=== PATIENT | male | born 1945 ===

== ENCOUNTER 2017-01-03 12:24 | Inpatient (IN) | payer OTHER ==
[2017-01-03 12:34] VITALS: BMI 29.1
[2017-01-03] MEDS ORDERED: Albuterol 0.083% Inhal Sol (2.5 mg/3 mL) UD IH STA (13:03)
--- NOTE | 2017-01-03 13:07 | C.PDOC ---
History Of Present Illness <Esther Lovett - Last Filed: 01/03/17 13:45> <Juana Dickson - Last Filed: 01/03/17 18:14> 71 yo male w/PMHx of CAD s/p CABG 4 yrs ago, smoker, on Coumadin, admits homeless at present time (arrived from [place] and currently leave in car for 3 months), come in for evaluation of SOB on exertion, peripheral edema gradually developed for past few days associated with chest tightness, upper back pain. Otherwise, pt denies high fever, chills, headache, dizziness, wheezing, palpitation, diaphoresis, abd. pain, N/V/D, UTI sx, denies weakness, sensory or vascular deficits. At present time, pt appears in mod respiratory distress. Poor historian. no family member available. (Juana Dickson) <Esther Lovett - Last Filed: 01/03/17 13:45> History Per: Patient Onset/Duration Of Symptoms: Gradual Current Symptoms Are (Timing): Worse <RandolphJuana - Last Filed: 01/03/17 18:14> Time Seen by Provider: 01/03/17 12:46 Past Medical History Reviewed: Historical Data, Nursing Documentation, Vital Signs - Medical History PMH: AMI-STEMI, Atrial Fibrillation, CAD, Cardia Arrhythmia, CHF, COPD, HTN Surgical History: CABG (4 yrs ago) Family History: States: No Known Family Hx - Social History Hx Tobacco Use: Yes Hx Alcohol Use: No Hx Substance Use: No - Immunization History Hx Tetanus Toxoid Vaccination: No Hx Influenza Vaccination: No Hx Pneumococcal Vaccination: No <ClarencefranciscaJuana - Last Filed: 01/03/17 18:14> Vital Signs: Last Vital Signs Temp 97.6 F 01/03/17 12:47 Pulse 104 H 01/03/17 15:21 Resp 23 01/03/17 15:21 BP 119/78 01/03/17 15:21 Pulse Ox 100 01/03/17 16:12 Review Of Systems Except As Marked, All Systems Reviewed And Found Negative. Constitutional: Negative for: Fever, Chills Eyes: Negative for: Vision Change ENT: Negative for: Mouth Swelling, Throat Pain Cardiovascular: Positive for: Chest Pain, Orthopnea, Edema. Negative for: Palpitations, Light Headedness Respiratory: Positive for: Shortness of Breath, SOB with Excertion. Negative for: Cough, Wheezing Gastrointestinal: Negative for: Nausea, Vomiting, Abdominal Pain Genitourinary: Negative for: Dysuria, Frequency, Incontinence Musculoskeletal: Negative for: Neck Pain, Back Pain Skin: Negative for: Rash Neurological: Negative for: Weakness, Numbness, Altered Mental Status, Headache , Dizziness <Juana Dickson - Last Filed: 01/03/17 18:14> Physical Exam - Physical Exam Appears: Well, Non-toxic, No Acute Distress Skin: Normal Color, Warm, Dry, No Rash Head: Atraumatic, Normacephalic Eye(s): bilateral: Normal Inspection, PERRL, EOMI Ear(s): Bilateral: Normal Nose: Normal, No Discharge Oral Mucosa: Moist, No Drooling Tongue: Normal Appearing Lips: Normal Appearing Throat: Normal, No Erythema, No Exudate, No Drooling Neck: Normal, Normal ROM, Trachea Midline Cardiovascular: Rhythm Irregular (TACHY), No Friction Rub, No Murmur, JVD Respiratory: Normal Breath Sounds, Decreased Breath Sounds (bibasilar), No Stridor, No Wheezing Gastrointestinal/Abdominal: Normal Exam, Soft, No Tenderness, No Distention, No Guarding Back: Normal Inspection, No Vertebral Tenderness Extremity: Normal ROM, Pedal Edema (L>R pitting edema 2+/2+ B/L lEs), No Calf Tenderness, No Deformity Neurological/Psych: Oriented x3, Normal Speech, Normal Motor, Normal Sensation, Normal Reflexes <Juana Dickson - Last Filed: 01/03/17 18:14> ED Course And Treatment - Laboratory Results Result Diagrams: 01/03/17 13:23 01/03/17 13:23 <Esther Lovett - Last Filed: 01/03/17 13:45> - Laboratory Results Result Diagrams: 01/03/17 13:23 01/03/17 13:23 ECG: Interpreted By Me (AND ED ATTENDING) ECG Interpretation: Normal, No Acute Changes, Abnormal Interpretation Of ECG: sINUS TACHY WITH PACED@111/MIN,INCOMPLETE RBBB O2 Sat by Pulse Oximetry: 100 Pulse Ox Interpretation: Normal - Radiology CXR: Interpreted by Me, Viewed By Me CXR Interpretation: Yes: Cardiomegaly - Other Rad CXR X-Ray: Read By Radiologist Interpretation: Accession No. : [id number]. Patient Name / ID : WILTON BEAR / [id number]. Exam Date : 01/03/2017 12:55:47 ( Approved ). Study Comment : Sex / Age : M / [id number]. Creator : FREDO BABCOCK MD. Dictator : FREDO BABCOCK MD. Mooner : Filter Helper : FREDO BABCOCK MD. Approver2 : Report Date : 01/03/2017 13:20:21. My Comment : . PROCEDURE: CHEST RADIOGRAPH, 1 VIEW. HISTORY: chest pain. COMPARISON: None available. FINDINGS: LUNGS: There is pulmonary venous congestion. There is no focal consolidation. PLEURA: No pneumothorax or pleural fluid seen. CARDIOVASCULAR: There is mild cardiomegaly. Status post median sternotomy and aortic valve replacement. There is a left-sided AICD. OSSEOUS STRUCTURES: No significant abnormalities. VISUALIZED UPPER ABDOMEN: Normal. OTHER FINDINGS: None. IMPRESSION: Mild cardiomegaly and pulmonary venous congestion. Progress Note: Pt was OBS in ED for 2 hours and slightly improved during OBS after ED tx. Lasix/Vapotherm/Cardizem qtt. traffic monitor specialist. Case discussed with ED qattenidng and pt was evaluated by . Blood work review. Case discussed with med-on-call and admission arranged. Admission to medicine-on- call placed <Juana Dickson - Last Filed: 01/03/17 18:14> Supervising Attending Note - Supervising Attending Note The Documented history was done by the: Physician Geoint Analyst The documented physical exam was done by the: Physician Geoint Analyst The documented procedures were done by the: Physician Geoint Analyst EM CAVEAT: Language Barrier - Attestation: I have personally seen and examined this patient.: Yes I have fully participated in the care of the patient.: Yes I have reviewed all pertinent clinical information, including history, physical exam and plan: Yes <Esther Lovett - Last Filed: 01/03/17 13:45> <Juana Dickson - Last Filed: 01/03/17 18:14> - Notes: Notes:: ?NEW ONSET VS EXAC CHF X 2 DAYS. +SOB/SIEGEL. +SWELLING. ON COUMADIN. HO PPM. HO CABG EXAM ABOVE (Esther Lovett) Critical Care Time - Critical Care Note Total Time (in mins): 40 Documented critical care: time excludes all time spent performing seperately billable procedures. <Juana Dickson - Last Filed: 01/03/17 18:14> Disposition <Esther Lovett - Last Filed: 01/03/17 13:45> - Disposition Disposition Time: 14:50 <Juana Dickson - Last Filed: 01/03/17 18:14> - Disposition Disposition: HOSPITALIZED Condition: STABLE - Clinical Impression Clinical Impression: Acute exacerbation of CHF (congestive heart failure)
[2017-01-03] MEDS ORDERED: Albuterol 0.083% Inhal Sol (2.5 mg/3 mL) UD ONE (13:14)
--- NOTE | 2017-01-03 13:21 | RAD ---
PROCEDURE: CHEST RADIOGRAPH, 1 VIEW HISTORY: chest pain COMPARISON: None available. FINDINGS: LUNGS: There is pulmonary venous congestion. There is no focal consolidation PLEURA: No pneumothorax or pleural fluid seen. CARDIOVASCULAR: There is mild cardiomegaly. Status post median sternotomy and aortic valve replacement. There is a left-sided AICD. OSSEOUS STRUCTURES: No significant abnormalities. VISUALIZED UPPER ABDOMEN: Normal. OTHER FINDINGS: None. IMPRESSION: Mild cardiomegaly and pulmonary venous congestion.
[2017-01-03 13:25] LABS: BASO # 0.1 K/uL (0.0-0.2); BASO % 2.7 % (0.0-2.0); EOS # 0.1 K/uL (0.0-0.7); EOS % 2.7 % (0.0-4.0); HEMATOCRIT 37.9 % (35.0-51.0); LYMPH # 0.7 K/uL (1.0-4.3); LYMPH % 12.4 % (20.0-40.0); MEAN CELL VOLUME 80.9 fL (80.0-94.0); MEAN CORPUSCULAR HEMOGLOBIN 26.5 pg (27.0-31.0); MEAN CORPUSCULAR HGB CONC 32.8 g/dL (33.0-37.0); MONO # 0.7 K/uL (0.0-0.8); MONO % 13.1 % (0.0-10.0); WHITE BLOOD COUNT 5.4 K/uL (4.8-10.8)
[2017-01-03 13:33] LABS: CHLORIDE 99 mmol/L (98-107); SODIUM 141 mmol/L (132-148)
[2017-01-03 13:35] LABS: POTASSIUM 5.4 mmol/L (3.6-5.2)
[2017-01-03 13:36] LABS: ALB/GLOB RATIO 1.1 (1.0-2.1); ALKALINE PHOSPHATASE 96 U/L (38-126); ALT/SGPT 34 U/L (21-72); AST/SGOT 44 U/L (17-59); BILIRUBIN,TOTAL 1.1 mg/dL (0.2-1.3); BLOOD UREA NITROGEN 12 mg/dL (9-20); CARBON DIOXIDE 26 mmol/L (22-30); GFR AFRICAN-AMERICAN > 60; GLUCOSE,RANDOM 90 mg/dL (75-110); TOTAL PROTEIN 7.5 g/dL (6.3-8.3)
[2017-01-03 13:37] LABS: CALCIUM 9.6 mg/dl (8.6-10.4)
[2017-01-03 16:43] LABS: INR 1.3; PARTIAL THROMBOPLASTIN TIME 33 SECONDS (21-34)
--- NOTE | 2017-01-03 20:34 | CP.PCM.HP ---
History of Present Illness - History of Present Illness History of Present Illness: Patient is a 71 year old male with past medical history including AL, CAD with history of CABG and valve replacement 6-7 years ago. Patient reports that for the past 2-3 days he has had shortness of breath and dizziness that has been getting progressively worse. Patient also reports right-sided chest pain that is reproducible on palpation. Patient states he has been living in his car and has not had medical care recently since moving to [place]. Patient denies palpitations, chest pressure, abdominal pain, nausea, or vomiting. Patient also reports taking 5mg of coumadin nightly but does not know for what condition he takes it. Patient denies history of blood clots. Patient currently resting comfortably on high flow oxygen by nasal canula. PMHx: CAD, AL, arrhythmia PSHx: CABG with vessel harvest from right leg, valve replacement Meds: coumadin 5mg FamHx: denies Social Hx: smokes 2-3 cigarettes per day for 60 years, denies alcohol and drugs , homeless- lives in car Present on Admission - Present on Admission Any Indicators Present on Admission: No Review of Systems - Constitutional Constitutional: Lethargy. absent: Chills, Fever - EENT Eyes: absent: Blurred Vision Nose/Mouth/Throat: absent: Nasal Congestion - Cardiovascular Cardiovascular: Dyspnea, Leg Edema, Lightheadedness. absent: Chest Pain at Rest , Palpitations - Respiratory Respiratory: Dyspnea, Dyspnea on Exertion - Gastrointestinal Gastrointestinal: absent: Diarrhea, Nausea, Vomiting - Genitourinary Genitourinary: absent: Difficulty Urinating - Integumentary Integumentary: absent: Rash - Neurological Neurological: Dizziness Past Patient History - Infectious Disease Hx of Infectious Diseases: None - Past Medical History & Family History Past Medical History?: Yes - Past Social History Smoking Status: Light Smoker < 10 Cigarettes Daily - CARDIAC Hx Atrial Fibrillation: Yes Hx Cardia Arrhythmia: Yes Hx Congestive Heart Failure: Yes Hx Hypertension: Yes Hx Pacemaker: Yes - PULMONARY Hx Chronic Obstructive Pulmonary Disease (COPD): Yes - MUSCULOSKELETAL/RHEUMATOLOGICAL Hx Falls: No - PSYCHIATRIC Hx Substance Use: No - SURGICAL HISTORY Hx Coronary Artery Bypass Graft: Yes (4 yrs ago) - ANESTHESIA Hx Anesthesia: Yes Hx Anesthesia Reactions: No Hx Malignant Hyperthermia: No Meds Allergies/Adverse Reactions: Allergies Allergy/AdvReac Type Severity Reaction Status Date / Time No Known Allergies Allergy Verified 01/03/17 12:47 Physical Exam - Constitutional Appears: Non-toxic, No Acute Distress - Head Exam Head Exam: ATRAUMATIC, NORMOCEPHALIC - Eye Exam Eye Exam: EOMI - ENT Exam ENT Exam: Mucous Membranes Moist - Respiratory Exam Respiratory Exam: Rales, Wheezes - Cardiovascular Exam Cardiovascular Exam: +S1, +S2 - GI/Abdominal Exam GI & Abdominal Exam: Normal Bowel Sounds, Soft. absent: Tenderness - Extremities Exam Extremities exam: Positive for: pedal edema (bilateral pitting edema) Additional comments: scar right leg from vessel harvest - Neurological Exam Neurological exam: Alert - Psychiatric Exam Psychiatric exam: Normal Affect, Normal Mood - Skin Skin Exam: Dry, Warm Results - Vital Signs Recent Vital Signs: Last Vital Signs Temp 98.0 F 01/03/17 19:46 Pulse 80 01/03/17 19:46 Resp 16 01/03/17 20:10 BP 107/75 01/03/17 19:46 Pulse Ox 98 01/03/17 19:59 - Labs Result Diagrams: 01/03/17 13:23 01/03/17 21:37 Labs: Laboratory Results - last 24 hr 01/03/17 16:01 PT 14.5 H INR 1.3 APTT 33 D-Dimer, Quantitative < 200 Assessment & Plan (1) Acute exacerbation of CHF (congestive heart failure) Assessment and Plan: admit to telemetry BNP 4560 on admission patient received 20mg IV lasix in ER will continue with lasix 40mg IV BID starting aldactone 25mg PO Daily starting digoxin- will give 0.25mg today, start 0.125mg tomorrow starting lisinopril 10mg daily patient with AICD, will check echo to determine EF CXR: mild cardiomegaly, mild pulmonary venous congestion. s/p sternotomy, aortic valve replacement, AICD Status: Acute (2) History of AL (myocardial infarction) Assessment and Plan: first troponin 0.0360, second troponin 0.0180 will continue to trend Status: Acute (3) Hyperkalemia Assessment and Plan: potassium 5.4 on admission patient received lasix and albuterol nebulizer in ED repeat BMP potassium 4.1 Status: Acute (4) Tachycardia Assessment and Plan: EKG in ER: sinus tachycardia at 100, paced, incomplete RBBB patient started on cardizem drip at 5mg/h in the ER- will discontinue starting patient on digoxin- one dose 0.25mg today, 0.125mg starting tomorrow Status: Acute (5) Lower extremity edema Assessment and Plan: will check venous doppler Status: Acute (6) Prophylactic measure Assessment and Plan: lovenox 40u sc daily protonix 40mg daily Status: Acute
[2017-01-03 21:53] LABS: CHLORIDE 98 mmol/L (98-107); SODIUM 138 mmol/L (132-148)
[2017-01-03 21:54] LABS: POTASSIUM 4.1 mmol/L (3.6-5.2); URINE BILIRUBIN NEGATIVE (NEGATIVE); URINE BLOOD NEGATIVE (NEGATIVE); URINE COLOR Yellow (YELLOW); URINE GLUCOSE (UA) NORMAL (Normal); URINE KETONE NEGATIVE (NEGATIVE); URINE LEUKOCYTE ESTERASE NEG Leu/uL (Negative); URINE PROTEIN NEGATIVE (NEGATIVE)
[2017-01-03 21:56] LABS: BLOOD UREA NITROGEN 14 mg/dL (9-20); CARBON DIOXIDE 28 mmol/L (22-30); GFR AFRICAN-AMERICAN > 60
[2017-01-03 21:57] LABS: CALCIUM 9.4 mg/dl (8.6-10.4); GLUCOSE,RANDOM 110 mg/dL (75-110)
[2017-01-03 22:00] LABS: RBC URINE 2 /hpf (0-3)
[2017-01-03] MEDS ORDERED: Digoxin 250 mcg (0.25 mg) Tab PO STA (22:41)
[2017-01-03] MEDS: Enoxaparin 40 mg Syringe SC SCH (23:25)
[2017-01-04 03:46] LABS: BASO # 0.1 K/uL (0.0-0.2); BASO % 1.8 % (0.0-2.0); EOS # 0.2 K/uL (0.0-0.7); EOS % 3.3 % (0.0-4.0); HEMATOCRIT 33.2 % (35.0-51.0); LYMPH # 0.6 K/uL (1.0-4.3); LYMPH % 11.3 % (20.0-40.0); MEAN CELL VOLUME 79.8 fL (80.0-94.0); MEAN CORPUSCULAR HEMOGLOBIN 26.6 pg (27.0-31.0); MEAN CORPUSCULAR HGB CONC 33.4 g/dL (33.0-37.0); MEAN PLATELET VOLUME 7.8 fL (7.2-11.7); MONO # 0.6 K/uL (0.0-0.8); MONO % 9.9 % (0.0-10.0); RED CELL DISTRIBUTION WIDTH 19.5 % (11.5-14.5); WHITE BLOOD COUNT 5.6 K/uL (4.8-10.8)
[2017-01-04 03:53] LABS: CHLORIDE 99 mmol/L (98-107)
[2017-01-04 03:54] LABS: POTASSIUM 4.1 mmol/L (3.6-5.2); SODIUM 140 mmol/L (132-148)
[2017-01-04 03:56] LABS: BILIRUBIN,TOTAL 0.9 mg/dL (0.2-1.3); CARBON DIOXIDE 28 mmol/L (22-30); CHOLESTEROL 134 mg/dL (0-199); GFR AFRICAN-AMERICAN > 60
[2017-01-04 03:57] LABS: ALB/GLOB RATIO 0.9 (1.0-2.1); ALKALINE PHOSPHATASE 92 U/L (38-126); ALT/SGPT 32 U/L (21-72); AST/SGOT 30 U/L (17-59); BLOOD UREA NITROGEN 13 mg/dL (9-20); CALCIUM 9.5 mg/dl (8.6-10.4); GLUCOSE,RANDOM 88 mg/dL (75-110); TOTAL PROTEIN 6.6 g/dL (6.3-8.3)
[2017-01-04 04:14] LABS: T4 7.17 ug/dL (5.5-11.0)
[2017-01-04 05:16] LABS: THYROID STIMULATING HORMONE 1.02 mIU/L (0.46-4.68)
[2017-01-04] MEDS: Pantoprazole 40 mg EC Tab PO SCH (09:30)
[2017-01-04] MEDS: Enoxaparin 40 mg Syringe SC SCH (09:31)
--- NOTE | 2017-01-04 12:40 | CP.PCM.PN ---
Subjective - Date & Time of Evaluation Date of Evaluation: 01/04/17 Time of Evaluation: 10:00 - Subjective Subjective: Medicine Note- Dr Otoole's service Patient seen and examined. Patient states that he "feels bad." He has been having shortness of breath for about 3 days associated with swelling his bilateral LE. He says that this is the first time he has experienced these symptoms. The shortness of breath is worse when he lays flat. He denies difficulty with ambulation. Patient denies history of arrhythmia. Denies chest pain, cough, palpitations, headache, dizziness, syncope, nausea, vomiting , and abdominal pain. Objective - Vital Signs/Intake and Output Vital Signs (last 24 hours): Temp Pulse Resp BP Pulse Ox 97.9 F 96 H 20 162/78 H 98 01/04/17 07:00 01/04/17 08:21 01/04/17 08:34 01/04/17 09:31 01/04/17 07:00 Intake and Output: 01/04/17 01/04/17 06:59 18:59 Intake Total 350 Output Total 300 Balance 50 - Medications Medications: Current Medications Digoxin (Lanoxin) 0.125 mg PO DAILY@1800 [facility] Enoxaparin Sodium (Lovenox) 40 mg SC DAILY [facility] Last Admin: 01/04/17 09:31 Dose: 40 mg Furosemide (Lasix) 40 mg IVP BID [facility] Last Admin: 01/04/17 09:31 Dose: 40 mg Lisinopril (Zestril) 10 mg PO DAILY [facility] Last Admin: 01/04/17 09:30 Dose: 10 mg Pantoprazole Sodium (Protonix Ec Tab) 40 mg PO DAILY [facility] Last Admin: 01/04/17 09:30 Dose: 40 mg Spironolactone (Aldactone) 25 mg PO DAILY [facility] Last Admin: 01/04/17 09:30 Dose: 25 mg - Labs Labs: 01/04/17 03:44 01/04/17 03:44 PT 14.5 SECONDS (9.7-12.2) H 01/03/17 16:01 INR 1.3 01/03/17 16:01 APTT 33 SECONDS (21-34) 01/03/17 16:01 - Constitutional Appears: Non-toxic, No Acute Distress - Head Exam Head Exam: ATRAUMATIC, NORMOCEPHALIC - Eye Exam Eye Exam: EOMI, Normal appearance Pupil Exam: NORMAL ACCOMODATION - ENT Exam ENT Exam: Mucous Membranes Moist - Respiratory Exam Respiratory Exam: Decreased Breath Sounds, NORMAL BREATHING PATTERN. absent: Accessory Muscle Use, Rhonchi, Respiratory Distress - Cardiovascular Exam Cardiovascular Exam: REGULAR RHYTHM, +S1, +S2. absent: Irregular Rhythm - GI/Abdominal Exam GI & Abdominal Exam: Soft, Normal Bowel Sounds. absent: Guarding, Rigid, Tenderness - Extremities Exam Extremities Exam: Pedal Edema (bilateral 1+ pitting edema ). absent: Tenderness Additional comments: 2+ pedal pulses - Neurological Exam Neurological Exam: Alert, Awake, CN II-XII Intact, Oriented x3 - Psychiatric Exam Psychiatric exam: Normal Affect, Normal Mood - Skin Skin Exam: Dry, Intact, Normal Color, Warm Assessment and Plan - Assessment and Plan (Free Text) Assessment: (1) Acute exacerbation of CHF (congestive heart failure) Admit to telemetry BNP 4560 on admission patient received 20mg IV lasix in ER will continue with lasix 40mg IV BID starting aldactone 25mg PO Daily starting digoxin- will give 0.25mg today, start 0.125mg 01/05 lisinopril 10mg daily patient with AICD, will check echo to determine EF CXR: mild cardiomegaly, mild pulmonary venous congestion. s/p sternotomy, aortic valve replacement, AICD (2) History of ID (myocardial infarction) ROMIs negative x3 EKG paced Denies chest pain Crestor 10mg PO HS Per Dr Otoole, pt likely not taking Coumadin regularly due to low INR. Will not restart this medication until ECHO done. (3) Hyperkalemia Resolved potassium 5.4 on admission patient received lasix and albuterol nebulizer in ED repeat BMP potassium 4.1 (4) Tachycardia EKG in ER: sinus tachycardia at 100, paced, incomplete RBBB patient started on cardizem drip at 5mg/h in the ER- will discontinue started patient on digoxin (5) Lower extremity edema will check venous doppler (6) Prophylactic measure lovenox 40u sc daily protonix 40mg daily SCD contraindicated due to LE edema Discussed with Dr Otoole
[2017-01-04] MEDS: Digoxin 125 mcg (0.125 mg) Tab PO SCH (17:40)
[2017-01-05] MEDS: Pantoprazole 40 mg EC Tab PO SCH (10:39)
[2017-01-05] MEDS: Enoxaparin 40 mg Syringe SC SCH (10:39)
--- NOTE | 2017-01-05 11:52 | CP.PCM.PN ---
<Lenny Adam - Last Filed: 01/05/17 17:57> Subjective - Date & Time of Evaluation Date of Evaluation: 01/05/17 Time of Evaluation: 07:20 - Subjective Subjective: PGY1 Medicine Note- Dr Otoole Patient seen and examined at bedside. No overnight events per nursing. Patient admits to SOB while lying flat and while speaking. +BM yesterday and + urination. Denies difficulty with ambulation or history of arrhythmia. Denies f/ c, headache, dizziness, chest pain, palpitations, cough, abdominal pain, n/v, d/ c, or any additional complaints. Objective - Vital Signs/Intake and Output Vital Signs (last 24 hours): Temp Pulse Resp BP Pulse Ox 98.2 F 87 20 106/69 97 01/05/17 08:36 01/05/17 08:36 01/05/17 08:36 01/05/17 10:39 01/05/17 08:36 Intake and Output: 01/05/17 01/05/17 06:59 18:59 Output Total 300 Balance -300 - Medications Medications: Current Medications Digoxin (Lanoxin) 0.125 mg PO DAILY@1800 [facility] Last Admin: 01/04/17 17:40 Dose: 0.125 mg Enoxaparin Sodium (Lovenox) 40 mg SC DAILY [facility] Last Admin: 01/05/17 10:39 Dose: 40 mg Furosemide (Lasix) 40 mg IVP BID [facility] Last Admin: 01/05/17 10:39 Dose: 40 mg Lisinopril (Zestril) 10 mg PO DAILY [facility] Last Admin: 01/05/17 10:39 Dose: 10 mg Pantoprazole Sodium (Protonix Ec Tab) 40 mg PO DAILY [facility] Last Admin: 01/05/17 10:39 Dose: 40 mg Rosuvastatin Calcium (Crestor) 10 mg PO HS [facility] Last Admin: 01/04/17 21:20 Dose: Not Given Spironolactone (Aldactone) 25 mg PO DAILY [facility] Last Admin: 01/05/17 10:39 Dose: 25 mg - Labs Labs: 01/04/17 03:44 01/04/17 03:44 PT 14.5 SECONDS (9.7-12.2) H 01/03/17 16:01 INR 1.3 01/03/17 16:01 APTT 33 SECONDS (21-34) 01/03/17 16:01 - Constitutional Appears: Non-toxic, No Acute Distress - Head Exam Head Exam: ATRAUMATIC - Eye Exam Eye Exam: EOMI - ENT Exam ENT Exam: Mucous Membranes Moist - Respiratory Exam Respiratory Exam: Decreased Breath Sounds, Wheezes, Respiratory Distress (SOB while speaking). absent: Clear to Ausculation Bilateral - Cardiovascular Exam Cardiovascular Exam: REGULAR RHYTHM, +S1, +S2 - GI/Abdominal Exam GI & Abdominal Exam: Soft, Normal Bowel Sounds. absent: Tenderness - Extremities Exam Extremities Exam: Pedal Edema (b/l 1+ pitting to mid thigh). absent: Tenderness Additional comments: pedal pulses 2+ - Neurological Exam Neurological Exam: Alert, Awake, Oriented x3 - Psychiatric Exam Psychiatric exam: Normal Affect - Skin Skin Exam: Dry, Normal Color, Warm Assessment and Plan - Assessment and Plan (Free Text) Assessment: 71 year old male with past medical history including SD, CAD with history of CABG and valve replacement 6-7 years ago. Reports worstenting SOB and dizziness with associated swelling of bilateral LE for past 2-3 days. Admits this is the first time he has experienced these symptoms. SOB is worse when he lays flat. Plan: (1) Acute exacerbation of CHF (congestive heart failure) Admit to telemetry, BNP 4560 on admission f/u ECHO - Pending Read f/u LE Duplex - Pending Read Lasix 40mg IV BID Digoxin 0.125mg Lisinopril 10mg daily Aldactone 25mg PO Daily patient with AICD, will check echo to determine EF CXR 01/03: mild cardiomegaly, mild pulmonary venous congestion. s/p sternotomy, aortic valve replacement, AICD (2) History of SD (myocardial infarction) Crestor 10mg PO HS Per Dr Otoole, pt likely not taking Coumadin regularly due to low INR. Will not restart this medication until ECHO done. ROMIs negative x3 EKG paced Denies chest pain (3) Hyperkalemia Continue to monitor Labs Resolved potassium 5.4 on admission -> repeat 4.1 patient received lasix and albuterol nebulizer in ED (4) Tachycardia EKG in ER: sinus tachycardia at 100, paced, incomplete RBBB Discontinued cardizem drip of 5mg/h started in the ER Continue Digoxin 0.125mg (5) Lower extremity edema f/u LE Duplex - Pending Read (6) Prophylactic measure lovenox 40u sc daily protonix 40mg daily SCD contraindicated due to LE edema <Johnnie Otoole Jr. - Last Filed: 01/15/17 17:00> Objective - Vital Signs/Intake and Output Vital Signs (last 24 hours): Temp Pulse Resp BP Pulse Ox 97.6 F 89 20 104/66 100 01/15/17 16:57 01/15/17 16:57 01/15/17 16:57 01/15/17 16:57 01/15/17 16:57 Intake and Output: 01/15/17 01/15/17 06:59 18:59 Intake Total 300 480 Output Total 800 500 Balance -500 -20 - Medications Medications: Current Medications Albuterol/Ipratropium (Duoneb 3 Mg/0.5 Mg (3 Ml) Ud) 3 ml INH RQ6 [facility] Last Admin: 01/15/17 13:05 Dose: 3 ml Budesonide (Pulmicort Respules) 0.5 mg INH RQ12 [facility] Last Admin: 01/15/17 07:42 Dose: 0.5 mg Digoxin (Lanoxin) 0.125 mg PO DAILY@1800 [facility] Last Admin: 01/14/17 17:02 Dose: 0.125 mg Furosemide (Lasix) 40 mg IVP BID [facility] Last Admin: 01/15/17 09:15 Dose: 40 mg Guaifenesin (Mucinex La) 600 mg PO BID [facility] Last Admin: 01/15/17 10:11 Dose: 600 mg Lisinopril (Zestril) 10 mg PO DAILY [facility] Last Admin: 01/15/17 09:15 Dose: 10 mg Methylprednisolone (Solu-Medrol) 40 mg IVP Q8 [facility] Last Admin: 01/15/17 13:21 Dose: 40 mg Pantoprazole Sodium (Protonix Ec Tab) 40 mg PO DAILY [facility] Last Admin: 01/15/17 09:15 Dose: 40 mg Rosuvastatin Calcium (Crestor) 10 mg PO HS [facility] Last Admin: 01/14/17 21:04 Dose: 10 mg Spironolactone (Aldactone) 25 mg PO DAILY [facility] Last Admin: 01/15/17 09:15 Dose: 25 mg Tiotropium Reliance (Spiriva) 18 mcg INH RQ24 [facility] Last Admin: 01/15/17 07:42 Dose: 18 mcg Warfarin Sodium (Coumadin) 5 mg PO 1800 [facility] Stop: 01/15/17 18:01 - Labs Labs: 01/15/17 11:10 01/15/17 11:10 PT 32.3 SECONDS (9.7-12.2) H* D 01/15/17 11:10 INR 2.8 D 01/15/17 11:10 APTT 31 SECONDS (21-34) D 01/15/17 11:10 Attending/Attestation - Attestation I have personally seen and examined this patient.: Yes I have fully participated in the care of the patient.: Yes I have reviewed all pertinent clinical information, including history, physical exam and plan: Yes Notes (Text): 01/15/17 17:00 Patient seen and examined with the resident. Reviewed resident note and agree with findings and plan of care. [ ]
--- NOTE | 2017-01-05 12:38 | CARD ---
APPROVED REPORT EKG Measurement Heart [id number] <Conclusion> Mostly ventricular paced rhythm, baseline of atrial fibrillation Intraventricular conduction delay left bundle type at the baseline rhythm Probable inappropriate sensing, pacing in the safety is not constant Abnormal ECG
--- NOTE | 2017-01-05 16:52 | VASCLAB ---
PROCEDURE: Lower Extremity Venous Duplex Exam. HISTORY: lower extremity edema PRIORS: None. TECHNIQUE: Bilateral common femoral, femoral, popliteal and posterior tibial, peroneal and great saphenous veins were evaluated. Flow was assessed with color Doppler, compressibility, assessment of phasic flow and augmentation response. Report prepared by EDELMIRA Preciado FINDINGS: RIGHT: 1. Common Femoral Vein: 1.1. Compressibility - Fully compressible: Thrombus - None : Flow - Phasic: Augmentation -Normal: Reflux - None. 2. Femoral Vein: 2.1. Compressibility - Fully compressible: Thrombus - None : Flow - Phasic: Augmentation -Normal: Reflux - None. 3. Popliteal Vein: 3.1. Compressibility - Fully compressible: Thrombus - None : Flow - Phasic: Augmentation -Normal: Reflux - None. 4. Posterior Tibial Vein: 4.1. Compressibility - Fully compressible: Thrombus - None: Flow - Phasic: Augmentation -Normal: Reflux - None. 5. Peroneal Vein: 5.1. Compressibility - Fully compressible: Thrombus - None: Flow - Phasic: Augmentation -Normal: Reflux - None. 6. Great Saphenous Vein: 6.1. Compressibility - Fully compressible: Thrombus - None: Flow - Phasic: Augmentation - Normal: Reflux - None. LEFT: 1. Common Femoral Vein: 1.1. Compressibility - Fully compressible: Thrombus - None: Flow - Phasic: Augmentation -Normal: Reflux - None. 2. Femoral Vein: 2.1. Compressibility - Fully compressible: Thrombus - None: Flow - Phasic: Augmentation -Normal: Reflux - None. 3. Popliteal Vein: 3.1. Compressibility - Fully compressible: Thrombus - None : Flow - Phasic: Augmentation -Normal: Reflux - None. 4. Posterior Tibial Vein: 4.1. Compressibility - Fully compressible: Thrombus - None: Flow - Phasic: Augmentation -Normal: Reflux - None. 5. Peroneal Vein: 5.1. Compressibility - Fully compressible: Thrombus - None: Flow - Phasic: Augmentation -Normal: Reflux - None. 6. Great Saphenous Vein: 6.1. Compressibility - Fully compressible: Thrombus - None: Flow - Phasic: Augmentation - Normal: Reflux - None. OTHER FINDINGS: Right: Lower extremity edema. Left: Lower extremity edema. IMPRESSION: Right: No evidence of deep or superficial vein thrombosis of the right lower extremity. Normal valve function noted of the right side. Left: No evidence of deep or superficial vein thrombosis of the left lower extremity. Normal valve function noted of the left side.
[2017-01-05] MEDS: Digoxin 125 mcg (0.125 mg) Tab PO SCH (17:49)
[2017-01-06 07:16] LABS: BASO % 0.6 % (0.0-2.0); EOS # 0.1 K/uL (0.0-0.7); EOS % 3.5 % (0.0-4.0); HEMATOCRIT 33.7 % (35.0-51.0); LYMPH # 0.6 K/uL (1.0-4.3); LYMPH % 14.3 % (20.0-40.0); MEAN CELL VOLUME 80.7 fL (80.0-94.0); MEAN CORPUSCULAR HEMOGLOBIN 26.9 pg (27.0-31.0); MEAN CORPUSCULAR HGB CONC 33.3 g/dL (33.0-37.0); MEAN PLATELET VOLUME 8.1 fL (7.2-11.7); MONO # 0.6 K/uL (0.0-0.8); MONO % 13.7 % (0.0-10.0); RED CELL DISTRIBUTION WIDTH 19.5 % (11.5-14.5); WHITE BLOOD COUNT 4.2 K/uL (4.8-10.8)
--- NOTE | 2017-01-06 07:51 | CP.PCM.PN ---
Subjective - Date & Time of Evaluation Date of Evaluation: 01/06/17 Time of Evaluation: 07:30 - Subjective Subjective: PGY1 Medicine Note- Dr Otoole Patient seen and examined at bedside. No overnight events per nursing. Patient admits to SOB while lying flat and while speaking. +BM yesterday and + urination. Denies difficulty with ambulation or history of arrhythmia. Denies f/ c, headache, dizziness, chest pain, palpitations, cough, abdominal pain, n/v, d/ c, or any additional complaints. Objective - Vital Signs/Intake and Output Vital Signs (last 24 hours): Temp Pulse Resp BP Pulse Ox 98.8 F 105 H 20 109/77 96 01/05/17 23:20 01/06/17 01:00 01/05/17 23:20 01/05/17 23:20 01/05/17 23:20 Intake and Output: 01/06/17 01/06/17 06:59 18:59 Intake Total 500 Balance 500 - Medications Medications: Current Medications Digoxin (Lanoxin) 0.125 mg PO DAILY@1800 [facility] Last Admin: 01/05/17 17:49 Dose: 0.125 mg Enoxaparin Sodium (Lovenox) 40 mg SC DAILY [facility] Last Admin: 01/05/17 10:39 Dose: 40 mg Furosemide (Lasix) 40 mg IVP BID [facility] Last Admin: 01/05/17 17:51 Dose: Not Given Lisinopril (Zestril) 10 mg PO DAILY [facility] Last Admin: 01/05/17 10:39 Dose: 10 mg Pantoprazole Sodium (Protonix Ec Tab) 40 mg PO DAILY [facility] Last Admin: 01/05/17 10:39 Dose: 40 mg Rosuvastatin Calcium (Crestor) 10 mg PO HS [facility] Last Admin: 01/05/17 21:56 Dose: Not Given Spironolactone (Aldactone) 25 mg PO DAILY [facility] Last Admin: 01/05/17 10:39 Dose: 25 mg - Labs Labs: 01/06/17 07:06 01/04/17 03:44 PT 14.5 SECONDS (9.7-12.2) H 01/03/17 16:01 INR 1.3 01/03/17 16:01 APTT 33 SECONDS (21-34) 01/03/17 16:01 - Additional Findings Additional findings: - Constitutional Appears: Non-toxic, No Acute Distress - Head Exam Head Exam: ATRAUMATIC - Eye Exam Eye Exam: EOMI - ENT Exam ENT Exam: Mucous Membranes Moist - Respiratory Exam Respiratory Exam: Decreased Breath Sounds, Wheezes, Respiratory Distress (SOB while speaking). absent: Clear to Ausculation Bilateral - Cardiovascular Exam Cardiovascular Exam: REGULAR RHYTHM, +S1, +S2 - GI/Abdominal Exam GI & Abdominal Exam: Soft, Normal Bowel Sounds. absent: Tenderness - Extremities Exam Extremities Exam: Pedal Edema (b/l 1+ pitting to mid thigh). absent: Tenderness Additional comments: pedal pulses 2+ - Neurological Exam Neurological Exam: Alert, Awake, Oriented x3 - Psychiatric Exam Psychiatric exam: Normal Affect - Skin Skin Exam: Dry, Normal Color, Warm Assessment and Plan - Assessment and Plan (Free Text) Assessment: 71 year old male with past medical history including MA, CAD with history of CABG and valve replacement 6-7 years ago. Reports worstenting SOB and dizziness with associated swelling of bilateral LE for past 2-3 days. Admits this is the first time he has experienced these symptoms. SOB is worse when he lays flat. Plan: Acute exacerbation of CHF (congestive heart failure) Admit to telemetry, BNP 4560 on admission f/u ECHO - Pending Read Consulted Cardiology, Dr. Arguelles - f/u recs Lasix 40mg IV BID Digoxin 0.125mg Lisinopril 10mg daily Aldactone 25mg PO Daily patient with AICD, will check echo to determine EF CXR 01/03: mild cardiomegaly, mild pulmonary venous congestion. s/p sternotomy, aortic valve replacement, AICD History of Cardiac Valve replacement Cardiac valve replacement 6-7yrs ago Start Coumadin 10mg Bridge with Heparin Drip - cardiac protocol, with bolus f/u PT/INR History of MA (myocardial infarction) Crestor 10mg PO HS ROMIs negative x3 EKG paced Denies chest pain Shortness of Breath +wheezing Spiriva 18mcg INH RQ24 Advair Diskus 100/50 1puff INH RQ12 Electrolyte Imbalance Hyperkalemia - resolved Tachycardia EKG in ER: sinus tachycardia at 100, paced, incomplete RBBB Continue Digoxin 0.125mg Discontinued cardizem drip of 5mg/h started in the ER Lower extremity edema LE Duplex - negative. see full report. Prophylactic measure STOP lovenox 40u sc daily protonix 40mg daily SCD contraindicated due to LE edema
[2017-01-06 08:03] LABS: CHLORIDE 97 mmol/L (98-107); POTASSIUM 4.3 mmol/L (3.6-5.2); SODIUM 136 mmol/L (132-148)
[2017-01-06 08:05] LABS: ALB/GLOB RATIO 1.2 (1.0-2.1); ALKALINE PHOSPHATASE 95 U/L (38-126); ALT/SGPT 26 U/L (21-72); AST/SGOT 25 U/L (17-59); BILIRUBIN,TOTAL 0.9 mg/dL (0.2-1.3); BLOOD UREA NITROGEN 17 mg/dL (9-20); CARBON DIOXIDE 29 mmol/L (22-30); GFR AFRICAN-AMERICAN > 60; GLUCOSE,RANDOM 81 mg/dL (75-110); TOTAL PROTEIN 6.5 g/dL (6.3-8.3)
[2017-01-06 08:06] LABS: CALCIUM 9.7 mg/dl (8.6-10.4); MAGNESIUM 1.8 mg/dL (1.6-2.3); PHOSPHOROUS 3.5 mg/dL (2.5-4.5)
[2017-01-06] MEDS: Pantoprazole 40 mg EC Tab PO SCH (09:58)
[2017-01-06] MEDS: Enoxaparin 40 mg Syringe SC SCH (10:00)
[2017-01-06] MEDS ORDERED: Heparin25000 units/250ml 1/2NS 250 ML IV PRN ×2 (13:23→14:02)
[2017-01-06] MEDS: Digoxin 125 mcg (0.125 mg) Tab PO SCH (20:16)
[2017-01-06] MEDS: Fluticasone-Salmeterol 100-50mcg Diskus INH SCH (21:05)
--- NOTE | 2017-01-07 05:34 | CP.PCM.CON ---
History of Present Illness - History of Present Illness History of Present Illness: I was asked to see patient by Dr. Otoole. Patient is a 71 year old male with PMH CAD, s/p CABG (graft status unknown), ischemic cardiomyopathy s/p AICD, mechnical MVR who presents with dyspnea. The patient's previous cardiac care was in [place]. He was noted to have progressive dyspnea for one week. The patient denies chest pain. It is unclear how compliant patient has been with medical therapy. Review of Systems - Constitutional Constitutional: absent: As Per HPI, Anorexia, Chills, Daytime Sleepiness, Excessive Sweating, Fatigue, Fever, Frequent Falls, Headache, Increased Appetite , Lethargy, Malaise, Night Sweats, Snoring, Sleep Apnea, Weight Gain, Weight Loss, Weakness, Other - EENT Eyes: absent: As Per HPI, Blind Spots, Blurred Vision, Change in Vision, Decreased Night Vision, Diplopia, Discharge, Dry Eye, Exophthalmos, Floaters, Irritation, Itchy Eyes, Loss of Peripheral Vision, Pain, Photophobia, Requires Corrective Lenses, Sees Flashes, Spots in Vision, Tunnel Vision, Other Visual Disturbances, Loss of Vision, Other Nose/Mouth/Throat: absent: As Per HPI, Epistaxis, Nasal Congestion, Nasal Discharge, Nasal Obstruction, Nasal Trauma, Nose Pain, Post Nasal Drip, Sinus Pain, Sinus Pressure, Bleeding Gums, Change in Voice, Dental Pain, Dry Mouth, Dysphagia, Halitosis, Hoarsness, Lip Swelling, Mouth Lesions, Mouth Pain, Odynophagia, Sore Throat, Throat Swelling, Tongue Swelling, Facial Pain, Neck Pain, Neck Mass, Other - Cardiovascular Cardiovascular: Dyspnea, Pedal Edema - Respiratory Respiratory: Dyspnea - Gastrointestinal Gastrointestinal: absent: As Per HPI, Abdominal Pain, Belching, Bloating, Change in Bowel Habits, Change in Stool Character, Coffee Ground Emesis, Constipation, Cramping, Diarrhea, Dyspepsia, Dysphagia, Early Satiety, Excessive Flatus, Fecal Incontinence, Heartburn, Hematemesis, Hematochezia, Loose Stools, Melena, Nausea, Odynophagia, Temesmus, Vomiting, Other - Genitourinary Genitourinary: absent: As Per HPI, Change in Urinary Stream, Difficulty Urinating, Dysuria, Flank Pain, Hematuria, Pyuria, Nocturia, Urinary Incontinence, Urinary Frequency, Urinary Hesitance, Urinary Urgency, Voiding Freq/Small Amts, Freq UTI, Hx Renal/Bladder Calculi, Hx /Renal Surgery, Bladder Distension, Other - Musculoskeletal Musculoskeletal: absent: As Per HPI, Abnormal Gait, Arthralgias, Atrophy, Back Pain, Deformity, Joint Swelling, Limited Range of Motion, Loss of Height, Muscle Cramps, Muscle Weakness, Myalgias, Neck Pain, Numbness, Radiating Pain into Limb, Stiffness, Tingling, Other - Integumentary Integumentary: absent: As Per HPI, Acne, Alopecia, Bleeding Lesions, Change in Hair, Change in Nails, Change in Pigmentation, Changing Lesions, Dry Skin, Erythema, Furuncle, Hirsutism, Lesions, New Lesions, Non-Healing Lesions, Photosensitivity, Pruritus, Rash, Skin Pain, Skin Ulcer, Sores, Striae, Swelling , Unusual Bruising, Wounds, Jaundice, Other - Neurological Neurological: absent: As Per HPI, Abnormal Gait, Abnormal Hearing, Abnormal Movements, Abnormal Speech, Behavioral Changes, Burning Sensations, Confusion, Convulsions, Disequilibrium, Dizziness, Numbness, Focal Weakness, Frequent Falls , Headaches, Lack of Coordination, Loss of Vision, Memory Loss, Paresthesias, Radicular Pain, Restless Legs, Sensory Deficit, Syncope, Tingling, Tremor, Vertigo, Weakness, Other Visual Disturbances, Other - Psychiatric Psychiatric: absent: As Per HPI, Abnormal Sleep Pattern, Anhedonia, Anxiety, Auditory Hallucinations, Behavioral Changes, Change in Appetite, Change in Libido, Confusion, Depression, Difficulty Concentrating, Hallucinations, Homicidal Ideation, Hopelessness, Irritability, Memory Loss, Mood Swings, Panic Attacks, Paranoia, Suicidal Ideation, Visual Hallucinations, Tactile Hallucinations, Other - Endocrine Endocrine: absent: As Per HPI, Change in Body Appearance, Change in Libido, Cold Intolorance, Deepening of Voice, Excessive Sweating, Fatigue, Flushing, Heat Intolorance, Increase in Ring/Shoe/Hat Size, Palpitations, Polydipsia, Polyphagia, Polyuria, Other - Hematologic/Lymphatic Hematologic: absent: As Per HPI, Easy Bleeding, Easy Bruising, Lymphadenopathy, Other Past Patient History - Infectious Disease Hx of Infectious Diseases: None - Past Medical History & Family History Past Medical History?: Yes - Past Social History Smoking Status: Light Smoker < 10 Cigarettes Daily - CARDIAC Hx Cardiac Disorders: (A-fib) Hx Congestive Heart Failure: Yes Hx Hypertension: Yes - PULMONARY Hx Chronic Obstructive Pulmonary Disease (COPD): Yes - MUSCULOSKELETAL/RHEUMATOLOGICAL Hx Falls: No - PSYCHIATRIC Hx Substance Use: No - SURGICAL HISTORY Hx Coronary Artery Bypass Graft: Yes (4 yrs ago) - ANESTHESIA Hx Anesthesia: Yes Hx Anesthesia Reactions: No Hx Malignant Hyperthermia: No Meds Allergies/Adverse Reactions: Allergies Allergy/AdvReac Type Severity Reaction Status Date / Time No Known Allergies Allergy Verified 01/03/17 12:47 - Medications Medications: Current Medications Digoxin (Lanoxin) 0.125 mg PO DAILY@1800 [facility] Last Admin: 01/06/17 20:16 Dose: 0.125 mg Furosemide (Lasix) 40 mg IVP BID [facility] Last Admin: 01/06/17 18:30 Dose: 40 mg Heparin Sodium/Sodium Chloride (Heparin 78095 Units/250ml 1/2 Normal Saline) 250 mls @ 11.323 mls/hr IV .Q22H5M PRN; Protocol; 12 UNITS/KG/HR PRN Reason: PROTOCOL Last Admin: 01/06/17 18:51 Dose: 11.323 mls/hr Lisinopril (Zestril) 10 mg PO DAILY [facility] Last Admin: 01/06/17 09:58 Dose: 10 mg Pantoprazole Sodium (Protonix Ec Tab) 40 mg PO DAILY [facility] Last Admin: 01/06/17 09:58 Dose: 40 mg Rosuvastatin Calcium (Crestor) 10 mg PO HS [facility] Last Admin: 01/06/17 22:24 Dose: Not Given Fluticasone/Salmeterol (Advair Diskus 100/50) 1 puff INH RQ12 [facility] Last Admin: 01/06/17 21:05 Dose: 1 puff Spironolactone (Aldactone) 25 mg PO DAILY [facility] Last Admin: 01/06/17 09:57 Dose: 25 mg Tiotropium [place] (Spiriva) 18 mcg INH RQ24 [facility] Physical Exam - Constitutional Appears: Non-toxic - Head Exam Head Exam: NORMAL INSPECTION - Eye Exam Eye Exam: Normal appearance - ENT Exam ENT Exam: Mucous Membranes Moist - Neck Exam Neck exam: Positive for: Full Rom - Respiratory Exam Respiratory Exam: Decreased Breath Sounds - Cardiovascular Exam Cardiovascular Exam: Irregular Rhythm Additional comments: mechanical first heart sound - GI/Abdominal Exam GI & Abdominal Exam: Normal Bowel Sounds - Rectal Exam Rectal Exam: Deferred - Extremities Exam Extremities exam: Positive for: pedal edema - Back Exam Back exam: NORMAL INSPECTION - Neurological Exam Neurological exam: Alert, Oriented x3 - Psychiatric Exam Psychiatric exam: Normal Affect - Skin Skin Exam: Normal Color Results - Vital Signs Recent Vital Signs: Last Vital Signs Temp 97.8 F 01/06/17 23:30 Pulse 68 01/06/17 23:30 Resp 20 01/06/17 23:30 BP 138/65 01/06/17 23:30 Pulse Ox 97 01/06/17 23:30 - Labs Result Diagrams: 01/06/17 07:06 01/06/17 07:06 Labs: Laboratory Results - last 24 hr 01/06/17 07:06 WBC 4.2 L RBC 4.18 L Hgb 11.2 L Hct 33.7 L MCV 80.7 MCH 26.9 L MCHC 33.3 RDW 19.5 H Plt Count 172 MPV 8.1 Neut % (Auto) 67.9 Lymph % (Auto) 14.3 L [place] % (Auto) 13.7 H Eos % (Auto) 3.5 Baso % (Auto) 0.6 Neut # 2.9 Lymph # 0.6 L [place] # 0.6 Eos # 0.1 Baso # 0.0 Sodium 136 Potassium 4.3 Chloride 97 L Carbon Dioxide 29 Anion Gap 14 BUN 17 Creatinine 1.2 Est GFR ( Amer) > 60 Est GFR (Non-Af Amer) 60 Random Glucose 81 Calcium 9.7 Phosphorus 3.5 Magnesium 1.8 Total Bilirubin 0.9 AST 25 ALT 26 Alkaline Phosphatase 95 Total Protein 6.5 Albumin 3.5 Globulin 3.0 Albumin/Globulin Ratio 1.2 - EKG Data EKG Interpreted by: Myself Assessment & Plan (1) Systolic dysfunction with acute on chronic heart failure Assessment and Plan: will need duiresis. will attempt to obtain company of [employer] for interrogation. Status: Acute (2) Chronic atrial fibrillation Assessment and Plan: recommend coumadin therapy Status: Acute (3) CAD (coronary artery disease) Assessment and Plan: unknown graft status. no evidence of ischemia at present Status: Acute (4) H/O mitral valve replacement with mechanical valve Assessment and Plan: needs anticoagulation. echocardiogram reviewed. valve leaflets are opening and functional. There is no signficant gradient across the valve. recommend INR 2.5 to 3.5. Needs heparin until anticoagulation therapeutic. Status: Acute
--- NOTE | 2017-01-07 07:59 | CP.PCM.PN ---
<Lenny Adam - Last Filed: 01/07/17 17:57> Subjective - Date & Time of Evaluation Date of Evaluation: 01/07/17 Time of Evaluation: 07:00 - Subjective Subjective: PGY1 Medicine Note- Dr Otoole Patient seen and examined at bedside. No overnight events per nursing. Patient with continued SOB while while speaking. Admits to chest tenderness at R sternal border at 2nd rib. OOB today, walked down hallway to complain about losing his iPOD. Patient initially refused heparin tx last night due to lost iPOD, but eventually accepted tx. However, patient refused all labs today due to lost iPOD. Will reattempt. Denies difficulty with ambulation or history of arrhythmia. Denies f/c, dizziness, palpitations, cough, abdominal pain, n/v, d/c , or any additional complaints. Objective - Vital Signs/Intake and Output Vital Signs (last 24 hours): Temp Pulse Resp BP Pulse Ox 97.5 F L 77 20 96/64 L 99 01/07/17 07:02 01/07/17 07:02 01/07/17 07:02 01/07/17 07:02 01/07/17 07:02 Intake and Output: 01/07/17 01/07/17 06:59 18:59 Intake Total 88 Output Total 700 Balance -700 88 - Medications Medications: Current Medications Digoxin (Lanoxin) 0.125 mg PO DAILY@1800 [facility] Last Admin: 01/06/17 20:16 Dose: 0.125 mg Furosemide (Lasix) 40 mg IVP BID [facility] Last Admin: 01/06/17 18:30 Dose: 40 mg Heparin Sodium/Sodium Chloride (Heparin 31272 Units/250ml 1/2 Normal Saline) 250 mls @ 11.323 mls/hr IV .Q22H5M PRN; Protocol; 12 UNITS/KG/HR PRN Reason: PROTOCOL Last Admin: 01/06/17 18:51 Dose: 11.323 mls/hr Lisinopril (Zestril) 10 mg PO DAILY [facility] Last Admin: 01/06/17 09:58 Dose: 10 mg Pantoprazole Sodium (Protonix Ec Tab) 40 mg PO DAILY [facility] Last Admin: 01/06/17 09:58 Dose: 40 mg Rosuvastatin Calcium (Crestor) 10 mg PO HS [facility] Last Admin: 01/06/17 22:24 Dose: Not Given Fluticasone/Salmeterol (Advair Diskus 100/50) 1 puff INH RQ12 [facility] Last Admin: 01/06/17 21:05 Dose: 1 puff Spironolactone (Aldactone) 25 mg PO DAILY [facility] Last Admin: 01/06/17 09:57 Dose: 25 mg Tiotropium [place] (Spiriva) 18 mcg INH RQ24 [facility] - Labs Labs: 01/06/17 07:06 01/06/17 07:06 PT 14.5 SECONDS (9.7-12.2) H 01/03/17 16:01 INR 1.3 01/03/17 16:01 APTT 33 SECONDS (21-34) 01/03/17 16:01 - Additional Findings Additional findings: - Constitutional Appears: Non-toxic, No Acute Distress - Head Exam Head Exam: ATRAUMATIC - Eye Exam Eye Exam: EOMI - ENT Exam ENT Exam: Mucous Membranes Moist - Respiratory Exam Respiratory Exam: Decreased Breath Sounds, Wheezes, Respiratory Distress (SOB while speaking). absent: Clear to Ausculation Bilateral - Cardiovascular Exam Cardiovascular Exam: REGULAR RHYTHM, +S1, +S2 - GI/Abdominal Exam GI & Abdominal Exam: Soft, Normal Bowel Sounds. absent: Tenderness - Extremities Exam Extremities Exam: Pedal Edema (b/l 1+ pitting to mid thigh). absent: Tenderness Additional comments: pedal pulses 2+ - Neurological Exam Neurological Exam: Alert, Awake, Oriented x3 - Psychiatric Exam Psychiatric exam: Normal Affect - Skin Skin Exam: Dry, Normal Color, Warm Tender to palpation at R sternal border, 2nd rib. Protrusion noted. Assessment and Plan - Assessment and Plan (Free Text) Assessment: 71 year old male with past medical history including [place], CAD with history of CABG and valve replacement 6-7 years ago. Reports worstenting SOB and dizziness with associated swelling of bilateral LE for past 2-3 days. Admits this is the first time he has experienced these symptoms. SOB is worse when he lays flat. Plan: Systolic dysfunction with acute on chronic heart failure Admit to telemetry, BNP 4560 on admission Consulted Cardiology, Dr. Arguelles - f/u recs -will need duiresis. will attempt to obtain company of [facility] for interrogation. Lasix 40mg IV BID Digoxin 0.125mg Lisinopril 10mg daily Aldactone 25mg PO Daily patient with AICD, will check echo to determine EF CXR 01/03: mild cardiomegaly, mild pulmonary venous congestion. s/p sternotomy, aortic valve replacement, AICD Chronic atrial fibrillation recommend coumadin therapy Status: Acute CAD (coronary artery disease) unknown graft status. no evidence of ischemia at present Status: Acute H/O mitral valve replacement with mechanical valve Cardiac valve replacement 6-7yrs ago Consulted Cardiology, Dr. Arguelles - f/u recs -echocardiogram reviewed. valve leaflets are opening and functional. There is no signficant gradient across the valve. -recommend INR 2.5 to 3.5. -Needs heparin until anticoagulation therapeutic. Coumadin 10mg STOP Heparin Drip - cardiac protocol, with bolus (because patient is refusing blood draws) START Lovenox 95mg SC Q12 f/u PT/INR History of CO (myocardial infarction) Crestor 10mg PO HS ROMIs negative x3 EKG paced Denies chest pain Shortness of Breath +wheezing Spiriva 18mcg INH RQ24 Advair Diskus 100/50 1puff INH RQ12 Electrolyte Imbalance Hyperkalemia - resolved Tachycardia EKG in ER: sinus tachycardia at 100, paced, incomplete RBBB Continue Digoxin 0.125mg Discontinued cardizem drip of 5mg/h started in the ER Lower extremity edema LE Duplex - negative. see full report. Prophylactic measure Stopped lovenox 40u sc daily protonix 40mg daily SCD contraindicated due to LE edema <Johnnie Otoole Jr. - Last Filed: 01/15/17 17:08> Objective - Vital Signs/Intake and Output Vital Signs (last 24 hours): Temp Pulse Resp BP Pulse Ox 97.6 F 89 20 104/66 100 01/15/17 16:57 01/15/17 16:57 01/15/17 16:57 01/15/17 16:57 01/15/17 16:57 Intake and Output: 01/15/17 01/15/17 06:59 18:59 Intake Total 300 480 Output Total 800 500 Balance -500 -20 - Medications Medications: Current Medications Albuterol/Ipratropium (Duoneb 3 Mg/0.5 Mg (3 Ml) Ud) 3 ml INH RQ6 [facility] Last Admin: 01/15/17 13:05 Dose: 3 ml Budesonide (Pulmicort Respules) 0.5 mg INH RQ12 [facility] Last Admin: 01/15/17 07:42 Dose: 0.5 mg Digoxin (Lanoxin) 0.125 mg PO DAILY@1800 [facility] Last Admin: 01/14/17 17:02 Dose: 0.125 mg Furosemide (Lasix) 40 mg IVP BID [facility] Last Admin: 01/15/17 09:15 Dose: 40 mg Guaifenesin (Mucinex [place]) 600 mg PO BID [facility] Last Admin: 01/15/17 10:11 Dose: 600 mg Lisinopril (Zestril) 10 mg PO DAILY [facility] Last Admin: 01/15/17 09:15 Dose: 10 mg Methylprednisolone (Solu-Medrol) 40 mg IVP Q8 [facility] Last Admin: 01/15/17 13:21 Dose: 40 mg Pantoprazole Sodium (Protonix Ec Tab) 40 mg PO DAILY [facility] Last Admin: 01/15/17 09:15 Dose: 40 mg Rosuvastatin Calcium (Crestor) 10 mg PO HS [facility] Last Admin: 01/14/17 21:04 Dose: 10 mg Spironolactone (Aldactone) 25 mg PO DAILY [facility] Last Admin: 01/15/17 09:15 Dose: 25 mg Tiotropium [place] (Spiriva) 18 mcg INH RQ24 [facility] Last Admin: 01/15/17 07:42 Dose: 18 mcg Warfarin Sodium (Coumadin) 5 mg PO 1800 [facility] Stop: 01/15/17 18:01 - Labs Labs: 01/15/17 11:10 01/15/17 11:10 PT 32.3 SECONDS (9.7-12.2) H* D 01/15/17 11:10 INR 2.8 D 01/15/17 11:10 APTT 31 SECONDS (21-34) D 01/15/17 11:10 Attending/Attestation - Attestation I have personally seen and examined this patient.: Yes I have fully participated in the care of the patient.: Yes I have reviewed all pertinent clinical information, including history, physical exam and plan: Yes Notes (Text): 01/15/17 17:08 Patient seen and examined with the resident. Reviewed resident note and agree with findings and plan of care. [ ]
[2017-01-07] MEDS: Tiotropium 18 mcg Cap For Inhalation INH SCH (08:50)
[2017-01-07] MEDS: Fluticasone-Salmeterol 100-50mcg Diskus INH SCH ×2 (08:50→20:13)
[2017-01-07] MEDS: Pantoprazole 40 mg EC Tab PO SCH (10:11)
--- NOTE | 2017-01-07 15:42 | CARD ---
APPROVED REPORT EKG Measurement Heart [id number] CO P88 [id number] <Conclusion> Electronic ventricular pacemaker
[2017-01-07] MEDS: Digoxin 125 mcg (0.125 mg) Tab PO SCH (17:25)
[2017-01-07 20:22] LABS: MEAN CELL VOLUME 81.9 fL (80.0-94.0); MEAN CORPUSCULAR HEMOGLOBIN 26.6 pg (27.0-31.0); MEAN CORPUSCULAR HGB CONC 32.5 g/dL (33.0-37.0); MEAN PLATELET VOLUME 8.6 fL (7.2-11.7); WHITE BLOOD COUNT 4.3 K/uL (4.8-10.8)
[2017-01-07 20:32] LABS: INR 1.3
[2017-01-07 20:39] LABS: CHLORIDE 95 mmol/L (98-107); SODIUM 136 mmol/L (132-148)
[2017-01-07 20:40] LABS: POTASSIUM 4.2 mmol/L (3.6-5.2)
[2017-01-07 20:42] LABS: ALB/GLOB RATIO 1.2 (1.0-2.1); ALKALINE PHOSPHATASE 84 U/L (38-126); ALT/SGPT 21 U/L (21-72); AST/SGOT 26 U/L (17-59); BILIRUBIN,TOTAL 0.6 mg/dL (0.2-1.3); BLOOD UREA NITROGEN 19 mg/dL (9-20); CARBON DIOXIDE 29 mmol/L (22-30); GFR AFRICAN-AMERICAN > 60; GLUCOSE,RANDOM 86 mg/dL (75-110); PHOSPHOROUS 3.8 mg/dL (2.5-4.5); TOTAL PROTEIN 6.6 g/dL (6.3-8.3)
[2017-01-07 20:43] LABS: CALCIUM 9.5 mg/dl (8.6-10.4); MAGNESIUM 1.9 mg/dL (1.6-2.3)
[2017-01-07] MEDS: Enoxaparin 100 mg Syringe SC SCH (21:47)
--- NOTE | 2017-01-08 07:42 | CP.PCM.PN ---
Subjective - Date & Time of Evaluation Date of Evaluation: 01/08/17 Time of Evaluation: 07:15 - Subjective Subjective: PGY1 Medicine Note- Dr Otoole Patient seen and examined at bedside. No overnight events per nursing. Patient with continued SOB while while speaking. Persistent chest tenderness at R sternal border at 2nd rib. Patient has refused treatment for the last 2 days due to his lost iPOD, he is fixated on this. He will sporadically accept treatment and labs. I spoke to him at length about his condition and the need to bring his INR to a therapeutic level. Denies difficulty with ambulation or history of arrhythmia. Denies f/c, dizziness, palpitations, cough, abdominal pain, n/v, d/c, or any additional complaints. Objective - Vital Signs/Intake and Output Vital Signs (last 24 hours): Temp Pulse Resp BP Pulse Ox 98.0 F 96 H 20 100/69 98 01/07/17 23:25 01/08/17 01:50 01/07/17 23:25 01/07/17 23:25 01/07/17 23:25 Intake and Output: 01/08/17 01/08/17 06:59 18:59 Output Total 300 Balance -300 - Medications Medications: Current Medications Digoxin (Lanoxin) 0.125 mg PO DAILY@1800 [facility] Last Admin: 01/07/17 17:25 Dose: 0.125 mg Enoxaparin Sodium (Lovenox) 95 mg SC Q12 [facility] Last Admin: 01/07/17 21:47 Dose: 95 mg Furosemide (Lasix) 40 mg IVP BID [facility] Last Admin: 01/07/17 17:25 Dose: 40 mg Lisinopril (Zestril) 10 mg PO DAILY [facility] Last Admin: 01/07/17 10:13 Dose: Not Given Pantoprazole Sodium (Protonix Ec Tab) 40 mg PO DAILY [facility] Last Admin: 01/07/17 10:11 Dose: 40 mg Rosuvastatin Calcium (Crestor) 10 mg PO HS [facility] Last Admin: 01/07/17 21:38 Dose: Not Given Fluticasone/Salmeterol (Advair Diskus 100/50) 1 puff INH RQ12 [facility] Last Admin: 01/07/17 20:13 Dose: 1 puff Spironolactone (Aldactone) 25 mg PO DAILY [facility] Last Admin: 01/07/17 11:02 Dose: 25 mg Tiotropium [place] (Spiriva) 18 mcg INH RQ24 [facility] Last Admin: 01/07/17 08:50 Dose: 18 mcg - Labs Labs: 01/07/17 20:11 01/07/17 20:11 PT 14.1 SECONDS (9.7-12.2) H 01/07/17 20:11 INR 1.3 01/07/17 20:11 APTT 29 SECONDS (21-34) 01/07/17 20:11 - Additional Findings Additional findings: - Constitutional Appears: Non-toxic, No Acute Distress - Head Exam Head Exam: ATRAUMATIC - Eye Exam Eye Exam: EOMI - ENT Exam ENT Exam: Mucous Membranes Moist - Respiratory Exam Respiratory Exam: Decreased Breath Sounds, Wheezes, Respiratory Distress (SOB while speaking). absent: Clear to Ausculation Bilateral - Cardiovascular Exam Cardiovascular Exam: REGULAR RHYTHM, +S1, +S2 - GI/Abdominal Exam GI & Abdominal Exam: Soft, Normal Bowel Sounds. absent: Tenderness - Extremities Exam Extremities Exam: Pedal Edema (b/l 1+ pitting to mid thigh). absent: Tenderness Additional comments: pedal pulses 2+ - Neurological Exam Neurological Exam: Alert, Awake, Oriented x3 - Psychiatric Exam Psychiatric exam: Normal Affect - Skin Skin Exam: Dry, Normal Color, Warm Tender to palpation at R sternal border, 2nd rib. Protrusion noted. Assessment and Plan - Assessment and Plan (Free Text) Assessment: 71 year old male with past medical history including [place], CAD with history of CABG and valve replacement 6-7 years ago. Reports worstenting SOB and dizziness with associated swelling of bilateral LE for past 2-3 days. Admits this is the first time he has experienced these symptoms. SOB is worse when he lays flat. Plan: Systolic dysfunction with acute on chronic heart failure Admit to telemetry, BNP 4560 on admission Consulted Cardiology, Dr. Arguelles - f/u recs -will need duiresis. will attempt to obtain company of AICD for interrogation. Lasix 40mg IV BID Digoxin 0.125mg Lisinopril 10mg daily Aldactone 25mg PO Daily patient with AICD, will check echo to determine EF CXR 01/03: mild cardiomegaly, mild pulmonary venous congestion. s/p sternotomy, aortic valve replacement, AICD Chronic atrial fibrillation recommend coumadin therapy Status: Acute CAD (coronary artery disease) unknown graft status. no evidence of ischemia at present Status: Acute H/O mitral valve replacement with mechanical valve Cardiac valve replacement 6-7yrs ago Consulted Cardiology, Dr. Arguelles - f/u recs -echocardiogram reviewed. valve leaflets are opening and functional. There is no signficant gradient across the valve. -recommend INR 2.5 to 3.5. -Needs heparin until anticoagulation therapeutic. Coumadin 10mg STOP Heparin Drip - cardiac protocol, with bolus (because patient is refusing blood draws) Lovenox 95mg SC Q12 3: PT/INR 1.3 3: PT/INR refused 01/09: f/u PT/INR History of UT (myocardial infarction) Crestor 10mg PO HS ROMIs negative x3 EKG paced Denies chest pain Shortness of Breath +wheezing Spiriva 18mcg INH RQ24 Advair Diskus 100/50 1puff INH RQ12 Electrolyte Imbalance Hyperkalemia - resolved Tachycardia EKG in ER: sinus tachycardia at 100, paced, incomplete RBBB Continue Digoxin 0.125mg Discontinued cardizem drip of 5mg/h started in the ER Lower extremity edema LE Duplex - negative. see full report. Prophylactic measure Stopped lovenox 40u sc daily (bridging lovenox 95u to Coumadin). protonix 40mg daily SCD contraindicated due to LE edema
--- NOTE | 2017-01-08 08:13 | CARD ---
APPROVED REPORT EXAM: Two-dimensional and M-mode echocardiogram with Doppler and color Doppler. Other Information Quality : GoodRhythm : INDICATION Cardiac Disease: CAD Congestive Heart Failure HX OF UT Surgery/Intervention Status/Post Mitral Valve Replacement: Mechanical Pacemaker: CABG: M-Mode DIMENSIONS RVDd2.89 (2.1-3.2cm)Left Atrium (MM)5.52 (2.5-4.0cm) IVSd1.65 (0.7-1.1cm)Aortic Root3.21 (2.2-3.7cm) LVDd7.25 (4.0-5.6cm)Aortic Cusp Exc.1.90 (1.5-2.0cm) PWd0.82 (0.7-1.1cm)FS (%) 6 % LVDs6.84 (2.0-3.8cm)LVEF (%)12 (>50%) Mitral Valve MV E Kfucvvrr254.4cm/sMV E Peak Gr.12mmHgMV A Lfptexui13.1cm/s MV E Mean Gr.4mmHgE/A ratio3.3 TDI E/Lateral E'0.0E/Medial E'0.0 Tricuspid Valve TR Peak Rcwlzkby882tr/sTR Peak Gr.94umRjSFFE66nmVc LEFT VENTRICLE The Left Ventricle is moderately dilated. There is normal left ventricular wall thickness. The ejection fraction is severely impaired. EF = 10-15% There is global hypokinesis of the left ventricle. Tissue Doppler imaging reveals abnormal left ventricular diastolic dysfunction. No left ventricle thrombus noted on this study. There is no ventricular septal defect visualized. There is no left ventricular aneurysm. There is no mass noted in the left ventricle. RIGHT VENTRICLE The right ventricle is borderline dilated. There is normal right ventricular wall thickness. RV Systolic function is moderately to severely reduced. DEVICE LEAD NOTED IN RV. ATRIA The left atrium is mildly dilated. The right atrium size is normal. The interatrial septum is intact with no evidence for an atrial septal defect. AORTIC VALVE The aortic valve is normal in structure. AV is trileaflet No aortic regurgitation is present. There is no aortic valvular stenosis. MITRAL VALVE Mechanical MV noted. The valve is well seated, no rocking or regurg. MV GRADIENT APPEARS NORMAL TRICUSPID VALVE The tricuspid valve is normal in structure. There is moderate ECCENTRIC tricuspid regurgitation. PAP is 50-60 mmHg rap IS 10-15 MMhG There is no tricuspid valve prolapse or vegetation. There is no tricuspid valve stenosis. PULMONIC VALVE The pulmonary valve is normal in structure. Mild PI GREAT VESSELS The aortic root is normal in size. PERICARDIAL EFFUSION There is no pericardial effusion. <Conclusion> EF = 10-15% The ejection fraction is severely impaired. There is global hypokinesis of the left ventricle. Tissue Doppler imaging reveals abnormal left ventricular diastolic dysfunction. RV Systolic function is moderately to severely reduced. DEVICE LEAD NOTED IN RV. The left atrium is mildly dilated. Mechanical MV noted. The valve is well seated, no rocking or regurg. MV GRADIENT APPEARS NORMAL There is moderate ECCENTRIC tricuspid regurgitation. PAP is 50-60 mmHg rap IS 10-15 MMhG Mild PI
[2017-01-08] MEDS: Fluticasone-Salmeterol 100-50mcg Diskus INH SCH (08:44)
[2017-01-08] MEDS: Tiotropium 18 mcg Cap For Inhalation INH SCH (08:45)
[2017-01-08] MEDS: Pantoprazole 40 mg EC Tab PO SCH (10:00)
[2017-01-08] MEDS: Enoxaparin 100 mg Syringe SC SCH ×2 (10:00→21:20)
--- NOTE | 2017-01-08 11:08 | CP.PCM.PN ---
Subjective - Date & Time of Evaluation Date of Evaluation: 01/08/17 Time of Evaluation: 09:30 - Subjective Subjective: patient is upset because of loss of his cell phone. Objective - Vital Signs/Intake and Output Vital Signs (last 24 hours): Temp Pulse Resp BP Pulse Ox 98.2 F 71 18 95/62 L 96 01/08/17 07:10 01/08/17 07:10 01/08/17 07:10 01/08/17 07:10 01/08/17 07:10 Intake and Output: 01/08/17 01/08/17 06:59 18:59 Output Total 300 Balance -300 - Medications Medications: Current Medications Digoxin (Lanoxin) 0.125 mg PO DAILY@1800 [facility] Last Admin: 01/07/17 17:25 Dose: 0.125 mg Enoxaparin Sodium (Lovenox) 95 mg SC Q12 [facility] Last Admin: 01/08/17 10:00 Dose: Not Given Furosemide (Lasix) 40 mg IVP BID [facility] Last Admin: 01/08/17 10:00 Dose: Not Given Lisinopril (Zestril) 10 mg PO DAILY [facility] Last Admin: 01/08/17 09:48 Dose: Not Given Pantoprazole Sodium (Protonix Ec Tab) 40 mg PO DAILY [facility] Last Admin: 01/08/17 10:00 Dose: Not Given Rosuvastatin Calcium (Crestor) 10 mg PO HS [facility] Last Admin: 01/07/17 21:38 Dose: Not Given Fluticasone/Salmeterol (Advair Diskus 100/50) 1 puff INH RQ12 [facility] Last Admin: 01/08/17 08:44 Dose: 1 puff Spironolactone (Aldactone) 25 mg PO DAILY [facility] Last Admin: 01/08/17 10:01 Dose: Not Given Tiotropium [place] (Spiriva) 18 mcg INH RQ24 [facility] Last Admin: 01/08/17 08:45 Dose: 18 mcg - Labs Labs: 01/07/17 20:11 01/07/17 20:11 PT 14.1 SECONDS (9.7-12.2) H 01/07/17 20:11 INR 1.3 01/07/17 20:11 APTT 29 SECONDS (21-34) 01/07/17 20:11 - Constitutional Appears: Non-toxic - Head Exam Head Exam: NORMAL INSPECTION - Eye Exam Eye Exam: Normal appearance - ENT Exam ENT Exam: Mucous Membranes Moist - Neck Exam Neck Exam: Full ROM - Respiratory Exam Respiratory Exam: Decreased Breath Sounds - Cardiovascular Exam Cardiovascular Exam: REGULAR RHYTHM - GI/Abdominal Exam GI & Abdominal Exam: Normal Bowel Sounds - Rectal Exam Rectal Exam: Deferred - Extremities Exam Extremities Exam: Normal Inspection - Back Exam Back Exam: NORMAL INSPECTION - Neurological Exam Neurological Exam: Alert - Psychiatric Exam Psychiatric exam: Normal Affect - Skin Skin Exam: Normal Color Assessment and Plan (1) Systolic dysfunction with acute on chronic heart failure Assessment & Plan: improved volume status Status: Acute (2) Chronic atrial fibrillation Assessment & Plan: needs anticoagulation Status: Acute (3) CAD (coronary artery disease) Status: Acute (4) H/O mitral valve replacement with mechanical valve Assessment & Plan: need coumadin for [place] INR 2.5-3.5 Status: Acute
[2017-01-08 12:07] LABS: BASO % 0.9 % (0.0-2.0); EOS # 0.1 K/uL (0.0-0.7); EOS % 2.7 % (0.0-4.0); HEMATOCRIT 36.2 % (35.0-51.0); LYMPH # 0.6 K/uL (1.0-4.3); LYMPH % 11.4 % (20.0-40.0); MEAN CELL VOLUME 82.7 fL (80.0-94.0); MEAN CORPUSCULAR HEMOGLOBIN 26.6 pg (27.0-31.0); MEAN CORPUSCULAR HGB CONC 32.2 g/dL (33.0-37.0); MEAN PLATELET VOLUME 8.9 fL (7.2-11.7); MONO # 0.7 K/uL (0.0-0.8); MONO % 14.5 % (0.0-10.0); NRBC % 0.2 % (0.0-2.0); RED CELL DISTRIBUTION WIDTH 19.6 % (11.5-14.5); WHITE BLOOD COUNT 4.9 K/uL (4.8-10.8)
[2017-01-08 12:27] LABS: CHLORIDE 96 mmol/L (98-107); SODIUM 139 mmol/L (132-148)
[2017-01-08 12:30] LABS: ALB/GLOB RATIO 1.2 (1.0-2.1); ALKALINE PHOSPHATASE 86 U/L (38-126); ALT/SGPT 19 U/L (21-72); AST/SGOT 28 U/L (17-59); BILIRUBIN,TOTAL 0.7 mg/dL (0.2-1.3); BLOOD UREA NITROGEN 18 mg/dL (9-20); CARBON DIOXIDE 32 mmol/L (22-30); GFR AFRICAN-AMERICAN > 60; GLUCOSE,RANDOM 88 mg/dL (75-110); TOTAL PROTEIN 7.1 g/dL (6.3-8.3)
[2017-01-08 12:31] LABS: CALCIUM 9.9 mg/dl (8.6-10.4); PHOSPHOROUS 3.3 mg/dL (2.5-4.5)
[2017-01-08] MEDS: Digoxin 125 mcg (0.125 mg) Tab PO SCH (17:55)
[2017-01-08] MEDS: Fluticasone-Salmeterol 250-50mcg Diskus INH SCH (20:47)
[2017-01-09 05:03] LABS: EOS # 0.2 K/uL (0.0-0.7); MONO # 0.6 K/uL (0.0-0.8); MONO % 11.9 % (0.0-10.0); NRBC % 0.1 % (0.0-2.0)
[2017-01-09 05:08] LABS: INR 1.5
[2017-01-09 05:10] LABS: CHLORIDE 96 mmol/L (98-107)
[2017-01-09 05:11] LABS: BASO % 0.8 % (0.0-2.0); EOS % 3.4 % (0.0-4.0); HEMATOCRIT 33.8 % (35.0-51.0); LYMPH # 0.8 K/uL (1.0-4.3); LYMPH % 14.9 % (20.0-40.0); MEAN CELL VOLUME 80.3 fL (80.0-94.0); MEAN CORPUSCULAR HEMOGLOBIN 27.6 pg (27.0-31.0); MEAN CORPUSCULAR HGB CONC 34.3 g/dL (33.0-37.0); MEAN PLATELET VOLUME 8.4 fL (7.2-11.7); POTASSIUM 4.2 mmol/L (3.6-5.2); RED CELL DISTRIBUTION WIDTH 19.2 % (11.5-14.5); SODIUM 139 mmol/L (132-148); WHITE BLOOD COUNT 5.1 K/uL (4.8-10.8)
[2017-01-09 05:13] LABS: ALB/GLOB RATIO 1.1 (1.0-2.1); ALKALINE PHOSPHATASE 82 U/L (38-126); AST/SGOT 29 U/L (17-59); BILIRUBIN,TOTAL 0.7 mg/dL (0.2-1.3); BLOOD UREA NITROGEN 23 mg/dL (9-20); CARBON DIOXIDE 30 mmol/L (22-30); GFR AFRICAN-AMERICAN > 60; PHOSPHOROUS 3.7 mg/dL (2.5-4.5)
[2017-01-09 05:14] LABS: ALT/SGPT 33 U/L (21-72); CALCIUM 9.7 mg/dl (8.6-10.4); GLUCOSE,RANDOM 86 mg/dL (75-110); PHOSPHOROUS 3.8 mg/dL (2.5-4.5)
--- NOTE | 2017-01-09 07:33 | CP.PCM.PN ---
<Lenny Adam - Last Filed: 01/09/17 19:38> Subjective - Date & Time of Evaluation Date of Evaluation: 01/09/17 Time of Evaluation: 07:05 - Subjective Subjective: PGY1 Medicine Note- Dr Otoole Patient seen and examined at bedside. No overnight events per nursing. Patient with continued SOB while while speaking and laying flat. Patient is more calm today about losing his phone and is being more compliant with his medication regimen. Denies difficulty with ambulation or history of arrhythmia. Denies f/c , dizziness, palpitations, cough, abdominal pain, n/v, d/c, or any additional complaints. Objective - Vital Signs/Intake and Output Vital Signs (last 24 hours): Temp Pulse Resp BP Pulse Ox 98 F 74 20 108/72 98 01/09/17 04:30 01/09/17 04:30 01/09/17 04:30 01/09/17 04:30 01/09/17 04:30 Intake and Output: 01/09/17 01/09/17 06:59 18:59 Intake Total 260 Output Total 300 Balance -40 - Medications Medications: Current Medications Digoxin (Lanoxin) 0.125 mg PO DAILY@1800 [facility] Last Admin: 01/08/17 17:55 Dose: 0.125 mg Enoxaparin Sodium (Lovenox) 95 mg SC Q12 [facility] Last Admin: 01/08/17 21:20 Dose: 95 mg Furosemide (Lasix) 40 mg IVP BID [facility] Last Admin: 01/08/17 17:55 Dose: 40 mg Lisinopril (Zestril) 10 mg PO DAILY [facility] Last Admin: 01/08/17 09:48 Dose: Not Given Pantoprazole Sodium (Protonix Ec Tab) 40 mg PO DAILY [facility] Last Admin: 01/08/17 10:00 Dose: Not Given Rosuvastatin Calcium (Crestor) 10 mg PO HS [facility] Last Admin: 01/08/17 21:20 Dose: 10 mg Fluticasone/Salmeterol (Advair Diskus 250/50) 1 puff INH RQ12 [facility] Last Admin: 01/08/17 20:47 Dose: 1 puff Spironolactone (Aldactone) 25 mg PO DAILY [facility] Last Admin: 01/08/17 10:01 Dose: Not Given Tiotropium [place] (Spiriva) 18 mcg INH RQ24 [facility] Last Admin: 01/08/17 08:45 Dose: 18 mcg - Labs Labs: 01/09/17 04:58 01/09/17 04:58 PT 16.7 SECONDS (9.7-12.2) H 01/09/17 04:58 INR 1.5 01/09/17 04:58 APTT 29 SECONDS (21-34) 01/07/17 20:11 - Additional Findings Additional findings: - Constitutional Appears: Non-toxic, No Acute Distress - Head Exam Head Exam: ATRAUMATIC - Eye Exam Eye Exam: EOMI - ENT Exam ENT Exam: Mucous Membranes Moist - Respiratory Exam Respiratory Exam: Decreased Breath Sounds, Wheezes, Respiratory Distress (SOB while speaking). absent: Clear to Ausculation Bilateral - Cardiovascular Exam Cardiovascular Exam: REGULAR RHYTHM, +S1, +S2 - GI/Abdominal Exam GI & Abdominal Exam: Soft, Normal Bowel Sounds. absent: Tenderness - Extremities Exam Extremities Exam: Pedal Edema (b/l 1+ pitting to mid thigh). absent: Tenderness Additional comments: pedal pulses 2+ - Neurological Exam Neurological Exam: Alert, Awake, Oriented x3 - Psychiatric Exam Psychiatric exam: Normal Affect - Skin Skin Exam: Dry, Normal Color, Warm Tender to palpation at R sternal border, 2nd rib. Protrusion noted. Assessment and Plan - Assessment and Plan (Free Text) Assessment: 71 year old male with past medical history including [place], CAD with history of CABG and valve replacement 6-7 years ago. Reports worstenting SOB and dizziness with associated swelling of bilateral LE for past 2-3 days. Admits this is the first time he has experienced these symptoms. SOB is worse when he lays flat. Likely D/C 01/10/17. Plan: Systolic dysfunction with acute on chronic heart failure Admit to telemetry, BNP 4560 on admission Consulted Cardiology, Dr. Arguelles - f/u recs -will need duiresis. will attempt to obtain company of AICD for interrogation. Lasix 40mg IV BID Digoxin 0.125mg Lisinopril 10mg daily Aldactone 25mg PO Daily patient with AICD, will check echo to determine EF CXR 01/03: mild cardiomegaly, mild pulmonary venous congestion. s/p sternotomy, aortic valve replacement, AICD H/O mitral valve replacement with mechanical valve Cardiac valve replacement 6-7yrs ago Consulted Cardiology, Dr. Arguelles - f/u recs -echocardiogram reviewed. valve leaflets are opening and functional. There is no signficant gradient across the valve. -recommend INR 2.5 to 3.5. Coumadin 10mg Lovenox 95mg SC Q12 STOP Heparin Drip - cardiac protocol, with bolus (because patient is refusing blood draws) 3: PT/INR 1.3 3: PT/INR refused, Coumadin 10mg 01/09: PT/INR 1.5, increasing, Coumadin 10mg 01/10: f/u PT / INR Chronic atrial fibrillation Consulted Cardiology, Dr. Arguelles - f/u recs -echocardiogram reviewed. valve leaflets are opening and functional. There is no signficant gradient across the valve. -recommend INR 2.5 to 3.5. Coumadin 10mg Lovenox 95mg SC Q12 COPD (chronic obstructive pulmonary disease) Consulted Pulmonology, Dr. Cobb for persistent shortness of breath -Patient with long history of smoking most likely has underlying COPD. Nebulizer treatment. Inhaled steroids. Spiriva. pulmonary function test as out pt CAD (coronary artery disease) unknown graft status. no evidence of ischemia at present History of [place] (myocardial infarction) Crestor 10mg PO HS ROMIs negative x3 EKG paced Denies chest pain Electrolyte Imbalance Hyperkalemia - resolved Tachycardia EKG in ER: sinus tachycardia at 100, paced, incomplete RBBB Continue Digoxin 0.125mg Discontinued cardizem drip of 5mg/h started in the ER Lower extremity edema LE Duplex - negative. see full report. Prophylactic measure Stopped lovenox 40u sc daily (bridging lovenox 95u to Coumadin). protonix 40mg daily SCD contraindicated due to LE edema <Johnnie Otoole Jr. - Last Filed: 01/15/17 17:13> Objective - Vital Signs/Intake and Output Vital Signs (last 24 hours): Temp Pulse Resp BP Pulse Ox 97.6 F 89 20 104/66 100 01/15/17 16:57 01/15/17 16:57 01/15/17 16:57 01/15/17 16:57 01/15/17 16:57 Intake and Output: 01/15/17 01/15/17 06:59 18:59 Intake Total 300 480 Output Total 800 500 Balance -500 -20 - Medications Medications: Current Medications Albuterol/Ipratropium (Duoneb 3 Mg/0.5 Mg (3 Ml) Ud) 3 ml INH RQ6 [facility] Last Admin: 01/15/17 13:05 Dose: 3 ml Budesonide (Pulmicort Respules) 0.5 mg INH RQ12 [facility] Last Admin: 01/15/17 07:42 Dose: 0.5 mg Digoxin (Lanoxin) 0.125 mg PO DAILY@1800 [facility] Last Admin: 01/14/17 17:02 Dose: 0.125 mg Furosemide (Lasix) 40 mg IVP BID [facility] Last Admin: 01/15/17 09:15 Dose: 40 mg Guaifenesin (Mucinex [place]) 600 mg PO BID [facility] Last Admin: 01/15/17 10:11 Dose: 600 mg Lisinopril (Zestril) 10 mg PO DAILY [facility] Last Admin: 01/15/17 09:15 Dose: 10 mg Methylprednisolone (Solu-Medrol) 40 mg IVP Q8 [facility] Last Admin: 01/15/17 13:21 Dose: 40 mg Pantoprazole Sodium (Protonix Ec Tab) 40 mg PO DAILY [facility] Last Admin: 01/15/17 09:15 Dose: 40 mg Rosuvastatin Calcium (Crestor) 10 mg PO HS [facility] Last Admin: 01/14/17 21:04 Dose: 10 mg Spironolactone (Aldactone) 25 mg PO DAILY [facility] Last Admin: 01/15/17 09:15 Dose: 25 mg Tiotropium [place] (Spiriva) 18 mcg INH RQ24 [facility] Last Admin: 01/15/17 07:42 Dose: 18 mcg Warfarin Sodium (Coumadin) 5 mg PO 1800 [facility] Stop: 01/15/17 18:01 - Labs Labs: 01/15/17 11:10 01/15/17 11:10 PT 32.3 SECONDS (9.7-12.2) H* D 01/15/17 11:10 INR 2.8 D 01/15/17 11:10 APTT 31 SECONDS (21-34) D 01/15/17 11:10 Attending/Attestation - Attestation I have personally seen and examined this patient.: Yes I have fully participated in the care of the patient.: Yes I have reviewed all pertinent clinical information, including history, physical exam and plan: Yes Notes (Text): 01/15/17 17:13 Patient seen and examined with the resident. Reviewed resident note and agree with findings and plan of care. [ ]
[2017-01-09] MEDS: Fluticasone-Salmeterol 250-50mcg Diskus INH SCH (08:20)
[2017-01-09] MEDS: Tiotropium 18 mcg Cap For Inhalation INH SCH (08:20)
[2017-01-09] MEDS: Pantoprazole 40 mg EC Tab PO SCH (09:37)
[2017-01-09] MEDS: Enoxaparin 100 mg Syringe SC SCH ×3 (09:39→21:34)
--- NOTE | 2017-01-09 11:28 | CP.PCM.CON ---
History of Present Illness - History of Present Illness History of Present Illness: Patient is a 71 y/o male with a history of CHF, ID, CAD, CABG, and AFib. Patient was complaining of SOB and swelling in his legs upon admission on 01/03, and has since been treated for CHF exacerbation. EchoCardio Gram indicated a low Ejection Fraction, as well as hypokinesis of the Left Ventricular wall. Dopper studies demonstrated to signs of DVT. Patient states that his SOB is till worsening, expecially when laying down. Patient denies coughing or wheezing. Auscultation revealed crackles in all quadrants. Patient is a current smoker and lives in his car. Review of Systems - Review of Systems All systems: reviewed and no additional remarkable complaints except - Constitutional Constitutional: Weakness - Cardiovascular Cardiovascular: Palpitations - Respiratory Respiratory: As Per HPI Past Patient History - Infectious Disease Hx of Infectious Diseases: None - Past Medical History & Family History Past Medical History?: Yes - Past Social History Smoking Status: Light Smoker < 10 Cigarettes Daily - CARDIAC Hx Cardiac Disorders: (A-fib) Hx Congestive Heart Failure: Yes Hx Hypertension: Yes - PULMONARY Hx Chronic Obstructive Pulmonary Disease (COPD): Yes - MUSCULOSKELETAL/RHEUMATOLOGICAL Hx Falls: No - PSYCHIATRIC Hx Substance Use: No - SURGICAL HISTORY Hx Coronary Artery Bypass Graft: Yes (4 yrs ago) - ANESTHESIA Hx Anesthesia: Yes Hx Anesthesia Reactions: No Hx Malignant Hyperthermia: No Meds Allergies/Adverse Reactions: Allergies Allergy/AdvReac Type Severity Reaction Status Date / Time No Known Allergies Allergy Verified 01/03/17 12:47 - Medications Medications: Current Medications Digoxin (Lanoxin) 0.125 mg PO DAILY@1800 [facility] Last Admin: 01/08/17 17:55 Dose: 0.125 mg Enoxaparin Sodium (Lovenox) 95 mg SC Q12 [facility] Last Admin: 01/09/17 09:46 Dose: Not Given Furosemide (Lasix) 40 mg IVP BID [facility] Last Admin: 01/08/17 17:55 Dose: 40 mg Lisinopril (Zestril) 10 mg PO DAILY [facility] Last Admin: 01/09/17 09:42 Dose: Not Given Pantoprazole Sodium (Protonix Ec Tab) 40 mg PO DAILY [facility] Last Admin: 01/09/17 09:37 Dose: 40 mg Rosuvastatin Calcium (Crestor) 10 mg PO HS [facility] Last Admin: 01/08/17 21:20 Dose: 10 mg Fluticasone/Salmeterol (Advair Diskus 250/50) 1 puff INH RQ12 [facility] Last Admin: 01/09/17 08:20 Dose: 1 puff Spironolactone (Aldactone) 25 mg PO DAILY [facility] Last Admin: 01/09/17 09:44 Dose: Not Given Tiotropium [place] (Spiriva) 18 mcg INH RQ24 [facility] Last Admin: 01/09/17 08:20 Dose: 18 mcg Physical Exam - Constitutional Appears: Unkempt - Head Exam Head Exam: NORMAL INSPECTION - Eye Exam Eye Exam: Normal appearance - ENT Exam ENT Exam: Mucous Membranes Moist - Respiratory Exam Respiratory Exam: Rales - Cardiovascular Exam Cardiovascular Exam: Irregular Rhythm, +S1, +S2 - Neurological Exam Neurological exam: Alert, Oriented x3 - Psychiatric Exam Psychiatric exam: Normal Affect, Normal Mood - Skin Skin Exam: Normal Color Results - Vital Signs Recent Vital Signs: Last Vital Signs Temp 97.4 F L 01/09/17 07:45 Pulse 83 01/09/17 07:45 Resp 18 01/09/17 07:45 BP 100/65 01/09/17 07:45 Pulse Ox 100 01/09/17 07:45 - Labs Result Diagrams: 01/09/17 04:58 01/09/17 04:58 Labs: Laboratory Results - last 24 hr 01/08/17 01/09/17 11:45 04:58 WBC 4.9 5.1 RBC 4.37 L 4.21 L Hgb 11.6 L 11.6 L Hct 36.2 33.8 L MCV 82.7 80.3 D MCH 26.6 L 27.6 MCHC 32.2 L 34.3 RDW 19.6 H 19.2 H Plt Count 175 145 MPV 8.9 8.4 Neut % (Auto) 70.5 69.0 Lymph % (Auto) 11.4 L 14.9 L Baxter % (Auto) 14.5 H 11.9 H Eos % (Auto) 2.7 3.4 Baso % (Auto) 0.9 0.8 Neut # 3.4 3.5 Lymph # 0.6 L 0.8 L Baxter # 0.7 0.6 Eos # 0.1 0.2 Baso # 0.0 0.0 PT 16.7 H INR 1.5 Sodium 139 139 Potassium 5.0 4.2 Chloride 96 L 96 L Carbon Dioxide 32 H 30 Anion Gap 16 17 BUN 18 23 H Creatinine 1.1 1.3 Est GFR ( Amer) > 60 > 60 Est GFR (Non-Af Amer) > 60 54 Random Glucose 88 86 Calcium 9.9 9.7 Phosphorus 3.3 3.7 Magnesium 2.0 2.0 Total Bilirubin 0.7 0.7 AST 28 29 ALT 19 L 33 Alkaline Phosphatase 86 82 Total Creatine Kinase 43 L CK-MB (Mass) 1.08 Troponin I, Quant < 0.0120 Total Protein 7.1 7.0 Albumin 3.9 3.6 Globulin 3.2 3.4 Albumin/Globulin Ratio 1.2 1.1 Assessment & Plan (1) COPD (chronic obstructive pulmonary disease) Status: Acute Comment: Patient with long history of smoking most likely has underlying COPD. Nebulizer treatment. Inhaled steroids. Spiriva. pulmonary function test as out pt (2) Acute exacerbation of CHF (congestive heart failure) Assessment and Plan: Continue diuresis regiment to decrease fluid load supplemental oxygen Nebulizer treatment as needed follow up with results of echocardiogram to asses EF and wall motility Status: Acute (3) Chronic atrial fibrillation Status: Acute
[2017-01-09] MEDS: Digoxin 125 mcg (0.125 mg) Tab PO SCH (18:25)
[2017-01-09] MEDS: Albuterol-Ipratrop 3 mg / 0.5 (3 ml) UD INH SCH (19:54)
[2017-01-09] MEDS: Budesonide 0.5 mg/2 ml Inhal Susp UD INH SCH (19:56)
[2017-01-10] MEDS: Albuterol-Ipratrop 3 mg / 0.5 (3 ml) UD INH SCH ×4 (04:00→20:41)
[2017-01-10] MEDS: Tiotropium 18 mcg Cap For Inhalation INH SCH (08:12)
[2017-01-10] MEDS: Budesonide 0.5 mg/2 ml Inhal Susp UD INH SCH ×2 (08:12→20:43)
[2017-01-10] MEDS: Enoxaparin 100 mg Syringe SC SCH ×2 (09:19→23:03)
[2017-01-10] MEDS: Pantoprazole 40 mg EC Tab PO SCH (09:20)
[2017-01-10 12:03] LABS: BASO % 0.9 % (0.0-2.0); EOS # 0.1 K/uL (0.0-0.7); EOS % 2.7 % (0.0-4.0); LYMPH # 0.7 K/uL (1.0-4.3); LYMPH % 13.4 % (20.0-40.0); MEAN CELL VOLUME 81.6 fL (80.0-94.0); MEAN CORPUSCULAR HEMOGLOBIN 26.3 pg (27.0-31.0); MEAN CORPUSCULAR HGB CONC 32.2 g/dL (33.0-37.0); MEAN PLATELET VOLUME 8.5 fL (7.2-11.7); MONO # 0.6 K/uL (0.0-0.8); MONO % 11.9 % (0.0-10.0); RED CELL DISTRIBUTION WIDTH 19.7 % (11.5-14.5); WHITE BLOOD COUNT 4.8 K/uL (4.8-10.8)
[2017-01-10 12:11] LABS: CHLORIDE 94 mmol/L (98-107); POTASSIUM 4.1 mmol/L (3.6-5.2); SODIUM 138 mmol/L (132-148)
[2017-01-10 12:13] LABS: ALB/GLOB RATIO 1.2 (1.0-2.1); ALKALINE PHOSPHATASE 84 U/L (38-126); ALT/SGPT 28 U/L (21-72); AST/SGOT 26 U/L (17-59); BILIRUBIN,TOTAL 0.5 mg/dL (0.2-1.3); BLOOD UREA NITROGEN 23 mg/dL (9-20); CARBON DIOXIDE 30 mmol/L (22-30); GFR AFRICAN-AMERICAN > 60; TOTAL PROTEIN 7.6 g/dL (6.3-8.3)
[2017-01-10 12:14] LABS: CALCIUM 9.6 mg/dl (8.6-10.4); GLUCOSE,RANDOM 87 mg/dL (75-110); MAGNESIUM 1.9 mg/dL (1.6-2.3); PHOSPHOROUS 3.4 mg/dL (2.5-4.5)
--- NOTE | 2017-01-10 12:35 | CP.PCM.PN ---
Subjective - Date & Time of Evaluation Date of Evaluation: 01/10/17 Time of Evaluation: 12:25 - Subjective Subjective: patient denies chest pain. less cough. Objective - Vital Signs/Intake and Output Vital Signs (last 24 hours): Temp Pulse Resp BP Pulse Ox 97.3 F L 71 20 110/70 97 01/10/17 08:14 01/10/17 08:14 01/10/17 08:14 01/10/17 09:19 01/10/17 08:14 Intake and Output: 01/10/17 01/10/17 06:59 18:59 Intake Total 210 Balance 210 - Medications Medications: Current Medications Albuterol/Ipratropium (Duoneb 3 Mg/0.5 Mg (3 Ml) Ud) 3 ml INH RQ6 [facility] Last Admin: 01/10/17 08:12 Dose: 3 ml Budesonide (Pulmicort Respules) 0.5 mg INH RQ12 [facility] Last Admin: 01/10/17 08:12 Dose: 0.5 mg Digoxin (Lanoxin) 0.125 mg PO DAILY@1800 [facility] Last Admin: 01/09/17 18:25 Dose: 0.125 mg Enoxaparin Sodium (Lovenox) 95 mg SC Q12 [facility] Last Admin: 01/10/17 09:19 Dose: 95 mg Furosemide (Lasix) 40 mg IVP BID [facility] Last Admin: 01/10/17 09:19 Dose: 40 mg Lisinopril (Zestril) 10 mg PO DAILY [facility] Last Admin: 01/10/17 09:20 Dose: 10 mg Pantoprazole Sodium (Protonix Ec Tab) 40 mg PO DAILY [facility] Last Admin: 01/10/17 09:20 Dose: 40 mg Rosuvastatin Calcium (Crestor) 10 mg PO HS [facility] Last Admin: 01/09/17 21:34 Dose: 10 mg Spironolactone (Aldactone) 25 mg PO DAILY [facility] Last Admin: 01/10/17 09:20 Dose: 25 mg Tiotropium [place] (Spiriva) 18 mcg INH RQ24 [facility] Last Admin: 01/10/17 08:12 Dose: 18 mcg - Labs Labs: 01/10/17 11:55 01/10/17 11:55 PT 16.7 SECONDS (9.7-12.2) H 01/09/17 04:58 INR 1.5 01/09/17 04:58 APTT 29 SECONDS (21-34) 01/07/17 20:11 - Constitutional Appears: Non-toxic - Head Exam Head Exam: NORMAL INSPECTION - Eye Exam Eye Exam: Normal appearance - ENT Exam ENT Exam: Mucous Membranes Moist - Neck Exam Neck Exam: Full ROM - Respiratory Exam Respiratory Exam: Decreased Breath Sounds - Cardiovascular Exam Cardiovascular Exam: Irregular Rhythm Additional comments: mechanical first heart sound - GI/Abdominal Exam GI & Abdominal Exam: Normal Bowel Sounds - Rectal Exam Rectal Exam: Deferred - Extremities Exam Extremities Exam: Pedal Edema - Back Exam Back Exam: NORMAL INSPECTION - Neurological Exam Neurological Exam: Alert - Psychiatric Exam Psychiatric exam: Normal Affect - Skin Skin Exam: Normal Color Assessment and Plan (1) Systolic dysfunction with acute on chronic heart failure Assessment & Plan: improving volume status Status: Acute (2) Chronic atrial fibrillation Assessment & Plan: rate controlled. recommend coumadin. Status: Acute (3) CAD (coronary artery disease) Assessment & Plan: no current angina Status: Acute (4) H/O mitral valve replacement with mechanical valve Assessment & Plan: needs INR to be therapeutic (2.5-3.5) prior to discharge. Status: Acute
--- NOTE | 2017-01-10 15:29 | CP.PCM.PN ---
<Lenny Adam - Last Filed: 01/10/17 15:37> Subjective - Date & Time of Evaluation Date of Evaluation: 01/10/17 Time of Evaluation: 08:00 - Subjective Subjective: PGY1 Medicine Note- Dr Otoole Patient seen and examined at bedside. No overnight events per nursing. Patient with continued SOB while while speaking and laying flat. Volume status is improving. Patient reports 2 hours worth of chest pressure + numbness/tingling in his b/l hands this afternoon with, no radiation. Heart rate was normal. Will re-evaluate, Dr. Otoole and Dr. Arguelles aware. Denies difficulty with ambulation or history of arrhythmia. Denies f/c, dizziness, palpitations, cough, abdominal pain, n/v, d/c, or any additional complaints. Objective - Vital Signs/Intake and Output Vital Signs (last 24 hours): Temp Pulse Resp BP Pulse Ox 97.3 F L 80 20 95/58 L 98 01/10/17 08:14 01/10/17 14:45 01/10/17 14:45 01/10/17 14:45 01/10/17 14:45 Intake and Output: 01/10/17 01/10/17 06:59 18:59 Intake Total 210 400 Output Total 800 Balance 210 -400 - Medications Medications: Current Medications Albuterol/Ipratropium (Duoneb 3 Mg/0.5 Mg (3 Ml) Ud) 3 ml INH RQ6 [facility] Last Admin: 01/10/17 13:39 Dose: 3 ml Budesonide (Pulmicort Respules) 0.5 mg INH RQ12 [facility] Last Admin: 01/10/17 08:12 Dose: 0.5 mg Digoxin (Lanoxin) 0.125 mg PO DAILY@1800 [facility] Last Admin: 01/09/17 18:25 Dose: 0.125 mg Enoxaparin Sodium (Lovenox) 95 mg SC Q12 [facility] Last Admin: 01/10/17 09:19 Dose: 95 mg Furosemide (Lasix) 40 mg IVP BID [facility] Last Admin: 01/10/17 09:19 Dose: 40 mg Lisinopril (Zestril) 10 mg PO DAILY [facility] Last Admin: 01/10/17 09:20 Dose: 10 mg Pantoprazole Sodium (Protonix Ec Tab) 40 mg PO DAILY [facility] Last Admin: 01/10/17 09:20 Dose: 40 mg Rosuvastatin Calcium (Crestor) 10 mg PO HS [facility] Last Admin: 01/09/17 21:34 Dose: 10 mg Spironolactone (Aldactone) 25 mg PO DAILY [facility] Last Admin: 01/10/17 09:20 Dose: 25 mg Tiotropium [place] (Spiriva) 18 mcg INH RQ24 [facility] Last Admin: 01/10/17 08:12 Dose: 18 mcg - Labs Labs: 01/10/17 11:55 01/10/17 11:55 PT 22.4 SECONDS (9.7-12.2) H D 01/10/17 11:55 INR 2.0 D 01/10/17 11:55 APTT 43 SECONDS (21-34) H D 01/10/17 11:55 - Additional Findings Additional findings: - Constitutional Appears: Non-toxic, No Acute Distress - Head Exam Head Exam: ATRAUMATIC - Eye Exam Eye Exam: EOMI - ENT Exam ENT Exam: Mucous Membranes Moist - Respiratory Exam Respiratory Exam: Decreased Breath Sounds, Wheezes, Respiratory Distress (SOB while speaking). absent: Clear to Ausculation Bilateral - Cardiovascular Exam Cardiovascular Exam: REGULAR RHYTHM, +S1, +S2 - GI/Abdominal Exam GI & Abdominal Exam: Soft, Normal Bowel Sounds. absent: Tenderness - Extremities Exam Extremities Exam: Pedal Edema (b/l 1+ pitting to mid thigh). absent: Tenderness Additional comments: pedal pulses 2+ - Neurological Exam Neurological Exam: Alert, Awake, Oriented x3 b/l hand numbness / tingling today - Psychiatric Exam Psychiatric exam: Normal Affect - Skin Skin Exam: Dry, Normal Color, Warm Tender to palpation at R sternal border, 2nd rib. Protrusion noted. Assessment and Plan - Assessment and Plan (Free Text) Assessment: 71 year old male with past medical history including IA, CAD with history of CABG and valve replacement 6-7 years ago. Reports worstenting SOB and dizziness with associated swelling of bilateral LE for past 2-3 days. Admits this is the first time he has experienced these symptoms. SOB is worse when he lays flat. -Discharge planning once INR in 2.5-3.5 range Plan: Systolic dysfunction with acute on chronic heart failure Admit to telemetry, BNP 4560 on admission Consulted Cardiology, Dr. Arguelles - f/u recs -will need duiresis. will attempt to obtain company of AICD for interrogation. -Improving Volume status Lasix 40mg IV BID Digoxin 0.125mg Lisinopril 10mg daily Aldactone 25mg PO Daily patient with AICD, will check echo to determine EF CXR 01/03: mild cardiomegaly, mild pulmonary venous congestion. s/p sternotomy, aortic valve replacement, AICD H/O mitral valve replacement with mechanical valve Cardiac valve replacement 6-7yrs ago Consulted Cardiology, Dr. Blane Walker f/u recs -echocardiogram reviewed. valve leaflets are opening and functional. There is no signficant gradient across the valve. -recommend INR 2.5 to 3.5. STOP Lovenox 95mg SC Q12 (last dose 01/10/17) STOP Heparin Drip - cardiac protocol, with bolus (because patient is refusing blood draws) 01/07: PT/INR 1.3 01/08: PT/INR refused, Coumadin 10mg 01/09: PT/INR 1.5, Coumadin 10mg 01/10: PT/INR 2.0, Coumadin 10mg Chronic atrial fibrillation Consulted Cardiology, Dr. Blane Walker f/u recs -Rate controlled -echocardiogram reviewed. valve leaflets are opening and functional. There is no signficant gradient across the valve. -recommend INR 2.5 to 3.5. -See PT/INR trends above. Coumadin 10mg STOP Lovenox 95mg SC Q12 (last dose 01/10/17) COPD (chronic obstructive pulmonary disease) Consulted Pulmonology, Dr. Cobb for persistent shortness of breath -Patient with long history of smoking most likely has underlying COPD. Nebulizer treatment. Inhaled steroids. Spiriva. pulmonary function test as out pt CAD (coronary artery disease) Consulted Cardiology, Dr. Blane Walker f/u recs -unknown graft status. no evidence of ischemia at present -No current angina History of IA (myocardial infarction) Crestor 10mg PO HS ROMIs negative x3 EKG paced Denies chest pain Electrolyte Imbalance Hyperkalemia - resolved Tachycardia EKG in ER: sinus tachycardia at 100, paced, incomplete RBBB Continue Digoxin 0.125mg Discontinued cardizem drip of 5mg/h started in the ER Lower extremity edema LE Duplex - negative. see full report. Prophylactic measure Stopped lovenox 40u sc daily (bridging lovenox 95u to Coumadin). protonix 40mg daily SCD contraindicated due to LE edema [All management as per Dr. Otoole] <Johnnie Otoole Jr. - Last Filed: 01/15/17 17:14> Objective - Vital Signs/Intake and Output Vital Signs (last 24 hours): Temp Pulse Resp BP Pulse Ox 97.6 F 89 20 104/66 100 01/15/17 16:57 01/15/17 16:57 01/15/17 16:57 01/15/17 16:57 01/15/17 16:57 Intake and Output: 01/15/17 01/15/17 06:59 18:59 Intake Total 300 480 Output Total 800 500 Balance -500 -20 - Medications Medications: Current Medications Albuterol/Ipratropium (Duoneb 3 Mg/0.5 Mg (3 Ml) Ud) 3 ml INH RQ6 [facility] Last Admin: 01/15/17 13:05 Dose: 3 ml Budesonide (Pulmicort Respules) 0.5 mg INH RQ12 [facility] Last Admin: 01/15/17 07:42 Dose: 0.5 mg Digoxin (Lanoxin) 0.125 mg PO DAILY@1800 [facility] Last Admin: 01/14/17 17:02 Dose: 0.125 mg Furosemide (Lasix) 40 mg IVP BID [facility] Last Admin: 01/15/17 09:15 Dose: 40 mg Guaifenesin (Mucinex La) 600 mg PO BID [facility] Last Admin: 01/15/17 10:11 Dose: 600 mg Lisinopril (Zestril) 10 mg PO DAILY [facility] Last Admin: 01/15/17 09:15 Dose: 10 mg Methylprednisolone (Solu-Medrol) 40 mg IVP Q8 [facility] Last Admin: 01/15/17 13:21 Dose: 40 mg Pantoprazole Sodium (Protonix Ec Tab) 40 mg PO DAILY [facility] Last Admin: 01/15/17 09:15 Dose: 40 mg Rosuvastatin Calcium (Crestor) 10 mg PO HS [facility] Last Admin: 01/14/17 21:04 Dose: 10 mg Spironolactone (Aldactone) 25 mg PO DAILY [facility] Last Admin: 01/15/17 09:15 Dose: 25 mg Tiotropium [place] (Spiriva) 18 mcg INH RQ24 [facility] Last Admin: 03/09/17 07:42 Dose: 18 mcg Warfarin Sodium (Coumadin) 5 mg PO 1800 [facility] Stop: 01/15/17 18:01 - Labs Labs: 01/15/17 11:10 01/15/17 11:10 PT 32.3 SECONDS (9.7-12.2) H* D 01/15/17 11:10 INR 2.8 D 01/15/17 11:10 APTT 31 SECONDS (21-34) D 01/15/17 11:10 Attending/Attestation - Attestation I have personally seen and examined this patient.: Yes I have fully participated in the care of the patient.: Yes I have reviewed all pertinent clinical information, including history, physical exam and plan: Yes Notes (Text): 01/15/17 17:14 Patient seen and examined with the resident. Reviewed resident note and agree with findings and plan of care. [ ]
[2017-01-10] MEDS: Digoxin 125 mcg (0.125 mg) Tab PO SCH (18:15)
[2017-01-11] MEDS: Albuterol-Ipratrop 3 mg / 0.5 (3 ml) UD INH SCH ×4 (01:17→20:17)
[2017-01-11] MEDS: Tiotropium 18 mcg Cap For Inhalation INH SCH (07:39)
[2017-01-11] MEDS: Budesonide 0.5 mg/2 ml Inhal Susp UD INH SCH ×2 (07:39→20:18)
[2017-01-11] MEDS ORDERED: Enoxaparin 100 mg Syringe SC SCH (10:00)
--- NOTE | 2017-01-11 10:27 | CP.PCM.PN ---
<Lenny Adam - Last Filed: 01/11/17 19:07> Subjective - Date & Time of Evaluation Date of Evaluation: 01/11/17 Time of Evaluation: 07:05 - Subjective Subjective: PGY1 Medicine Note- Dr Otoole Patient seen and examined at bedside. No overnight events per nursing. Patient with less SOB while speaking today, however still c/o SOB. Will have PT walk patient without oxygen to monitor for de-saturation. Denies difficulty with ambulation or history of arrhythmia. Denies f/c, dizziness, palpitations, cough , abdominal pain, n/v, d/c, or any additional complaints. Objective - Vital Signs/Intake and Output Vital Signs (last 24 hours): Temp Pulse Resp BP Pulse Ox 98.1 F 72 20 99/61 L 98 01/11/17 07:39 01/11/17 09:00 01/11/17 07:39 01/11/17 07:39 01/11/17 07:39 - Medications Medications: Current Medications Albuterol/Ipratropium (Duoneb 3 Mg/0.5 Mg (3 Ml) Ud) 3 ml INH RQ6 [facility] Last Admin: 01/11/17 07:39 Dose: 3 ml Budesonide (Pulmicort Respules) 0.5 mg INH RQ12 [facility] Last Admin: 01/11/17 07:39 Dose: 0.5 mg Digoxin (Lanoxin) 0.125 mg PO DAILY@1800 [facility] Last Admin: 01/10/17 18:15 Dose: 0.125 mg Enoxaparin Sodium (Lovenox) 80 mg SC Q12 [facility] Furosemide (Lasix) 40 mg IVP BID [facility] Last Admin: 01/10/17 18:28 Dose: Not Given Lisinopril (Zestril) 10 mg PO DAILY [facility] Last Admin: 01/10/17 09:20 Dose: 10 mg Pantoprazole Sodium (Protonix Ec Tab) 40 mg PO DAILY [facility] Last Admin: 01/10/17 09:20 Dose: 40 mg Rosuvastatin Calcium (Crestor) 10 mg PO HS [facility] Last Admin: 01/10/17 23:03 Dose: Not Given Spironolactone (Aldactone) 25 mg PO DAILY [facility] Last Admin: 01/10/17 09:20 Dose: 25 mg Tiotropium [place] (Spiriva) 18 mcg INH RQ24 [facility] Last Admin: 01/11/17 07:39 Dose: 18 mcg - Labs Labs: 01/10/17 11:55 01/10/17 11:55 PT 22.4 SECONDS (9.7-12.2) H D 01/10/17 11:55 INR 2.0 D 01/10/17 11:55 APTT 43 SECONDS (21-34) H D 01/10/17 11:55 - Additional Findings Additional findings: - Constitutional Appears: Non-toxic, No Acute Distress - Head Exam Head Exam: ATRAUMATIC - Eye Exam Eye Exam: EOMI - ENT Exam ENT Exam: Mucous Membranes Moist - Respiratory Exam Respiratory Exam: Decreased Breath Sounds, Wheezes, Rhonchi, Respiratory Distress (SOB while speaking, improving). absent: Clear to Ausculation Bilateral -reports SOB, however does not always wear NC when it is near, and often removes it. - Cardiovascular Exam Cardiovascular Exam: REGULAR RHYTHM, +S1, +S2 - GI/Abdominal Exam GI & Abdominal Exam: Soft, Normal Bowel Sounds. absent: Tenderness - Extremities Exam Extremities Exam: Pedal Edema (b/l 1+ pitting to mid thigh). absent: Tenderness Additional comments: pedal pulses 2+ - Neurological Exam Neurological Exam: Alert, Awake, Oriented x3 b/l hand numbness / tingling today - Psychiatric Exam Psychiatric exam: Normal Affect - Skin Skin Exam: Dry, Normal Color, Warm Tender to palpation at R sternal border, 2nd rib. Protrusion noted. Assessment and Plan - Assessment and Plan (Free Text) Plan: 71 year old male with past medical history including CA, CAD with history of CABG and valve replacement 6-7 years ago. Reports worstenting SOB and dizziness with associated swelling of bilateral LE for past 2-3 days. Admits this is the first time he has experienced these symptoms. SOB is worse when he lays flat. -Discharge planning once INR in 2.5-3.5 range Plan: Systolic dysfunction with acute on chronic heart failure Admit to telemetry, BNP 4560 on admission Consulted Cardiology, Dr. Arguelles - f/u recs -will need duiresis. will attempt to obtain company of AICD for interrogation. -Improving Volume status Lasix 40mg IV BID Digoxin 0.125mg Lisinopril 10mg daily Aldactone 25mg PO Daily patient with AICD, will check echo to determine EF CXR 01/03: mild cardiomegaly, mild pulmonary venous congestion. s/p sternotomy, aortic valve replacement, AICD H/O mitral valve replacement with mechanical valve Cardiac valve replacement 6-7yrs ago Consulted Cardiology, Dr. Arguelles - f/u recs -echocardiogram reviewed. valve leaflets are opening and functional. There is no signficant gradient across the valve. -recommend INR 2.5 to 3.5. STOP Lovenox 3/5 STOP Heparin Drip - cardiac protocol, with bolus (because patient is refusing blood draws) 01/07: PT/INR 1.3 01/08: PT/INR refused, Coumadin 10mg 01/09: PT/INR 1.5, Coumadin 10mg 01/10: PT/INR 2.0, Coumadin 10mg 01/11: PT/INR 2.4, Coumadin 7.5mg; patient received one more dose of Lovenox 80mg SC today, now discontinued as bridge complete. 01/12: f/u PT/INR Chronic atrial fibrillation Consulted Cardiology, Dr. Arguelles - f/u recs -Rate controlled -echocardiogram reviewed. valve leaflets are opening and functional. There is no signficant gradient across the valve. -recommend INR 2.5 to 3.5. -See PT/INR trends above Coumadin 7.5mg STOP Lovenox 01/11 COPD (chronic obstructive pulmonary disease) Consulted Pulmonology, Dr. Cobb for persistent shortness of breath -Patient with long history of smoking most likely has underlying COPD. Nebulizer treatment. Inhaled steroids. Spiriva. pulmonary function test as out pt -f/u Physical Therapy to walk patient and assess for desaturation 01/12 CAD (coronary artery disease) Consulted Cardiology, Dr. Arguelles - f/u recs -unknown graft status. no evidence of ischemia at present -No current angina History of CA (myocardial infarction) Crestor 10mg PO HS ROMIs negative x3 EKG paced Denies chest pain Electrolyte Imbalance Hyperkalemia - resolved Tachycardia EKG in ER: sinus tachycardia at 100, paced, incomplete RBBB Continue Digoxin 0.125mg Discontinued cardizem drip of 5mg/h started in the ER Lower extremity edema LE Duplex - negative. see full report. Prophylactic measure Stopped lovenox 40u sc daily (bridging lovenox 95u to Coumadin). protonix 40mg daily SCD contraindicated due to LE edema [All management as per Dr. Otoole] <Johnnie Otoole Jr. - Last Filed: 01/15/17 17:17> Objective - Vital Signs/Intake and Output Vital Signs (last 24 hours): Temp Pulse Resp BP Pulse Ox 97.6 F 89 20 104/66 100 01/15/17 16:57 01/15/17 16:57 01/15/17 16:57 01/15/17 16:57 01/15/17 16:57 Intake and Output: 01/15/17 01/15/17 06:59 18:59 Intake Total 300 480 Output Total 800 500 Balance -500 -20 - Medications Medications: Current Medications Albuterol/Ipratropium (Duoneb 3 Mg/0.5 Mg (3 Ml) Ud) 3 ml INH RQ6 [facility] Last Admin: 01/15/17 13:05 Dose: 3 ml Budesonide (Pulmicort Respules) 0.5 mg INH RQ12 [facility] Last Admin: 01/15/17 07:42 Dose: 0.5 mg Digoxin (Lanoxin) 0.125 mg PO DAILY@1800 [facility] Last Admin: 01/14/17 17:02 Dose: 0.125 mg Furosemide (Lasix) 40 mg IVP BID [facility] Last Admin: 01/15/17 09:15 Dose: 40 mg Guaifenesin (Mucinex [place]) 600 mg PO BID [facility] Last Admin: 01/15/17 10:11 Dose: 600 mg Lisinopril (Zestril) 10 mg PO DAILY [facility] Last Admin: 01/15/17 09:15 Dose: 10 mg Methylprednisolone (Solu-Medrol) 40 mg IVP Q8 [facility] Last Admin: 01/15/17 13:21 Dose: 40 mg Pantoprazole Sodium (Protonix Ec Tab) 40 mg PO DAILY [facility] Last Admin: 01/15/17 09:15 Dose: 40 mg Rosuvastatin Calcium (Crestor) 10 mg PO HS [facility] Last Admin: 01/14/17 21:04 Dose: 10 mg Spironolactone (Aldactone) 25 mg PO DAILY [facility] Last Admin: 01/15/17 09:15 Dose: 25 mg Tiotropium [place] (Spiriva) 18 mcg INH RQ24 [facility] Last Admin: 01/15/17 07:42 Dose: 18 mcg Warfarin Sodium (Coumadin) 5 mg PO 1800 [facility] Stop: 01/15/17 18:01 - Labs Labs: 01/15/17 11:10 01/15/17 11:10 PT 32.3 SECONDS (9.7-12.2) H* D 01/15/17 11:10 INR 2.8 D 01/15/17 11:10 APTT 31 SECONDS (21-34) D 01/15/17 11:10 Attending/Attestation - Attestation I have personally seen and examined this patient.: Yes I have fully participated in the care of the patient.: Yes I have reviewed all pertinent clinical information, including history, physical exam and plan: Yes Notes (Text): 01/15/17 17:17 Patient seen and examined with the resident. Reviewed resident note and agree with findings and plan of care. [ ]
[2017-01-11] MEDS ORDERED: Enoxaparin 80 mg Syringe SC SCH (11:00)
[2017-01-11] MEDS: Pantoprazole 40 mg EC Tab PO SCH (11:03)
--- NOTE | 2017-01-11 11:30 | CP.PCM.PN ---
Subjective - Date & Time of Evaluation Date of Evaluation: 01/11/17 Time of Evaluation: 11:20 - Subjective Subjective: patient wants to go home . no chest pain. Objective - Vital Signs/Intake and Output Vital Signs (last 24 hours): Temp Pulse Resp BP Pulse Ox 98.1 F 72 20 99/61 L 98 01/11/17 07:39 01/11/17 09:00 01/11/17 07:39 01/11/17 11:02 01/11/17 07:39 - Medications Medications: Current Medications Albuterol/Ipratropium (Duoneb 3 Mg/0.5 Mg (3 Ml) Ud) 3 ml INH RQ6 [facility] Last Admin: 01/11/17 07:39 Dose: 3 ml Budesonide (Pulmicort Respules) 0.5 mg INH RQ12 [facility] Last Admin: 01/11/17 07:39 Dose: 0.5 mg Digoxin (Lanoxin) 0.125 mg PO DAILY@1800 [facility] Last Admin: 01/10/17 18:15 Dose: 0.125 mg Enoxaparin Sodium (Lovenox) 80 mg SC Q12 [facility] Last Admin: 01/11/17 11:03 Dose: 80 mg Furosemide (Lasix) 40 mg IVP BID [facility] Last Admin: 01/11/17 11:02 Dose: 40 mg Lisinopril (Zestril) 10 mg PO DAILY [facility] Last Admin: 01/11/17 11:00 Dose: Not Given Pantoprazole Sodium (Protonix Ec Tab) 40 mg PO DAILY [facility] Last Admin: 01/11/17 11:03 Dose: 40 mg Rosuvastatin Calcium (Crestor) 10 mg PO HS [facility] Last Admin: 01/10/17 23:03 Dose: Not Given Spironolactone (Aldactone) 25 mg PO DAILY [facility] Last Admin: 01/11/17 10:59 Dose: Not Given Tiotropium [place] (Spiriva) 18 mcg INH RQ24 [facility] Last Admin: 01/11/17 07:39 Dose: 18 mcg - Labs Labs: 01/10/17 11:55 01/10/17 11:55 PT 22.4 SECONDS (9.7-12.2) H D 01/10/17 11:55 INR 2.0 D 01/10/17 11:55 APTT 43 SECONDS (21-34) H D 01/10/17 11:55 - Constitutional Appears: Non-toxic - Head Exam Head Exam: NORMAL INSPECTION - Eye Exam Eye Exam: Normal appearance - ENT Exam ENT Exam: Mucous Membranes Moist - Neck Exam Neck Exam: Full ROM - Respiratory Exam Respiratory Exam: Decreased Breath Sounds - Cardiovascular Exam Cardiovascular Exam: REGULAR RHYTHM - GI/Abdominal Exam GI & Abdominal Exam: Normal Bowel Sounds - Rectal Exam Rectal Exam: Deferred - Extremities Exam Extremities Exam: absent: Pedal Edema - Back Exam Back Exam: NORMAL INSPECTION - Neurological Exam Neurological Exam: Alert - Psychiatric Exam Psychiatric exam: Normal Affect - Skin Skin Exam: Normal Color Assessment and Plan (1) Systolic dysfunction with acute on chronic heart failure Assessment & Plan: will continue medical therapy Status: Acute (2) Chronic atrial fibrillation Assessment & Plan: anticoagulation with coumadin. Status: Acute (3) CAD (coronary artery disease) Assessment & Plan: no current angina Status: Acute (4) H/O mitral valve replacement with mechanical valve Assessment & Plan: coumadin goal INR 2.5-3.5 Status: Acute
[2017-01-11 12:04] LABS: BASO # 0.1 K/uL (0.0-0.2); BASO % 1.8 % (0.0-2.0); EOS # 0.1 K/uL (0.0-0.7); EOS % 2.7 % (0.0-4.0); HEMATOCRIT 35.9 % (35.0-51.0); LYMPH # 0.5 K/uL (1.0-4.3); LYMPH % 10.3 % (20.0-40.0); MEAN CELL VOLUME 81.4 fL (80.0-94.0); MEAN CORPUSCULAR HEMOGLOBIN 26.5 pg (27.0-31.0); MEAN CORPUSCULAR HGB CONC 32.6 g/dL (33.0-37.0); MEAN PLATELET VOLUME 8.8 fL (7.2-11.7); MONO # 0.6 K/uL (0.0-0.8); MONO % 12.3 % (0.0-10.0); RED CELL DISTRIBUTION WIDTH 19.7 % (11.5-14.5); WHITE BLOOD COUNT 4.8 K/uL (4.8-10.8)
[2017-01-11 12:08] LABS: INR 2.4
[2017-01-11 12:17] LABS: CHLORIDE 94 mmol/L (98-107); POTASSIUM 4.6 mmol/L (3.6-5.2); SODIUM 140 mmol/L (132-148)
[2017-01-11 12:19] LABS: ALB/GLOB RATIO 1.1 (1.0-2.1); ALKALINE PHOSPHATASE 80 U/L (38-126); AST/SGOT 23 U/L (17-59); BILIRUBIN,TOTAL 0.4 mg/dL (0.2-1.3); BLOOD UREA NITROGEN 22 mg/dL (9-20); CARBON DIOXIDE 34 mmol/L (22-30); GFR AFRICAN-AMERICAN > 60; GLUCOSE,RANDOM 86 mg/dL (75-110); TOTAL PROTEIN 7.1 g/dL (6.3-8.3)
[2017-01-11 12:20] LABS: ALT/SGPT 27 U/L (21-72); CALCIUM 9.6 mg/dl (8.6-10.4); MAGNESIUM 2.1 mg/dL (1.6-2.3)
--- NOTE | 2017-01-11 15:34 | CP.PCM.PN ---
Objective - Vital Signs/Intake and Output Vital Signs (last 24 hours): Temp Pulse Resp BP Pulse Ox 98.1 F 72 20 99/61 L 98 01/11/17 07:39 01/11/17 09:00 01/11/17 07:39 01/11/17 11:02 01/11/17 07:39 - Medications Medications: Current Medications Albuterol/Ipratropium (Duoneb 3 Mg/0.5 Mg (3 Ml) Ud) 3 ml INH RQ6 [facility] Last Admin: 01/11/17 13:33 Dose: 3 ml Budesonide (Pulmicort Respules) 0.5 mg INH RQ12 [facility] Last Admin: 01/11/17 07:39 Dose: 0.5 mg Digoxin (Lanoxin) 0.125 mg PO DAILY@1800 [facility] Last Admin: 01/10/17 18:15 Dose: 0.125 mg Enoxaparin Sodium (Lovenox) 80 mg SC Q12 [facility] Last Admin: 01/11/17 11:03 Dose: 80 mg Furosemide (Lasix) 40 mg IVP BID [facility] Last Admin: 01/11/17 11:02 Dose: 40 mg Lisinopril (Zestril) 10 mg PO DAILY [facility] Last Admin: 01/11/17 11:00 Dose: Not Given Pantoprazole Sodium (Protonix Ec Tab) 40 mg PO DAILY [facility] Last Admin: 01/11/17 11:03 Dose: 40 mg Rosuvastatin Calcium (Crestor) 10 mg PO HS [facility] Last Admin: 01/10/17 23:03 Dose: Not Given Spironolactone (Aldactone) 25 mg PO DAILY [facility] Last Admin: 01/11/17 10:59 Dose: Not Given Tiotropium [place] (Spiriva) 18 mcg INH RQ24 [facility] Last Admin: 01/11/17 07:39 Dose: 18 mcg - Labs Labs: 01/11/17 11:00 01/11/17 11:00 PT 27.4 SECONDS (9.7-12.2) H D 01/11/17 11:00 INR 2.4 01/11/17 11:00 APTT 35 SECONDS (21-34) H D 01/11/17 11:00 Assessment and Plan (1) COPD (chronic obstructive pulmonary disease) Status: Acute (2) Acute exacerbation of CHF (congestive heart failure) Status: Acute (3) Chronic atrial fibrillation Status: Acute
[2017-01-11] MEDS: Digoxin 125 mcg (0.125 mg) Tab PO SCH (17:02)
[2017-01-12] MEDS: Albuterol-Ipratrop 3 mg / 0.5 (3 ml) UD INH SCH ×3 (07:47→19:37)
[2017-01-12] MEDS: Budesonide 0.5 mg/2 ml Inhal Susp UD INH SCH ×2 (07:47→19:37)
[2017-01-12] MEDS: Tiotropium 18 mcg Cap For Inhalation INH SCH (07:47)
--- NOTE | 2017-01-12 07:55 | CP.PCM.PN ---
Subjective - Date & Time of Evaluation Date of Evaluation: 01/12/17 Time of Evaluation: 07:50 - Subjective Subjective: patient mainly complains about his cellphone. Objective - Vital Signs/Intake and Output Vital Signs (last 24 hours): Temp Pulse Resp BP Pulse Ox 98.8 F 77 20 92/63 L 95 01/11/17 23:35 01/11/17 23:35 01/11/17 23:35 01/11/17 23:35 01/11/17 23:35 Intake and Output: 01/12/17 01/12/17 06:59 18:59 Output Total 300 Balance -300 - Medications Medications: Current Medications Albuterol/Ipratropium (Duoneb 3 Mg/0.5 Mg (3 Ml) Ud) 3 ml INH RQ6 [facility] Last Admin: 01/12/17 07:47 Dose: 3 ml Budesonide (Pulmicort Respules) 0.5 mg INH RQ12 [facility] Last Admin: 01/12/17 07:47 Dose: 0.5 mg Digoxin (Lanoxin) 0.125 mg PO DAILY@1800 [facility] Last Admin: 01/11/17 17:02 Dose: 0.125 mg Furosemide (Lasix) 40 mg IVP BID [facility] Last Admin: 01/11/17 17:00 Dose: 40 mg Lisinopril (Zestril) 10 mg PO DAILY [facility] Last Admin: 01/11/17 11:00 Dose: Not Given Pantoprazole Sodium (Protonix Ec Tab) 40 mg PO DAILY [facility] Last Admin: 01/11/17 11:03 Dose: 40 mg Rosuvastatin Calcium (Crestor) 10 mg PO HS [facility] Last Admin: 01/11/17 21:31 Dose: 10 mg Spironolactone (Aldactone) 25 mg PO DAILY [facility] Last Admin: 01/11/17 10:59 Dose: Not Given Tiotropium [place] (Spiriva) 18 mcg INH RQ24 [facility] Last Admin: 01/12/17 07:47 Dose: 18 mcg - Labs Labs: 01/11/17 11:00 01/11/17 11:00 PT 27.4 SECONDS (9.7-12.2) H D 01/11/17 11:00 INR 2.4 01/11/17 11:00 APTT 35 SECONDS (21-34) H D 01/11/17 11:00 - Constitutional Appears: Non-toxic - Head Exam Head Exam: NORMAL INSPECTION - Eye Exam Eye Exam: Normal appearance - ENT Exam ENT Exam: Mucous Membranes Moist - Neck Exam Neck Exam: Full ROM - Respiratory Exam Respiratory Exam: Decreased Breath Sounds - Cardiovascular Exam Cardiovascular Exam: Irregular Rhythm - GI/Abdominal Exam GI & Abdominal Exam: Normal Bowel Sounds - Rectal Exam Rectal Exam: Deferred - Extremities Exam Extremities Exam: Pedal Edema - Back Exam Back Exam: NORMAL INSPECTION - Neurological Exam Neurological Exam: Alert - Psychiatric Exam Psychiatric exam: Normal Affect - Skin Skin Exam: Normal Color Assessment and Plan (1) Systolic dysfunction with acute on chronic heart failure Assessment & Plan: stable. Status: Acute (2) Chronic atrial fibrillation Assessment & Plan: continue coumadin Status: Acute (3) CAD (coronary artery disease) Assessment & Plan: no current angina Status: Acute (4) H/O mitral valve replacement with mechanical valve Assessment & Plan: goal INR 2.5-3.5 Status: Acute
[2017-01-12] MEDS: Pantoprazole 40 mg EC Tab PO SCH (10:33)
[2017-01-12 11:07] LABS: BASO # 0.1 K/uL (0.0-0.2); EOS # 0.1 K/uL (0.0-0.7); EOS % 2.8 % (0.0-4.0); HEMATOCRIT 37.3 % (35.0-51.0); LYMPH # 0.4 K/uL (1.0-4.3); LYMPH % 7.7 % (20.0-40.0); MEAN CELL VOLUME 81.6 fL (80.0-94.0); MEAN CORPUSCULAR HGB CONC 31.9 g/dL (33.0-37.0); MEAN PLATELET VOLUME 8.5 fL (7.2-11.7); MONO # 0.6 K/uL (0.0-0.8); MONO % 11.8 % (0.0-10.0); PLATELET COUNT 153 K/uL (130-400); RED CELL DISTRIBUTION WIDTH 19.9 % (11.5-14.5); WHITE BLOOD COUNT 5.1 K/uL (4.8-10.8)
[2017-01-12 11:15] LABS: INR 2.5
[2017-01-12 11:27] LABS: CHLORIDE 93 mmol/L (98-107); POTASSIUM 5.2 mmol/L (3.6-5.2); SODIUM 139 mmol/L (132-148)
[2017-01-12 11:29] LABS: ALB/GLOB RATIO 1.1 (1.0-2.1); ALKALINE PHOSPHATASE 81 U/L (38-126); AST/SGOT 27 U/L (17-59); BILIRUBIN,TOTAL 0.4 mg/dL (0.2-1.3); CARBON DIOXIDE 33 mmol/L (22-30); GFR AFRICAN-AMERICAN > 60; TOTAL PROTEIN 7.4 g/dL (6.3-8.3)
[2017-01-12 11:30] LABS: ALT/SGPT 32 U/L (21-72); BLOOD UREA NITROGEN 24 mg/dL (9-20); CALCIUM 9.5 mg/dl (8.6-10.4); GLUCOSE,RANDOM 109 mg/dL (75-110)
[2017-01-12 11:31] LABS: MAGNESIUM 2.1 mg/dL (1.6-2.3)
[2017-01-12 11:38] LABS: BASOPHIL 1 % (0-2); EOSINOPHIL 1 % (0-4); NEUTROPHIL 70 % (50-75); TOTAL CELLS COUNTED 100
[2017-01-12] MEDS ORDERED: MethylPREDNISolone 40 mg Vial IVP PRN (13:11)
--- NOTE | 2017-01-12 13:19 | CP.PCM.PN ---
<Lenny Adam - Last Filed: 01/12/17 16:03> Subjective - Date & Time of Evaluation Date of Evaluation: 01/12/17 Time of Evaluation: 07:50 - Subjective Subjective: PGY1 Medicine Note- Dr Otoole Patient seen and examined at bedside. No overnight events per nursing. Patient continues to be SOB while speaking. Walked 20 steps today down bruno, and patient became dizzy, SOB, and almost collapsed. Returned to bed safely. PT to walk patient without oxygen to monitor for de-saturation. Denies difficulty with ambulation or history of arrhythmia. Denies f/c, dizziness, palpitations, cough, abdominal pain, n/v, d/c, or any additional complaints. Objective - Vital Signs/Intake and Output Vital Signs (last 24 hours): Temp Pulse Resp BP Pulse Ox 97.8 F 91 H 20 120/75 100 01/12/17 07:02 01/12/17 08:47 01/12/17 07:02 01/12/17 10:33 01/12/17 07:02 Intake and Output: 01/12/17 01/12/17 06:59 18:59 Output Total 300 Balance -300 - Medications Medications: Current Medications Albuterol/Ipratropium (Duoneb 3 Mg/0.5 Mg (3 Ml) Ud) 3 ml INH RQ6 [facility] Last Admin: 01/12/17 07:47 Dose: 3 ml Budesonide (Pulmicort Respules) 0.5 mg INH RQ12 [facility] Last Admin: 01/12/17 07:47 Dose: 0.5 mg Digoxin (Lanoxin) 0.125 mg PO DAILY@1800 [facility] Last Admin: 01/11/17 17:02 Dose: 0.125 mg Furosemide (Lasix) 40 mg IVP BID [facility] Last Admin: 01/12/17 10:33 Dose: 40 mg Lisinopril (Zestril) 10 mg PO DAILY [facility] Last Admin: 01/12/17 10:32 Dose: Not Given Methylprednisolone (Solu-Medrol) 40 mg IVP Q8 PRN PRN Reason: Shortness of Breath Pantoprazole Sodium (Protonix Ec Tab) 40 mg PO DAILY [facility] Last Admin: 01/12/17 10:33 Dose: 40 mg Rosuvastatin Calcium (Crestor) 10 mg PO HS [facility] Last Admin: 01/11/17 21:31 Dose: 10 mg Spironolactone (Aldactone) 25 mg PO DAILY [facility] Last Admin: 01/12/17 10:33 Dose: 25 mg Tiotropium [place] (Spiriva) 18 mcg INH RQ24 [facility] Last Admin: 01/12/17 07:47 Dose: 18 mcg - Labs Labs: 01/12/17 11:01 01/12/17 11:01 PT 28.8 SECONDS (9.7-12.2) H 01/12/17 11:01 INR 2.5 01/12/17 11:01 APTT 41 SECONDS (21-34) H D 01/12/17 11:01 - Additional Findings Additional findings: - Constitutional Appears: Non-toxic, No Acute Distress - Head Exam Head Exam: ATRAUMATIC - Eye Exam Eye Exam: EOMI - ENT Exam ENT Exam: Mucous Membranes Moist - Respiratory Exam Respiratory Exam: Decreased Breath Sounds, Wheezes, Rhonchi, Respiratory Distress (SOB while speaking). absent: Clear to Ausculation Bilateral -attempted walk patient 20 steps today, nearly collapsed from dizziness/SOB - Cardiovascular Exam Cardiovascular Exam: REGULAR RHYTHM, +S1, +S2 - GI/Abdominal Exam GI & Abdominal Exam: Soft, Normal Bowel Sounds. absent: Tenderness - Extremities Exam Extremities Exam: Pedal Edema (b/l 1+ pitting to mid thigh). absent: Tenderness Additional comments: pedal pulses 2+ - Neurological Exam Neurological Exam: Alert, Awake, Oriented x3 b/l hand numbness / tingling today - Psychiatric Exam Psychiatric exam: Normal Affect - Skin Skin Exam: Dry, Normal Color, Warm Tender to palpation at R sternal border, 2nd rib. Protrusion noted. Assessment and Plan - Assessment and Plan (Free Text) Assessment: 71 year old male with past medical history including DE, CAD with history of CABG and valve replacement 6-7 years ago. Reports worstenting SOB and dizziness with associated swelling of bilateral LE for past 2-3 days. Admits this is the first time he has experienced these symptoms. SOB is worse when he lays flat. -Discharge planning to [facility] once INR in 2.5-3.5 range Plan: Systolic dysfunction with acute on chronic heart failure Admit to telemetry, BNP [id number] on admission Consulted Cardiology, Dr. Arguelles - f/u recs -will need duiresis. will attempt to obtain [employer] for interrogation. -Improving Volume status Lasix 40mg IV BID Digoxin 0.125mg Lisinopril 10mg daily Aldactone 25mg PO Daily patient with AICD, will check echo to determine EF CXR 01/03: mild cardiomegaly, mild pulmonary venous congestion. s/p sternotomy, aortic valve replacement, AICD H/O mitral valve replacement with mechanical valve Cardiac valve replacement 6-7yrs ago Consulted Cardiology, Dr. Arguelles - f/u recs -echocardiogram reviewed. valve leaflets are opening and functional. There is no signficant gradient across the valve. -recommend INR 2.5 to 3.5. STOP Lovenox 01/11 STOP Heparin Drip - cardiac protocol, with bolus (because patient is refusing blood draws) 01/07: PT/INR 1.3 01/08: PT/INR refused, Coumadin 10mg 01/09: PT/INR 1.5, Coumadin 10mg 01/10: PT/INR 2.0, Coumadin 10mg 01/11: PT/INR 2.4, Coumadin 7.5mg; patient received one more dose of Lovenox 80mg SC today, now discontinued as bridge complete. 01/12: PT/INR 2.5, Coumadin 7.5mg, f/u INR Chronic atrial fibrillation Consulted Cardiology, Dr. Arguelles - f/u recs -Rate controlled -echocardiogram reviewed. valve leaflets are opening and functional. There is no signficant gradient across the valve. -recommend INR 2.5 to 3.5. -See PT/INR trends above Coumadin as above STOP Lovenox 01/11 COPD (chronic obstructive pulmonary disease) -01/13: f/u Physical Therapy to walk patient and assess for desaturation -01/12: Walked 20 steps today down bruno, and patient became dizzy, SOB, and almost collapsed. - Solumedrol 40mg IVP Q8H [facility] (01/12) - Consulted Pulmonology, Dr. Cobb, f/u recs - persistent shortness of breath - Patient with long history of smoking most likely has underlying COPD. Nebulizer treatment. Inhaled steroids. Spiriva. pulmonary function test as out pt CAD (coronary artery disease) Consulted Cardiology, Dr. Arguelles - f/u recs -unknown graft status. no evidence of ischemia at present -No current angina History of DE (myocardial infarction) Crestor 10mg PO HS ROMIs negative x3 EKG paced Denies chest pain Electrolyte Imbalance Hyperkalemia - resolved Tachycardia EKG in ER: sinus tachycardia at 100, paced, incomplete RBBB Continue Digoxin 0.125mg Discontinued cardizem drip of 5mg/h started in the ER Lower extremity edema LE Duplex - negative. see full report. Prophylactic measure Stopped lovenox 40u sc daily (bridging lovenox 95u to Coumadin). protonix 40mg daily SCD contraindicated due to LE edema [All management as per Dr. Otoole] <Johnnie Otoole Jr. - Last Filed: 01/15/17 17:20> Objective - Vital Signs/Intake and Output Vital Signs (last 24 hours): Temp Pulse Resp BP Pulse Ox 97.6 F 89 20 104/66 100 01/15/17 16:57 01/15/17 16:57 01/15/17 16:57 01/15/17 16:57 01/15/17 16:57 Intake and Output: 01/15/17 01/15/17 06:59 18:59 Intake Total 300 480 Output Total 800 500 Balance -500 -20 - Medications Medications: Current Medications Albuterol/Ipratropium (Duoneb 3 Mg/0.5 Mg (3 Ml) Ud) 3 ml INH RQ6 [facility] Last Admin: 01/15/17 13:05 Dose: 3 ml Budesonide (Pulmicort Respules) 0.5 mg INH RQ12 [facility] Last Admin: 01/15/17 07:42 Dose: 0.5 mg Digoxin (Lanoxin) 0.125 mg PO DAILY@1800 [facility] Last Admin: 01/14/17 17:02 Dose: 0.125 mg Furosemide (Lasix) 40 mg IVP BID [facility] Last Admin: 01/15/17 09:15 Dose: 40 mg Guaifenesin (Mucinex [place]) 600 mg PO BID [facility] Last Admin: 01/15/17 10:11 Dose: 600 mg Lisinopril (Zestril) 10 mg PO DAILY [facility] Last Admin: 01/15/17 09:15 Dose: 10 mg Methylprednisolone (Solu-Medrol) 40 mg IVP Q8 [facility] Last Admin: 01/15/17 13:21 Dose: 40 mg Pantoprazole Sodium (Protonix Ec Tab) 40 mg PO DAILY [facility] Last Admin: 01/15/17 09:15 Dose: 40 mg Rosuvastatin Calcium (Crestor) 10 mg PO HS [facility] Last Admin: 01/14/17 21:04 Dose: 10 mg Spironolactone (Aldactone) 25 mg PO DAILY [facility] Last Admin: 01/15/17 09:15 Dose: 25 mg Tiotropium [place] (Spiriva) 18 mcg INH RQ24 [facility] Last Admin: 01/15/17 07:42 Dose: 18 mcg Warfarin Sodium (Coumadin) 5 mg PO 1800 [facility] Stop: 01/15/17 18:01 - Labs Labs: 01/15/17 11:10 01/15/17 11:10 PT 32.3 SECONDS (9.7-12.2) H* D 01/15/17 11:10 INR 2.8 D 01/15/17 11:10 APTT 31 SECONDS (21-34) D 01/15/17 11:10 Attending/Attestation - Attestation I have personally seen and examined this patient.: Yes I have fully participated in the care of the patient.: Yes I have reviewed all pertinent clinical information, including history, physical exam and plan: Yes Notes (Text): 01/15/17 17:20 Patient seen and examined with the resident. Reviewed resident note and agree with findings and plan of care. [ ]
[2017-01-12] MEDS: MethylPREDNISolone 40 mg Vial IVP SCH ×2 (13:42→21:56)
--- NOTE | 2017-01-12 14:11 | CP.PCM.PN ---
Subjective - Date & Time of Evaluation Date of Evaluation: 01/12/17 Time of Evaluation: 10:00 - Subjective Subjective: Patient was seen and examined at bedside Patient was in no acute distress, however continued to complain of SOB Patient complains of Cough that kept him up at night, however ceased today. patient states that he has not gotten up from his bed to move around much since admitted. Objective - Vital Signs/Intake and Output Vital Signs (last 24 hours): Temp Pulse Resp BP Pulse Ox 97.8 F 98 H 18 120/75 96 01/12/17 07:02 01/12/17 13:34 01/12/17 13:34 01/12/17 10:33 01/12/17 13:34 Intake and Output: 01/12/17 01/12/17 06:59 18:59 Output Total 300 Balance -300 - Medications Medications: Current Medications Albuterol/Ipratropium (Duoneb 3 Mg/0.5 Mg (3 Ml) Ud) 3 ml INH RQ6 [facility] Last Admin: 01/12/17 13:21 Dose: 3 ml Budesonide (Pulmicort Respules) 0.5 mg INH RQ12 [facility] Last Admin: 01/12/17 07:47 Dose: 0.5 mg Digoxin (Lanoxin) 0.125 mg PO DAILY@1800 [facility] Last Admin: 01/11/17 17:02 Dose: 0.125 mg Furosemide (Lasix) 40 mg IVP BID [facility] Last Admin: 01/12/17 10:33 Dose: 40 mg Lisinopril (Zestril) 10 mg PO DAILY [facility] Last Admin: 01/12/17 10:32 Dose: Not Given Methylprednisolone (Solu-Medrol) 40 mg IVP Q8 [facility] Last Admin: 01/12/17 13:42 Dose: 40 mg Pantoprazole Sodium (Protonix Ec Tab) 40 mg PO DAILY [facility] Last Admin: 01/12/17 10:33 Dose: 40 mg Rosuvastatin [place]cium (Crestor) 10 mg PO HS [facility] Last Admin: 01/11/17 21:31 Dose: 10 mg Spironolactone (Aldactone) 25 mg PO DAILY [facility] Last Admin: 01/12/17 10:33 Dose: 25 mg Tiotropium [place] (Spiriva) 18 mcg INH RQ24 [facility] Last Admin: 01/12/17 07:47 Dose: 18 mcg - Labs Labs: 03/06/17 11:01 01/12/17 11:01 PT 28.8 SECONDS (9.7-12.2) H 01/12/17 11:01 INR 2.5 01/12/17 11:01 APTT 41 SECONDS (21-34) H D 01/12/17 11:01 - Constitutional Appears: No Acute Distress - Head Exam Head Exam: NORMAL INSPECTION - Eye Exam Eye Exam: Normal appearance - ENT Exam ENT Exam: Mucous Membranes Moist - Respiratory Exam Respiratory Exam: Decreased Breath Sounds, NORMAL BREATHING PATTERN. absent: Rales Additional comments: Patient's breath sounds much improved over the course of the last 2 days - Cardiovascular Exam Cardiovascular Exam: REGULAR RHYTHM, +S1, +S2 - Neurological Exam Neurological Exam: Alert, Awake, Oriented x3 - Psychiatric Exam Psychiatric exam: Normal Affect, Normal Mood Assessment and Plan (1) COPD (chronic obstructive pulmonary disease) Assessment & Plan: agreed with medical team to discontinue supplemental oxygen via nasal canula pending performance of pulse oxymetry walk test for 6 minutes to assess for desaturation continue duoneb, budesonide, solumedrol, tiotroprium Status: Acute (2) Acute exacerbation of CHF (congestive heart failure) Status: Acute (3) Chronic atrial fibrillation Status: Acute
--- NOTE | 2017-01-12 17:02 | CARD ---
APPROVED REPORT EKG Measurement Heart [id number] <Conclusion> Demand pacemaker, interpretation is based on intrinsic rhythm Atrial fibrillation with premature ventricular or aberrantly conducted complexes Right bundle branch block Abnormal ECG
[2017-01-12] MEDS: Digoxin 125 mcg (0.125 mg) Tab PO SCH (19:07)
[2017-01-13] MEDS: Albuterol-Ipratrop 3 mg / 0.5 (3 ml) UD INH SCH ×4 (01:29→19:07)
[2017-01-13] MEDS: MethylPREDNISolone 40 mg Vial IVP SCH ×3 (06:41→22:04)
--- NOTE | 2017-01-13 07:33 | CP.PCM.PN ---
<Lenny Adam - Last Filed: 01/13/17 15:03> Subjective - Date & Time of Evaluation Date of Evaluation: 01/13/17 Time of Evaluation: 07:05 - Subjective Subjective: PGY1 Medicine Note- Dr Otoole Patient seen and examined at bedside. No overnight events per nursing. Patient continues to be SOB while speaking. PT performed desaturation test while ambulating today. Denies pain with ambulation, although he becomes very SOB. Denies f/c, dizziness, palpitations, cough, abdominal pain, n/v, d/c, or any additional complaints. Objective - Vital Signs/Intake and Output Vital Signs (last 24 hours): Temp Pulse Resp BP Pulse Ox 97.5 F L 87 20 119/75 95 01/12/17 23:25 01/13/17 02:01 01/12/17 23:25 01/12/17 23:25 01/12/17 23:25 Intake and Output: 01/13/17 01/13/17 06:59 18:59 Intake Total 650 Output Total 1300 Balance -650 - Medications Medications: Current Medications Albuterol/Ipratropium (Duoneb 3 Mg/0.5 Mg (3 Ml) Ud) 3 ml INH RQ6 [facility] Last Admin: 01/13/17 01:29 Dose: Not Given Budesonide (Pulmicort Respules) 0.5 mg INH RQ12 [facility] Last Admin: 01/12/17 19:37 Dose: 0.5 mg Digoxin (Lanoxin) 0.125 mg PO DAILY@1800 [facility] Last Admin: 01/12/17 19:07 Dose: 0.125 mg Furosemide (Lasix) 40 mg IVP BID [facility] Last Admin: 01/12/17 19:08 Dose: 40 mg Lisinopril (Zestril) 10 mg PO DAILY [facility] Last Admin: 01/12/17 10:32 Dose: Not Given Methylprednisolone (Solu-Medrol) 40 mg IVP Q8 [facility] Last Admin: 01/13/17 06:41 Dose: 40 mg Pantoprazole Sodium (Protonix Ec Tab) 40 mg PO DAILY [facility] Last Admin: 01/12/17 10:33 Dose: 40 mg Rosuvastatin Calcium (Crestor) 10 mg PO HS [facility] Last Admin: 01/12/17 21:57 Dose: 10 mg Spironolactone (Aldactone) 25 mg PO DAILY [facility] Last Admin: 01/12/17 10:33 Dose: 25 mg Tiotropium [place] (Spiriva) 18 mcg INH RQ24 [facility] Last Admin: 01/12/17 07:47 Dose: 18 mcg - Labs Labs: 01/12/17 11:01 01/12/17 11:01 PT 28.8 SECONDS (9.7-12.2) H 01/12/17 11:01 INR 2.5 01/12/17 11:01 APTT 41 SECONDS (21-34) H D 01/12/17 11:01 - Additional Findings Additional findings: - Constitutional Appears: Non-toxic, No Acute Distress - Head Exam Head Exam: ATRAUMATIC - Eye Exam Eye Exam: EOMI - ENT Exam ENT Exam: Mucous Membranes Moist - Respiratory Exam Respiratory Exam: Decreased Breath Sounds, Wheezes, Rhonchi, Respiratory Distress (SOB while speaking). absent: Clear to Ausculation Bilateral -desaturates to 82% while walking, 88% with NC 2L - Cardiovascular Exam Cardiovascular Exam: REGULAR RHYTHM, +S1, +S2 - GI/Abdominal Exam GI & Abdominal Exam: Soft, Normal Bowel Sounds. absent: Tenderness - Extremities Exam Extremities Exam: Pedal Edema (b/l 1+ pitting to mid thigh). absent: Tenderness Additional comments: pedal pulses 2+ - Neurological Exam Neurological Exam: Alert, Awake, Oriented x3 b/l hand numbness / tingling today resolved - Psychiatric Exam Psychiatric exam: Normal Affect - Skin Skin Exam: Dry, Normal Color, Warm Tender to palpation at R sternal border, 2nd rib. Protrusion noted. Assessment and Plan - Assessment and Plan (Free Text) Assessment: 71 year old male with past medical history including GA, CAD with history of CABG and valve replacement 6-7 years ago. Reports worstenting SOB and dizziness with associated swelling of bilateral LE for past 2-3 days. Admits this is the first time he has experienced these symptoms. SOB is worse when he lays flat. -Discharge planning to [facility] once INR in 2.5-3.5 range and SOB is better controlled. Plan: Systolic dysfunction with acute on chronic heart failure Admit to telemetry, BNP [id number] on admission Consulted Cardiology, Dr. Arguelles - f/u recs -will need duiresis. will attempt to obtain company of [employer] for interrogation. -Improving Volume status Lasix 40mg IV BID Digoxin 0.125mg Lisinopril 10mg daily Aldactone 25mg PO Daily patient with AICD, will check echo to determine EF CXR 01/03: mild cardiomegaly, mild pulmonary venous congestion. s/p sternotomy, aortic valve replacement, AICD H/O mitral valve replacement with mechanical valve Cardiac valve replacement 6-7yrs ago Consulted Cardiology, Dr. Arguelles - f/u recs -echocardiogram reviewed. valve leaflets are opening and functional. There is no signficant gradient across the valve. -recommend INR 2.5 to 3.5. STOP Lovenox 01/11 STOP Heparin Drip - cardiac protocol, with bolus (because patient is refusing blood draws) 01/07: PT/INR 1.3 01/08: PT/INR refused, Coumadin 10mg 01/09: PT/INR 1.5, Coumadin 10mg 01/10: PT/INR 2.0, Coumadin 10mg 01/11: PT/INR 2.4, Coumadin 7.5mg; patient received one more dose of Lovenox 80mg SC today, now discontinued as bridge complete. 01/12: PT/INR 2.5, Coumadin 7.5mg 01/13: PT/INR 3.1, Coumadin 5mg, f/u INR Chronic atrial fibrillation Consulted Cardiology, Dr. Arguelles - f/u recs -Rate controlled -echocardiogram reviewed. valve leaflets are opening and functional. There is no signficant gradient across the valve. -recommend INR 2.5 to 3.5. -See PT/INR trends above Coumadin as above STOP Lovenox 01/11 COPD (chronic obstructive pulmonary disease) -01/13: PT session: 98% O2 at 2L at rest, 96% room air at rest sitting, 82% room air during ambulation, 88% at 2 liter ambulation. -01/12: Walked 20 steps today down bruno, and patient became dizzy, SOB, and almost collapsed. - Solumedrol 40mg IVP Q8H [facility] (01/12) - Consulted Pulmonology, Dr. Cobb, f/u recs - Aware of HR in 140's and SOB after eating and low levels of exertion. -f/u ABG, LDH, HIV (01/14) - persistent shortness of breath - Patient with long history of smoking most likely has underlying COPD. Nebulizer treatment. Inhaled steroids. Spiriva. pulmonary function test as out pt CAD (coronary artery disease) Consulted Cardiology, Dr. Arguelles - f/u recs -Aware of HR in 140's and SOB after eating and low levels of exertion. -unknown graft status. no evidence of ischemia at present -No current angina History of GA (myocardial infarction) Crestor 10mg PO HS ROMIs negative x3 EKG paced Denies chest pain Electrolyte Imbalance Hyperkalemia - resolved Tachycardia 01/13: Patient becomes SOB very easily, desaturating to 82% while ambulating. Anytime he eats or gets up, HR climbs into 140's Continue Digoxin 0.125mg EKG in ER: sinus tachycardia at 100, paced, incomplete RBBB Discontinued cardizem drip of 5mg/h started in the ER Lower extremity edema LE Duplex - negative. see full report. Prophylactic measure Stopped lovenox 40u sc daily (bridging lovenox to Coumadin). protonix 40mg daily SCD contraindicated due to LE edema [All management as per Dr. Otoole] <Johnnie Otoole Jr. - Last Filed: 01/15/17 17:21> Objective - Vital Signs/Intake and Output Vital Signs (last 24 hours): Temp Pulse Resp BP Pulse Ox 97.6 F 89 20 104/66 100 01/15/17 16:57 01/15/17 16:57 01/15/17 16:57 01/15/17 16:57 01/15/17 16:57 Intake and Output: 01/15/17 01/15/17 06:59 18:59 Intake Total 300 480 Output Total 800 500 Balance -500 -20 - Medications Medications: Current Medications Albuterol/Ipratropium (Duoneb 3 Mg/0.5 Mg (3 Ml) Ud) 3 ml INH RQ6 [facility] Last Admin: 01/15/17 13:05 Dose: 3 ml Budesonide (Pulmicort Respules) 0.5 mg INH RQ12 [facility] Last Admin: 01/15/17 07:42 Dose: 0.5 mg Digoxin (Lanoxin) 0.125 mg PO DAILY@1800 [facility] Last Admin: 01/14/17 17:02 Dose: 0.125 mg Furosemide (Lasix) 40 mg IVP BID [facility] Last Admin: 01/15/17 09:15 Dose: 40 mg Guaifenesin (Mucinex [place]) 600 mg PO BID [facility] Last Admin: 01/15/17 10:11 Dose: 600 mg Lisinopril (Zestril) 10 mg PO DAILY [facility] Last Admin: 01/15/17 09:15 Dose: 10 mg Methylprednisolone (Solu-Medrol) 40 mg IVP Q8 [facility] Last Admin: 01/15/17 13:21 Dose: 40 mg Pantoprazole Sodium (Protonix Ec Tab) 40 mg PO DAILY [facility] Last Admin: 01/15/17 09:15 Dose: 40 mg Rosuvastatin Calcium (Crestor) 10 mg PO HS [facility] Last Admin: 01/14/17 21:04 Dose: 10 mg Spironolactone (Aldactone) 25 mg PO DAILY [facility] Last Admin: 01/15/17 09:15 Dose: 25 mg Tiotropium [place] (Spiriva) 18 mcg INH RQ24 [facility] Last Admin: 01/15/17 07:42 Dose: 18 mcg Warfarin Sodium (Coumadin) 5 mg PO 1800 [facility] Stop: 01/15/17 18:01 - Labs Labs: 01/15/17 11:10 01/15/17 11:10 PT 32.3 SECONDS (9.7-12.2) H* D 01/15/17 11:10 INR 2.8 D 01/15/17 11:10 APTT 31 SECONDS (21-34) D 01/15/17 11:10 Attending/Attestation - Attestation I have personally seen and examined this patient.: Yes I have fully participated in the care of the patient.: Yes I have reviewed all pertinent clinical information, including history, physical exam and plan: Yes Notes (Text): 01/15/17 17:21 Patient seen and examined with the resident. Reviewed resident note and agree with findings and plan of care. [ ]
[2017-01-13] MEDS: Budesonide 0.5 mg/2 ml Inhal Susp UD INH SCH ×2 (08:37→19:07)
[2017-01-13] MEDS: Tiotropium 18 mcg Cap For Inhalation INH SCH (08:38)
[2017-01-13] MEDS: Pantoprazole 40 mg EC Tab PO SCH (09:22)
--- NOTE | 2017-01-13 09:59 | CP.PCM.PN ---
Subjective - Date & Time of Evaluation Date of Evaluation: 01/13/17 Time of Evaluation: 09:50 - Subjective Subjective: patient states breathing is improved. Objective - Vital Signs/Intake and Output Vital Signs (last 24 hours): Temp Pulse Resp BP Pulse Ox 97.5 F L 89 20 112/67 95 01/13/17 07:59 01/13/17 08:52 01/13/17 07:59 01/13/17 09:23 01/13/17 07:59 Intake and Output: 01/13/17 01/13/17 06:59 18:59 Intake Total 650 Output Total 1300 Balance -650 - Medications Medications: Current Medications Albuterol/Ipratropium (Duoneb 3 Mg/0.5 Mg (3 Ml) Ud) 3 ml INH RQ6 [facility] Last Admin: 01/13/17 08:37 Dose: 3 ml Budesonide (Pulmicort Respules) 0.5 mg INH RQ12 [facility] Last Admin: 01/13/17 08:37 Dose: 0.5 mg Digoxin (Lanoxin) 0.125 mg PO DAILY@1800 [facility] Last Admin: 01/12/17 19:07 Dose: 0.125 mg Furosemide (Lasix) 40 mg IVP BID [facility] Last Admin: 01/13/17 09:23 Dose: 40 mg Lisinopril (Zestril) 10 mg PO DAILY [facility] Last Admin: 01/12/17 10:32 Dose: Not Given Methylprednisolone (Solu-Medrol) 40 mg IVP Q8 [facility] Last Admin: 01/13/17 06:41 Dose: 40 mg Pantoprazole Sodium (Protonix Ec Tab) 40 mg PO DAILY [facility] Last Admin: 01/13/17 09:22 Dose: 40 mg Rosuvastatin Calcium (Crestor) 10 mg PO HS [facility] Last Admin: 01/12/17 21:57 Dose: 10 mg Spironolactone (Aldactone) 25 mg PO DAILY [facility] Last Admin: 01/13/17 09:23 Dose: 25 mg Tiotropium [place] (Spiriva) 18 mcg INH RQ24 [facility] Last Admin: 01/13/17 08:38 Dose: 18 mcg - Labs Labs: 01/12/17 11:01 01/12/17 11:01 PT 28.8 SECONDS (9.7-12.2) H 01/12/17 11:01 INR 2.5 01/12/17 11:01 APTT 41 SECONDS (21-34) H D 01/12/17 11:01 - Constitutional Appears: Non-toxic - Head Exam Head Exam: NORMAL INSPECTION - Eye Exam Eye Exam: Normal appearance - ENT Exam ENT Exam: Mucous Membranes Moist - Neck Exam Neck Exam: Full ROM - Respiratory Exam Respiratory Exam: Decreased Breath Sounds - Cardiovascular Exam Cardiovascular Exam: Irregular Rhythm - GI/Abdominal Exam GI & Abdominal Exam: Normal Bowel Sounds - Rectal Exam Rectal Exam: Deferred - Extremities Exam Extremities Exam: absent: Pedal Edema - Back Exam Back Exam: NORMAL INSPECTION - Neurological Exam Neurological Exam: Alert - Psychiatric Exam Psychiatric exam: Normal Affect - Skin Skin Exam: Normal Color Assessment and Plan (1) Systolic dysfunction with acute on chronic heart failure Assessment & Plan: improving volume status. Status: Acute (2) Chronic atrial fibrillation Assessment & Plan: maintain coumadin Status: Acute (3) CAD (coronary artery disease) Assessment & Plan: no current angina Status: Acute (4) H/O mitral valve replacement with mechanical valve Assessment & Plan: continue coumadin, goal INR 2.5-3.5 Status: Acute
--- NOTE | 2017-01-13 11:06 | CP.PCM.PN ---
Subjective - Date & Time of Evaluation Date of Evaluation: 01/13/17 Time of Evaluation: 09:30 - Subjective Subjective: Patient was seen and examined at bedside Patient was in no acute distress. Patient still complains of SOB that waxes and wanes in severity. Patient states that he was able to ambulate down the bruno yesterday unassisted, however he was severely SOB upon this exertional activity Patient states that his cough is less severe in comparison to yesterday, however he Does complain of phlegm buildup Objective - Vital Signs/Intake and Output Vital Signs (last 24 hours): Temp Pulse Resp BP Pulse Ox 97.5 F L 89 20 112/67 95 01/13/17 07:59 01/13/17 08:52 01/13/17 07:59 01/13/17 09:23 01/13/17 07:59 Intake and Output: 01/13/17 01/13/17 06:59 18:59 Intake Total 650 Output Total 1300 Balance -650 - Medications Medications: Current Medications Albuterol/Ipratropium (Duoneb 3 Mg/0.5 Mg (3 Ml) Ud) 3 ml INH RQ6 [facility] Last Admin: 01/13/17 08:37 Dose: 3 ml Budesonide (Pulmicort Respules) 0.5 mg INH RQ12 [facility] Last Admin: 01/13/17 08:37 Dose: 0.5 mg Digoxin (Lanoxin) 0.125 mg PO DAILY@1800 [facility] Last Admin: 01/12/17 19:07 Dose: 0.125 mg Furosemide (Lasix) 40 mg IVP BID [facility] Last Admin: 01/13/17 09:23 Dose: 40 mg Lisinopril (Zestril) 10 mg PO DAILY [facility] Last Admin: 01/12/17 10:32 Dose: Not Given Methylprednisolone (Solu-Medrol) 40 mg IVP Q8 [facility] Last Admin: 01/13/17 06:41 Dose: 40 mg Pantoprazole Sodium (Protonix Ec Tab) 40 mg PO DAILY [facility] Last Admin: 01/13/17 09:22 Dose: 40 mg Rosuvastatin Calcium (Crestor) 10 mg PO HS [facility] Last Admin: 01/12/17 21:57 Dose: 10 mg Spironolactone (Aldactone) 25 mg PO DAILY [facility] Last Admin: 01/13/17 09:23 Dose: 25 mg Tiotropium [place] (Spiriva) 18 mcg INH RQ24 [facility] Last Admin: 01/13/17 08:38 Dose: 18 mcg - Labs Labs: 01/12/17 11:01 01/12/17 11:01 PT 28.8 SECONDS (9.7-12.2) H 01/12/17 11:01 INR 2.5 01/12/17 11:01 APTT 41 SECONDS (21-34) H D 01/12/17 11:01 - Constitutional Appears: No Acute Distress - Head Exam Head Exam: NORMAL INSPECTION - Eye Exam Eye Exam: Normal appearance - ENT Exam ENT Exam: Mucous Membranes Moist - Respiratory Exam Respiratory Exam: Prolonged Expiratory Phase, Rales Additional comments: Right > Left - Cardiovascular Exam Cardiovascular Exam: REGULAR RHYTHM, +S1, +S2 - Neurological Exam Neurological Exam: Alert, Awake, Oriented x3 - Psychiatric Exam Psychiatric exam: Normal Affect, Normal Mood - Skin Skin Exam: Dry, Normal Color, Warm Assessment and Plan (1) COPD (chronic obstructive pulmonary disease) Assessment & Plan: Repeat ABG Continue duoneb, budenoside, solumedrol, tiotroprium Communicated with medicine service for PT to do a 6 minute pulse oxymetry walk test today to test for desaturation Status: Acute (2) Acute exacerbation of CHF (congestive heart failure) Status: Acute (3) Chronic atrial fibrillation Status: Acute
[2017-01-13 11:20] LABS: LYMPH # 0.2 K/uL (1.0-4.3); MEAN CORPUSCULAR HEMOGLOBIN 26.2 pg (27.0-31.0); MEAN CORPUSCULAR HGB CONC 32.2 g/dL (33.0-37.0); MONO # 0.3 K/uL (0.0-0.8); RED CELL DISTRIBUTION WIDTH 19.7 % (11.5-14.5)
[2017-01-13 11:26] LABS: CHLORIDE 92 mmol/L (98-107)
[2017-01-13 11:27] LABS: BASO % 0.3 % (0.0-2.0); HEMATOCRIT 39.2 % (35.0-51.0); INR 3.1; LYMPH % 1.9 % (20.0-40.0); MEAN CELL VOLUME 81.2 fL (80.0-94.0); MEAN PLATELET VOLUME 8.7 fL (7.2-11.7); MONO % 3.1 % (0.0-10.0); PLATELET COUNT 190 K/uL (130-400); POTASSIUM 4.5 mmol/L (3.6-5.2); SODIUM 136 mmol/L (132-148)
[2017-01-13 11:29] LABS: ALB/GLOB RATIO 1.3 (1.0-2.1); ALKALINE PHOSPHATASE 91 U/L (38-126); ALT/SGPT 24 U/L (21-72); AST/SGOT 31 U/L (17-59); BILIRUBIN,TOTAL 0.8 mg/dL (0.2-1.3); BLOOD UREA NITROGEN 34 mg/dL (9-20); CARBON DIOXIDE 26 mmol/L (22-30); GFR AFRICAN-AMERICAN > 60; GLUCOSE,RANDOM 151 mg/dL (75-110)
[2017-01-13 11:30] LABS: CALCIUM 9.7 mg/dl (8.6-10.4)
[2017-01-13 11:33] LABS: WHITE BLOOD COUNT 10.5 K/uL (4.8-10.8)
[2017-01-13 11:54] LABS: NEUTROPHIL 89 % (50-75); TOTAL CELLS COUNTED 100
[2017-01-13 11:55] LABS: LARGE PLATELETS PRESENT
[2017-01-13] MEDS: Digoxin 125 mcg (0.125 mg) Tab PO SCH (18:00)
[2017-01-14] MEDS: Albuterol-Ipratrop 3 mg / 0.5 (3 ml) UD INH SCH ×4 (01:23→19:25)
[2017-01-14] MEDS: MethylPREDNISolone 40 mg Vial IVP SCH ×3 (06:12→21:04)
[2017-01-14] MEDS: Tiotropium 18 mcg Cap For Inhalation INH SCH (07:16)
[2017-01-14] MEDS: Budesonide 0.5 mg/2 ml Inhal Susp UD INH SCH ×2 (07:20→19:25)
--- NOTE | 2017-01-14 07:45 | CP.PCM.PN ---
<Lenny Adam - Last Filed: 01/14/17 22:50> Subjective - Date & Time of Evaluation Date of Evaluation: 01/14/17 Time of Evaluation: 07:15 - Subjective Subjective: PGY1 Medicine Note- Dr Otoole Patient seen and examined at bedside, resting comfortably, slept well. No overnight events per nursing. Patient less SOB while speaking today. PT performed desaturation test while ambulating yesterday - 82% on room air / 88% on 2L NC. Denies pain with ambulation, although he becomes very SOB. +BM, + urination. Denies f/c, dizziness, palpitations, cough, abdominal pain, n/v, d/c , or any additional complaints. Objective - Vital Signs/Intake and Output Vital Signs (last 24 hours): Temp Pulse Resp BP Pulse Ox 98 F 50 L 20 109/68 97 01/14/17 00:39 01/14/17 00:39 01/14/17 00:39 01/14/17 00:39 01/14/17 00:39 Intake and Output: 01/14/17 01/14/17 06:59 18:59 Intake Total 240 Output Total 600 Balance -360 - Medications Medications: Current Medications Albuterol/Ipratropium (Duoneb 3 Mg/0.5 Mg (3 Ml) Ud) 3 ml INH RQ6 [facility] Last Admin: 01/14/17 07:16 Dose: 3 ml Budesonide (Pulmicort Respules) 0.5 mg INH RQ12 [facility] Last Admin: 01/13/17 19:07 Dose: 0.5 mg Digoxin (Lanoxin) 0.125 mg PO DAILY@1800 [facility] Last Admin: 01/13/17 18:00 Dose: 0.125 mg Furosemide (Lasix) 40 mg IVP BID [facility] Last Admin: 01/13/17 19:05 Dose: 40 mg Lisinopril (Zestril) 10 mg PO DAILY [facility] Last Admin: 01/13/17 11:50 Dose: Not Given Methylprednisolone (Solu-Medrol) 40 mg IVP Q8 [facility] Last Admin: 01/14/17 06:12 Dose: 40 mg Pantoprazole Sodium (Protonix Ec Tab) 40 mg PO DAILY [facility] Last Admin: 01/13/17 09:22 Dose: 40 mg Rosuvastatin Calcium (Crestor) 10 mg PO HS [facility] Last Admin: 01/13/17 22:04 Dose: 10 mg Spironolactone (Aldactone) 25 mg PO DAILY [facility] Last Admin: 01/13/17 09:23 Dose: 25 mg Tiotropium [place] (Spiriva) 18 mcg INH RQ24 [facility] Last Admin: 01/14/17 07:16 Dose: 18 mcg - Labs Labs: 01/13/17 11:10 01/13/17 11:10 PT 35.3 SECONDS (9.7-12.2) H* D 01/13/17 11:10 INR 3.1 01/13/17 11:10 APTT 35 SECONDS (21-34) H D 01/13/17 11:10 - Additional Findings Additional findings: - Constitutional Appears: Non-toxic, No Acute Distress - Head Exam Head Exam: ATRAUMATIC - Eye Exam Eye Exam: EOMI - ENT Exam ENT Exam: Mucous Membranes Moist - Respiratory Exam Respiratory Exam: Decreased Breath Sounds, Wheezes (improving), Rhonchi (mid- lung), Respiratory Distress (SOB while speaking improved on NC). absent: Clear to Ausculation Bilateral -desaturates to 82% while walking, 88% with NC 2L - Cardiovascular Exam Cardiovascular Exam: REGULAR RHYTHM, +S1, +S2 - GI/Abdominal Exam GI & Abdominal Exam: Soft, Normal Bowel Sounds. absent: Tenderness - Extremities Exam Extremities Exam: Pedal Edema (b/l 1+ pitting to mid thigh). absent: Tenderness Additional comments: pedal pulses 2+ - Neurological Exam Neurological Exam: Alert, Awake, Oriented x3 b/l hand numbness / tingling today resolved - Psychiatric Exam Psychiatric exam: Normal Affect - Skin Skin Exam: Dry, Normal Color, Warm Tender to palpation at R sternal border, 2nd rib. Protrusion noted. Assessment and Plan - Assessment and Plan (Free Text) Assessment: 71 year old male with past medical history including OH, CAD with history of CABG and valve replacement 6-7 years ago. Reports worstenting SOB and dizziness with associated swelling of bilateral LE for past 2-3 days. Admits this is the first time he has experienced these symptoms. SOB is worse when he lays flat. -Discharge planning to [facility] once INR in 2.5-3.5 range and SOB is better controlled. Case working on Plan: Systolic dysfunction with acute on chronic heart failure Admit to telemetry, BNP 4560 on admission Consulted Cardiology, Dr. Arguelles - f/u recs -will attempt to obtain company of AICD for interrogation. -continue diuretic therapy. likely deconditioned. will benefit from rehab Lasix 40mg IV BID Digoxin 0.125mg Lisinopril 10mg daily Aldactone 25mg PO Daily patient with AICD, will check echo to determine EF CXR 01/03: mild cardiomegaly, mild pulmonary venous congestion. s/p sternotomy, aortic valve replacement, AICD H/O mitral valve replacement with mechanical valve Cardiac valve replacement 6-7yrs ago Consulted Cardiology, Dr. Arguelles - f/u recs -echocardiogram reviewed. valve leaflets are opening and functional. There is no signficant gradient across the valve. -recommend INR 2.5 to 3.5. STOP Lovenox 01/11 STOP Heparin Drip - cardiac protocol, with bolus (because patient is refusing blood draws) 01/07: PT/INR 1.3 01/08: PT/INR refused, Coumadin 10mg 01/09: PT/INR 1.5, Coumadin 10mg 01/10: PT/INR 2.0, Coumadin 10mg 01/11: PT/INR 2.4, Coumadin 7.5mg; patient received one more dose of Lovenox 80mg SC today, now discontinued as bridge complete. 01/12: PT/INR 2.5, Coumadin 7.5mg 01/13: PT/INR 3.1, Coumadin 5mg 01/14: PT/INR 3.7, Coumadin 5mg, f/u INR in am Chronic atrial fibrillation Consulted Cardiology, Dr. Arguelles - f/u recs -Rate controlled -echocardiogram reviewed. valve leaflets are opening and functional. There is no signficant gradient across the valve. -recommend INR 2.5 to 3.5. -See PT/INR trends above Coumadin as above STOP Lovenox 01/11 COPD (chronic obstructive pulmonary disease) -01/13: PT session: 98% O2 at 2L at rest, 96% room air at rest sitting, 82% room air during ambulation, 88% at 2 liter ambulation. -01/12: Walked 20 steps today down [place]uno, and patient became dizzy, SOB, and almost collapsed. - Solumedrol 40mg IVP Q8H [facility] (01/12) - Consulted Pulmonology, Dr. Cobb, f/u recs - Aware of HR in 140's and SOB after eating and low levels of exertion. -f/u ABG (not collected) -LDH 654H -HIV - negative -planning for home O2 - persistent shortness of breath - Patient with long history of smoking most likely has underlying COPD. Nebulizer treatment. Inhaled steroids. Spiriva. pulmonary function test as out pt CAD (coronary artery disease) Consulted Cardiology, Dr. Arguelles - f/u recs -Aware of HR in 140's and SOB after eating and low levels of exertion. -unknown graft status. no evidence of ischemia at present -No current angina History of OH (myocardial infarction) Crestor 10mg PO HS ROMIs negative x3 EKG paced Denies chest pain Electrolyte Imbalance Hyperkalemia - resolved Tachycardia 01/13: Patient becomes SOB very easily, desaturating to 82% while ambulating. Anytime he eats or gets up, HR climbs into 140's Continue Digoxin 0.125mg EKG in ER: sinus tachycardia at 100, paced, incomplete RBBB Discontinued cardizem drip of 5mg/h started in the ER Lower extremity edema LE Duplex - negative. see full report. Prophylactic measure Stopped lovenox 40u sc daily (bridging lovenox to Coumadin). protonix 40mg daily SCD contraindicated due to LE edema [All management as per Dr. Otoole] <Johnnie Otoole Jr. - Last Filed: 01/15/17 17:22> Objective - Vital Signs/Intake and Output Vital Signs (last 24 hours): Temp Pulse Resp BP Pulse Ox 97.6 F 89 20 104/66 100 01/15/17 16:57 01/15/17 16:57 01/15/17 16:57 01/15/17 16:57 01/15/17 16:57 Intake and Output: 01/15/17 01/15/17 06:59 18:59 Intake Total 300 480 Output Total 800 500 Balance -500 -20 - Medications Medications: Current Medications Albuterol/Ipratropium (Duoneb 3 Mg/0.5 Mg (3 Ml) Ud) 3 ml INH RQ6 [facility] Last Admin: 01/15/17 13:05 Dose: 3 ml Budesonide (Pulmicort Respules) 0.5 mg INH RQ12 [facility] Last Admin: 01/15/17 07:42 Dose: 0.5 mg Digoxin (Lanoxin) 0.125 mg PO DAILY@1800 [facility] Last Admin: 01/14/17 17:02 Dose: 0.125 mg Furosemide (Lasix) 40 mg IVP BID [facility] Last Admin: 01/15/17 09:15 Dose: 40 mg Guaifenesin (Mucinex [place]) 600 mg PO BID [facility] Last Admin: 01/15/17 10:11 Dose: 600 mg Lisinopril (Zestril) 10 mg PO DAILY [facility] Last Admin: 01/15/17 09:15 Dose: 10 mg Methylprednisolone (Solu-Medrol) 40 mg IVP Q8 [facility] Last Admin: 01/15/17 13:21 Dose: 40 mg Pantoprazole Sodium (Protonix Ec Tab) 40 mg PO DAILY [facility] Last Admin: 01/15/17 09:15 Dose: 40 mg Rosuvastatin Calcium (Crestor) 10 mg PO HS [facility] Last Admin: 01/14/17 21:04 Dose: 10 mg Spironolactone (Aldactone) 25 mg PO DAILY [facility] Last Admin: 01/15/17 09:15 Dose: 25 mg Tiotropium [place] (Spiriva) 18 mcg INH RQ24 [facility] Last Admin: 01/15/17 07:42 Dose: 18 mcg Warfarin Sodium (Coumadin) 5 mg PO 1800 [facility] Stop: 01/15/17 18:01 - Labs Labs: 01/15/17 11:10 01/15/17 11:10 PT 32.3 SECONDS (9.7-12.2) H* D 01/15/17 11:10 INR 2.8 D 01/15/17 11:10 APTT 31 SECONDS (21-34) D 01/15/17 11:10 Attending/Attestation - Attestation I have personally seen and examined this patient.: Yes I have fully participated in the care of the patient.: Yes I have reviewed all pertinent clinical information, including history, physical exam and plan: Yes Notes (Text): 01/15/17 17:22 Patient seen and examined with the resident. Reviewed resident note and agree with findings and plan of care. [ ]
--- NOTE | 2017-01-14 07:50 | CP.PCM.PN ---
Subjective - Date & Time of Evaluation Date of Evaluation: 01/14/17 Time of Evaluation: 07:40 - Subjective Subjective: patient denies chest pain. he had an episode of desaturation with ambulation. Objective - Vital Signs/Intake and Output Vital Signs (last 24 hours): Temp Pulse Resp BP Pulse Ox 98 F 50 L 20 109/68 97 01/14/17 00:39 01/14/17 00:39 01/14/17 00:39 01/14/17 00:39 01/14/17 00:39 Intake and Output: 01/14/17 01/14/17 06:59 18:59 Intake Total 240 Output Total 600 Balance -360 - Medications Medications: Current Medications Albuterol/Ipratropium (Duoneb 3 Mg/0.5 Mg (3 Ml) Ud) 3 ml INH RQ6 [facility] Last Admin: 01/14/17 07:16 Dose: 3 ml Budesonide (Pulmicort Respules) 0.5 mg INH RQ12 [facility] Last Admin: 01/13/17 19:07 Dose: 0.5 mg Digoxin (Lanoxin) 0.125 mg PO DAILY@1800 [facility] Last Admin: 01/13/17 18:00 Dose: 0.125 mg Furosemide (Lasix) 40 mg IVP BID [facility] Last Admin: 01/13/17 19:05 Dose: 40 mg Lisinopril (Zestril) 10 mg PO DAILY [facility] Last Admin: 01/13/17 11:50 Dose: Not Given Methylprednisolone (Solu-Medrol) 40 mg IVP Q8 [facility] Last Admin: 01/14/17 06:12 Dose: 40 mg Pantoprazole Sodium (Protonix Ec Tab) 40 mg PO DAILY [facility] Last Admin: 01/13/17 09:22 Dose: 40 mg Rosuvastatin Calcium (Crestor) 10 mg PO HS [facility] Last Admin: 01/13/17 22:04 Dose: 10 mg Spironolactone (Aldactone) 25 mg PO DAILY [facility] Last Admin: 01/13/17 09:23 Dose: 25 mg Tiotropium [place] (Spiriva) 18 mcg INH RQ24 [facility] Last Admin: 01/14/17 07:16 Dose: 18 mcg - Labs Labs: 01/13/17 11:10 01/13/17 11:10 PT 35.3 SECONDS (9.7-12.2) H* D 01/13/17 11:10 INR 3.1 01/13/17 11:10 APTT 35 SECONDS (21-34) H D 01/13/17 11:10 - Constitutional Appears: Non-toxic - Head Exam Head Exam: NORMAL INSPECTION - Eye Exam Eye Exam: Normal appearance - ENT Exam ENT Exam: Mucous Membranes Moist - Neck Exam Neck Exam: Full ROM - Respiratory Exam Respiratory Exam: Decreased Breath Sounds - Cardiovascular Exam Cardiovascular Exam: Irregular Rhythm - GI/Abdominal Exam GI & Abdominal Exam: Normal Bowel Sounds - Rectal Exam Rectal Exam: Deferred - Extremities Exam Extremities Exam: absent: Pedal Edema - Back Exam Back Exam: NORMAL INSPECTION - Neurological Exam Neurological Exam: Alert - Psychiatric Exam Psychiatric exam: Normal Affect - Skin Skin Exam: Normal Color Assessment and Plan (1) Systolic dysfunction with acute on chronic heart failure Assessment & Plan: will need continue diuretic therapy. likely deconditioned. will benefit from rehab Status: Acute (2) Chronic atrial fibrillation Assessment & Plan: maintain coumadin Status: Acute (3) CAD (coronary artery disease) Assessment & Plan: no current angina. Status: Acute (4) H/O mitral valve replacement with mechanical valve Assessment & Plan: goal INR 2.5-3.5 Status: Acute
[2017-01-14] MEDS: Pantoprazole 40 mg EC Tab PO SCH (09:32)
--- NOTE | 2017-01-14 11:32 | CP.PCM.PN ---
Subjective - Date & Time of Evaluation Date of Evaluation: 01/14/17 Time of Evaluation: 10:00 - Subjective Subjective: Patient was seen and examined at bedside. patient appeared to be in no acute distress. patient complains of occasional SOB that is worsened upon exertion and laying flat. Patient states that he no longer has cough or phlegm buildup. Walking desaturation test indicated 82% O2 saturation on room air, and 88% O2 saturation on 2L nasal canula. During the test, patient stated that he was extremely SOB Objective - Vital Signs/Intake and Output Vital Signs (last 24 hours): Temp Pulse Resp BP Pulse Ox 97.9 F 91 H 20 99/66 L 99 01/14/17 07:22 01/14/17 08:00 01/14/17 07:22 01/14/17 09:34 01/14/17 07:22 Intake and Output: 01/14/17 01/14/17 06:59 18:59 Intake Total 240 Output Total 600 Balance -360 - Medications Medications: Current Medications Albuterol/Ipratropium (Duoneb 3 Mg/0.5 Mg (3 Ml) Ud) 3 ml INH RQ6 [facility] Last Admin: 01/14/17 07:16 Dose: 3 ml Budesonide (Pulmicort Respules) 0.5 mg INH RQ12 [facility] Last Admin: 01/13/17 19:07 Dose: 0.5 mg Digoxin (Lanoxin) 0.125 mg PO DAILY@1800 [facility] Last Admin: 01/13/17 18:00 Dose: 0.125 mg Furosemide (Lasix) 40 mg IVP BID [facility] Last Admin: 01/14/17 09:34 Dose: Not Given Lisinopril (Zestril) 10 mg PO DAILY [facility] Last Admin: 01/14/17 09:32 Dose: 10 mg Methylprednisolone (Solu-Medrol) 40 mg IVP Q8 [facility] Last Admin: 01/14/17 06:12 Dose: 40 mg Pantoprazole Sodium (Protonix Ec Tab) 40 mg PO DAILY [facility] Last Admin: 01/14/17 09:32 Dose: 40 mg Rosuvastatin Calcium (Crestor) 10 mg PO HS [facility] Last Admin: 01/13/17 22:04 Dose: 10 mg Spironolactone (Aldactone) 25 mg PO DAILY [facility] Last Admin: 01/14/17 09:32 Dose: 25 mg Tiotropium [place] (Spiriva) 18 mcg INH RQ24 [facility] Last Admin: 01/14/17 07:16 Dose: 18 mcg - Labs Labs: 01/13/17 11:10 01/13/17 11:10 PT 35.3 SECONDS (9.7-12.2) H* D 01/13/17 11:10 INR 3.1 01/13/17 11:10 APTT 35 SECONDS (21-34) H D 01/13/17 11:10 - Constitutional Appears: Non-toxic, No Acute Distress - Head Exam Head Exam: NORMAL INSPECTION - Eye Exam Eye Exam: Normal appearance - ENT Exam ENT Exam: Mucous Membranes Moist - Respiratory Exam Respiratory Exam: Decreased Breath Sounds, Prolonged Expiratory Phase, Wheezes - Cardiovascular Exam Cardiovascular Exam: REGULAR RHYTHM, +S1, +S2 - Extremities Exam Extremities Exam: Pedal Edema - Neurological Exam Neurological Exam: Alert, Awake, Oriented x3 - Skin Skin Exam: Normal Color Assessment and Plan (1) COPD (chronic obstructive pulmonary disease) Assessment & Plan: Will need home oxygen Continue duoneb, prednisone, tiotroprium Follow up with outpatient treatment of COPD and CHF once discharged Status: Acute (2) Acute exacerbation of CHF (congestive heart failure) Status: Acute (3) Chronic atrial fibrillation Status: Acute
[2017-01-14 14:09] LABS: CHLORIDE 90 mmol/L (98-107); POTASSIUM 5.1 mmol/L (3.6-5.2)
[2017-01-14 14:10] LABS: INR 3.7
[2017-01-14 14:11] LABS: ALB/GLOB RATIO 1.3 (1.0-2.1); AST/SGOT 33 U/L (17-59); BILIRUBIN,TOTAL 0.5 mg/dL (0.2-1.3); CARBON DIOXIDE 28 mmol/L (22-30); GFR AFRICAN-AMERICAN > 60; TOTAL PROTEIN 7.6 g/dL (6.3-8.3)
[2017-01-14 14:12] LABS: ALKALINE PHOSPHATASE 80 U/L (38-126); ALT/SGPT 32 U/L (21-72); BLOOD UREA NITROGEN 38 mg/dL (9-20); CALCIUM 9.6 mg/dl (8.6-10.4); GLUCOSE,RANDOM 152 mg/dL (75-110); PHOSPHOROUS 3.2 mg/dL (2.5-4.5)
[2017-01-14 14:13] LABS: MAGNESIUM 2.1 mg/dL (1.6-2.3)
[2017-01-14 14:14] LABS: SODIUM 134 mmol/L (132-148)
[2017-01-14] MEDS: Digoxin 125 mcg (0.125 mg) Tab PO SCH (17:02)
[2017-01-15] MEDS: Albuterol-Ipratrop 3 mg / 0.5 (3 ml) UD INH SCH ×4 (01:17→19:29)
[2017-01-15] MEDS: MethylPREDNISolone 40 mg Vial IVP SCH ×3 (06:02→21:38)
[2017-01-15] MEDS: Tiotropium 18 mcg Cap For Inhalation INH SCH (07:42)
[2017-01-15] MEDS: Budesonide 0.5 mg/2 ml Inhal Susp UD INH SCH ×2 (07:42→19:29)
--- NOTE | 2017-01-15 07:44 | CP.PCM.PN ---
<Lenny Adam - Last Filed: 01/15/17 14:19> Subjective - Date & Time of Evaluation Date of Evaluation: 01/15/17 Time of Evaluation: 07:10 - Subjective Subjective: PGY1 Medicine Note- Dr Otoole Patient seen and examined at bedside, resting comfortably, slept well. No overnight events per nursing. Patient complains of worsening cough with green- tinged phlegm. Patient also states he has persistent orthopnea and SOB at rest. Patient states that the nasal cannula is not providing enough oxygen and needs something better. Patient complains of intermittent pressure in the chest; also states he experiences dizziness upon sitting/standing. Denies f/c, palpitations , n/v, d/c, or any additional complaints. Objective - Vital Signs/Intake and Output Vital Signs (last 24 hours): Temp Pulse Resp BP Pulse Ox 98.4 F 90 20 100/71 99 01/15/17 00:00 01/15/17 00:09 01/15/17 00:00 01/15/17 00:00 01/15/17 00:00 Intake and Output: 01/15/17 01/15/17 06:59 18:59 Intake Total 300 Output Total 800 Balance -500 - Medications Medications: Current Medications Albuterol/Ipratropium (Duoneb 3 Mg/0.5 Mg (3 Ml) Ud) 3 ml INH RQ6 [facility] Last Admin: 01/15/17 07:42 Dose: 3 ml Budesonide (Pulmicort Respules) 0.5 mg INH RQ12 [facility] Last Admin: 01/15/17 07:42 Dose: 0.5 mg Digoxin (Lanoxin) 0.125 mg PO DAILY@1800 [facility] Last Admin: 01/14/17 17:02 Dose: 0.125 mg Furosemide (Lasix) 40 mg IVP BID [facility] Last Admin: 01/14/17 17:02 Dose: 40 mg Lisinopril (Zestril) 10 mg PO DAILY [facility] Last Admin: 01/14/17 09:32 Dose: 10 mg Methylprednisolone (Solu-Medrol) 40 mg IVP Q8 [facility] Last Admin: 01/15/17 06:02 Dose: 40 mg Pantoprazole Sodium (Protonix Ec Tab) 40 mg PO DAILY [facility] Last Admin: 01/14/17 09:32 Dose: 40 mg Rosuvastatin Calcium (Crestor) 10 mg PO HS [facility] Last Admin: 01/14/17 21:04 Dose: 10 mg Spironolactone (Aldactone) 25 mg PO DAILY [facility] Last Admin: 01/14/17 09:32 Dose: 25 mg Tiotropium [place] (Spiriva) 18 mcg INH RQ24 [facility] Last Admin: 01/15/17 07:42 Dose: 18 mcg - Labs Labs: 01/13/17 11:10 01/14/17 13:54 PT 43.1 SECONDS (9.7-12.2) H* D 01/14/17 13:54 INR 3.7 01/14/17 13:54 APTT 39 SECONDS (21-34) H 01/14/17 13:54 - Additional Findings Additional findings: - Constitutional Appears: Non-toxic, No Acute Distress - Head Exam Head Exam: ATRAUMATIC - Eye Exam Eye Exam: EOMI - ENT Exam ENT Exam: Mucous Membranes Moist - Respiratory Exam Respiratory Exam: Decreased Breath Sounds, Wheezes, Rhonchi (mid-lung b/l), Respiratory Distress (orthopnea). absent: Clear to Ausculation Bilateral -desaturates to 82% while walking, 88% with NC 2L - Cardiovascular Exam Cardiovascular Exam: REGULAR RHYTHM, +S1, +S2 - GI/Abdominal Exam GI & Abdominal Exam: Soft, Normal Bowel Sounds, Tenderness (LUQ) - Extremities Exam Extremities Exam: Pedal Edema (b/l 1+ pitting to mid thigh). absent: Tenderness Additional comments: pedal pulses 2+ - Neurological Exam Neurological Exam: Alert, Awake, Oriented x3 b/l hand numbness / tingling resolved - Psychiatric Exam Psychiatric exam: Normal Affect - Skin Skin Exam: Dry, Normal Color, Warm Tender to palpation at R sternal border, 2nd rib. Protrusion noted. Assessment and Plan - Assessment and Plan (Free Text) Assessment: 71 year old male with past medical history including MS, CAD with history of CABG and valve replacement 6-7 years ago. Reports worstenting SOB and dizziness with associated swelling of bilateral LE for past 2-3 days. Admits this is the first time he has experienced these symptoms. SOB is worse when he lays flat. -Discharge planning to [facility] once INR in 2.5-3.5 range and SOB is better controlled. Case working on logistics. Plan: COPD (chronic obstructive pulmonary disease) -01/15-01/15: Patient complaining of SOB with exertion and orthopnea. Maintain Head of bed elevated 30 degrees. -01/13: PT session: 98% O2 at 2L at rest, 96% room air at rest sitting, 82% room air during ambulation, 88% at 2 liter ambulation. -01/12: Walked 20 steps today down bruno, and patient became dizzy, SOB, and almost collapsed. - Solumedrol 40mg IVP Q8H [facility] (01/12) - Consulted Pulmonology, Dr. Cobb, f/u recs - Aware of HR in 140's and SOB after eating and low levels of exertion. -f/u ABG (not collected) -LDH 654H -HIV - negative -planning for home O2 -persistent shortness of breath - Patient with long history of smoking most likely has underlying COPD. Nebulizer treatment. Inhaled steroids. Spiriva. PFT as out pt Cough, acute -01/15: patient developed productive cough with yellow sputum today. -Mucinex 600mg PO BID. Systolic dysfunction with acute on chronic heart failure Admit to telemetry, BNP 4560 on admission Consulted Cardiology, Dr. Arguelles - f/u recs -will attempt to obtain company of AICD for interrogation. -continue diuretic therapy. likely deconditioned. will benefit from rehab Lasix 40mg IV BID Digoxin 0.125mg Lisinopril 10mg daily Aldactone 25mg PO Daily patient with AICD, will check echo to determine EF CXR 01/03: mild cardiomegaly, mild pulmonary venous congestion. s/p sternotomy, aortic valve replacement, AICD H/O mitral valve replacement with mechanical valve Cardiac valve replacement 6-7yrs ago Consulted Cardiology, Dr. Arguelles - f/u recs -echocardiogram reviewed. valve leaflets are opening and functional. There is no signficant gradient across the valve. -recommend INR 2.5 to 3.5. STOP Lovenox 5 STOP Heparin Drip - cardiac protocol, with bolus (because patient is refusing blood draws) 01/07: PT/INR 1.3 32: PT/INR refused, Coumadin 10mg 01/09: PT/INR 1.5, Coumadin 10mg 01/10: PT/INR 2.0, Coumadin 10mg 01/11: PT/INR 2.4, Coumadin 7.5mg; patient received one more dose of Lovenox 80mg SC today, now discontinued as bridge complete. 01/12: PT/INR 2.5, Coumadin 7.5mg 01/13: PT/INR 3.1, Coumadin 5mg 01/14: PT/INR 3.7, Coumadin 5mg (stopped by pharmacy) 01/15: PT/INR 2.8, Coumadin 5mg, f/u inr Chronic atrial fibrillation Consulted Cardiology, Dr. Arguelles - f/u recs -Rate controlled -echocardiogram reviewed. valve leaflets are opening and functional. There is no signficant gradient across the valve. -recommend INR 2.5 to 3.5. -See PT/INR trends above Coumadin as above STOP Lovenox 01/11 CAD (coronary artery disease) Consulted Cardiology, Dr. Arguelles - f/u recs -Aware of HR in 140's and SOB after eating and low levels of exertion. -unknown graft status. no evidence of ischemia at present -No current angina History of MS (myocardial infarction) Crestor 10mg PO HS ROMIs negative x3 EKG paced Denies chest pain Transaminitis, acute - AST 77 / ALT 98 -> previously normal. - Continue to monitor Electrolyte Imbalance Hyperkalemia - resolved Tachycardia 01/13: Patient becomes SOB very easily, desaturating to 82% while ambulating. Anytime he eats or gets up, HR climbs into 140's Continue Digoxin 0.125mg EKG in ER: sinus tachycardia at 100, paced, incomplete RBBB Discontinued cardizem drip of 5mg/h started in the ER Lower extremity edema LE Duplex - negative. see full report. Prophylactic measure Stopped lovenox 40u sc daily (bridging lovenox to Coumadin). protonix 40mg daily SCD contraindicated due to LE edema [All management as per Dr. Otoloe] <Johnnie Otoole Jr. - Last Filed: 01/15/17 17:24> Objective - Vital Signs/Intake and Output Vital Signs (last 24 hours): Temp Pulse Resp BP Pulse Ox 97.6 F 89 20 104/66 100 01/15/17 16:57 01/15/17 16:57 01/15/17 16:57 01/15/17 16:57 01/15/17 16:57 Intake and Output: 01/15/17 01/15/17 06:59 18:59 Intake Total 300 480 Output Total 800 500 Balance -500 -20 - Medications Medications: Current Medications Albuterol/Ipratropium (Duoneb 3 Mg/0.5 Mg (3 Ml) Ud) 3 ml INH RQ6 [facility] Last Admin: 01/15/17 13:05 Dose: 3 ml Budesonide (Pulmicort Respules) 0.5 mg INH RQ12 [facility] Last Admin: 01/15/17 07:42 Dose: 0.5 mg Digoxin (Lanoxin) 0.125 mg PO DAILY@1800 [facility] Last Admin: 01/14/17 17:02 Dose: 0.125 mg Furosemide (Lasix) 40 mg IVP BID [facility] Last Admin: 01/15/17 09:15 Dose: 40 mg Guaifenesin (Mucinex La) 600 mg PO BID [facility] Last Admin: 01/15/17 10:11 Dose: 600 mg Lisinopril (Zestril) 10 mg PO DAILY [facility] Last Admin: 01/15/17 09:15 Dose: 10 mg Methylprednisolone (Solu-Medrol) 40 mg IVP Q8 [facility] Last Admin: 01/15/17 13:21 Dose: 40 mg Pantoprazole Sodium (Protonix Ec Tab) 40 mg PO DAILY [facility] Last Admin: 01/15/17 09:15 Dose: 40 mg Rosuvastatin Calcium (Crestor) 10 mg PO HS [facility] Last Admin: 01/14/17 21:04 Dose: 10 mg Spironolactone (Aldactone) 25 mg PO DAILY [facility] Last Admin: 01/15/17 09:15 Dose: 25 mg Tiotropium [place] (Spiriva) 18 mcg INH RQ24 [facility] Last Admin: 01/15/17 07:42 Dose: 18 mcg Warfarin Sodium (Coumadin) 5 mg PO 1800 [facility] Stop: 01/15/17 18:01 - Labs Labs: 01/15/17 11:10 01/15/17 11:10 PT 32.3 SECONDS (9.7-12.2) H* D 01/15/17 11:10 INR 2.8 D 01/15/17 11:10 APTT 31 SECONDS (21-34) D 01/15/17 11:10 Attending/Attestation - Attestation I have personally seen and examined this patient.: Yes I have fully participated in the care of the patient.: Yes I have reviewed all pertinent clinical information, including history, physical exam and plan: Yes Notes (Text): 01/15/17 17:24 Patient seen and examined with the resident. Reviewed resident note and agree with findings and plan of care. [ ]
[2017-01-15] MEDS: Pantoprazole 40 mg EC Tab PO SCH (09:15)
[2017-01-15] MEDS: guaiFENesin 600 mg ER Tab PO SCH ×2 (10:11→18:10)
--- NOTE | 2017-01-15 11:13 | CP.PCM.PN ---
Objective - Vital Signs/Intake and Output Vital Signs (last 24 hours): Temp Pulse Resp BP Pulse Ox 98.5 F 94 H 20 116/69 100 01/15/17 08:11 01/15/17 08:11 01/15/17 08:11 01/15/17 09:15 01/15/17 08:11 Intake and Output: 01/15/17 01/15/17 06:59 18:59 Intake Total 300 Output Total 800 Balance -500 - Medications Medications: Current Medications Albuterol/Ipratropium (Duoneb 3 Mg/0.5 Mg (3 Ml) Ud) 3 ml INH RQ6 [facility] Last Admin: 01/15/17 07:42 Dose: 3 ml Budesonide (Pulmicort Respules) 0.5 mg INH RQ12 [facility] Last Admin: 01/15/17 07:42 Dose: 0.5 mg Digoxin (Lanoxin) 0.125 mg PO DAILY@1800 [facility] Last Admin: 01/14/17 17:02 Dose: 0.125 mg Furosemide (Lasix) 40 mg IVP BID [facility] Last Admin: 01/15/17 09:15 Dose: 40 mg Guaifenesin (Mucinex La) 600 mg PO BID [facility] Last Admin: 01/15/17 10:11 Dose: 600 mg Lisinopril (Zestril) 10 mg PO DAILY [facility] Last Admin: 01/15/17 09:15 Dose: 10 mg Methylprednisolone (Solu-Medrol) 40 mg IVP Q8 [facility] Last Admin: 01/15/17 06:02 Dose: 40 mg Pantoprazole Sodium (Protonix Ec Tab) 40 mg PO DAILY [facility] Last Admin: 01/15/17 09:15 Dose: 40 mg Rosuvastatin Calcium (Crestor) 10 mg PO HS [facility] Last Admin: 01/14/17 21:04 Dose: 10 mg Spironolactone (Aldactone) 25 mg PO DAILY [facility] Last Admin: 01/15/17 09:15 Dose: 25 mg Tiotropium [place] (Spiriva) 18 mcg INH RQ24 [facility] Last Admin: 01/15/17 07:42 Dose: 18 mcg - Labs Labs: 01/13/17 11:10 01/14/17 13:54 PT 43.1 SECONDS (9.7-12.2) H* D 01/14/17 13:54 INR 3.7 01/14/17 13:54 APTT 39 SECONDS (21-34) H 01/14/17 13:54 Assessment and Plan (1) COPD (chronic obstructive pulmonary disease) Status: Acute (2) Acute exacerbation of CHF (congestive heart failure) Status: Acute (3) Chronic atrial fibrillation Status: Acute
[2017-01-15 11:22] LABS: HEMATOCRIT 37.9 % (35.0-51.0); LYMPH # 0.2 K/uL (1.0-4.3); MEAN CELL VOLUME 81.8 fL (80.0-94.0); MEAN CORPUSCULAR HEMOGLOBIN 26.4 pg (27.0-31.0); MEAN CORPUSCULAR HGB CONC 32.3 g/dL (33.0-37.0); MEAN PLATELET VOLUME 8.9 fL (7.2-11.7); MONO # 0.5 K/uL (0.0-0.8); MONO % 4.6 % (0.0-10.0); PLATELET COUNT 179 K/uL (130-400); RED CELL DISTRIBUTION WIDTH 18.8 % (11.5-14.5); WHITE BLOOD COUNT 10.4 K/uL (4.8-10.8)
[2017-01-15 11:37] LABS: INR 2.8
[2017-01-15 11:47] LABS: CHLORIDE 92 mmol/L (98-107); NEUTROPHIL 95 % (50-75); TOTAL CELLS COUNTED 100
[2017-01-15 11:48] LABS: POTASSIUM 4.4 mmol/L (3.6-5.2); SODIUM 135 mmol/L (132-148)
[2017-01-15 11:50] LABS: ALB/GLOB RATIO 1.2 (1.0-2.1); ALKALINE PHOSPHATASE 76 U/L (38-126); AST/SGOT 77 U/L (17-59); BILIRUBIN,TOTAL 0.5 mg/dL (0.2-1.3); CARBON DIOXIDE 29 mmol/L (22-30); GFR AFRICAN-AMERICAN > 60; TOTAL PROTEIN 7.2 g/dL (6.3-8.3)
[2017-01-15 11:51] LABS: ALT/SGPT 98 U/L (21-72); BLOOD UREA NITROGEN 42 mg/dL (9-20); CALCIUM 9.4 mg/dl (8.6-10.4); GLUCOSE,RANDOM 147 mg/dL (75-110); MAGNESIUM 2.1 mg/dL (1.6-2.3); PHOSPHOROUS 2.9 mg/dL (2.5-4.5)
[2017-01-15] MEDS: Digoxin 125 mcg (0.125 mg) Tab PO SCH (18:10)
[2017-01-16] MEDS: Albuterol-Ipratrop 3 mg / 0.5 (3 ml) UD INH SCH ×4 (01:11→19:17)
[2017-01-16] MEDS: MethylPREDNISolone 40 mg Vial IVP SCH ×3 (06:05→22:09)
--- NOTE | 2017-01-16 07:41 | CP.PCM.PN ---
<Lenny Adam - Last Filed: 01/16/17 20:41> Subjective - Date & Time of Evaluation Date of Evaluation: 01/16/17 Time of Evaluation: 07:05 - Subjective Subjective: PGY1 Medicine Note- Dr Sydnie JAIN CALLED AT 12:35. Patient in acute distress, with SOB which was not far from his baseline. BP in 80's/50's, tachychardic, saturating at 98% on 3L NC. His typical baseline has been 90/60's - 120/70's. Patient AAO x3. Dr. Otoole was contacted, and patient was bolused 500cc of NS, stat EKG showed paced tachycardia, stat CXR ordered showing mild hazy opacities in lung bases with mild increase in pulmonary vascular congestion. ICU eval was called - Dr. Howard ordered BIPAP 10/5 at 30%. ProBNP 4070H and KACY negative. Patient stabilized, however later refused BIPAP and refused ABG. Patient seen and examined at bedside in the AM, resting comfortably, slept well. Nursing staff noted BP of 80/52 yesterday at 8PM; lasix held. Patient still complains of worsening cough with yellow phlegm. Patient also states he has persistent orthopnea and SOB at rest. Patient states that the nasal cannula is not providing enough oxygen, especially with the nasal congestion he is now experiencing. Patient complains of intermittent pressure in the chest, localized to the right side, which is largely unchanged since admission. Patient also complains of dizziness upon sitting/standing. Denies f/c, palpitations, n/v, d/c, or any additional complaints. Objective - Vital Signs/Intake and Output Vital Signs (last 24 hours): Temp Pulse Resp BP Pulse Ox 97.6 F 93 H 20 91/53 L 100 01/15/17 23:20 01/15/17 23:30 01/15/17 23:20 01/15/17 23:20 01/15/17 23:20 - Medications Medications: Current Medications Albuterol/Ipratropium (Duoneb 3 Mg/0.5 Mg (3 Ml) Ud) 3 ml INH RQ6 [facility] Last Admin: 01/16/17 01:11 Dose: Not Given Budesonide (Pulmicort Respules) 0.5 mg INH RQ12 [facility] Last Admin: 01/15/17 19:29 Dose: 0.5 mg Digoxin (Lanoxin) 0.125 mg PO DAILY@1800 [facility] Last Admin: 01/15/17 18:10 Dose: 0.125 mg Furosemide (Lasix) 40 mg IVP BID [facility] Last Admin: 01/15/17 18:05 Dose: Not Given Guaifenesin (Mucinex La) 600 mg PO BID [facility] Last Admin: 01/15/17 18:10 Dose: 600 mg Lisinopril (Zestril) 10 mg PO DAILY [facility] Last Admin: 01/15/17 09:15 Dose: 10 mg Methylprednisolone (Solu-Medrol) 40 mg IVP Q8 [facility] Last Admin: 01/16/17 06:05 Dose: 40 mg Pantoprazole Sodium (Protonix Ec Tab) 40 mg PO DAILY [facility] Last Admin: 01/15/17 09:15 Dose: 40 mg Rosuvastatin Calcium (Crestor) 10 mg PO HS [facility] Last Admin: 01/15/17 21:38 Dose: 10 mg Spironolactone (Aldactone) 25 mg PO DAILY [facility] Last Admin: 01/15/17 09:15 Dose: 25 mg Tiotropium [place] (Spiriva) 18 mcg INH RQ24 [facility] Last Admin: 01/15/17 07:42 Dose: 18 mcg - Labs Labs: 01/15/17 11:10 01/15/17 11:10 PT 32.3 SECONDS (9.7-12.2) H* D 01/15/17 11:10 INR 2.8 D 01/15/17 11:10 APTT 31 SECONDS (21-34) D 01/15/17 11:10 - Additional Findings Additional findings: - Constitutional Appears: Non-toxic, No Acute Distress - Head Exam Head Exam: ATRAUMATIC - Eye Exam Eye Exam: EOMI - ENT Exam ENT Exam: Mucous Membranes Moist - Respiratory Exam Respiratory Exam: Decreased Breath Sounds, Wheezes, Rhonchi (mid/upper zones b/l ), Respiratory Distress (orthopnea). -desaturates to 82% while walking, 88% with NC 2L -accessory muscle use - Cardiovascular Exam Cardiovascular Exam: REGULAR RHYTHM, +S1, +S2 - GI/Abdominal Exam GI & Abdominal Exam: Soft, Normal Bowel Sounds, Tenderness (LUQ, mild) - Extremities Exam Extremities Exam: Pedal Edema (b/l 1+ pitting to mid thigh). absent: Tenderness Additional comments: pedal pulses 2+ - Neurological Exam Neurological Exam: Alert, Awake, Oriented x3 b/l hand numbness / tingling returned today - Psychiatric Exam Psychiatric exam: Normal Affect - Skin Skin Exam: Dry, Normal Color, Warm Tender to palpation at R sternal border, 2nd rib. Protrusion noted. Assessment and Plan - Assessment and Plan (Free Text) Assessment: 71 year old male with past medical history including IA, CAD with history of CABG and valve replacement 6-7 years ago. Reports worstenting SOB and dizziness with associated swelling of bilateral LE for past 2-3 days. Admits this is the first time he has experienced these symptoms. SOB is worse when he lays flat. -Discharge planning to [facility] once INR in 2.5-3.5 range and SOB is better controlled. Case working on logistics. Plan: COPD (chronic obstructive pulmonary disease) -01/16: RAPID called due to SOB. BP 80/50's. Bolused 500cc NS. Ordered BIPAP and ABG, however patient refused. Placed back on NC 3L. -01/14-01/15: Patient complaining of SOB with exertion and orthopnea. Maintain Head of bed elevated 30 degrees. -01/13: PT session: 98% O2 at 2L at rest, 96% room air at rest sitting, 82% room air during ambulation, 88% at 2 liter ambulation. -01/12: Walked 20 steps today down bruno, and patient became dizzy, SOB, and almost collapsed. - Solumedrol 40mg IVP Q8H [facility] (01/12) - Consulted Pulmonology, Dr. Cobb, f/u recs - Aware of HR in 140's and SOB after eating and low levels of exertion. -f/u ABG (not collected) -LDH 654H -HIV - negative -planning for home O2 -persistent shortness of breath - Patient with long history of smoking most likely has underlying COPD. Nebulizer treatment. Inhaled steroids. Spiriva. PFT as out pt Cough, acute -01/15: patient developed productive cough with yellow sputum today. -Mucinex 600mg PO BID. Systolic dysfunction with acute on chronic heart failure -01/16: RAPID called due to SOB. BP 80/50's. Bolused 500cc NS. Ordered BIPAP and ABG, however patient refused. Placed back on NC 3L. ProBNP 4070H (less than # on admission) and KACY negative. -01/16: Decrease to Lasix 40mg PO daily (was BID). Admit to telemetry, BNP 4560 on admission Consulted Cardiology, Dr. Arguelles - f/u recs -will attempt to obtain company of AICD for interrogation. -continue diuretic therapy. likely deconditioned. will benefit from rehab - EF 10-15%, mechanical MV- no regurg, tricuspid regurg. see full report Digoxin 0.125mg Lisinopril 10mg daily Aldactone 25mg PO Daily patient with AICD, will check echo to determine EF CXR 01/03: mild cardiomegaly, mild pulmonary venous congestion. s/p sternotomy, aortic valve replacement, AICD H/O mitral valve replacement with mechanical valve Cardiac valve replacement 6-7yrs ago Consulted Cardiology, Dr. Arguelles - f/u recs -echocardiogram reviewed. valve leaflets are opening and functional. There is no signficant gradient across the valve. -recommend INR 2.5 to 3.5. STOP Lovenox 3/5 STOP Heparin Drip - cardiac protocol, with bolus (because patient is refusing blood draws) 01/07: PT/INR 1.3 01/08: PT/INR refused, Coumadin 10mg 01/09: PT/INR 1.5, Coumadin 10mg 01/10: PT/INR 2.0, Coumadin 10mg 01/11: PT/INR 2.4, Coumadin 7.5mg; patient received one more dose of Lovenox 80mg SC today, now discontinued as bridge complete. 01/12: PT/INR 2.5, Coumadin 7.5mg 01/13: PT/INR 3.1, Coumadin 5mg 01/14: PT/INR 3.7, Coumadin 5mg (stopped by pharmacy) 01/15: PT/INR 2.8, Coumadin 5mg 01/16: PT/INR 2.6, Coumadin 4mg, f/u INR am Chronic atrial fibrillation Consulted Cardiology, Dr. Arguelles - f/u recs -Rate controlled -echocardiogram reviewed. valve leaflets are opening and functional. There is no signficant gradient across the valve. -recommend INR 2.5 to 3.5. -See PT/INR trends above Coumadin as above STOP Lovenox 3/5 CAD (coronary artery disease) Consulted Cardiology, Dr. Arguelles - f/u recs -Aware of HR in 140's and SOB after eating and low levels of exertion. -unknown graft status. no evidence of ischemia at present -No current angina History of IA (myocardial infarction) Crestor 10mg PO HS ROMIs negative x3 EKG paced Denies chest pain Transaminitis, acute 01/16: AST 90 / ALT 164 - increasing -> hold Crestor tonight. - AST 77 / ALT 98 -> previously normal. - Continue to monitor Electrolyte Imbalance Hyperkalemia - resolved Tachycardia 01/13: Patient becomes SOB very easily, desaturating to 82% while ambulating. Anytime he eats or gets up, HR climbs into 140's Continue Digoxin 0.125mg EKG in ER: sinus tachycardia at 100, paced, incomplete RBBB Discontinued cardizem drip of 5mg/h started in the ER Lower extremity edema LE Duplex - negative. see full report. Prophylactic measure Stopped lovenox 40u sc daily (bridging lovenox to Coumadin). protonix 40mg daily SCD contraindicated due to LE edema [All management as per Dr. Otoole] <Johnnie Otoole Jr. - Last Filed: 01/18/17 19:52> Objective - Vital Signs/Intake and Output Vital Signs (last 24 hours): Temp Pulse Resp BP Pulse Ox 97.6 F 57 L 20 94/57 L 98 01/18/17 15:43 01/18/17 15:43 01/18/17 15:43 01/18/17 15:43 01/18/17 15:43 - Medications Medications: Current Medications Albuterol/Ipratropium (Duoneb 3 Mg/0.5 Mg (3 Ml) Ud) 3 ml INH RQ6 [facility] Last Admin: 01/18/17 19:25 Dose: 3 ml Budesonide (Pulmicort Respules) 0.5 mg INH RQ12 [facility] Last Admin: 01/18/17 19:25 Dose: 0.5 mg Digoxin (Lanoxin) 0.125 mg PO DAILY@1800 [facility] Last Admin: 01/18/17 18:07 Dose: 0.125 mg Furosemide (Lasix) 40 mg IVP DAILY [facility] Last Admin: 01/18/17 10:32 Dose: 40 mg Guaifenesin (Mucinex La) 600 mg PO BID [facility] Last Admin: 01/18/17 18:07 Dose: 600 mg Lisinopril (Zestril) 10 mg PO DAILY [facility] Last Admin: 01/18/17 10:32 Dose: 10 mg Methylprednisolone (Solu-Medrol) 40 mg IVP Q8 [facility] Last Admin: 01/18/17 13:23 Dose: 40 mg Pantoprazole Sodium (Protonix Ec Tab) 40 mg PO DAILY [facility] Last Admin: 01/18/17 10:32 Dose: 40 mg Rosuvastatin Calcium (Crestor) 10 mg PO HS [facility] Last Admin: 01/17/17 22:41 Dose: 10 mg Spironolactone (Aldactone) 25 mg PO DAILY [facility] Last Admin: 01/18/17 10:32 Dose: 25 mg Tiotropium [place] (Spiriva) 18 mcg INH RQ24 [facility] Last Admin: 01/18/17 08:29 Dose: 18 mcg - Labs Labs: 01/18/17 10:50 01/18/17 10:50 PT 25.6 SECONDS (9.7-12.2) H D 01/18/17 10:50 INR 2.3 01/18/17 10:50 APTT 29 SECONDS (21-34) 01/18/17 10:50 Attending/Attestation - Attestation I have personally seen and examined this patient.: Yes I have fully participated in the care of the patient.: Yes I have reviewed all pertinent clinical information, including history, physical exam and plan: Yes Notes (Text): 01/18/17 19:52 Patient seen and examined with the resident. Reviewed resident note and agree with findings and plan of care. [ ]
[2017-01-16] MEDS: Budesonide 0.5 mg/2 ml Inhal Susp UD INH SCH ×2 (09:16→19:17)
[2017-01-16] MEDS: Tiotropium 18 mcg Cap For Inhalation INH SCH (09:16)
[2017-01-16] MEDS: Pantoprazole 40 mg EC Tab PO SCH (09:28)
[2017-01-16] MEDS: guaiFENesin 600 mg ER Tab PO SCH ×2 (09:28→18:57)
--- NOTE | 2017-01-16 10:14 | CP.PCM.PN ---
Subjective - Date & Time of Evaluation Date of Evaluation: 01/16/17 Time of Evaluation: 09:10 - Subjective Subjective: Pt seen and examined at bedside. Pt laying in bed with headrest at 30 degrees. Pt continues to complain of SOB, but symptoms improve on nebulizer treatment and supplemental oxygen. Pt denies chest pain, but admits to occasional wheezing. S/P rapid response, placed on BIPAP Objective - Vital Signs/Intake and Output Vital Signs (last 24 hours): Temp Pulse Resp BP Pulse Ox 97.5 F L 80 20 102/68 100 01/16/17 07:20 01/16/17 08:38 01/16/17 07:20 01/16/17 09:28 01/16/17 07:20 - Medications Medications: Current Medications Albuterol/Ipratropium (Duoneb 3 Mg/0.5 Mg (3 Ml) Ud) 3 ml INH RQ6 [facility] Last Admin: 01/16/17 09:16 Dose: 3 ml Budesonide (Pulmicort Respules) 0.5 mg INH RQ12 [facility] Last Admin: 01/16/17 09:16 Dose: 0.5 mg Digoxin (Lanoxin) 0.125 mg PO DAILY@1800 [facility] Last Admin: 01/15/17 18:10 Dose: 0.125 mg Furosemide (Lasix) 40 mg IVP BID [facility] Last Admin: 01/16/17 09:28 Dose: 40 mg Guaifenesin (Mucinex La) 600 mg PO BID [facility] Last Admin: 01/16/17 09:28 Dose: 600 mg Lisinopril (Zestril) 10 mg PO DAILY [facility] Last Admin: 01/16/17 09:28 Dose: 10 mg Methylprednisolone (Solu-Medrol) 40 mg IVP Q8 [facility] Last Admin: 01/16/17 06:05 Dose: 40 mg Pantoprazole Sodium (Protonix Ec Tab) 40 mg PO DAILY [facility] Last Admin: 01/16/17 09:28 Dose: 40 mg Rosuvastatin Calcium (Crestor) 10 mg PO HS [facility] Last Admin: 01/15/17 21:38 Dose: 10 mg Spironolactone (Aldactone) 25 mg PO DAILY [facility] Last Admin: 01/16/17 09:27 Dose: 25 mg Tiotropium [place] (Spiriva) 18 mcg INH RQ24 [facility] Last Admin: 01/16/17 09:16 Dose: 18 mcg - Labs Labs: 01/15/17 11:10 01/15/17 11:10 PT 32.3 SECONDS (9.7-12.2) H* D 01/15/17 11:10 INR 2.8 D 01/15/17 11:10 APTT 31 SECONDS (21-34) D 01/15/17 11:10 - Constitutional Appears: No Acute Distress - Head Exam Head Exam: ATRAUMATIC, NORMOCEPHALIC - Eye Exam Eye Exam: Normal appearance Pupil Exam: NORMAL ACCOMODATION - ENT Exam ENT Exam: Mucous Membranes Moist - Respiratory Exam Respiratory Exam: Wheezes (bilateral, mild), NORMAL BREATHING PATTERN. absent: Prolonged Expiratory Phase, Rales, Rhonchi, Respiratory Distress - Cardiovascular Exam Cardiovascular Exam: REGULAR RHYTHM, +S1, +S2 - Neurological Exam Neurological Exam: Alert, Awake, Oriented x3 - Psychiatric Exam Psychiatric exam: Normal Affect, Normal Mood - Skin Skin Exam: Dry, Intact, Normal Color, Warm Assessment and Plan (1) COPD (chronic obstructive pulmonary disease) Assessment & Plan: Continue duonebs, prednisone, tiotroprium, bipap, F/U ABG Recommend outpatient treatment followup for COPD and CHF once discharged Needs home oxygen Status: Acute (2) Acute exacerbation of CHF (congestive heart failure) Status: Acute (3) Chronic atrial fibrillation Status: Acute
[2017-01-16 11:06] LABS: BASO % 0.1 % (0.0-2.0); HEMATOCRIT 36.7 % (35.0-51.0); LYMPH # 0.1 K/uL (1.0-4.3); LYMPH % 1.6 % (20.0-40.0); MEAN CELL VOLUME 81.5 fL (80.0-94.0); MEAN CORPUSCULAR HEMOGLOBIN 26.4 pg (27.0-31.0); MEAN CORPUSCULAR HGB CONC 32.4 g/dL (33.0-37.0); MEAN PLATELET VOLUME 8.8 fL (7.2-11.7); MONO # 0.4 K/uL (0.0-0.8); MONO % 5.2 % (0.0-10.0); PLATELET COUNT 167 K/uL (130-400); RED CELL DISTRIBUTION WIDTH 18.9 % (11.5-14.5); WHITE BLOOD COUNT 7.9 K/uL (4.8-10.8)
[2017-01-16 11:27] LABS: INR 2.5
[2017-01-16 11:39] LABS: NEUTROPHIL 94 % (50-75); TOTAL CELLS COUNTED 100
[2017-01-16] MEDS ORDERED: Sodium Chloride 0.9% 500 ML IV ONE (12:48)
[2017-01-16 13:17] LABS: CHLORIDE 92 mmol/L (98-107)
[2017-01-16 13:18] LABS: POTASSIUM 4.4 mmol/L (3.6-5.2); SODIUM 135 mmol/L (132-148)
[2017-01-16 13:21] LABS: ALB/GLOB RATIO 1.1 (1.0-2.1); ALKALINE PHOSPHATASE 75 U/L (38-126); ALT/SGPT 164 U/L (21-72); AST/SGOT 90 U/L (17-59); BILIRUBIN,TOTAL 0.5 mg/dL (0.2-1.3); BLOOD UREA NITROGEN 43 mg/dL (9-20); CALCIUM 9.5 mg/dl (8.6-10.4); CARBON DIOXIDE 30 mmol/L (22-30); GFR AFRICAN-AMERICAN > 60; GLUCOSE,RANDOM 179 mg/dL (75-110); INR 2.6; PHOSPHOROUS 2.5 mg/dL (2.5-4.5); TOTAL PROTEIN 6.8 g/dL (6.3-8.3)
[2017-01-16 13:22] LABS: MAGNESIUM 2.2 mg/dL (1.6-2.3)
--- NOTE | 2017-01-16 14:10 | RAD ---
HISTORY: hypotension, SOB COMPARISON: 01/03/2017 FINDINGS: LUNGS: Mild hazy opacities in the lung bases. Mild increased pulmonary vascular congestion. PLEURA: No significant pleural effusion identified, no pneumothorax apparent. CARDIOVASCULAR: Enlarged cardiomediastinal silhouette, stable. OSSEOUS STRUCTURES: No significant abnormalities. VISUALIZED UPPER ABDOMEN: Upper abdomen is suboptimally evaluated. OTHER FINDINGS: Midline sternotomy wires and surgical clips along the left heart border noted. AICD. IMPRESSION: Mild hazy opacities in the lung bases. Mild increased pulmonary vascular congestion.
[2017-01-16] MEDS: Digoxin 125 mcg (0.125 mg) Tab PO SCH (18:57)
--- NOTE | 2017-01-16 20:17 | CP.PCM.PN ---
Objective - Vital Signs/Intake and Output Vital Signs (last 24 hours): Temp Pulse Resp BP Pulse Ox 98.5 F 84 20 93/58 L 99 01/16/17 16:55 01/16/17 16:55 01/16/17 16:55 01/16/17 16:55 01/16/17 16:55 Intake and Output: 01/16/17 01/17/17 18:59 06:59 Intake Total 800 Output Total 900 Balance -100 - Medications Medications: Current Medications Albuterol/Ipratropium (Duoneb 3 Mg/0.5 Mg (3 Ml) Ud) 3 ml INH RQ6 [facility] Last Admin: 01/16/17 19:17 Dose: 3 ml Budesonide (Pulmicort Respules) 0.5 mg INH RQ12 [facility] Last Admin: 01/16/17 19:17 Dose: 0.5 mg Digoxin (Lanoxin) 0.125 mg PO DAILY@1800 [facility] Last Admin: 01/16/17 18:57 Dose: 0.125 mg Furosemide (Lasix) 40 mg IVP DAILY [facility] Guaifenesin (Mucinex La) 600 mg PO BID [facility] Last Admin: 01/16/17 18:57 Dose: 600 mg Lisinopril (Zestril) 10 mg PO DAILY [facility] Last Admin: 01/16/17 09:28 Dose: 10 mg Methylprednisolone (Solu-Medrol) 40 mg IVP Q8 [facility] Last Admin: 01/16/17 13:17 Dose: 40 mg Pantoprazole Sodium (Protonix Ec Tab) 40 mg PO DAILY [facility] Last Admin: 01/16/17 09:28 Dose: 40 mg Rosuvastatin Calcium (Crestor) 10 mg PO HS [facility] Last Admin: 01/15/17 21:38 Dose: 10 mg Spironolactone (Aldactone) 25 mg PO DAILY [facility] Last Admin: 01/16/17 09:27 Dose: 25 mg Tiotropium [place] (Spiriva) 18 mcg INH RQ24 [facility] Last Admin: 01/16/17 09:16 Dose: 18 mcg - Labs Labs: 01/16/17 10:55 01/16/17 13:03 PT 30.2 SECONDS (9.7-12.2) H* 01/16/17 13:03 INR 2.6 01/16/17 13:03 APTT 33 SECONDS (21-34) 01/16/17 10:55
--- NOTE | 2017-01-16 20:21 | CP.PCM.PN ---
Subjective - Date & Time of Evaluation Date of Evaluation: 01/16/17 Time of Evaluation: 10:30 - Subjective Subjective: Patient is a 71 year old male with PMH CAD, s/p CABG (graft status unknown), ischemic cardiomyopathy s/p AICD, mechnical MVR who presents with dyspnea. The patient's previous cardiac care was in [place]. He was noted to have progressive dyspnea for one week. The patient denies chest pain. It is unclear how compliant patient has been with medical therapy. Pt acutely dyspnic with accesory muscle use on exam. Rhonchi and wheezing noted. unable to complete sentences. Rn alerted, resp treatment initiated. EKG to follow. Objective - Vital Signs/Intake and Output Vital Signs (last 24 hours): Temp Pulse Resp BP Pulse Ox 98.5 F 84 20 93/58 L 99 01/16/17 16:55 01/16/17 16:55 01/16/17 16:55 01/16/17 16:55 01/16/17 16:55 Intake and Output: 01/16/17 01/17/17 18:59 06:59 Intake Total 800 Output Total 900 Balance -100 - Medications Medications: Current Medications Albuterol/Ipratropium (Duoneb 3 Mg/0.5 Mg (3 Ml) Ud) 3 ml INH RQ6 [facility] Last Admin: 01/16/17 19:17 Dose: 3 ml Budesonide (Pulmicort Respules) 0.5 mg INH RQ12 [facility] Last Admin: 01/16/17 19:17 Dose: 0.5 mg Digoxin (Lanoxin) 0.125 mg PO DAILY@1800 [facility] Last Admin: 01/16/17 18:57 Dose: 0.125 mg Furosemide (Lasix) 40 mg IVP DAILY [facility] Guaifenesin (Mucinex La) 600 mg PO BID [facility] Last Admin: 01/16/17 18:57 Dose: 600 mg Lisinopril (Zestril) 10 mg PO DAILY [facility] Last Admin: 01/16/17 09:28 Dose: 10 mg Methylprednisolone (Solu-Medrol) 40 mg IVP Q8 [facility] Last Admin: 01/16/17 13:17 Dose: 40 mg Pantoprazole Sodium (Protonix Ec Tab) 40 mg PO DAILY [facility] Last Admin: 01/16/17 09:28 Dose: 40 mg Rosuvastatin Calcium (Crestor) 10 mg PO HS [facility] Last Admin: 01/15/17 21:38 Dose: 10 mg Spironolactone (Aldactone) 25 mg PO DAILY [facility] Last Admin: 01/16/17 09:27 Dose: 25 mg Tiotropium [place] (Spiriva) 18 mcg INH RQ24 [facility] Last Admin: 01/16/17 09:16 Dose: 18 mcg - Labs Labs: 01/16/17 10:55 01/16/17 13:03 PT 30.2 SECONDS (9.7-12.2) H* 01/16/17 13:03 INR 2.6 01/16/17 13:03 APTT 33 SECONDS (21-34) 01/16/17 10:55 - Constitutional Appears: Well - Head Exam Head Exam: ATRAUMATIC, NORMAL INSPECTION, NORMOCEPHALIC - Eye Exam Eye Exam: EOMI, Normal appearance, PERRL - ENT Exam ENT Exam: Mucous Membranes Moist, Normal Exam - Neck Exam Neck Exam: Full ROM, Normal Inspection. absent: Lymphadenopathy - Respiratory Exam Respiratory Exam: Rhonchi, Wheezes Additional comments: tachipnic with accessory muscle use. - Cardiovascular Exam Cardiovascular Exam: Irregular Rhythm, +S1, +S2, Murmur - GI/Abdominal Exam GI & Abdominal Exam: Soft, Normal Bowel Sounds. absent: Tenderness - Extremities Exam Extremities Exam: Pedal Edema - Back Exam Back Exam: NORMAL INSPECTION - Neurological Exam Neurological Exam: Alert, Awake, Oriented x3 - Psychiatric Exam Psychiatric exam: Normal Affect, Normal Mood - Skin Skin Exam: Dry, Intact, Normal Color, Warm Assessment and Plan (1) CAD (coronary artery disease) Status: Acute (2) COPD (chronic obstructive pulmonary disease) Status: Acute (3) Chronic atrial fibrillation Status: Acute (4) H/O mitral valve replacement with mechanical valve Status: Acute (5) History of CA (myocardial infarction) Status: Acute (6) Lower extremity edema Status: Acute - Assessment and Plan (Free Text) Plan: pts sob appears pulmonary in etiology. no crackles and min edema. no jvd. not improved with elevation of head of bed. exp wheezing neb treatment ordered. afib controlled ekg once less treatment given alerted staff continue tele monitor. will follow 90 min critical care time
--- NOTE | 2017-01-17 01:02 | CP.PCM.PN ---
<Wale Castillo - Last Filed: 01/17/17 00:50> Subjective - Date & Time of Evaluation Date of Evaluation: 01/17/17 Time of Evaluation: 00:50 - Subjective Subjective: PGY-[address] Diaz service Pt seen and examined at bedside. Pt states that he feels ok but that he begins to cough more with lots of talking. He denies any sob at rest. Denies fevers, chills, chest pain, palpitations, nausea or vomiting. Objective - Vital Signs/Intake and Output Vital Signs (last 24 hours): Temp Pulse Resp BP Pulse Ox 98.5 F 100 H 20 93/58 L 99 01/16/17 16:55 01/16/17 20:49 01/16/17 16:55 01/16/17 16:55 01/16/17 16:55 Intake and Output: 01/16/17 01/17/17 18:59 06:59 Intake Total 800 550 Output Total 900 Balance -100 550 - Medications Medications: Current Medications Albuterol/Ipratropium (Duoneb 3 Mg/0.5 Mg (3 Ml) Ud) 3 ml INH RQ6 [facility] Last Admin: 01/16/17 19:17 Dose: 3 ml Budesonide (Pulmicort Respules) 0.5 mg INH RQ12 [facility] Last Admin: 01/16/17 19:17 Dose: 0.5 mg Digoxin (Lanoxin) 0.125 mg PO DAILY@1800 [facility] Last Admin: 01/16/17 18:57 Dose: 0.125 mg Furosemide (Lasix) 40 mg IVP DAILY [facility] Guaifenesin (Mucinex La) 600 mg PO BID [facility] Last Admin: 01/16/17 18:57 Dose: 600 mg Lisinopril (Zestril) 10 mg PO DAILY [facility] Last Admin: 01/16/17 09:28 Dose: 10 mg Methylprednisolone (Solu-Medrol) 40 mg IVP Q8 [facility] Last Admin: 01/16/17 22:09 Dose: 40 mg Pantoprazole Sodium (Protonix Ec Tab) 40 mg PO DAILY [facility] Last Admin: 01/16/17 09:28 Dose: 40 mg Rosuvastatin Calcium (Crestor) 10 mg PO HS [facility] Last Admin: 01/15/17 21:38 Dose: 10 mg Spironolactone (Aldactone) 25 mg PO DAILY [facility] Last Admin: 01/16/17 09:27 Dose: 25 mg Tiotropium [place] (Spiriva) 18 mcg INH RQ24 [facility] Last Admin: 01/16/17 09:16 Dose: 18 mcg - Labs Labs: 01/16/17 10:55 01/16/17 13:03 PT 30.2 SECONDS (9.7-12.2) H* 01/16/17 13:03 INR 2.6 01/16/17 13:03 APTT 33 SECONDS (21-34) 01/16/17 10:55 - Constitutional Appears: Chronically Ill - Head Exam Head Exam: ATRAUMATIC, NORMOCEPHALIC - Eye Exam Eye Exam: Normal appearance Pupil Exam: PERRL - ENT Exam ENT Exam: Mucous Membranes Moist - Respiratory Exam Respiratory Exam: Clear to Ausculation Bilateral, NORMAL BREATHING PATTERN. absent: Rales, Rhonchi, Wheezes - Cardiovascular Exam Cardiovascular Exam: +S1, +S2 - GI/Abdominal Exam GI & Abdominal Exam: Soft, Normal Bowel Sounds - Neurological Exam Neurological Exam: Alert, Awake - Skin Skin Exam: Dry, Warm Assessment and Plan - Assessment and Plan (Free Text) Assessment: 71 year old male with past medical history including PR, CAD with history of CABG and valve replacement 6-7 years ago. Reports worstenting SOB and dizziness with associated swelling of bilateral LE for past 2-3 days. Admits this is the first time he has experienced these symptoms. SOB is worse when he lays flat. -Discharge planning to [facility] once INR in 2.5-3.5 range and SOB is better controlled. Case working on logistics. Plan: COPD (chronic obstructive pulmonary disease) -01/17: no events, Pt just complains of some sob/coughing with too much talking. Pt still not using BiPAP -01/16: RAPID called due to SOB. BP 80/50's. Bolused 500cc NS. Ordered BIPAP and ABG, however patient refused. Placed back on NC 3L. -01/14-01/15: Patient complaining of SOB with exertion and orthopnea. Maintain Head of bed elevated 30 degrees. -01/13: PT session: 98% O2 at 2L at rest, 96% room air at rest sitting, 82% room air during ambulation, 88% at 2 liter ambulation. -01/12: Walked 20 steps today down bruno, and patient became dizzy, SOB, and almost collapsed. - Solumedrol 40mg IVP Q8H [facility] (01/12) - Consulted Pulmonology, Dr. Cobb, f/u recs - Aware of HR in 140's and SOB after eating and low levels of exertion. -f/u ABG (not collected) -LDH 654H -HIV - negative -planning for home O2 -persistent shortness of breath - Patient with long history of smoking most likely has underlying COPD. Nebulizer treatment. Inhaled steroids. Spiriva. PFT as out pt Cough, acute -01/17: cough is persistent and exacerbated with talking -01/15: patient developed productive cough with yellow sputum today. -Mucinex 600mg PO BID. Systolic dysfunction with acute on chronic heart failure -01/16: RAPID called due to SOB. BP 80/50's. Bolused 500cc NS. Ordered BIPAP and ABG, however patient refused. Placed back on NC 3L. ProBNP 4070H (less than # on admission) and KACY negative. -01/16: Decrease to Lasix 40mg PO daily (was BID). Admit to telemetry, BNP 4560 on admission Consulted Cardiology, Dr. Arguelles - f/u recs -will attempt to obtain company of AICD for interrogation. -continue diuretic therapy. likely deconditioned. will benefit from rehab - EF 10-15%, mechanical MV- no regurg, tricuspid regurg. see full report Digoxin 0.125mg Lisinopril 10mg daily Aldactone 25mg PO Daily patient with AICD, will check echo to determine EF CXR 01/03: mild cardiomegaly, mild pulmonary venous congestion. s/p sternotomy, aortic valve replacement, AICD H/O mitral valve replacement with mechanical valve Cardiac valve replacement 6-7yrs ago Consulted Cardiology, Dr. Arguelles - f/u recs -echocardiogram reviewed. valve leaflets are opening and functional. There is no signficant gradient across the valve. -recommend INR 2.5 to 3.5. STOP Lovenox 01/11 STOP Heparin Drip - cardiac protocol, with bolus (because patient is refusing blood draws) 01/07: PT/INR 1.3 32: PT/INR refused, Coumadin 10mg 01/09: PT/INR 1.5, Coumadin 10mg 01/10: PT/INR 2.0, Coumadin 10mg 01/11: PT/INR 2.4, Coumadin 7.5mg; patient received one more dose of Lovenox 80mg SC today, now discontinued as bridge complete. 01/12: PT/INR 2.5, Coumadin 7.5mg 01/13: PT/INR 3.1, Coumadin 5mg 01/14: PT/INR 3.7, Coumadin 5mg (stopped by pharmacy) 01/15: PT/INR 2.8, Coumadin 5mg 01/16: PT/INR 2.6, Coumadin 4mg 01/17: F/U PT/INR in AM Chronic atrial fibrillation Consulted Cardiology, Dr. Arguelles - f/u recs -Rate controlled -echocardiogram reviewed. valve leaflets are opening and functional. There is no signficant gradient across the valve. -recommend INR 2.5 to 3.5. -See PT/INR trends above Coumadin as above STOP Lovenox 01/11 CAD (coronary artery disease) Consulted Cardiology, Dr. Arguelles - f/u recs -Aware of HR in 140's and SOB after eating and low levels of exertion. -unknown graft status. no evidence of ischemia at present -No current angina History of PR (myocardial infarction) Crestor 10mg PO HS - HELD due to transaminitis ROMIs negative x3 EKG paced Denies chest pain Transaminitis, acute 01/17: trend liver enzymes f/u 01/16: AST 90 / ALT 164 - increasing -> hold Crestor - AST 77 / ALT 98 -> previously normal. - Continue to monitor Electrolyte Imbalance Hyperkalemia - resolved Tachycardia 01/13: Patient becomes SOB very easily, desaturating to 82% while ambulating. Anytime he eats or gets up, HR climbs into 140's Continue Digoxin 0.125mg EKG in ER: sinus tachycardia at 100, paced, incomplete RBBB Discontinued cardizem drip of 5mg/h started in the ER Lower extremity edema LE Duplex - negative. see full report. Prophylactic measure Stopped lovenox 40u sc daily (bridging lovenox to Coumadin). protonix 40mg daily SCD contraindicated due to LE edema [All management as per Dr. Otoole] <Johnnie Otoole Jr. - Last Filed: 01/18/17 19:54> Objective - Vital Signs/Intake and Output Vital Signs (last 24 hours): Temp Pulse Resp BP Pulse Ox 97.6 F 57 L 20 94/57 L 98 01/18/17 15:43 01/18/17 15:43 01/18/17 15:43 01/18/17 15:43 01/18/17 15:43 - Medications Medications: Current Medications Albuterol/Ipratropium (Duoneb 3 Mg/0.5 Mg (3 Ml) Ud) 3 ml INH RQ6 [facility] Last Admin: 01/18/17 19:25 Dose: 3 ml Budesonide (Pulmicort Respules) 0.5 mg INH RQ12 [facility] Last Admin: 01/18/17 19:25 Dose: 0.5 mg Digoxin (Lanoxin) 0.125 mg PO DAILY@1800 [facility] Last Admin: 01/18/17 18:07 Dose: 0.125 mg Furosemide (Lasix) 40 mg IVP DAILY [facility] Last Admin: 01/18/17 10:32 Dose: 40 mg Guaifenesin (Mucinex La) 600 mg PO BID [facility] Last Admin: 01/18/17 18:07 Dose: 600 mg Lisinopril (Zestril) 10 mg PO DAILY [facility] Last Admin: 01/18/17 10:32 Dose: 10 mg Methylprednisolone (Solu-Medrol) 40 mg IVP Q8 [facility] Last Admin: 01/18/17 13:23 Dose: 40 mg Pantoprazole Sodium (Protonix Ec Tab) 40 mg PO DAILY [facility] Last Admin: 01/18/17 10:32 Dose: 40 mg Rosuvastatin Calcium (Crestor) 10 mg PO HS [facility] Last Admin: 01/17/17 22:41 Dose: 10 mg Spironolactone (Aldactone) 25 mg PO DAILY [facility] Last Admin: 01/18/17 10:32 Dose: 25 mg Tiotropium [place] (Spiriva) 18 mcg INH RQ24 [facility] Last Admin: 01/18/17 08:29 Dose: 18 mcg - Labs Labs: 01/18/17 10:50 01/18/17 10:50 PT 25.6 SECONDS (9.7-12.2) H D 01/18/17 10:50 INR 2.3 01/18/17 10:50 APTT 29 SECONDS (21-34) 01/18/17 10:50 Attending/Attestation - Attestation I have personally seen and examined this patient.: Yes I have fully participated in the care of the patient.: Yes I have reviewed all pertinent clinical information, including history, physical exam and plan: Yes Notes (Text): 01/18/17 19:54 Patient seen and examined with the resident. Reviewed resident note and agree with findings and plan of care. [ ]
[2017-01-17] MEDS: Albuterol-Ipratrop 3 mg / 0.5 (3 ml) UD INH SCH ×4 (01:08→19:26)
[2017-01-17] MEDS: MethylPREDNISolone 40 mg Vial IVP SCH ×3 (06:20→22:41)
[2017-01-17] MEDS: Tiotropium 18 mcg Cap For Inhalation INH SCH (07:45)
[2017-01-17] MEDS: Budesonide 0.5 mg/2 ml Inhal Susp UD INH SCH ×2 (07:45→19:26)
[2017-01-17] MEDS: Pantoprazole 40 mg EC Tab PO SCH (10:00)
[2017-01-17] MEDS: guaiFENesin 600 mg ER Tab PO SCH ×2 (10:01→19:02)
[2017-01-17 10:43] LABS: CHLORIDE 92 mmol/L (98-107); SODIUM 134 mmol/L (132-148)
[2017-01-17 10:44] LABS: POTASSIUM 4.4 mmol/L (3.6-5.2)
[2017-01-17 10:46] LABS: ALB/GLOB RATIO 1.2 (1.0-2.1); ALKALINE PHOSPHATASE 77 U/L (38-126); ALT/SGPT 235 U/L (21-72); AST/SGOT 120 U/L (17-59); BILIRUBIN,TOTAL 0.6 mg/dL (0.2-1.3); BLOOD UREA NITROGEN 37 mg/dL (9-20); CARBON DIOXIDE 32 mmol/L (22-30); GFR AFRICAN-AMERICAN > 60; GLUCOSE,RANDOM 124 mg/dL (75-110); PHOSPHOROUS 2.2 mg/dL (2.5-4.5); TOTAL PROTEIN 6.7 g/dL (6.3-8.3)
[2017-01-17 10:47] LABS: CALCIUM 9.5 mg/dl (8.6-10.4); MAGNESIUM 2.3 mg/dL (1.6-2.3)
[2017-01-17 10:51] LABS: HEMATOCRIT 39.9 % (35.0-51.0); LYMPH # 0.1 K/uL (1.0-4.3); LYMPH % 1.3 % (20.0-40.0); MEAN CELL VOLUME 82.2 fL (80.0-94.0); MEAN CORPUSCULAR HEMOGLOBIN 26.7 pg (27.0-31.0); MEAN CORPUSCULAR HGB CONC 32.5 g/dL (33.0-37.0); MEAN PLATELET VOLUME 8.3 fL (7.2-11.7); MONO # 0.9 K/uL (0.0-0.8); MONO % 9.4 % (0.0-10.0); PLATELET COUNT 174 K/uL (130-400); RED CELL DISTRIBUTION WIDTH 18.7 % (11.5-14.5); WHITE BLOOD COUNT 9.1 K/uL (4.8-10.8)
[2017-01-17 10:59] LABS: INR 2.7
[2017-01-17 11:48] LABS: NEUTROPHIL 90 % (50-75); REACTIVE LYMPHOCYTES 2 % (0-0); TOTAL CELLS COUNTED 100
[2017-01-17 11:50] LABS: LARGE PLATELETS PRESENT
--- NOTE | 2017-01-17 14:36 | CP.PCM.PN ---
Subjective - Date & Time of Evaluation Date of Evaluation: 01/17/17 Time of Evaluation: 14:35 - Subjective Subjective: patient seen and examined Shortness of breath On BiPAP Complaining of cough afebrile Objective - Vital Signs/Intake and Output Vital Signs (last 24 hours): Temp Pulse Resp BP Pulse Ox 97.2 F L 99 H 18 120/65 100 01/17/17 07:25 01/17/17 07:35 01/17/17 07:25 01/17/17 10:03 01/17/17 07:25 Intake and Output: 01/17/17 01/17/17 06:59 18:59 Intake Total 550 Output Total 1100 Balance -550 - Medications Medications: Current Medications Albuterol/Ipratropium (Duoneb 3 Mg/0.5 Mg (3 Ml) Ud) 3 ml INH RQ6 [facility] Last Admin: 01/17/17 13:45 Dose: 3 ml Budesonide (Pulmicort Respules) 0.5 mg INH RQ12 [facility] Last Admin: 01/17/17 07:45 Dose: 0.5 mg Digoxin (Lanoxin) 0.125 mg PO DAILY@1800 [facility] Last Admin: 01/16/17 18:57 Dose: 0.125 mg Furosemide (Lasix) 40 mg IVP DAILY [facility] Last Admin: 01/17/17 10:03 Dose: 40 mg Guaifenesin (Mucinex La) 600 mg PO BID [facility] Last Admin: 01/17/17 10:01 Dose: 600 mg Lisinopril (Zestril) 10 mg PO DAILY [facility] Last Admin: 01/17/17 10:00 Dose: 10 mg Methylprednisolone (Solu-Medrol) 40 mg IVP Q8 [facility] Last Admin: 01/17/17 13:20 Dose: 40 mg Pantoprazole Sodium (Protonix Ec Tab) 40 mg PO DAILY [facility] Last Admin: 01/17/17 10:00 Dose: 40 mg Rosuvastatin Calcium (Crestor) 10 mg PO HS [facility] Last Admin: 01/15/17 21:38 Dose: 10 mg Spironolactone (Aldactone) 25 mg PO DAILY [facility] Last Admin: 01/17/17 10:00 Dose: 25 mg Tiotropium [place] (Spiriva) 18 mcg INH RQ24 [facility] Last Admin: 01/17/17 07:45 Dose: 18 mcg - Labs Labs: 01/17/17 10:32 01/17/17 10:32 PT 31.2 SECONDS (9.7-12.2) H* 01/17/17 10:32 INR 2.7 01/17/17 10:32 APTT 33 SECONDS (21-34) 01/17/17 10:32 - Head Exam Head Exam: ATRAUMATIC, NORMOCEPHALIC - Eye Exam Eye Exam: Normal appearance - ENT Exam ENT Exam: Mucous Membranes Moist - Neck Exam Neck Exam: Normal Inspection - Respiratory Exam Respiratory Exam: Rales, Rhonchi - Cardiovascular Exam Cardiovascular Exam: Irregular Rhythm - GI/Abdominal Exam GI & Abdominal Exam: Soft, Normal Bowel Sounds - Extremities Exam Extremities Exam: Normal Inspection - Neurological Exam Neurological Exam: Awake Assessment and Plan (1) COPD (chronic obstructive pulmonary disease) Assessment & Plan: continue IV steroids and nebulizer medicines Continue BiPAP Continue antibiotics Follow-up chest x-ray home oxygen Status: Acute (2) Acute exacerbation of CHF (congestive heart failure) Status: Acute (3) Chronic atrial fibrillation Status: Chronic
--- NOTE | 2017-01-17 17:45 | CP.PCM.PN ---
Subjective - Date & Time of Evaluation Date of Evaluation: 01/17/17 Time of Evaluation: 11:00 - Subjective Subjective: LESS SOB TODAY. GETTING NEBS AND STEROIDS Objective - Vital Signs/Intake and Output Vital Signs (last 24 hours): Temp Pulse Resp BP Pulse Ox 98.2 F 84 20 120/76 96 01/17/17 15:00 01/17/17 16:18 01/17/17 15:00 01/17/17 15:00 01/17/17 15:00 Intake and Output: 01/17/17 01/17/17 06:59 18:59 Intake Total 550 Output Total 1100 Balance -550 - Medications Medications: Current Medications Albuterol/Ipratropium (Duoneb 3 Mg/0.5 Mg (3 Ml) Ud) 3 ml INH RQ6 [facility] Last Admin: 01/17/17 13:45 Dose: 3 ml Budesonide (Pulmicort Respules) 0.5 mg INH RQ12 [facility] Last Admin: 01/17/17 07:45 Dose: 0.5 mg Digoxin (Lanoxin) 0.125 mg PO DAILY@1800 [facility] Last Admin: 01/16/17 18:57 Dose: 0.125 mg Furosemide (Lasix) 40 mg IVP DAILY [facility] Last Admin: 01/17/17 10:03 Dose: 40 mg Guaifenesin (Mucinex La) 600 mg PO BID [facility] Last Admin: 01/17/17 10:01 Dose: 600 mg Lisinopril (Zestril) 10 mg PO DAILY [facility] Last Admin: 01/17/17 10:00 Dose: 10 mg Methylprednisolone (Solu-Medrol) 40 mg IVP Q8 [facility] Last Admin: 01/17/17 13:20 Dose: 40 mg Pantoprazole Sodium (Protonix Ec Tab) 40 mg PO DAILY [facility] Last Admin: 01/17/17 10:00 Dose: 40 mg Rosuvastatin Calcium (Crestor) 10 mg PO HS [facility] Last Admin: 01/15/17 21:38 Dose: 10 mg Spironolactone (Aldactone) 25 mg PO DAILY [facility] Last Admin: 01/17/17 10:00 Dose: 25 mg Tiotropium [place] (Spiriva) 18 mcg INH RQ24 [facility] Last Admin: 01/17/17 07:45 Dose: 18 mcg Warfarin Sodium (Coumadin) 4 mg PO 1800 [facility] Stop: 01/17/17 18:01 - Labs Labs: 01/17/17 10:32 01/17/17 10:32 PT 31.2 SECONDS (9.7-12.2) H* 01/17/17 10:32 INR 2.7 01/17/17 10:32 APTT 33 SECONDS (21-34) 01/17/17 10:32 - Constitutional Appears: Well - Head Exam Head Exam: ATRAUMATIC, NORMAL INSPECTION, NORMOCEPHALIC - Eye Exam Eye Exam: EOMI, Normal appearance, PERRL Pupil Exam: NORMAL ACCOMODATION, PERRL - ENT Exam ENT Exam: Mucous Membranes Moist, Normal Exam - Neck Exam Neck Exam: Full ROM, Normal Inspection. absent: Lymphadenopathy - Respiratory Exam Respiratory Exam: Rhonchi, Wheezes, NORMAL BREATHING PATTERN - Cardiovascular Exam Cardiovascular Exam: Irregular Rhythm, Murmur - GI/Abdominal Exam GI & Abdominal Exam: Soft, Normal Bowel Sounds. absent: Tenderness - Extremities Exam Extremities Exam: Full ROM, Normal Capillary Refill, Normal Inspection. absent : Joint Swelling, Pedal Edema - Back Exam Back Exam: NORMAL INSPECTION - Neurological Exam Neurological Exam: Alert, Awake, CN II-XII Intact, Normal Gait, Oriented x3 - Psychiatric Exam Psychiatric exam: Normal Affect, Normal Mood - Skin Skin Exam: Dry, Intact, Normal Color, Warm Assessment and Plan (1) CAD (coronary artery disease) Status: Acute (2) COPD (chronic obstructive pulmonary disease) Status: Acute (3) Chronic atrial fibrillation Status: Acute (4) H/O mitral valve replacement with mechanical valve Status: Acute (5) History of GA (myocardial infarction) Status: Acute (6) Lower extremity edema Status: Acute - Assessment and Plan (Free Text) Plan: CONTINUE CURRENT CARE HR CONTROLLED BP CONTROLLED ECHO PENDING WILL FOLLOW
[2017-01-17] MEDS: Digoxin 125 mcg (0.125 mg) Tab PO SCH (19:00)
--- NOTE | 2017-01-18 00:10 | CP.PCM.PN ---
<JonathanWale - Last Filed: 01/18/17 00:08> Subjective - Date & Time of Evaluation Date of Evaluation: 01/18/17 Time of Evaluation: 00:08 - Subjective Subjective: PGY-[address] Diaz service Pt seen and examined at bedside. Pt still refusing ABG and BiPAP but also still complaining of some sob with coughing. States he may try BiPAP later. Denies fevers, chills, chest pain, palpitations, nausea or vomiting. Objective - Vital Signs/Intake and Output Vital Signs (last 24 hours): Temp Pulse Resp BP Pulse Ox 98.2 F 86 20 120/76 96 01/17/17 15:00 01/17/17 23:58 01/17/17 15:00 01/17/17 15:00 01/17/17 15:00 - Medications Medications: Current Medications Albuterol/Ipratropium (Duoneb 3 Mg/0.5 Mg (3 Ml) Ud) 3 ml INH RQ6 [facility] Last Admin: 01/17/17 19:26 Dose: 3 ml Budesonide (Pulmicort Respules) 0.5 mg INH RQ12 [facility] Last Admin: 01/17/17 19:26 Dose: 0.5 mg Digoxin (Lanoxin) 0.125 mg PO DAILY@1800 [facility] Last Admin: 01/17/17 19:00 Dose: 0.125 mg Furosemide (Lasix) 40 mg IVP DAILY [facility] Last Admin: 01/17/17 10:03 Dose: 40 mg Guaifenesin (Mucinex La) 600 mg PO BID [facility] Last Admin: 01/17/17 19:02 Dose: 600 mg Lisinopril (Zestril) 10 mg PO DAILY [facility] Last Admin: 01/17/17 10:00 Dose: 10 mg Methylprednisolone (Solu-Medrol) 40 mg IVP Q8 [facility] Last Admin: 01/17/17 22:41 Dose: 40 mg Pantoprazole Sodium (Protonix Ec Tab) 40 mg PO DAILY [facility] Last Admin: 01/17/17 10:00 Dose: 40 mg Rosuvastatin Calcium (Crestor) 10 mg PO HS [facility] Last Admin: 01/17/17 22:41 Dose: 10 mg Spironolactone (Aldactone) 25 mg PO DAILY [facility] Last Admin: 01/17/17 10:00 Dose: 25 mg Tiotropium [place] (Spiriva) 18 mcg INH RQ24 [facility] Last Admin: 01/17/17 07:45 Dose: 18 mcg - Labs Labs: 01/17/17 10:32 01/17/17 10:32 PT 31.2 SECONDS (9.7-12.2) H* 01/17/17 10:32 INR 2.7 01/17/17 10:32 APTT 33 SECONDS (21-34) 01/17/17 10:32 - Constitutional Appears: Chronically Ill - Head Exam Head Exam: ATRAUMATIC, NORMOCEPHALIC - Eye Exam Eye Exam: Normal appearance Pupil Exam: PERRL - ENT Exam ENT Exam: Mucous Membranes Moist - Respiratory Exam Respiratory Exam: Wheezes, NORMAL BREATHING PATTERN - Cardiovascular Exam Cardiovascular Exam: +S1, +S2 - GI/Abdominal Exam GI & Abdominal Exam: Soft, Normal Bowel Sounds. absent: Tenderness - Neurological Exam Neurological Exam: Alert, Awake - Skin Skin Exam: Dry, Warm Assessment and Plan - Assessment and Plan (Free Text) Assessment: 71 year old male with past medical history including AR, CAD with history of CABG and valve replacement 6-7 years ago. Reports worsening SOB and dizziness with associated swelling of bilateral LE for past 2-3 days. Admits this is the first time he has experienced these symptoms. SOB is worse when he lays flat. -Discharge planning to [facility] once INR in 2.5-3.5 range and SOB is better controlled. Case working on logistics. Plan: COPD (chronic obstructive pulmonary disease) - 01/18: Cont current management -01/17: no events, Pt just complains of some sob/coughing with too much talking. Pt still not using BiPAP -01/16: RAPID called due to SOB. BP 80/50's. Bolused 500cc NS. Ordered BIPAP and ABG, however patient refused. Placed back on NC 3L. -01/14-01/15: Patient complaining of SOB with exertion and orthopnea. Maintain Head of bed elevated 30 degrees. -01/13: PT session: 98% O2 at 2L at rest, 96% room air at rest sitting, 82% room air during ambulation, 88% at 2 liter ambulation. -01/12: Walked 20 steps today down bruno, and patient became dizzy, SOB, and almost collapsed. - Solumedrol 40mg IVP Q8H [facility] (01/12) - Consulted Pulmonology, Dr. Cobb, f/u recs - Aware of HR in 140's and SOB after eating and low levels of exertion. -f/u ABG (not collected) -LDH 654H -HIV - negative -planning for home O2 -persistent shortness of breath - Patient with long history of smoking most likely has underlying COPD. Nebulizer treatment. Inhaled steroids. Spiriva. PFT as out pt Cough, acute -01/17: cough is persistent and exacerbated with talking -01/15: patient developed productive cough with yellow sputum today. -Mucinex 600mg PO BID. Systolic dysfunction with acute on chronic heart failure -01/16: RAPID called due to SOB. BP 80/50's. Bolused 500cc NS. Ordered BIPAP and ABG, however patient refused. Placed back on NC 3L. ProBNP 4070H (less than # on admission) and KACY negative. -01/16: Decrease to Lasix 40mg PO daily (was BID). Admit to telemetry, BNP 4560 on admission Consulted Cardiology, Dr. Arguelles - f/u recs -will attempt to obtain company of AICD for interrogation. -continue diuretic therapy. likely deconditioned. will benefit from rehab - EF 10-15%, mechanical MV- no regurg, tricuspid regurg. see full report Digoxin 0.125mg Lisinopril 10mg daily Aldactone 25mg PO Daily patient with AICD, will check echo to determine EF CXR 01/03: mild cardiomegaly, mild pulmonary venous congestion. s/p sternotomy, aortic valve replacement, AICD H/O mitral valve replacement with mechanical valve Cardiac valve replacement 6-7yrs ago Consulted Cardiology, Dr. Arguelles - f/u recs -echocardiogram reviewed. valve leaflets are opening and functional. There is no signficant gradient across the valve. -recommend INR 2.5 to 3.5. STOP Lovenox 5 STOP Heparin Drip - cardiac protocol, with bolus (because patient is refusing blood draws) 01/07: PT/INR 1.3 3: PT/INR refused, Coumadin 10mg 01/09: PT/INR 1.5, Coumadin 10mg 01/10: PT/INR 2.0, Coumadin 10mg 01/11: PT/INR 2.4, Coumadin 7.5mg; patient received one more dose of Lovenox 80mg SC today, now discontinued as bridge complete. 01/12: PT/INR 2.5, Coumadin 7.5mg 01/13: PT/INR 3.1, Coumadin 5mg 01/14: PT/INR 3.7, Coumadin 5mg (stopped by pharmacy) 01/15: PT/INR 2.8, Coumadin 5mg 01/16: PT/INR 2.6, Coumadin 4mg 01/17: PT/INR 2.7, Coumadin 4 mg 01/18: f/u Am labs Chronic atrial fibrillation Consulted Cardiology, Dr. Arguelles - f/u recs -Rate controlled -echocardiogram reviewed. valve leaflets are opening and functional. There is no signficant gradient across the valve. -recommend INR 2.5 to 3.5. -See PT/INR trends above Coumadin as above STOP Lovenox 01/11 CAD (coronary artery disease) Consulted Cardiology, Dr. Arguelles - f/u recs -Aware of HR in 140's and SOB after eating and low levels of exertion. -unknown graft status. no evidence of ischemia at present -No current angina History of AR (myocardial infarction) Crestor 10mg PO HS - HELD due to transaminitis ROMIs negative x3 EKG paced Denies chest pain Transaminitis, acute 01/17: AST/ALT trending up 01/16: AST 90 / ALT 164 - increasing -> hold Crestor - AST 77 / ALT 98 -> previously normal. - Continue to monitor Electrolyte Imbalance Hyperkalemia - resolved Tachycardia 01/13: Patient becomes SOB very easily, desaturating to 82% while ambulating. Anytime he eats or gets up, HR climbs into 140's Continue Digoxin 0.125mg EKG in ER: sinus tachycardia at 100, paced, incomplete RBBB Discontinued cardizem drip of 5mg/h started in the ER Lower extremity edema LE Duplex - negative. see full report. Prophylactic measure Stopped lovenox 40u sc daily (bridging lovenox to Coumadin). protonix 40mg daily SCD contraindicated due to LE edema [All management as per Dr. Otoole] <Johnnie Otoole Jr. - Last Filed: 01/18/17 19:58> Objective - Vital Signs/Intake and Output Vital Signs (last 24 hours): Temp Pulse Resp BP Pulse Ox 97.6 F 57 L 20 94/57 L 98 01/18/17 15:43 01/18/17 15:43 01/18/17 15:43 01/18/17 15:43 01/18/17 15:43 - Medications Medications: Current Medications Albuterol/Ipratropium (Duoneb 3 Mg/0.5 Mg (3 Ml) Ud) 3 ml INH RQ6 [facility] Last Admin: 01/18/17 19:25 Dose: 3 ml Budesonide (Pulmicort Respules) 0.5 mg INH RQ12 [facility] Last Admin: 01/18/17 19:25 Dose: 0.5 mg Digoxin (Lanoxin) 0.125 mg PO DAILY@1800 [facility] Last Admin: 01/18/17 18:07 Dose: 0.125 mg Furosemide (Lasix) 40 mg IVP DAILY [facility] Last Admin: 01/18/17 10:32 Dose: 40 mg Guaifenesin (Mucinex La) 600 mg PO BID [facility] Last Admin: 01/18/17 18:07 Dose: 600 mg Lisinopril (Zestril) 10 mg PO DAILY [facility] Last Admin: 01/18/17 10:32 Dose: 10 mg Methylprednisolone (Solu-Medrol) 40 mg IVP Q8 [facility] Last Admin: 01/18/17 13:23 Dose: 40 mg Pantoprazole Sodium (Protonix Ec Tab) 40 mg PO DAILY [facility] Last Admin: 01/18/17 10:32 Dose: 40 mg Rosuvastatin Calcium (Crestor) 10 mg PO HS [facility] Last Admin: 01/17/17 22:41 Dose: 10 mg Spironolactone (Aldactone) 25 mg PO DAILY [facility] Last Admin: 01/18/17 10:32 Dose: 25 mg Tiotropium [place] (Spiriva) 18 mcg INH RQ24 [facility] Last Admin: 01/18/17 08:29 Dose: 18 mcg - Labs Labs: 01/18/17 10:50 01/18/17 10:50 PT 25.6 SECONDS (9.7-12.2) H D 01/18/17 10:50 INR 2.3 01/18/17 10:50 APTT 29 SECONDS (21-34) 01/18/17 10:50 Attending/Attestation - Attestation I have personally seen and examined this patient.: Yes I have fully participated in the care of the patient.: Yes I have reviewed all pertinent clinical information, including history, physical exam and plan: Yes Notes (Text): 01/18/17 19:58 Patient seen and examined with the resident. Reviewed resident note and agree with findings and plan of care. [ ]
[2017-01-18] MEDS: Albuterol-Ipratrop 3 mg / 0.5 (3 ml) UD INH SCH ×4 (01:21→19:25)
[2017-01-18] MEDS: MethylPREDNISolone 40 mg Vial IVP SCH ×3 (05:54→21:57)
[2017-01-18] MEDS: Tiotropium 18 mcg Cap For Inhalation INH SCH (08:29)
[2017-01-18] MEDS: Budesonide 0.5 mg/2 ml Inhal Susp UD INH SCH ×2 (08:30→19:25)
[2017-01-18] MEDS: Pantoprazole 40 mg EC Tab PO SCH (10:32)
[2017-01-18] MEDS: guaiFENesin 600 mg ER Tab PO SCH ×2 (10:32→18:07)
[2017-01-18 11:01] LABS: BASO % 0.1 % (0.0-2.0); HEMATOCRIT 39.4 % (35.0-51.0); LYMPH # 0.2 K/uL (1.0-4.3); LYMPH % 2.2 % (20.0-40.0); MEAN CELL VOLUME 81.9 fL (80.0-94.0); MEAN CORPUSCULAR HEMOGLOBIN 26.7 pg (27.0-31.0); MEAN CORPUSCULAR HGB CONC 32.7 g/dL (33.0-37.0); MEAN PLATELET VOLUME 8.4 fL (7.2-11.7); MONO # 0.6 K/uL (0.0-0.8); MONO % 7.8 % (0.0-10.0); PLATELET COUNT 183 K/uL (130-400); RED CELL DISTRIBUTION WIDTH 18.3 % (11.5-14.5); WHITE BLOOD COUNT 8.2 K/uL (4.8-10.8)
[2017-01-18 11:05] LABS: INR 2.3
[2017-01-18 11:08] LABS: CHLORIDE 92 mmol/L (98-107); POTASSIUM 4.3 mmol/L (3.6-5.2); SODIUM 133 mmol/L (132-148)
[2017-01-18 11:10] LABS: AST/SGOT 63 U/L (17-59); BILIRUBIN,TOTAL 0.5 mg/dL (0.2-1.3); CARBON DIOXIDE 28 mmol/L (22-30); GFR AFRICAN-AMERICAN > 60
[2017-01-18 11:11] LABS: ALB/GLOB RATIO 1.1 (1.0-2.1); ALKALINE PHOSPHATASE 81 U/L (38-126); ALT/SGPT 194 U/L (21-72); BLOOD UREA NITROGEN 38 mg/dL (9-20); CALCIUM 9.5 mg/dl (8.6-10.4); GLUCOSE,RANDOM 138 mg/dL (75-110); MAGNESIUM 2.3 mg/dL (1.6-2.3); PHOSPHOROUS 2.5 mg/dL (2.5-4.5); TOTAL PROTEIN 6.7 g/dL (6.3-8.3)
[2017-01-18 11:39] LABS: NEUTROPHIL 91 % (50-75); TOTAL CELLS COUNTED 100
[2017-01-18 11:55] LABS: LARGE PLATELETS PRESENT
[2017-01-18] MEDS: Digoxin 125 mcg (0.125 mg) Tab PO SCH (18:07)
--- NOTE | 2017-01-18 21:42 | CP.PCM.PN ---
Subjective - Date & Time of Evaluation Date of Evaluation: 01/18/17 Time of Evaluation: 21:39 - Subjective Subjective: C/O SOB, COUGH, IMPROVED FROM PRIOR EXAM. Objective - Vital Signs/Intake and Output Vital Signs (last 24 hours): Temp Pulse Resp BP Pulse Ox 97.6 F 57 L 20 94/57 L 98 01/18/17 15:43 01/18/17 15:43 01/18/17 15:43 01/18/17 15:43 01/18/17 15:43 - Medications Medications: Current Medications Albuterol/Ipratropium (Duoneb 3 Mg/0.5 Mg (3 Ml) Ud) 3 ml INH RQ6 [facility] Last Admin: 01/18/17 19:25 Dose: 3 ml Budesonide (Pulmicort Respules) 0.5 mg INH RQ12 [facility] Last Admin: 01/18/17 19:25 Dose: 0.5 mg Digoxin (Lanoxin) 0.125 mg PO DAILY@1800 [facility] Last Admin: 01/18/17 18:07 Dose: 0.125 mg Guaifenesin (Mucinex La) 600 mg PO BID [facility] Last Admin: 01/18/17 18:07 Dose: 600 mg Lisinopril (Zestril) 10 mg PO DAILY [facility] Last Admin: 01/18/17 10:32 Dose: 10 mg Methylprednisolone (Solu-Medrol) 40 mg IVP Q8 [facility] Last Admin: 01/18/17 13:23 Dose: 40 mg Pantoprazole Sodium (Protonix Ec Tab) 40 mg PO DAILY [facility] Last Admin: 01/18/17 10:32 Dose: 40 mg Rosuvastatin Calcium (Crestor) 10 mg PO HS [facility] Last Admin: 01/17/17 22:41 Dose: 10 mg Spironolactone (Aldactone) 25 mg PO DAILY [facility] Last Admin: 01/18/17 10:32 Dose: 25 mg Tiotropium [place] (Spiriva) 18 mcg INH RQ24 [facility] Last Admin: 01/18/17 08:29 Dose: 18 mcg - Labs Labs: 01/18/17 10:50 01/18/17 10:50 PT 25.6 SECONDS (9.7-12.2) H D 01/18/17 10:50 INR 2.3 01/18/17 10:50 APTT 29 SECONDS (21-34) 01/18/17 10:50 - Constitutional Appears: Well - Head Exam Head Exam: ATRAUMATIC, NORMAL INSPECTION, NORMOCEPHALIC - Eye Exam Eye Exam: EOMI, Normal appearance, PERRL Pupil Exam: NORMAL ACCOMODATION, PERRL - ENT Exam ENT Exam: Mucous Membranes Dry - Neck Exam Neck Exam: Full ROM, Normal Inspection. absent: Lymphadenopathy - Respiratory Exam Respiratory Exam: Rhonchi, Wheezes - Cardiovascular Exam Cardiovascular Exam: +S1, +S2, Murmur - GI/Abdominal Exam GI & Abdominal Exam: Soft, Normal Bowel Sounds. absent: Tenderness - Extremities Exam Extremities Exam: Full ROM, Normal Capillary Refill, Normal Inspection. absent : Joint Swelling, Pedal Edema - Back Exam Back Exam: NORMAL INSPECTION - Neurological Exam Neurological Exam: Alert, Awake, CN II-XII Intact, Normal Gait, Oriented x3 - Psychiatric Exam Psychiatric exam: Normal Affect, Normal Mood - Skin Skin Exam: Dry, Intact, Normal Color, Warm Assessment and Plan (1) CAD (coronary artery disease) Status: Chronic (2) COPD (chronic obstructive pulmonary disease) Status: Acute (3) Chronic atrial fibrillation Status: Chronic (4) H/O mitral valve replacement with mechanical valve Status: Chronic (5) History of [place] (myocardial infarction) Status: Chronic (6) Lower extremity edema Status: Resolved - Assessment and Plan (Free Text) Plan: PTS SOB APPEARS TO BE SECONDARY TO PULM ETIOLOGY. IMPROVES WITH NEBS. PT WITH RHONCHI B/L. MAY BENEFIT FROM PULM TOILET. WILL HOLD LASIX FOR 1 TO 2 DAYS AND CONT MUCINEX. PT PRERENAL AND APPEARS DRY. ON BOTH LASIX AND SPIRONOLACTONE. CONT TELE AND HTN CONTROL
[2017-01-19] MEDS: Albuterol-Ipratrop 3 mg / 0.5 (3 ml) UD INH SCH ×4 (02:09→19:36)
[2017-01-19] MEDS: MethylPREDNISolone 40 mg Vial IVP SCH ×3 (06:28→21:32)
[2017-01-19] MEDS: Budesonide 0.5 mg/2 ml Inhal Susp UD INH SCH ×2 (07:48→19:36)
[2017-01-19] MEDS: Tiotropium 18 mcg Cap For Inhalation INH SCH (07:48)
[2017-01-19] MEDS: Pantoprazole 40 mg EC Tab PO SCH (09:19)
[2017-01-19] MEDS: guaiFENesin 600 mg ER Tab PO SCH ×2 (09:21→17:37)
--- NOTE | 2017-01-19 10:25 | CP.PCM.PN ---
<Lenny Adam - Last Filed: 01/19/17 19:34> Subjective - Date & Time of Evaluation Date of Evaluation: 01/19/17 Time of Evaluation: 07:25 - Subjective Subjective: PGY-[address] Diaz service Patient seen and examined at bedside. No overnight events as per nursing. Patient still complains of worsening cough with yellow phlegm. Patient also states he has persistent orthopnea and SOB at rest; He was observed wearing BIPAP today, sometimes refuses. Patient complains of dizziness upon sitting/ standing. +BM (last night). +urination. Denies f/c, palpitations, n/v, d/c, or any additional complaints. PT was held on Tuesday 01/16 secondary to rapid response at request of nursing staff. Will resume. Objective - Vital Signs/Intake and Output Vital Signs (last 24 hours): Temp Pulse Resp BP Pulse Ox 97.6 F 78 20 114/59 L 95 01/19/17 08:45 01/19/17 08:45 01/19/17 08:45 01/19/17 08:45 01/19/17 08:45 - Medications Medications: Current Medications Albuterol/Ipratropium (Duoneb 3 Mg/0.5 Mg (3 Ml) Ud) 3 ml INH RQ6 [facility] Last Admin: 01/19/17 07:48 Dose: 3 ml Budesonide (Pulmicort Respules) 0.5 mg INH RQ12 [facility] Last Admin: 01/19/17 07:48 Dose: 0.5 mg Digoxin (Lanoxin) 0.125 mg PO DAILY@1800 [facility] Last Admin: 01/18/17 18:07 Dose: 0.125 mg Guaifenesin (Mucinex La) 600 mg PO BID [facility] Last Admin: 01/19/17 09:21 Dose: 600 mg Methylprednisolone (Solu-Medrol) 40 mg IVP Q8 [facility] Last Admin: 01/19/17 06:28 Dose: 40 mg Rosuvastatin Calcium (Crestor) 10 mg PO HS [facility] Last Admin: 01/18/17 22:03 Dose: 10 mg Tiotropium [place] (Spiriva) 18 mcg INH RQ24 [facility] Last Admin: 01/19/17 07:48 Dose: 18 mcg - Labs Labs: 01/18/17 10:50 01/18/17 10:50 PT 25.6 SECONDS (9.7-12.2) H D 01/18/17 10:50 INR 2.3 01/18/17 10:50 APTT 29 SECONDS (21-34) 01/18/17 10:50 - Additional Findings Additional findings: - Constitutional Appears: Non-toxic, No Acute Distress - Head Exam Head Exam: ATRAUMATIC - Eye Exam Eye Exam: EOMI - ENT Exam ENT Exam: Mucous Membranes Moist - Respiratory Exam Respiratory Exam: Decreased Breath Sounds, Wheezes, Rhonchi (mid/upper zones b/l ), Respiratory Distress (orthopnea). -desaturates to 82% while walking, 88% with NC 2L - Cardiovascular Exam Cardiovascular Exam: REGULAR RHYTHM, +S1, +S2 Reproducible chest pain with palpation localized to the mid-sternum and over site of pacemaker. - GI/Abdominal Exam GI & Abdominal Exam: Soft, Normal Bowel Sounds, absent: Tenderness - Extremities Exam Extremities Exam: Pedal Edema (b/l 1+ pitting to mid thigh). absent: Tenderness Additional comments: pedal pulses 2+ - Neurological Exam Neurological Exam: Alert, Awake, Oriented x3 b/l hand numbness / tingling resolved - Psychiatric Exam Psychiatric exam: Normal Affect - Skin Skin Exam: Dry, Normal Color, Warm Tender to palpation at R sternal border, 2nd rib. Protrusion noted. Assessment and Plan - Assessment and Plan (Free Text) Assessment: 71 year old male with past medical history including HI, CAD with history of CABG and valve replacement 6-7 years ago. Reports worstenting SOB and dizziness with associated swelling of bilateral LE for past 2-3 days. Admits this is the first time he has experienced these symptoms. SOB is worse when he lays flat. -Discharge planning to [facility] once INR in 2.5-3.5 range and SOB is better controlled. Case working on logistics. Plan: COPD (chronic obstructive pulmonary disease) -01/19: Continue BIPAP, it helps however patient sometimes refuses despite being SOB. -01/16: RAPID called due to SOB. BP 80/50's. Bolused 500cc NS. Ordered BIPAP and ABG, however patient refused. Placed back on NC 3L. -01/14-01/15: Patient complaining of SOB with exertion and orthopnea. Maintain Head of bed elevated 30 degrees. -01/13: PT session: 98% O2 at 2L at rest, 96% room air at rest sitting, 82% room air during ambulation, 88% at 2 liter ambulation. -01/12: Walked 20 steps today down bruno, and patient became dizzy, SOB, and almost collapsed. - Solumedrol 40mg IVP Q8H [facility] (01/12) - Consulted Pulmonology, Dr. Cobb, f/u recs - Aware of HR in 140's and SOB after eating and low levels of exertion. -f/u ABG (not collected) -LDH 654H -HIV - negative -planning for home O2 -persistent shortness of breath - Patient with long history of smoking most likely has underlying COPD. Nebulizer treatment. Inhaled steroids. Spiriva. PFT as out pt Cough, acute -01/19: Persists. Continue Mucinex. -01/15: patient developed productive cough with yellow sputum today. -Mucinex 600mg PO BID. Systolic dysfunction with acute on chronic heart failure -01/16: RAPID called due to SOB. BP 80/50's. Bolused 500cc NS. Ordered BIPAP and ABG, however patient refused. Placed back on NC 3L. ProBNP 4070H (less than # on admission) and KACY negative. -01/16: Decrease to Lasix 40mg PO daily (was BID). Admit to telemetry, BNP 4560 on admission Consulted Cardiology, Dr. Arguelles - f/u recs -01/19: HOLD LASIX FOR 1 TO 2 DAYS AND CONT MUCINEX. PT PRERENAL AND APPEARS DRY. ON BOTH LASIX AND SPIRONOLACTONE. -SOB APPEARS TO BE SECONDARY TO PULM ETIOLOGY. IMPROVES WITH NEBS. PT WITH RHONCHI B/L. MAY BENEFIT FROM PULM TOILET. -[facility]. -likely deconditioned. will benefit from rehab - EF 10-15%, mechanical MV- no regurg, tricuspid regurg. see full report Digoxin 0.125mg Lisinopril 10mg daily Aldactone 25mg PO Daily patient with AICD, will check echo to determine EF CXR 01/03: mild cardiomegaly, mild pulmonary venous congestion. s/p sternotomy, aortic valve replacement, AICD H/O mitral valve replacement with mechanical valve Cardiac valve replacement 6-7yrs ago Consulted Cardiology, Dr. Arguelles - f/u recs -echocardiogram reviewed. valve leaflets are opening and functional. There is no signficant gradient across the valve. -recommend INR 2.5 to 3.5. STOP Lovenox 01/11 STOP Heparin Drip - cardiac protocol, with bolus (because patient is refusing blood draws) 01/07: PT/INR 1.3 01/08: PT/INR refused, Coumadin 10mg 01/09: PT/INR 1.5, Coumadin 10mg 01/10: PT/INR 2.0, Coumadin 10mg 01/11: PT/INR 2.4, Coumadin 7.5mg; patient received one more dose of Lovenox 80mg SC today, now discontinued as bridge complete. 01/12: PT/INR 2.5, Coumadin 7.5mg 01/13: PT/INR 3.1, Coumadin 5mg 01/14: PT/INR 3.7, Coumadin 5mg (stopped by pharmacy) 01/15: PT/INR 2.8, Coumadin 5mg 01/16: PT/INR 2.6, Coumadin 4mg 01/17: PT/INR 2.7, Coumadin 4 mg 01/18: PT/INR 2.3 Coumadin 4mg 01/19: PT/INR 2.1, Coumadin 6mg Chronic atrial fibrillation Consulted Cardiology, Dr. Arguelles - f/u recs -Rate controlled -echocardiogram reviewed. valve leaflets are opening and functional. There is no signficant gradient across the valve. -recommend INR 2.5 to 3.5. -See PT/INR trends above Coumadin as above STOP Lovenox 01/11 CAD (coronary artery disease) Consulted Cardiology, Dr. Arguelles - f/u recs -Aware of HR in 140's and SOB after eating and low levels of exertion. -unknown graft status. no evidence of ischemia at present -No current angina History of HI (myocardial infarction) Crestor 10mg PO HS ROMIs negative x3 EKG paced Denies chest pain Transaminitis, acute 01/19: AST 70 / ALT 201 - increasing -> hold crestor for 2 nights. 01/16: AST 90 / ALT 164 - increasing -> hold Crestor tonight. - AST 77 / ALT 98 -> previously normal. - Continue to monitor Electrolyte Imbalance Hyperkalemia - resolved Tachycardia 01/13: Patient becomes SOB very easily, desaturating to 82% while ambulating. Anytime he eats or gets up, HR climbs into 140's Continue Digoxin 0.125mg EKG in ER: sinus tachycardia at 100, paced, incomplete RBBB Discontinued cardizem drip of 5mg/h started in the ER Lower extremity edema LE Duplex - negative. see full report. Prophylactic measure Stopped lovenox 40u sc daily (bridging lovenox to Coumadin). protonix 40mg daily SCD contraindicated due to LE edema [All management as per Dr. Otoole] <Johnnie Otoole Jr. - Last Filed: 01/20/17 14:30> Objective - Vital Signs/Intake and Output Vital Signs (last 24 hours): Temp Pulse Resp BP Pulse Ox 97.6 F 76 20 111/70 99 01/20/17 07:43 01/20/17 08:00 01/20/17 07:43 01/20/17 07:43 01/20/17 07:43 Intake and Output: 01/20/17 01/20/17 06:59 18:59 Intake Total 320 Output Total 1650 Balance -1330 - Medications Medications: Current Medications Albuterol/Ipratropium (Duoneb 3 Mg/0.5 Mg (3 Ml) Ud) 3 ml INH RQ6 [facility] Last Admin: 01/20/17 13:12 Dose: 3 ml Budesonide (Pulmicort Respules) 0.5 mg INH RQ12 [facility] Last Admin: 01/20/17 07:52 Dose: Not Given Digoxin (Lanoxin) 0.125 mg PO DAILY@1800 [facility] Last Admin: 01/19/17 17:37 Dose: 0.125 mg Guaifenesin (Mucinex La) 600 mg PO BID [facility] Last Admin: 01/20/17 08:59 Dose: 600 mg Methylprednisolone (Solu-Medrol) 40 mg IVP Q8 [facility] Last Admin: 01/20/17 14:01 Dose: 40 mg Rosuvastatin Calcium (Crestor) 10 mg PO HS [facility] Last Admin: 01/18/17 22:03 Dose: 10 mg Tiotropium [place] (Spiriva) 18 mcg INH RQ24 [facility] Last Admin: 01/20/17 07:52 Dose: Not Given - Labs Labs: 01/19/17 11:00 01/20/17 11:00 PT 23.5 SECONDS (9.7-12.2) H 01/19/17 11:00 INR 2.1 01/19/17 11:00 APTT 27 SECONDS (21-34) 01/19/17 11:00 Attending/Attestation - Attestation I have personally seen and examined this patient.: Yes I have fully participated in the care of the patient.: Yes I have reviewed all pertinent clinical information, including history, physical exam and plan: Yes Notes (Text): 01/20/17 14:29
[2017-01-19 11:16] LABS: MONO # 1.1 K/uL (0.0-0.8)
[2017-01-19 11:23] LABS: BASO % 0.1 % (0.0-2.0); HEMATOCRIT 42.2 % (35.0-51.0); LYMPH # 0.3 K/uL (1.0-4.3); LYMPH % 1.8 % (20.0-40.0); MEAN CELL VOLUME 82.2 fL (80.0-94.0); MEAN CORPUSCULAR HEMOGLOBIN 26.7 pg (27.0-31.0); MEAN CORPUSCULAR HGB CONC 32.5 g/dL (33.0-37.0); MEAN PLATELET VOLUME 8.3 fL (7.2-11.7); NRBC % 0.1 % (0.0-2.0); PLATELET COUNT 194 K/uL (130-400); RED CELL DISTRIBUTION WIDTH 18.6 % (11.5-14.5)
[2017-01-19 11:28] LABS: INR 2.1; WHITE BLOOD COUNT 14.2 K/uL (4.8-10.8)
[2017-01-19 11:38] LABS: CHLORIDE 92 mmol/L (98-107); NEUTROPHIL 89 % (50-75); SODIUM 133 mmol/L (132-148); TOTAL CELLS COUNTED 100
[2017-01-19 11:39] LABS: POTASSIUM 4.4 mmol/L (3.6-5.2)
[2017-01-19 11:41] LABS: ALB/GLOB RATIO 1.1 (1.0-2.1); ALKALINE PHOSPHATASE 85 U/L (38-126); ALT/SGPT 201 U/L (21-72); AST/SGOT 70 U/L (17-59); BILIRUBIN,TOTAL 0.5 mg/dL (0.2-1.3); BLOOD UREA NITROGEN 40 mg/dL (9-20); CARBON DIOXIDE 31 mmol/L (22-30); GFR AFRICAN-AMERICAN > 60; GLUCOSE,RANDOM 137 mg/dL (75-110); PHOSPHOROUS 2.8 mg/dL (2.5-4.5)
[2017-01-19 11:42] LABS: CALCIUM 9.6 mg/dl (8.6-10.4); MAGNESIUM 2.3 mg/dL (1.6-2.3)
--- NOTE | 2017-01-19 12:10 | CP.PCM.PN ---
Subjective - Date & Time of Evaluation Date of Evaluation: 01/19/17 Time of Evaluation: 10:45 - Subjective Subjective: Pt seen and examined at bedside. Pt laying in bed with head rest at 30 degrees. Pt states that he continues to have shortness of breath which is exacerbated by him exerting himself while walking to the bathroom. He also states that his SOB gets worse after talking for too long. Pt also admits to coughing at times but denies any productivity of phlegm. Pt also denies CP or subjective fever. As per nurses note today, patient is refusing his Bi-Pap treatment. Objective - Vital Signs/Intake and Output Vital Signs (last 24 hours): Temp Pulse Resp BP Pulse Ox 97.6 F 78 20 114/59 L 95 01/19/17 08:45 01/19/17 08:45 01/19/17 08:45 01/19/17 08:45 01/19/17 08:45 - Medications Medications: Current Medications Albuterol/Ipratropium (Duoneb 3 Mg/0.5 Mg (3 Ml) Ud) 3 ml INH RQ6 [facility] Last Admin: 01/19/17 07:48 Dose: 3 ml Budesonide (Pulmicort Respules) 0.5 mg INH RQ12 [facility] Last Admin: 01/19/17 07:48 Dose: 0.5 mg Digoxin (Lanoxin) 0.125 mg PO DAILY@1800 [facility] Last Admin: 01/18/17 18:07 Dose: 0.125 mg Guaifenesin (Mucinex La) 600 mg PO BID [facility] Last Admin: 01/19/17 09:21 Dose: 600 mg Methylprednisolone (Solu-Medrol) 40 mg IVP Q8 [facility] Last Admin: 01/19/17 06:28 Dose: 40 mg Rosuvastatin Calcium (Crestor) 10 mg PO HS [facility] Last Admin: 01/18/17 22:03 Dose: 10 mg Tiotropium [place] (Spiriva) 18 mcg INH RQ24 [facility] Last Admin: 01/19/17 07:48 Dose: 18 mcg Warfarin Sodium (Coumadin) 6 mg PO 1800 [facility] Stop: 01/19/17 18:01 - Labs Labs: 01/19/17 11:00 01/19/17 11:00 PT 23.5 SECONDS (9.7-12.2) H 01/19/17 11:00 INR 2.1 01/19/17 11:00 APTT 27 SECONDS (21-34) 01/19/17 11:00 - Constitutional Appears: Non-toxic, No Acute Distress - Head Exam Head Exam: ATRAUMATIC, NORMOCEPHALIC - Eye Exam Eye Exam: Normal appearance Pupil Exam: NORMAL ACCOMODATION - ENT Exam ENT Exam: Mucous Membranes Moist - Respiratory Exam Respiratory Exam: Decreased Breath Sounds, Rhonchi. absent: Respiratory Distress - Cardiovascular Exam Cardiovascular Exam: REGULAR RHYTHM, +S1, +S2 - Neurological Exam Neurological Exam: Alert, Awake, Oriented x3 - Skin Skin Exam: Dry, Normal Color, Warm Assessment and Plan (1) COPD (chronic obstructive pulmonary disease) Assessment & Plan: Continue duonebs, pulmicort, solu-medrol, spirivia. [employer] pt on importance of bipap to help with his SOB Recommend outpatient treatment followup for COPD and CHF Pt needs home oxygen upon discharge Status: Acute (2) Acute exacerbation of CHF (congestive heart failure) Status: Acute (3) Chronic atrial fibrillation Status: Chronic
[2017-01-19] MEDS: Digoxin 125 mcg (0.125 mg) Tab PO SCH (17:37)
[2017-01-20] MEDS: Albuterol-Ipratrop 3 mg / 0.5 (3 ml) UD INH SCH ×4 (01:03→19:32)
[2017-01-20] MEDS: MethylPREDNISolone 40 mg Vial IVP SCH ×3 (06:21→23:09)
[2017-01-20] MEDS: Tiotropium 18 mcg Cap For Inhalation INH SCH (07:52)
[2017-01-20] MEDS: Budesonide 0.5 mg/2 ml Inhal Susp UD INH SCH ×2 (07:52→19:32)
--- NOTE | 2017-01-20 08:38 | CP.PCM.PN ---
<Lenny Adam - Last Filed: 01/20/17 18:30> Subjective - Date & Time of Evaluation Date of Evaluation: 01/20/17 Time of Evaluation: 07:05 - Subjective Subjective: PGY-[address] Diaz service Patient seen and examined at bedside. No overnight events as per nursing. Patient with persistent cough, non-productive, however he felt mucinex helped loosen mucous. Orthopnea and SOB at rest persist; Patient did not wear BIPAP overnight, however he will wear this morning (he sometimes refuses). Denies f/c , palpitations, n/v, d/c, or any additional complaints. Objective - Vital Signs/Intake and Output Vital Signs (last 24 hours): Temp Pulse Resp BP Pulse Ox 97.6 F 83 20 111/70 99 01/20/17 07:43 01/20/17 07:53 01/20/17 07:43 01/20/17 07:43 01/20/17 07:43 Intake and Output: 01/20/17 01/20/17 06:59 18:59 Intake Total 320 Output Total 1650 Balance -1330 - Medications Medications: Current Medications Albuterol/Ipratropium (Duoneb 3 Mg/0.5 Mg (3 Ml) Ud) 3 ml INH RQ6 [facility] Last Admin: 01/20/17 07:48 Dose: 3 ml Budesonide (Pulmicort Respules) 0.5 mg INH RQ12 [facility] Last Admin: 01/20/17 07:52 Dose: Not Given Digoxin (Lanoxin) 0.125 mg PO DAILY@1800 [facility] Last Admin: 01/19/17 17:37 Dose: 0.125 mg Guaifenesin (Mucinex La) 600 mg PO BID [facility] Last Admin: 01/19/17 17:37 Dose: 600 mg Methylprednisolone (Solu-Medrol) 40 mg IVP Q8 [facility] Last Admin: 01/20/17 06:21 Dose: 40 mg Rosuvastatin Calcium (Crestor) 10 mg PO HS [facility] Last Admin: 01/18/17 22:03 Dose: 10 mg Tiotropium [place] (Spiriva) 18 mcg INH RQ24 [facility] Last Admin: 01/20/17 07:52 Dose: Not Given - Labs Labs: 01/19/17 11:00 01/19/17 11:00 PT 23.5 SECONDS (9.7-12.2) H 01/19/17 11:00 INR 2.1 01/19/17 11:00 APTT 27 SECONDS (21-34) 01/19/17 11:00 - Additional Findings Additional findings: - Constitutional Appears: Non-toxic, No Acute Distress - Head Exam Head Exam: ATRAUMATIC - Eye Exam Eye Exam: EOMI - ENT Exam ENT Exam: Mucous Membranes Moist - Respiratory Exam Respiratory Exam: Decreased Breath Sounds, Wheezes, Rhonchi (mid/upper zones b/l ), Respiratory Distress (orthopnea). -desaturates to 82% while walking, 88% with NC 2L - Cardiovascular Exam Cardiovascular Exam: REGULAR RHYTHM, +S1, +S2 Tender to palpation at R sternal border, 2nd rib. Protrusion noted (chronic) Tender to palpation over site of pacemaker (chronic) - GI/Abdominal Exam GI & Abdominal Exam: Soft, Normal Bowel Sounds, absent: Tenderness - Extremities Exam Extremities Exam: Pedal Edema (b/l 1+ pitting to mid thigh). absent: Tenderness Additional comments: pedal pulses 2+ - Neurological Exam Neurological Exam: Alert, Awake, Oriented x3 b/l hand numbness / tingling present this morning - Psychiatric Exam Psychiatric exam: Normal Affect - Skin Skin Exam: Dry, Normal Color, Warm Assessment and Plan - Assessment and Plan (Free Text) Assessment: 71 year old male with past medical history including DC, CAD with history of CABG and valve replacement 6-7 years ago. Reports worstenting SOB and dizziness with associated swelling of bilateral LE for past 2-3 days. Admits this is the first time he has experienced these symptoms. SOB is worse when he lays flat. -Discharge planning to [facility] once INR in 2.5-3.5 range and SOB is better controlled. Case working on logistics. Plan: COPD (chronic obstructive pulmonary disease) -01/19-01/20: Continue BIPAP, it helps however patient sometimes refuses despite being SOB. -01/16: RAPID called due to SOB. BP 80/50's. Bolused 500cc NS. Ordered BIPAP and ABG, however patient refused. Placed back on NC 3L. -01/14-01/15: Patient complaining of SOB with exertion and orthopnea. Maintain Head of bed elevated 30 degrees. -01/13: PT session: 98% O2 at 2L at rest, 96% room air at rest sitting, 82% room air during ambulation, 88% at 2 liter ambulation. -01/12: Walked 20 steps today down bruno, and patient became dizzy, SOB, and almost collapsed. - Solumedrol 40mg IVP Q8H [facility] (01/12) - Consulted Pulmonology, Dr. Cobb, f/u recs - Aware of HR in 140's and SOB after eating and low levels of exertion. -f/u ABG (not collected) -LDH 654H -HIV - negative -planning for home O2 -persistent shortness of breath - Patient with long history of smoking most likely has underlying COPD. Nebulizer treatment. Inhaled steroids. Spiriva. PFT as out pt Cough, acute -01/19: Persists. Continue Mucinex. -01/15: patient developed productive cough with yellow sputum today. -Mucinex 600mg PO BID. Systolic dysfunction with acute on chronic heart failure -01/16: RAPID called due to SOB. BP 80/50's. Bolused 500cc NS. Ordered BIPAP and ABG, however patient refused. Placed back on NC 3L. ProBNP 4070H (less than # on admission) and KACY negative. -01/16: Decrease to Lasix 40mg PO daily (was BID). Admit to telemetry, BNP 4560 on admission Consulted Cardiology, Dr. Arguelles - f/u recs -01/19: HOLD LASIX FOR 1 TO 2 DAYS AND CONT MUCINEX. PT PRERENAL AND APPEARS DRY. ON BOTH LASIX AND SPIRONOLACTONE. -SOB APPEARS TO BE SECONDARY TO PULM ETIOLOGY. IMPROVES WITH NEBS. PT WITH RHONCHI B/L. MAY BENEFIT FROM PULM TOILET. -[facility]. -likely deconditioned. will benefit from rehab - EF 10-15%, mechanical MV- no regurg, tricuspid regurg. see full report Digoxin 0.125mg Lisinopril 10mg daily Aldactone 25mg PO Daily patient with AICD, will check echo to determine EF CXR 01/03: mild cardiomegaly, mild pulmonary venous congestion. s/p sternotomy, aortic valve replacement, AICD H/O mitral valve replacement with mechanical valve Cardiac valve replacement 6-7yrs ago Consulted Cardiology, Dr. Arguelles - f/u recs -echocardiogram reviewed. valve leaflets are opening and functional. There is no signficant gradient across the valve. -recommend INR 2.5 to 3.5. STOP Lovenox 01/11 STOP Heparin Drip - cardiac protocol, with bolus (because patient is refusing blood draws) 01/07: INR 1.3 01/08: INR refused, Coumadin 10mg 01/09: INR 1.5, Coumadin 10mg 01/10: INR 2.0, Coumadin 10mg 01/11: INR 2.4, Coumadin 7.5mg; patient received one more dose of Lovenox 80mg SC today, now discontinued as bridge complete. 01/12: INR 2.5, Coumadin 7.5mg 01/13: INR 3.1, Coumadin 5mg 01/14: INR 3.7, Coumadin 5mg (stopped by pharmacy) 01/15: INR 2.8, Coumadin 5mg 01/16: INR 2.6, Coumadin 4mg 01/17: INR 2.7, Coumadin 4 mg 01/18: INR 2.3 Coumadin 4mg 01/19: INR 2.1, Coumadin 6mg 01/20: INR 2.6, Coumadin 5mg, f/u INR Chronic atrial fibrillation Consulted Cardiology, Dr. Arguelles - f/u recs -Rate controlled -echocardiogram reviewed. valve leaflets are opening and functional. There is no signficant gradient across the valve. -recommend INR 2.5 to 3.5. -See PT/INR trends above Coumadin as above STOP Lovenox 01/11 CAD (coronary artery disease) Consulted Cardiology, Dr. Arguelles - f/u recs -Aware of HR in 140's and SOB after eating and low levels of exertion. -unknown graft status. no evidence of ischemia at present -No current angina History of DC (myocardial infarction) HOLD Crestor 10mg PO HS (last dose 01/18- due to elevated LFTs) ROMIs negative x3 EKG paced Denies chest pain Transaminitis, acute 01/20: AST 75 / ALT 205 -> HOLD Crestor 10mg PO HS (last dose 01/18- due to elevated LFTs) 01/19: AST 70 / ALT 201 - increasing -> hold crestor for 2 nights 01/19, 01/20 01/16: AST 90 / ALT 164 - increasing -> hold Crestor tonight. - AST 77 / ALT 98 -> previously normal. - Continue to monitor Electrolyte Imbalance Hyperkalemia - resolved Hypokalemia, Tachycardia 01/20: HR WNL today. 01/13: Patient becomes SOB very easily, desaturating to 82% while ambulating. Anytime he eats or gets up, HR climbs into 140's Continue Digoxin 0.125mg EKG in ER: sinus tachycardia at 100, paced, incomplete RBBB Discontinued cardizem drip of 5mg/h started in the ER Lower extremity edema LE Duplex - negative. see full report. Prophylactic measure Coumadin as above. protonix 40mg daily SCD contraindicated due to LE edema [All management as per Dr. Otoole] <Johnnie Otoole Jr. - Last Filed: 01/21/17 14:53> Objective - Vital Signs/Intake and Output Vital Signs (last 24 hours): Temp Pulse Resp BP Pulse Ox 97.4 F L 70 18 106/71 100 01/21/17 07:02 01/21/17 08:00 01/21/17 07:02 01/21/17 07:02 01/21/17 07:02 Intake and Output: 01/21/17 01/21/17 06:59 18:59 Intake Total 500 Output Total 1100 Balance -600 - Medications Medications: Current Medications Albuterol/Ipratropium (Duoneb 3 Mg/0.5 Mg (3 Ml) Ud) 3 ml INH RQ6 [facility] Last Admin: 01/21/17 13:26 Dose: 3 ml Budesonide (Pulmicort Respules) 0.5 mg INH RQ12 [facility] Last Admin: 01/21/17 08:06 Dose: 0.5 mg Digoxin (Lanoxin) 0.125 mg PO DAILY@1800 [facility] Last Admin: 01/20/17 21:00 Dose: 0.125 mg Guaifenesin (Mucinex La) 600 mg PO BID [facility] Last Admin: 01/21/17 09:31 Dose: 600 mg Methylprednisolone (Solu-Medrol) 40 mg IVP Q8 [facility] Last Admin: 01/21/17 13:00 Dose: 40 mg Rosuvastatin Calcium (Crestor) 10 mg PO HS [facility] Last Admin: 01/18/17 22:03 Dose: 10 mg Tiotropium [place] (Spiriva) 18 mcg INH RQ24 [facility] Last Admin: 01/21/17 08:06 Dose: 18 mcg - Labs Labs: 01/21/17 11:01 01/21/17 11:01 PT 29.8 SECONDS (9.7-12.2) H* 01/21/17 11:01 INR 2.6 01/21/17 11:01 APTT 30 SECONDS (21-34) 01/21/17 11:01 Attending/Attestation - Attestation I have personally seen and examined this patient.: Yes I have fully participated in the care of the patient.: Yes I have reviewed all pertinent clinical information, including history, physical exam and plan: Yes Notes (Text): 01/21/17 14:53 Patient seen and examined with the resident. Reviewed resident note and agree with findings and plan of care. [ ]
[2017-01-20] MEDS: guaiFENesin 600 mg ER Tab PO SCH ×2 (08:59→21:00)
[2017-01-20 11:15] LABS: CHLORIDE 93 mmol/L (98-107)
[2017-01-20 11:16] LABS: POTASSIUM 4.5 mmol/L (3.6-5.2); SODIUM 132 mmol/L (132-148)
[2017-01-20 11:18] LABS: ALB/GLOB RATIO 1.2 (1.0-2.1); ALKALINE PHOSPHATASE 77 U/L (38-126); AST/SGOT 75 U/L (17-59); BILIRUBIN,TOTAL 0.4 mg/dL (0.2-1.3); BLOOD UREA NITROGEN 40 mg/dL (9-20); CARBON DIOXIDE 27 mmol/L (22-30); GFR AFRICAN-AMERICAN > 60; TOTAL PROTEIN 6.3 g/dL (6.3-8.3)
[2017-01-20 11:19] LABS: ALT/SGPT 205 U/L (21-72); CALCIUM 9.2 mg/dl (8.6-10.4); GLUCOSE,RANDOM 196 mg/dL (75-110); MAGNESIUM 2.1 mg/dL (1.6-2.3); PHOSPHOROUS 3.1 mg/dL (2.5-4.5)
[2017-01-20 17:15] LABS: BASO % 0.1 % (0.0-2.0); HEMATOCRIT 41.8 % (35.0-51.0); LYMPH # 0.2 K/uL (1.0-4.3); LYMPH % 1.6 % (20.0-40.0); MEAN CELL VOLUME 81.5 fL (80.0-94.0); MEAN CORPUSCULAR HEMOGLOBIN 26.1 pg (27.0-31.0); MEAN PLATELET VOLUME 8.1 fL (7.2-11.7); MONO # 1.5 K/uL (0.0-0.8); MONO % 12.8 % (0.0-10.0); PLATELET COUNT 194 K/uL (130-400); RED CELL DISTRIBUTION WIDTH 18.3 % (11.5-14.5); WHITE BLOOD COUNT 11.9 K/uL (4.8-10.8)
[2017-01-20 17:25] LABS: INR 2.6
[2017-01-20 17:34] LABS: NEUTROPHIL 87 % (50-75); TOTAL CELLS COUNTED 100
--- NOTE | 2017-01-20 18:49 | CP.PCM.PN ---
Subjective - Date & Time of Evaluation Date of Evaluation: 01/20/17 Time of Evaluation: 19:00 - Subjective Subjective: patient seen and examined. Still complaining of dyspnea on minimal exertion On BiPAP at night Afebrile denies any chest pain Objective - Vital Signs/Intake and Output Vital Signs (last 24 hours): Temp Pulse Resp BP Pulse Ox 98 F 86 20 98/56 L 100 01/20/17 15:56 01/20/17 17:00 01/20/17 15:56 01/20/17 15:56 01/20/17 15:56 Intake and Output: 01/20/17 01/20/17 06:59 18:59 Intake Total 320 Output Total 1650 Balance -1330 - Medications Medications: Current Medications Albuterol/Ipratropium (Duoneb 3 Mg/0.5 Mg (3 Ml) Ud) 3 ml INH RQ6 [facility] Last Admin: 01/20/17 13:12 Dose: 3 ml Budesonide (Pulmicort Respules) 0.5 mg INH RQ12 [facility] Last Admin: 01/20/17 07:52 Dose: Not Given Digoxin (Lanoxin) 0.125 mg PO DAILY@1800 [facility] Last Admin: 01/19/17 17:37 Dose: 0.125 mg Guaifenesin (Mucinex La) 600 mg PO BID [facility] Last Admin: 01/20/17 08:59 Dose: 600 mg Methylprednisolone (Solu-Medrol) 40 mg IVP Q8 [facility] Last Admin: 01/20/17 14:01 Dose: 40 mg Rosuvastatin Calcium (Crestor) 10 mg PO HS [facility] Last Admin: 01/18/17 22:03 Dose: 10 mg Tiotropium [place] (Spiriva) 18 mcg INH RQ24 [facility] Last Admin: 01/20/17 07:52 Dose: Not Given Warfarin Sodium (Coumadin) 5 mg PO 1800 [facility] Stop: 01/20/17 18:32 - Labs Labs: 01/20/17 17:09 01/20/17 11:00 PT 29.5 SECONDS (9.7-12.2) H* D 01/20/17 17:09 INR 2.6 D 01/20/17 17:09 APTT 29 SECONDS (21-34) 01/20/17 17:09 - Head Exam Head Exam: ATRAUMATIC, NORMOCEPHALIC - Eye Exam Eye Exam: Normal appearance - ENT Exam ENT Exam: Mucous Membranes Moist - Neck Exam Neck Exam: Normal Inspection - Respiratory Exam Respiratory Exam: Rales, Rhonchi - Cardiovascular Exam Cardiovascular Exam: Irregular Rhythm - GI/Abdominal Exam GI & Abdominal Exam: Soft, Normal Bowel Sounds - Extremities Exam Extremities Exam: Normal Inspection - Neurological Exam Neurological Exam: Awake, Oriented x3 Assessment and Plan (1) COPD (chronic obstructive pulmonary disease) Assessment & Plan: continue BiPAP as needed continue IV steroids and bronchodilators will need home oxygen Status: Acute (2) Acute exacerbation of CHF (congestive heart failure) Status: Acute (3) Chronic atrial fibrillation Status: Chronic
[2017-01-20] MEDS: Digoxin 125 mcg (0.125 mg) Tab PO SCH (21:00)
[2017-01-21] MEDS: Albuterol-Ipratrop 3 mg / 0.5 (3 ml) UD INH SCH ×4 (02:09→19:56)
[2017-01-21] MEDS: MethylPREDNISolone 40 mg Vial IVP SCH ×3 (05:18→21:20)
--- NOTE | 2017-01-21 07:38 | CP.PCM.PN ---
<Lenny Adam - Last Filed: 01/21/17 19:38> Subjective - Date & Time of Evaluation Date of Evaluation: 01/21/17 Time of Evaluation: 07:15 - Subjective Subjective: PGY-[address] Diaz service Patient seen and examined at bedside. No overnight events as per nursing. Patient wore BIPAP throughout the night, for the first time, reporting that it helped him. Mild non-productive cough, will continue mucinex. Orthopnea and SOB at rest persist. Denies f/c, palpitations, n/v, d/c, or any additional complaints. Objective - Vital Signs/Intake and Output Vital Signs (last 24 hours): Temp Pulse Resp BP Pulse Ox 98.0 F 85 20 107/73 97 01/20/17 23:35 01/21/17 02:10 01/20/17 23:35 01/20/17 23:35 01/20/17 23:35 Intake and Output: 01/21/17 01/21/17 06:59 18:59 Intake Total 500 Output Total 1100 Balance -600 - Medications Medications: Current Medications Albuterol/Ipratropium (Duoneb 3 Mg/0.5 Mg (3 Ml) Ud) 3 ml INH RQ6 [facility] Last Admin: 01/21/17 02:09 Dose: 3 ml Budesonide (Pulmicort Respules) 0.5 mg INH RQ12 [facility] Last Admin: 01/20/17 19:32 Dose: 0.5 mg Digoxin (Lanoxin) 0.125 mg PO DAILY@1800 [facility] Last Admin: 01/20/17 21:00 Dose: 0.125 mg Guaifenesin (Mucinex La) 600 mg PO BID [facility] Last Admin: 01/20/17 21:00 Dose: 600 mg Methylprednisolone (Solu-Medrol) 40 mg IVP Q8 [facility] Last Admin: 01/21/17 05:18 Dose: 40 mg Rosuvastatin Calcium (Crestor) 10 mg PO HS [facility] Last Admin: 01/18/17 22:03 Dose: 10 mg Tiotropium [place] (Spiriva) 18 mcg INH RQ24 [facility] Last Admin: 01/20/17 07:52 Dose: Not Given - Labs Labs: 01/20/17 17:09 01/20/17 11:00 PT 29.5 SECONDS (9.7-12.2) H* D 01/20/17 17:09 INR 2.6 D 01/20/17 17:09 APTT 29 SECONDS (21-34) 01/20/17 17:09 - Additional Findings Additional findings: - Constitutional Appears: Non-toxic, No Acute Distress - Head Exam Head Exam: ATRAUMATIC - Eye Exam Eye Exam: EOMI - ENT Exam ENT Exam: Mucous Membranes Moist - Respiratory Exam Respiratory Exam: Decreased Breath Sounds, Wheezes, Rhonchi (mid/upper zones b/l ), Respiratory Distress (orthopnea). -desaturates to 82% while walking, 88% with NC 2L - Cardiovascular Exam Cardiovascular Exam: REGULAR RHYTHM, +S1, +S2 -Tender to palpation at R sternal border, 2nd rib. Protrusion noted (chronic) -Waxing/waning tenderness to palpation over site of pacemaker (chronic) - GI/Abdominal Exam GI & Abdominal Exam: Soft, Normal Bowel Sounds, absent: Tenderness - Extremities Exam Extremities Exam: Pedal Edema (b/l 1+ pitting to mid thigh). absent: Tenderness Additional comments: pedal pulses 2+ - Neurological Exam Neurological Exam: Alert, Awake, Oriented x3 -waxing/waning b/l hand numbness / tingling (present when more SOB). - Psychiatric Exam Psychiatric exam: Normal Affect - Skin Skin Exam: Dry, Normal Color, Warm Assessment and Plan - Assessment and Plan (Free Text) Assessment: 71 year old male with past medical history including OK, CAD with history of CABG and valve replacement 6-7 years ago. Reports worstenting SOB and dizziness with associated swelling of bilateral LE for past 2-3 days. Admits this is the first time he has experienced these symptoms. SOB is worse when he lays flat. -Discharge planning to [facility] once INR in 2.5-3.5 range and SOB is better controlled. Case working on logistics. Plan: COPD (chronic obstructive pulmonary disease) -01/19-01/21: Continue BIPAP, patient more compliant (sometimes refuses despite being SOB). -01/16: RAPID called due to SOB. BP 80/50's. Bolused 500cc NS. Ordered BIPAP and ABG, however patient refused. Placed back on NC 3L. -01/14-01/15: Patient complaining of SOB with exertion and orthopnea. Maintain Head of bed elevated 30 degrees. -01/13: PT session: 98% O2 at 2L at rest, 96% room air at rest sitting, 82% room air during ambulation, 88% at 2 liter ambulation. -01/12: Walked 20 steps today down [address]uno, and patient became dizzy, SOB, and almost collapsed. - Solumedrol 40mg IVP Q8H [facility] (01/12) - Consulted Pulmonology, Dr. Cobb, f/u recs - Aware of HR in 140's and SOB after eating and low levels of exertion. -f/u ABG (not collected) -LDH 654H -HIV - negative -planning for home O2 -persistent shortness of breath - Patient with long history of smoking most likely has underlying COPD. Nebulizer treatment. Inhaled steroids. Spiriva. PFT as out pt Cough, acute -01/19-01/21: Persists. Continue Mucinex. -01/15: patient developed productive cough with yellow sputum today. -Mucinex 600mg PO BID. Systolic dysfunction with acute on chronic heart failure -01/16: RAPID called due to SOB. BP 80/50's. Bolused 500cc NS. Ordered BIPAP and ABG, however patient refused. Placed back on NC 3L. ProBNP 4070H (less than # on admission) and KACY negative. -01/16: Decrease to Lasix 40mg PO daily (was BID). Admit to telemetry, BNP 4560 on admission Consulted Cardiology, Dr. Arguelles - f/u recs -01/19: HOLD LASIX FOR 1 TO 2 DAYS AND CONT MUCINEX. PT PRERENAL AND APPEARS DRY. ON BOTH LASIX AND SPIRONOLACTONE. -SOB APPEARS TO BE SECONDARY TO PULM ETIOLOGY. IMPROVES WITH NEBS. PT WITH RHONCHI B/L. MAY BENEFIT FROM PULM TOILET. -will attempt to obtain company of AICD for interrogation. -likely deconditioned. will benefit from rehab - EF 10-15%, mechanical MV- no regurg, tricuspid regurg. see full report Digoxin 0.125mg Lisinopril 10mg daily Aldactone 25mg PO Daily patient with AICD, will check echo to determine EF CXR 01/03: mild cardiomegaly, mild pulmonary venous congestion. s/p sternotomy, aortic valve replacement, AICD H/O mitral valve replacement with mechanical valve Cardiac valve replacement 6-7yrs ago Consulted Cardiology, Dr. Arguelles - f/u recs -echocardiogram reviewed. valve leaflets are opening and functional. There is no signficant gradient across the valve. -recommend INR 2.5 to 3.5. STOP Lovenox 3/ STOP Heparin Drip - cardiac protocol, with bolus (because patient is refusing blood draws) 01/07: INR 1.3 01/08: INR refused, Coumadin 10mg 01/09: INR 1.5, Coumadin 10mg 01/10: INR 2.0, Coumadin 10mg 01/11: INR 2.4, Coumadin 7.5mg; patient received one more dose of Lovenox 80mg SC today, now discontinued as bridge complete. 01/12: INR 2.5, Coumadin 7.5mg 01/13: INR 3.1, Coumadin 5mg 01/14: INR 3.7, Coumadin 5mg (stopped by pharmacy) 01/15: INR 2.8, Coumadin 5mg 01/16: INR 2.6, Coumadin 4mg 01/17: INR 2.7, Coumadin 4 mg 01/18: INR 2.3 Coumadin 4mg 01/19: INR 2.1, Coumadin 6mg 01/20: INR 2.6, Coumadin 5mg 01/21: INR 2.6, Coumadin 5mg, f/u INR Chronic atrial fibrillation Consulted Cardiology, Dr. Arguelles - f/u recs -Rate controlled -echocardiogram reviewed. valve leaflets are opening and functional. There is no signficant gradient across the valve. -recommend INR 2.5 to 3.5. -See PT/INR trends above Coumadin as above STOP Lovenox / CAD (coronary artery disease) Consulted Cardiology, Dr. Arguelles - f/u recs -Aware of HR in 140's and SOB after eating and low levels of exertion. -unknown graft status. no evidence of ischemia at present -No current angina History of OK (myocardial infarction) HOLD Crestor 10mg PO HS (last dose 01/18- due to elevated LFTs) ROMIs negative x3 EKG paced Denies chest pain Transaminitis, acute 01/21: AST 57 / ALT 188, decreasing. HOLD Crestor 10mg PO HS (last dose 01/18- due to elevated LFTs) 01/20: AST 75 / ALT 205 01/19: AST 70 / ALT 201 - increasing -> hold crestor for 2 nights 01/19, 01/20 01/16: AST 90 / ALT 164 - increasing -> hold Crestor tonight. - AST 77 / ALT 98 -> previously normal. - Continue to monitor Electrolyte Imbalance Hyperkalemia - resolved Hypokalemia, Tachycardia 01/20-01/21: HR WNL 01/13: Patient becomes SOB very easily, desaturating to 82% while ambulating. Anytime he eats or gets up, HR climbs into 140's Continue Digoxin 0.125mg EKG in ER: sinus tachycardia at 100, paced, incomplete RBBB Discontinued cardizem drip of 5mg/h started in the ER Lower extremity edema LE Duplex - negative. see full report. Prophylactic measure Coumadin as above. protonix 40mg daily SCD contraindicated due to LE edema [All management as per Dr. Otoole] <Johnnie Otoole Jr. - Last Filed: 01/25/17 14:01> Objective - Vital Signs/Intake and Output Vital Signs (last 24 hours): Temp Pulse Resp BP Pulse Ox 97.7 F 71 18 112/65 99 01/25/17 09:04 01/25/17 09:04 01/25/17 09:04 01/25/17 10:46 01/25/17 09:04 Intake and Output: 01/25/17 01/25/17 06:59 18:59 Output Total 1300 Balance -1300 - Medications Medications: Current Medications Albuterol/Ipratropium (Duoneb 3 Mg/0.5 Mg (3 Ml) Ud) 3 ml INH RQ6 [facility] Last Admin: 01/25/17 13:05 Dose: 3 ml Budesonide (Pulmicort Respules) 0.5 mg INH RQ12 [facility] Last Admin: 01/25/17 07:30 Dose: 0.5 mg Digoxin (Lanoxin) 0.125 mg PO DAILY@1800 [facility] Last Admin: 01/24/17 18:23 Dose: 0.125 mg Furosemide (Lasix) 40 mg IVP DAILY [facility] Last Admin: 01/25/17 10:46 Dose: 40 mg Guaifenesin (Mucinex La) 600 mg PO BID [facility] Last Admin: 01/25/17 10:47 Dose: 600 mg Methylprednisolone (Solu-Medrol) 40 mg IVP Q8 [facility] Last Admin: 01/25/17 05:56 Dose: 40 mg Rosuvastatin Calcium (Crestor) 10 mg PO HS [facility] Last Admin: 01/18/17 22:03 Dose: 10 mg Spironolactone (Aldactone) 25 mg PO DAILY [facility] Last Admin: 01/25/17 10:46 Dose: 25 mg Tiotropium [place] (Spiriva) 18 mcg INH RQ24 [facility] Last Admin: 01/25/17 07:45 Dose: 18 mcg - Labs Labs: 01/24/17 11:33 01/24/17 11:33 PT 42.4 SECONDS (9.7-12.2) H* D 01/24/17 11:33 INR 3.6 01/24/17 11:33 APTT 30 SECONDS (21-34) 01/24/17 11:33 Attending/Attestation - Attestation I have personally seen and examined this patient.: Yes I have fully participated in the care of the patient.: Yes I have reviewed all pertinent clinical information, including history, physical exam and plan: Yes Notes (Text): 01/25/17 14:01 Patient seen and examined with the resident. Reviewed resident note and agree with findings and plan of care. [ ]
[2017-01-21] MEDS: Tiotropium 18 mcg Cap For Inhalation INH SCH (08:06)
[2017-01-21] MEDS: Budesonide 0.5 mg/2 ml Inhal Susp UD INH SCH ×2 (08:06→19:56)
[2017-01-21] MEDS: guaiFENesin 600 mg ER Tab PO SCH ×2 (09:31→17:26)
--- NOTE | 2017-01-21 10:37 | CP.PCM.PN ---
Subjective - Date & Time of Evaluation Date of Evaluation: 01/21/17 Time of Evaluation: 10:00 - Subjective Subjective: Patient was seen and examined at bedside. Patient appeared to be in no acute distress. Patient continues to complain of SOB and wheezing. Patient states that BiPAP treatment greatly helps him at night. Though patient is SOB upon examination, he was able to converse without the aid of using his BiPAP Objective - Vital Signs/Intake and Output Vital Signs (last 24 hours): Temp Pulse Resp BP Pulse Ox 97.4 F L 75 18 106/71 100 01/21/17 07:02 01/21/17 07:02 01/21/17 07:02 01/21/17 07:02 01/21/17 07:02 Intake and Output: 01/21/17 01/21/17 06:59 18:59 Intake Total 500 Output Total 1100 Balance -600 - Medications Medications: Current Medications Albuterol/Ipratropium (Duoneb 3 Mg/0.5 Mg (3 Ml) Ud) 3 ml INH RQ6 [facility] Last Admin: 01/21/17 08:06 Dose: 3 ml Budesonide (Pulmicort Respules) 0.5 mg INH RQ12 [facility] Last Admin: 01/21/17 08:06 Dose: 0.5 mg Digoxin (Lanoxin) 0.125 mg PO DAILY@1800 [facility] Last Admin: 01/20/17 21:00 Dose: 0.125 mg Guaifenesin (Mucinex La) 600 mg PO BID [facility] Last Admin: 01/21/17 09:31 Dose: 600 mg Methylprednisolone (Solu-Medrol) 40 mg IVP Q8 [facility] Last Admin: 01/21/17 05:18 Dose: 40 mg Rosuvastatin [place]cium (Crestor) 10 mg PO HS [facility] Last Admin: 01/18/17 22:03 Dose: 10 mg Tiotropium [place] (Spiriva) 18 mcg INH RQ24 [facility] Last Admin: 01/21/17 08:06 Dose: 18 mcg - Labs Labs: 01/20/17 17:09 01/20/17 11:00 PT 29.5 SECONDS (9.7-12.2) H* D 01/20/17 17:09 INR 2.6 D 01/20/17 17:09 APTT 29 SECONDS (21-34) 01/20/17 17:09 - Constitutional Appears: Non-toxic, No Acute Distress - Head Exam Head Exam: NORMAL INSPECTION - Eye Exam Eye Exam: Normal appearance - ENT Exam ENT Exam: Mucous Membranes Moist - Respiratory Exam Respiratory Exam: Prolonged Expiratory Phase, Rales, Wheezes - Cardiovascular Exam Cardiovascular Exam: REGULAR RHYTHM - Neurological Exam Neurological Exam: Alert, Awake - Psychiatric Exam Psychiatric exam: Normal Affect, Normal Mood - Skin Skin Exam: Dry, Intact, Normal Color, Warm Assessment and Plan (1) COPD (chronic obstructive pulmonary disease) Assessment & Plan: Continue duonebs, pulmicort, solu-medrol, spirivia. Patient is now agreeing to use BiPAP regularly, especially at night when he sleeps. Recommend outpatient treatment followup for COPD and CHF. Recommend home oxygen Status: Acute (2) Acute exacerbation of CHF (congestive heart failure) Status: Acute (3) Chronic atrial fibrillation Status: Chronic
[2017-01-21 11:06] LABS: BASO % 0.1 % (0.0-2.0); HEMATOCRIT 38.9 % (35.0-51.0); LYMPH # 0.2 K/uL (1.0-4.3); MEAN CELL VOLUME 80.6 fL (80.0-94.0); MEAN CORPUSCULAR HEMOGLOBIN 26.1 pg (27.0-31.0); MEAN CORPUSCULAR HGB CONC 32.4 g/dL (33.0-37.0); MEAN PLATELET VOLUME 8.2 fL (7.2-11.7); MONO # 0.6 K/uL (0.0-0.8); PLATELET COUNT 188 K/uL (130-400); RED CELL DISTRIBUTION WIDTH 18.5 % (11.5-14.5); WHITE BLOOD COUNT 10.5 K/uL (4.8-10.8)
[2017-01-21 11:19] LABS: CHLORIDE 93 mmol/L (98-107); INR 2.6; POTASSIUM 4.6 mmol/L (3.6-5.2); SODIUM 129 mmol/L (132-148)
[2017-01-21 11:21] LABS: BILIRUBIN,TOTAL 0.4 mg/dL (0.2-1.3); CARBON DIOXIDE 27 mmol/L (22-30); GFR AFRICAN-AMERICAN > 60
[2017-01-21 11:22] LABS: ALB/GLOB RATIO 1.1 (1.0-2.1); ALKALINE PHOSPHATASE 69 U/L (38-126); ALT/SGPT 188 U/L (21-72); AST/SGOT 57 U/L (17-59); BLOOD UREA NITROGEN 38 mg/dL (9-20); CALCIUM 8.9 mg/dl (8.6-10.4); GLUCOSE,RANDOM 166 mg/dL (75-110); MAGNESIUM 2.1 mg/dL (1.6-2.3); PHOSPHOROUS 3.1 mg/dL (2.5-4.5); TOTAL PROTEIN 5.5 g/dL (6.3-8.3)
[2017-01-21 11:43] LABS: NEUTROPHIL 94 % (50-75); TOTAL CELLS COUNTED 100
[2017-01-21] MEDS: Digoxin 125 mcg (0.125 mg) Tab PO SCH (17:26)
--- NOTE | 2017-01-21 18:47 | CARD ---
APPROVED REPORT EKG Measurement Heart [id number] <Conclusion> Bi ventricular pacemaker
[2017-01-22] MEDS: Albuterol-Ipratrop 3 mg / 0.5 (3 ml) UD INH SCH ×5 (01:11→19:21)
[2017-01-22] MEDS: MethylPREDNISolone 40 mg Vial IVP SCH ×3 (06:15→22:05)
[2017-01-22] MEDS: Budesonide 0.5 mg/2 ml Inhal Susp UD INH SCH ×2 (07:23→19:21)
[2017-01-22] MEDS: Tiotropium 18 mcg Cap For Inhalation INH SCH (08:23)
[2017-01-22] MEDS: guaiFENesin 600 mg ER Tab PO SCH ×2 (09:46→18:09)
--- NOTE | 2017-01-22 09:47 | RAD ---
HISTORY: worstening pulmonary congestion COMPARISON: 01/16/2017 FINDINGS: LUNGS: Low lung volumes noted. No consolidation. PLEURA: No significant pleural effusion identified, no pneumothorax apparent. CARDIOVASCULAR: Cardiomegaly with left ventricular enlargement configuration -similar OSSEOUS STRUCTURES: Acromioclavicular joint osteoarthrosis. VISUALIZED UPPER ABDOMEN: Normal. OTHER FINDINGS: Pacemaker/AICD device. Valvular/ring prosthesis . Intact sternal wires noted IMPRESSION: No interval pathology noted
--- NOTE | 2017-01-22 09:58 | CP.PCM.PN ---
<Lenny Adam - Last Filed: 01/22/17 20:31> Subjective - Date & Time of Evaluation Date of Evaluation: 01/22/17 Time of Evaluation: 07:05 - Subjective Subjective: PGY-1 Medicine Note - Dr. Schmidt (covering for Dr Otoole) Patient seen and examined at bedside. No overnight events as per nursing. Patient wore BIPAP throughout the night again, compliant. Non-productive cough persists. Orthopnea and SOB at rest persist. Feels SOB is worst despite mildly improving CXR. Denies f/c, palpitations, n/v, d/c, or any additional complaints. Objective - Vital Signs/Intake and Output Vital Signs (last 24 hours): Temp Pulse Resp BP Pulse Ox 97.7 F 78 20 113/70 100 01/22/17 09:06 01/22/17 09:06 01/22/17 09:06 01/22/17 09:06 01/22/17 09:06 Intake and Output: 01/22/17 01/22/17 06:59 18:59 Intake Total 500 Balance 500 - Medications Medications: Current Medications Albuterol/Ipratropium (Duoneb 3 Mg/0.5 Mg (3 Ml) Ud) 3 ml INH RQ6 [facility] Last Admin: 01/22/17 07:23 Dose: 3 ml Budesonide (Pulmicort Respules) 0.5 mg INH RQ12 [facility] Last Admin: 01/22/17 07:23 Dose: 0.5 mg Digoxin (Lanoxin) 0.125 mg PO DAILY@1800 [facility] Last Admin: 01/21/17 17:26 Dose: 0.125 mg Furosemide (Lasix) 20 mg PO DAILY [facility] Guaifenesin (Mucinex La) 600 mg PO BID [facility] Last Admin: 01/22/17 09:46 Dose: 600 mg Methylprednisolone (Solu-Medrol) 40 mg IVP Q8 [facility] Last Admin: 01/22/17 06:15 Dose: 40 mg Rosuvastatin Calcium (Crestor) 10 mg PO HS [facility] Last Admin: 01/18/17 22:03 Dose: 10 mg Spironolactone (Aldactone) 25 mg PO DAILY [facility] Last Admin: 01/22/17 09:46 Dose: 25 mg Tiotropium [place] (Spiriva) 18 mcg INH RQ24 [facility] Last Admin: 01/22/17 08:23 Dose: 18 mcg - Labs Labs: 01/21/17 11:01 01/21/17 11:01 PT 29.8 SECONDS (9.7-12.2) H* 01/21/17 11:01 INR 2.6 01/21/17 11:01 APTT 30 SECONDS (21-34) 01/21/17 11:01 - Additional Findings Additional findings: - Constitutional Appears: Non-toxic, No Acute Distress - Head Exam Head Exam: ATRAUMATIC - Eye Exam Eye Exam: EOMI - ENT Exam ENT Exam: Mucous Membranes Moist - Respiratory Exam Respiratory Exam: Decreased Breath Sounds, Wheezes, Rhonchi (scattered, improved ), Respiratory Distress (orthopnea). -desaturates to 82% while walking, 88% with NC 2L - Cardiovascular Exam Cardiovascular Exam: REGULAR RHYTHM, +S1, +S2 -Tender to palpation at R sternal border, 2nd rib. Protrusion noted (chronic) -Waxing/waning tenderness to palpation over site of pacemaker (chronic) - GI/Abdominal Exam GI & Abdominal Exam: Soft, Normal Bowel Sounds, absent: Tenderness - Extremities Exam Extremities Exam: Pedal Edema (b/l 1+ pitting to mid thigh). absent: Tenderness Additional comments: pedal pulses 2+ - Neurological Exam Neurological Exam: Alert, Awake, Oriented x3 -waxing/waning b/l hand numbness / tingling (present when more SOB). - Psychiatric Exam Psychiatric exam: Normal Affect - Skin Skin Exam: Dry, Normal Color, Warm Assessment and Plan - Assessment and Plan (Free Text) Assessment: 71 year old male with past medical history including PA, CAD with history of CABG and valve replacement 6-7 years ago. Reports worstenting SOB and dizziness with associated swelling of bilateral LE for past 2-3 days. Admits this is the first time he has experienced these symptoms. SOB is worse when he lays flat. Plan: -Discharge planning to [facility] once INR in 2.5-3.5 range and SOB is better controlled. Case working on logistics. -01/22: Dr. Schmidt recommended pulmonary rehab, f/u. COPD (chronic obstructive pulmonary disease) -01/19-01/22: Continue BIPAP, patient more compliant (sometimes refuses despite being SOB). -01/16: RAPID called due to SOB. BP 80/50's. Bolused 500cc NS. Ordered BIPAP and ABG, however patient refused. Placed back on NC 3L. -01/14-01/15: Patient complaining of SOB with exertion and orthopnea. Maintain Head of bed elevated 30 degrees. -01/13: PT session: 98% O2 at 2L at rest, 96% room air at rest sitting, 82% room air during ambulation, 88% at 2 liter ambulation. -01/12: Walked 20 steps today down [address], and patient became dizzy, SOB, and almost collapsed. - Solumedrol 40mg IVP Q8H JC (01/12) - Consulted Pulmonology, Dr. Cobb, f/u recs - Aware of HR in 140's and SOB after eating and low levels of exertion. -f/u ABG (not collected) -LDH 654H -HIV - negative -planning for home O2 -persistent shortness of breath - Patient with long history of smoking most likely has underlying COPD. Nebulizer treatment. Inhaled steroids. Spiriva. PFT as out pt Systolic dysfunction with acute on chronic heart failure -Chest CT 01/22 - Cardiomegaly. Cardiac valve prosthesis. Left-sided AICD. Dense coronary artery calcifications. -Small consolidation (favored to reflect atelectasis rather than pneumonia) at the left lung base. -Bibasilar atelectasis. Small airways disease. Mild ground-glass and fine nodular opacities within the right upper lobe, possibly infectious or inflammatory. -7 mm left upper lobe pulmonary nodule. Guidelines by the Fleischner society (radiology 2005; 237:390 5-400) suggests that in patients with low risk for lung cancer, with nodules less than or equal to 8 mm in diameter should have follow-up in approximately 6-12 months. In patients with high-risk, including smokers, follow-up is recommended 3-6 months. Patient with a known malignancy for risk for metastases should receive 3 month follow-up. -Hepatic capsular calcification. -Numerous low-density lesions throughout the liver, possibly cysts. Decompressed gallbladder limits evaluation. Bilateral hypodense renal lesions. Right adrenal gland hypertrophy. 12 mm left adrenal gland nodule measures approximately 9 Hounsfield units, likely adenoma. -Consulted Cardiology, Dr. Arguelles - f/u recs -01/22: Lasix 40mg IVP daily, Spironolactone 25mg daily. CXR - no interval pathology change. -01/19: HOLD LASIX FOR 1 TO 2 DAYS AND CONT MUCINEX. PT PRERENAL AND APPEARS DRY. ON BOTH LASIX AND SPIRONOLACTONE. -SOB APPEARS TO BE SECONDARY TO PULM ETIOLOGY. IMPROVES WITH NEBS. PT WITH RHONCHI B/L. MAY BENEFIT FROM PULM TOILET. -will attempt to obtain company of AICD for interrogation. -likely deconditioned. will benefit from rehab - EF 10-15%, mechanical MV- no regurg, tricuspid regurg. see full report -01/16: RAPID called due to SOB. BP 80/50's. Bolused 500cc NS. Ordered BIPAP and ABG, however patient refused. Placed back on NC 3L. ProBNP 4070H (less than # on admission) and KACY negative. -01/16: Decrease to Lasix 40mg PO daily (was BID). Admit to telemetry, BNP 4560 on admission Digoxin 0.125mg Lisinopril 10mg daily Aldactone 25mg PO Daily patient with AICD, will check echo to determine EF CXR 01/03: mild cardiomegaly, mild pulmonary venous congestion. s/p sternotomy, aortic valve replacement, AICD H/O mitral valve replacement with mechanical valve Cardiac valve replacement 6-7yrs ago Consulted Cardiology, Dr. Arguelles - f/u recs -echocardiogram reviewed. valve leaflets are opening and functional. There is no signficant gradient across the valve. -recommend INR 2.5 to 3.5. STOP Lovenox 3/5 STOP Heparin Drip - cardiac protocol, with bolus (because patient is refusing blood draws) 01/07: INR 1.3 01/08: INR refused, Coumadin 10mg 01/09: INR 1.5, Coumadin 10mg 01/10: INR 2.0, Coumadin 10mg 01/11: INR 2.4, Coumadin 7.5mg; patient received one more dose of Lovenox 80mg SC today, now discontinued as bridge complete. 01/12: INR 2.5, Coumadin 7.5mg 01/13: INR 3.1, Coumadin 5mg 01/14: INR 3.7, Coumadin 5mg (stopped by pharmacy) 01/15: INR 2.8, Coumadin 5mg 01/16: INR 2.6, Coumadin 4mg 01/17: INR 2.7, Coumadin 4 mg 01/18: INR 2.3 Coumadin 4mg 01/19: INR 2.1, Coumadin 6mg 01/20: INR 2.6, Coumadin 5mg 01/21: INR 2.6, Coumadin 5mg 01/22: INR 2.5, Coumadin 6mg, f/u INR Chronic atrial fibrillation Consulted Cardiology, Dr. Arguelles - f/u recs -Rate controlled -echocardiogram reviewed. valve leaflets are opening and functional. There is no signficant gradient across the valve. -recommend INR 2.5 to 3.5. -See PT/INR trends above Coumadin as above STOP Lovenox 01/11 Cough, acute -01/19-01/22: Persists. Non-productive. Continue Mucinex. -01/15: patient developed productive cough with yellow sputum today. -Mucinex 600mg PO BID. CAD (coronary artery disease) Consulted Cardiology, Dr. Arguelles - f/u recs -Aware of HR in 140's and SOB after eating and low levels of exertion. -unknown graft status. no evidence of ischemia at present -No current angina History of PA (myocardial infarction) HOLD Crestor 10mg PO HS (last dose 01/18- due to elevated LFTs) ROMIs negative x3 EKG paced Denies chest pain Transaminitis, acute 01/22: AST / ALT down trending - continue to hold Crestor 01/21: AST 57 / ALT 188, decreasing. HOLD Crestor 10mg PO HS (last dose 01/18- due to elevated LFTs) 01/20: AST 75 / ALT 205 01/19: AST 70 / ALT 201 - increasing -> hold crestor for 2 nights 01/19, 01/20 01/16: AST 90 / ALT 164 - increasing -> hold Crestor tonight. - AST 77 / ALT 98 -> previously normal. - Continue to monitor Electrolyte Imbalance Hyperkalemia - resolved Hypokalemia, Tachycardia 01/20-01/21: HR WNL 01/13: Patient becomes SOB very easily, desaturating to 82% while ambulating. Anytime he eats or gets up, HR climbs into 140's Continue Digoxin 0.125mg EKG in ER: sinus tachycardia at 100, paced, incomplete RBBB Discontinued cardizem drip of 5mg/h started in the ER Lower extremity edema LE Duplex - negative. see full report. Prophylactic measure Coumadin as above. protonix 40mg daily SCD contraindicated due to LE edema [All management as per Dr. Otoole] <Delroy Schmidt - Last Filed: 02/17/17 22:11> Objective - Vital Signs/Intake and Output Vital Signs (last 24 hours): Temp Pulse Resp BP Pulse Ox 97.4 F L 82 20 95/64 L 99 02/17/17 16:25 02/17/17 16:25 02/17/17 16:25 02/17/17 16:25 02/17/17 16:25 - Medications Medications: Current Medications Acetylcysteine (Acetylcysteine 20%) 4 ml INH RQ6 [facility] Last Admin: 02/17/17 19:23 Dose: 4 ml Albuterol Sulfate (Albuterol 0.042% Inhal Laura (1.25mg/3ml) Ud) 1.25 mg INH RQ4 [facility] Last Admin: 02/17/17 19:24 Dose: 1.25 mg Benzocaine/Menthol (Cepacol Sore Throat) 1 sarah MT Q6H PRN PRN Reason: Sore Throat Last Admin: 02/15/17 09:32 Dose: 1 sarah Budesonide (Pulmicort Respules) 0.5 mg INH RQ12 [facility] Last Admin: 02/13/17 07:34 Dose: 0.5 mg Digoxin (Lanoxin) 0.25 mg PO DAILY@1800 [facility] Last Admin: 02/17/17 17:15 Dose: 0.25 mg Famotidine (Pepcid) 20 mg PO DAILY [facility] Last Admin: 02/17/17 11:05 Dose: 20 mg Guaifenesin (Mucinex La) 600 mg PO BID [facility] Last Admin: 02/17/17 17:15 Dose: 600 mg Cefepime HCl (Maxipime Iv 2 Gm Premix) 100 mls @ 100 mls/hr IVPB Q12 [facility] Stop: 02/18/17 22:01 Last Admin: 02/17/17 21:02 Dose: Not Given Vancomycin/Sodium Chloride (Vancocin) 200 mls @ 100 mls/hr IVPB DAILY [facility] Last Admin: 02/17/17 11:05 Dose: Not Given Ipratropium [place] (Atrovent) 0.5 mg IH RQ4 [facility] Last Admin: 02/17/17 15:56 Dose: 0.5 mg Lisinopril (Zestril) 2.5 mg PO DAILY [facility] Last Admin: 02/17/17 11:05 Dose: 2.5 mg Prednisone (Prednisone Tab) 20 mg PO DAILY [facility] Last Admin: 02/17/17 11:05 Dose: 20 mg Spironolactone (Aldactone) 25 mg PO DAILY [facility] Last Admin: 02/17/17 11:06 Dose: 25 mg Tiotropium [place] (Spiriva) 18 mcg INH RQ24 [facility] Last Admin: 02/17/17 07:34 Dose: Not Given - Labs Labs: 02/16/17 13:23 02/16/17 13:23 PT 36.3 SECONDS (9.7-12.2) H* D 02/16/17 13:23 INR 3.0 02/16/17 13:23 APTT 41 SECONDS (21-34) H 02/16/17 13:23 Attending/Attestation - Attestation I have personally seen and examined this patient.: Yes I have fully participated in the care of the patient.: Yes I have reviewed all pertinent clinical information, including history, physical exam and plan: Yes
--- NOTE | 2017-01-22 11:14 | CP.PCM.PN ---
Subjective - Date & Time of Evaluation Date of Evaluation: 01/22/17 Time of Evaluation: 08:00 - Subjective Subjective: Patient seen and examined. Complaining of dyspnea on minimal exertion Remains on oxygen For CAT scan of the chest Objective - Vital Signs/Intake and Output Vital Signs (last 24 hours): Temp Pulse Resp BP Pulse Ox 97.7 F 78 20 113/70 100 01/22/17 09:06 01/22/17 09:06 01/22/17 09:06 01/22/17 09:06 01/22/17 09:06 Intake and Output: 01/22/17 01/22/17 06:59 18:59 Intake Total 500 Balance 500 - Medications Medications: Current Medications Albuterol/Ipratropium (Duoneb 3 Mg/0.5 Mg (3 Ml) Ud) 3 ml INH RQ6 [facility] Last Admin: 01/22/17 07:23 Dose: 3 ml Budesonide (Pulmicort Respules) 0.5 mg INH RQ12 [facility] Last Admin: 01/22/17 07:23 Dose: 0.5 mg Digoxin (Lanoxin) 0.125 mg PO DAILY@1800 [facility] Last Admin: 01/21/17 17:26 Dose: 0.125 mg Furosemide (Lasix) 40 mg IVP DAILY [facility] Guaifenesin (Mucinex La) 600 mg PO BID [facility] Last Admin: 01/22/17 09:46 Dose: 600 mg Methylprednisolone (Solu-Medrol) 40 mg IVP Q8 [facility] Last Admin: 01/22/17 06:15 Dose: 40 mg Rosuvastatin Calcium (Crestor) 10 mg PO HS [facility] Last Admin: 01/18/17 22:03 Dose: 10 mg Spironolactone (Aldactone) 25 mg PO DAILY [facility] Last Admin: 01/22/17 09:46 Dose: 25 mg Tiotropium [place] (Spiriva) 18 mcg INH RQ24 [facility] Last Admin: 01/22/17 08:23 Dose: 18 mcg Warfarin Sodium (Coumadin) 6 mg PO 1800 [facility] Stop: 01/22/17 18:01 - Labs Labs: 01/21/17 11:01 01/21/17 11:01 PT 29.8 SECONDS (9.7-12.2) H* 01/21/17 11:01 INR 2.6 01/21/17 11:01 APTT 30 SECONDS (21-34) 01/21/17 11:01 - Head Exam Head Exam: ATRAUMATIC, NORMOCEPHALIC - Eye Exam Eye Exam: Normal appearance - ENT Exam ENT Exam: Mucous Membranes Moist - Neck Exam Neck Exam: Normal Inspection - Respiratory Exam Respiratory Exam: Rales, Rhonchi - Cardiovascular Exam Cardiovascular Exam: REGULAR RHYTHM - GI/Abdominal Exam GI & Abdominal Exam: Soft, Normal Bowel Sounds - Extremities Exam Extremities Exam: Pedal Edema Assessment and Plan (1) COPD (chronic obstructive pulmonary disease) Assessment & Plan: Continue IV steroids and nebulizer treatment Continue oxygen and BiPAP as needed Status: Acute (2) Acute exacerbation of CHF (congestive heart failure) Status: Acute (3) Chronic atrial fibrillation Status: Chronic
[2017-01-22 11:39] LABS: INR 2.5
[2017-01-22 11:48] LABS: CHLORIDE 91 mmol/L (98-107)
[2017-01-22 11:49] LABS: POTASSIUM 4.3 mmol/L (3.6-5.2); SODIUM 130 mmol/L (132-148)
[2017-01-22 11:51] LABS: ALB/GLOB RATIO 1.1 (1.0-2.1); ALKALINE PHOSPHATASE 74 U/L (38-126); AST/SGOT 55 U/L (17-59); BILIRUBIN,TOTAL 0.5 mg/dL (0.2-1.3); BLOOD UREA NITROGEN 38 mg/dL (9-20); CARBON DIOXIDE 28 mmol/L (22-30); GFR AFRICAN-AMERICAN > 60; GLUCOSE,RANDOM 142 mg/dL (75-110); TOTAL PROTEIN 6.1 g/dL (6.3-8.3)
[2017-01-22 11:52] LABS: ALT/SGPT 186 U/L (21-72); CALCIUM 8.9 mg/dl (8.6-10.4); MAGNESIUM 2.1 mg/dL (1.6-2.3); PHOSPHOROUS 2.8 mg/dL (2.5-4.5)
[2017-01-22 12:12] LABS: BASO % 0.1 % (0.0-2.0); HEMATOCRIT 40.7 % (35.0-51.0); LYMPH # 0.3 K/uL (1.0-4.3); LYMPH % 2.1 % (20.0-40.0); MEAN CELL VOLUME 81.1 fL (80.0-94.0); MEAN CORPUSCULAR HEMOGLOBIN 26.4 pg (27.0-31.0); MEAN CORPUSCULAR HGB CONC 32.5 g/dL (33.0-37.0); MEAN PLATELET VOLUME 7.9 fL (7.2-11.7); MONO # 0.9 K/uL (0.0-0.8); MONO % 7.5 % (0.0-10.0); NRBC % 0.1 % (0.0-2.0); PLATELET COUNT 213 K/uL (130-400); RED CELL DISTRIBUTION WIDTH 18.4 % (11.5-14.5); WHITE BLOOD COUNT 12.4 K/uL (4.8-10.8)
--- NOTE | 2017-01-22 12:48 | CP.PCM.PN ---
Subjective - Date & Time of Evaluation Date of Evaluation: 01/22/17 Time of Evaluation: 11:00 - Subjective Subjective: patient has dyspnea. he denies chest pain. Objective - Vital Signs/Intake and Output Vital Signs (last 24 hours): Temp Pulse Resp BP Pulse Ox 97.7 F 78 20 113/70 100 01/22/17 09:06 01/22/17 09:06 01/22/17 09:06 01/22/17 09:06 01/22/17 09:06 Intake and Output: 01/22/17 01/22/17 06:59 18:59 Intake Total 500 Balance 500 - Medications Medications: Current Medications Albuterol/Ipratropium (Duoneb 3 Mg/0.5 Mg (3 Ml) Ud) 3 ml INH RQ6 [facility] Last Admin: 01/22/17 07:23 Dose: 3 ml Budesonide (Pulmicort Respules) 0.5 mg INH RQ12 [facility] Last Admin: 01/22/17 07:23 Dose: 0.5 mg Digoxin (Lanoxin) 0.125 mg PO DAILY@1800 [facility] Last Admin: 01/21/17 17:26 Dose: 0.125 mg Furosemide (Lasix) 40 mg IVP DAILY [facility] Guaifenesin (Mucinex La) 600 mg PO BID [facility] Last Admin: 01/22/17 09:46 Dose: 600 mg Methylprednisolone (Solu-Medrol) 40 mg IVP Q8 [facility] Last Admin: 01/22/17 06:15 Dose: 40 mg Rosuvastatin Calcium (Crestor) 10 mg PO HS [facility] Last Admin: 01/18/17 22:03 Dose: 10 mg Spironolactone (Aldactone) 25 mg PO DAILY [facility] Last Admin: 01/22/17 09:46 Dose: 25 mg Tiotropium [place] (Spiriva) 18 mcg INH RQ24 [facility] Last Admin: 01/22/17 08:23 Dose: 18 mcg Warfarin Sodium (Coumadin) 6 mg PO 1800 [facility] Stop: 01/22/17 18:01 - Labs Labs: 01/22/17 11:20 01/22/17 11:20 PT 28.9 SECONDS (9.7-12.2) H 01/22/17 11:20 INR 2.5 01/22/17 11:20 APTT 30 SECONDS (21-34) 01/22/17 11:20 - Constitutional Appears: Chronically Ill - Head Exam Head Exam: NORMAL INSPECTION - Eye Exam Eye Exam: Normal appearance - ENT Exam ENT Exam: Mucous Membranes Moist - Neck Exam Neck Exam: Full ROM - Respiratory Exam Respiratory Exam: Decreased Breath Sounds - Cardiovascular Exam Cardiovascular Exam: REGULAR RHYTHM - GI/Abdominal Exam GI & Abdominal Exam: Normal Bowel Sounds - Rectal Exam Rectal Exam: Deferred - Extremities Exam Extremities Exam: absent: Pedal Edema - Back Exam Back Exam: NORMAL INSPECTION - Neurological Exam Neurological Exam: Alert - Psychiatric Exam Psychiatric exam: Normal Affect - Skin Skin Exam: Normal Color Assessment and Plan (1) Systolic dysfunction with acute on chronic heart failure Assessment & Plan: will restart IV diuretic therapy Status: Acute (2) Chronic atrial fibrillation Assessment & Plan: continue coumadin. rate controlled Status: Chronic (3) CAD (coronary artery disease) Assessment & Plan: no current angina Status: Chronic (4) H/O mitral valve replacement with mechanical valve Assessment & Plan: INR 2.5-3.5 Status: Chronic
[2017-01-22 12:56] LABS: NEUTROPHIL 92 % (50-75); TOTAL CELLS COUNTED 100
--- NOTE | 2017-01-22 13:31 | CT ---
CT chest without IV contrast Indication: persistent SOB Technique: Contiguous axial images were obtained through the chest without intravenous contrast enhancement. Sagittal and coronal reconstructions were generated and reviewed. Radiation dose (DLP): 729.21 MGy-cm. Comparison: Chest x-ray performed 01/22/17 Findings: Streak artifact obscures evaluation of the neck/upper chest. Limited visualization of the inferior thyroid gland appears heterogeneous. Cardiomegaly. Cardiac valve prosthesis. Left-sided AICD. Dense coronary artery calcifications. Small consolidation at the left lung base. Bibasilar atelectasis. Small airways disease. Mild ground-glass and nodular opacities within the right upper lobe. 7 mm left upper lobe pulmonary nodule (series 3, image 31). Small hiatal hernia/distal esophageal wall thickening. Hepatic capsular calcification. Numerous low-density lesions throughout the liver. Decompressed gallbladder limits evaluation. Bilateral hypodense renal lesions. Right adrenal gland hypertrophy. 12 mm left adrenal gland nodule measures approximately 9 Hounsfield units, likely adenoma. Median sternotomy wires. Degenerative changes of the spine. Impression: Heterogeneous included portions of the thyroid gland. Cardiomegaly. Cardiac valve prosthesis. Left-sided AICD. Dense coronary artery calcifications. Small consolidation (favored to reflect atelectasis rather than pneumonia) at the left lung base. Bibasilar atelectasis. Small airways disease. Mild ground-glass and fine nodular opacities within the right upper lobe, possibly infectious or inflammatory. Recommend attention on follow-up. 7 mm left upper lobe pulmonary nodule. Guidelines by the Fleischner society (radiology 2005; 237:390 5-400) suggests that in patients with low risk for lung cancer, with nodules less than or equal to 8 mm in diameter should have follow-up in approximately 6-12 months. In patients with high-risk, including smokers, follow-up is recommended 3-6 months. Patient with a known malignancy for risk for metastases should receive 3 month follow-up. Hepatic capsular calcification. Numerous low-density lesions throughout the liver, possibly cysts. Decompressed gallbladder limits evaluation. Bilateral hypodense renal lesions. Right adrenal gland hypertrophy. 12 mm left adrenal gland nodule measures approximately 9 Hounsfield units, likely adenoma.
[2017-01-22] MEDS: Digoxin 125 mcg (0.125 mg) Tab PO SCH (18:09)
[2017-01-23] MEDS: Albuterol-Ipratrop 3 mg / 0.5 (3 ml) UD INH SCH ×4 (01:06→20:34)
[2017-01-23] MEDS: MethylPREDNISolone 40 mg Vial IVP SCH ×2 (05:38→21:41)
[2017-01-23] MEDS: Budesonide 0.5 mg/2 ml Inhal Susp UD INH SCH ×2 (07:33→20:34)
[2017-01-23] MEDS: Tiotropium 18 mcg Cap For Inhalation INH SCH (07:33)
--- NOTE | 2017-01-23 08:47 | CP.PCM.PN ---
<Lenny Adam - Last Filed: 01/23/17 23:30> Subjective - Date & Time of Evaluation Date of Evaluation: 01/23/17 Time of Evaluation: 07:20 - Subjective Subjective: PGY-1 Medicine Note - Dr. Schmidt (covering for Dr Otoole) Patient seen and examined at bedside. No overnight events as per nursing. Patient states he is still experiencing SOB and reports that the high flow oxygen mask is not helping, although it is better than NC. States that he has dizziness upon standing/sitting, which has been ongoing since admission. +BM, + urination, +appetite. Denies fever, chills, CP, N/V, D/C. Denies any other complaints. Objective - Vital Signs/Intake and Output Vital Signs (last 24 hours): Temp Pulse Resp BP Pulse Ox 97.4 F L 75 18 103/64 100 01/23/17 07:02 01/23/17 07:02 01/23/17 07:02 01/23/17 07:02 01/23/17 07:02 Intake and Output: 01/23/17 01/23/17 06:59 18:59 Intake Total 120 Output Total 1100 Balance -980 - Medications Medications: Current Medications Albuterol/Ipratropium (Duoneb 3 Mg/0.5 Mg (3 Ml) Ud) 3 ml INH RQ6 [facility] Last Admin: 01/23/17 07:33 Dose: 3 ml Budesonide (Pulmicort Respules) 0.5 mg INH RQ12 [facility] Last Admin: 01/23/17 07:33 Dose: 0.5 mg Digoxin (Lanoxin) 0.125 mg PO DAILY@1800 [facility] Last Admin: 01/22/17 18:09 Dose: 0.125 mg Furosemide (Lasix) 40 mg IVP DAILY [facility] Guaifenesin (Mucinex La) 600 mg PO BID [facility] Last Admin: 01/22/17 18:09 Dose: 600 mg Methylprednisolone (Solu-Medrol) 40 mg IVP Q8 [facility] Last Admin: 01/23/17 05:38 Dose: 40 mg Rosuvastatin Calcium (Crestor) 10 mg PO HS [facility] Last Admin: 01/18/17 22:03 Dose: 10 mg Spironolactone (Aldactone) 25 mg PO DAILY [facility] Last Admin: 01/22/17 09:46 Dose: 25 mg Tiotropium [place] (Spiriva) 18 mcg INH RQ24 [facility] Last Admin: 01/23/17 07:33 Dose: 18 mcg - Labs Labs: 01/22/17 11:20 01/22/17 11:20 PT 28.9 SECONDS (9.7-12.2) H 01/22/17 11:20 INR 2.5 01/22/17 11:20 APTT 30 SECONDS (21-34) 01/22/17 11:20 - Additional Findings Additional findings: - Constitutional Appears: Non-toxic, No Acute Distress - Head Exam Head Exam: ATRAUMATIC - Eye Exam Eye Exam: EOMI - ENT Exam ENT Exam: Mucous Membranes Moist - Respiratory Exam Respiratory Exam: Decreased Breath Sounds, Wheezes (expiratory, diffuse), Rhonchi (scattered, improved), Respiratory Distress (orthopnea). -desaturates to 82% while walking, 88% with NC 2L - Cardiovascular Exam Cardiovascular Exam: REGULAR RHYTHM, +S1, +S2 -Tender to palpation at R sternal border, 2nd rib. Protrusion noted (chronic) -Waxing/waning tenderness to palpation over site of pacemaker (chronic) - GI/Abdominal Exam GI & Abdominal Exam: Soft, Normal Bowel Sounds, Tenderness (+suprapubic tenderness) - Extremities Exam Extremities Exam: Pedal Edema (b/l 1+ pitting to mid thigh). absent: Tenderness Additional comments: pedal pulses 2+ - Neurological Exam Neurological Exam: Alert, Awake, Oriented x3 -waxing/waning b/l hand numbness / tingling (present when more SOB). - Psychiatric Exam Psychiatric exam: Normal Affect - Skin Skin Exam: Dry, Normal Color, Warm Assessment and Plan - Assessment and Plan (Free Text) Assessment: 71 year old male with past medical history including AZ, CAD with history of CABG and valve replacement 6-7 years ago. Reports worstenting SOB and dizziness with associated swelling of bilateral LE for past 2-3 days. Admits this is the first time he has experienced these symptoms. SOB is worse when he lays flat. Plan: -Discharge planning to [facility] once INR in 2.5-3.5 range and SOB is better controlled. Patient has [employer] insurance, case is working on it. -01/22: Dr. Schmidt recommends pulmonary rehab, case is looking into facilities. COPD (chronic obstructive pulmonary disease) -01/19-01/23: Continue BIPAP, patient more compliant (sometimes refuses despite being SOB). -01/16: RAPID called due to SOB. BP 80/50's. Bolused 500cc NS. Ordered BIPAP and ABG, however patient refused. Placed back on NC 3L. -01/14-01/15: Patient complaining of SOB with exertion and orthopnea. Maintain Head of bed elevated 30 degrees. -01/13: PT session: 98% O2 at 2L at rest, 96% room air at rest sitting, 82% room air during ambulation, 88% at 2 liter ambulation. -01/12: Walked 20 steps today down bruno, and patient became dizzy, SOB, and almost collapsed. - Solumedrol 40mg IVP Q8H [facility] (01/12) - Consulted Pulmonology, Dr. Cobb, f/u recs - Aware of HR in 140's and SOB after eating and low levels of exertion. -f/u ABG (not collected) -LDH 654H -HIV - negative -planning for home O2 -persistent shortness of breath - Patient with long history of smoking most likely has underlying COPD. Nebulizer treatment. Inhaled steroids. Spiriva. PFT as out pt Systolic dysfunction with acute on chronic heart failure -Chest CT 01/22 - Cardiomegaly. Cardiac valve prosthesis. Left-sided AICD. Dense coronary artery calcifications. -Small consolidation (favored to reflect atelectasis rather than pneumonia) at the left lung base. -Bibasilar atelectasis. Small airways disease. Mild ground-glass and fine nodular opacities within the right upper lobe, possibly infectious or inflammatory. -7 mm left upper lobe pulmonary nodule. Guidelines by the Fleischner society (radiology 2005; 237:390 5-400) suggests that in patients with low risk for lung cancer, with nodules less than or equal to 8 mm in diameter should have follow-up in approximately 6-12 months. In patients with high-risk, including smokers, follow-up is recommended 3-6 months. Patient with a known malignancy for risk for metastases should receive 3 month follow-up. -Hepatic capsular calcification. -Numerous low-density lesions throughout the liver, possibly cysts. Decompressed gallbladder limits evaluation. Bilateral hypodense renal lesions. Right adrenal gland hypertrophy. 12 mm left adrenal gland nodule measures approximately 9 Hounsfield units, likely adenoma. -Consulted Cardiology, Dr. Arguelles - f/u recs -01/22: Lasix 40mg IVP daily, Spironolactone 25mg daily. CXR - no interval pathology change. -01/19: HOLD LASIX FOR 1 TO 2 DAYS AND CONT MUCINEX. PT PRERENAL AND APPEARS DRY. ON BOTH LASIX AND SPIRONOLACTONE. -SOB APPEARS TO BE SECONDARY TO PULM ETIOLOGY. IMPROVES WITH NEBS. PT WITH RHONCHI B/L. MAY BENEFIT FROM PULM TOILET. -will attempt to obtain company of [facility] for interrogation. -likely deconditioned. will benefit from rehab - EF 10-15%, mechanical MV- no regurg, tricuspid regurg. see full report -01/16: RAPID called due to SOB. BP 80/50's. Bolused 500cc NS. Ordered BIPAP and ABG, however patient refused. Placed back on NC 3L. ProBNP 4070H (less than # on admission) and KACY negative. -01/16: Decrease to Lasix 40mg PO daily (was BID). Admit to telemetry, BNP 4560 on admission Digoxin 0.125mg Lisinopril 10mg daily Aldactone 25mg PO Daily patient with AICD, will check echo to determine EF CXR 01/03: mild cardiomegaly, mild pulmonary venous congestion. s/p sternotomy, aortic valve replacement, AICD H/O mitral valve replacement with mechanical valve Cardiac valve replacement 6-7yrs ago Consulted Cardiology, Dr. Arguelles - f/u recs -echocardiogram reviewed. valve leaflets are opening and functional. There is no signficant gradient across the valve. -recommend INR 2.5 to 3.5. STOP Lovenox 3/5 STOP Heparin Drip - cardiac protocol, with bolus (because patient is refusing blood draws) 01/07: INR 1.3 01/08: INR refused, Coumadin 10mg 01/09: INR 1.5, Coumadin 10mg 01/10: INR 2.0, Coumadin 10mg 01/11: INR 2.4, Coumadin 7.5mg; patient received one more dose of Lovenox 80mg SC today, now discontinued as bridge complete. 01/12: INR 2.5, Coumadin 7.5mg 3/7: INR 3.1, Coumadin 5mg 01/14: INR 3.7, Coumadin 5mg (stopped by pharmacy) 01/15: INR 2.8, Coumadin 5mg 01/16: INR 2.6, Coumadin 4mg 01/17: INR 2.7, Coumadin 4 mg 01/18: INR 2.3 Coumadin 4mg 01/19: INR 2.1, Coumadin 6mg 01/20: INR 2.6, Coumadin 5mg 01/21: INR 2.6, Coumadin 5mg 01/22: INR 2.5, Coumadin 6mg 01/23: INR 2.9, Coumadin 6mg, f/u INR Chronic atrial fibrillation Consulted Cardiology, Dr. Arguelles - f/u recs -Rate controlled -echocardiogram reviewed. valve leaflets are opening and functional. There is no signficant gradient across the valve. -recommend INR 2.5 to 3.5. -See PT/INR trends above Coumadin as above STOP Lovenox 01/11 Cough, acute -01/19-01/22: Persists. Non-productive. Continue Mucinex. -01/15: patient developed productive cough with yellow sputum today. -Mucinex 600mg PO BID. CAD (coronary artery disease) Consulted Cardiology, Dr. Arguelles - f/u recs -Aware of HR in 140's and SOB after eating and low levels of exertion. -unknown graft status. no evidence of ischemia at present -No current angina History of AZ (myocardial infarction) HOLD Crestor 10mg PO HS (last dose 01/18- due to elevated LFTs) ROMIs negative x3 EKG paced Denies chest pain Transaminitis, acute 01/22-01/23: AST / ALT down trending - continue to hold Crestor 01/21: AST 57 / ALT 188, decreasing. HOLD Crestor 10mg PO HS (last dose 01/18- due to elevated LFTs) 01/20: AST 75 / ALT 205 01/19: AST 70 / ALT 201 - increasing -> hold crestor for 2 nights 01/19, 01/20 01/16: AST 90 / ALT 164 - increasing -> hold Crestor tonight. - AST 77 / ALT 98 -> previously normal. - Continue to monitor Electrolyte Imbalance Hyperkalemia - resolved Hypokalemia, Tachycardia 01/20-3/17: HR WNL 3/: Patient becomes SOB very easily, desaturating to 82% while ambulating. Anytime he eats or gets up, HR climbs into 140's Continue Digoxin 0.125mg EKG in ER: sinus tachycardia at 100, paced, incomplete RBBB Discontinued cardizem drip of 5mg/h started in the ER Lower extremity edema LE Duplex - negative. see full report. Prophylactic measure Coumadin as above. protonix 40mg daily SCD contraindicated due to LE edema [All management as per Dr. Otoole] <Delroy Schmidt - Last Filed: 01/24/17 12:15> Objective - Vital Signs/Intake and Output Vital Signs (last 24 hours): Temp Pulse Resp BP Pulse Ox 97.5 F L 86 22 120/70 98 01/24/17 08:11 01/24/17 09:52 01/24/17 09:52 01/24/17 10:23 01/24/17 09:52 Intake and Output: 01/24/17 01/24/17 06:59 18:59 Output Total 750 Balance -750 - Medications Medications: Current Medications Albuterol/Ipratropium (Duoneb 3 Mg/0.5 Mg (3 Ml) Ud) 3 ml INH RQ6 [facility] Last Admin: 01/24/17 07:20 Dose: 3 ml Budesonide (Pulmicort Respules) 0.5 mg INH RQ12 [facility] Last Admin: 01/24/17 07:20 Dose: 0.5 mg Digoxin (Lanoxin) 0.125 mg PO DAILY@1800 [facility] Last Admin: 01/23/17 17:31 Dose: 0.125 mg Furosemide (Lasix) 40 mg IVP DAILY [facility] Last Admin: 01/24/17 10:23 Dose: 40 mg Guaifenesin (Mucinex La) 600 mg PO BID [facility] Last Admin: 01/24/17 10:23 Dose: 600 mg Methylprednisolone (Solu-Medrol) 40 mg IVP Q8 [facility] Last Admin: 01/24/17 05:58 Dose: 40 mg Rosuvastatin Calcium (Crestor) 10 mg PO HS [facility] Last Admin: 01/18/17 22:03 Dose: 10 mg Spironolactone (Aldactone) 25 mg PO DAILY [facility] Last Admin: 01/24/17 10:23 Dose: 25 mg Tiotropium [place] (Spiriva) 18 mcg INH RQ24 [facility] Last Admin: 01/24/17 07:52 Dose: 18 mcg - Labs Labs: 01/24/17 11:33 01/24/17 11:33 PT 33.4 SECONDS (9.7-12.2) H* 01/23/17 10:25 INR 2.9 01/23/17 10:25 APTT 29 SECONDS (21-34) 01/23/17 10:25 Attending/Attestation - Attestation I have personally seen and examined this patient.: Yes I have fully participated in the care of the patient.: Yes I have reviewed all pertinent clinical information, including history, physical exam and plan: Yes Notes (Text): Patient admitted with COPD exacerbation, CHF w/ systolic dysfunction; still short of breath but relatively unchanged; relatively euvolemic on exam; On coumadin for mechanical mitral valve, INR 2.9 close to goal, continue coumadin 6 mg daily; On lasix IV 40 mg daily and spironolactone 25 mg PO daily, continue; On solumedrol 40 mg q8h; unclear benefit at this point, will discuss with pulm about tapering; Dispo: Patient awaiting insurance authorization for [facility] placement.
[2017-01-23] MEDS: guaiFENesin 600 mg ER Tab PO SCH ×2 (09:07→17:31)
[2017-01-23 10:38] LABS: BASO % 0.1 % (0.0-2.0); HEMATOCRIT 40.2 % (35.0-51.0); LYMPH # 0.3 K/uL (1.0-4.3); LYMPH % 2.1 % (20.0-40.0); MEAN CORPUSCULAR HEMOGLOBIN 25.4 pg (27.0-31.0); MEAN CORPUSCULAR HGB CONC 31.7 g/dL (33.0-37.0); MEAN PLATELET VOLUME 7.8 fL (7.2-11.7); MONO # 0.4 K/uL (0.0-0.8); MONO % 3.6 % (0.0-10.0); PLATELET COUNT 222 K/uL (130-400); RED CELL DISTRIBUTION WIDTH 18.3 % (11.5-14.5); WHITE BLOOD COUNT 12.2 K/uL (4.8-10.8)
[2017-01-23 10:51] LABS: INR 2.9
[2017-01-23 10:55] LABS: CHLORIDE 89 mmol/L (98-107)
[2017-01-23 10:56] LABS: POTASSIUM 4.1 mmol/L (3.6-5.2); SODIUM 129 mmol/L (132-148)
[2017-01-23 10:58] LABS: ALKALINE PHOSPHATASE 71 U/L (38-126); AST/SGOT 59 U/L (17-59); BILIRUBIN,TOTAL 0.5 mg/dL (0.2-1.3); CARBON DIOXIDE 29 mmol/L (22-30); GFR AFRICAN-AMERICAN > 60
[2017-01-23 10:59] LABS: ALT/SGPT 167 U/L (21-72); BLOOD UREA NITROGEN 43 mg/dL (9-20); CALCIUM 8.8 mg/dl (8.6-10.4); GLUCOSE,RANDOM 204 mg/dL (75-110); MAGNESIUM 2.1 mg/dL (1.6-2.3); PHOSPHOROUS 3.5 mg/dL (2.5-4.5)
[2017-01-23 11:00] LABS: ALB/GLOB RATIO 1.1 (1.0-2.1)
[2017-01-23 11:21] LABS: NEUTROPHIL 92 % (50-75); TOTAL CELLS COUNTED 100
[2017-01-23] MEDS: Digoxin 125 mcg (0.125 mg) Tab PO SCH (17:31)
[2017-01-24] MEDS: Albuterol-Ipratrop 3 mg / 0.5 (3 ml) UD INH SCH ×4 (01:32→19:10)
[2017-01-24] MEDS: MethylPREDNISolone 40 mg Vial IVP SCH ×3 (05:58→21:58)
[2017-01-24] MEDS: Budesonide 0.5 mg/2 ml Inhal Susp UD INH SCH ×2 (07:20→19:10)
[2017-01-24] MEDS: Tiotropium 18 mcg Cap For Inhalation INH SCH (07:52)
[2017-01-24] MEDS: guaiFENesin 600 mg ER Tab PO SCH ×2 (10:23→18:24)
[2017-01-24 11:42] LABS: BASO # 0.1 K/uL (0.0-0.2); BASO % 0.7 % (0.0-2.0); HEMATOCRIT 42.6 % (35.0-51.0); LYMPH # 0.3 K/uL (1.0-4.3); LYMPH % 1.8 % (20.0-40.0); MEAN CELL VOLUME 80.7 fL (80.0-94.0); MEAN CORPUSCULAR HEMOGLOBIN 26.1 pg (27.0-31.0); MEAN CORPUSCULAR HGB CONC 32.4 g/dL (33.0-37.0); MEAN PLATELET VOLUME 7.9 fL (7.2-11.7); MONO # 0.6 K/uL (0.0-0.8); MONO % 3.8 % (0.0-10.0); PLATELET COUNT 216 K/uL (130-400); RED CELL DISTRIBUTION WIDTH 18.1 % (11.5-14.5)
[2017-01-24 11:46] LABS: CHLORIDE 89 mmol/L (98-107)
[2017-01-24 11:48] LABS: POTASSIUM 4.6 mmol/L (3.6-5.2); SODIUM 130 mmol/L (132-148)
[2017-01-24 11:50] LABS: ALB/GLOB RATIO 1.2 (1.0-2.1); ALKALINE PHOSPHATASE 72 U/L (38-126); ALT/SGPT 164 U/L (21-72); AST/SGOT 51 U/L (17-59); BILIRUBIN,TOTAL 0.5 mg/dL (0.2-1.3); BLOOD UREA NITROGEN 39 mg/dL (9-20); CARBON DIOXIDE 28 mmol/L (22-30); GFR AFRICAN-AMERICAN > 60; TOTAL PROTEIN 6.2 g/dL (6.3-8.3)
[2017-01-24 11:51] LABS: GLUCOSE,RANDOM 146 mg/dL (75-110); MAGNESIUM 2.2 mg/dL (1.6-2.3); PHOSPHOROUS 3.3 mg/dL (2.5-4.5)
[2017-01-24 11:54] LABS: INR 3.6
[2017-01-24 12:37] LABS: NEUTROPHIL 90 % (50-75); TOTAL CELLS COUNTED 100
[2017-01-24] MEDS: Digoxin 125 mcg (0.125 mg) Tab PO SCH (18:23)
--- NOTE | 2017-01-24 20:19 | CP.PCM.PN ---
Subjective - Date & Time of Evaluation Date of Evaluation: 01/24/17 Time of Evaluation: 13:00 - Subjective Subjective: Patient seen and examined. Feels better with oxygen Dyspnea on minimal exertion Awaiting for transfer to subacute Continue nebulizer treatment and IV steroids Objective - Vital Signs/Intake and Output Vital Signs (last 24 hours): Temp Pulse Resp BP Pulse Ox 97.1 F L 72 20 96/58 L 100 01/24/17 15:44 01/24/17 15:44 01/24/17 15:44 01/24/17 15:44 01/24/17 15:44 Intake and Output: 01/24/17 01/25/17 18:59 06:59 Intake Total 700 Output Total 2600 Balance -1900 - Medications Medications: Current Medications Albuterol/Ipratropium (Duoneb 3 Mg/0.5 Mg (3 Ml) Ud) 3 ml INH RQ6 [facility] Last Admin: 01/24/17 19:10 Dose: 3 ml Budesonide (Pulmicort Respules) 0.5 mg INH RQ12 [facility] Last Admin: 01/24/17 19:10 Dose: 0.5 mg Digoxin (Lanoxin) 0.125 mg PO DAILY@1800 [facility] Last Admin: 01/24/17 18:23 Dose: 0.125 mg Furosemide (Lasix) 40 mg IVP DAILY [facility] Last Admin: 01/24/17 10:23 Dose: 40 mg Guaifenesin (Mucinex La) 600 mg PO BID [facility] Last Admin: 01/24/17 18:24 Dose: 600 mg Methylprednisolone (Solu-Medrol) 40 mg IVP Q8 [facility] Last Admin: 01/24/17 13:12 Dose: 40 mg Rosuvastatin Calcium (Crestor) 10 mg PO HS [facility] Last Admin: 01/18/17 22:03 Dose: 10 mg Spironolactone (Aldactone) 25 mg PO DAILY [facility] Last Admin: 01/24/17 10:23 Dose: 25 mg Tiotropium [place] (Spiriva) 18 mcg INH RQ24 [facility] Last Admin: 01/24/17 07:52 Dose: 18 mcg - Labs Labs: 01/24/17 11:33 01/24/17 11:33 PT 42.4 SECONDS (9.7-12.2) H* D 01/24/17 11:33 INR 3.6 01/24/17 11:33 APTT 30 SECONDS (21-34) 01/24/17 11:33 Assessment and Plan (1) COPD (chronic obstructive pulmonary disease) Status: Acute (2) Acute exacerbation of CHF (congestive heart failure) Status: Acute (3) Chronic atrial fibrillation Status: Chronic
--- NOTE | 2017-01-24 22:19 | CP.PCM.PN ---
<Harvinder Real - Last Filed: 01/24/17 23:49> Subjective - Date & Time of Evaluation Date of Evaluation: 01/24/17 Time of Evaluation: 10:40 - Subjective Subjective: PGY-1 Medicine Note - Dr. Schmidt (covering for Dr Otoole) Patient seen and examined at bedside. No overnight events as per nursing. Patient was having difficulty breathing on room air and after reconnecting his nasal canula, he started breathing fine. States that he has dizziness upon standing/sitting, which has been ongoing since admission. Denies headache, fever , chills, chest pain, palpitations, nausea, vomiting, diarrhea. Objective - Vital Signs/Intake and Output Vital Signs (last 24 hours): Temp Pulse Resp BP Pulse Ox 97.1 F L 72 20 96/58 L 100 01/24/17 15:44 01/24/17 15:44 01/24/17 15:44 01/24/17 15:44 01/24/17 15:44 Intake and Output: 01/24/17 01/25/17 18:59 06:59 Intake Total 700 Output Total 2600 Balance -1900 - Medications Medications: Current Medications Albuterol/Ipratropium (Duoneb 3 Mg/0.5 Mg (3 Ml) Ud) 3 ml INH RQ6 [facility] Last Admin: 01/24/17 19:10 Dose: 3 ml Budesonide (Pulmicort Respules) 0.5 mg INH RQ12 [facility] Last Admin: 01/24/17 19:10 Dose: 0.5 mg Digoxin (Lanoxin) 0.125 mg PO DAILY@1800 [facility] Last Admin: 01/24/17 18:23 Dose: 0.125 mg Furosemide (Lasix) 40 mg IVP DAILY [facility] Last Admin: 01/24/17 10:23 Dose: 40 mg Guaifenesin (Mucinex La) 600 mg PO BID [facility] Last Admin: 01/24/17 18:24 Dose: 600 mg Methylprednisolone (Solu-Medrol) 40 mg IVP Q8 [facility] Last Admin: 01/24/17 21:58 Dose: 40 mg Rosuvastatin Calcium (Crestor) 10 mg PO HS [facility] Last Admin: 01/18/17 22:03 Dose: 10 mg Spironolactone (Aldactone) 25 mg PO DAILY [facility] Last Admin: 01/24/17 10:23 Dose: 25 mg Tiotropium [place] (Spiriva) 18 mcg INH RQ24 [facility] Last Admin: 01/24/17 07:52 Dose: 18 mcg - Labs Labs: 01/24/17 11:33 01/24/17 11:33 PT 42.4 SECONDS (9.7-12.2) H* D 01/24/17 11:33 INR 3.6 01/24/17 11:33 APTT 30 SECONDS (21-34) 01/24/17 11:33 - Constitutional Appears: Non-toxic, No Acute Distress - Head Exam Head Exam: ATRAUMATIC, NORMOCEPHALIC - Eye Exam Eye Exam: EOMI - ENT Exam ENT Exam: Mucous Membranes Moist - Neck Exam Neck Exam: Full ROM - Respiratory Exam Respiratory Exam: Rhonchi (right side), NORMAL BREATHING PATTERN - Cardiovascular Exam Cardiovascular Exam: REGULAR RHYTHM, +S1, +S2 Additional comments: -Tender to palpation at R sternal border, 2nd rib. Protrusion noted (chronic) -Waxing/waning tenderness to palpation over site of pacemaker (chronic) - GI/Abdominal Exam GI & Abdominal Exam: Soft, Normal Bowel Sounds - Neurological Exam Neurological Exam: Alert, Awake - Psychiatric Exam Psychiatric exam: Normal Affect, Normal Mood - Skin Skin Exam: Dry, Warm Assessment and Plan - Assessment and Plan (Free Text) Plan: Assessment: 71 year old male with past medical history including GA, CAD with history of CABG and valve replacement 6-7 years ago. Reports worstenting SOB and dizziness with associated swelling of bilateral LE for past 2-3 days. Admits this is the first time he has experienced these symptoms. SOB is worse when he lays flat. Plan: -Discharge planning to [facility] once INR in 2.5-3.5 range and SOB is better controlled. Patient has [email or web address] insurance, case is working on it. -01/22: Dr. Schmidt recommends pulmonary rehab, case is looking into facilities. COPD (chronic obstructive pulmonary disease) -01/19-01/23: Continue BIPAP, patient more compliant (sometimes refuses despite being SOB). -01/16: RAPID called due to SOB. BP 80/50's. Bolused 500cc NS. Ordered BIPAP and ABG, however patient refused. Placed back on NC 3L. -01/14-01/15: Patient complaining of SOB with exertion and orthopnea. Maintain Head of bed elevated 30 degrees. -01/13: PT session: 98% O2 at 2L at rest, 96% room air at rest sitting, 82% room air during ambulation, 88% at 2 liter ambulation. -01/12: Walked 20 steps today down bruno, and patient became dizzy, SOB, and almost collapsed. - Solumedrol 40mg IVP Q8H [facility] (01/12) - Consulted Pulmonology, Dr. Cobb, f/u recs - Aware of HR in 140's and SOB after eating and low levels of exertion. -f/u ABG (not collected) -LDH 654H -HIV - negative -planning for home O2 -persistent shortness of breath - Patient with long history of smoking most likely has underlying COPD. Nebulizer treatment. Inhaled steroids. Spiriva. PFT as out pt Systolic dysfunction with acute on chronic heart failure -Chest CT 01/22 - Cardiomegaly. Cardiac valve prosthesis. Left-sided AICD. Dense coronary artery calcifications. -Small consolidation (favored to reflect atelectasis rather than pneumonia) at the left lung base. -Bibasilar atelectasis. Small airways disease. Mild ground-glass and fine nodular opacities within the right upper lobe, possibly infectious or inflammatory. -7 mm left upper lobe pulmonary nodule. Guidelines by the Fleischner society (radiology 2005; 237:390 5-400) suggests that in patients with low risk for lung cancer, with nodules less than or equal to 8 mm in diameter should have follow-up in approximately 6-12 months. In patients with high-risk, including smokers, follow-up is recommended 3-6 months. Patient with a known malignancy for risk for metastases should receive 3 month follow-up. -Hepatic capsular calcification. -Numerous low-density lesions throughout the liver, possibly cysts. Decompressed gallbladder limits evaluation. Bilateral hypodense renal lesions. Right adrenal gland hypertrophy. 12 mm left adrenal gland nodule measures approximately 9 Hounsfield units, likely adenoma. -Consulted Cardiology, Dr. Arguelles - f/u recs -01/22: Lasix 40mg IVP daily, Spironolactone 25mg daily. CXR - no interval pathology change. -01/19: HOLD LASIX FOR 1 TO 2 DAYS AND CONT MUCINEX. PT PRERENAL AND APPEARS DRY. ON BOTH LASIX AND SPIRONOLACTONE. -SOB APPEARS TO BE SECONDARY TO PULM ETIOLOGY. IMPROVES WITH NEBS. PT WITH RHONCHI B/L. MAY BENEFIT FROM PULM TOILET. -will attempt to obtain company of AICD for interrogation. -likely deconditioned. will benefit from rehab - EF 10-15%, mechanical MV- no regurg, tricuspid regurg. see full report -01/16: RAPID called due to SOB. BP 80/50's. Bolused 500cc NS. Ordered BIPAP and ABG, however patient refused. Placed back on NC 3L. ProBNP 4070H (less than # on admission) and KACY negative. -01/16: Decrease to Lasix 40mg PO daily (was BID). Admit to telemetry, BNP 4560 on admission Digoxin 0.125mg Lisinopril 10mg daily Aldactone 25mg PO Daily patient with AICD, will check echo to determine EF CXR 01/03: mild cardiomegaly, mild pulmonary venous congestion. s/p sternotomy, aortic valve replacement, AICD H/O mitral valve replacement with mechanical valve Cardiac valve replacement 6-7yrs ago Consulted Cardiology, Dr. Arguelles - f/u recs -echocardiogram reviewed. valve leaflets are opening and functional. There is no signficant gradient across the valve. -recommend INR 2.5 to 3.5. STOP Lovenox 01/11 STOP Heparin Drip - cardiac protocol, with bolus (because patient is refusing blood draws) 01/07: INR 1.3 01/08: INR refused, Coumadin 10mg 01/09: INR 1.5, Coumadin 10mg 01/10: INR 2.0, Coumadin 10mg 01/11: INR 2.4, Coumadin 7.5mg; patient received one more dose of Lovenox 80mg SC today, now discontinued as bridge complete. 01/12: INR 2.5, Coumadin 7.5mg 01/13: INR 3.1, Coumadin 5mg 01/14: INR 3.7, Coumadin 5mg (stopped by pharmacy) 01/15: INR 2.8, Coumadin 5mg 01/16: INR 2.6, Coumadin 4mg 01/17: INR 2.7, Coumadin 4 mg 01/18: INR 2.3 Coumadin 4mg 01/19: INR 2.1, Coumadin 6mg 01/20: INR 2.6, Coumadin 5mg 01/21: INR 2.6, Coumadin 5mg 01/22: INR 2.5, Coumadin 6mg 01/23: INR 2.9, Coumadin 6mg, 01/24: INR 3.6, Coumadin 6mg, f/u INR Chronic atrial fibrillation Consulted Cardiology, Dr. Arguelles - f/u recs -Rate controlled -echocardiogram reviewed. valve leaflets are opening and functional. There is no signficant gradient across the valve. -recommend INR 2.5 to 3.5. -See PT/INR trends above Coumadin as above STOP Lovenox 01/11 Cough, acute -01/24 does not complain of cough -01/19-01/22: Persists. Non-productive. Continue Mucinex. -01/15: patient developed productive cough with yellow sputum today. -Mucinex 600mg PO BID. CAD (coronary artery disease) Consulted Cardiology, Dr. Arguelles - f/u recs -Aware of HR in 140's and SOB after eating and low levels of exertion. -unknown graft status. no evidence of ischemia at present -No current angina History of GA (myocardial infarction) HOLD Crestor 10mg PO HS (last dose 01/18- due to elevated LFTs) ROMIs negative x3 EKG paced Denies chest pain Transaminitis, acute 01/24: 51/164 AST / ALT down trending 01/22-01/23: AST / ALT down trending - continue to hold Crestor 01/21: AST 57 / ALT 188, decreasing. HOLD Crestor 10mg PO HS (last dose 01/18- due to elevated LFTs) 01/20: AST 75 / ALT 205 01/19: AST 70 / ALT 201 - increasing -> hold crestor for 2 nights 01/19, 01/20 01/16: AST 90 / ALT 164 - increasing -> hold Crestor tonight. - AST 77 / ALT 98 -> previously normal. - Continue to monitor Electrolyte Imbalance Hyperkalemia - resolved Hypokalemia, Tachycardia 01/20-01/23: HR WNL 01/13: Patient becomes SOB very easily, desaturating to 82% while ambulating. Anytime he eats or gets up, HR climbs into 140's Continue Digoxin 0.125mg EKG in ER: sinus tachycardia at 100, paced, incomplete RBBB Discontinued cardizem drip of 5mg/h started in the ER Lower extremity edema LE Duplex - negative. see full report. Prophylactic measure Coumadin as above. protonix 40mg daily SCD contraindicated due to LE edema D/C when bed available <Delroy Schmidt - Last Filed: 01/25/17 10:38> Objective - Vital Signs/Intake and Output Vital Signs (last 24 hours): Temp Pulse Resp BP Pulse Ox 97.7 F 71 18 112/65 99 01/25/17 09:04 01/25/17 09:04 01/25/17 09:04 01/25/17 09:04 01/25/17 09:04 Intake and Output: 01/25/17 01/25/17 06:59 18:59 Output Total 1300 Balance -1300 - Medications Medications: Current Medications Albuterol/Ipratropium (Duoneb 3 Mg/0.5 Mg (3 Ml) Ud) 3 ml INH RQ6 [facility] Last Admin: 01/25/17 07:30 Dose: 3 ml Budesonide (Pulmicort Respules) 0.5 mg INH RQ12 [facility] Last Admin: 01/25/17 07:30 Dose: 0.5 mg Digoxin (Lanoxin) 0.125 mg PO DAILY@1800 [facility] Last Admin: 01/24/17 18:23 Dose: 0.125 mg Furosemide (Lasix) 40 mg IVP DAILY [facility] Last Admin: 01/24/17 10:23 Dose: 40 mg Guaifenesin (Mucinex La) 600 mg PO BID [facility] Last Admin: 01/24/17 18:24 Dose: 600 mg Methylprednisolone (Solu-Medrol) 40 mg IVP Q8 [facility] Last Admin: 01/25/17 05:56 Dose: 40 mg Rosuvastatin Calcium (Crestor) 10 mg PO HS [facility] Last Admin: 01/18/17 22:03 Dose: 10 mg Spironolactone (Aldactone) 25 mg PO DAILY [facility] Last Admin: 01/24/17 10:23 Dose: 25 mg Tiotropium [place] (Spiriva) 18 mcg INH RQ24 [facility] Last Admin: 01/25/17 07:45 Dose: 18 mcg - Labs Labs: 01/24/17 11:33 01/24/17 11:33 PT 42.4 SECONDS (9.7-12.2) H* D 01/24/17 11:33 INR 3.6 01/24/17 11:33 APTT 30 SECONDS (21-34) 01/24/17 11:33 Attending/Attestation - Attestation I have personally seen and examined this patient.: Yes I have fully participated in the care of the patient.: Yes I have reviewed all pertinent clinical information, including history, physical exam and plan: Yes Notes (Text): Patient admitted with COPD exacerbation, CHF w/ systolic dysfunction; still short of breath but relatively unchanged; On coumadin 6 mg daily for mechanical mitral valve, INR 2.9-> 3.6 (goal 2.5-3.5) ; holding dose today, reassess tomorrow; likely will need alternating doses; On lasix IV 40 mg daily and spironolactone 25 mg PO daily, continue; relatively euvolemic on exam; On solumedrol 40 mg q8h; unclear benefit at this point although pulm saying to continue; Dispo: Patient awaiting insurance authorization for DIA placement.
[2017-01-25] MEDS: Albuterol-Ipratrop 3 mg / 0.5 (3 ml) UD INH SCH ×4 (01:38→19:11)
[2017-01-25] MEDS: MethylPREDNISolone 40 mg Vial IVP SCH ×3 (05:56→22:58)
[2017-01-25] MEDS: Budesonide 0.5 mg/2 ml Inhal Susp UD INH SCH ×2 (07:30→19:11)
[2017-01-25] MEDS: Tiotropium 18 mcg Cap For Inhalation INH SCH (07:45)
[2017-01-25] MEDS: guaiFENesin 600 mg ER Tab PO SCH ×2 (10:47→18:24)
--- NOTE | 2017-01-25 14:20 | CP.PCM.PN ---
Subjective - Date & Time of Evaluation Date of Evaluation: 01/25/17 Time of Evaluation: 10:00 - Subjective Subjective: patient has less dyspnea. Objective - Vital Signs/Intake and Output Vital Signs (last 24 hours): Temp Pulse Resp BP Pulse Ox 97.7 F 71 18 112/65 99 01/25/17 09:04 01/25/17 09:04 01/25/17 09:04 01/25/17 10:46 01/25/17 09:04 Intake and Output: 01/25/17 01/25/17 06:59 18:59 Output Total 1300 Balance -1300 - Medications Medications: Current Medications Albuterol/Ipratropium (Duoneb 3 Mg/0.5 Mg (3 Ml) Ud) 3 ml INH RQ6 [facility] Last Admin: 01/25/17 13:05 Dose: 3 ml Budesonide (Pulmicort Respules) 0.5 mg INH RQ12 [facility] Last Admin: 01/25/17 07:30 Dose: 0.5 mg Digoxin (Lanoxin) 0.125 mg PO DAILY@1800 [facility] Last Admin: 01/24/17 18:23 Dose: 0.125 mg Furosemide (Lasix) 40 mg IVP DAILY [facility] Last Admin: 01/25/17 10:46 Dose: 40 mg Guaifenesin (Mucinex La) 600 mg PO BID [facility] Last Admin: 01/25/17 10:47 Dose: 600 mg Methylprednisolone (Solu-Medrol) 40 mg IVP Q8 [facility] Last Admin: 01/25/17 05:56 Dose: 40 mg Rosuvastatin Calcium (Crestor) 10 mg PO HS [facility] Last Admin: 01/18/17 22:03 Dose: 10 mg Spironolactone (Aldactone) 25 mg PO DAILY [facility] Last Admin: 01/25/17 10:46 Dose: 25 mg Tiotropium [place] (Spiriva) 18 mcg INH RQ24 [facility] Last Admin: 01/25/17 07:45 Dose: 18 mcg - Labs Labs: 01/24/17 11:33 01/24/17 11:33 PT 42.4 SECONDS (9.7-12.2) H* D 01/24/17 11:33 INR 3.6 01/24/17 11:33 APTT 30 SECONDS (21-34) 01/24/17 11:33 - Constitutional Appears: Non-toxic - Head Exam Head Exam: NORMAL INSPECTION - Eye Exam Eye Exam: Normal appearance - ENT Exam ENT Exam: Mucous Membranes Moist - Neck Exam Neck Exam: absent: Thyromegaly - Respiratory Exam Respiratory Exam: Decreased Breath Sounds, Rhonchi, Wheezes - Cardiovascular Exam Cardiovascular Exam: Irregular Rhythm - GI/Abdominal Exam GI & Abdominal Exam: Normal Bowel Sounds - Rectal Exam Rectal Exam: Deferred - Extremities Exam Extremities Exam: absent: Pedal Edema - Back Exam Back Exam: NORMAL INSPECTION - Neurological Exam Neurological Exam: Alert - Psychiatric Exam Psychiatric exam: Normal Affect - Skin Skin Exam: Normal Color Assessment and Plan (1) Systolic dysfunction with acute on chronic heart failure Assessment & Plan: will continue lasix Status: Acute (2) Chronic atrial fibrillation Assessment & Plan: anticoagulation Status: Chronic (3) CAD (coronary artery disease) Assessment & Plan: no angina Status: Chronic (4) H/O mitral valve replacement with mechanical valve Assessment & Plan: goal INR 2.5-3.5 Status: Chronic
[2017-01-25] MEDS: Digoxin 125 mcg (0.125 mg) Tab PO SCH (18:21)
--- NOTE | 2017-01-25 22:10 | CP.PCM.PN ---
Subjective - Date & Time of Evaluation Date of Evaluation: 01/25/17 Time of Evaluation: 07:10 - Subjective Subjective: PGY-1 Medicine Note - Dr. Dr Otoole Patient seen and examined at bedside. No overnight events as per nursing. Patient was having difficulty breathing on room air and after reconnecting his nasal canula, he started breathing fine. States that he has dizziness upon standing/sitting, which has been ongoing since admission. He refused his labs this morning. He denies headache, fever, chills, chest pain, palpitations, nausea, vomiting, diarrhea. Objective - Vital Signs/Intake and Output Vital Signs (last 24 hours): Temp Pulse Resp BP Pulse Ox 97.3 F L 76 20 104/65 99 01/25/17 16:00 01/25/17 16:00 01/25/17 16:00 01/25/17 16:00 01/25/17 16:00 Intake and Output: 01/25/17 01/26/17 18:59 06:59 Intake Total 600 Output Total 400 300 Balance 200 -300 - Medications Medications: Current Medications Albuterol/Ipratropium (Duoneb 3 Mg/0.5 Mg (3 Ml) Ud) 3 ml INH RQ6 [facility] Last Admin: 01/25/17 19:11 Dose: 3 ml Budesonide (Pulmicort Respules) 0.5 mg INH RQ12 [facility] Last Admin: 01/25/17 19:11 Dose: 0.5 mg Digoxin (Lanoxin) 0.125 mg PO DAILY@1800 [facility] Last Admin: 01/25/17 18:21 Dose: 0.125 mg Furosemide (Lasix) 40 mg IVP DAILY [facility] Last Admin: 01/25/17 10:46 Dose: 40 mg Guaifenesin (Mucinex La) 600 mg PO BID [facility] Last Admin: 01/25/17 18:24 Dose: 600 mg Methylprednisolone (Solu-Medrol) 40 mg IVP Q8 [facility] Last Admin: 01/25/17 14:29 Dose: 40 mg Rosuvastatin Calcium (Crestor) 10 mg PO HS [facility] Last Admin: 01/18/17 22:03 Dose: 10 mg Spironolactone (Aldactone) 25 mg PO DAILY [facility] Last Admin: 01/25/17 10:46 Dose: 25 mg Tiotropium [place] (Spiriva) 18 mcg INH RQ24 [facility] Last Admin: 01/25/17 07:45 Dose: 18 mcg - Labs Labs: 01/24/17 11:33 01/24/17 11:33 PT 42.4 SECONDS (9.7-12.2) H* D 01/24/17 11:33 INR 3.6 01/24/17 11:33 APTT 30 SECONDS (21-34) 01/24/17 11:33 - Constitutional Appears: No Acute Distress - Head Exam Head Exam: ATRAUMATIC, NORMOCEPHALIC - Eye Exam Eye Exam: EOMI Pupil Exam: NORMAL ACCOMODATION - ENT Exam ENT Exam: Mucous Membranes Moist, Normal Exam - Neck Exam Neck Exam: Full ROM, Normal Inspection - Respiratory Exam Respiratory Exam: Rhonchi (right side ) - Cardiovascular Exam Cardiovascular Exam: +S1, +S2, Murmur - GI/Abdominal Exam GI & Abdominal Exam: Soft, Tenderness Additional comments: -Tender to palpation at R sternal border, 2nd rib. Protrusion noted (chronic) -Waxing/waning tenderness to palpation over site of pacemaker (chronic) - Extremities Exam Extremities Exam: Joint Swelling (improved from previous) - Neurological Exam Neurological Exam: Alert, Awake - Psychiatric Exam Psychiatric exam: Normal Affect, Normal Mood - Skin Skin Exam: Intact, Warm Assessment and Plan - Assessment and Plan (Free Text) Assessment: 71 year old male with past medical history including MT, CAD with history of CABG and valve replacement 6-7 years ago. Reports worstenting SOB and dizziness with associated swelling of bilateral LE for past 2-3 days. Admits this is the first time he has experienced these symptoms. SOB is worse when he lays flat. Plan: -Discharge planning to [facility] once INR in 2.5-3.5 range and SOB is better controlled. Patient has [employer] insurance, case is working on it. -01/22: Dr. Schmidt recommends pulmonary rehab, case is looking into facilities. COPD (chronic obstructive pulmonary disease) -01/19-01/23: Continue BIPAP, patient more compliant (sometimes refuses despite being SOB). -01/16: RAPID called due to SOB. BP 80/50's. Bolused 500cc NS. Ordered BIPAP and ABG, however patient refused. Placed back on NC 3L. -01/14-01/15: Patient complaining of SOB with exertion and orthopnea. Maintain Head of bed elevated 30 degrees. -01/13: PT session: 98% O2 at 2L at rest, 96% room air at rest sitting, 82% room air during ambulation, 88% at 2 liter ambulation. -01/12: Walked 20 steps today down bruno, and patient became dizzy, SOB, and almost collapsed. - Solumedrol 40mg IVP Q8H [facility] (01/12) - Consulted Pulmonology, Dr. Cobb, f/u recs - Aware of HR in 140's and SOB after eating and low levels of exertion. -f/u ABG (not collected) -LDH 654H -HIV - negative -planning for home O2 -persistent shortness of breath - Patient with long history of smoking most likely has underlying COPD. Nebulizer treatment. Inhaled steroids. Spiriva. PFT as out pt Systolic dysfunction with acute on chronic heart failure -Chest CT 01/22 - Cardiomegaly. Cardiac valve prosthesis. Left-sided AICD. Dense coronary artery calcifications. -Small consolidation (favored to reflect atelectasis rather than pneumonia) at the left lung base. -Bibasilar atelectasis. Small airways disease. Mild ground-glass and fine nodular opacities within the right upper lobe, possibly infectious or inflammatory. -7 mm left upper lobe pulmonary nodule. Guidelines by the Fleischner society (radiology 2005; 237:390 5-400) suggests that in patients with low risk for lung cancer, with nodules less than or equal to 8 mm in diameter should have follow-up in approximately 6-12 months. In patients with high-risk, including smokers, follow-up is recommended 3-6 months. Patient with a known malignancy for risk for metastases should receive 3 month follow-up. -Hepatic capsular calcification. -Numerous low-density lesions throughout the liver, possibly cysts. Decompressed gallbladder limits evaluation. Bilateral hypodense renal lesions. Right adrenal gland hypertrophy. 12 mm left adrenal gland nodule measures approximately 9 Hounsfield units, likely adenoma. -Consulted Cardiology, Dr. Arguelles - f/u recs -01/22: Lasix 40mg IVP daily, Spironolactone 25mg daily. CXR - no interval pathology change. -01/19: HOLD LASIX FOR 1 TO 2 DAYS AND CONT MUCINEX. PT PRERENAL AND APPEARS DRY. ON BOTH LASIX AND SPIRONOLACTONE. -SOB APPEARS TO BE SECONDARY TO PULM ETIOLOGY. IMPROVES WITH NEBS. PT WITH RHONCHI B/L. MAY BENEFIT FROM PULM TOILET. -will attempt to obtain company of AICD for interrogation. -likely deconditioned. will benefit from rehab - EF 10-15%, mechanical MV- no regurg, tricuspid regurg. see full report -01/16: RAPID called due to SOB. BP 80/50's. Bolused 500cc NS. Ordered BIPAP and ABG, however patient refused. Placed back on NC 3L. ProBNP 4070H (less than # on admission) and KACY negative. -01/16: Decrease to Lasix 40mg PO daily (was BID). Admit to telemetry, BNP 4560 on admission Digoxin 0.125mg Lisinopril 10mg daily Aldactone 25mg PO Daily patient with AICD, will check echo to determine EF CXR 01/03: mild cardiomegaly, mild pulmonary venous congestion. s/p sternotomy, aortic valve replacement, AICD H/O mitral valve replacement with mechanical valve Cardiac valve replacement 6-7yrs ago Consulted Cardiology, Dr. Arguelles - f/u recs -echocardiogram reviewed. valve leaflets are opening and functional. There is no signficant gradient across the valve. -recommend INR 2.5 to 3.5. STOP Lovenox 5 STOP Heparin Drip - cardiac protocol, with bolus (because patient is refusing blood draws) 01/07: INR 1.3 01/08: INR refused, Coumadin 10mg 01/09: INR 1.5, Coumadin 10mg 01/10: INR 2.0, Coumadin 10mg 01/11: INR 2.4, Coumadin 7.5mg; patient received one more dose of Lovenox 80mg SC today, now discontinued as bridge complete. 01/12: INR 2.5, Coumadin 7.5mg 01/13: INR 3.1, Coumadin 5mg 01/14: INR 3.7, Coumadin 5mg (stopped by pharmacy) 01/15: INR 2.8, Coumadin 5mg 01/16: INR 2.6, Coumadin 4mg 01/17: INR 2.7, Coumadin 4 mg 01/18: INR 2.3 Coumadin 4mg 01/19: INR 2.1, Coumadin 6mg 01/20: INR 2.6, Coumadin 5mg 01/21: INR 2.6, Coumadin 5mg 01/22: INR 2.5, Coumadin 6mg 01/23: INR 2.9, Coumadin 6mg, 01/24: INR 3.6, Coumadin 6mg, f/u INR 01/25: HELD PT, Pt. denied blood work today Chronic atrial fibrillation Consulted Cardiology, Dr. Arguelles - f/u recs -Rate controlled -echocardiogram reviewed. valve leaflets are opening and functional. There is no signficant gradient across the valve. -recommend INR 2.5 to 3.5. -See PT/INR trends above Coumadin as above STOP Lovenox 01/11 Cough, acute -01/24 does not complain of cough -01/19-01/22: Persists. Non-productive. Continue Mucinex. -01/15: patient developed productive cough with yellow sputum today. -Mucinex 600mg PO BID. CAD (coronary artery disease) Consulted Cardiology, Dr. Arguelles - f/u recs -Aware of HR in 140's and SOB after eating and low levels of exertion. -unknown graft status. no evidence of ischemia at present -No current angina History of [place] (myocardial infarction) HOLD Crestor 10mg PO HS (last dose 01/18- due to elevated LFTs) ROMIs negative x3 EKG paced Denies chest pain Transaminitis, acute 01/24: 51/164 AST / ALT down trending 01/22-01/23: AST / ALT down trending - continue to hold Crestor 01/21: AST 57 / ALT 188, decreasing. HOLD Crestor 10mg PO HS (last dose 01/18- due to elevated LFTs) 01/20: AST 75 / ALT 205 01/19: AST 70 / ALT 201 - increasing -> hold crestor for 2 nights 01/19, 01/20 01/16: AST 90 / ALT 164 - increasing -> hold Crestor tonight. - AST 77 / ALT 98 -> previously normal. - Continue to monitor Electrolyte Imbalance Hyperkalemia - resolved Hypokalemia, Tachycardia 01/20-01/23: HR WNL 01/13: Patient becomes SOB very easily, desaturating to 82% while ambulating. Anytime he eats or gets up, HR climbs into 140's Continue Digoxin 0.125mg EKG in ER: sinus tachycardia at 100, paced, incomplete RBBB Discontinued cardizem drip of 5mg/h started in the ER Lower extremity edema LE Duplex - negative. see full report. Prophylactic measure Coumadin as above. protonix 40mg daily SCD contraindicated due to LE edema D/C when bed available
[2017-01-26] MEDS: Albuterol-Ipratrop 3 mg / 0.5 (3 ml) UD INH SCH ×4 (01:34→19:12)
[2017-01-26] MEDS: MethylPREDNISolone 40 mg Vial IVP SCH ×3 (05:44→21:53)
[2017-01-26] MEDS: Tiotropium 18 mcg Cap For Inhalation INH SCH (07:46)
[2017-01-26] MEDS: Budesonide 0.5 mg/2 ml Inhal Susp UD INH SCH ×2 (07:46→19:12)
--- NOTE | 2017-01-26 08:04 | CP.PCM.PN ---
<Lenny Adam - Last Filed: 01/26/17 21:36> Subjective - Date & Time of Evaluation Date of Evaluation: 01/26/17 Time of Evaluation: 07:00 - Subjective Subjective: PGY-1 Medicine Note - Dr. Dr Otoole Patient seen and examined at bedside. No overnight events as per nursing. Pt was lying in bed, eating and watching tv, not using nasal cannula. Appeared comfortable. However once I approached him, he began to c/o SOB. He reports similar complaints of SOB with exertion, orthopnea, and some cough. Pt's symptoms are relieved by his nasal cannula as well as Bipap machine (moderately compliant). Denies headache, fever, chills, chest pain, palpitations, nausea, vomiting, diarrhea. Objective - Vital Signs/Intake and Output Vital Signs (last 24 hours): Temp Pulse Resp BP Pulse Ox 97.7 F 82 20 106/72 98 01/26/17 04:23 01/26/17 04:23 01/26/17 04:23 01/26/17 04:23 01/26/17 04:23 Intake and Output: 01/26/17 01/26/17 06:59 18:59 Intake Total 400 Output Total 1250 Balance -850 - Medications Medications: Current Medications Albuterol/Ipratropium (Duoneb 3 Mg/0.5 Mg (3 Ml) Ud) 3 ml INH RQ6 [facility] Last Admin: 01/26/17 07:46 Dose: 3 ml Budesonide (Pulmicort Respules) 0.5 mg INH RQ12 [facility] Last Admin: 01/26/17 07:46 Dose: 0.5 mg Digoxin (Lanoxin) 0.125 mg PO DAILY@1800 [facility] Last Admin: 01/25/17 18:21 Dose: 0.125 mg Furosemide (Lasix) 40 mg IVP DAILY [facility] Last Admin: 01/25/17 10:46 Dose: 40 mg Guaifenesin (Mucinex La) 600 mg PO BID [facility] Last Admin: 01/25/17 18:24 Dose: 600 mg Methylprednisolone (Solu-Medrol) 40 mg IVP Q8 [facility] Last Admin: 01/26/17 05:44 Dose: 40 mg Rosuvastatin Calcium (Crestor) 10 mg PO HS [facility] Last Admin: 01/18/17 22:03 Dose: 10 mg Spironolactone (Aldactone) 25 mg PO DAILY [facility] Last Admin: 01/25/17 10:46 Dose: 25 mg Tiotropium [place] (Spiriva) 18 mcg INH RQ24 [facility] Last Admin: 01/26/17 07:46 Dose: 18 mcg - Labs Labs: 01/24/17 11:33 01/24/17 11:33 PT 42.4 SECONDS (9.7-12.2) H* D 01/24/17 11:33 INR 3.6 01/24/17 11:33 APTT 30 SECONDS (21-34) 01/24/17 11:33 - Additional Findings Additional findings: - Constitutional Appears: No Acute Distress - Head Exam Head Exam: ATRAUMATIC, NORMOCEPHALIC - Eye Exam Eye Exam: EOMI Pupil Exam: NORMAL ACCOMODATION - ENT Exam ENT Exam: Mucous Membranes Moist, Normal Exam - Neck Exam Neck Exam: Full ROM, Normal Inspection - Respiratory Exam Respiratory Exam: Rhonchi (right side ) - Cardiovascular Exam Cardiovascular Exam: +S1, +S2, Murmur - GI/Abdominal Exam GI & Abdominal Exam: Soft, Tenderness Additional comments: -Tender to palpation at R sternal border, 2nd rib. Protrusion noted (chronic) -Waxing/waning tenderness to palpation over site of pacemaker (chronic) - Extremities Exam Extremities Exam: Joint Swelling (improved from previous) - Neurological Exam Neurological Exam: Alert, Awake - Psychiatric Exam Psychiatric exam: Normal Affect, Normal Mood - Skin Skin Exam: Intact, Warm Assessment and Plan - Assessment and Plan (Free Text) Assessment: 71 year old male with past medical history including DC, CAD with history of CABG and valve replacement 6-7 years ago. Reports worstenting SOB and dizziness with associated swelling of bilateral LE for past 2-3 days. Admits this is the first time he has experienced these symptoms. SOB is worse when he lays flat. Plan: -Discharge planning to [facility] once INR in 2.5-3.5 range and SOB is better controlled. Patient has [employer] insurance, case is working on it. -01/22: Dr. Schmidt recommends pulmonary rehab, case is looking into facilities. COPD (chronic obstructive pulmonary disease) -01/19-01/26: Continue BIPAP, patient more compliant (sometimes refuses despite being SOB). Consider changing Solumedrol 40mg IVP Q8H [facility] (3/6) -> Prednisone -01/16: RAPID called due to SOB. BP 80/50's. Bolused 500cc NS. Ordered BIPAP and ABG, however patient refused. Placed back on NC 3L. -01/14-01/15: Patient complaining of SOB with exertion and orthopnea. Maintain Head of bed elevated 30 degrees. -01/13: PT session: 98% O2 at 2L at rest, 96% room air at rest sitting, 82% room air during ambulation, 88% at 2 liter ambulation. -01/12: Walked 20 steps today down [address]uno, and patient became dizzy, SOB, and almost collapsed. - Consulted Pulmonology, Dr. Cobb, f/u recs - Aware of HR in 140's and SOB after eating and low levels of exertion. -f/u ABG (not collected) -LDH 654H -HIV - negative -planning for home O2 -persistent shortness of breath - Patient with long history of smoking most likely has underlying COPD. Nebulizer treatment. Inhaled steroids. Spiriva. PFT as out pt Systolic dysfunction with acute on chronic heart failure -Chest CT 01/22 - Cardiomegaly. Cardiac valve prosthesis. Left-sided AICD. Dense coronary artery calcifications. -Small consolidation (favored to reflect atelectasis rather than pneumonia) at the left lung base. -Bibasilar atelectasis. Small airways disease. Mild ground-glass and fine nodular opacities within the right upper lobe, possibly infectious or inflammatory. -7 mm left upper lobe pulmonary nodule. Guidelines by the Fleischner society (radiology 2005; 237:390 5-400) suggests that in patients with low risk for lung cancer, with nodules less than or equal to 8 mm in diameter should have follow-up in approximately 6-12 months. In patients with high-risk, including smokers, follow-up is recommended 3-6 months. Patient with a known malignancy for risk for metastases should receive 3 month follow-up. -Hepatic capsular calcification. -Numerous low-density lesions throughout the liver, possibly cysts. Decompressed gallbladder limits evaluation. Bilateral hypodense renal lesions. Right adrenal gland hypertrophy. 12 mm left adrenal gland nodule measures approximately 9 Hounsfield units, likely adenoma. -Consulted Cardiology, Dr. Arguelles - f/u recs -01/22: Lasix 40mg IVP daily, Spironolactone 25mg daily. CXR - no interval pathology change. -01/19: HOLD LASIX FOR 1 TO 2 DAYS AND CONT MUCINEX. PT PRERENAL AND APPEARS DRY. ON BOTH LASIX AND SPIRONOLACTONE. -SOB APPEARS TO BE SECONDARY TO PULM ETIOLOGY. IMPROVES WITH NEBS. PT WITH RHONCHI B/L. MAY BENEFIT FROM PULM TOILET. -will attempt to obtain company of AICD for interrogation. -likely deconditioned. will benefit from rehab - EF 10-15%, mechanical MV- no regurg, tricuspid regurg. see full report -01/16: RAPID called due to SOB. BP 80/50's. Bolused 500cc NS. Ordered BIPAP and ABG, however patient refused. Placed back on NC 3L. ProBNP 4070H (less than # on admission) and KACY negative. -01/16: Decrease to Lasix 40mg PO daily (was BID). Admit to telemetry, BNP 4560 on admission Digoxin 0.125mg Lisinopril 10mg daily Aldactone 25mg PO Daily patient with AICD, will check echo to determine EF CXR 01/03: mild cardiomegaly, mild pulmonary venous congestion. s/p sternotomy, aortic valve replacement, AICD H/O mitral valve replacement with mechanical valve Cardiac valve replacement 6-7yrs ago Consulted Cardiology, Dr. Arguelles - f/u recs -echocardiogram reviewed. valve leaflets are opening and functional. There is no signficant gradient across the valve. -recommend INR 2.5 to 3.5. STOP Lovenox 3/5 STOP Heparin Drip - cardiac protocol, with bolus (because patient is refusing blood draws) 01/07: INR 1.3 01/08: INR refused, Coumadin 10mg 01/09: INR 1.5, Coumadin 10mg 01/10: INR 2.0, Coumadin 10mg 01/11: INR 2.4, Coumadin 7.5mg; patient received one more dose of Lovenox 80mg SC today, now discontinued as bridge complete. 01/12: INR 2.5, Coumadin 7.5mg 01/13: INR 3.1, Coumadin 5mg 01/14: INR 3.7, Coumadin 5mg (stopped by pharmacy) 01/15: INR 2.8, Coumadin 5mg 01/16: INR 2.6, Coumadin 4mg 01/17: INR 2.7, Coumadin 4 mg 01/18: INR 2.3 Coumadin 4mg 01/19: INR 2.1, Coumadin 6mg 01/20: INR 2.6, Coumadin 5mg 01/21: INR 2.6, Coumadin 5mg 01/22: INR 2.5, Coumadin 6mg 01/23: INR 2.9, Coumadin 6mg, 01/24: INR 3.6, Coumadin 6mg, f/u INR 01/25: HELD Coumadin, Pt. denied blood work today 01/26: HELD Coumadin, Pt. denied blood work today Chronic atrial fibrillation Consulted Cardiology, Dr. Arguelles - f/u recs -Rate controlled -echocardiogram reviewed. valve leaflets are opening and functional. There is no signficant gradient across the valve. -recommend INR 2.5 to 3.5. -See PT/INR trends above Coumadin as above STOP Lovenox 01/11 Cough, acute -01/24 does not complain of cough -01/19-01/22: Persists. Non-productive. Continue Mucinex. -01/15: patient developed productive cough with yellow sputum today. -Mucinex 600mg PO BID. CAD (coronary artery disease) Consulted Cardiology, Dr. Arguelles - f/u recs -Aware of HR in 140's and SOB after eating and low levels of exertion. -unknown graft status. no evidence of ischemia at present -No current angina History of DC (myocardial infarction) HOLD Crestor 10mg PO HS (last dose 01/18- due to elevated LFTs) ROMIs negative x3 EKG paced Denies chest pain Transaminitis, acute 01/25-01/26: Patient refused blood work 01/24: 51/164 AST / ALT down trending 01/22-01/23: AST / ALT down trending - continue to hold Crestor 01/21: AST 57 / ALT 188, decreasing. HOLD Crestor 10mg PO HS (last dose 01/18- due to elevated LFTs) 01/20: AST 75 / ALT 205 01/19: AST 70 / ALT 201 - increasing -> hold crestor for 2 nights 01/19, 01/20 01/16: AST 90 / ALT 164 - increasing -> hold Crestor tonight. - AST 77 / ALT 98 -> previously normal. - Continue to monitor Electrolyte Imbalance Hyperkalemia - resolved Hypokalemia, Tachycardia 01/20-01/23: HR WNL 01/13: Patient becomes SOB very easily, desaturating to 82% while ambulating. Anytime he eats or gets up, HR climbs into 140's Continue Digoxin 0.125mg EKG in ER: sinus tachycardia at 100, paced, incomplete RBBB Discontinued cardizem drip of 5mg/h started in the ER Lower extremity edema LE Duplex - negative. see full report. Prophylactic measure Coumadin as above. protonix 40mg daily SCD contraindicated due to LE edema D/C when bed available <Johnnie Otoole Jr. - Last Filed: 01/31/17 12:00> Objective - Vital Signs/Intake and Output Vital Signs (last 24 hours): Temp Pulse Resp BP Pulse Ox 98 F 80 18 97/59 L 99 01/31/17 07:30 01/31/17 07:30 01/31/17 07:30 01/31/17 07:30 01/31/17 07:30 Intake and Output: 01/31/17 01/31/17 06:59 18:59 Intake Total 500 Balance 500 - Medications Medications: Current Medications Albuterol/Ipratropium (Duoneb 3 Mg/0.5 Mg (3 Ml) Ud) 3 ml INH RQ6 [facility] Last Admin: 01/31/17 09:14 Dose: 3 ml Benzocaine/Menthol (Cepacol Sore Throat) 1 sarah [place] Q6H PRN PRN Reason: Sore Throat Last Admin: 01/31/17 00:53 Dose: 1 sarah Budesonide (Pulmicort Respules) 0.5 mg INH RQ12 [facility] Last Admin: 01/31/17 09:14 Dose: 0.5 mg Digoxin (Lanoxin) 0.125 mg PO DAILY@1800 [facility] Last Admin: 01/30/17 17:12 Dose: 0.125 mg Furosemide (Lasix) 40 mg PO DAILY [facility] Last Admin: 01/30/17 09:03 Dose: 40 mg Guaifenesin (Mucinex La) 600 mg PO BID [facility] Last Admin: 01/30/17 17:19 Dose: 600 mg Prednisone (Prednisone Tab) 40 mg PO DAILY [facility] Last Admin: 01/30/17 09:03 Dose: 40 mg Rosuvastatin Calcium (Crestor) 10 mg PO HS [facility] Last Admin: 01/18/17 22:03 Dose: 10 mg Spironolactone (Aldactone) 25 mg PO DAILY [facility] Last Admin: 01/30/17 09:03 Dose: 25 mg Tiotropium [place] (Spiriva) 18 mcg INH RQ24 [facility] Last Admin: 01/31/17 09:12 Dose: 18 mcg - Labs Labs: 01/29/17 17:03 01/29/17 17:03 PT 37.8 SECONDS (9.7-12.2) H* D 01/30/17 11:15 INR 3.3 01/30/17 11:15 APTT 30 SECONDS (21-34) 01/30/17 11:15 Attending/Attestation - Attestation I have personally seen and examined this patient.: Yes I have fully participated in the care of the patient.: Yes I have reviewed all pertinent clinical information, including history, physical exam and plan: Yes
[2017-01-26] MEDS: guaiFENesin 600 mg ER Tab PO SCH ×2 (09:59→16:59)
--- NOTE | 2017-01-26 11:45 | CP.PCM.PN ---
Subjective - Date & Time of Evaluation Date of Evaluation: 01/26/17 Time of Evaluation: 10:00 - Subjective Subjective: Patient seen and examined at bedside. Pt was lying in bed, not using nasal cannula at this time. Pt states similar complaints of SOB with exertion, orthopnea, and some cough. Pt 's symptoms are relieved by his nasal cannula as well as Bipap machine. Pt is moderately compliant with Bipap. Pt denies CP and subjective fever today. Objective - Vital Signs/Intake and Output Vital Signs (last 24 hours): Temp Pulse Resp BP Pulse Ox 97.7 F 61 20 100/60 99 01/26/17 07:30 01/26/17 10:02 01/26/17 07:30 01/26/17 11:18 01/26/17 07:30 Intake and Output: 01/26/17 01/26/17 06:59 18:59 Intake Total 400 Output Total 1250 Balance -850 - Medications Medications: Current Medications Albuterol/Ipratropium (Duoneb 3 Mg/0.5 Mg (3 Ml) Ud) 3 ml INH RQ6 [facility] Last Admin: 01/26/17 07:46 Dose: 3 ml Budesonide (Pulmicort Respules) 0.5 mg INH RQ12 [facility] Last Admin: 01/26/17 07:46 Dose: 0.5 mg Digoxin (Lanoxin) 0.125 mg PO DAILY@1800 [facility] Last Admin: 01/25/17 18:21 Dose: 0.125 mg Furosemide (Lasix) 40 mg PO DAILY [facility] Last Admin: 01/26/17 11:18 Dose: 40 mg Guaifenesin (Mucinex La) 600 mg PO BID [facility] Last Admin: 01/26/17 09:59 Dose: 600 mg Methylprednisolone (Solu-Medrol) 40 mg IVP Q8 [facility] Last Admin: 01/26/17 05:44 Dose: 40 mg Rosuvastatin Calcium (Crestor) 10 mg PO HS [facility] Last Admin: 01/18/17 22:03 Dose: 10 mg Spironolactone (Aldactone) 25 mg PO DAILY [facility] Last Admin: 01/26/17 10:01 Dose: Not Given Tiotropium [place] (Spiriva) 18 mcg INH RQ24 [facility] Last Admin: 01/26/17 07:46 Dose: 18 mcg - Labs Labs: 01/24/17 11:33 01/24/17 11:33 PT 42.4 SECONDS (9.7-12.2) H* D 01/24/17 11:33 INR 3.6 01/24/17 11:33 APTT 30 SECONDS (21-34) 01/24/17 11:33 - Constitutional Appears: Non-toxic, No Acute Distress - Head Exam Head Exam: ATRAUMATIC, NORMOCEPHALIC - Eye Exam Eye Exam: Normal appearance Pupil Exam: NORMAL ACCOMODATION - ENT Exam ENT Exam: Mucous Membranes Moist - Respiratory Exam Respiratory Exam: Decreased Breath Sounds, NORMAL BREATHING PATTERN - Cardiovascular Exam Cardiovascular Exam: REGULAR RHYTHM - Neurological Exam Neurological Exam: Alert, Awake, Oriented x3 - Psychiatric Exam Psychiatric exam: Normal Affect, Normal Mood - Skin Skin Exam: Dry, Intact, Normal Color, Warm Assessment and Plan (1) COPD (chronic obstructive pulmonary disease) Assessment & Plan: CT scan on 01/22/17 showed small consolidation at left lung base favoring to reflect atelectasis rather than pneumonia. Bibasilar atelectasis, small airways disease, mild ground-glass and fine nodular opacities within the right upper lobe. See report for full details. Consider switching from Solu-Medrol to Prednisone Continue nebulizer treatment Continue oxygen and BiPAP as needed Pending placement. Pt will need home oxygen upon discharge. Continue to monitor for increased SOB, productive cough, fever, and CP. Status: Acute (2) Acute exacerbation of CHF (congestive heart failure) Status: Acute (3) Chronic atrial fibrillation Status: Chronic
[2017-01-26] MEDS: Digoxin 125 mcg (0.125 mg) Tab PO SCH (16:59)
[2017-01-27] MEDS: Albuterol-Ipratrop 3 mg / 0.5 (3 ml) UD INH SCH ×4 (01:06→20:40)
[2017-01-27] MEDS: MethylPREDNISolone 40 mg Vial IVP SCH ×3 (06:07→21:33)
[2017-01-27] MEDS: Budesonide 0.5 mg/2 ml Inhal Susp UD INH SCH ×2 (07:24→20:40)
[2017-01-27] MEDS: Tiotropium 18 mcg Cap For Inhalation INH SCH (07:24)
--- NOTE | 2017-01-27 07:52 | CP.PCM.PN ---
<Lenny Adam - Last Filed: 01/27/17 20:58> Subjective - Date & Time of Evaluation Date of Evaluation: 01/27/17 Time of Evaluation: 07:15 - Subjective Subjective: PGY1 Medicine Note - Dr. Otoole Patient seen and examined at bedside. No overnight events as per nursing. Pt was lying in bed, eating and watching tv, not using nasal cannula. Appeared comfortable. However once I approached him, he began to c/o SOB. He reports similar complaints of SOB with exertion, orthopnea, and some cough. Pt's symptoms are relieved by his nasal cannula as well as Bipap machine (moderately compliant). Denies headache, fever, chills, chest pain, palpitations, nausea, vomiting, diarrhea. Objective - Vital Signs/Intake and Output Vital Signs (last 24 hours): Temp Pulse Resp BP Pulse Ox 97.9 F 78 20 97/60 L 98 01/26/17 23:30 01/26/17 23:33 01/26/17 23:30 01/26/17 23:30 01/26/17 23:30 Intake and Output: 01/27/17 01/27/17 06:59 18:59 Intake Total 700 Output Total 3575 Balance -2875 - Medications Medications: Current Medications Albuterol/Ipratropium (Duoneb 3 Mg/0.5 Mg (3 Ml) Ud) 3 ml INH RQ6 [facility] Last Admin: 01/27/17 07:24 Dose: 3 ml Budesonide (Pulmicort Respules) 0.5 mg INH RQ12 [facility] Last Admin: 01/27/17 07:24 Dose: 0.5 mg Digoxin (Lanoxin) 0.125 mg PO DAILY@1800 [facility] Last Admin: 01/26/17 16:59 Dose: 0.125 mg Furosemide (Lasix) 40 mg PO DAILY [facility] Last Admin: 01/26/17 11:18 Dose: 40 mg Guaifenesin (Mucinex La) 600 mg PO BID [facility] Last Admin: 01/26/17 16:59 Dose: 600 mg Methylprednisolone (Solu-Medrol) 40 mg IVP Q8 [facility] Last Admin: 01/27/17 06:07 Dose: 40 mg Rosuvastatin Calcium (Crestor) 10 mg PO HS [facility] Last Admin: 01/18/17 22:03 Dose: 10 mg Spironolactone (Aldactone) 25 mg PO DAILY [facility] Last Admin: 01/26/17 10:01 Dose: Not Given Tiotropium [place] (Spiriva) 18 mcg INH RQ24 [facility] Last Admin: 01/27/17 07:24 Dose: 18 mcg - Labs Labs: 01/24/17 11:33 01/24/17 11:33 PT 42.4 SECONDS (9.7-12.2) H* D 01/24/17 11:33 INR 3.6 01/24/17 11:33 APTT 30 SECONDS (21-34) 01/24/17 11:33 - Additional Findings Additional findings: - Constitutional Appears: No Acute Distress - Head Exam Head Exam: ATRAUMATIC, NORMOCEPHALIC - Eye Exam Eye Exam: EOMI Pupil Exam: NORMAL ACCOMODATION - ENT Exam ENT Exam: Mucous Membranes Moist, Normal Exam - Neck Exam Neck Exam: Full ROM, Normal Inspection - Respiratory Exam Respiratory Exam: Rhonchi (right side ) - Cardiovascular Exam Cardiovascular Exam: +S1, +S2, Murmur - GI/Abdominal Exam GI & Abdominal Exam: Soft, Tenderness Additional comments: -Tender to palpation at R sternal border, 2nd rib. Protrusion noted (chronic) -Waxing/waning tenderness to palpation over site of pacemaker (chronic) - Extremities Exam Extremities Exam: Joint Swelling (improved from previous) - Neurological Exam Neurological Exam: Alert, Awake - Psychiatric Exam Psychiatric exam: Normal Affect, Normal Mood - Skin Skin Exam: Intact, Warm Assessment and Plan - Assessment and Plan (Free Text) Assessment: 71 year old male with past medical history including IA, CAD with history of CABG and valve replacement 6-7 years ago. Reports worstenting SOB and dizziness with associated swelling of bilateral LE for past 2-3 days. Admits this is the first time he has experienced these symptoms. SOB is worse when he lays flat. Plan: -Discharge planning to [facility] once INR in 2.5-3.5 range and SOB is better controlled. Patient has [employer] insurance, case is working on it. -01/22: Dr. Schmidt recommends pulmonary rehab, case is looking into facilities. COPD (chronic obstructive pulmonary disease) -01/19-01/26: Continue BIPAP, patient more compliant (sometimes refuses despite being SOB). Consider changing Solumedrol 40mg IVP Q8H [facility] (01/12) -> Prednisone -01/16: RAPID called due to SOB. BP 80/50's. Bolused 500cc NS. Ordered BIPAP and ABG, however patient refused. Placed back on NC 3L. -01/14-01/15: Patient complaining of SOB with exertion and orthopnea. Maintain Head of bed elevated 30 degrees. -01/13: PT session: 98% O2 at 2L at rest, 96% room air at rest sitting, 82% room air during ambulation, 88% at 2 liter ambulation. -01/12: Walked 20 steps today down [address]uno, and patient became dizzy, SOB, and almost collapsed. - Consulted Pulmonology, Dr. Cobb, f/u recs -planning for home O2 - Aware of HR in 140's and SOB after eating and low levels of exertion. -f/u ABG (not collected) -LDH 654H -HIV - negative -persistent shortness of breath - Patient with long history of smoking most likely has underlying COPD. Nebulizer treatment. Inhaled steroids. Spiriva. PFT as out pt Systolic dysfunction with acute on chronic heart failure - EF 10-15%, mechanical MV- no regurg, tricuspid regurg. see full report -Chest CT 01/22 - Cardiomegaly. Cardiac valve prosthesis. Left-sided AICD. Dense coronary artery calcifications. -Small consolidation (favored to reflect atelectasis rather than pneumonia) at the left lung base. -Bibasilar atelectasis. Small airways disease. Mild ground-glass and fine nodular opacities within the right upper lobe, possibly infectious or inflammatory. -7 mm left upper lobe pulmonary nodule. Guidelines by the Fleischner society (radiology 2005; 237:390 5-400) suggests that in patients with low risk for lung cancer, with nodules less than or equal to 8 mm in diameter should have follow-up in approximately 6-12 months. In patients with high-risk, including smokers, follow-up is recommended 3-6 months. Patient with a known malignancy for risk for metastases should receive 3 month follow-up. -Hepatic capsular calcification. -Numerous low-density lesions throughout the liver, possibly cysts. Decompressed gallbladder limits evaluation. Bilateral hypodense renal lesions. Right adrenal gland hypertrophy. 12 mm left adrenal gland nodule measures approximately 9 Hounsfield units, likely adenoma. -Consulted Cardiology, Dr. Arguelles - f/u recs -01/22: Lasix 40mg IVP daily, Spironolactone 25mg daily. CXR - no interval pathology change. -01/19: HOLD LASIX FOR 1 TO 2 DAYS AND CONT MUCINEX. PT PRERENAL AND APPEARS DRY. ON BOTH LASIX AND SPIRONOLACTONE. -SOB APPEARS TO BE SECONDARY TO PULM ETIOLOGY. IMPROVES WITH NEBS. PT WITH RHONCHI B/L. MAY BENEFIT FROM PULM TOILET. -will attempt to obtain [facility] for interrogation. -likely deconditioned. will benefit from rehab -01/16: RAPID called due to SOB. BP 80/50's. Bolused 500cc NS. Ordered BIPAP and ABG, however patient refused. Placed back on NC 3L. ProBNP 4070H (less than # on admission) and KACY negative. -01/16: Decrease to Lasix 40mg PO daily (was BID). Admit to telemetry, BNP 4560 on admission Digoxin 0.125mg Lisinopril 10mg daily Aldactone 25mg PO Daily patient with AICD, will check echo to determine EF CXR 01/03: mild cardiomegaly, mild pulmonary venous congestion. s/p sternotomy, aortic valve replacement, AICD H/O mitral valve replacement with mechanical valve Cardiac valve replacement 6-7yrs ago Consulted Cardiology, Dr. Arguelles - f/u recs -echocardiogram reviewed. valve leaflets are opening and functional. There is no signficant gradient across the valve. -recommend INR 2.5 to 3.5. STOP Lovenox 3/5 STOP Heparin Drip - cardiac protocol, with bolus (because patient is refusing blood draws) 01/07: INR 1.3 01/08: INR refused, Coumadin 10mg 01/09: INR 1.5, Coumadin 10mg 01/10: INR 2.0, Coumadin 10mg 01/11: INR 2.4, Coumadin 7.5mg; patient received one more dose of Lovenox 80mg SC today, now discontinued as bridge complete. 01/12: INR 2.5, Coumadin 7.5mg 01/13: INR 3.1, Coumadin 5mg 01/14: INR 3.7, Coumadin 5mg (stopped by pharmacy) 01/15: INR 2.8, Coumadin 5mg 01/16: INR 2.6, Coumadin 4mg 01/17: INR 2.7, Coumadin 4 mg 01/18: INR 2.3 Coumadin 4mg 01/19: INR 2.1, Coumadin 6mg 01/20: INR 2.6, Coumadin 5mg 01/21: INR 2.6, Coumadin 5mg 01/22: INR 2.5, Coumadin 6mg 01/23: INR 2.9, Coumadin 6mg, 01/24: INR 3.6, Coumadin 6mg, f/u INR 01/25: HELD Coumadin, Pt. denied blood work today 01/26: HELD Coumadin, Pt. denied blood work today 01/27: INR 1.3, Coumadin 7mg, f/u INR Chronic atrial fibrillation Consulted Cardiology, Dr. Arguelles - f/u recs -Rate controlled -echocardiogram reviewed. valve leaflets are opening and functional. There is no signficant gradient across the valve. -recommend INR 2.5 to 3.5. -See PT/INR trends above Coumadin as above STOP Lovenox 01/11 Cough, acute -01/24 does not complain of cough -01/19-01/22: Persists. Non-productive. Continue Mucinex. -01/15: patient developed productive cough with yellow sputum today. -Mucinex 600mg PO BID. CAD (coronary artery disease) Consulted Cardiology, Dr. Arguelles - f/u recs -Aware of HR in 140's and SOB after eating and low levels of exertion. -unknown graft status. no evidence of ischemia at present -No current angina History of IA (myocardial infarction) HOLD Crestor 10mg PO HS (last dose 01/18- due to elevated LFTs) ROMIs negative x3 EKG paced Denies chest pain Transaminitis, acute 01/27: AST 37 / ALT 124 - continue to hold crestor. 01/25-01/26: Patient refused blood work 01/24: 51/164 AST / ALT down trending 01/22-01/23: AST / ALT down trending - continue to hold Crestor 01/21: AST 57 / ALT 188, decreasing. HOLD Crestor 10mg PO HS (last dose 01/18- due to elevated LFTs) 01/20: AST 75 / ALT 205 01/19: AST 70 / ALT 201 - increasing -> hold crestor for 2 nights 01/19, 01/20 01/16: AST 90 / ALT 164 - increasing -> hold Crestor tonight. - AST 77 / ALT 98 -> previously normal. - Continue to monitor Electrolyte Imbalance Hyperkalemia - resolved Hypokalemia, 01/27: Hyponatremia, Na 127 - f/u Tachycardia HR WNL, continue to monitor 01/20-01/23: HR WNL 01/13: Patient becomes SOB very easily, desaturating to 82% while ambulating. Anytime he eats or gets up, HR climbs into 140's Continue Digoxin 0.125mg EKG in ER: sinus tachycardia at 100, paced, incomplete RBBB Discontinued cardizem drip of 5mg/h started in the ER Lower extremity edema LE Duplex - negative. see full report. Prophylactic measure Coumadin as above. protonix 40mg daily SCD contraindicated due to LE edema D/C when bed available <Johnnie Otoole Jr. - Last Filed: 01/31/17 12:01> Objective - Vital Signs/Intake and Output Vital Signs (last 24 hours): Temp Pulse Resp BP Pulse Ox 98 F 80 18 97/59 L 99 01/31/17 07:30 01/31/17 07:30 01/31/17 07:30 01/31/17 07:30 01/31/17 07:30 Intake and Output: 01/31/17 01/31/17 06:59 18:59 Intake Total 500 Balance 500 - Medications Medications: Current Medications Albuterol/Ipratropium (Duoneb 3 Mg/0.5 Mg (3 Ml) Ud) 3 ml INH RQ6 [facility] Last Admin: 01/31/17 09:14 Dose: 3 ml Benzocaine/Menthol (Cepacol Sore Throat) 1 sarah [place] Q6H PRN PRN Reason: Sore Throat Last Admin: 01/31/17 00:53 Dose: 1 sarah Budesonide (Pulmicort Respules) 0.5 mg INH RQ12 [facility] Last Admin: 01/31/17 09:14 Dose: 0.5 mg Digoxin (Lanoxin) 0.125 mg PO DAILY@1800 [facility] Last Admin: 01/30/17 17:12 Dose: 0.125 mg Furosemide (Lasix) 40 mg PO DAILY [facility] Last Admin: 01/30/17 09:03 Dose: 40 mg Guaifenesin (Mucinex La) 600 mg PO BID [facility] Last Admin: 01/30/17 17:19 Dose: 600 mg Prednisone (Prednisone Tab) 40 mg PO DAILY [facility] Last Admin: 01/30/17 09:03 Dose: 40 mg Rosuvastatin Calcium (Crestor) 10 mg PO HS [facility] Last Admin: 01/18/17 22:03 Dose: 10 mg Spironolactone (Aldactone) 25 mg PO DAILY [facility] Last Admin: 01/30/17 09:03 Dose: 25 mg Tiotropium [place] (Spiriva) 18 mcg INH RQ24 [facility] Last Admin: 01/31/17 09:12 Dose: 18 mcg - Labs Labs: 01/29/17 17:03 01/29/17 17:03 PT 37.8 SECONDS (9.7-12.2) H* D 01/30/17 11:15 INR 3.3 01/30/17 11:15 APTT 30 SECONDS (21-34) 01/30/17 11:15 Attending/Attestation - Attestation I have personally seen and examined this patient.: Yes I have fully participated in the care of the patient.: Yes I have reviewed all pertinent clinical information, including history, physical exam and plan: Yes
[2017-01-27] MEDS: guaiFENesin 600 mg ER Tab PO SCH ×2 (10:30→19:23)
--- NOTE | 2017-01-27 11:40 | CP.PCM.PN ---
Subjective - Date & Time of Evaluation Date of Evaluation: 01/27/17 Time of Evaluation: 09:05 - Subjective Subjective: Patient seen and examined at bedside. Pt was lying in bed comfortable, and was using nasal cannula at the time of examination. Patient stated that this treatment with nasal canula was enough to keep him comfortable, and he has not felt the need to use BiPAP thus far today. Pt states similar complaints of SOB with exertion, orthopnea, and some non productive dry cough that wax and wane in severity. Pt continues to deny congestion, CP and subjective fever today. Objective - Vital Signs/Intake and Output Vital Signs (last 24 hours): Temp Pulse Resp BP Pulse Ox 97.7 F 85 22 110/70 98 01/27/17 07:08 01/27/17 08:00 01/27/17 07:08 01/27/17 10:30 01/27/17 07:08 Intake and Output: 01/27/17 01/27/17 06:59 18:59 Intake Total 700 Output Total 3575 Balance -2875 - Medications Medications: Current Medications Albuterol/Ipratropium (Duoneb 3 Mg/0.5 Mg (3 Ml) Ud) 3 ml INH RQ6 [facility] Last Admin: 01/27/17 07:24 Dose: 3 ml Budesonide (Pulmicort Respules) 0.5 mg INH RQ12 [facility] Last Admin: 01/27/17 07:24 Dose: 0.5 mg Digoxin (Lanoxin) 0.125 mg PO DAILY@1800 [facility] Last Admin: 01/26/17 16:59 Dose: 0.125 mg Furosemide (Lasix) 40 mg PO DAILY [facility] Last Admin: 01/27/17 10:30 Dose: 40 mg Guaifenesin (Mucinex La) 600 mg PO BID [facility] Last Admin: 01/27/17 10:30 Dose: 600 mg Methylprednisolone (Solu-Medrol) 40 mg IVP Q8 [facility] Last Admin: 01/27/17 06:07 Dose: 40 mg Rosuvastatin Calcium (Crestor) 10 mg PO HS [facility] Last Admin: 01/18/17 22:03 Dose: 10 mg Spironolactone (Aldactone) 25 mg PO DAILY [facility] Last Admin: 01/27/17 10:30 Dose: 25 mg Tiotropium [place] (Spiriva) 18 mcg INH RQ24 [facility] Last Admin: 01/27/17 07:24 Dose: 18 mcg - Labs Labs: 01/24/17 11:33 01/24/17 11:33 PT 42.4 SECONDS (9.7-12.2) H* D 01/24/17 11:33 INR 3.6 01/24/17 11:33 APTT 30 SECONDS (21-34) 01/24/17 11:33 - Constitutional Appears: Non-toxic, No Acute Distress - Head Exam Head Exam: NORMAL INSPECTION - Eye Exam Eye Exam: EOMI, Normal appearance - ENT Exam ENT Exam: Mucous Membranes Moist - Neck Exam Neck Exam: Normal Inspection - Respiratory Exam Respiratory Exam: Rhonchi (minimal), NORMAL BREATHING PATTERN - Cardiovascular Exam Cardiovascular Exam: REGULAR RHYTHM, +S1, +S2 - Extremities Exam Extremities Exam: absent: Pedal Edema - Neurological Exam Neurological Exam: Alert, Awake, Oriented x3 - Psychiatric Exam Psychiatric exam: Normal Affect, Normal Mood - Skin Skin Exam: Dry, Intact, Normal Color, Warm Assessment and Plan (1) COPD (chronic obstructive pulmonary disease) Assessment & Plan: Switch from Solu-Medrol to Prednisone Continue nebulizer treatment as needed Continue oxygen and BiPAP as needed Pending placement. Pt will need home oxygen upon discharge. Continue to monitor for increased SOB, productive cough, fever, and CP. Status: Acute (2) Acute exacerbation of CHF (congestive heart failure) Status: Acute (3) Chronic atrial fibrillation Status: Chronic
[2017-01-27 13:56] LABS: CHLORIDE 92 mmol/L (98-107)
[2017-01-27 13:57] LABS: SODIUM 127 mmol/L (132-148)
[2017-01-27 13:58] LABS: BASO % 0.2 % (0.0-2.0); EOS # 0.1 K/uL (0.0-0.7); EOS % 0.5 % (0.0-4.0); LYMPH # 0.5 K/uL (1.0-4.3); LYMPH % 2.5 % (20.0-40.0); MEAN CELL VOLUME 81.2 fL (80.0-94.0); MEAN CORPUSCULAR HEMOGLOBIN 25.8 pg (27.0-31.0); MEAN CORPUSCULAR HGB CONC 31.8 g/dL (33.0-37.0); MEAN PLATELET VOLUME 7.9 fL (7.2-11.7); MONO # 1.3 K/uL (0.0-0.8); PLATELET COUNT 223 K/uL (130-400); RED CELL DISTRIBUTION WIDTH 18.7 % (11.5-14.5); WHITE BLOOD COUNT 18.3 K/uL (4.8-10.8)
[2017-01-27 13:59] LABS: ALB/GLOB RATIO 1.1 (1.0-2.1); ALKALINE PHOSPHATASE 69 U/L (38-126); AST/SGOT 37 U/L (17-59); BILIRUBIN,TOTAL 0.8 mg/dL (0.2-1.3); CARBON DIOXIDE 27 mmol/L (22-30); GFR AFRICAN-AMERICAN > 60; TOTAL PROTEIN 6.4 g/dL (6.3-8.3)
[2017-01-27 14:00] LABS: ALT/SGPT 124 U/L (21-72); BLOOD UREA NITROGEN 44 mg/dL (9-20); CALCIUM 8.8 mg/dl (8.6-10.4); GLUCOSE,RANDOM 120 mg/dL (75-110); MAGNESIUM 2.2 mg/dL (1.6-2.3)
[2017-01-27 14:03] LABS: INR 1.3
[2017-01-27 14:31] LABS: NEUTROPHIL 89 % (50-75); TOTAL CELLS COUNTED 100
[2017-01-27] MEDS: Digoxin 125 mcg (0.125 mg) Tab PO SCH (17:26)
[2017-01-28] MEDS: Albuterol-Ipratrop 3 mg / 0.5 (3 ml) UD INH SCH ×4 (01:51→19:54)
[2017-01-28] MEDS: MethylPREDNISolone 40 mg Vial IVP SCH ×3 (05:30→21:21)
[2017-01-28] MEDS: Tiotropium 18 mcg Cap For Inhalation INH SCH (07:27)
[2017-01-28] MEDS: Budesonide 0.5 mg/2 ml Inhal Susp UD INH SCH ×2 (07:27→19:54)
--- NOTE | 2017-01-28 07:50 | CP.PCM.PN ---
<Lenny Adam - Last Filed: 01/28/17 19:57> Subjective - Date & Time of Evaluation Date of Evaluation: 01/28/17 Time of Evaluation: 07:05 - Subjective Subjective: PGY1 Medicine Note - Dr. Otoole Patient seen and examined at bedside. No overnight events as per nursing. Pt was lying in bed, eating and watching tv, wearing oxygen mask today, says it eases his SOB. SOB with exertion, orthopnea, and some cough persist. Nasal cannula and Bipap help. Denies headache, fever, chills, chest pain, palpitations , nausea, vomiting, diarrhea. Objective - Vital Signs/Intake and Output Vital Signs (last 24 hours): Temp Pulse Resp BP Pulse Ox 97.9 F 84 20 96/64 L 97 01/28/17 07:39 01/28/17 07:39 01/28/17 07:39 01/28/17 07:39 01/28/17 07:39 Intake and Output: 01/28/17 01/28/17 06:59 18:59 Output Total 600 Balance -600 - Medications Medications: Current Medications Albuterol/Ipratropium (Duoneb 3 Mg/0.5 Mg (3 Ml) Ud) 3 ml INH RQ6 [facility] Last Admin: 01/28/17 07:27 Dose: 3 ml Budesonide (Pulmicort Respules) 0.5 mg INH RQ12 [facility] Last Admin: 01/28/17 07:27 Dose: 0.5 mg Digoxin (Lanoxin) 0.125 mg PO DAILY@1800 [facility] Last Admin: 01/27/17 17:26 Dose: 0.125 mg Furosemide (Lasix) 40 mg PO DAILY [facility] Last Admin: 01/27/17 10:30 Dose: 40 mg Guaifenesin (Mucinex La) 600 mg PO BID [facility] Last Admin: 01/27/17 19:23 Dose: 600 mg Methylprednisolone (Solu-Medrol) 40 mg IVP Q8 [facility] Last Admin: 01/28/17 05:30 Dose: 40 mg Rosuvastatin Calcium (Crestor) 10 mg PO HS [facility] Last Admin: 01/18/17 22:03 Dose: 10 mg Spironolactone (Aldactone) 25 mg PO DAILY [facility] Last Admin: 01/27/17 10:30 Dose: 25 mg Tiotropium [place] (Spiriva) 18 mcg INH RQ24 [facility] Last Admin: 01/28/17 07:27 Dose: 18 mcg - Labs Labs: 01/27/17 13:36 01/27/17 13:42 PT 14.9 SECONDS (9.7-12.2) H 01/27/17 13:36 INR 1.3 01/27/17 13:36 APTT 25 SECONDS (21-34) 01/27/17 13:36 - Additional Findings Additional findings: - Constitutional Appears: No Acute Distress - Head Exam Head Exam: ATRAUMATIC, NORMOCEPHALIC - Eye Exam Eye Exam: EOMI Pupil Exam: NORMAL ACCOMODATION - ENT Exam ENT Exam: Mucous Membranes Moist, Normal Exam - Neck Exam Neck Exam: Full ROM, Normal Inspection - Respiratory Exam Respiratory Exam: Decreased Breath Sounds, Wheezes (expiratory, diffuse), Rhonchi (scattered), Respiratory Distress (with orthopnea). -desaturates to 82% while walking, 88% with NC 2L - Cardiovascular Exam Cardiovascular Exam: +S1, +S2, Murmur - GI/Abdominal Exam GI & Abdominal Exam: Soft, Tenderness Additional comments: -Tender to palpation at R sternal border, 2nd rib. Protrusion noted (chronic) -Waxing/waning tenderness to palpation over site of pacemaker (chronic) - Extremities Exam Extremities Exam: Joint Swelling (improved from previous) - Neurological Exam Neurological Exam: Alert, Awake - Psychiatric Exam Psychiatric exam: Normal Affect, Normal Mood - Skin Skin Exam: Intact, Warm Assessment and Plan - Assessment and Plan (Free Text) Assessment: 71 year old male with past medical history including SD, CAD with history of CABG and valve replacement 6-7 years ago. Reports worstenting SOB and dizziness with associated swelling of bilateral LE for past 2-3 days. Admits this is the first time he has experienced these symptoms. SOB is worse when he lays flat. Plan: -Discharge planning to [facility] once INR in 2.5-3.5 range and SOB is better controlled. Patient has [employer] insurance, case is working on it. -01/22: Dr. Schmidt recommends pulmonary rehab, case is looking into facilities - none present locally COPD (chronic obstructive pulmonary disease) -01/28: Solumedrol reduced to 40mg IVP Q12H. Prior to discharge, change Solumedrol -> Prednisone -01/19-01/28: Continue BIPAP, patient more compliant (sometimes refuses despite being SOB). -01/16: RAPID called due to SOB. BP 80/50's. Bolused 500cc NS. Ordered BIPAP and ABG, however patient refused. Placed back on NC 3L. -01/14-01/15: Patient complaining of SOB with exertion and orthopnea. Maintain Head of bed elevated 30 degrees. -01/13: PT session: 98% O2 at 2L at rest, 96% room air at rest sitting, 82% room air during ambulation, 88% at 2 liter ambulation. -01/12: Walked 20 steps today down [address]uno, and patient became dizzy, SOB, and almost collapsed. - Consulted Pulmonology, Dr. Cobb, f/u recs -planning for home O2 - Aware of HR in 140's and SOB after eating and low levels of exertion. -f/u ABG (not collected) -LDH 654H -HIV - negative -persistent shortness of breath - Patient with long history of smoking most likely has underlying COPD. Nebulizer treatment. Inhaled steroids. Spiriva. PFT as out pt Systolic dysfunction with acute on chronic heart failure - EF 10-15%, mechanical MV- no regurg, tricuspid regurg. see full report -Chest CT 01/22 - Cardiomegaly. Cardiac valve prosthesis. Left-sided AICD. Dense coronary artery calcifications. -Small consolidation (favored to reflect atelectasis rather than pneumonia) at the left lung base. -Bibasilar atelectasis. Small airways disease. Mild ground-glass and fine nodular opacities within the right upper lobe, possibly infectious or inflammatory. -7 mm left upper lobe pulmonary nodule. Guidelines by the Fleischner society (radiology 2005; 237:390 5-400) suggests that in patients with low risk for lung cancer, with nodules less than or equal to 8 mm in diameter should have follow-up in approximately 6-12 months. In patients with high-risk, including smokers, follow-up is recommended 3-6 months. Patient with a known malignancy for risk for metastases should receive 3 month follow-up. -Hepatic capsular calcification. -Numerous low-density lesions throughout the liver, possibly cysts. Decompressed gallbladder limits evaluation. Bilateral hypodense renal lesions. Right adrenal gland hypertrophy. 12 mm left adrenal gland nodule measures approximately 9 Hounsfield units, likely adenoma. -Consulted Cardiology, Dr. Arguelles - f/u recs -01/22: Lasix 40mg IVP daily, Spironolactone 25mg daily. CXR - no interval pathology change. -01/19: HOLD LASIX FOR 1 TO 2 DAYS AND CONT MUCINEX. PT PRERENAL AND APPEARS DRY. ON BOTH LASIX AND SPIRONOLACTONE. -SOB APPEARS TO BE SECONDARY TO PULM ETIOLOGY. IMPROVES WITH NEBS. PT WITH RHONCHI B/L. MAY BENEFIT FROM PULM TOILET. -will attempt to obtain company of [facility] for interrogation. -likely deconditioned. will benefit from rehab -01/16: RAPID called due to SOB. BP 80/50's. Bolused 500cc NS. Ordered BIPAP and ABG, however patient refused. Placed back on NC 3L. ProBNP 4070H (less than # on admission) and KACY negative. -01/16: Decrease to Lasix 40mg PO daily (was BID). Admit to telemetry, BNP 4560 on admission Digoxin 0.125mg Lisinopril 10mg daily Aldactone 25mg PO Daily patient with AICD, will check echo to determine EF CXR 01/03: mild cardiomegaly, mild pulmonary venous congestion. s/p sternotomy, aortic valve replacement, AICD H/O mitral valve replacement with mechanical valve Cardiac valve replacement 6-7yrs ago Consulted Cardiology, Dr. Arguelles - f/u recs -echocardiogram reviewed. valve leaflets are opening and functional. There is no signficant gradient across the valve. -recommend INR 2.5 to 3.5. STOP Lovenox 3/5 STOP Heparin Drip - cardiac protocol, with bolus (because patient is refusing blood draws) 01/07: INR 1.3 01/08: INR refused, Coumadin 10mg 01/09: INR 1.5, Coumadin 10mg 01/10: INR 2.0, Coumadin 10mg 01/11: INR 2.4, Coumadin 7.5mg; patient received one more dose of Lovenox 80mg SC today, now discontinued as bridge complete. 01/12: INR 2.5, Coumadin 7.5mg 01/13: INR 3.1, Coumadin 5mg 01/14: INR 3.7, Coumadin 5mg (stopped by pharmacy) 01/15: INR 2.8, Coumadin 5mg 01/16: INR 2.6, Coumadin 4mg 01/17: INR 2.7, Coumadin 4 mg 01/18: INR 2.3 Coumadin 4mg 01/19: INR 2.1, Coumadin 6mg 01/20: INR 2.6, Coumadin 5mg 01/21: INR 2.6, Coumadin 5mg 01/22: INR 2.5, Coumadin 6mg 01/23: INR 2.9, Coumadin 6mg, 01/24: INR 3.6, Coumadin 6mg, f/u INR 01/25: HELD Coumadin, Pt. denied blood work today 01/26: HELD Coumadin, Pt. denied blood work today 01/27: INR 1.3, Coumadin 7mg, f/u 01/28: INR 1.5, Coumadin 7mg, f/u INR Chronic atrial fibrillation Consulted Cardiology, Dr. Arguelles - f/u recs -Rate controlled -echocardiogram reviewed. valve leaflets are opening and functional. There is no signficant gradient across the valve. -recommend INR 2.5 to 3.5. -See PT/INR trends above Coumadin as above STOP Lovenox 01/11 Cough, acute -01/28: cough intermittent -01/24 does not complain of cough -01/19-01/22: Persists. Non-productive. Continue Mucinex. -01/15: patient developed productive cough with yellow sputum today. -Mucinex 600mg PO BID. CAD (coronary artery disease) Consulted Cardiology, Dr. Arguelles - f/u recs -Aware of HR in 140's and SOB after eating and low levels of exertion. -unknown graft status. no evidence of ischemia at present -No current angina History of SD (myocardial infarction) HOLD Crestor 10mg PO HS (last dose 01/18- due to elevated LFTs) ROMIs negative x3 EKG paced Denies chest pain Transaminitis, acute 01/28: Improving. hold crestor 01/27: AST 37 / ALT 124 - continue to hold crestor. 01/25-01/26: Patient refused blood work 01/24: 51/164 AST / ALT down trending 01/22-01/23: AST / ALT down trending - continue to hold Crestor 01/21: AST 57 / ALT 188, decreasing. HOLD Crestor 10mg PO HS (last dose 01/18- due to elevated LFTs) 01/20: AST 75 / ALT 205 01/19: AST 70 / ALT 201 - increasing -> hold crestor for 2 nights 01/19, 01/20 01/16: AST 90 / ALT 164 - increasing -> hold Crestor tonight. - AST 77 / ALT 98 -> previously normal. - Continue to monitor Electrolyte Imbalance 01/21-01/28: Hyponatremia, stable Hyperkalemia - resolved Hypokalemia, Tachycardia HR WNL, continue to monitor 01/20-01/23: HR WNL 01/13: Patient becomes SOB very easily, desaturating to 82% while ambulating. Anytime he eats or gets up, HR climbs into 140's Continue Digoxin 0.125mg EKG in ER: sinus tachycardia at 100, paced, incomplete RBBB Discontinued cardizem drip of 5mg/h started in the ER Lower extremity edema LE Duplex - negative. see full report. Prophylactic measure Coumadin as above. protonix 40mg daily SCD contraindicated due to LE edema D/C when bed available <Johnnie Otoole Jr. - Last Filed: 01/31/17 12:03> Objective - Vital Signs/Intake and Output Vital Signs (last 24 hours): Temp Pulse Resp BP Pulse Ox 98 F 80 18 97/59 L 99 01/31/17 07:30 01/31/17 07:30 01/31/17 07:30 01/31/17 07:30 01/31/17 07:30 Intake and Output: 01/31/17 01/31/17 06:59 18:59 Intake Total 500 Balance 500 - Medications Medications: Current Medications Albuterol/Ipratropium (Duoneb 3 Mg/0.5 Mg (3 Ml) Ud) 3 ml INH RQ6 [facility] Last Admin: 01/31/17 09:14 Dose: 3 ml Benzocaine/Menthol (Cepacol Sore Throat) 1 sarah MT Q6H PRN PRN Reason: Sore Throat Last Admin: 01/31/17 00:53 Dose: 1 sarah Budesonide (Pulmicort Respules) 0.5 mg INH RQ12 [facility] Last Admin: 01/31/17 09:14 Dose: 0.5 mg Digoxin (Lanoxin) 0.125 mg PO DAILY@1800 [facility] Last Admin: 01/30/17 17:12 Dose: 0.125 mg Furosemide (Lasix) 40 mg PO DAILY [facility] Last Admin: 01/30/17 09:03 Dose: 40 mg Guaifenesin (Mucinex La) 600 mg PO BID [facility] Last Admin: 01/30/17 17:19 Dose: 600 mg Prednisone (Prednisone Tab) 40 mg PO DAILY [facility] Last Admin: 01/30/17 09:03 Dose: 40 mg Rosuvastatin Calcium (Crestor) 10 mg PO HS [facility] Last Admin: 01/18/17 22:03 Dose: 10 mg Spironolactone (Aldactone) 25 mg PO DAILY [facility] Last Admin: 01/30/17 09:03 Dose: 25 mg Tiotropium [place] (Spiriva) 18 mcg INH RQ24 [facility] Last Admin: 01/31/17 09:12 Dose: 18 mcg - Labs Labs: 01/29/17 17:03 01/29/17 17:03 PT 37.8 SECONDS (9.7-12.2) H* D 01/30/17 11:15 INR 3.3 01/30/17 11:15 APTT 30 SECONDS (21-34) 01/30/17 11:15 Attending/Attestation - Attestation I have personally seen and examined this patient.: Yes I have fully participated in the care of the patient.: Yes I have reviewed all pertinent clinical information, including history, physical exam and plan: Yes
[2017-01-28] MEDS: guaiFENesin 600 mg ER Tab PO SCH ×2 (09:34→17:21)
--- NOTE | 2017-01-28 11:37 | CP.PCM.PN ---
Subjective - Date & Time of Evaluation Date of Evaluation: 01/28/17 Time of Evaluation: 09:10 - Subjective Subjective: Patient seen and examined at bedside. Pt was sleeping comfortably upon initial examination. Upon awakening, he relied on using nasal cannula to aid in his SOB Patient stated that this treatment with nasal canula was enough to keep him comfortable, and he did not use BiPAP last night. Pt states similar complaints of SOB with exertion, orthopnea. Pt continues to deny congestion, CP and subjective fever today. Objective - Vital Signs/Intake and Output Vital Signs (last 24 hours): Temp Pulse Resp BP Pulse Ox 97.9 F 82 20 100/65 97 01/28/17 07:39 01/28/17 08:00 01/28/17 07:39 01/28/17 09:34 01/28/17 07:39 Intake and Output: 01/28/17 01/28/17 06:59 18:59 Output Total 600 Balance -600 - Medications Medications: Current Medications Albuterol/Ipratropium (Duoneb 3 Mg/0.5 Mg (3 Ml) Ud) 3 ml INH RQ6 [facility] Last Admin: 01/28/17 07:27 Dose: 3 ml Budesonide (Pulmicort Respules) 0.5 mg INH RQ12 [facility] Last Admin: 01/28/17 07:27 Dose: 0.5 mg Digoxin (Lanoxin) 0.125 mg PO DAILY@1800 [facility] Last Admin: 01/27/17 17:26 Dose: 0.125 mg Furosemide (Lasix) 40 mg PO DAILY [facility] Last Admin: 01/28/17 09:34 Dose: 40 mg Guaifenesin (Mucinex La) 600 mg PO BID [facility] Last Admin: 01/28/17 09:34 Dose: 600 mg Methylprednisolone (Solu-Medrol) 40 mg IVP Q8 [facility] Last Admin: 01/28/17 05:30 Dose: 40 mg Rosuvastatin Calcium (Crestor) 10 mg PO HS [facility] Last Admin: 01/18/17 22:03 Dose: 10 mg Spironolactone (Aldactone) 25 mg PO DAILY [facility] Last Admin: 01/28/17 09:35 Dose: 25 mg Tiotropium [place] (Spiriva) 18 mcg INH RQ24 [facility] Last Admin: 01/28/17 07:27 Dose: 18 mcg - Labs Labs: 01/27/17 13:36 01/27/17 13:42 PT 14.9 SECONDS (9.7-12.2) H 01/27/17 13:36 INR 1.3 01/27/17 13:36 APTT 25 SECONDS (21-34) 01/27/17 13:36 - Constitutional Appears: No Acute Distress - Head Exam Head Exam: NORMAL INSPECTION - Eye Exam Eye Exam: Normal appearance - ENT Exam ENT Exam: Mucous Membranes Moist - Neck Exam Neck Exam: Normal Inspection - Respiratory Exam Respiratory Exam: Rhonchi - Cardiovascular Exam Cardiovascular Exam: REGULAR RHYTHM, RRR, +S1, +S2 - Neurological Exam Neurological Exam: Alert, Awake, Oriented x3 - Psychiatric Exam Psychiatric exam: Anxious - Skin Skin Exam: Dry, Intact, Normal Color, Warm Assessment and Plan (1) COPD (chronic obstructive pulmonary disease) Assessment & Plan: Continue nebulizer treatment as needed Continue oxygen and BiPAP as needed Pending placement. Pt will need home oxygen upon discharge. Continue to monitor for increased SOB, productive cough, fever, and CP. Patient will be switched from Solu-Medrol to prednisone prior to discharge. Status: Acute (2) Acute exacerbation of CHF (congestive heart failure) Status: Acute (3) Chronic atrial fibrillation Status: Chronic
[2017-01-28 15:06] LABS: BASO % 0.2 % (0.0-2.0); HEMATOCRIT 41.2 % (35.0-51.0); LYMPH # 0.4 K/uL (1.0-4.3); LYMPH % 2.2 % (20.0-40.0); MEAN CELL VOLUME 80.4 fL (80.0-94.0); MEAN CORPUSCULAR HEMOGLOBIN 25.7 pg (27.0-31.0); MEAN PLATELET VOLUME 7.7 fL (7.2-11.7); MONO % 5.9 % (0.0-10.0); PLATELET COUNT 208 K/uL (130-400); RED CELL DISTRIBUTION WIDTH 18.1 % (11.5-14.5); WHITE BLOOD COUNT 16.8 K/uL (4.8-10.8)
[2017-01-28 15:14] LABS: INR 1.5
[2017-01-28 15:35] LABS: CHLORIDE 89 mmol/L (98-107)
[2017-01-28 15:36] LABS: POTASSIUM 4.4 mmol/L (3.6-5.2); SODIUM 127 mmol/L (132-148)
[2017-01-28 15:38] LABS: ALB/GLOB RATIO 1.2 (1.0-2.1); ALKALINE PHOSPHATASE 69 U/L (38-126); AST/SGOT 33 U/L (17-59); BILIRUBIN,TOTAL 0.9 mg/dL (0.2-1.3); BLOOD UREA NITROGEN 42 mg/dL (9-20); CARBON DIOXIDE 29 mmol/L (22-30); GFR AFRICAN-AMERICAN > 60; GLUCOSE,RANDOM 139 mg/dL (75-110); TOTAL PROTEIN 5.7 g/dL (6.3-8.3)
[2017-01-28 15:39] LABS: ALT/SGPT 100 U/L (21-72); CALCIUM 8.3 mg/dl (8.6-10.4); MAGNESIUM 2.1 mg/dL (1.6-2.3); PHOSPHOROUS 3.5 mg/dL (2.5-4.5)
[2017-01-28 15:47] LABS: NEUTROPHIL 91 % (50-75); TOTAL CELLS COUNTED 100
[2017-01-28 15:48] LABS: LARGE PLATELETS PRESENT
[2017-01-28] MEDS: Digoxin 125 mcg (0.125 mg) Tab PO SCH (17:21)
[2017-01-29] MEDS: Albuterol-Ipratrop 3 mg / 0.5 (3 ml) UD INH SCH ×3 (01:26→19:15)
[2017-01-29] MEDS: Tiotropium 18 mcg Cap For Inhalation INH SCH (08:00)
[2017-01-29] MEDS: Budesonide 0.5 mg/2 ml Inhal Susp UD INH SCH ×2 (08:00→19:15)
[2017-01-29] MEDS: guaiFENesin 600 mg ER Tab PO SCH ×2 (11:21→18:05)
[2017-01-29] MEDS: MethylPREDNISolone 40 mg Vial IVP SCH (11:22)
--- NOTE | 2017-01-29 15:33 | CP.PCM.PN ---
<Lenny Adam - Last Filed: 01/29/17 18:07> Subjective - Date & Time of Evaluation Date of Evaluation: 01/29/17 Time of Evaluation: 08:05 - Subjective Subjective: PGY1 Medicine Note - Dr. Otoole Patient seen and examined at bedside. No overnight events as per nursing. Pt is at his baseline overall. Lying in bed, eating and watching tv, wearing NC today. SOB with exertion, orthopnea, and some cough persist (non productive). Nasal cannula and Bipap help (although sometimes refuses BIPAP). Denies headache , fever, chills, chest pain, palpitations, nausea, vomiting, diarrhea. Objective - Vital Signs/Intake and Output Vital Signs (last 24 hours): Temp Pulse Resp BP Pulse Ox 97.6 F 56 L 18 111/68 100 01/29/17 08:24 01/29/17 08:24 01/29/17 08:24 01/29/17 11:22 01/29/17 08:24 Intake and Output: 01/29/17 01/29/17 06:59 18:59 Intake Total 840 350 Output Total 2475 Balance -1635 350 - Medications Medications: Current Medications Albuterol/Ipratropium (Duoneb 3 Mg/0.5 Mg (3 Ml) Ud) 3 ml INH RQ6 [facility] Last Admin: 01/29/17 08:00 Dose: Not Given Budesonide (Pulmicort Respules) 0.5 mg INH RQ12 [facility] Last Admin: 01/29/17 08:00 Dose: Not Given Digoxin (Lanoxin) 0.125 mg PO DAILY@1800 [facility] Last Admin: 01/28/17 17:21 Dose: 0.125 mg Furosemide (Lasix) 40 mg PO DAILY [facility] Last Admin: 01/29/17 11:22 Dose: Not Given Guaifenesin (Mucinex La) 600 mg PO BID [facility] Last Admin: 01/29/17 11:21 Dose: 600 mg Prednisone (Prednisone Tab) 40 mg PO DAILY [facility] Rosuvastatin Calcium (Crestor) 10 mg PO HS [facility] Last Admin: 01/18/17 22:03 Dose: 10 mg Spironolactone (Aldactone) 25 mg PO DAILY [facility] Last Admin: 01/29/17 11:22 Dose: 25 mg Tiotropium Hartwick (Spiriva) 18 mcg INH RQ24 [facility] Last Admin: 01/29/17 08:00 Dose: Not Given Warfarin Sodium (Coumadin) 3 mg PO 1800 [facility] Stop: 01/29/17 18:01 Warfarin Sodium (Coumadin) 4 mg PO 1800 [facility] Stop: 01/29/17 18:01 - Labs Labs: 01/28/17 14:59 01/28/17 14:59 PT 17.0 SECONDS (9.7-12.2) H 01/28/17 14:59 INR 1.5 01/28/17 14:59 APTT 26 SECONDS (21-34) 01/28/17 14:59 - Additional Findings Additional findings: - Constitutional Appears: No Acute Distress - Head Exam Head Exam: ATRAUMATIC, NORMOCEPHALIC - Eye Exam Eye Exam: EOMI Pupil Exam: NORMAL ACCOMODATION - ENT Exam ENT Exam: Mucous Membranes Moist, Normal Exam - Neck Exam Neck Exam: Full ROM, Normal Inspection - Respiratory Exam Respiratory Exam: Decreased Breath Sounds, Wheezes (expiratory, diffuse), Rhonchi (scattered), Respiratory Distress (with orthopnea). -desaturates to 82% while walking, 88% with NC 2L - Cardiovascular Exam Cardiovascular Exam: +S1, +S2, Murmur - GI/Abdominal Exam GI & Abdominal Exam: Soft, Tenderness Additional comments: -Tender to palpation at R sternal border, 2nd rib. Protrusion noted (chronic) -Waxing/waning tenderness to palpation over site of pacemaker (chronic) - Extremities Exam Extremities Exam: Joint Swelling (improved from previous) - Neurological Exam Neurological Exam: Alert, Awake - Psychiatric Exam Psychiatric exam: Normal Affect, Normal Mood - Skin Skin Exam: Intact, Warm Assessment and Plan - Assessment and Plan (Free Text) Assessment: 71 year old male with past medical history including AR, CAD with history of CABG and valve replacement 6-7 years ago. Reports worstenting SOB and dizziness with associated swelling of bilateral LE for past 2-3 days. Admits this is the first time he has experienced these symptoms. SOB is worse when he lays flat. Plan: -f/u PT eval 01/30/17. Required prior to discharge. -Discharge planning to [facility] once INR in 2.5-3.5 range and SOB is better controlled. Patient has [employer] insurance, case is working on rehab authorization. -01/22: Dr. Schmidt recommends pulmonary rehab, case is looking into facilities - none present locally COPD (chronic obstructive pulmonary disease) 01/29: Stop Solumedrol IVP; Start Prednisone 40mg PO daily; Taper on discharge. Will require home oxygen. -01/28: Solumedrol reduced to 40mg IVP Q12H. Prior to discharge, change Solumedrol -> Prednisone -01/19-01/28: Continue BIPAP, patient more compliant (sometimes refuses despite being SOB). -01/16: RAPID called due to SOB. BP 80/50's. Bolused 500cc NS. Ordered BIPAP and ABG, however patient refused. Placed back on NC 3L. -01/14-01/15: Patient complaining of SOB with exertion and orthopnea. Maintain Head of bed elevated 30 degrees. -01/13: PT session: 98% O2 at 2L at rest, 96% room air at rest sitting, 82% room air during ambulation, 88% at 2 liter ambulation. -01/12: Walked 20 steps today down [address], and patient became dizzy, SOB, and almost collapsed. - Consulted Pulmonology, Dr. Cobb, f/u recs -planning for home O2 - Aware of HR in 140's and SOB after eating and low levels of exertion. -f/u ABG (not collected) -LDH 654H -HIV - negative -persistent shortness of breath - Patient with long history of smoking most likely has underlying COPD. Nebulizer treatment. Inhaled steroids. Spiriva. PFT as out pt Systolic dysfunction with acute on chronic heart failure - EF 10-15%, mechanical MV- no regurg, tricuspid regurg. see full report -Chest CT 01/22 - Cardiomegaly. Cardiac valve prosthesis. Left-sided AICD. Dense coronary artery calcifications. -Small consolidation (favored to reflect atelectasis rather than pneumonia) at the left lung base. -Bibasilar atelectasis. Small airways disease. Mild ground-glass and fine nodular opacities within the right upper lobe, possibly infectious or inflammatory. -7 mm left upper lobe pulmonary nodule. Guidelines by the Fleischner society (radiology 2005; 237:390 5-400) suggests that in patients with low risk for lung cancer, with nodules less than or equal to 8 mm in diameter should have follow-up in approximately 6-12 months. In patients with high-risk, including smokers, follow-up is recommended 3-6 months. Patient with a known malignancy for risk for metastases should receive 3 month follow-up. -Hepatic capsular calcification. -Numerous low-density lesions throughout the liver, possibly cysts. Decompressed gallbladder limits evaluation. Bilateral hypodense renal lesions. Right adrenal gland hypertrophy. 12 mm left adrenal gland nodule measures approximately 9 Hounsfield units, likely adenoma. -Consulted Cardiology, Dr. Arguelles - f/u recs -01/22: Lasix 40mg IVP daily, Spironolactone 25mg daily. CXR - no interval pathology change. -01/19: HOLD LASIX FOR 1 TO 2 DAYS AND CONT MUCINEX. PT PRERENAL AND APPEARS DRY. ON BOTH LASIX AND SPIRONOLACTONE. -SOB APPEARS TO BE SECONDARY TO PULM ETIOLOGY. IMPROVES WITH NEBS. PT WITH RHONCHI B/L. MAY BENEFIT FROM PULM TOILET. -will attempt to obtain company of [facility] for interrogation. -likely deconditioned. will benefit from rehab -01/16: RAPID called due to SOB. BP 80/50's. Bolused 500cc NS. Ordered BIPAP and ABG, however patient refused. Placed back on NC 3L. ProBNP 4070H (less than # on admission) and KACY negative. -01/16: Decrease to Lasix 40mg PO daily (was BID). Admit to telemetry, BNP 4560 on admission Digoxin 0.125mg Lisinopril 10mg daily Aldactone 25mg PO Daily patient with AICD, will check echo to determine EF CXR 01/03: mild cardiomegaly, mild pulmonary venous congestion. s/p sternotomy, aortic valve replacement, AICD H/O mitral valve replacement with mechanical valve Cardiac valve replacement 6-7yrs ago Consulted Cardiology, Dr. Arguelles - f/u recs -echocardiogram reviewed. valve leaflets are opening and functional. There is no signficant gradient across the valve. -recommend INR 2.5 to 3.5. STOP Lovenox 3/5 STOP Heparin Drip - cardiac protocol, with bolus (because patient is refusing blood draws) 01/07: INR 1.3 3/2: INR refused, Coumadin 10mg 01/09: INR 1.5, Coumadin 10mg 01/10: INR 2.0, Coumadin 10mg 01/11: INR 2.4, Coumadin 7.5mg; patient received one more dose of Lovenox 80mg SC today, now discontinued as bridge complete. 01/12: INR 2.5, Coumadin 7.5mg 01/13: INR 3.1, Coumadin 5mg 01/14: INR 3.7, Coumadin 5mg (stopped by pharmacy) 01/15: INR 2.8, Coumadin 5mg 01/16: INR 2.6, Coumadin 4mg 01/17: INR 2.7, Coumadin 4 mg 01/18: INR 2.3 Coumadin 4mg 01/19: INR 2.1, Coumadin 6mg 01/20: INR 2.6, Coumadin 5mg 01/21: INR 2.6, Coumadin 5mg 01/22: INR 2.5, Coumadin 6mg 01/23: INR 2.9, Coumadin 6mg, 01/24: INR 3.6, Coumadin 6mg, f/u INR 01/25: HELD Coumadin, Pt. denied blood work today 01/26: HELD Coumadin, Pt. denied blood work today 01/27: INR 1.3, Coumadin 7mg, f/u 01/28: INR 1.5, Coumadin 7mg, f/u INR 01/29: INR 2.4, Coumadin 7mg, f/u INR Chronic atrial fibrillation Consulted Cardiology, Dr. Arguelles - f/u recs -Rate controlled -echocardiogram reviewed. valve leaflets are opening and functional. There is no signficant gradient across the valve. -recommend INR 2.5 to 3.5. -See PT/INR trends above Coumadin as above STOP Lovenox 01/11 Cough, acute -01/28: cough intermittent -01/24 does not complain of cough -01/19-01/22: Persists. Non-productive. Continue Mucinex. -01/15: patient developed productive cough with yellow sputum today. -Mucinex 600mg PO BID. CAD (coronary artery disease) Consulted Cardiology, Dr. Arguelles - f/u recs -Aware of HR in 140's and SOB after eating and low levels of exertion. -unknown graft status. no evidence of ischemia at present -No current angina History of AR (myocardial infarction) HOLD Crestor 10mg PO HS (last dose 01/18- due to elevated LFTs) ROMIs negative x3 EKG paced Denies chest pain Transaminitis, acute 01/28-01/29: Improving. hold crestor (since 01/18) 01/27: AST 37 / ALT 124 - continue to hold crestor. 01/25-01/26: Patient refused blood work 01/24: 51/164 AST / ALT down trending 01/22-01/23: AST / ALT down trending - continue to hold Crestor 01/21: AST 57 / ALT 188, decreasing. HOLD Crestor 10mg PO HS (last dose 01/18- due to elevated LFTs) 01/20: AST 75 / ALT 205 01/19: AST 70 / ALT 201 - increasing -> hold crestor for 2 nights 01/19, 01/20 01/16: AST 90 / ALT 164 - increasing -> hold Crestor tonight. - AST 77 / ALT 98 -> previously normal. - Continue to monitor Electrolyte Imbalance 01/21-01/29: Hyponatremia, stable Hyperkalemia - resolved Hypokalemia, Tachycardia HR WNL, continue to monitor 01/20-01/23: HR WNL 01/13: Patient becomes SOB very easily, desaturating to 82% while ambulating. Anytime he eats or gets up, HR climbs into 140's Continue Digoxin 0.125mg EKG in ER: sinus tachycardia at 100, paced, incomplete RBBB Discontinued cardizem drip of 5mg/h started in the ER Lower extremity edema LE Duplex - negative. see full report. Prophylactic measure Coumadin as above. protonix 40mg daily SCD contraindicated due to LE edema D/C when bed available <Johnnie Otoole Jr. - Last Filed: 01/31/17 12:06> Objective - Vital Signs/Intake and Output Vital Signs (last 24 hours): Temp Pulse Resp BP Pulse Ox 98 F 80 18 97/59 L 99 01/31/17 07:30 01/31/17 07:30 01/31/17 07:30 01/31/17 07:30 01/31/17 07:30 Intake and Output: 01/31/17 01/31/17 06:59 18:59 Intake Total 500 Balance 500 - Medications Medications: Current Medications Albuterol/Ipratropium (Duoneb 3 Mg/0.5 Mg (3 Ml) Ud) 3 ml INH RQ6 [facility] Last Admin: 01/31/17 09:14 Dose: 3 ml Benzocaine/Menthol (Cepacol Sore Throat) 1 sarah MT Q6H PRN PRN Reason: Sore Throat Last Admin: 01/31/17 00:53 Dose: 1 sarah Budesonide (Pulmicort Respules) 0.5 mg INH RQ12 [facility] Last Admin: 01/31/17 09:14 Dose: 0.5 mg Digoxin (Lanoxin) 0.125 mg PO DAILY@1800 [facility] Last Admin: 01/30/17 17:12 Dose: 0.125 mg Furosemide (Lasix) 40 mg PO DAILY [facility] Last Admin: 01/30/17 09:03 Dose: 40 mg Guaifenesin (Mucinex La) 600 mg PO BID [facility] Last Admin: 01/30/17 17:19 Dose: 600 mg Prednisone (Prednisone Tab) 40 mg PO DAILY [facility] Last Admin: 01/30/17 09:03 Dose: 40 mg Rosuvastatin Calcium (Crestor) 10 mg PO HS [facility] Last Admin: 01/18/17 22:03 Dose: 10 mg Spironolactone (Aldactone) 25 mg PO DAILY [facility] Last Admin: 01/30/17 09:03 Dose: 25 mg Tiotropium Hartwick (Spiriva) 18 mcg INH RQ24 [facility] Last Admin: 01/31/17 09:12 Dose: 18 mcg - Labs Labs: 01/29/17 17:03 01/29/17 17:03 PT 37.8 SECONDS (9.7-12.2) H* D 01/30/17 11:15 INR 3.3 01/30/17 11:15 APTT 30 SECONDS (21-34) 01/30/17 11:15 Attending/Attestation - Attestation I have personally seen and examined this patient.: Yes I have fully participated in the care of the patient.: Yes I have reviewed all pertinent clinical information, including history, physical exam and plan: Yes
[2017-01-29 17:11] LABS: BASO % 0.1 % (0.0-2.0); HEMATOCRIT 44.7 % (35.0-51.0); LYMPH # 0.3 K/uL (1.0-4.3); LYMPH % 1.7 % (20.0-40.0); MEAN CELL VOLUME 81.6 fL (80.0-94.0); MEAN CORPUSCULAR HEMOGLOBIN 25.8 pg (27.0-31.0); MEAN CORPUSCULAR HGB CONC 31.6 g/dL (33.0-37.0); MEAN PLATELET VOLUME 7.3 fL (7.2-11.7); MONO # 0.9 K/uL (0.0-0.8); MONO % 5.4 % (0.0-10.0); PLATELET COUNT 210 K/uL (130-400); RED CELL DISTRIBUTION WIDTH 18.6 % (11.5-14.5)
[2017-01-29 17:19] LABS: CHLORIDE 89 mmol/L (98-107); POTASSIUM 4.8 mmol/L (3.6-5.2); SODIUM 130 mmol/L (132-148)
[2017-01-29 17:20] LABS: INR 2.4
[2017-01-29 17:21] LABS: ALB/GLOB RATIO 1.3 (1.0-2.1); AST/SGOT 43 U/L (17-59); CARBON DIOXIDE 30 mmol/L (22-30); GFR AFRICAN-AMERICAN > 60; TOTAL PROTEIN 6.3 g/dL (6.3-8.3)
[2017-01-29 17:22] LABS: ALKALINE PHOSPHATASE 74 U/L (38-126); ALT/SGPT 105 U/L (21-72); BLOOD UREA NITROGEN 41 mg/dL (9-20); CALCIUM 8.7 mg/dl (8.6-10.4); GLUCOSE,RANDOM 114 mg/dL (75-110); MAGNESIUM 2.2 mg/dL (1.6-2.3)
[2017-01-29] MEDS: Digoxin 125 mcg (0.125 mg) Tab PO SCH (18:05)
[2017-01-29 18:26] LABS: NEUTROPHIL 93 % (50-75); TOTAL CELLS COUNTED 100
[2017-01-29 18:28] LABS: LARGE PLATELETS PRESENT
[2017-01-30] MEDS: Albuterol-Ipratrop 3 mg / 0.5 (3 ml) UD INH SCH ×4 (01:06→19:47)
[2017-01-30] MEDS: Benzocaine/Menthol (Cepacol) Lozenge MT PRN (04:15)
[2017-01-30] MEDS: Tiotropium 18 mcg Cap For Inhalation INH SCH (07:46)
[2017-01-30] MEDS: Budesonide 0.5 mg/2 ml Inhal Susp UD INH SCH ×2 (07:46→19:47)
--- NOTE | 2017-01-30 08:00 | CP.PCM.PN ---
<Wale Castillo - Last Filed: 01/30/17 16:56> Subjective - Date & Time of Evaluation Date of Evaluation: 01/30/17 Time of Evaluation: 07:57 - Subjective Subjective: PGY-1 note for medicine service Pt seen and examined at bedside. Observed to be sleeping comfortably. Upon awakening the pt stated that his throat was bothering him which is consistent with overnight staff reports. States his breathing is at baseline. Denies any fevers, chills, chest pain, palpitations, increased sob, nausea or vomiting. Objective - Vital Signs/Intake and Output Vital Signs (last 24 hours): Temp Pulse Resp BP Pulse Ox 98.7 F 82 20 127/67 97 01/29/17 23:35 01/30/17 00:15 01/29/17 23:35 01/29/17 23:35 01/29/17 23:35 Intake and Output: 01/30/17 01/30/17 06:59 18:59 Output Total 900 Balance -900 - Medications Medications: Current Medications Albuterol/Ipratropium (Duoneb 3 Mg/0.5 Mg (3 Ml) Ud) 3 ml INH RQ6 [facility] Last Admin: 01/30/17 07:46 Dose: 3 ml Benzocaine/Menthol (Cepacol Sore Throat) 1 sarah MT Q6H PRN PRN Reason: Sore Throat Last Admin: 01/30/17 04:15 Dose: 1 sarah Budesonide (Pulmicort Respules) 0.5 mg INH RQ12 [facility] Last Admin: 01/30/17 07:46 Dose: 0.5 mg Digoxin (Lanoxin) 0.125 mg PO DAILY@1800 [facility] Last Admin: 01/29/17 18:05 Dose: 0.125 mg Furosemide (Lasix) 40 mg PO DAILY [facility] Last Admin: 01/29/17 11:22 Dose: Not Given Guaifenesin (Mucinex La) 600 mg PO BID [facility] Last Admin: 01/29/17 18:05 Dose: 600 mg Prednisone (Prednisone Tab) 40 mg PO DAILY [facility] Last Admin: 01/29/17 21:05 Dose: 40 mg Rosuvastatin Calcium (Crestor) 10 mg PO HS [facility] Last Admin: 01/18/17 22:03 Dose: 10 mg Spironolactone (Aldactone) 25 mg PO DAILY [facility] Last Admin: 01/29/17 11:22 Dose: 25 mg Tiotropium Morrow (Spiriva) 18 mcg INH RQ24 [facility] Last Admin: 01/30/17 07:46 Dose: 18 mcg - Labs Labs: 01/29/17 17:03 01/29/17 17:03 PT 27.0 SECONDS (9.7-12.2) H D 01/29/17 17:03 INR 2.4 D 01/29/17 17:03 APTT 29 SECONDS (21-34) 01/29/17 17:03 - Constitutional Appears: Non-toxic, Chronically Ill - Head Exam Head Exam: ATRAUMATIC, NORMOCEPHALIC - ENT Exam ENT Exam: Mucous Membranes Moist - Respiratory Exam Respiratory Exam: Decreased Breath Sounds, Rhonchi (mild), Wheezes (diffuse, expiratory), NORMAL BREATHING PATTERN - Cardiovascular Exam Cardiovascular Exam: +S1, +S2 - GI/Abdominal Exam GI & Abdominal Exam: Soft, Normal Bowel Sounds. absent: Tenderness - Neurological Exam Neurological Exam: Alert, Awake - Skin Skin Exam: Dry, Warm Assessment and Plan - Assessment and Plan (Free Text) Assessment: -f/u PT eval 01/30/17. Required prior to discharge. -Discharge planning to [facility] once INR in 2.5-3.5 range and SOB is better controlled. Patient has [employer] insurance, case is working on rehab authorization. -01/22: Dr. Schmidt recommends pulmonary rehab, case is looking into facilities - none present locally COPD (chronic obstructive pulmonary disease) 01/29: Stop Solumedrol IVP; Start Prednisone 40mg PO daily; Taper on discharge. Will require home oxygen. -01/28: Solumedrol reduced to 40mg IVP Q12H. Prior to discharge, change Solumedrol -> Prednisone -01/19-01/28: Continue BIPAP, patient more compliant (sometimes refuses despite being SOB). -01/16: RAPID called due to SOB. BP 80/50's. Bolused 500cc NS. Ordered BIPAP and ABG, however patient refused. Placed back on NC 3L. -01/14-01/15: Patient complaining of SOB with exertion and orthopnea. Maintain Head of bed elevated 30 degrees. -01/13: PT session: 98% O2 at 2L at rest, 96% room air at rest sitting, 82% room air during ambulation, 88% at 2 liter ambulation. -01/12: Walked 20 steps today down [address], and patient became dizzy, SOB, and almost collapsed. - Consulted Pulmonology, Dr. Cobb, f/u recs -planning for home O2 - Aware of HR in 140's and SOB after eating and low levels of exertion. -f/u ABG (not collected) -LDH 654H -HIV - negative -persistent shortness of breath - Patient with long history of smoking most likely has underlying COPD. Nebulizer treatment. Inhaled steroids. Spiriva. PFT as out pt Systolic dysfunction with acute on chronic heart failure - EF 10-15%, mechanical MV- no regurg, tricuspid regurg. see full report -Chest CT 01/22 - Cardiomegaly. Cardiac valve prosthesis. Left-sided AICD. Dense coronary artery calcifications. -Small consolidation (favored to reflect atelectasis rather than pneumonia) at the left lung base. -Bibasilar atelectasis. Small airways disease. Mild ground-glass and fine nodular opacities within the right upper lobe, possibly infectious or inflammatory. -7 mm left upper lobe pulmonary nodule. Guidelines by the Fleischner society (radiology 2005; 237:390 5-400) suggests that in patients with low risk for lung cancer, with nodules less than or equal to 8 mm in diameter should have follow-up in approximately 6-12 months. In patients with high-risk, including smokers, follow-up is recommended 3-6 months. Patient with a known malignancy for risk for metastases should receive 3 month follow-up. -Hepatic capsular calcification. -Numerous low-density lesions throughout the liver, possibly cysts. Decompressed gallbladder limits evaluation. Bilateral hypodense renal lesions. Right adrenal gland hypertrophy. 12 mm left adrenal gland nodule measures approximately 9 Hounsfield units, likely adenoma. -Consulted Cardiology, Dr. Arguelles - f/u recs -01/22: Lasix 40mg IVP daily, Spironolactone 25mg daily. CXR - no interval pathology change. -01/19: HOLD LASIX FOR 1 TO 2 DAYS AND CONT MUCINEX. PT PRERENAL AND APPEARS DRY. ON BOTH LASIX AND SPIRONOLACTONE. -SOB APPEARS TO BE SECONDARY TO PULM ETIOLOGY. IMPROVES WITH NEBS. PT WITH RHONCHI B/L. MAY BENEFIT FROM PULM TOILET. -will attempt to obtain company of AICD for interrogation. -likely deconditioned. will benefit from rehab -01/16: RAPID called due to SOB. BP 80/50's. Bolused 500cc NS. Ordered BIPAP and ABG, however patient refused. Placed back on NC 3L. ProBNP 4070H (less than # on admission) and KACY negative. -01/16: Decrease to Lasix 40mg PO daily (was BID). Admit to telemetry, BNP 4560 on admission Digoxin 0.125mg Lisinopril 10mg daily Aldactone 25mg PO Daily patient with AICD, will check echo to determine EF CXR 01/03: mild cardiomegaly, mild pulmonary venous congestion. s/p sternotomy, aortic valve replacement, AICD H/O mitral valve replacement with mechanical valve Cardiac valve replacement 6-7yrs ago Consulted Cardiology, Dr. Arguelles - f/u recs -echocardiogram reviewed. valve leaflets are opening and functional. There is no signficant gradient across the valve. -recommend INR 2.5 to 3.5. STOP Lovenox 3/5 STOP Heparin Drip - cardiac protocol, with bolus (because patient is refusing blood draws) 01/07: INR 1.3 01/08: INR refused, Coumadin 10mg 01/09: INR 1.5, Coumadin 10mg 01/10: INR 2.0, Coumadin 10mg 01/11: INR 2.4, Coumadin 7.5mg; patient received one more dose of Lovenox 80mg SC today, now discontinued as bridge complete. 01/12: INR 2.5, Coumadin 7.5mg 01/13: INR 3.1, Coumadin 5mg 01/14: INR 3.7, Coumadin 5mg (stopped by pharmacy) 01/15: INR 2.8, Coumadin 5mg 01/16: INR 2.6, Coumadin 4mg 01/17: INR 2.7, Coumadin 4 mg 01/18: INR 2.3 Coumadin 4mg 01/19: INR 2.1, Coumadin 6mg 01/20: INR 2.6, Coumadin 5mg 01/21: INR 2.6, Coumadin 5mg 01/22: INR 2.5, Coumadin 6mg 01/23: INR 2.9, Coumadin 6mg, 01/24: INR 3.6, Coumadin 6mg, f/u INR 01/25: HELD Coumadin, Pt. denied blood work today 01/26: HELD Coumadin, Pt. denied blood work today 01/27: INR 1.3, Coumadin 7mg, f/u 01/28: INR 1.5, Coumadin 7mg, f/u INR 01/29: INR 2.4, Coumadin 7mg, f/u INR 01/30: INR 3.3, Coumadin 6mg, f/u INR Chronic atrial fibrillation Consulted Cardiology, Dr. Arguelles - f/u recs -Rate controlled -echocardiogram reviewed. valve leaflets are opening and functional. There is no signficant gradient across the valve. -recommend INR 2.5 to 3.5. -See PT/INR trends above Coumadin as above STOP Lovenox 01/11 Cough, acute -01/28: cough intermittent -01/24 does not complain of cough -01/19-01/22: Persists. Non-productive. Continue Mucinex. -01/15: patient developed productive cough with yellow sputum today. -Mucinex 600mg PO BID. CAD (coronary artery disease) Consulted Cardiology, Dr. Arguelles - f/u recs -Aware of HR in 140's and SOB after eating and low levels of exertion. -unknown graft status. no evidence of ischemia at present -No current angina History of [place] (myocardial infarction) HOLD Crestor 10mg PO HS (last dose 01/18- due to elevated LFTs) ROMIs negative x3 EKG paced Denies chest pain Transaminitis, acute 01/28-01/29: Improving. hold crestor (since 01/18) 01/27: AST 37 / ALT 124 - continue to hold crestor. 01/25-01/26: Patient refused blood work 01/24: 51/164 AST / ALT down trending 01/22-01/23: AST / ALT down trending - continue to hold Crestor 01/21: AST 57 / ALT 188, decreasing. HOLD Crestor 10mg PO HS (last dose 01/18- due to elevated LFTs) 01/20: AST 75 / ALT 205 01/19: AST 70 / ALT 201 - increasing -> hold crestor for 2 nights 01/19, 01/20 01/16: AST 90 / ALT 164 - increasing -> hold Crestor tonight. - AST 77 / ALT 98 -> previously normal. - Continue to monitor Electrolyte Imbalance 01/21-01/29: Hyponatremia, stable Hyperkalemia - resolved Hypokalemia, Tachycardia HR WNL, continue to monitor 01/20-01/23: HR WNL 01/13: Patient becomes SOB very easily, desaturating to 82% while ambulating. Anytime he eats or gets up, HR climbs into 140's Continue Digoxin 0.125mg EKG in ER: sinus tachycardia at 100, paced, incomplete RBBB Discontinued cardizem drip of 5mg/h started in the ER Lower extremity edema LE Duplex - negative. see full report. Prophylactic measure Coumadin as above. protonix 40mg daily SCD contraindicated due to LE edema D/C when bed available <Johnnie Ootole Jr. - Last Filed: 01/31/17 12:06> Objective - Vital Signs/Intake and Output Vital Signs (last 24 hours): Temp Pulse Resp BP Pulse Ox 98 F 80 18 97/59 L 99 01/31/17 07:30 01/31/17 07:30 01/31/17 07:30 01/31/17 07:30 01/31/17 07:30 Intake and Output: 01/31/17 01/31/17 06:59 18:59 Intake Total 500 Balance 500 - Medications Medications: Current Medications Albuterol/Ipratropium (Duoneb 3 Mg/0.5 Mg (3 Ml) Ud) 3 ml INH RQ6 [facility] Last Admin: 01/31/17 09:14 Dose: 3 ml Benzocaine/Menthol (Cepacol Sore Throat) 1 sarah MT Q6H PRN PRN Reason: Sore Throat Last Admin: 01/31/17 00:53 Dose: 1 sarah Budesonide (Pulmicort Respules) 0.5 mg INH RQ12 [facility] Last Admin: 01/31/17 09:14 Dose: 0.5 mg Digoxin (Lanoxin) 0.125 mg PO DAILY@1800 [facility] Last Admin: 01/30/17 17:12 Dose: 0.125 mg Furosemide (Lasix) 40 mg PO DAILY [facility] Last Admin: 01/30/17 09:03 Dose: 40 mg Guaifenesin (Mucinex La) 600 mg PO BID [facility] Last Admin: 01/30/17 17:19 Dose: 600 mg Prednisone (Prednisone Tab) 40 mg PO DAILY [facility] Last Admin: 01/30/17 09:03 Dose: 40 mg Rosuvastatin Calcium (Crestor) 10 mg PO HS [facility] Last Admin: 01/18/17 22:03 Dose: 10 mg Spironolactone (Aldactone) 25 mg PO DAILY [facility] Last Admin: 01/30/17 09:03 Dose: 25 mg Tiotropium Morrow (Spiriva) 18 mcg INH RQ24 [facility] Last Admin: 01/31/17 09:12 Dose: 18 mcg - Labs Labs: 01/29/17 17:03 01/29/17 17:03 PT 37.8 SECONDS (9.7-12.2) H* D 01/30/17 11:15 INR 3.3 01/30/17 11:15 APTT 30 SECONDS (21-34) 01/30/17 11:15 Attending/Attestation - Attestation I have personally seen and examined this patient.: Yes I have fully participated in the care of the patient.: Yes I have reviewed all pertinent clinical information, including history, physical exam and plan: Yes
[2017-01-30] MEDS: guaiFENesin 600 mg ER Tab PO SCH ×2 (09:02→17:19)
[2017-01-30 11:35] LABS: INR 3.3
[2017-01-30] MEDS: Digoxin 125 mcg (0.125 mg) Tab PO SCH (17:12)
[2017-01-31] MEDS: Benzocaine/Menthol (Cepacol) Lozenge MT PRN (00:53)
--- NOTE | 2017-01-31 01:10 | CP.PCM.PN ---
<MarionbeatrisLenny - Last Filed: 01/31/17 08:01> Subjective - Date & Time of Evaluation Date of Evaluation: 01/31/17 Time of Evaluation: 01:00 - Subjective Subjective: PGY-1 note for medicine service Pt seen and examined at bedside. No acute events per nursing. Resting comfortably with nasal canula in place. Continued throat irritation. His breathing is at baseline, will require home oxygen, however patient is homeless. Denies any fevers, chills, chest pain, palpitations, increased sob, nausea or vomiting. Objective - Vital Signs/Intake and Output Vital Signs (last 24 hours): Temp Pulse Resp BP Pulse Ox 98.0 F 90 20 94/60 L 97 01/31/17 00:46 01/31/17 00:46 01/31/17 00:46 01/31/17 00:46 01/31/17 00:46 Intake and Output: 01/30/17 01/31/17 18:59 06:59 Intake Total 480 500 Balance 480 500 - Medications Medications: Current Medications Albuterol/Ipratropium (Duoneb 3 Mg/0.5 Mg (3 Ml) Ud) 3 ml INH RQ6 [facility] Last Admin: 01/30/17 19:47 Dose: 3 ml Benzocaine/Menthol (Cepacol Sore Throat) 1 sarah MT Q6H PRN PRN Reason: Sore Throat Last Admin: 01/31/17 00:53 Dose: 1 asrah Budesonide (Pulmicort Respules) 0.5 mg INH RQ12 [facility] Last Admin: 01/30/17 19:47 Dose: 0.5 mg Digoxin (Lanoxin) 0.125 mg PO DAILY@1800 [facility] Last Admin: 01/30/17 17:12 Dose: 0.125 mg Furosemide (Lasix) 40 mg PO DAILY [facility] Last Admin: 01/30/17 09:03 Dose: 40 mg Guaifenesin (Mucinex La) 600 mg PO BID [facility] Last Admin: 01/30/17 17:19 Dose: 600 mg Prednisone (Prednisone Tab) 40 mg PO DAILY [facility] Last Admin: 01/30/17 09:03 Dose: 40 mg Rosuvastatin Calcium (Crestor) 10 mg PO HS [facility] Last Admin: 01/18/17 22:03 Dose: 10 mg Spironolactone (Aldactone) 25 mg PO DAILY [facility] Last Admin: 03/24/17 09:03 Dose: 25 mg Tiotropium Echo (Spiriva) 18 mcg INH RQ24 [facility] Last Admin: 01/30/17 07:46 Dose: 18 mcg - Labs Labs: 01/29/17 17:03 01/29/17 17:03 PT 37.8 SECONDS (9.7-12.2) H* D 01/30/17 11:15 INR 3.3 01/30/17 11:15 APTT 30 SECONDS (21-34) 01/30/17 11:15 - Additional Findings Additional findings: - Constitutional Appears: No Acute Distress - Head Exam Head Exam: ATRAUMATIC, NORMOCEPHALIC - Eye Exam Eye Exam: EOMI Pupil Exam: NORMAL ACCOMODATION - ENT Exam ENT Exam: Mucous Membranes Moist, Normal Exam -L throat tender to palpation - Neck Exam Neck Exam: Full ROM, Normal Inspection - Respiratory Exam Respiratory Exam: Decreased Breath Sounds, Wheezes (expiratory, diffuse), Rhonchi (scattered), Respiratory Distress (with orthopnea). -desaturates to 82% while walking, 88% with NC 2L - Cardiovascular Exam Cardiovascular Exam: +S1, +S2, Murmur - GI/Abdominal Exam GI & Abdominal Exam: Soft, Tenderness Additional comments: -Tender to palpation at R sternal border, 2nd rib. Protrusion noted (chronic) -Waxing/waning tenderness to palpation over site of pacemaker (chronic) - Extremities Exam Extremities Exam: Joint Swelling (improved from previous) - Neurological Exam Neurological Exam: Alert, Awake - Psychiatric Exam Psychiatric exam: Normal Affect, Normal Mood - Skin Skin Exam: Intact, Warm Assessment and Plan - Assessment and Plan (Free Text) Assessment: -f/u PT eval 01/30/17. Required prior to discharge. -Discharge planning to [facility] once INR in 2.5-3.5 range and SOB is better controlled. Patient has [employer] insurance, case is working on rehab authorization. -01/22: Dr. Schmidt recommends pulmonary rehab, case is looking into facilities - none present locally COPD (chronic obstructive pulmonary disease) 01/31: Prednisone 40mg PO daily; Taper on discharge. Will require home oxygen. 01/29: Stop Solumedrol IVP; Start Prednisone 40mg PO daily; Taper on discharge. Will require home oxygen. -01/28: Solumedrol reduced to 40mg IVP Q12H. Prior to discharge, change Solumedrol -> Prednisone -01/19-01/28: Continue BIPAP, patient more compliant (sometimes refuses despite being SOB). -01/16: RAPID called due to SOB. BP 80/50's. Bolused 500cc NS. Ordered BIPAP and ABG, however patient refused. Placed back on NC 3L. -01/14-01/15: Patient complaining of SOB with exertion and orthopnea. Maintain Head of bed elevated 30 degrees. -01/13: PT session: 98% O2 at 2L at rest, 96% room air at rest sitting, 82% room air during ambulation, 88% at 2 liter ambulation. -01/12: Walked 20 steps today down bruno, and patient became dizzy, SOB, and almost collapsed. - Consulted Pulmonology, Dr. Cobb, f/u recs -planning for home O2 - Aware of HR in 140's and SOB after eating and low levels of exertion. -f/u ABG (not collected) -LDH 654H -HIV - negative -persistent shortness of breath - Patient with long history of smoking most likely has underlying COPD. Nebulizer treatment. Inhaled steroids. Spiriva. PFT as out pt Systolic dysfunction with acute on chronic heart failure - EF 10-15%, mechanical MV- no regurg, tricuspid regurg. see full report -Chest CT 01/22 - Cardiomegaly. Cardiac valve prosthesis. Left-sided AICD. Dense coronary artery calcifications. -Small consolidation (favored to reflect atelectasis rather than pneumonia) at the left lung base. -Bibasilar atelectasis. Small airways disease. Mild ground-glass and fine nodular opacities within the right upper lobe, possibly infectious or inflammatory. -7 mm left upper lobe pulmonary nodule. Guidelines by the Fleischner society (radiology 2005; 237:390 5-400) suggests that in patients with low risk for lung cancer, with nodules less than or equal to 8 mm in diameter should have follow-up in approximately 6-12 months. In patients with high-risk, including smokers, follow-up is recommended 3-6 months. Patient with a known malignancy for risk for metastases should receive 3 month follow-up. -Hepatic capsular calcification. -Numerous low-density lesions throughout the liver, possibly cysts. Decompressed gallbladder limits evaluation. Bilateral hypodense renal lesions. Right adrenal gland hypertrophy. 12 mm left adrenal gland nodule measures approximately 9 Hounsfield units, likely adenoma. -Consulted Cardiology, Dr. Arguelles - f/u recs -01/22: Lasix 40mg IVP daily, Spironolactone 25mg daily. CXR - no interval pathology change. -01/19: HOLD LASIX FOR 1 TO 2 DAYS AND CONT MUCINEX. PT PRERENAL AND APPEARS DRY. ON BOTH LASIX AND SPIRONOLACTONE. -SOB APPEARS TO BE SECONDARY TO PULM ETIOLOGY. IMPROVES WITH NEBS. PT WITH RHONCHI B/L. MAY BENEFIT FROM PULM TOILET. -will attempt to obtain company of [facility] for interrogation. -likely deconditioned. will benefit from rehab -01/16: RAPID called due to SOB. BP 80/50's. Bolused 500cc NS. Ordered BIPAP and ABG, however patient refused. Placed back on NC 3L. ProBNP 4070H (less than # on admission) and KACY negative. -01/16: Decrease to Lasix 40mg PO daily (was BID). Admit to telemetry, BNP 4560 on admission Digoxin 0.125mg Lisinopril 10mg daily Aldactone 25mg PO Daily patient with AICD, will check echo to determine EF CXR 01/03: mild cardiomegaly, mild pulmonary venous congestion. s/p sternotomy, aortic valve replacement, AICD H/O mitral valve replacement with mechanical valve Cardiac valve replacement 6-7yrs ago Consulted Cardiology, Dr. Arguelles - f/u recs -echocardiogram reviewed. valve leaflets are opening and functional. There is no signficant gradient across the valve. -recommend INR 2.5 to 3.5. STOP Lovenox 3/5 STOP Heparin Drip - cardiac protocol, with bolus (because patient is refusing blood draws) 01/07: INR 1.3 32: INR refused, Coumadin 10mg 01/09: INR 1.5, Coumadin 10mg 01/10: INR 2.0, Coumadin 10mg 01/11: INR 2.4, Coumadin 7.5mg; patient received one more dose of Lovenox 80mg SC today, now discontinued as bridge complete. 01/12: INR 2.5, Coumadin 7.5mg 01/13: INR 3.1, Coumadin 5mg 01/14: INR 3.7, Coumadin 5mg (stopped by pharmacy) 01/15: INR 2.8, Coumadin 5mg 01/16: INR 2.6, Coumadin 4mg 01/17: INR 2.7, Coumadin 4 mg 01/18: INR 2.3 Coumadin 4mg 01/19: INR 2.1, Coumadin 6mg 01/20: INR 2.6, Coumadin 5mg 01/21: INR 2.6, Coumadin 5mg 01/22: INR 2.5, Coumadin 6mg 01/23: INR 2.9, Coumadin 6mg, 01/24: INR 3.6, Coumadin 6mg, f/u INR 01/25: HELD Coumadin, Pt. denied blood work today 01/26: HELD Coumadin, Pt. denied blood work today 01/27: INR 1.3, Coumadin 7mg, f/u 01/28: INR 1.5, Coumadin 7mg, f/u INR 01/29: INR 2.4, Coumadin 7mg, f/u INR 01/30: INR 3.3, Coumadin 6mg, f/u INR 01/31: f/u INR - administer Coumadin Chronic atrial fibrillation Consulted Cardiology, Dr. Arguelles - f/u recs -Rate controlled -echocardiogram reviewed. valve leaflets are opening and functional. There is no signficant gradient across the valve. -recommend INR 2.5 to 3.5. -See PT/INR trends above Coumadin as above STOP Lovenox 01/11 Cough, acute -01/28: cough intermittent -01/24 does not complain of cough -01/19-01/22: Persists. Non-productive. Continue Mucinex. -01/15: patient developed productive cough with yellow sputum today. -Mucinex 600mg PO BID. CAD (coronary artery disease) Consulted Cardiology, Dr. Arguelles - f/u recs -Aware of HR in 140's and SOB after eating and low levels of exertion. -unknown graft status. no evidence of ischemia at present -No current angina History of [place] (myocardial infarction) HOLD Crestor 10mg PO HS (last dose 01/18- due to elevated LFTs) ROMIs negative x3 EKG paced Denies chest pain Transaminitis, acute 01/30-01/31: patient refusing labs. will re-attempt 01/28-01/29: Improving. hold crestor (since 01/18) 01/27: AST 37 / ALT 124 - continue to hold crestor. 01/25-01/26: Patient refused blood work 01/24: 51/164 AST / ALT down trending 01/22-01/23: AST / ALT down trending - continue to hold Crestor 01/21: AST 57 / ALT 188, decreasing. HOLD Crestor 10mg PO HS (last dose 01/18- due to elevated LFTs) 01/20: AST 75 / ALT 205 01/19: AST 70 / ALT 201 - increasing -> hold crestor for 2 nights 01/19, 01/20 01/16: AST 90 / ALT 164 - increasing -> hold Crestor tonight. - AST 77 / ALT 98 -> previously normal. - Continue to monitor Electrolyte Imbalance 01/30-01/31: patient refusing labs, will re-attempt 01/21-01/29: Hyponatremia, stable Hyperkalemia - resolved Hypokalemia, Tachycardia HR grossly WNL, continue to monitor 01/20-01/23: HR WNL 01/13: Patient becomes SOB very easily, desaturating to 82% while ambulating. Anytime he eats or gets up, HR climbs into 140's Continue Digoxin 0.125mg EKG in ER: sinus tachycardia at 100, paced, incomplete RBBB Discontinued cardizem drip of 5mg/h started in the ER Lower extremity edema LE Duplex - negative. see full report. Prophylactic measure Coumadin as above. protonix 40mg daily SCD contraindicated due to LE edema D/C when bed available <Johnnie Otoole Jr. - Last Filed: 01/31/17 12:09> Objective - Vital Signs/Intake and Output Vital Signs (last 24 hours): Temp Pulse Resp BP Pulse Ox 98 F 80 18 97/59 L 99 01/31/17 07:30 01/31/17 07:30 01/31/17 07:30 01/31/17 07:30 01/31/17 07:30 Intake and Output: 01/31/17 01/31/17 06:59 18:59 Intake Total 500 Balance 500 - Medications Medications: Current Medications Albuterol/Ipratropium (Duoneb 3 Mg/0.5 Mg (3 Ml) Ud) 3 ml INH RQ6 [facility] Last Admin: 01/31/17 09:14 Dose: 3 ml Benzocaine/Menthol (Cepacol Sore Throat) 1 sarah MT Q6H PRN PRN Reason: Sore Throat Last Admin: 01/31/17 00:53 Dose: 1 sarah Budesonide (Pulmicort Respules) 0.5 mg INH RQ12 [facility] Last Admin: 01/31/17 09:14 Dose: 0.5 mg Digoxin (Lanoxin) 0.125 mg PO DAILY@1800 [facility] Last Admin: 01/30/17 17:12 Dose: 0.125 mg Furosemide (Lasix) 40 mg PO DAILY [facility] Last Admin: 01/30/17 09:03 Dose: 40 mg Guaifenesin (Mucinex La) 600 mg PO BID [facility] Last Admin: 01/30/17 17:19 Dose: 600 mg Prednisone (Prednisone Tab) 40 mg PO DAILY [facility] Last Admin: 01/30/17 09:03 Dose: 40 mg Rosuvastatin Calcium (Crestor) 10 mg PO HS [facility] Last Admin: 01/18/17 22:03 Dose: 10 mg Spironolactone (Aldactone) 25 mg PO DAILY [facility] Last Admin: 01/30/17 09:03 Dose: 25 mg Tiotropium Echo (Spiriva) 18 mcg INH RQ24 [facility] Last Admin: 01/31/17 09:12 Dose: 18 mcg - Labs Labs: 01/29/17 17:03 01/29/17 17:03 PT 37.8 SECONDS (9.7-12.2) H* D 01/30/17 11:15 INR 3.3 01/30/17 11:15 APTT 30 SECONDS (21-34) 01/30/17 11:15 Attending/Attestation - Attestation I have personally seen and examined this patient.: Yes I have fully participated in the care of the patient.: Yes I have reviewed all pertinent clinical information, including history, physical exam and plan: Yes
[2017-01-31] MEDS: Albuterol-Ipratrop 3 mg / 0.5 (3 ml) UD INH SCH ×4 (01:55→19:55)
[2017-01-31] MEDS: Tiotropium 18 mcg Cap For Inhalation INH SCH (09:12)
[2017-01-31] MEDS: Budesonide 0.5 mg/2 ml Inhal Susp UD INH SCH ×2 (09:14→19:55)
--- NOTE | 2017-01-31 14:58 | CARD ---
APPROVED REPORT EKG Measurement Heart [id number] <Conclusion> Electronic ventricular pacemaker
[2017-01-31] MEDS: guaiFENesin 600 mg ER Tab PO SCH ×2 (17:30→18:00)
[2017-01-31] MEDS: Digoxin 125 mcg (0.125 mg) Tab PO SCH (17:30)
[2017-01-31 20:35] LABS: BASO % 0.2 % (0.0-2.0); HEMATOCRIT 39.4 % (35.0-51.0); LYMPH # 0.3 K/uL (1.0-4.3); LYMPH % 2.3 % (20.0-40.0); MEAN CELL VOLUME 80.7 fL (80.0-94.0); MEAN CORPUSCULAR HEMOGLOBIN 25.9 pg (27.0-31.0); MEAN CORPUSCULAR HGB CONC 32.1 g/dL (33.0-37.0); MEAN PLATELET VOLUME 8.6 fL (7.2-11.7); MONO # 0.8 K/uL (0.0-0.8); MONO % 6.2 % (0.0-10.0); PLATELET COUNT 147 K/uL (130-400); RED CELL DISTRIBUTION WIDTH 18.8 % (11.5-14.5); WHITE BLOOD COUNT 13.6 K/uL (4.8-10.8)
[2017-01-31 20:42] LABS: CHLORIDE 91 mmol/L (98-107); SODIUM 126 mmol/L (132-148)
[2017-01-31 20:43] LABS: POTASSIUM 4.3 mmol/L (3.6-5.2)
[2017-01-31 20:45] LABS: ALB/GLOB RATIO 1.1 (1.0-2.1); ALKALINE PHOSPHATASE 61 U/L (38-126); ALT/SGPT 64 U/L (21-72); AST/SGOT 34 U/L (17-59); BILIRUBIN,TOTAL 0.6 mg/dL (0.2-1.3); BLOOD UREA NITROGEN 31 mg/dL (9-20); CARBON DIOXIDE 25 mmol/L (22-30); GFR AFRICAN-AMERICAN > 60; INR 4.1; NEUTROPHIL 95 % (50-75); TOTAL CELLS COUNTED 100; TOTAL PROTEIN 5.2 g/dL (6.3-8.3)
[2017-01-31 20:46] LABS: CALCIUM 8.3 mg/dl (8.6-10.4); GLUCOSE,RANDOM 110 mg/dL (75-110); MAGNESIUM 1.9 mg/dL (1.6-2.3); PHOSPHOROUS 2.6 mg/dL (2.5-4.5)
--- NOTE | 2017-02-01 00:34 | CP.PCM.PN ---
Subjective - Date & Time of Evaluation Date of Evaluation: 02/01/17 Time of Evaluation: 00:40 - Subjective Subjective: PGY-1 note for medicine service Pt seen and examined at bedside. No acute events per nursing. Resting comfortably with nasal canula in place. Reports throat feels better today. Breathing is at baseline, c/o orthopnea and SOB with ambulation, will require home oxygen (however patient is homeless). Denies any fevers, chills, chest pain , palpitations, abdominal pain, nausea, vomiting, or any additional complaints. Objective - Vital Signs/Intake and Output Vital Signs (last 24 hours): Temp Pulse Resp BP Pulse Ox 97.8 F 85 20 118/82 100 01/31/17 16:13 01/31/17 16:13 01/31/17 16:13 01/31/17 16:13 01/31/17 16:13 - Medications Medications: Current Medications Albuterol/Ipratropium (Duoneb 3 Mg/0.5 Mg (3 Ml) Ud) 3 ml INH RQ6 [facility] Last Admin: 01/31/17 19:55 Dose: 3 ml Benzocaine/Menthol (Cepacol Sore Throat) 1 sarah MT Q6H PRN PRN Reason: Sore Throat Last Admin: 01/31/17 00:53 Dose: 1 sarah Budesonide (Pulmicort Respules) 0.5 mg INH RQ12 [facility] Last Admin: 01/31/17 19:55 Dose: 0.5 mg Digoxin (Lanoxin) 0.125 mg PO DAILY@1800 [facility] Last Admin: 01/31/17 17:30 Dose: 0.125 mg Furosemide (Lasix) 40 mg PO DAILY [facility] Last Admin: 01/30/17 09:03 Dose: 40 mg Guaifenesin (Mucinex La) 600 mg PO BID [facility] Last Admin: 01/31/17 18:00 Dose: 600 mg Prednisone (Prednisone Tab) 40 mg PO DAILY [facility] Last Admin: 01/30/17 09:03 Dose: 40 mg Rosuvastatin Calcium (Crestor) 10 mg PO HS [facility] Last Admin: 01/18/17 22:03 Dose: 10 mg Spironolactone (Aldactone) 25 mg PO DAILY [facility] Last Admin: 01/30/17 09:03 Dose: 25 mg Tiotropium [place] (Spiriva) 18 mcg INH RQ24 [facility] Last Admin: 01/31/17 09:12 Dose: 18 mcg - Labs Labs: 01/31/17 20:26 01/31/17 20:26 PT 47.8 SECONDS (9.7-12.2) H* D 01/31/17 20:26 INR 4.1 01/31/17 20:26 APTT 38 SECONDS (21-34) H D 01/31/17 20:26 - Additional Findings Additional findings: - Constitutional Appears: No Acute Distress - Head Exam Head Exam: ATRAUMATIC, NORMOCEPHALIC - Eye Exam Eye Exam: EOMI Pupil Exam: NORMAL ACCOMODATION - ENT Exam ENT Exam: Mucous Membranes Moist, Normal Exam -L throat tender to palpation (mildly improved) - Neck Exam Neck Exam: Full ROM, Normal Inspection - Respiratory Exam Respiratory Exam: Decreased Breath Sounds, Wheezes (expiratory, diffuse), Rhonchi (scattered), Respiratory Distress (with orthopnea). -desaturates to 82% while walking, 88% with NC 2L - Cardiovascular Exam Cardiovascular Exam: +S1, +S2, Murmur - GI/Abdominal Exam GI & Abdominal Exam: Soft, Tenderness Additional comments: -Tender to palpation at R sternal border, 2nd rib. Protrusion noted (chronic) -Waxing/waning tenderness to palpation over site of pacemaker (chronic) - Extremities Exam Extremities Exam: Joint Swelling (improved from previous) - Neurological Exam Neurological Exam: Alert, Awake - Psychiatric Exam Psychiatric exam: Normal Affect, Normal Mood - Skin Skin Exam: Intact, Warm Assessment and Plan - Assessment and Plan (Free Text) Assessment: -f/u PT eval 01/30/17. Required prior to discharge. -Discharge planning to [facility] once INR in 2.5-3.5 range and SOB is better controlled. Patient has [employer] insurance, case is working on rehab authorization. -01/22: Dr. Schmidt recommends pulmonary rehab, case is looking into facilities - none present locally COPD (chronic obstructive pulmonary disease) 02/01: Prednisone 40mg PO daily; Taper on discharge. Will require home oxygen. 01/29: Stop Solumedrol IVP; Start Prednisone 40mg PO daily; Taper on discharge. Will require home oxygen. -01/28: Solumedrol reduced to 40mg IVP Q12H. Prior to discharge, change Solumedrol -> Prednisone -01/19-01/28: Continue BIPAP, patient more compliant (sometimes refuses despite being SOB). -01/16: RAPID called due to SOB. BP 80/50's. Bolused 500cc NS. Ordered BIPAP and ABG, however patient refused. Placed back on NC 3L. -01/14-01/15: Patient complaining of SOB with exertion and orthopnea. Maintain Head of bed elevated 30 degrees. -01/13: PT session: 98% O2 at 2L at rest, 96% room air at rest sitting, 82% room air during ambulation, 88% at 2 liter ambulation. -01/12: Walked 20 steps today down brnuo, and patient became dizzy, SOB, and almost collapsed. - Consulted Pulmonology, Dr. Cobb, f/u recs -planning for home O2 - Aware of HR in 140's and SOB after eating and low levels of exertion. -f/u ABG (not collected) -LDH 654H -HIV - negative -persistent shortness of breath - Patient with long history of smoking most likely has underlying COPD. Nebulizer treatment. Inhaled steroids. Spiriva. PFT as out pt Systolic dysfunction with acute on chronic heart failure 02/01: pt at baseline - EF 10-15%, mechanical MV- no regurg, tricuspid regurg. see full report -Chest CT 01/22 - Cardiomegaly. Cardiac valve prosthesis. Left-sided AICD. Dense coronary artery calcifications. -Small consolidation (favored to reflect atelectasis rather than pneumonia) at the left lung base. -Bibasilar atelectasis. Small airways disease. Mild ground-glass and fine nodular opacities within the right upper lobe, possibly infectious or inflammatory. -7 mm left upper lobe pulmonary nodule. Guidelines by the Fleischner society (radiology 2005; 237:390 5-400) suggests that in patients with low risk for lung cancer, with nodules less than or equal to 8 mm in diameter should have follow-up in approximately 6-12 months. In patients with high-risk, including smokers, follow-up is recommended 3-6 months. Patient with a known malignancy for risk for metastases should receive 3 month follow-up. -Hepatic capsular calcification. -Numerous low-density lesions throughout the liver, possibly cysts. Decompressed gallbladder limits evaluation. Bilateral hypodense renal lesions. Right adrenal gland hypertrophy. 12 mm left adrenal gland nodule measures approximately 9 Hounsfield units, likely adenoma. -Consulted Cardiology, Dr. Arguelles - f/u recs -01/22: Lasix 40mg IVP daily, Spironolactone 25mg daily. CXR - no interval pathology change. -01/19: HOLD LASIX FOR 1 TO 2 DAYS AND CONT MUCINEX. PT PRERENAL AND APPEARS DRY. ON BOTH LASIX AND SPIRONOLACTONE. -SOB APPEARS TO BE SECONDARY TO PULM ETIOLOGY. IMPROVES WITH NEBS. PT WITH RHONCHI B/L. MAY BENEFIT FROM PULM TOILET. -will attempt to obtain company of [facility] for interrogation. -likely deconditioned. will benefit from rehab -01/16: RAPID called due to SOB. BP 80/50's. Bolused 500cc NS. Ordered BIPAP and ABG, however patient refused. Placed back on NC 3L. ProBNP 4070H (less than # on admission) and KACY negative. -01/16: Decrease to Lasix 40mg PO daily (was BID). Admit to telemetry, BNP 4560 on admission Digoxin 0.125mg Lisinopril 10mg daily Aldactone 25mg PO Daily patient with AICD, will check echo to determine EF CXR 01/03: mild cardiomegaly, mild pulmonary venous congestion. s/p sternotomy, aortic valve replacement, AICD H/O mitral valve replacement with mechanical valve Cardiac valve replacement 6-7yrs ago Consulted Cardiology, Dr. Arguelles - f/u recs -echocardiogram reviewed. valve leaflets are opening and functional. There is no signficant gradient across the valve. -recommend INR 2.5 to 3.5. STOP Lovenox 3/5 STOP Heparin Drip - cardiac protocol, with bolus (because patient is refusing blood draws) 01/07: INR 1.3 01/08: INR refused, Coumadin 10mg 01/09: INR 1.5, Coumadin 10mg 01/10: INR 2.0, Coumadin 10mg 01/11: INR 2.4, Coumadin 7.5mg; patient received one more dose of Lovenox 80mg SC today, now discontinued as bridge complete. 01/12: INR 2.5, Coumadin 7.5mg 01/13: INR 3.1, Coumadin 5mg 01/14: INR 3.7, Coumadin 5mg (stopped by pharmacy) 01/15: INR 2.8, Coumadin 5mg 01/16: INR 2.6, Coumadin 4mg 01/17: INR 2.7, Coumadin 4 mg 01/18: INR 2.3 Coumadin 4mg 01/19: INR 2.1, Coumadin 6mg 01/20: INR 2.6, Coumadin 5mg 01/21: INR 2.6, Coumadin 5mg 01/22: INR 2.5, Coumadin 6mg 01/23: INR 2.9, Coumadin 6mg, 01/24: INR 3.6, Coumadin 6mg, f/u INR 01/25: HELD Coumadin, Pt. denied blood work today 01/26: HELD Coumadin, Pt. denied blood work today 01/27: INR 1.3, Coumadin 7mg, f/u 01/28: INR 1.5, Coumadin 7mg, f/u INR 01/29: INR 2.4, Coumadin 7mg, f/u INR 01/30: INR 3.3, Coumadin 6mg, f/u INR 01/31: INR 4.1 Hold Coumadin, f/u INR 02/01: f/u INR and administer Coumadin Chronic atrial fibrillation Consulted Cardiology, Dr. Arguelles - f/u recs -Rate controlled -echocardiogram reviewed. valve leaflets are opening and functional. There is no signficant gradient across the valve. -recommend INR 2.5 to 3.5. -See PT/INR trends above Coumadin as above STOP Lovenox 01/11 Cough, acute -Mucinex 600mg PO BID -01/28: cough intermittent -01/24 does not complain of cough -01/19-01/22: Persists. Non-productive. Continue Mucinex. -01/15: patient developed productive cough with yellow sputum today. CAD (coronary artery disease) Consulted Cardiology, Dr. Arguelles - f/u recs -Aware of HR in 140's and SOB after eating and low levels of exertion. -unknown graft status. no evidence of ischemia at present -No current angina History of [place] (myocardial infarction) HOLD Crestor 10mg PO HS (last dose 01/18- due to elevated LFTs) ROMIs negative x3 EKG paced Denies chest pain Transaminitis, acute 01/31: AST/ALT normalized; consider resuming crestor. 01/30 patient refusing labs. will re-attempt 01/28-01/29: Improving. hold crestor (since 01/18) 01/27: AST 37 / ALT 124 - continue to hold crestor. 01/25-01/26: Patient refused blood work 01/24: 51/164 AST / ALT down trending 01/22-01/23: AST / ALT down trending - continue to hold Crestor 01/21: AST 57 / ALT 188, decreasing. HOLD Crestor 10mg PO HS (last dose 01/18- due to elevated LFTs) 01/20: AST 75 / ALT 205 01/19: AST 70 / ALT 201 - increasing -> hold crestor for 2 nights 01/19, 01/20 01/16: AST 90 / ALT 164 - increasing -> hold Crestor tonight. - AST 77 / ALT 98 -> previously normal. - Continue to monitor Electrolyte Imbalance 01/30 patient refusing labs, will re-attempt 01/21-01/29: Hyponatremia, stable Hyperkalemia - resolved Hypokalemia, Tachycardia HR grossly WNL, continue to monitor 01/20-01/23: HR WNL 01/13: Patient becomes SOB very easily, desaturating to 82% while ambulating. Anytime he eats or gets up, HR climbs into 140's Continue Digoxin 0.125mg EKG in ER: sinus tachycardia at 100, paced, incomplete RBBB Discontinued cardizem drip of 5mg/h started in the ER Lower extremity edema LE Duplex - negative. see full report. Prophylactic measure Coumadin as above. protonix 40mg daily SCD contraindicated due to LE edema D/C when bed available
[2017-02-01] MEDS: Benzocaine/Menthol (Cepacol) Lozenge MT PRN ×3 (00:48→21:10)
[2017-02-01] MEDS: Albuterol-Ipratrop 3 mg / 0.5 (3 ml) UD INH SCH ×4 (01:58→19:23)
[2017-02-01] MEDS: Budesonide 0.5 mg/2 ml Inhal Susp UD INH SCH ×2 (08:25→19:23)
[2017-02-01] MEDS: Tiotropium 18 mcg Cap For Inhalation INH SCH (08:25)
[2017-02-01] MEDS: guaiFENesin 600 mg ER Tab PO SCH ×2 (11:23→17:23)
[2017-02-01] MEDS ORDERED: Oxycodone/Acetaminophen 5/325 mg Tab PO ONE (16:11)
[2017-02-01] MEDS: Digoxin 125 mcg (0.125 mg) Tab PO SCH (17:23)
[2017-02-01 17:28] LABS: BASO % 0.1 % (0.0-2.0); EOS % 0.2 % (0.0-4.0); HEMATOCRIT 38.8 % (35.0-51.0); LYMPH # 0.2 K/uL (1.0-4.3); LYMPH % 1.5 % (20.0-40.0); MEAN CELL VOLUME 81.4 fL (80.0-94.0); MEAN CORPUSCULAR HEMOGLOBIN 25.5 pg (27.0-31.0); MEAN CORPUSCULAR HGB CONC 31.4 g/dL (33.0-37.0); MEAN PLATELET VOLUME 7.3 fL (7.2-11.7); MONO # 0.7 K/uL (0.0-0.8); MONO % 5.7 % (0.0-10.0); PLATELET COUNT 121 K/uL (130-400); RED CELL DISTRIBUTION WIDTH 18.5 % (11.5-14.5); WHITE BLOOD COUNT 11.6 K/uL (4.8-10.8)
[2017-02-01 17:29] LABS: CHLORIDE 91 mmol/L (98-107)
[2017-02-01 17:30] LABS: SODIUM 127 mmol/L (132-148)
[2017-02-01 17:32] LABS: ALB/GLOB RATIO 1.2 (1.0-2.1); ALKALINE PHOSPHATASE 61 U/L (38-126); ALT/SGPT 60 U/L (21-72); AST/SGOT 34 U/L (17-59); BILIRUBIN,TOTAL 0.8 mg/dL (0.2-1.3); BLOOD UREA NITROGEN 29 mg/dL (9-20); CARBON DIOXIDE 30 mmol/L (22-30); GFR AFRICAN-AMERICAN > 60; GLUCOSE,RANDOM 130 mg/dL (75-110); TOTAL PROTEIN 5.4 g/dL (6.3-8.3)
[2017-02-01 17:33] LABS: CALCIUM 8.6 mg/dl (8.6-10.4); INR 2.8; PHOSPHOROUS 2.6 mg/dL (2.5-4.5)
[2017-02-01 18:11] LABS: NEUTROPHIL 96 % (50-75); TOTAL CELLS COUNTED 100
[2017-02-02] MEDS: Benzocaine/Menthol (Cepacol) Lozenge MT PRN ×2 (03:51→19:18)
[2017-02-02] MEDS: Albuterol-Ipratrop 3 mg / 0.5 (3 ml) UD INH SCH ×3 (07:36→20:28)
[2017-02-02] MEDS: Tiotropium 18 mcg Cap For Inhalation INH SCH (07:36)
[2017-02-02] MEDS: Budesonide 0.5 mg/2 ml Inhal Susp UD INH SCH ×2 (07:36→20:28)
[2017-02-02] MEDS: guaiFENesin 600 mg ER Tab PO SCH ×2 (09:38→17:46)
--- NOTE | 2017-02-02 11:06 | CP.PCM.PN ---
<Nona Castilloew - Last Filed: 02/02/17 10:58> Subjective - Date & Time of Evaluation Date of Evaluation: 02/02/17 Time of Evaluation: 10:59 - Subjective Subjective: PGY-[address] Otoole service Pt seen and examined at bedside. No acute events per nursing. Observed sitting up in bed. Continues to complain of some throat pain. Breathing is at baseline, c/o orthopnea and SOB with ambulation. Denies any fevers, chills, chest pain, palpitations, abdominal pain, nausea, vomiting, or any additional complaints. Objective - Vital Signs/Intake and Output Vital Signs (last 24 hours): Temp Pulse Resp BP Pulse Ox 97.8 F 79 20 103/60 99 02/02/17 07:25 02/02/17 07:25 02/02/17 07:25 02/02/17 09:38 02/02/17 07:25 Intake and Output: 02/02/17 02/02/17 06:59 18:59 Intake Total 360 Output Total 975 Balance -615 - Medications Medications: Current Medications Albuterol/Ipratropium (Duoneb 3 Mg/0.5 Mg (3 Ml) Ud) 3 ml INH RQ6 [facility] Last Admin: 02/02/17 07:36 Dose: Not Given Benzocaine/Menthol (Cepacol Sore Throat) 1 sarah MT Q6H PRN PRN Reason: Sore Throat Last Admin: 02/02/17 03:51 Dose: 1 sarah Budesonide (Pulmicort Respules) 0.5 mg INH RQ12 [facility] Last Admin: 02/02/17 07:36 Dose: Not Given Digoxin (Lanoxin) 0.125 mg PO DAILY@1800 [facility] Last Admin: 02/01/17 17:23 Dose: 0.125 mg Famotidine (Pepcid) 20 mg IVP DAILY [facility] Last Admin: 02/02/17 09:38 Dose: 20 mg Furosemide (Lasix) 40 mg PO DAILY [facility] Last Admin: 02/02/17 09:38 Dose: 40 mg Guaifenesin (Mucinex La) 600 mg PO BID [facility] Last Admin: 02/02/17 09:38 Dose: 600 mg Prednisone (Prednisone Tab) 40 mg PO DAILY [facility] Last Admin: 02/02/17 09:37 Dose: 40 mg Rosuvastatin Calcium (Crestor) 10 mg PO HS [facility] Last Admin: 01/18/17 22:03 Dose: 10 mg Spironolactone (Aldactone) 25 mg PO DAILY [facility] Last Admin: 02/02/17 09:38 Dose: 25 mg Tiotropium [place] (Spiriva) 18 mcg INH RQ24 [facility] Last Admin: 02/02/17 07:36 Dose: Not Given - Labs Labs: 02/01/17 17:07 02/01/17 17:07 PT 31.8 SECONDS (9.7-12.2) H* D 02/01/17 17:07 INR 2.8 D 02/01/17 17:07 APTT 33 SECONDS (21-34) D 02/01/17 17:07 - Constitutional Appears: Chronically Ill - Head Exam Head Exam: ATRAUMATIC, NORMOCEPHALIC - Eye Exam Eye Exam: Normal appearance Pupil Exam: PERRL - ENT Exam ENT Exam: Mucous Membranes Moist - Respiratory Exam Respiratory Exam: Rhonchi, Wheezes, NORMAL BREATHING PATTERN Additional comments: desaturates to 82% while walking, 88% with NC 2L - Cardiovascular Exam Cardiovascular Exam: +S1, +S2 - GI/Abdominal Exam GI & Abdominal Exam: Soft, Normal Bowel Sounds - Neurological Exam Neurological Exam: Alert, Awake - Skin Skin Exam: Dry, Warm Assessment and Plan - Assessment and Plan (Free Text) Assessment: -Discharge planning to [facility] once INR in 2.5-3.5 range and SOB is better controlled. Patient has [place] insurance, case is working on rehab authorization - pending COPD (chronic obstructive pulmonary disease) 02/01: Prednisone 40mg PO daily; Taper on discharge. Will require home oxygen. 01/29: Stop Solumedrol IVP; Start Prednisone 40mg PO daily; Taper on discharge. Will require home oxygen. -01/28: Solumedrol reduced to 40mg IVP Q12H. Prior to discharge, change Solumedrol -> Prednisone -01/19-01/28: Continue BIPAP, patient more compliant (sometimes refuses despite being SOB). -01/16: RAPID called due to SOB. BP 80/50's. Bolused 500cc NS. Ordered BIPAP and ABG, however patient refused. Placed back on NC 3L. -01/14-01/15: Patient complaining of SOB with exertion and orthopnea. Maintain Head of bed elevated 30 degrees. -01/13: PT session: 98% O2 at 2L at rest, 96% room air at rest sitting, 82% room air during ambulation, 88% at 2 liter ambulation. -01/12: Walked 20 steps today down [address], and patient became dizzy, SOB, and almost collapsed. - Consulted Pulmonology, Dr. Cobb, f/u recs -planning for home O2 - Aware of HR in 140's and SOB after eating and low levels of exertion. -f/u ABG (not collected) -LDH 654H -HIV - negative -persistent shortness of breath - Patient with long history of smoking most likely has underlying COPD. Nebulizer treatment. Inhaled steroids. Spiriva. PFT as out pt Systolic dysfunction with acute on chronic heart failure 02/01: pt at baseline - EF 10-15%, mechanical MV- no regurg, tricuspid regurg. see full report -Chest CT 01/22 - Cardiomegaly. Cardiac valve prosthesis. Left-sided AICD. Dense coronary artery calcifications. -Small consolidation (favored to reflect atelectasis rather than pneumonia) at the left lung base. -Bibasilar atelectasis. Small airways disease. Mild ground-glass and fine nodular opacities within the right upper lobe, possibly infectious or inflammatory. -7 mm left upper lobe pulmonary nodule. Guidelines by the Fleischner society (radiology 2005; 237:390 5-400) suggests that in patients with low risk for lung cancer, with nodules less than or equal to 8 mm in diameter should have follow-up in approximately 6-12 months. In patients with high-risk, including smokers, follow-up is recommended 3-6 months. Patient with a known malignancy for risk for metastases should receive 3 month follow-up. -Hepatic capsular calcification. -Numerous low-density lesions throughout the liver, possibly cysts. Decompressed gallbladder limits evaluation. Bilateral hypodense renal lesions. Right adrenal gland hypertrophy. 12 mm left adrenal gland nodule measures approximately 9 Hounsfield units, likely adenoma. -Consulted Cardiology, Dr. Arguelles - f/u recs -01/22: Lasix 40mg IVP daily, Spironolactone 25mg daily. CXR - no interval pathology change. -01/19: HOLD LASIX FOR 1 TO 2 DAYS AND CONT MUCINEX. PT PRERENAL AND APPEARS DRY. ON BOTH LASIX AND SPIRONOLACTONE. -SOB APPEARS TO BE SECONDARY TO PULM ETIOLOGY. IMPROVES WITH NEBS. PT WITH RHONCHI B/L. MAY BENEFIT FROM PULM TOILET. -will attempt to obtain company of AICD for interrogation. -likely deconditioned. will benefit from rehab -01/16: RAPID called due to SOB. BP 80/50's. Bolused 500cc NS. Ordered BIPAP and ABG, however patient refused. Placed back on NC 3L. ProBNP 4070H (less than # on admission) and KACY negative. -01/16: Decrease to Lasix 40mg PO daily (was BID). Admit to telemetry, BNP 4560 on admission Digoxin 0.125mg Lisinopril 10mg daily Aldactone 25mg PO Daily patient with AICD, will check echo to determine EF CXR 01/03: mild cardiomegaly, mild pulmonary venous congestion. s/p sternotomy, aortic valve replacement, AICD H/O mitral valve replacement with mechanical valve Cardiac valve replacement 6-7yrs ago Consulted Cardiology, Dr. Arguelles - f/u recs -echocardiogram reviewed. valve leaflets are opening and functional. There is no signficant gradient across the valve. -recommend INR 2.5 to 3.5. STOP Lovenox 01/11 STOP Heparin Drip - cardiac protocol, with bolus (because patient is refusing blood draws) 01/07: INR 1.3 01/08: INR refused, Coumadin 10mg 01/09: INR 1.5, Coumadin 10mg 01/10: INR 2.0, Coumadin 10mg 01/11: INR 2.4, Coumadin 7.5mg; patient received one more dose of Lovenox 80mg SC today, now discontinued as bridge complete. 01/12: INR 2.5, Coumadin 7.5mg 01/13: INR 3.1, Coumadin 5mg 01/14: INR 3.7, Coumadin 5mg (stopped by pharmacy) 01/15: INR 2.8, Coumadin 5mg 01/16: INR 2.6, Coumadin 4mg 01/17: INR 2.7, Coumadin 4 mg 01/18: INR 2.3 Coumadin 4mg 01/19: INR 2.1, Coumadin 6mg 01/20: INR 2.6, Coumadin 5mg 01/21: INR 2.6, Coumadin 5mg 01/22: INR 2.5, Coumadin 6mg 01/23: INR 2.9, Coumadin 6mg, 01/24: INR 3.6, Coumadin 6mg, f/u INR 01/25: HELD Coumadin, Pt. denied blood work today 01/26: HELD Coumadin, Pt. denied blood work today 01/27: INR 1.3, Coumadin 7mg, f/u 01/28: INR 1.5, Coumadin 7mg, f/u INR 01/29: INR 2.4, Coumadin 7mg, f/u INR 01/30: INR 3.3, Coumadin 6mg, f/u INR 01/31: INR 4.1 Hold Coumadin, f/u INR 02/01: INR 2.8, Coumadin 5mg, f/u INR 02/02: INR pending Chronic atrial fibrillation Consulted Cardiology, Dr. Arguelles - f/u recs -Rate controlled -echocardiogram reviewed. valve leaflets are opening and functional. There is no signficant gradient across the valve. -recommend INR 2.5 to 3.5. -See PT/INR trends above Coumadin as above STOP Lovenox 01/11 Cough, acute -Mucinex 600mg PO BID -01/28: cough intermittent -01/24 does not complain of cough -01/19-01/22: Persists. Non-productive. Continue Mucinex. -01/15: patient developed productive cough with yellow sputum today. CAD (coronary artery disease) Consulted Cardiology, Dr. Arguelles - f/u recs -Aware of HR in 140's and SOB after eating and low levels of exertion. -unknown graft status. no evidence of ischemia at present -No current angina History of ID (myocardial infarction) HOLD Crestor 10mg PO HS (last dose 01/18- due to elevated LFTs) ROMIs negative x3 EKG paced Denies chest pain Transaminitis, acute 01/31: AST/ALT normalized; consider resuming crestor. 01/30 patient refusing labs. will re-attempt 01/28-01/29: Improving. hold crestor (since 01/18) 01/27: AST 37 / ALT 124 - continue to hold crestor. 01/25-01/26: Patient refused blood work 01/24: 51/164 AST / ALT down trending 01/22-01/23: AST / ALT down trending - continue to hold Crestor 01/21: AST 57 / ALT 188, decreasing. HOLD Crestor 10mg PO HS (last dose 01/18- due to elevated LFTs) 01/20: AST 75 / ALT 205 01/19: AST 70 / ALT 201 - increasing -> hold crestor for 2 nights 01/19, 01/20 01/16: AST 90 / ALT 164 - increasing -> hold Crestor tonight. - AST 77 / ALT 98 -> previously normal. - Continue to monitor Electrolyte Imbalance 01/30 patient refusing labs, will re-attempt 01/21-01/29: Hyponatremia, stable Hyperkalemia - resolved Hypokalemia, Tachycardia HR grossly WNL, continue to monitor 01/20-01/23: HR WNL 01/13: Patient becomes SOB very easily, desaturating to 82% while ambulating. Anytime he eats or gets up, HR climbs into 140's Continue Digoxin 0.125mg EKG in ER: sinus tachycardia at 100, paced, incomplete RBBB Discontinued cardizem drip of 5mg/h started in the ER Lower extremity edema LE Duplex - negative. see full report. Prophylactic measure Coumadin as above. protonix 40mg daily SCD contraindicated due to LE edema D/C when bed available <Johnnie Otoole Jr. - Last Filed: 02/04/17 16:19> Objective - Vital Signs/Intake and Output Vital Signs (last 24 hours): Temp Pulse Resp BP Pulse Ox 97.8 F 94 H 20 107/73 98 02/04/17 15:58 02/04/17 15:58 02/04/17 15:58 02/04/17 15:58 02/04/17 15:58 Intake and Output: 02/04/17 02/04/17 06:59 18:59 Intake Total 240 Output Total 800 Balance -560 - Medications Medications: Current Medications Albuterol/Ipratropium (Duoneb 3 Mg/0.5 Mg (3 Ml) Ud) 3 ml INH RQ6 [facility] Last Admin: 02/04/17 13:27 Dose: 3 ml Benzocaine/Menthol (Cepacol Sore Throat) 1 sarah MT Q6H PRN PRN Reason: Sore Throat Last Admin: 02/04/17 10:01 Dose: 1 sarah Budesonide (Pulmicort Respules) 0.5 mg INH RQ12 [facility] Last Admin: 02/04/17 07:25 Dose: Not Given Digoxin (Lanoxin) 0.125 mg PO DAILY@1800 [facility] Last Admin: 02/03/17 17:22 Dose: 0.125 mg Famotidine (Pepcid) 20 mg IVP DAILY [facility] Last Admin: 02/04/17 09:57 Dose: 20 mg Furosemide (Lasix) 40 mg PO DAILY [facility] Last Admin: 02/04/17 09:56 Dose: 40 mg Guaifenesin (Mucinex La) 600 mg PO BID [facility] Last Admin: 02/04/17 09:56 Dose: 600 mg Prednisone (Prednisone Tab) 40 mg PO DAILY [facility] Last Admin: 02/04/17 09:57 Dose: 40 mg Rosuvastatin Calcium (Crestor) 10 mg PO HS [facility] Last Admin: 02/03/17 21:38 Dose: 10 mg Spironolactone (Aldactone) 25 mg PO DAILY [facility] Last Admin: 02/04/17 09:56 Dose: 25 mg Tiotropium [place] (Spiriva) 18 mcg INH RQ24 [facility] Last Admin: 02/04/17 07:25 Dose: Not Given Warfarin Sodium (Coumadin) 5 mg PO 1800 [facility] Stop: 02/04/17 18:01 - Labs Labs: 02/03/17 13:50 02/03/17 13:50 PT 27.8 SECONDS (9.7-12.2) H 02/03/17 13:50 INR 2.4 02/03/17 13:50 APTT 37 SECONDS (21-34) H 02/03/17 13:50 Attending/Attestation - Attestation I have personally seen and examined this patient.: Yes I have fully participated in the care of the patient.: Yes I have reviewed all pertinent clinical information, including history, physical exam and plan: Yes Notes (Text): 02/04/17 16:19 Patient seen and examined with resident. Reviewed resident note in plan of care. Agree with findings and plan of care discussed
--- NOTE | 2017-02-02 11:36 | CP.PCM.PN ---
Subjective - Date & Time of Evaluation Date of Evaluation: 02/02/17 Time of Evaluation: 10:00 - Subjective Subjective: Pt seen and examined at beside. Pt appeared to be comfortable, resting in bed, not using his nasal cannula at time of interview. Pt continues to complain of SOB sporadically throughout the day, and orthopnea. Pt also states that he uses his nasal cannula whenever he does feel SOB, and states that this helps. However, pt does admit that his condition has improved in that he is now able to walk to the bathroom without feeling short of breath. Pt does admit to minimal cough at times, but denies phlegm, subjective fever, chest pain, and chest congestion. Objective - Vital Signs/Intake and Output Vital Signs (last 24 hours): Temp Pulse Resp BP Pulse Ox 97.8 F 79 20 103/60 99 02/02/17 07:25 02/02/17 07:25 02/02/17 07:25 02/02/17 09:38 02/02/17 07:25 Intake and Output: 02/02/17 02/02/17 06:59 18:59 Intake Total 360 Output Total 975 Balance -615 - Medications Medications: Current Medications Albuterol/Ipratropium (Duoneb 3 Mg/0.5 Mg (3 Ml) Ud) 3 ml INH RQ6 [facility] Last Admin: 02/02/17 07:36 Dose: Not Given Benzocaine/Menthol (Cepacol Sore Throat) 1 sarah MT Q6H PRN PRN Reason: Sore Throat Last Admin: 02/02/17 03:51 Dose: 1 sarah Budesonide (Pulmicort Respules) 0.5 mg INH RQ12 [facility] Last Admin: 02/02/17 07:36 Dose: Not Given Digoxin (Lanoxin) 0.125 mg PO DAILY@1800 [facility] Last Admin: 02/01/17 17:23 Dose: 0.125 mg Famotidine (Pepcid) 20 mg IVP DAILY [facility] Last Admin: 02/02/17 09:38 Dose: 20 mg Furosemide (Lasix) 40 mg PO DAILY [facility] Last Admin: 02/02/17 09:38 Dose: 40 mg Guaifenesin (Mucinex La) 600 mg PO BID [facility] Last Admin: 02/02/17 09:38 Dose: 600 mg Prednisone (Prednisone Tab) 40 mg PO DAILY [facility] Last Admin: 03/27/17 09:37 Dose: 40 mg Rosuvastatin Calcium (Crestor) 10 mg PO HS [facility] Last Admin: 01/18/17 22:03 Dose: 10 mg Spironolactone (Aldactone) 25 mg PO DAILY [facility] Last Admin: 02/02/17 09:38 Dose: 25 mg Tiotropium [place] (Spiriva) 18 mcg INH RQ24 [facility] Last Admin: 02/02/17 07:36 Dose: Not Given - Labs Labs: 02/01/17 17:07 02/01/17 17:07 PT 31.8 SECONDS (9.7-12.2) H* D 02/01/17 17:07 INR 2.8 D 02/01/17 17:07 APTT 33 SECONDS (21-34) D 02/01/17 17:07 - Constitutional Appears: Non-toxic, No Acute Distress - Head Exam Head Exam: ATRAUMATIC, NORMOCEPHALIC - Eye Exam Eye Exam: Normal appearance Pupil Exam: NORMAL ACCOMODATION - ENT Exam ENT Exam: Mucous Membranes Moist - Respiratory Exam Respiratory Exam: Rhonchi (Bilateral ), NORMAL BREATHING PATTERN. absent: Accessory Muscle Use, Rales, Respiratory Distress - Cardiovascular Exam Cardiovascular Exam: REGULAR RHYTHM, +S1, +S2 - Neurological Exam Neurological Exam: Alert, Awake, Oriented x3 - Skin Skin Exam: Dry, Intact, Normal Color, Warm Assessment and Plan (1) COPD (chronic obstructive pulmonary disease) Assessment & Plan: Pt improving. Pending placement. Pt will need home oxygen upon discharge. Continue nebulizer, oxygen, and BiPAP as needed. Continue to monitor for increased SOB, productive cough, fever, and chest pain. Patient will be switched from Solu-Medrol to prednisone prior to discharge. Status: Acute (2) Acute exacerbation of CHF (congestive heart failure) Status: Acute (3) Chronic atrial fibrillation Status: Chronic
[2017-02-02] MEDS: Digoxin 125 mcg (0.125 mg) Tab PO SCH (17:46)
[2017-02-03] MEDS: Albuterol-Ipratrop 3 mg / 0.5 (3 ml) UD INH SCH ×4 (01:09→19:28)
[2017-02-03] MEDS: Budesonide 0.5 mg/2 ml Inhal Susp UD INH SCH ×2 (07:38→19:28)
[2017-02-03] MEDS: Tiotropium 18 mcg Cap For Inhalation INH SCH (07:39)
--- NOTE | 2017-02-03 08:09 | CARD ---
APPROVED REPORT EKG Measurement Heart [id number] <Conclusion> Electronic ventricular pacemaker
[2017-02-03] MEDS: guaiFENesin 600 mg ER Tab PO SCH ×2 (11:01→17:22)
--- NOTE | 2017-02-03 11:25 | CP.PCM.PN ---
Subjective - Date & Time of Evaluation Date of Evaluation: 02/03/17 Time of Evaluation: 10:00 - Subjective Subjective: Pt seen and examined at bedside. Pt resting comfortably in bed, lying flat. Pt not using nasal cannula at this time. Pt states that although present at times, his SOB continues to improve as he continues to walk to the bathroom without shortness of breath, and is also able to lie flat. Pt does continue to use his nasal cannula when he feels SOB, and states that it helps. Pt denies coughing, fever, congestion, and CP today. Pt also admits to odynophagia. Pt localizes his pain to the left submandibular region and describes it as a sharp pain. Pt continues that the pain is only present upon swallowing, denies any radiation of the pain, and denies any pain on the right submandibular region. Medicine team was made aware of pt's concerns. Objective - Vital Signs/Intake and Output Vital Signs (last 24 hours): Temp Pulse Resp BP Pulse Ox 97.2 F L 92 H 20 107/64 100 02/03/17 08:29 02/03/17 08:29 02/03/17 08:29 02/03/17 08:29 02/03/17 08:29 Intake and Output: 02/03/17 02/03/17 06:59 18:59 Intake Total 860 Output Total 2500 Balance -1640 - Medications Medications: Current Medications Albuterol/Ipratropium (Duoneb 3 Mg/0.5 Mg (3 Ml) Ud) 3 ml INH RQ6 [facility] Last Admin: 02/03/17 07:38 Dose: 3 ml Benzocaine/Menthol (Cepacol Sore Throat) 1 sarah MT Q6H PRN PRN Reason: Sore Throat Last Admin: 02/02/17 19:18 Dose: 1 saarh Budesonide (Pulmicort Respules) 0.5 mg INH RQ12 [facility] Last Admin: 02/03/17 07:38 Dose: 0.5 mg Digoxin (Lanoxin) 0.125 mg PO DAILY@1800 [facility] Famotidine (Pepcid) 20 mg IVP DAILY [facility] Last Admin: 02/03/17 11:01 Dose: 20 mg Furosemide (Lasix) 40 mg PO DAILY [facility] Last Admin: 02/03/17 11:02 Dose: Not Given Guaifenesin (Mucinex La) 600 mg PO BID [facility] Last Admin: 02/03/17 11:01 Dose: 600 mg Prednisone (Prednisone Tab) 40 mg PO DAILY [facility] Last Admin: 02/03/17 11:01 Dose: 40 mg Rosuvastatin Calcium (Crestor) 10 mg PO HS [facility] Last Admin: 02/02/17 21:44 Dose: 10 mg Spironolactone (Aldactone) 25 mg PO DAILY [facility] Last Admin: 02/03/17 11:02 Dose: Not Given Tiotropium [place] (Spiriva) 18 mcg INH RQ24 [facility] Last Admin: 02/03/17 07:39 Dose: 18 mcg - Labs Labs: 02/01/17 17:07 02/01/17 17:07 PT 31.8 SECONDS (9.7-12.2) H* D 02/01/17 17:07 INR 2.8 D 02/01/17 17:07 APTT 33 SECONDS (21-34) D 02/01/17 17:07 - Constitutional Appears: Non-toxic, No Acute Distress - Head Exam Head Exam: ATRAUMATIC, NORMOCEPHALIC - Eye Exam Eye Exam: Normal appearance Pupil Exam: NORMAL ACCOMODATION - ENT Exam ENT Exam: Mucous Membranes Moist Additional comments: No exudates noted in throat - Neck Exam Neck Exam: Tenderness (To palpation at left submandible ) - Respiratory Exam Respiratory Exam: Rhonchi (Improving, now present in right upper lobe), Wheezes , NORMAL BREATHING PATTERN. absent: Rales, Respiratory Distress, Stridor - Cardiovascular Exam Cardiovascular Exam: REGULAR RHYTHM, +S1, +S2 - Extremities Exam Extremities Exam: absent: Pedal Edema, Tenderness - Neurological Exam Neurological Exam: Alert, Awake, Oriented x3 - Skin Skin Exam: Dry, Intact, Normal Color, Warm Assessment and Plan (1) COPD (chronic obstructive pulmonary disease) Assessment & Plan: Pt continues to improve from pulmonary stand point. Medicine team made aware of pt's odynophagia concern. Continue pt on Prednisone Continue nebulizer, oxygen, and BiPAP as needed. Continue to monitor for increased SOB, productive cough, fever, and chest pain. Pt is pending placement. Pt will need home oxygen upon discharge. Status: Acute (2) Acute exacerbation of CHF (congestive heart failure) Status: Acute (3) Chronic atrial fibrillation Status: Chronic
[2017-02-03 14:03] LABS: BASO % 0.3 % (0.0-2.0); EOS % 0.5 % (0.0-4.0); HEMATOCRIT 39.3 % (35.0-51.0); LYMPH # 0.3 K/uL (1.0-4.3); LYMPH % 3.4 % (20.0-40.0); MEAN CELL VOLUME 81.1 fL (80.0-94.0); MEAN CORPUSCULAR HEMOGLOBIN 25.8 pg (27.0-31.0); MEAN CORPUSCULAR HGB CONC 31.8 g/dL (33.0-37.0); MEAN PLATELET VOLUME 7.2 fL (7.2-11.7); MONO # 0.4 K/uL (0.0-0.8); MONO % 4.6 % (0.0-10.0); PLATELET COUNT 131 K/uL (130-400); RED CELL DISTRIBUTION WIDTH 18.9 % (11.5-14.5)
[2017-02-03 14:10] LABS: INR 2.4
[2017-02-03 14:12] LABS: CHLORIDE 98 mmol/L (98-107)
[2017-02-03 14:13] LABS: POTASSIUM 4.1 mmol/L (3.6-5.2); SODIUM 131 mmol/L (132-148)
[2017-02-03 14:15] LABS: AST/SGOT 33 U/L (17-59); BILIRUBIN,TOTAL 0.8 mg/dL (0.2-1.3); CARBON DIOXIDE 24 mmol/L (22-30); GFR AFRICAN-AMERICAN > 60; TOTAL PROTEIN 5.7 g/dL (6.3-8.3)
[2017-02-03 14:16] LABS: ALKALINE PHOSPHATASE 62 U/L (38-126); ALT/SGPT 68 U/L (21-72); BLOOD UREA NITROGEN 27 mg/dL (9-20); CALCIUM 8.9 mg/dl (8.6-10.4); GLUCOSE,RANDOM 154 mg/dL (75-110); MAGNESIUM 2.1 mg/dL (1.6-2.3); PHOSPHOROUS 2.1 mg/dL (2.5-4.5)
[2017-02-03 15:06] LABS: NEUTROPHIL 91 % (50-75); TOTAL CELLS COUNTED 100
--- NOTE | 2017-02-03 16:52 | CP.PCM.PN ---
<Wale Castillo - Last Filed: 02/03/17 16:50> Subjective - Date & Time of Evaluation Date of Evaluation: 02/03/17 Time of Evaluation: 16:50 - Subjective Subjective: PGY-[address] Otoole's service Pt seen and examined at bedside. No new complaints. Denies any fevers, chills, chest pain, sob, nausea, vomiting. Objective - Vital Signs/Intake and Output Vital Signs (last 24 hours): Temp Pulse Resp BP Pulse Ox 97.8 F 103 H 20 104/55 L 99 02/03/17 15:43 02/03/17 16:45 02/03/17 15:43 02/03/17 16:45 02/03/17 15:43 Intake and Output: 02/03/17 02/03/17 06:59 18:59 Intake Total 860 350 Output Total 2500 Balance -1640 350 - Medications Medications: Current Medications Albuterol/Ipratropium (Duoneb 3 Mg/0.5 Mg (3 Ml) Ud) 3 ml INH RQ6 [facility] Last Admin: 02/03/17 13:16 Dose: 3 ml Benzocaine/Menthol (Cepacol Sore Throat) 1 sarah MT Q6H PRN PRN Reason: Sore Throat Last Admin: 02/02/17 19:18 Dose: 1 sarah Budesonide (Pulmicort Respules) 0.5 mg INH RQ12 [facility] Last Admin: 02/03/17 07:38 Dose: 0.5 mg Digoxin (Lanoxin) 0.125 mg PO DAILY@1800 JC Famotidine (Pepcid) 20 mg IVP DAILY [facility] Last Admin: 02/03/17 11:01 Dose: 20 mg Furosemide (Lasix) 40 mg PO DAILY [facility] Last Admin: 02/03/17 11:02 Dose: Not Given Guaifenesin (Mucinex La) 600 mg PO BID [facility] Last Admin: 02/03/17 11:01 Dose: 600 mg Prednisone (Prednisone Tab) 40 mg PO DAILY [facility] Last Admin: 02/03/17 11:01 Dose: 40 mg Rosuvastatin Calcium (Crestor) 10 mg PO HS [facility] Last Admin: 02/02/17 21:44 Dose: 10 mg Spironolactone (Aldactone) 25 mg PO DAILY [facility] Last Admin: 02/03/17 11:02 Dose: Not Given Tiotropium [place] (Spiriva) 18 mcg INH RQ24 JC Last Admin: 02/03/17 07:39 Dose: 18 mcg Warfarin Sodium (Coumadin) 6 mg PO 1800 JC Stop: 02/03/17 18:01 - Labs Labs: 02/03/17 13:50 02/03/17 13:50 PT 27.8 SECONDS (9.7-12.2) H 02/03/17 13:50 INR 2.4 02/03/17 13:50 APTT 37 SECONDS (21-34) H 02/03/17 13:50 - Constitutional Appears: Non-toxic, No Acute Distress - Head Exam Head Exam: ATRAUMATIC, NORMOCEPHALIC - ENT Exam ENT Exam: Mucous Membranes Moist - Respiratory Exam Respiratory Exam: Rhonchi, NORMAL BREATHING PATTERN - Cardiovascular Exam Cardiovascular Exam: +S1, +S2 - GI/Abdominal Exam GI & Abdominal Exam: Soft, Normal Bowel Sounds - Neurological Exam Neurological Exam: Alert, Awake - Skin Skin Exam: Dry, Warm Assessment and Plan - Assessment and Plan (Free Text) Assessment: -Discharge planning to [facility] once INR in 2.5-3.5 range and SOB is better controlled. Patient has [employer] insurance, case is working on rehab authorization - pending COPD (chronic obstructive pulmonary disease) 02/01: Prednisone 40mg PO daily; Taper on discharge. Will require home oxygen. 01/29: Stop Solumedrol IVP; Start Prednisone 40mg PO daily; Taper on discharge. Will require home oxygen. -01/28: Solumedrol reduced to 40mg IVP Q12H. Prior to discharge, change Solumedrol -> Prednisone -01/19-01/28: Continue BIPAP, patient more compliant (sometimes refuses despite being SOB). -01/16: RAPID called due to SOB. BP 80/50's. Bolused 500cc NS. Ordered BIPAP and ABG, however patient refused. Placed back on NC 3L. -01/14-01/15: Patient complaining of SOB with exertion and orthopnea. Maintain Head of bed elevated 30 degrees. -01/13: PT session: 98% O2 at 2L at rest, 96% room air at rest sitting, 82% room air during ambulation, 88% at 2 liter ambulation. -01/12: Walked 20 steps today down [address], and patient became dizzy, SOB, and almost collapsed. - Consulted Pulmonology, Dr. Cobb, f/u recs -planning for home O2 - Aware of HR in 140's and SOB after eating and low levels of exertion. -f/u ABG (not collected) -LDH 654H -HIV - negative -persistent shortness of breath - Patient with long history of smoking most likely has underlying COPD. Nebulizer treatment. Inhaled steroids. Spiriva. PFT as out pt Systolic dysfunction with acute on chronic heart failure 02/01: pt at baseline - EF 10-15%, mechanical MV- no regurg, tricuspid regurg. see full report -Chest CT 01/22 - Cardiomegaly. Cardiac valve prosthesis. Left-sided AICD. Dense coronary artery calcifications. -Small consolidation (favored to reflect atelectasis rather than pneumonia) at the left lung base. -Bibasilar atelectasis. Small airways disease. Mild ground-glass and fine nodular opacities within the right upper lobe, possibly infectious or inflammatory. -7 mm left upper lobe pulmonary nodule. Guidelines by the Fleischner society (radiology 2005; 237:390 5-400) suggests that in patients with low risk for lung cancer, with nodules less than or equal to 8 mm in diameter should have follow-up in approximately 6-12 months. In patients with high-risk, including smokers, follow-up is recommended 3-6 months. Patient with a known malignancy for risk for metastases should receive 3 month follow-up. -Hepatic capsular calcification. -Numerous low-density lesions throughout the liver, possibly cysts. Decompressed gallbladder limits evaluation. Bilateral hypodense renal lesions. Right adrenal gland hypertrophy. 12 mm left adrenal gland nodule measures approximately 9 Hounsfield units, likely adenoma. -Consulted Cardiology, Dr. Arguelles - f/u recs -01/22: Lasix 40mg IVP daily, Spironolactone 25mg daily. CXR - no interval pathology change. -01/19: HOLD LASIX FOR 1 TO 2 DAYS AND CONT MUCINEX. PT PRERENAL AND APPEARS DRY. ON BOTH LASIX AND SPIRONOLACTONE. -SOB APPEARS TO BE SECONDARY TO PULM ETIOLOGY. IMPROVES WITH NEBS. PT WITH RHONCHI B/L. MAY BENEFIT FROM PULM TOILET. -will attempt to obtain company of [facility] for interrogation. -likely deconditioned. will benefit from rehab -01/16: RAPID called due to SOB. BP 80/50's. Bolused 500cc NS. Ordered BIPAP and ABG, however patient refused. Placed back on NC 3L. ProBNP 4070H (less than # on admission) and KACY negative. -01/16: Decrease to Lasix 40mg PO daily (was BID). Admit to telemetry, BNP 4560 on admission Digoxin 0.125mg Lisinopril 10mg daily Aldactone 25mg PO Daily patient with AICD, will check echo to determine EF CXR 01/03: mild cardiomegaly, mild pulmonary venous congestion. s/p sternotomy, aortic valve replacement, AICD H/O mitral valve replacement with mechanical valve Cardiac valve replacement 6-7yrs ago Consulted Cardiology, Dr. Arguelles - f/u recs -echocardiogram reviewed. valve leaflets are opening and functional. There is no signficant gradient across the valve. -recommend INR 2.5 to 3.5. STOP Lovenox 01/11 STOP Heparin Drip - cardiac protocol, with bolus (because patient is refusing blood draws) 01/07: INR 1.3 01/08: INR refused, Coumadin 10mg 01/09: INR 1.5, Coumadin 10mg 01/10: INR 2.0, Coumadin 10mg 01/11: INR 2.4, Coumadin 7.5mg; patient received one more dose of Lovenox 80mg SC today, now discontinued as bridge complete. 01/12: INR 2.5, Coumadin 7.5mg 01/13: INR 3.1, Coumadin 5mg 01/14: INR 3.7, Coumadin 5mg (stopped by pharmacy) 01/15: INR 2.8, Coumadin 5mg 01/16: INR 2.6, Coumadin 4mg 01/17: INR 2.7, Coumadin 4 mg 01/18: INR 2.3 Coumadin 4mg 01/19: INR 2.1, Coumadin 6mg 01/20: INR 2.6, Coumadin 5mg 01/21: INR 2.6, Coumadin 5mg 01/22: INR 2.5, Coumadin 6mg 01/23: INR 2.9, Coumadin 6mg, 01/24: INR 3.6, Coumadin 6mg, f/u INR 01/25: HELD Coumadin, Pt. denied blood work today 01/26: HELD Coumadin, Pt. denied blood work today 01/27: INR 1.3, Coumadin 7mg, f/u 01/28: INR 1.5, Coumadin 7mg, f/u INR 01/29: INR 2.4, Coumadin 7mg, f/u INR 01/30: INR 3.3, Coumadin 6mg, f/u INR 01/31: INR 4.1 Hold Coumadin, f/u INR 02/01: INR 2.8, Coumadin 5mg, f/u INR 02/03: INR 2.4, Coumadin 6mg, f/u INR Chronic atrial fibrillation Consulted Cardiology, Dr. Argeulles - f/u recs -Rate controlled -echocardiogram reviewed. valve leaflets are opening and functional. There is no signficant gradient across the valve. -recommend INR 2.5 to 3.5. -See PT/INR trends above Coumadin as above STOP Lovenox 01/11 Cough, acute -Mucinex 600mg PO BID -01/28: cough intermittent -01/24 does not complain of cough -01/19-01/22: Persists. Non-productive. Continue Mucinex. -01/15: patient developed productive cough with yellow sputum today. CAD (coronary artery disease) Consulted Cardiology, Dr. Arguelles - f/u recs -Aware of HR in 140's and SOB after eating and low levels of exertion. -unknown graft status. no evidence of ischemia at present -No current angina History of TN (myocardial infarction) HOLD Crestor 10mg PO HS (last dose 01/18- due to elevated LFTs) ROMIs negative x3 EKG paced Denies chest pain Transaminitis, acute 01/31: AST/ALT normalized; consider resuming crestor. 01/30 patient refusing labs. will re-attempt 01/28-01/29: Improving. hold crestor (since 01/18) 01/27: AST 37 / ALT 124 - continue to hold crestor. 01/25-01/26: Patient refused blood work 01/24: 51/164 AST / ALT down trending 01/22-01/23: AST / ALT down trending - continue to hold Crestor 01/21: AST 57 / ALT 188, decreasing. HOLD Crestor 10mg PO HS (last dose 01/18- due to elevated LFTs) 01/20: AST 75 / ALT 205 01/19: AST 70 / ALT 201 - increasing -> hold crestor for 2 nights 01/19, 01/20 01/16: AST 90 / ALT 164 - increasing -> hold Crestor tonight. - AST 77 / ALT 98 -> previously normal. - Continue to monitor Electrolyte Imbalance 01/30 patient refusing labs, will re-attempt 01/21-01/29: Hyponatremia, stable Hyperkalemia - resolved Hypokalemia, Tachycardia HR grossly WNL, continue to monitor 01/20-01/23: HR WNL 01/13: Patient becomes SOB very easily, desaturating to 82% while ambulating. Anytime he eats or gets up, HR climbs into 140's Continue Digoxin 0.125mg EKG in ER: sinus tachycardia at 100, paced, incomplete RBBB Discontinued cardizem drip of 5mg/h started in the ER Lower extremity edema LE Duplex - negative. see full report. Prophylactic measure Coumadin as above. protonix 40mg daily SCD contraindicated due to LE edema D/C when bed available <Johnnie Otoole Jr. - Last Filed: 02/04/17 16:28> Objective - Vital Signs/Intake and Output Vital Signs (last 24 hours): Temp Pulse Resp BP Pulse Ox 97.8 F 94 H 20 107/73 98 02/04/17 15:58 02/04/17 15:58 02/04/17 15:58 02/04/17 15:58 02/04/17 15:58 Intake and Output: 02/04/17 02/04/17 06:59 18:59 Intake Total 240 Output Total 800 Balance -560 - Medications Medications: Current Medications Albuterol/Ipratropium (Duoneb 3 Mg/0.5 Mg (3 Ml) Ud) 3 ml INH RQ6 JC Last Admin: 02/04/17 13:27 Dose: 3 ml Benzocaine/Menthol (Cepacol Sore Throat) 1 sarah MT Q6H PRN PRN Reason: Sore Throat Last Admin: 02/04/17 10:01 Dose: 1 sarah Budesonide (Pulmicort Respules) 0.5 mg INH RQ12 JC Last Admin: 02/04/17 07:25 Dose: Not Given Digoxin (Lanoxin) 0.125 mg PO DAILY@1800 [facility] Last Admin: 02/03/17 17:22 Dose: 0.125 mg Famotidine (Pepcid) 20 mg IVP DAILY [facility] Last Admin: 02/04/17 09:57 Dose: 20 mg Furosemide (Lasix) 40 mg PO DAILY [facility] Last Admin: 02/04/17 09:56 Dose: 40 mg Guaifenesin (Mucinex La) 600 mg PO BID [facility] Last Admin: 02/04/17 09:56 Dose: 600 mg Prednisone (Prednisone Tab) 40 mg PO DAILY [facility] Last Admin: 02/04/17 09:57 Dose: 40 mg Rosuvastatin Calcium (Crestor) 10 mg PO HS [facility] Last Admin: 02/03/17 21:38 Dose: 10 mg Spironolactone (Aldactone) 25 mg PO DAILY [facility] Last Admin: 02/04/17 09:56 Dose: 25 mg Tiotropium [place] (Spiriva) 18 mcg INH RQ24 [facility] Last Admin: 02/04/17 07:25 Dose: Not Given Warfarin Sodium (Coumadin) 5 mg PO 1800 [facility] Stop: 02/04/17 18:01 - Labs Labs: 02/03/17 13:50 02/03/17 13:50 PT 27.8 SECONDS (9.7-12.2) H 02/03/17 13:50 INR 2.4 02/03/17 13:50 APTT 37 SECONDS (21-34) H 02/03/17 13:50 Attending/Attestation - Attestation I have personally seen and examined this patient.: Yes I have fully participated in the care of the patient.: Yes I have reviewed all pertinent clinical information, including history, physical exam and plan: Yes Notes (Text): 02/04/17 16:28 Patient seen and examined with the resident. Reviewed resident notes and findings. Agree with resident's findings and plan of care as discussed
[2017-02-03] MEDS: Digoxin 125 mcg (0.125 mg) Tab PO SCH (17:22)
[2017-02-04] MEDS: Albuterol-Ipratrop 3 mg / 0.5 (3 ml) UD INH SCH ×4 (01:14→19:20)
[2017-02-04] MEDS: Tiotropium 18 mcg Cap For Inhalation INH SCH (07:25)
[2017-02-04] MEDS: Budesonide 0.5 mg/2 ml Inhal Susp UD INH SCH ×2 (07:25→19:20)
[2017-02-04] MEDS: guaiFENesin 600 mg ER Tab PO SCH ×2 (09:56→18:06)
[2017-02-04] MEDS: Benzocaine/Menthol (Cepacol) Lozenge MT PRN ×2 (10:01→18:06)
--- NOTE | 2017-02-04 10:30 | CP.PCM.PN ---
<Wale Castillo - Last Filed: 02/04/17 15:41> Subjective - Date & Time of Evaluation Date of Evaluation: 02/04/17 Time of Evaluation: 10:28 - Subjective Subjective: PGY-[address] Otoole service Pt seen and examined at bedside. Pt has no new complaints. Denies any fevers, chills, chest pain, nausea or vomiting. Pt does have some sob, which is not new. Objective - Vital Signs/Intake and Output Vital Signs (last 24 hours): Temp Pulse Resp BP Pulse Ox 98.6 F 80 18 106/69 100 02/04/17 08:41 02/04/17 08:41 02/04/17 08:41 02/04/17 09:56 02/04/17 08:41 Intake and Output: 02/04/17 02/04/17 06:59 18:59 Intake Total 240 Output Total 800 Balance -560 - Medications Medications: Current Medications Albuterol/Ipratropium (Duoneb 3 Mg/0.5 Mg (3 Ml) Ud) 3 ml INH RQ6 [facility] Last Admin: 02/04/17 07:25 Dose: Not Given Benzocaine/Menthol (Cepacol Sore Throat) 1 sarah MT Q6H PRN PRN Reason: Sore Throat Last Admin: 02/04/17 10:01 Dose: 1 sarah Budesonide (Pulmicort Respules) 0.5 mg INH RQ12 [facility] Last Admin: 02/04/17 07:25 Dose: Not Given Digoxin (Lanoxin) 0.125 mg PO DAILY@1800 [facility] Last Admin: 02/03/17 17:22 Dose: 0.125 mg Famotidine (Pepcid) 20 mg IVP DAILY [facility] Last Admin: 02/04/17 09:57 Dose: 20 mg Furosemide (Lasix) 40 mg PO DAILY [facility] Last Admin: 02/04/17 09:56 Dose: 40 mg Guaifenesin (Mucinex La) 600 mg PO BID [facility] Last Admin: 02/04/17 09:56 Dose: 600 mg Prednisone (Prednisone Tab) 40 mg PO DAILY [facility] Last Admin: 02/04/17 09:57 Dose: 40 mg Rosuvastatin Calcium (Crestor) 10 mg PO HS [facility] Last Admin: 02/03/17 21:38 Dose: 10 mg Spironolactone (Aldactone) 25 mg PO DAILY [facility] Last Admin: 02/04/17 09:56 Dose: 25 mg Tiotropium [place] (Spiriva) 18 mcg INH RQ24 [facility] Last Admin: 02/04/17 07:25 Dose: Not Given - Labs Labs: 02/03/17 13:50 02/03/17 13:50 PT 27.8 SECONDS (9.7-12.2) H 02/03/17 13:50 INR 2.4 02/03/17 13:50 APTT 37 SECONDS (21-34) H 02/03/17 13:50 - Constitutional Appears: No Acute Distress, Chronically Ill - Head Exam Head Exam: ATRAUMATIC, NORMOCEPHALIC - Eye Exam Eye Exam: Normal appearance - ENT Exam ENT Exam: Mucous Membranes Moist - Respiratory Exam Respiratory Exam: Rhonchi, NORMAL BREATHING PATTERN. absent: Respiratory Distress - Cardiovascular Exam Cardiovascular Exam: +S1, +S2 - GI/Abdominal Exam GI & Abdominal Exam: Soft, Normal Bowel Sounds - Neurological Exam Neurological Exam: Alert, Awake - Skin Skin Exam: Dry, Warm Assessment and Plan - Assessment and Plan (Free Text) Assessment: - [facility] will accept pt, waiting on pt's to confirm address that pt will be discharged home to. COPD (chronic obstructive pulmonary disease) 02/01: Prednisone 40mg PO daily; Taper on discharge. Will require home oxygen. 01/29: Stop Solumedrol IVP; Start Prednisone 40mg PO daily; Taper on discharge. Will require home oxygen. -01/28: Solumedrol reduced to 40mg IVP Q12H. Prior to discharge, change Solumedrol -> Prednisone -01/19-01/28: Continue BIPAP, patient more compliant (sometimes refuses despite being SOB). -01/16: RAPID called due to SOB. BP 80/50's. Bolused 500cc NS. Ordered BIPAP and ABG, however patient refused. Placed back on NC 3L. -01/14-01/15: Patient complaining of SOB with exertion and orthopnea. Maintain Head of bed elevated 30 degrees. -01/13: PT session: 98% O2 at 2L at rest, 96% room air at rest sitting, 82% room air during ambulation, 88% at 2 liter ambulation. -01/12: Walked 20 steps today down [address], and patient became dizzy, SOB, and almost collapsed. - Consulted Pulmonology, Dr. Cobb, f/u recs -planning for home O2 - Aware of HR in 140's and SOB after eating and low levels of exertion. -f/u ABG (not collected) -LDH 654H -HIV - negative -persistent shortness of breath - Patient with long history of smoking most likely has underlying COPD. Nebulizer treatment. Inhaled steroids. Spiriva. PFT as out pt Systolic dysfunction with acute on chronic heart failure 02/01: pt at baseline - EF 10-15%, mechanical MV- no regurg, tricuspid regurg. see full report -Chest CT 01/22 - Cardiomegaly. Cardiac valve prosthesis. Left-sided AICD. Dense coronary artery calcifications. -Small consolidation (favored to reflect atelectasis rather than pneumonia) at the left lung base. -Bibasilar atelectasis. Small airways disease. Mild ground-glass and fine nodular opacities within the right upper lobe, possibly infectious or inflammatory. -7 mm left upper lobe pulmonary nodule. Guidelines by the Fleischner society (radiology 2005; 237:390 5-400) suggests that in patients with low risk for lung cancer, with nodules less than or equal to 8 mm in diameter should have follow-up in approximately 6-12 months. In patients with high-risk, including smokers, follow-up is recommended 3-6 months. Patient with a known malignancy for risk for metastases should receive 3 month follow-up. -Hepatic capsular calcification. -Numerous low-density lesions throughout the liver, possibly cysts. Decompressed gallbladder limits evaluation. Bilateral hypodense renal lesions. Right adrenal gland hypertrophy. 12 mm left adrenal gland nodule measures approximately 9 Hounsfield units, likely adenoma. -Consulted Cardiology, Dr. Arguelles - f/u recs -01/22: Lasix 40mg IVP daily, Spironolactone 25mg daily. CXR - no interval pathology change. -01/19: HOLD LASIX FOR 1 TO 2 DAYS AND CONT MUCINEX. PT PRERENAL AND APPEARS DRY. ON BOTH LASIX AND SPIRONOLACTONE. -SOB APPEARS TO BE SECONDARY TO PULM ETIOLOGY. IMPROVES WITH NEBS. PT WITH RHONCHI B/L. MAY BENEFIT FROM PULM TOILET. -will attempt to obtain company [facility] for [facility]. -likely deconditioned. will benefit from rehab -01/16: RAPID called due to SOB. BP 80/50's. Bolused 500cc NS. Ordered BIPAP and ABG, however patient refused. Placed back on NC 3L. ProBNP 4070H (less than # on admission) and KACY negative. -01/16: Decrease to Lasix 40mg PO daily (was BID). Admit to telemetry, BNP 4560 on admission Digoxin 0.125mg Lisinopril 10mg daily Aldactone 25mg PO Daily patient with AICD, will check echo to determine EF CXR 01/03: mild cardiomegaly, mild pulmonary venous congestion. s/p sternotomy, aortic valve replacement, AICD H/O mitral valve replacement with mechanical valve Cardiac valve replacement 6-7yrs ago Consulted Cardiology, Dr. Arguelles - f/u recs -echocardiogram reviewed. valve leaflets are opening and functional. There is no signficant gradient across the valve. -recommend INR 2.5 to 3.5. STOP Lovenox 01/11 STOP Heparin Drip - cardiac protocol, with bolus (because patient is refusing blood draws) 01/07: INR 1.3 01/08: INR refused, Coumadin 10mg 01/09: INR 1.5, Coumadin 10mg 01/10: INR 2.0, Coumadin 10mg 01/11: INR 2.4, Coumadin 7.5mg; patient received one more dose of Lovenox 80mg SC today, now discontinued as bridge complete. 01/12: INR 2.5, Coumadin 7.5mg 01/13: INR 3.1, Coumadin 5mg 01/14: INR 3.7, Coumadin 5mg (stopped by pharmacy) 01/15: INR 2.8, Coumadin 5mg 01/16: INR 2.6, Coumadin 4mg 01/17: INR 2.7, Coumadin 4 mg 01/18: INR 2.3 Coumadin 4mg 01/19: INR 2.1, Coumadin 6mg 01/20: INR 2.6, Coumadin 5mg 01/21: INR 2.6, Coumadin 5mg 01/22: INR 2.5, Coumadin 6mg 01/23: INR 2.9, Coumadin 6mg, 01/24: INR 3.6, Coumadin 6mg, f/u INR 01/25: HELD Coumadin, Pt. denied blood work today 01/26: HELD Coumadin, Pt. denied blood work today 01/27: INR 1.3, Coumadin 7mg, f/u 01/28: INR 1.5, Coumadin 7mg, f/u INR 01/29: INR 2.4, Coumadin 7mg, f/u INR 01/30: INR 3.3, Coumadin 6mg, f/u INR 01/31: INR 4.1 Hold Coumadin, f/u INR 02/01: INR 2.8, Coumadin 5mg, f/u INR 02/03: INR 2.4, Coumadin 6mg, f/u INR 02/04: INR pending, Coumadin 5mg Chronic atrial fibrillation Consulted Cardiology, Dr. Arguelles - f/u recs -Rate controlled -echocardiogram reviewed. valve leaflets are opening and functional. There is no signficant gradient across the valve. -recommend INR 2.5 to 3.5. -See PT/INR trends above Coumadin as above STOP Lovenox 01/11 Cough, acute -Mucinex 600mg PO BID -01/28: cough intermittent -01/24 does not complain of cough -01/19-01/22: Persists. Non-productive. Continue Mucinex. -01/15: patient developed productive cough with yellow sputum today. CAD (coronary artery disease) Consulted Cardiology, Dr. Arguelles - f/u recs -Aware of HR in 140's and SOB after eating and low levels of exertion. -unknown graft status. no evidence of ischemia at present -No current angina History of OK (myocardial infarction) HOLD Crestor 10mg PO HS (last dose 01/18- due to elevated LFTs) ROMIs negative x3 EKG paced Denies chest pain Transaminitis, acute 01/31: AST/ALT normalized; consider resuming crestor. 01/30 patient refusing labs. will re-attempt 01/28-01/29: Improving. hold crestor (since 01/18) 01/27: AST 37 / ALT 124 - continue to hold crestor. 01/25-01/26: Patient refused blood work 01/24: 51/164 AST / ALT down trending 01/22-01/23: AST / ALT down trending - continue to hold Crestor 01/21: AST 57 / ALT 188, decreasing. HOLD Crestor 10mg PO HS (last dose 01/18- due to elevated LFTs) 01/20: AST 75 / ALT 205 01/19: AST 70 / ALT 201 - increasing -> hold crestor for 2 nights 01/19, 01/20 01/16: AST 90 / ALT 164 - increasing -> hold Crestor tonight. - AST 77 / ALT 98 -> previously normal. - Continue to monitor Electrolyte Imbalance 01/30 patient refusing labs, will re-attempt 01/21-01/29: Hyponatremia, stable Hyperkalemia - resolved Hypokalemia, Tachycardia HR grossly WNL, continue to monitor 01/20-01/23: HR WNL 01/13: Patient becomes SOB very easily, desaturating to 82% while ambulating. Anytime he eats or gets up, HR climbs into 140's Continue Digoxin 0.125mg EKG in ER: sinus tachycardia at 100, paced, incomplete RBBB Discontinued cardizem drip of 5mg/h started in the ER Lower extremity edema LE Duplex - negative. see full report. Prophylactic measure Coumadin as above. protonix 40mg daily SCD contraindicated due to LE edema D/C when bed available <Johnnie Otoole Jr. - Last Filed: 02/04/17 16:29> Objective - Vital Signs/Intake and Output Vital Signs (last 24 hours): Temp Pulse Resp BP Pulse Ox 97.8 F 94 H 20 107/73 98 02/04/17 15:58 02/04/17 15:58 02/04/17 15:58 02/04/17 15:58 02/04/17 15:58 Intake and Output: 02/04/17 02/04/17 06:59 18:59 Intake Total 240 Output Total 800 Balance -560 - Medications Medications: Current Medications Albuterol/Ipratropium (Duoneb 3 Mg/0.5 Mg (3 Ml) Ud) 3 ml INH RQ6 [facility] Last Admin: 02/04/17 13:27 Dose: 3 ml Benzocaine/Menthol (Cepacol Sore Throat) 1 sarah MT Q6H PRN PRN Reason: Sore Throat Last Admin: 02/04/17 10:01 Dose: 1 sarah Budesonide (Pulmicort Respules) 0.5 mg INH RQ12 [facility] Last Admin: 02/04/17 07:25 Dose: Not Given Digoxin (Lanoxin) 0.125 mg PO DAILY@1800 [facility] Last Admin: 02/03/17 17:22 Dose: 0.125 mg Famotidine (Pepcid) 20 mg IVP DAILY [facility] Last Admin: 02/04/17 09:57 Dose: 20 mg Furosemide (Lasix) 40 mg PO DAILY [facility] Last Admin: 02/04/17 09:56 Dose: 40 mg Guaifenesin (Mucinex La) 600 mg PO BID [facility] Last Admin: 02/04/17 09:56 Dose: 600 mg Prednisone (Prednisone Tab) 40 mg PO DAILY [facility] Last Admin: 02/04/17 09:57 Dose: 40 mg Rosuvastatin Calcium (Crestor) 10 mg PO HS [facility] Last Admin: 02/03/17 21:38 Dose: 10 mg Spironolactone (Aldactone) 25 mg PO DAILY [facility] Last Admin: 02/04/17 09:56 Dose: 25 mg Tiotropium [place] (Spiriva) 18 mcg INH RQ24 [facility] Last Admin: 02/04/17 07:25 Dose: Not Given Warfarin Sodium (Coumadin) 5 mg PO 1800 [facility] Stop: 02/04/17 18:01 - Labs Labs: 02/03/17 13:50 02/03/17 13:50 PT 27.8 SECONDS (9.7-12.2) H 02/03/17 13:50 INR 2.4 02/03/17 13:50 APTT 37 SECONDS (21-34) H 02/03/17 13:50 Attending/Attestation - Attestation I have personally seen and examined this patient.: Yes I have fully participated in the care of the patient.: Yes I have reviewed all pertinent clinical information, including history, physical exam and plan: Yes Notes (Text): 02/04/17 16:29 Examined patient with resident. Reviewed resident notes and findings. Agree with resident's findings and plan of care as discussed.
--- NOTE | 2017-02-04 10:38 | CP.PCM.PN ---
Subjective - Date & Time of Evaluation Date of Evaluation: 02/04/17 Time of Evaluation: 10:20 - Subjective Subjective: Pt seen and examined at bedside. Pt lying in bed, appears comfortable, no labored breathing, not using nasal cannula at this time. Pt continues to state similar complaints of SOB which are improved with nasal cannula use, and dry cough sporadically throughout the day. Pt continues to deny subjective fever, productivity from cough, and congestion. Pt also continues to state that he is able to walk to the bathroom without feeling SOB, but if he were to exert himself more, he fears he would become SOB. Objective - Vital Signs/Intake and Output Vital Signs (last 24 hours): Temp Pulse Resp BP Pulse Ox 98.6 F 80 18 106/69 100 02/04/17 08:41 02/04/17 08:41 02/04/17 08:41 02/04/17 09:56 02/04/17 08:41 Intake and Output: 02/04/17 02/04/17 06:59 18:59 Intake Total 240 Output Total 800 Balance -560 - Medications Medications: Current Medications Albuterol/Ipratropium (Duoneb 3 Mg/0.5 Mg (3 Ml) Ud) 3 ml INH RQ6 [facility] Last Admin: 02/04/17 07:25 Dose: Not Given Benzocaine/Menthol (Cepacol Sore Throat) 1 sarah MT Q6H PRN PRN Reason: Sore Throat Last Admin: 02/04/17 10:01 Dose: 1 sarah Budesonide (Pulmicort Respules) 0.5 mg INH RQ12 [facility] Last Admin: 02/04/17 07:25 Dose: Not Given Digoxin (Lanoxin) 0.125 mg PO DAILY@1800 [facility] Last Admin: 02/03/17 17:22 Dose: 0.125 mg Famotidine (Pepcid) 20 mg IVP DAILY [facility] Last Admin: 02/04/17 09:57 Dose: 20 mg Furosemide (Lasix) 40 mg PO DAILY [facility] Last Admin: 02/04/17 09:56 Dose: 40 mg Guaifenesin (Mucinex La) 600 mg PO BID [facility] Last Admin: 02/04/17 09:56 Dose: 600 mg Prednisone (Prednisone Tab) 40 mg PO DAILY [facility] Last Admin: 02/04/17 09:57 Dose: 40 mg Rosuvastatin Calcium (Crestor) 10 mg PO HS [facility] Last Admin: 02/03/17 21:38 Dose: 10 mg Spironolactone (Aldactone) 25 mg PO DAILY [facility] Last Admin: 02/04/17 09:56 Dose: 25 mg Tiotropium [place] (Spiriva) 18 mcg INH RQ24 [facility] Last Admin: 02/04/17 07:25 Dose: Not Given - Labs Labs: 02/03/17 13:50 02/03/17 13:50 PT 27.8 SECONDS (9.7-12.2) H 02/03/17 13:50 INR 2.4 02/03/17 13:50 APTT 37 SECONDS (21-34) H 02/03/17 13:50 - Constitutional Appears: Non-toxic, No Acute Distress - Head Exam Head Exam: NORMAL INSPECTION - Eye Exam Eye Exam: Normal appearance, PERRL - ENT Exam ENT Exam: Mucous Membranes Moist - Respiratory Exam Respiratory Exam: Rhonchi (Minimal, improving ), Wheezes (Minimal, improving ), NORMAL BREATHING PATTERN. absent: Rales, Respiratory Distress, Stridor - Cardiovascular Exam Cardiovascular Exam: REGULAR RHYTHM, +S1, +S2 - Neurological Exam Neurological Exam: Alert, Awake, Oriented x3 - Psychiatric Exam Psychiatric exam: Anxious (Pt rests comfortably, but upon interaction with medical team seems to become anxious ) - Skin Skin Exam: Dry, Intact, Normal Color, Warm Assessment and Plan (1) COPD (chronic obstructive pulmonary disease) Assessment & Plan: Pt continues to improve from pulmonary stand point. Continue Prednisone, nebulizer, oxygen, and BiPAP as needed. Pt currently not using BiPAP as he is stable on the nasal cannula alone Continue to monitor for increased SOB, productive cough, and fever. Pt is pending placement. Pt will need home oxygen upon discharge. Status: Acute (2) Acute exacerbation of CHF (congestive heart failure) Status: Acute (3) Chronic atrial fibrillation Status: Chronic
[2017-02-04 16:51] LABS: BASO % 0.2 % (0.0-2.0); EOS % 0.1 % (0.0-4.0); HEMATOCRIT 39.2 % (35.0-51.0); LYMPH # 0.2 K/uL (1.0-4.3); LYMPH % 2.2 % (20.0-40.0); MEAN CELL VOLUME 80.7 fL (80.0-94.0); MEAN CORPUSCULAR HEMOGLOBIN 26.2 pg (27.0-31.0); MEAN CORPUSCULAR HGB CONC 32.4 g/dL (33.0-37.0); MEAN PLATELET VOLUME 6.9 fL (7.2-11.7); MONO # 0.5 K/uL (0.0-0.8); MONO % 5.9 % (0.0-10.0); PLATELET COUNT 136 K/uL (130-400); RED CELL DISTRIBUTION WIDTH 18.9 % (11.5-14.5); WHITE BLOOD COUNT 8.5 K/uL (4.8-10.8)
[2017-02-04 16:56] LABS: INR 3.1
[2017-02-04 17:00] LABS: CHLORIDE 94 mmol/L (98-107)
[2017-02-04 17:01] LABS: POTASSIUM 4.7 mmol/L (3.6-5.2); SODIUM 131 mmol/L (132-148)
[2017-02-04 17:03] LABS: ALB/GLOB RATIO 1.2 (1.0-2.1); ALKALINE PHOSPHATASE 69 U/L (38-126); ALT/SGPT 61 U/L (21-72); AST/SGOT 31 U/L (17-59); BILIRUBIN,TOTAL 0.9 mg/dL (0.2-1.3); BLOOD UREA NITROGEN 24 mg/dL (9-20); CARBON DIOXIDE 28 mmol/L (22-30); GFR AFRICAN-AMERICAN > 60; TOTAL PROTEIN 5.9 g/dL (6.3-8.3)
[2017-02-04 17:04] LABS: GLUCOSE,RANDOM 160 mg/dL (75-110); MAGNESIUM 2.1 mg/dL (1.6-2.3); PHOSPHOROUS 2.5 mg/dL (2.5-4.5)
[2017-02-04] MEDS: Digoxin 125 mcg (0.125 mg) Tab PO SCH (18:05)
[2017-02-04 18:25] LABS: NEUTROPHIL 91 % (50-75); TOTAL CELLS COUNTED 100
[2017-02-05] MEDS: Albuterol-Ipratrop 3 mg / 0.5 (3 ml) UD INH SCH ×4 (01:18→19:51)
[2017-02-05] MEDS: Budesonide 0.5 mg/2 ml Inhal Susp UD INH SCH ×2 (08:28→19:51)
[2017-02-05] MEDS: Tiotropium 18 mcg Cap For Inhalation INH SCH (08:28)
[2017-02-05 11:19] LABS: INR 2.9
[2017-02-05] MEDS: guaiFENesin 600 mg ER Tab PO SCH ×2 (12:33→18:23)
[2017-02-05] MEDS: Benzocaine/Menthol (Cepacol) Lozenge MT PRN (12:33)
--- NOTE | 2017-02-05 13:52 | CP.PCM.PN ---
<JonathanWale - Last Filed: 02/05/17 18:14> Subjective - Date & Time of Evaluation Date of Evaluation: 02/05/17 Time of Evaluation: 13:49 - Subjective Subjective: PGY-[address] Otoole's service Pt seen and examined at bedside. Pt still complains of sob with exertion. Pt has not been able to talk to family concerning [facility]. Denies any fevers, chills, chest pain, nausea or vomiting. Objective - Vital Signs/Intake and Output Vital Signs (last 24 hours): Temp Pulse Resp BP Pulse Ox 97.5 F L 78 20 91/64 L 100 02/05/17 07:30 02/05/17 07:30 02/05/17 07:30 02/05/17 10:26 02/05/17 07:30 Intake and Output: 02/05/17 02/05/17 06:59 18:59 Intake Total 450 Output Total 2250 Balance -1800 - Medications Medications: Current Medications Albuterol/Ipratropium (Duoneb 3 Mg/0.5 Mg (3 Ml) Ud) 3 ml INH RQ6 [facility] Last Admin: 02/05/17 08:28 Dose: 3 ml Benzocaine/Menthol (Cepacol Sore Throat) 1 sarah MT Q6H PRN PRN Reason: Sore Throat Last Admin: 02/05/17 12:33 Dose: 1 sarah Budesonide (Pulmicort Respules) 0.5 mg INH RQ12 [facility] Last Admin: 02/05/17 08:28 Dose: 0.5 mg Digoxin (Lanoxin) 0.125 mg PO DAILY@1800 [facility] Last Admin: 02/04/17 18:05 Dose: 0.125 mg Famotidine (Pepcid) 20 mg IVP DAILY [facility] Last Admin: 02/05/17 10:22 Dose: 20 mg Furosemide (Lasix) 40 mg PO DAILY [facility] Last Admin: 02/05/17 10:26 Dose: Not Given Guaifenesin (Mucinex La) 600 mg PO BID [facility] Last Admin: 02/05/17 12:33 Dose: 600 mg Prednisone (Prednisone Tab) 40 mg PO DAILY [facility] Last Admin: 02/05/17 10:21 Dose: 40 mg Rosuvastatin Calcium (Crestor) 10 mg PO HS [facility] Last Admin: 02/04/17 22:22 Dose: 10 mg Spironolactone (Aldactone) 25 mg PO DAILY [facility] Last Admin: 02/05/17 10:21 Dose: 25 mg Tiotropium [place] (Spiriva) 18 mcg INH RQ24 [facility] Last Admin: 02/05/17 08:28 Dose: 18 mcg Warfarin Sodium (Coumadin) 6 mg PO 1800 [facility] Stop: 02/05/17 18:01 - Labs Labs: 02/04/17 16:46 02/04/17 16:46 PT 34.7 SECONDS (9.7-12.2) H* 02/05/17 11:04 INR 2.9 02/05/17 11:04 APTT 37 SECONDS (21-34) H 02/03/17 13:50 - Constitutional Appears: Non-toxic, No Acute Distress, Chronically Ill - Head Exam Head Exam: ATRAUMATIC, NORMOCEPHALIC - Eye Exam Eye Exam: Normal appearance - ENT Exam ENT Exam: Mucous Membranes Moist - Respiratory Exam Respiratory Exam: Rhonchi, NORMAL BREATHING PATTERN - Cardiovascular Exam Cardiovascular Exam: +S1, +S2 - GI/Abdominal Exam GI & Abdominal Exam: Soft, Normal Bowel Sounds - Neurological Exam Neurological Exam: Alert, Awake - Skin Skin Exam: Dry, Warm Assessment and Plan - Assessment and Plan (Free Text) Assessment: - [facility] will accept pt, waiting on pt's to confirm address that pt will be discharged home to. - Pt not a safe discharge to home due to functional status Numbness and tingling - left sided - CT head - f/u COPD (chronic obstructive pulmonary disease) 02/05: CT chest with high resolution - r/o interstitial disease - f/u 02/01: Prednisone 40mg PO daily; Taper on discharge. Will require home oxygen. 01/29: Stop Solumedrol IVP; Start Prednisone 40mg PO daily; Taper on discharge. Will require home oxygen. -01/28: Solumedrol reduced to 40mg IVP Q12H. Prior to discharge, change Solumedrol -> Prednisone -01/19-01/28: Continue BIPAP, patient more compliant (sometimes refuses despite being SOB). -01/16: RAPID called due to SOB. BP 80/50's. Bolused 500cc NS. Ordered BIPAP and ABG, however patient refused. Placed back on NC 3L. -01/14-01/15: Patient complaining of SOB with exertion and orthopnea. Maintain Head of bed elevated 30 degrees. -01/13: PT session: 98% O2 at 2L at rest, 96% room air at rest sitting, 82% room air during ambulation, 88% at 2 liter ambulation. -01/12: Walked 20 steps today down [address], and patient became dizzy, SOB, and almost collapsed. - Consulted Pulmonology, Dr. Cobb, f/u recs -planning for home O2 - Aware of HR in 140's and SOB after eating and low levels of exertion. -f/u ABG (not collected) -LDH 654H -HIV - negative -persistent shortness of breath - Patient with long history of smoking most likely has underlying COPD. Nebulizer treatment. Inhaled steroids. Spiriva. PFT as out pt Systolic dysfunction with acute on chronic heart failure 02/01: pt at baseline - EF 10-15%, mechanical MV- no regurg, tricuspid regurg. see full report -Chest CT 01/22 - Cardiomegaly. Cardiac valve prosthesis. Left-sided AICD. Dense coronary artery calcifications. -Small consolidation (favored to reflect atelectasis rather than pneumonia) at the left lung base. -Bibasilar atelectasis. Small airways disease. Mild ground-glass and fine nodular opacities within the right upper lobe, possibly infectious or inflammatory. -7 mm left upper lobe pulmonary nodule. Guidelines by the Fleischner society (radiology 2005; 237:390 5-400) suggests that in patients with low risk for lung cancer, with nodules less than or equal to 8 mm in diameter should have follow-up in approximately 6-12 months. In patients with high-risk, including smokers, follow-up is recommended 3-6 months. Patient with a known malignancy for risk for metastases should receive 3 month follow-up. -Hepatic capsular calcification. -Numerous low-density lesions throughout the liver, possibly cysts. Decompressed gallbladder limits evaluation. Bilateral hypodense renal lesions. Right adrenal gland hypertrophy. 12 mm left adrenal gland nodule measures approximately 9 Hounsfield units, likely adenoma. -Consulted Cardiology, Dr. Arguelles - f/u recs -01/22: Lasix 40mg IVP daily, Spironolactone 25mg daily. CXR - no interval pathology change. -01/19: HOLD LASIX FOR 1 TO 2 DAYS AND CONT MUCINEX. PT PRERENAL AND APPEARS DRY. ON BOTH LASIX AND SPIRONOLACTONE. -SOB APPEARS TO BE SECONDARY TO PULM ETIOLOGY. IMPROVES WITH NEBS. PT WITH RHONCHI B/L. MAY BENEFIT FROM PULM TOILET. -[facility]. -likely deconditioned. will benefit from rehab -01/16: RAPID called due to SOB. BP 80/50's. Bolused 500cc NS. Ordered BIPAP and ABG, however patient refused. Placed back on NC 3L. ProBNP 4070H (less than # on admission) and KACY negative. -01/16: Decrease to Lasix 40mg PO daily (was BID). Admit to telemetry, BNP 4560 on admission Digoxin 0.125mg Lisinopril 10mg daily Aldactone 25mg PO Daily patient with AICD, will check echo to determine EF CXR 01/03: mild cardiomegaly, mild pulmonary venous congestion. s/p sternotomy, aortic valve replacement, AICD H/O mitral valve replacement with mechanical valve Cardiac valve replacement 6-7yrs ago Consulted Cardiology, Dr. Arguelles - f/u recs -echocardiogram reviewed. valve leaflets are opening and functional. There is no signficant gradient across the valve. -recommend INR 2.5 to 3.5. STOP Lovenox 3/5 STOP Heparin Drip - cardiac protocol, with bolus (because patient is refusing blood draws) 01/07: INR 1.3 01/08: INR refused, Coumadin 10mg 01/09: INR 1.5, Coumadin 10mg 01/10: INR 2.0, Coumadin 10mg 01/11: INR 2.4, Coumadin 7.5mg; patient received one more dose of Lovenox 80mg SC today, now discontinued as bridge complete. 01/12: INR 2.5, Coumadin 7.5mg 01/13: INR 3.1, Coumadin 5mg 01/14: INR 3.7, Coumadin 5mg (stopped by pharmacy) 01/15: INR 2.8, Coumadin 5mg 01/16: INR 2.6, Coumadin 4mg 01/17: INR 2.7, Coumadin 4 mg 01/18: INR 2.3 Coumadin 4mg 01/19: INR 2.1, Coumadin 6mg 01/20: INR 2.6, Coumadin 5mg 01/21: INR 2.6, Coumadin 5mg 01/22: INR 2.5, Coumadin 6mg 01/23: INR 2.9, Coumadin 6mg, 01/24: INR 3.6, Coumadin 6mg, f/u INR 01/25: HELD Coumadin, Pt. denied blood work today 01/26: HELD Coumadin, Pt. denied blood work today 01/27: INR 1.3, Coumadin 7mg, f/u 01/28: INR 1.5, Coumadin 7mg, f/u INR 01/29: INR 2.4, Coumadin 7mg, f/u INR 01/30: INR 3.3, Coumadin 6mg, f/u INR 01/31: INR 4.1 Hold Coumadin, f/u INR 02/01: INR 2.8, Coumadin 5mg, f/u INR 02/03: INR 2.4, Coumadin 6mg, f/u INR 02/04: INR 3.1, Coumadin 5mg, f/u INR 01/26: INR 2.9, Coumadin 6mg, f/u INR Chronic atrial fibrillation Consulted Cardiology, Dr. Arguelles - f/u recs -Rate controlled -echocardiogram reviewed. valve leaflets are opening and functional. There is no signficant gradient across the valve. -recommend INR 2.5 to 3.5. -See PT/INR trends above Coumadin as above STOP Lovenox 01/11 Cough, acute -Mucinex 600mg PO BID -01/28: cough intermittent -01/24 does not complain of cough -01/19-01/22: Persists. Non-productive. Continue Mucinex. -01/15: patient developed productive cough with yellow sputum today. CAD (coronary artery disease) Consulted Cardiology, Dr. Arguelles - f/u recs -Aware of HR in 140's and SOB after eating and low levels of exertion. -unknown graft status. no evidence of ischemia at present -No current angina History of NM (myocardial infarction) HOLD Crestor 10mg PO HS (last dose 01/18- due to elevated LFTs) ROMIs negative x3 EKG paced Denies chest pain Transaminitis, acute 01/31: AST/ALT normalized; consider resuming crestor. 01/30 patient refusing labs. will re-attempt 01/28-01/29: Improving. hold crestor (since 01/18) 01/27: AST 37 / ALT 124 - continue to hold crestor. 01/25-01/26: Patient refused blood work 01/24: 51/164 AST / ALT down trending 01/22-01/23: AST / ALT down trending - continue to hold Crestor 01/21: AST 57 / ALT 188, decreasing. HOLD Crestor 10mg PO HS (last dose 01/18- due to elevated LFTs) 01/20: AST 75 / ALT 205 01/19: AST 70 / ALT 201 - increasing -> hold crestor for 2 nights 01/19, 01/20 01/16: AST 90 / ALT 164 - increasing -> hold Crestor tonight. - AST 77 / ALT 98 -> previously normal. - Continue to monitor Electrolyte Imbalance 01/30 patient refusing labs, will re-attempt 01/21-01/29: Hyponatremia, stable Hyperkalemia - resolved Hypokalemia, Tachycardia HR grossly WNL, continue to monitor 01/20-01/23: HR WNL 01/13: Patient becomes SOB very easily, desaturating to 82% while ambulating. Anytime he eats or gets up, HR climbs into 140's Continue Digoxin 0.125mg EKG in ER: sinus tachycardia at 100, paced, incomplete RBBB Discontinued cardizem drip of 5mg/h started in the ER Lower extremity edema LE Duplex - negative. see full report. Prophylactic measure Coumadin as above. protonix 40mg daily SCD contraindicated due to LE edema D/C when bed available <Johnnie Otoole Jr. - Last Filed: 02/06/17 17:21> Objective - Vital Signs/Intake and Output Vital Signs (last 24 hours): Temp Pulse Resp BP Pulse Ox 97.2 F L 94 H 18 94/58 L 99 02/06/17 16:00 02/06/17 16:00 02/06/17 16:00 02/06/17 16:00 02/06/17 16:00 Intake and Output: 02/06/17 02/06/17 06:59 18:59 Intake Total 650 Output Total 700 Balance -50 - Medications Medications: Current Medications Albuterol/Ipratropium (Duoneb 3 Mg/0.5 Mg (3 Ml) Ud) 3 ml INH RQ6 [facility] Last Admin: 02/06/17 13:11 Dose: 3 ml Benzocaine/Menthol (Cepacol Sore Throat) 1 sarah MT Q6H PRN PRN Reason: Sore Throat Last Admin: 02/06/17 10:19 Dose: 1 sarah Budesonide (Pulmicort Respules) 0.5 mg INH RQ12 [facility] Last Admin: 02/06/17 08:37 Dose: 0.5 mg Digoxin (Lanoxin) 0.125 mg PO DAILY@1800 [facility] Last Admin: 02/05/17 18:23 Dose: 0.125 mg Famotidine (Pepcid) 20 mg IVP DAILY [facility] Last Admin: 02/06/17 12:51 Dose: 20 mg Furosemide (Lasix) 40 mg PO DAILY [facility] Last Admin: 02/06/17 10:22 Dose: Not Given Guaifenesin (Mucinex La) 600 mg PO BID [facility] Last Admin: 02/06/17 12:51 Dose: 600 mg Prednisone (Prednisone Tab) 40 mg PO DAILY [facility] Last Admin: 02/06/17 10:19 Dose: 40 mg Rosuvastatin Calcium (Crestor) 10 mg PO HS [facility] Last Admin: 02/05/17 22:09 Dose: 10 mg Spironolactone (Aldactone) 25 mg PO DAILY [facility] Last Admin: 02/06/17 10:21 Dose: 25 mg Tiotropium [place] (Spiriva) 18 mcg INH RQ24 [facility] Last Admin: 02/06/17 08:37 Dose: 18 mcg Warfarin Sodium (Coumadin) 2.5 mg PO 1800 [facility] Stop: 02/06/17 18:01 Warfarin Sodium (Coumadin) 3 mg PO 1800 [facility] Stop: 02/06/17 18:01 - Labs Labs: 02/04/17 16:46 02/04/17 16:46 PT 41.2 SECONDS (9.7-12.2) H* D 02/06/17 10:45 INR 3.4 02/06/17 10:45 APTT 37 SECONDS (21-34) H 02/03/17 13:50 Attending/Attestation - Attestation I have personally seen and examined this patient.: Yes I have fully participated in the care of the patient.: Yes I have reviewed all pertinent clinical information, including history, physical exam and plan: Yes Notes (Text): 02/06/17 17:21 Patient seen and examined with the resident. Agree with findings and resident note. Plan of care discussed
[2017-02-05] MEDS: Digoxin 125 mcg (0.125 mg) Tab PO SCH (18:23)
--- NOTE | 2017-02-05 19:01 | CT ---
PROCEDURE: CT HEAD WITHOUT CONTRAST. HISTORY: numbness and tingling on left side COMPARISON: None available. TECHNIQUE: Axial computed tomography images were obtained through the head/brain without intravenous contrast. Radiation dose: Total exam DLP = 937 mGy-cm. FINDINGS: HEMORRHAGE: No intracranial hemorrhage. BRAIN: No mass effect or edema. No atrophy or chronic microvascular ischemic changes. VENTRICLES: Unremarkable. No hydrocephalus. CALVARIUM: Unremarkable. PARANASAL SINUSES: Unremarkable as visualized. No significant inflammatory changes. MASTOID AIR CELLS: Unremarkable as visualized. No inflammatory changes. OTHER FINDINGS: None. IMPRESSION: No acute findings
[2017-02-06] MEDS: Albuterol-Ipratrop 3 mg / 0.5 (3 ml) UD INH SCH ×4 (01:27→19:17)
[2017-02-06] MEDS: Budesonide 0.5 mg/2 ml Inhal Susp UD INH SCH ×2 (08:37→19:17)
[2017-02-06] MEDS: Tiotropium 18 mcg Cap For Inhalation INH SCH (08:37)
[2017-02-06] MEDS: Benzocaine/Menthol (Cepacol) Lozenge MT PRN ×2 (10:19→17:58)
--- NOTE | 2017-02-06 10:51 | CT ---
PROCEDURE: CT Chest without contrast HISTORY: r/o interstitial disease COMPARISON: None. TECHNIQUE: Contiguous axial images were obtained through the chest without intravenous contrast enhancement. Sagittal and coronal reconstructions were performed. Thin cuts high-resolution images were also obtained. This CT exam was performed using one or more of the following dose reduction techniques: Automated exposure control, adjustment of the mA and/or kV according to patient size, and/or use of iterative reconstruction technique. Radiation dose (DLP): 653.6 mGy-cm. FINDINGS: LUNGS: Interval appearance of new nodular opacities and small foci of consolidation specially at the right upper lobe and left lower lobe since the previous exam. Persistent patchy ground-glass opacities in the mid and lower portion of the lungs likely related to pulmonary congestion. No CT evidence of interstitial lung disease. Small reticular opacities likely represent interstitial septal thickening seen more prominent at the posterior and lower portion of the lungs that also likely related to pulmonary congestion. MEDIASTINUM: The thoracic aorta is mildly ectatic. The heart is mildly to moderately enlarged Main pulmonary artery unremarkable. No vascular congestion. Mildly enlarged precarinal lymph node is seen measures 2 centimeter. PLEURA: Small right pleural effusion. There is also trace left pleural effusion. BONES: No fracture. No destructive lesion. UPPER ABDOMEN: Multiple low-attenuation lesions are seen in the liver and kidneys. There is linear calcification around the liver likely a sequela of prior infection or inflammatory process. OTHER FINDINGS: None. IMPRESSION: No definite CT evidence of interstitial lung disease. Cardiomegaly and [id number] pulmonary vascular congestion. Interval appearance of new round opacities/ nodules in the right upper lobe and left lower lobe since the previous study. The differential diagnosis includes multifocal pneumonia. The possibility of neoplasm is not totally excluded. Follow-up reassessment is recommended. Otherwise no significant interval change since the previous study dated 01/22/2017.
[2017-02-06 10:59] LABS: INR 3.4
--- NOTE | 2017-02-06 11:35 | CP.PCM.PN ---
<Wale Castillo - Last Filed: 02/06/17 17:13> Subjective - Date & Time of Evaluation Date of Evaluation: 02/06/17 Time of Evaluation: 11:25 - Subjective Subjective: PGY-[address] Otoole's service Pt seen and examined at bedside. He has no new complaints today. He is still sob with minimal exertion. Denies fevers, chills, chest pain, nausea or vomiting. Objective - Vital Signs/Intake and Output Vital Signs (last 24 hours): Temp Pulse Resp BP Pulse Ox 97.8 F 68 20 90/61 L 95 02/06/17 07:25 02/06/17 07:25 02/06/17 07:25 02/06/17 10:22 02/06/17 07:25 Intake and Output: 02/06/17 02/06/17 06:59 18:59 Intake Total 650 Output Total 700 Balance -50 - Medications Medications: Current Medications Albuterol/Ipratropium (Duoneb 3 Mg/0.5 Mg (3 Ml) Ud) 3 ml INH RQ6 [facility] Last Admin: 02/06/17 08:37 Dose: 3 ml Benzocaine/Menthol (Cepacol Sore Throat) 1 sarah MT Q6H PRN PRN Reason: Sore Throat Last Admin: 02/06/17 10:19 Dose: 1 sarah Budesonide (Pulmicort Respules) 0.5 mg INH RQ12 [facility] Last Admin: 02/06/17 08:37 Dose: 0.5 mg Digoxin (Lanoxin) 0.125 mg PO DAILY@1800 [facility] Last Admin: 02/05/17 18:23 Dose: 0.125 mg Famotidine (Pepcid) 20 mg IVP DAILY [facility] Last Admin: 02/05/17 10:22 Dose: 20 mg Furosemide (Lasix) 40 mg PO DAILY [facility] Last Admin: 02/06/17 10:22 Dose: Not Given Guaifenesin (Mucinex La) 600 mg PO BID [facility] Last Admin: 02/05/17 18:23 Dose: 600 mg Prednisone (Prednisone Tab) 40 mg PO DAILY [facility] Last Admin: 02/06/17 10:19 Dose: 40 mg Rosuvastatin Calcium (Crestor) 10 mg PO HS [facility] Last Admin: 02/05/17 22:09 Dose: 10 mg Spironolactone (Aldactone) 25 mg PO DAILY [facility] Last Admin: 02/06/17 10:21 Dose: 25 mg Tiotropium Nordman (Spiriva) 18 mcg INH RQ24 [facility] Last Admin: 02/06/17 08:37 Dose: 18 mcg Warfarin Sodium (Coumadin) 5.5 mg PO 1800 [facility] Stop: 02/06/17 18:01 - Labs Labs: 02/04/17 16:46 02/04/17 16:46 PT 41.2 SECONDS (9.7-12.2) H* D 02/06/17 10:45 INR 3.4 02/06/17 10:45 APTT 37 SECONDS (21-34) H 02/03/17 13:50 - Constitutional Appears: Non-toxic, No Acute Distress, Chronically Ill - Head Exam Head Exam: ATRAUMATIC, NORMOCEPHALIC - ENT Exam ENT Exam: Mucous Membranes Moist - Respiratory Exam Respiratory Exam: Rhonchi, NORMAL BREATHING PATTERN - Cardiovascular Exam Cardiovascular Exam: +S1, +S2 - GI/Abdominal Exam GI & Abdominal Exam: Soft, Normal Bowel Sounds - Neurological Exam Neurological Exam: Alert, Awake - Skin Skin Exam: Dry, Warm Assessment and Plan - Assessment and Plan (Free Text) Assessment: Assessment: - [facility] will accept pt, waiting on pt's to confirm address that pt will be discharged home to. - Pt not a safe discharge to home due to functional status Numbness and tingling - left sided - CT head - normal head CT Shortness of breath - secondary to chronic COPD vs pneumonia vs malignancy - CT Chest HR - No definite CT evidence of interstitial lung disease. Cardiomegaly and [id number] pulmonary vascular congestion. Interval appearance of new round opacities/ nodules in the right upper lobe and left lower lobe since the previous study. The differential diagnosis includes multifocal pneumonia. The possibility of neoplasm is not totally excluded. Follow-up reassessment is recommended. Otherwise no significant interval change since the previous study dated 01/22/2017. COPD (chronic obstructive pulmonary disease) 02/05: CT chest with high resolution - see above 02/01: Prednisone 40mg PO daily; Taper on discharge. Will require home oxygen. 01/29: Stop Solumedrol IVP; Start Prednisone 40mg PO daily; Taper on discharge. Will require home oxygen. -01/28: Solumedrol reduced to 40mg IVP Q12H. Prior to discharge, change Solumedrol -> Prednisone -01/19-01/28: Continue BIPAP, patient more compliant (sometimes refuses despite being SOB). -01/16: RAPID called due to SOB. BP 80/50's. Bolused 500cc NS. Ordered BIPAP and ABG, however patient refused. Placed back on NC 3L. -01/14-01/15: Patient complaining of SOB with exertion and orthopnea. Maintain Head of bed elevated 30 degrees. -01/13: PT session: 98% O2 at 2L at rest, 96% room air at rest sitting, 82% room air during ambulation, 88% at 2 liter ambulation. -01/12: Walked 20 steps today down [address], and patient became dizzy, SOB, and almost collapsed. - Consulted Pulmonology, Dr. Cobb, f/u recs -planning for home O2 - Aware of HR in 140's and SOB after eating and low levels of exertion. -f/u ABG (not collected) -LDH 654H -HIV - negative -persistent shortness of breath - Patient with long history of smoking most likely has underlying COPD. Nebulizer treatment. Inhaled steroids. Spiriva. PFT as out pt Systolic dysfunction with acute on chronic heart failure 02/01: pt at baseline - EF 10-15%, mechanical MV- no regurg, tricuspid regurg. see full report -Chest CT 01/22 - Cardiomegaly. Cardiac valve prosthesis. Left-sided AICD. Dense coronary artery calcifications. -Small consolidation (favored to reflect atelectasis rather than pneumonia) at the left lung base. -Bibasilar atelectasis. Small airways disease. Mild ground-glass and fine nodular opacities within the right upper lobe, possibly infectious or inflammatory. -7 mm left upper lobe pulmonary nodule. Guidelines by the Fleischner society (radiology 2005; 237:390 5-400) suggests that in patients with low risk for lung cancer, with nodules less than or equal to 8 mm in diameter should have follow-up in approximately 6-12 months. In patients with high-risk, including smokers, follow-up is recommended 3-6 months. Patient with a known malignancy for risk for metastases should receive 3 month follow-up. -Hepatic capsular calcification. -Numerous low-density lesions throughout the liver, possibly cysts. Decompressed gallbladder limits evaluation. Bilateral hypodense renal lesions. Right adrenal gland hypertrophy. 12 mm left adrenal gland nodule measures approximately 9 Hounsfield units, likely adenoma. -Consulted Cardiology, Dr. Arguelles - f/u recs -01/22: Lasix 40mg IVP daily, Spironolactone 25mg daily. CXR - no interval pathology change. -01/19: HOLD LASIX FOR 1 TO 2 DAYS AND CONT MUCINEX. PT PRERENAL AND APPEARS DRY. ON BOTH LASIX AND SPIRONOLACTONE. -SOB APPEARS TO BE SECONDARY TO PULM ETIOLOGY. IMPROVES WITH NEBS. PT WITH RHONCHI B/L. MAY BENEFIT FROM PULM TOILET. -will attempt to obtain company of [facility] for interrogation. -likely deconditioned. will benefit from rehab -01/16: RAPID called due to SOB. BP 80/50's. Bolused 500cc NS. Ordered BIPAP and ABG, however patient refused. Placed back on NC 3L. ProBNP 4070H (less than # on admission) and KACY negative. -01/16: Decrease to Lasix 40mg PO daily (was BID). Admit to telemetry, BNP 4560 on admission Digoxin 0.125mg Lisinopril 10mg daily Aldactone 25mg PO Daily patient with AICD, will check echo to determine EF CXR 01/03: mild cardiomegaly, mild pulmonary venous congestion. s/p sternotomy, aortic valve replacement, AICD H/O mitral valve replacement with mechanical valve Cardiac valve replacement 6-7yrs ago Consulted Cardiology, Dr. Arguelles - f/u recs -echocardiogram reviewed. valve leaflets are opening and functional. There is no signficant gradient across the valve. -recommend INR 2.5 to 3.5. STOP Lovenox 3/5 STOP Heparin Drip - cardiac protocol, with bolus (because patient is refusing blood draws) 01/07: INR 1.3 32: INR refused, Coumadin 10mg 01/09: INR 1.5, Coumadin 10mg 01/10: INR 2.0, Coumadin 10mg 01/11: INR 2.4, Coumadin 7.5mg; patient received one more dose of Lovenox 80mg SC today, now discontinued as bridge complete. 01/12: INR 2.5, Coumadin 7.5mg 01/13: INR 3.1, Coumadin 5mg 01/14: INR 3.7, Coumadin 5mg (stopped by pharmacy) 01/15: INR 2.8, Coumadin 5mg 01/16: INR 2.6, Coumadin 4mg 01/17: INR 2.7, Coumadin 4 mg 01/18: INR 2.3 Coumadin 4mg 01/19: INR 2.1, Coumadin 6mg 01/20: INR 2.6, Coumadin 5mg 01/21: INR 2.6, Coumadin 5mg 01/22: INR 2.5, Coumadin 6mg 01/23: INR 2.9, Coumadin 6mg, 01/24: INR 3.6, Coumadin 6mg, f/u INR 01/25: HELD Coumadin, Pt. denied blood work today 01/26: HELD Coumadin, Pt. denied blood work today 01/27: INR 1.3, Coumadin 7mg, f/u 01/28: INR 1.5, Coumadin 7mg, f/u INR 01/29: INR 2.4, Coumadin 7mg, f/u INR 01/30: INR 3.3, Coumadin 6mg, f/u INR 01/31: INR 4.1 Hold Coumadin, f/u INR 02/01: INR 2.8, Coumadin 5mg, f/u INR 02/03: INR 2.4, Coumadin 6mg, f/u INR 02/04: INR 3.1, Coumadin 5mg, f/u INR 02/05: INR 2.9, Coumadin 6mg, f/u INR 02/06: INR 3.4, Coumadin 5.5mg Chronic atrial fibrillation Consulted Cardiology, Dr. Arguelles - f/u recs -Rate controlled -echocardiogram reviewed. valve leaflets are opening and functional. There is no signficant gradient across the valve. -recommend INR 2.5 to 3.5. -See PT/INR trends above Coumadin as above STOP Lovenox 01/11 Cough, acute -Mucinex 600mg PO BID -01/28: cough intermittent -01/24 does not complain of cough -01/19-01/22: Persists. Non-productive. Continue Mucinex. -01/15: patient developed productive cough with yellow sputum today. CAD (coronary artery disease) Consulted Cardiology, Dr. Arguelles - f/u recs -Aware of HR in 140's and SOB after eating and low levels of exertion. -unknown graft status. no evidence of ischemia at present -No current angina History of AK (myocardial infarction) HOLD Crestor 10mg PO HS (last dose 01/18- due to elevated LFTs) ROMIs negative x3 EKG paced Denies chest pain Transaminitis, acute 01/31: AST/ALT normalized; consider resuming crestor. 01/30 patient refusing labs. will re-attempt 01/28-01/29: Improving. hold crestor (since 01/18) 01/27: AST 37 / ALT 124 - continue to hold crestor. 01/25-01/26: Patient refused blood work 01/24: 51/164 AST / ALT down trending 01/22-01/23: AST / ALT down trending - continue to hold Crestor 01/21: AST 57 / ALT 188, decreasing. HOLD Crestor 10mg PO HS (last dose 01/18- due to elevated LFTs) 01/20: AST 75 / ALT 205 01/19: AST 70 / ALT 201 - increasing -> hold crestor for 2 nights 01/19, 01/20 01/16: AST 90 / ALT 164 - increasing -> hold Crestor tonight. - AST 77 / ALT 98 -> previously normal. - Continue to monitor Electrolyte Imbalance 01/30 patient refusing labs, will re-attempt 01/21-01/29: Hyponatremia, stable Hyperkalemia - resolved Hypokalemia, Tachycardia HR grossly WNL, continue to monitor 01/20-01/23: HR WNL 01/13: Patient becomes SOB very easily, desaturating to 82% while ambulating. Anytime he eats or gets up, HR climbs into 140's Continue Digoxin 0.125mg EKG in ER: sinus tachycardia at 100, paced, incomplete RBBB Discontinued cardizem drip of 5mg/h started in the ER Lower extremity edema LE Duplex - negative. see full report. Prophylactic measure Coumadin as above. protonix 40mg daily SCD contraindicated due to LE edema D/C when bed available <Johnnie Otoole Jr. - Last Filed: 02/06/17 17:25> Objective - Vital Signs/Intake and Output Vital Signs (last 24 hours): Temp Pulse Resp BP Pulse Ox 97.2 F L 94 H 18 94/58 L 99 02/06/17 16:00 02/06/17 16:00 02/06/17 16:00 02/06/17 16:00 02/06/17 16:00 Intake and Output: 02/06/17 02/06/17 06:59 18:59 Intake Total 650 Output Total 700 Balance -50 - Medications Medications: Current Medications Albuterol/Ipratropium (Duoneb 3 Mg/0.5 Mg (3 Ml) Ud) 3 ml INH RQ6 [facility] Last Admin: 02/06/17 13:11 Dose: 3 ml Benzocaine/Menthol (Cepacol Sore Throat) 1 sarah MT Q6H PRN PRN Reason: Sore Throat Last Admin: 02/06/17 10:19 Dose: 1 sarah Budesonide (Pulmicort Respules) 0.5 mg INH RQ12 [facility] Last Admin: 02/06/17 08:37 Dose: 0.5 mg Digoxin (Lanoxin) 0.125 mg PO DAILY@1800 [facility] Last Admin: 02/05/17 18:23 Dose: 0.125 mg Famotidine (Pepcid) 20 mg IVP DAILY [facility] Last Admin: 02/06/17 12:51 Dose: 20 mg Furosemide (Lasix) 40 mg PO DAILY [facility] Last Admin: 02/06/17 10:22 Dose: Not Given Guaifenesin (Mucinex La) 600 mg PO BID [facility] Last Admin: 02/06/17 12:51 Dose: 600 mg Prednisone (Prednisone Tab) 40 mg PO DAILY [facility] Last Admin: 02/06/17 10:19 Dose: 40 mg Rosuvastatin Calcium (Crestor) 10 mg PO HS [facility] Last Admin: 02/05/17 22:09 Dose: 10 mg Spironolactone (Aldactone) 25 mg PO DAILY [facility] Last Admin: 02/06/17 10:21 Dose: 25 mg Tiotropium Nordman (Spiriva) 18 mcg INH RQ24 [facility] Last Admin: 02/06/17 08:37 Dose: 18 mcg Warfarin Sodium (Coumadin) 2.5 mg PO 1800 [facility] Stop: 02/06/17 18:01 Warfarin Sodium (Coumadin) 3 mg PO 1800 [facility] Stop: 02/06/17 18:01 - Labs Labs: 02/04/17 16:46 02/04/17 16:46 PT 41.2 SECONDS (9.7-12.2) H* D 02/06/17 10:45 INR 3.4 02/06/17 10:45 APTT 37 SECONDS (21-34) H 02/03/17 13:50 Attending/Attestation - Attestation I have personally seen and examined this patient.: Yes I have fully participated in the care of the patient.: Yes I have reviewed all pertinent clinical information, including history, physical exam and plan: Yes Notes (Text): 02/06/17 17:24 Patient seen and examined with the resident. Reviewed resident note and plan of care. Agree with resident Findings and resident note and plan of care is discussed
[2017-02-06] MEDS: guaiFENesin 600 mg ER Tab PO SCH ×2 (12:51→17:34)
[2017-02-06] MEDS: Digoxin 125 mcg (0.125 mg) Tab PO SCH (17:34)
[2017-02-06] MEDS ORDERED: Oxycodone/Acetaminophen 5/325 mg Tab PO ONE (18:21)
[2017-02-07] MEDS: Albuterol-Ipratrop 3 mg / 0.5 (3 ml) UD INH SCH ×4 (01:08→19:15)
[2017-02-07] MEDS: Benzocaine/Menthol (Cepacol) Lozenge MT PRN (01:23)
[2017-02-07] MEDS: Budesonide 0.5 mg/2 ml Inhal Susp UD INH SCH ×2 (08:18→19:16)
[2017-02-07] MEDS: Tiotropium 18 mcg Cap For Inhalation INH SCH (08:18)
[2017-02-07] MEDS: guaiFENesin 600 mg ER Tab PO SCH ×2 (10:30→18:01)
[2017-02-07 17:36] LABS: CHLORIDE 95 mmol/L (98-107)
[2017-02-07 17:37] LABS: SODIUM 130 mmol/L (132-148)
[2017-02-07 17:39] LABS: GFR AFRICAN-AMERICAN > 60; POTASSIUM 5.3 mmol/L (3.6-5.2)
[2017-02-07 17:40] LABS: ALB/GLOB RATIO 1.2 (1.0-2.1); ALKALINE PHOSPHATASE 66 U/L (38-126); ALT/SGPT 51 U/L (21-72); AST/SGOT 54 U/L (17-59); BILIRUBIN,TOTAL 1.2 mg/dL (0.2-1.3); BLOOD UREA NITROGEN 28 mg/dL (9-20); CALCIUM 9.1 mg/dl (8.6-10.4); CARBON DIOXIDE 24 mmol/L (22-30); GLUCOSE,RANDOM 142 mg/dL (75-110); TOTAL PROTEIN 6.5 g/dL (6.3-8.3)
[2017-02-07] MEDS: Digoxin 125 mcg (0.125 mg) Tab PO SCH (18:01)
--- NOTE | 2017-02-07 19:59 | CP.PCM.PN ---
<AlfieOtoniel Fco - Last Filed: 02/07/17 20:10> Subjective - Date & Time of Evaluation Date of Evaluation: 02/07/17 Time of Evaluation: 14:00 - Subjective Subjective: Dr. Otoole service: Patient seen and examined in room. He just came out of the bathroom. He complains of chronic exertional dyspnea. He says he gets very easily short of breath. He denies fever chills, nausea, vomiting, palpitations, chest pain, diarrhea, lower leg swelling or pain. Objective - Vital Signs/Intake and Output Vital Signs (last 24 hours): Temp Pulse Resp BP Pulse Ox 97.9 F 60 24 91/55 L 98 02/07/17 16:00 02/07/17 16:00 02/07/17 16:00 02/07/17 16:00 02/07/17 16:00 Intake and Output: 02/07/17 02/08/17 18:59 06:59 Intake Total 800 Balance 800 - Medications Medications: Current Medications Albuterol/Ipratropium (Duoneb 3 Mg/0.5 Mg (3 Ml) Ud) 3 ml INH RQ6 [facility] Last Admin: 02/07/17 19:15 Dose: 3 ml Benzocaine/Menthol (Cepacol Sore Throat) 1 sarah MT Q6H PRN PRN Reason: Sore Throat Last Admin: 02/07/17 01:23 Dose: 1 sarah Budesonide (Pulmicort Respules) 0.5 mg INH RQ12 [facility] Last Admin: 02/07/17 19:16 Dose: 0.5 mg Digoxin (Lanoxin) 0.125 mg PO DAILY@1800 [facility] Last Admin: 02/07/17 18:01 Dose: 0.125 mg Famotidine (Pepcid) 20 mg IVP DAILY [facility] Last Admin: 02/07/17 10:30 Dose: 20 mg Furosemide (Lasix) 40 mg PO DAILY [facility] Last Admin: 02/07/17 10:30 Dose: 40 mg Guaifenesin (Mucinex La) 600 mg PO BID [facility] Last Admin: 02/07/17 18:01 Dose: 600 mg Prednisone (Prednisone Tab) 40 mg PO DAILY [facility] Last Admin: 02/07/17 10:30 Dose: 40 mg Rosuvastatin Calcium (Crestor) 10 mg PO HS [facility] Last Admin: 02/06/17 22:26 Dose: 10 mg Spironolactone (Aldactone) 25 mg PO DAILY [facility] Last Admin: 02/07/17 10:30 Dose: 25 mg Tiotropium [place] (Spiriva) 18 mcg INH RQ24 [facility] Last Admin: 02/07/17 08:18 Dose: 18 mcg Warfarin Sodium (Coumadin) 5 mg PO ONCE ONE Stop: 02/07/17 20:01 - Labs Labs: 02/04/17 16:46 02/07/17 17:11 PT 41.2 SECONDS (9.7-12.2) H* D 02/06/17 10:45 INR 3.4 02/06/17 10:45 APTT 37 SECONDS (21-34) H 02/03/17 13:50 - Constitutional Appears: Non-toxic, No Acute Distress - Head Exam Head Exam: NORMAL INSPECTION - Eye Exam Eye Exam: Normal appearance Pupil Exam: NORMAL ACCOMODATION - Respiratory Exam Respiratory Exam: Clear to Ausculation Bilateral. absent: Rales, Rhonchi, Wheezes - Cardiovascular Exam Cardiovascular Exam: Irregular Rhythm, REGULAR RHYTHM, +S1, +S2, Murmur. absent : Gallop, RRR, Rubs - GI/Abdominal Exam GI & Abdominal Exam: Soft, Normal Bowel Sounds. absent: Tenderness Assessment and Plan - Assessment and Plan (Free Text) Assessment: COPD (chronic obstructive pulmonary disease) 02/05: CT chest with high resolution - see above 02/01: Prednisone 40mg PO daily; Taper on discharge. Will require home oxygen. 01/29: Stop Solumedrol IVP; Start Prednisone 40mg PO daily; Taper on discharge. Will require home oxygen. -01/28: Solumedrol reduced to 40mg IVP Q12H. Prior to discharge, change Solumedrol -> Prednisone -01/19-01/28: Continue BIPAP, patient more compliant (sometimes refuses despite being SOB). -01/16: RAPID called due to SOB. BP 80/50's. Bolused 500cc NS. Ordered BIPAP and ABG, however patient refused. Placed back on NC 3L. -01/14-01/15: Patient complaining of SOB with exertion and orthopnea. Maintain Head of bed elevated 30 degrees. -01/13: PT session: 98% O2 at 2L at rest, 96% room air at rest sitting, 82% room air during ambulation, 88% at 2 liter ambulation. -01/12: Walked 20 steps today down [address], and patient became dizzy, SOB, and almost collapsed. - Consulted Pulmonology, Dr. Cobb, f/u recs -planning for home O2 - Aware of HR in 140's and SOB after eating and low levels of exertion. -f/u ABG (not collected) -LDH 654H -HIV - negative -persistent shortness of breath - Patient with long history of smoking most likely has underlying COPD. Nebulizer treatment. Inhaled steroids. Spiriva. PFT as out pt Systolic dysfunction with acute on chronic heart failure 02/01: pt at baseline - EF 10-15%, mechanical MV- no regurg, tricuspid regurg. see full report -Chest CT 01/22 - Cardiomegaly. Cardiac valve prosthesis. Left-sided AICD. Dense coronary artery calcifications. -Small consolidation (favored to reflect atelectasis rather than pneumonia) at the left lung base. -Bibasilar atelectasis. Small airways disease. Mild ground-glass and fine nodular opacities within the right upper lobe, possibly infectious or inflammatory. -7 mm left upper lobe pulmonary nodule. Guidelines by the Fleischner society (radiology 2005; 237:390 5-400) suggests that in patients with low risk for lung cancer, with nodules less than or equal to 8 mm in diameter should have follow-up in approximately 6-12 months. In patients with high-risk, including smokers, follow-up is recommended 3-6 months. Patient with a known malignancy for risk for metastases should receive 3 month follow-up. -Hepatic capsular calcification. -Numerous low-density lesions throughout the liver, possibly cysts. Decompressed gallbladder limits evaluation. Bilateral hypodense renal lesions. Right adrenal gland hypertrophy. 12 mm left adrenal gland nodule measures approximately 9 Hounsfield units, likely adenoma. -Consulted Cardiology, Dr. Arguelles - f/u recs -01/22: Lasix 40mg IVP daily, Spironolactone 25mg daily. CXR - no interval pathology change. -01/19: HOLD LASIX FOR 1 TO 2 DAYS AND CONT MUCINEX. PT PRERENAL AND APPEARS DRY. ON BOTH LASIX AND SPIRONOLACTONE. -SOB APPEARS TO BE SECONDARY TO PULM ETIOLOGY. IMPROVES WITH NEBS. PT WITH RHONCHI B/L. MAY BENEFIT FROM PULM TOILET. -will attempt to obtain company of [facility] for interrogation. -likely deconditioned. will benefit from rehab -01/16: RAPID called due to SOB. BP 80/50's. Bolused 500cc NS. Ordered BIPAP and ABG, however patient refused. Placed back on NC 3L. ProBNP 4070H (less than # on admission) and KACY negative. -01/16: Decrease to Lasix 40mg PO daily (was BID). Admit to telemetry, BNP 4560 on admission Digoxin 0.125mg Lisinopril 10mg daily Aldactone 25mg PO Daily patient with AICD, will check echo to determine EF CXR 01/03: mild cardiomegaly, mild pulmonary venous congestion. s/p sternotomy, aortic valve replacement, AICD H/O mitral valve replacement with mechanical valve 02/07: INR 3.4, coninue Coumadin and monitor INR. Patient will be discharged when able. Previous note Cardiac valve replacement 6-7yrs ago Consulted Cardiology, Dr. Arguelles - f/u recs -echocardiogram reviewed. valve leaflets are opening and functional. There is no signficant gradient across the valve. -recommend INR 2.5 to 3.5. STOP Lovenox 3/5 STOP Heparin Drip - cardiac protocol, with bolus (because patient is refusing blood draws) 01/07: INR 1.3 01/08: INR refused, Coumadin 10mg 01/09: INR 1.5, Coumadin 10mg 01/10: INR 2.0, Coumadin 10mg 01/11: INR 2.4, Coumadin 7.5mg; patient received one more dose of Lovenox 80mg SC today, now discontinued as bridge complete. 01/12: INR 2.5, Coumadin 7.5mg 01/13: INR 3.1, Coumadin 5mg 01/14: INR 3.7, Coumadin 5mg (stopped by pharmacy) 01/15: INR 2.8, Coumadin 5mg 01/16: INR 2.6, Coumadin 4mg 01/17: INR 2.7, Coumadin 4 mg 01/18: INR 2.3 Coumadin 4mg 01/19: INR 2.1, Coumadin 6mg 01/20: INR 2.6, Coumadin 5mg 01/21: INR 2.6, Coumadin 5mg 01/22: INR 2.5, Coumadin 6mg 01/23: INR 2.9, Coumadin 6mg, 01/24: INR 3.6, Coumadin 6mg, f/u INR 01/25: HELD Coumadin, Pt. denied blood work today 01/26: HELD Coumadin, Pt. denied blood work today 01/27: INR 1.3, Coumadin 7mg, f/u 01/28: INR 1.5, Coumadin 7mg, f/u INR 01/29: INR 2.4, Coumadin 7mg, f/u INR 01/30: INR 3.3, Coumadin 6mg, f/u INR 01/31: INR 4.1 Hold Coumadin, f/u INR 02/01: INR 2.8, Coumadin 5mg, f/u INR 02/03: INR 2.4, Coumadin 6mg, f/u INR 02/04: INR 3.1, Coumadin 5mg, f/u INR 02/05: INR 2.9, Coumadin 6mg, f/u INR 02/06: INR 3.4, Coumadin 5.5mg Chronic atrial fibrillation Consulted Cardiology, Dr. Arguelles - f/u recs -Rate controlled -echocardiogram reviewed. valve leaflets are opening and functional. There is no signficant gradient across the valve. -recommend INR 2.5 to 3.5. -See PT/INR trends above Coumadin as above STOP Lovenox 01/11 Cough, acute -Mucinex 600mg PO BID -01/28: cough intermittent -01/24 does not complain of cough -01/19-01/22: Persists. Non-productive. Continue Mucinex. -01/15: patient developed productive cough with yellow sputum today. CAD (coronary artery disease) Consulted Cardiology, Dr. Arguelles - f/u recs -Aware of HR in 140's and SOB after eating and low levels of exertion. -unknown graft status. no evidence of ischemia at present -No current angina History of OK (myocardial infarction) HOLD Crestor 10mg PO HS (last dose 01/18- due to elevated LFTs) ROMIs negative x3 EKG paced Denies chest pain Transaminitis, acute 01/31: AST/ALT normalized; consider resuming crestor. 01/30 patient refusing labs. will re-attempt 01/28-01/29: Improving. hold crestor (since 01/18) 01/27: AST 37 / ALT 124 - continue to hold crestor. 01/25-01/26: Patient refused blood work 01/24: 51/164 AST / ALT down trending 01/22-01/23: AST / ALT down trending - continue to hold Crestor 01/21: AST 57 / ALT 188, decreasing. HOLD Crestor 10mg PO HS (last dose 01/18- due to elevated LFTs) 01/20: AST 75 / ALT 205 01/19: AST 70 / ALT 201 - increasing -> hold crestor for 2 nights 01/19, 01/20 01/16: AST 90 / ALT 164 - increasing -> hold Crestor tonight. - AST 77 / ALT 98 -> previously normal. - Continue to monitor Electrolyte Imbalance 01/30 patient refusing labs, will re-attempt 01/21-01/29: Hyponatremia, stable Hyperkalemia - resolved Hypokalemia, Tachycardia HR grossly WNL, continue to monitor 01/20-01/23: HR WNL 01/13: Patient becomes SOB very easily, desaturating to 82% while ambulating. Anytime he eats or gets up, HR climbs into 140's Continue Digoxin 0.125mg EKG in ER: sinus tachycardia at 100, paced, incomplete RBBB Discontinued cardizem drip of 5mg/h started in the ER Lower extremity edema LE Duplex - negative. see full report. Prophylactic measure Coumadin as above. protonix 40mg daily SCD contraindicated due to LE edema D/C when bed available <Johnnie Otoole Jr. - Last Filed: 02/08/17 15:09> Objective - Vital Signs/Intake and Output Vital Signs (last 24 hours): Temp Pulse Resp BP Pulse Ox 97.8 F 72 20 123/76 96 02/08/17 07:20 02/08/17 08:00 02/08/17 07:20 02/08/17 09:52 02/08/17 07:20 Intake and Output: 02/08/17 02/08/17 06:59 18:59 Intake Total 640 Output Total 500 Balance 140 - Medications Medications: Current Medications Albuterol/Ipratropium (Duoneb 3 Mg/0.5 Mg (3 Ml) Ud) 3 ml INH RQ6 [facility] Last Admin: 02/08/17 13:13 Dose: 3 ml Benzocaine/Menthol (Cepacol Sore Throat) 1 sarah MT Q6H PRN PRN Reason: Sore Throat Last Admin: 02/07/17 01:23 Dose: 1 sarah Budesonide (Pulmicort Respules) 0.5 mg INH RQ12 [facility] Last Admin: 02/08/17 07:42 Dose: 0.5 mg Digoxin (Lanoxin) 0.125 mg PO DAILY@1800 [facility] Last Admin: 02/07/17 18:01 Dose: 0.125 mg Famotidine (Pepcid) 20 mg IVP DAILY [facility] Last Admin: 02/08/17 09:53 Dose: 20 mg Furosemide (Lasix) 40 mg PO DAILY [facility] Last Admin: 02/08/17 09:52 Dose: 40 mg Guaifenesin (Mucinex La) 600 mg PO BID [facility] Last Admin: 02/08/17 09:53 Dose: 600 mg Prednisone (Prednisone Tab) 40 mg PO DAILY [facility] Last Admin: 02/08/17 09:53 Dose: 40 mg Rosuvastatin Calcium (Crestor) 10 mg PO HS [facility] Last Admin: 02/07/17 22:04 Dose: 10 mg Spironolactone (Aldactone) 25 mg PO DAILY [facility] Last Admin: 02/08/17 09:52 Dose: 25 mg Tiotropium [place] (Spiriva) 18 mcg INH RQ24 [facility] Last Admin: 02/08/17 07:42 Dose: 18 mcg - Labs Labs: 02/04/17 16:46 02/07/17 17:11 PT 41.2 SECONDS (9.7-12.2) H* D 02/06/17 10:45 INR 3.4 02/06/17 10:45 APTT 37 SECONDS (21-34) H 02/03/17 13:50 Attending/Attestation - Attestation I have personally seen and examined this patient.: Yes I have fully participated in the care of the patient.: Yes I have reviewed all pertinent clinical information, including history, physical exam and plan: Yes Notes (Text): 02/08/17 15:09 Patient seen and examined. Agree with resident note and plan of care
[2017-02-07] MEDS ORDERED: Sod Polystyrene Sulf 15 gm/60 ml Oral Susp PO STA (20:00)
--- NOTE | 2017-02-08 00:46 | CP.PCM.PN ---
<Wale Castillo - Last Filed: 02/08/17 00:41> Subjective - Date & Time of Evaluation Date of Evaluation: 02/08/17 Time of Evaluation: 00:41 - Subjective Subjective: PGY-[address] Otoole's service Pt seen and examined at bedside. Pt states that he has some chest wall tenderness over rib 2 on the right side. He admits to his chronic cough making it worse. Denies any fevers, chills, palpitations, nausea or vomiting. Objective - Vital Signs/Intake and Output Vital Signs (last 24 hours): Temp Pulse Resp BP Pulse Ox 97.9 F 60 24 91/55 L 98 02/07/17 16:00 02/07/17 16:00 02/07/17 16:00 02/07/17 16:00 02/07/17 16:00 Intake and Output: 02/07/17 02/08/17 18:59 06:59 Intake Total 800 400 Balance 800 400 - Medications Medications: Current Medications Albuterol/Ipratropium (Duoneb 3 Mg/0.5 Mg (3 Ml) Ud) 3 ml INH RQ6 [facility] Last Admin: 02/07/17 19:15 Dose: 3 ml Benzocaine/Menthol (Cepacol Sore Throat) 1 sarah MT Q6H PRN PRN Reason: Sore Throat Last Admin: 02/07/17 01:23 Dose: 1 sarah Budesonide (Pulmicort Respules) 0.5 mg INH RQ12 [facility] Last Admin: 02/07/17 19:16 Dose: 0.5 mg Digoxin (Lanoxin) 0.125 mg PO DAILY@1800 [facility] Last Admin: 02/07/17 18:01 Dose: 0.125 mg Famotidine (Pepcid) 20 mg IVP DAILY [facility] Last Admin: 02/07/17 10:30 Dose: 20 mg Furosemide (Lasix) 40 mg PO DAILY [facility] Last Admin: 02/07/17 10:30 Dose: 40 mg Guaifenesin (Mucinex La) 600 mg PO BID [facility] Last Admin: 02/07/17 18:01 Dose: 600 mg Prednisone (Prednisone Tab) 40 mg PO DAILY [facility] Last Admin: 02/07/17 10:30 Dose: 40 mg Rosuvastatin Calcium (Crestor) 10 mg PO HS [facility] Last Admin: 02/07/17 22:04 Dose: 10 mg Spironolactone (Aldactone) 25 mg PO DAILY [facility] Last Admin: 02/07/17 10:30 Dose: 25 mg Tiotropium Dazey (Spiriva) 18 mcg INH RQ24 [facility] Last Admin: 02/07/17 08:18 Dose: 18 mcg - Labs Labs: 02/04/17 16:46 02/07/17 17:11 PT 41.2 SECONDS (9.7-12.2) H* D 02/06/17 10:45 INR 3.4 02/06/17 10:45 APTT 37 SECONDS (21-34) H 02/03/17 13:50 - Constitutional Appears: Non-toxic, No Acute Distress, Chronically Ill - Head Exam Head Exam: ATRAUMATIC, NORMOCEPHALIC - Respiratory Exam Respiratory Exam: Chest Wall Tenderness (point tenderness over 2nd rib on right) , Rhonchi, NORMAL BREATHING PATTERN - Cardiovascular Exam Cardiovascular Exam: +S1, +S2 - GI/Abdominal Exam GI & Abdominal Exam: Soft, Normal Bowel Sounds - Neurological Exam Neurological Exam: Alert, Awake - Skin Skin Exam: Dry, Warm Assessment and Plan - Assessment and Plan (Free Text) Assessment: - [facility] will accept pt, waiting on pt's to confirm address that pt will be discharged home to. - Pt not a safe discharge to home due to functional status Numbness and tingling - left sided - resolved - CT head - normal head CT Shortness of breath - secondary to chronic COPD vs pneumonia vs malignancy - CT Chest HR - No definite CT evidence of interstitial lung disease. Cardiomegaly and [id number] pulmonary vascular congestion. Interval appearance of new round opacities/ nodules in the right upper lobe and left lower lobe since the previous study. The differential diagnosis includes multifocal pneumonia. The possibility of neoplasm is not totally excluded. Follow-up reassessment is recommended. Otherwise no significant interval change since the previous study dated 01/22/2017. COPD (chronic obstructive pulmonary disease) 02/05: CT chest with high resolution - see above 02/01: Prednisone 40mg PO daily; Taper on discharge. Will require home oxygen. 01/29: Stop Solumedrol IVP; Start Prednisone 40mg PO daily; Taper on discharge. Will require home oxygen. -01/28: Solumedrol reduced to 40mg IVP Q12H. Prior to discharge, change Solumedrol -> Prednisone -01/19-01/28: Continue BIPAP, patient more compliant (sometimes refuses despite being SOB). -01/16: RAPID called due to SOB. BP 80/50's. Bolused 500cc NS. Ordered BIPAP and ABG, however patient refused. Placed back on NC 3L. -01/14-01/15: Patient complaining of SOB with exertion and orthopnea. Maintain Head of bed elevated 30 degrees. -01/13: PT session: 98% O2 at 2L at rest, 96% room air at rest sitting, 82% room air during ambulation, 88% at 2 liter ambulation. -01/12: Walked 20 steps today down [address], and patient became dizzy, SOB, and almost collapsed. - Consulted Pulmonology, Dr. Cobb, f/u recs -planning for home O2 - Aware of HR in 140's and SOB after eating and low levels of exertion. -f/u ABG (not collected) -LDH 654H -HIV - negative -persistent shortness of breath - Patient with long history of smoking most likely has underlying COPD. Nebulizer treatment. Inhaled steroids. Spiriva. PFT as out pt Systolic dysfunction with acute on chronic heart failure 02/01: pt at baseline - EF 10-15%, mechanical MV- no regurg, tricuspid regurg. see full report -Chest CT 01/22 - Cardiomegaly. Cardiac valve prosthesis. Left-sided AICD. Dense coronary artery calcifications. -Small consolidation (favored to reflect atelectasis rather than pneumonia) at the left lung base. -Bibasilar atelectasis. Small airways disease. Mild ground-glass and fine nodular opacities within the right upper lobe, possibly infectious or inflammatory. -7 mm left upper lobe pulmonary nodule. Guidelines by the Fleischner society (radiology 2005; 237:390 5-400) suggests that in patients with low risk for lung cancer, with nodules less than or equal to 8 mm in diameter should have follow-up in approximately 6-12 months. In patients with high-risk, including smokers, follow-up is recommended 3-6 months. Patient with a known malignancy for risk for metastases should receive 3 month follow-up. -Hepatic capsular calcification. -Numerous low-density lesions throughout the liver, possibly cysts. Decompressed gallbladder limits evaluation. Bilateral hypodense renal lesions. Right adrenal gland hypertrophy. 12 mm left adrenal gland nodule measures approximately 9 Hounsfield units, likely adenoma. -Consulted Cardiology, Dr. Arguelles - f/u recs -01/22: Lasix 40mg IVP daily, Spironolactone 25mg daily. CXR - no interval pathology change. -01/19: HOLD LASIX FOR 1 TO 2 DAYS AND CONT MUCINEX. PT PRERENAL AND APPEARS DRY. ON BOTH LASIX AND SPIRONOLACTONE. -SOB APPEARS TO BE SECONDARY TO PULM ETIOLOGY. IMPROVES WITH NEBS. PT WITH RHONCHI B/L. MAY BENEFIT FROM PULM TOILET. -will attempt to obtain company of [facility] for interrogation. -likely deconditioned. will benefit from rehab -01/16: RAPID called due to SOB. BP 80/50's. Bolused 500cc NS. Ordered BIPAP and ABG, however patient refused. Placed back on NC 3L. ProBNP 4070H (less than # on admission) and KACY negative. -01/16: Decrease to Lasix 40mg PO daily (was BID). Admit to telemetry, BNP 4560 on admission Digoxin 0.125mg Lisinopril 10mg daily Aldactone 25mg PO Daily patient with AICD, will check echo to determine EF CXR 01/03: mild cardiomegaly, mild pulmonary venous congestion. s/p sternotomy, aortic valve replacement, AICD H/O mitral valve replacement with mechanical valve 02/07: INR 3.4, coninue Coumadin and monitor INR. Patient will be discharged when able. Previous note Cardiac valve replacement 6-7yrs ago Consulted Cardiology, Dr. Arguelles - f/u recs -echocardiogram reviewed. valve leaflets are opening and functional. There is no signficant gradient across the valve. -recommend INR 2.5 to 3.5. STOP Lovenox 3/5 STOP Heparin Drip - cardiac protocol, with bolus (because patient is refusing blood draws) 01/07: INR 1.3 32: INR refused, Coumadin 10mg 01/09: INR 1.5, Coumadin 10mg 3: INR 2.0, Coumadin 10mg 01/11: INR 2.4, Coumadin 7.5mg; patient received one more dose of Lovenox 80mg SC today, now discontinued as bridge complete. 01/12: INR 2.5, Coumadin 7.5mg 01/13: INR 3.1, Coumadin 5mg 01/14: INR 3.7, Coumadin 5mg (stopped by pharmacy) 01/15: INR 2.8, Coumadin 5mg 01/16: INR 2.6, Coumadin 4mg 01/17: INR 2.7, Coumadin 4 mg 01/18: INR 2.3 Coumadin 4mg 01/19: INR 2.1, Coumadin 6mg 01/20: INR 2.6, Coumadin 5mg 01/21: INR 2.6, Coumadin 5mg 01/22: INR 2.5, Coumadin 6mg 01/23: INR 2.9, Coumadin 6mg, 01/24: INR 3.6, Coumadin 6mg, f/u INR 01/25: HELD Coumadin, Pt. denied blood work today 01/26: HELD Coumadin, Pt. denied blood work today 01/27: INR 1.3, Coumadin 7mg, f/u 01/28: INR 1.5, Coumadin 7mg, f/u INR 01/29: INR 2.4, Coumadin 7mg, f/u INR 01/30: INR 3.3, Coumadin 6mg, f/u INR 01/31: INR 4.1 Hold Coumadin, f/u INR 02/01: INR 2.8, Coumadin 5mg, f/u INR 02/03: INR 2.4, Coumadin 6mg, f/u INR 02/04: INR 3.1, Coumadin 5mg, f/u INR 02/05: INR 2.9, Coumadin 6mg, f/u INR 02/06: INR 3.4, Coumadin 5.5mg f/u INR 02/07: Coumadin 5 mg, f/u INR Chronic atrial fibrillation Consulted Cardiology, Dr. Arguelles - f/u recs -Rate controlled -echocardiogram reviewed. valve leaflets are opening and functional. There is no signficant gradient across the valve. -recommend INR 2.5 to 3.5. -See PT/INR trends above Coumadin as above STOP Lovenox 3/5 Cough, acute -Mucinex 600mg PO BID -01/28: cough intermittent -01/24 does not complain of cough -01/19-01/22: Persists. Non-productive. Continue Mucinex. -01/15: patient developed productive cough with yellow sputum today. CAD (coronary artery disease) Consulted Cardiology, Dr. Arguelles - f/u recs -Aware of HR in 140's and SOB after eating and low levels of exertion. -unknown graft status. no evidence of ischemia at present -No current angina History of AL (myocardial infarction) HOLD Crestor 10mg PO HS (last dose 01/18- due to elevated LFTs) ROMIs negative x3 EKG paced Denies chest pain Transaminitis, acute 01/31: AST/ALT normalized; consider resuming crestor. 01/30 patient refusing labs. will re-attempt 01/28-01/29: Improving. hold crestor (since 01/18) 01/27: AST 37 / ALT 124 - continue to hold crestor. 01/25-01/26: Patient refused blood work 01/24: 51/164 AST / ALT down trending 01/22-01/23: AST / ALT down trending - continue to hold Crestor 01/21: AST 57 / ALT 188, decreasing. HOLD Crestor 10mg PO HS (last dose 01/18- due to elevated LFTs) 01/20: AST 75 / ALT 205 01/19: AST 70 / ALT 201 - increasing -> hold crestor for 2 nights 01/19, 01/20 01/16: AST 90 / ALT 164 - increasing -> hold Crestor tonight. - AST 77 / ALT 98 -> previously normal. - Continue to monitor Electrolyte Imbalance 01/30 patient refusing labs, will re-attempt 01/21-01/29: Hyponatremia, stable Hyperkalemia - resolved Hypokalemia, Tachycardia HR grossly WNL, continue to monitor 01/20-01/23: HR WNL 01/13: Patient becomes SOB very easily, desaturating to 82% while ambulating. Anytime he eats or gets up, HR climbs into 140's Continue Digoxin 0.125mg EKG in ER: sinus tachycardia at 100, paced, incomplete RBBB Discontinued cardizem drip of 5mg/h started in the ER Lower extremity edema LE Duplex - negative. see full report. Prophylactic measure Coumadin as above. protonix 40mg daily SCD contraindicated due to LE edema D/C when bed available <Johnnie Otoole Jr. - Last Filed: 02/08/17 15:11> Objective - Vital Signs/Intake and Output Vital Signs (last 24 hours): Temp Pulse Resp BP Pulse Ox 97.8 F 72 20 123/76 96 02/08/17 07:20 02/08/17 08:00 02/08/17 07:20 02/08/17 09:52 02/08/17 07:20 Intake and Output: 02/08/17 02/08/17 06:59 18:59 Intake Total 640 Output Total 500 Balance 140 - Medications Medications: Current Medications Albuterol/Ipratropium (Duoneb 3 Mg/0.5 Mg (3 Ml) Ud) 3 ml INH RQ6 [facility] Last Admin: 02/08/17 13:13 Dose: 3 ml Benzocaine/Menthol (Cepacol Sore Throat) 1 sarah MT Q6H PRN PRN Reason: Sore Throat Last Admin: 02/07/17 01:23 Dose: 1 sarah Budesonide (Pulmicort Respules) 0.5 mg INH RQ12 [facility] Last Admin: 02/08/17 07:42 Dose: 0.5 mg Digoxin (Lanoxin) 0.125 mg PO DAILY@1800 [facility] Last Admin: 02/07/17 18:01 Dose: 0.125 mg Famotidine (Pepcid) 20 mg IVP DAILY [facility] Last Admin: 02/08/17 09:53 Dose: 20 mg Furosemide (Lasix) 40 mg PO DAILY [facility] Last Admin: 02/08/17 09:52 Dose: 40 mg Guaifenesin (Mucinex La) 600 mg PO BID [facility] Last Admin: 02/08/17 09:53 Dose: 600 mg Prednisone (Prednisone Tab) 40 mg PO DAILY [facility] Last Admin: 02/08/17 09:53 Dose: 40 mg Rosuvastatin Calcium (Crestor) 10 mg PO HS [facility] Last Admin: 02/07/17 22:04 Dose: 10 mg Spironolactone (Aldactone) 25 mg PO DAILY [facility] Last Admin: 02/08/17 09:52 Dose: 25 mg Tiotropium Dazey (Spiriva) 18 mcg INH RQ24 [facility] Last Admin: 02/08/17 07:42 Dose: 18 mcg - Labs Labs: 02/04/17 16:46 02/07/17 17:11 PT 41.2 SECONDS (9.7-12.2) H* D 02/06/17 10:45 INR 3.4 02/06/17 10:45 APTT 37 SECONDS (21-34) H 02/03/17 13:50 Attending/Attestation - Attestation I have personally seen and examined this patient.: Yes I have fully participated in the care of the patient.: Yes I have reviewed all pertinent clinical information, including history, physical exam and plan: Yes Notes (Text): 02/08/17 15:11 Patient seen and examined. Agree with resident note and plan of care
[2017-02-08] MEDS: Albuterol-Ipratrop 3 mg / 0.5 (3 ml) UD INH SCH ×4 (01:46→19:55)
[2017-02-08] MEDS: Budesonide 0.5 mg/2 ml Inhal Susp UD INH SCH ×2 (07:42→19:55)
[2017-02-08] MEDS: Tiotropium 18 mcg Cap For Inhalation INH SCH (07:42)
[2017-02-08] MEDS: guaiFENesin 600 mg ER Tab PO SCH ×2 (09:53→17:59)
[2017-02-08] MEDS: Digoxin 125 mcg (0.125 mg) Tab PO SCH (17:59)
[2017-02-09] MEDS: Albuterol-Ipratrop 3 mg / 0.5 (3 ml) UD INH SCH ×4 (02:00→19:47)
[2017-02-09] MEDS: Budesonide 0.5 mg/2 ml Inhal Susp UD INH SCH ×2 (07:58→19:48)
[2017-02-09] MEDS: Tiotropium 18 mcg Cap For Inhalation INH SCH (07:58)
[2017-02-09] MEDS: guaiFENesin 600 mg ER Tab PO SCH ×2 (10:11→17:37)
--- NOTE | 2017-02-09 11:27 | CP.PCM.PN ---
<Wale Castillo - Last Filed: 02/09/17 11:24> Subjective - Date & Time of Evaluation Date of Evaluation: 02/09/17 Time of Evaluation: 11:24 - Subjective Subjective: PGY-[address] Otoole Pt seen and examined at bedside. There was no overnight events per staff. Pt continues to have sob and cough. Denies any fevers, chills, chest pain, nausea or vomiting. Objective - Vital Signs/Intake and Output Vital Signs (last 24 hours): Temp Pulse Resp BP Pulse Ox 98 F 71 20 123/56 L 99 02/09/17 07:25 02/09/17 07:25 02/09/17 07:25 02/09/17 10:11 02/09/17 07:25 Intake and Output: 02/09/17 02/09/17 06:59 18:59 Intake Total 400 Output Total 550 Balance -150 - Medications Medications: Current Medications Albuterol/Ipratropium (Duoneb 3 Mg/0.5 Mg (3 Ml) Ud) 3 ml INH RQ6 [facility] Last Admin: 02/09/17 07:58 Dose: 3 ml Benzocaine/Menthol (Cepacol Sore Throat) 1 sarah MT Q6H PRN PRN Reason: Sore Throat Last Admin: 02/07/17 01:23 Dose: 1 sarah Budesonide (Pulmicort Respules) 0.5 mg INH RQ12 [facility] Last Admin: 02/09/17 07:58 Dose: 0.5 mg Digoxin (Lanoxin) 0.125 mg PO DAILY@1800 [facility] Last Admin: 02/08/17 17:59 Dose: 0.125 mg Famotidine (Pepcid) 20 mg IVP DAILY [facility] Last Admin: 02/09/17 10:11 Dose: 20 mg Furosemide (Lasix) 40 mg PO DAILY [facility] Last Admin: 02/09/17 10:11 Dose: 40 mg Guaifenesin (Mucinex La) 600 mg PO BID [facility] Last Admin: 02/09/17 10:11 Dose: 600 mg Prednisone (Prednisone Tab) 40 mg PO DAILY [facility] Last Admin: 02/09/17 10:11 Dose: 40 mg Rosuvastatin Calcium (Crestor) 10 mg PO HS [facility] Last Admin: 02/08/17 22:34 Dose: 10 mg Spironolactone (Aldactone) 25 mg PO DAILY [facility] Last Admin: 02/09/17 10:11 Dose: 25 mg Tiotropium [place] (Spiriva) 18 mcg INH RQ24 [facility] Last Admin: 02/09/17 07:58 Dose: 18 mcg - Labs Labs: 02/04/17 16:46 02/07/17 17:11 PT 41.2 SECONDS (9.7-12.2) H* D 02/06/17 10:45 INR 3.4 02/06/17 10:45 APTT 37 SECONDS (21-34) H 02/03/17 13:50 - Constitutional Appears: No Acute Distress, Chronically Ill - Head Exam Head Exam: ATRAUMATIC, NORMOCEPHALIC - ENT Exam ENT Exam: Mucous Membranes Moist - Respiratory Exam Respiratory Exam: Rhonchi, NORMAL BREATHING PATTERN - Cardiovascular Exam Cardiovascular Exam: +S1, +S2 - GI/Abdominal Exam GI & Abdominal Exam: Soft, Normal Bowel Sounds - Neurological Exam Neurological Exam: Alert, Awake - Skin Skin Exam: Dry, Warm Assessment and Plan - Assessment and Plan (Free Text) Assessment: - [facility] will accept pt, waiting on pt's to confirm address that pt will be discharged home to. - Pt not a safe discharge to home due to functional status Numbness and tingling - left sided - resolved - CT head - normal head CT Shortness of breath - secondary to chronic COPD vs pneumonia vs malignancy - CT Chest HR - No definite CT evidence of interstitial lung disease. Cardiomegaly and [id number] pulmonary vascular congestion. Interval appearance of new round opacities/ nodules in the right upper lobe and left lower lobe since the previous study. The differential diagnosis includes multifocal pneumonia. The possibility of neoplasm is not totally excluded. Follow-up reassessment is recommended. Otherwise no significant interval change since the previous study dated 01/22/2017. COPD (chronic obstructive pulmonary disease) 02/05: CT chest with high resolution - see above 02/01: Prednisone 40mg PO daily; Taper on discharge. Will require home oxygen. 01/29: Stop Solumedrol IVP; Start Prednisone 40mg PO daily; Taper on discharge. Will require home oxygen. -01/28: Solumedrol reduced to 40mg IVP Q12H. Prior to discharge, change Solumedrol -> Prednisone -01/19-01/28: Continue BIPAP, patient more compliant (sometimes refuses despite being SOB). -01/16: RAPID called due to SOB. BP 80/50's. Bolused 500cc NS. Ordered BIPAP and ABG, however patient refused. Placed back on NC 3L. -01/14-01/15: Patient complaining of SOB with exertion and orthopnea. Maintain Head of bed elevated 30 degrees. -01/13: PT session: 98% O2 at 2L at rest, 96% room air at rest sitting, 82% room air during ambulation, 88% at 2 liter ambulation. -01/12: Walked 20 steps today down bruno, and patient became dizzy, SOB, and almost collapsed. - Consulted Pulmonology, Dr. Cobb, f/u recs -planning for home O2 - Aware of HR in 140's and SOB after eating and low levels of exertion. -f/u ABG (not collected) -LDH 654H -HIV - negative -persistent shortness of breath - Patient with long history of smoking most likely has underlying COPD. Nebulizer treatment. Inhaled steroids. Spiriva. PFT as out pt Systolic dysfunction with acute on chronic heart failure 02/01: pt at baseline - EF 10-15%, mechanical MV- no regurg, tricuspid regurg. see full report -Chest CT 01/22 - Cardiomegaly. Cardiac valve prosthesis. Left-sided AICD. Dense coronary artery calcifications. -Small consolidation (favored to reflect atelectasis rather than pneumonia) at the left lung base. -Bibasilar atelectasis. Small airways disease. Mild ground-glass and fine nodular opacities within the right upper lobe, possibly infectious or inflammatory. -7 mm left upper lobe pulmonary nodule. Guidelines by the Fleischner society (radiology 2005; 237:390 5-400) suggests that in patients with low risk for lung cancer, with nodules less than or equal to 8 mm in diameter should have follow-up in approximately 6-12 months. In patients with high-risk, including smokers, follow-up is recommended 3-6 months. Patient with a known malignancy for risk for metastases should receive 3 month follow-up. -Hepatic capsular calcification. -Numerous low-density lesions throughout the liver, possibly cysts. Decompressed gallbladder limits evaluation. Bilateral hypodense renal lesions. Right adrenal gland hypertrophy. 12 mm left adrenal gland nodule measures approximately 9 Hounsfield units, likely adenoma. -Consulted Cardiology, Dr. Arguelles - f/u recs -01/22: Lasix 40mg IVP daily, Spironolactone 25mg daily. CXR - no interval pathology change. -01/19: HOLD LASIX FOR 1 TO 2 DAYS AND CONT MUCINEX. PT PRERENAL AND APPEARS DRY. ON BOTH LASIX AND SPIRONOLACTONE. -SOB APPEARS TO BE SECONDARY TO PULM ETIOLOGY. IMPROVES WITH NEBS. PT WITH RHONCHI B/L. MAY BENEFIT FROM PULM TOILET. -will attempt to obtain company of [facility] for interrogation. -likely deconditioned. will benefit from rehab -01/16: RAPID called due to SOB. BP 80/50's. Bolused 500cc NS. Ordered BIPAP and ABG, however patient refused. Placed back on NC 3L. ProBNP 4070H (less than # on admission) and KACY negative. -01/16: Decrease to Lasix 40mg PO daily (was BID). Admit to telemetry, BNP 4560 on admission Digoxin 0.125mg Lisinopril 10mg daily Aldactone 25mg PO Daily patient with AICD, will check echo to determine EF CXR 01/03: mild cardiomegaly, mild pulmonary venous congestion. s/p sternotomy, aortic valve replacement, AICD H/O mitral valve replacement with mechanical valve 02/09: INR pending, coninue Coumadin and monitor INR. Patient will be discharged when able. Previous note Cardiac valve replacement 6-7yrs ago Consulted Cardiology, Dr. Arguelles - f/u recs -echocardiogram reviewed. valve leaflets are opening and functional. There is no signficant gradient across the valve. -recommend INR 2.5 to 3.5. STOP Lovenox 3/5 STOP Heparin Drip - cardiac protocol, with bolus (because patient is refusing blood draws) Chronic atrial fibrillation Consulted Cardiology, Dr. Arguelles - f/u recs -Rate controlled -echocardiogram reviewed. valve leaflets are opening and functional. There is no signficant gradient across the valve. -recommend INR 2.5 to 3.5. -See PT/INR trends above Coumadin as above STOP Lovenox 3/5 Cough, acute -Mucinex 600mg PO BID -01/28: cough intermittent -01/24 does not complain of cough -01/19-01/22: Persists. Non-productive. Continue Mucinex. -01/15: patient developed productive cough with yellow sputum today. CAD (coronary artery disease) Consulted Cardiology, Dr. Arguelles - f/u recs -Aware of HR in 140's and SOB after eating and low levels of exertion. -unknown graft status. no evidence of ischemia at present -No current angina History of SD (myocardial infarction) HOLD Crestor 10mg PO HS (last dose 01/18- due to elevated LFTs) ROMIs negative x3 EKG paced Denies chest pain Transaminitis, acute 01/31: AST/ALT normalized; consider resuming crestor. 01/30 patient refusing labs. will re-attempt 01/28-01/29: Improving. hold crestor (since 01/18) 01/27: AST 37 / ALT 124 - continue to hold crestor. 01/25-01/26: Patient refused blood work 01/24: 51/164 AST / ALT down trending 01/22-01/23: AST / ALT down trending - continue to hold Crestor 01/21: AST 57 / ALT 188, decreasing. HOLD Crestor 10mg PO HS (last dose 01/18- due to elevated LFTs) 01/20: AST 75 / ALT 205 01/19: AST 70 / ALT 201 - increasing -> hold crestor for 2 nights 01/19, 01/20 01/16: AST 90 / ALT 164 - increasing -> hold Crestor tonight. - AST 77 / ALT 98 -> previously normal. - Continue to monitor Electrolyte Imbalance 01/30 patient refusing labs, will re-attempt 01/21-01/29: Hyponatremia, stable Hyperkalemia - resolved Hypokalemia, Tachycardia HR grossly WNL, continue to monitor 01/20-01/23: HR WNL 01/13: Patient becomes SOB very easily, desaturating to 82% while ambulating. Anytime he eats or gets up, HR climbs into 140's Continue Digoxin 0.125mg EKG in ER: sinus tachycardia at 100, paced, incomplete RBBB Discontinued cardizem drip of 5mg/h started in the ER Lower extremity edema LE Duplex - negative. see full report. Prophylactic measure Coumadin as above. protonix 40mg daily SCD contraindicated due to LE edema D/C when bed available <Jonhnie Otoole Jr. - Last Filed: 02/10/17 11:11> Objective - Vital Signs/Intake and Output Vital Signs (last 24 hours): Temp Pulse Resp BP Pulse Ox 97.3 F L 107 H 20 105/59 L 100 02/10/17 07:30 02/10/17 08:00 02/10/17 07:30 02/10/17 09:59 02/10/17 07:30 Intake and Output: 02/10/17 02/10/17 06:59 18:59 Intake Total 1150 Output Total 900 Balance 250 - Medications Medications: Current Medications Albuterol/Ipratropium (Duoneb 3 Mg/0.5 Mg (3 Ml) Ud) 3 ml INH RQ6 [facility] Last Admin: 02/10/17 08:14 Dose: 3 ml Benzocaine/Menthol (Cepacol Sore Throat) 1 sarah MT Q6H PRN PRN Reason: Sore Throat Last Admin: 02/07/17 01:23 Dose: 1 sarah Budesonide (Pulmicort Respules) 0.5 mg INH RQ12 [facility] Last Admin: 02/10/17 08:14 Dose: 0.5 mg Digoxin (Lanoxin) 0.125 mg PO DAILY@1800 [facility] Last Admin: 02/09/17 17:37 Dose: 0.125 mg Famotidine (Pepcid) 20 mg IVP DAILY [facility] Last Admin: 02/10/17 10:21 Dose: 20 mg Furosemide (Lasix) 40 mg PO DAILY [facility] Last Admin: 02/10/17 09:59 Dose: 40 mg Guaifenesin (Mucinex La) 600 mg PO BID [facility] Last Admin: 02/10/17 09:58 Dose: 600 mg Prednisone (Prednisone Tab) 40 mg PO DAILY [facility] Last Admin: 02/10/17 09:59 Dose: 40 mg Rosuvastatin Calcium (Crestor) 10 mg PO HS [facility] Last Admin: 02/09/17 21:56 Dose: 10 mg Spironolactone (Aldactone) 25 mg PO DAILY [facility] Last Admin: 02/10/17 10:20 Dose: Not Given Tiotropium [place] (Spiriva) 18 mcg INH RQ24 [facility] Last Admin: 02/10/17 08:14 Dose: 18 mcg - Labs Labs: 02/09/17 11:20 02/09/17 12:48 PT 37.0 SECONDS (9.7-12.2) H* 02/09/17 11:17 INR 3.1 02/09/17 11:17 APTT 37 SECONDS (21-34) H 02/03/17 13:50 Attending/Attestation - Attestation I have personally seen and examined this patient.: Yes I have fully participated in the care of the patient.: Yes I have reviewed all pertinent clinical information, including history, physical exam and plan: Yes Notes (Text): 02/10/17 11:11 Patient seen and examined ,agree with resident note in plan of care.
[2017-02-09 11:31] LABS: INR 3.1
[2017-02-09 11:37] LABS: BASO % 0.4 % (0.0-2.0); EOS % 0.5 % (0.0-4.0); HEMATOCRIT 38.5 % (35.0-51.0); LYMPH # 0.4 K/uL (1.0-4.3); LYMPH % 10.1 % (20.0-40.0); MEAN CELL VOLUME 80.9 fL (80.0-94.0); MEAN CORPUSCULAR HEMOGLOBIN 25.9 pg (27.0-31.0); MEAN PLATELET VOLUME 6.9 fL (7.2-11.7); MONO # 0.3 K/uL (0.0-0.8); MONO % 8.1 % (0.0-10.0); RED CELL DISTRIBUTION WIDTH 18.4 % (11.5-14.5); WHITE BLOOD COUNT 4.1 K/uL (4.8-10.8)
[2017-02-09 13:06] LABS: CHLORIDE 94 mmol/L (98-107)
[2017-02-09 13:07] LABS: POTASSIUM 4.2 mmol/L (3.6-5.2); SODIUM 133 mmol/L (132-148)
[2017-02-09 13:09] LABS: ALKALINE PHOSPHATASE 70 U/L (38-126); AST/SGOT 37 U/L (17-59); BILIRUBIN,TOTAL 0.6 mg/dL (0.2-1.3); CARBON DIOXIDE 31 mmol/L (22-30); GFR AFRICAN-AMERICAN > 60; TOTAL PROTEIN 6.3 g/dL (6.3-8.3)
[2017-02-09 13:10] LABS: ALT/SGPT 73 U/L (21-72); BLOOD UREA NITROGEN 26 mg/dL (9-20); CALCIUM 9.2 mg/dl (8.6-10.4); GLUCOSE,RANDOM 96 mg/dL (75-110)
[2017-02-09] MEDS: Digoxin 125 mcg (0.125 mg) Tab PO SCH (17:37)
[2017-02-10] MEDS: Albuterol-Ipratrop 3 mg / 0.5 (3 ml) UD INH SCH ×4 (01:36→19:51)
--- NOTE | 2017-02-10 07:47 | CP.PCM.PN ---
<Wale Castillo - Last Filed: 02/10/17 11:18> Subjective - Date & Time of Evaluation Date of Evaluation: 02/10/17 Time of Evaluation: 07:44 - Subjective Subjective: PGY-[address] Otoole's service Pt seen and examined at bedside. Pt has no new complaints. Still has shortness of breath and cough. Denies any fevers, chills, chest pain, nausea or vomiting. Objective - Vital Signs/Intake and Output Vital Signs (last 24 hours): Temp Pulse Resp BP Pulse Ox 98 F 78 20 97/63 L 99 02/09/17 23:30 02/10/17 04:00 02/09/17 23:30 02/09/17 23:30 02/09/17 23:30 Intake and Output: 02/10/17 02/10/17 06:59 18:59 Intake Total 1150 Output Total 900 Balance 250 - Medications Medications: Current Medications Albuterol/Ipratropium (Duoneb 3 Mg/0.5 Mg (3 Ml) Ud) 3 ml INH RQ6 [facility] Last Admin: 02/10/17 01:36 Dose: Not Given Benzocaine/Menthol (Cepacol Sore Throat) 1 sarah MT Q6H PRN PRN Reason: Sore Throat Last Admin: 02/07/17 01:23 Dose: 1 sarah Budesonide (Pulmicort Respules) 0.5 mg INH RQ12 [facility] Last Admin: 02/09/17 19:48 Dose: 0.5 mg Digoxin (Lanoxin) 0.125 mg PO DAILY@1800 [facility] Last Admin: 02/09/17 17:37 Dose: 0.125 mg Famotidine (Pepcid) 20 mg IVP DAILY [facility] Last Admin: 02/09/17 10:11 Dose: 20 mg Furosemide (Lasix) 40 mg PO DAILY [facility] Last Admin: 02/09/17 10:11 Dose: 40 mg Guaifenesin (Mucinex La) 600 mg PO BID [facility] Last Admin: 02/09/17 17:37 Dose: 600 mg Prednisone (Prednisone Tab) 40 mg PO DAILY [facility] Last Admin: 02/09/17 10:11 Dose: 40 mg Rosuvastatin Calcium (Crestor) 10 mg PO HS [facility] Last Admin: 02/09/17 21:56 Dose: 10 mg Spironolactone (Aldactone) 25 mg PO DAILY [facility] Last Admin: 02/09/17 10:11 Dose: 25 mg Tiotropium [place] (Spiriva) 18 mcg INH RQ24 [facility] Last Admin: 02/09/17 07:58 Dose: 18 mcg - Labs Labs: 02/09/17 11:20 02/09/17 12:48 PT 37.0 SECONDS (9.7-12.2) H* 02/09/17 11: INR 3.1 02/09/17 11:17 APTT 37 SECONDS (21-34) H 02/03/17 13:50 - Constitutional Appears: Non-toxic, No Acute Distress, Chronically Ill - Head Exam Head Exam: ATRAUMATIC, NORMOCEPHALIC - ENT Exam ENT Exam: Mucous Membranes Moist - Respiratory Exam Respiratory Exam: Rhonchi, NORMAL BREATHING PATTERN - Cardiovascular Exam Cardiovascular Exam: +S1, +S2 - GI/Abdominal Exam GI & Abdominal Exam: Soft, Normal Bowel Sounds - Neurological Exam Neurological Exam: Alert, Awake - Skin Skin Exam: Dry, Warm Assessment and Plan - Assessment and Plan (Free Text) Assessment: - [facility] will accept pt, waiting on pt's to confirm address that pt will be discharged home to. - Pt not a safe discharge to home due to functional status Numbness and tingling - left sided - resolved - CT head - normal head CT Shortness of breath - secondary to chronic COPD vs pneumonia vs malignancy - CT Chest HR - No definite CT evidence of interstitial lung disease. Cardiomegaly and [id number] pulmonary vascular congestion. Interval appearance of new round opacities/ nodules in the right upper lobe and left lower lobe since the previous study. The differential diagnosis includes multifocal pneumonia. The possibility of neoplasm is not totally excluded. Follow-up reassessment is recommended. Otherwise no significant interval change since the previous study dated 01/22/2017. COPD (chronic obstructive pulmonary disease) 02/05: CT chest with high resolution - see above 02/01: Prednisone 40mg PO daily; Taper on discharge. Will require home oxygen. 01/29: Stop Solumedrol IVP; Start Prednisone 40mg PO daily; Taper on discharge. Will require home oxygen. -01/28: Solumedrol reduced to 40mg IVP Q12H. Prior to discharge, change Solumedrol -> Prednisone -01/19-01/28: Continue BIPAP, patient more compliant (sometimes refuses despite being SOB). -01/16: RAPID called due to SOB. BP 80/50's. Bolused 500cc NS. Ordered BIPAP and ABG, however patient refused. Placed back on NC 3L. -01/14-01/15: Patient complaining of SOB with exertion and orthopnea. Maintain Head of bed elevated 30 degrees. -01/13: PT session: 98% O2 at 2L at rest, 96% room air at rest sitting, 82% room air during ambulation, 88% at 2 liter ambulation. -01/12: Walked 20 steps today down bruno, and patient became dizzy, SOB, and almost collapsed. - Consulted Pulmonology, Dr. Cobb, f/u recs -planning for home O2 - Aware of HR in 140's and SOB after eating and low levels of exertion. -f/u ABG (not collected) -LDH 654H -HIV - negative -persistent shortness of breath - Patient with long history of smoking most likely has underlying COPD. Nebulizer treatment. Inhaled steroids. Spiriva. PFT as out pt Systolic dysfunction with acute on chronic heart failure 02/01: pt at baseline - EF 10-15%, mechanical MV- no regurg, tricuspid regurg. see full report -Chest CT 01/22 - Cardiomegaly. Cardiac valve prosthesis. Left-sided AICD. Dense coronary artery calcifications. -Small consolidation (favored to reflect atelectasis rather than pneumonia) at the left lung base. -Bibasilar atelectasis. Small airways disease. Mild ground-glass and fine nodular opacities within the right upper lobe, possibly infectious or inflammatory. -7 mm left upper lobe pulmonary nodule. Guidelines by the Fleischner society (radiology 2005; 237:390 5-400) suggests that in patients with low risk for lung cancer, with nodules less than or equal to 8 mm in diameter should have follow-up in approximately 6-12 months. In patients with high-risk, including smokers, follow-up is recommended 3-6 months. Patient with a known malignancy for risk for metastases should receive 3 month follow-up. -Hepatic capsular calcification. -Numerous low-density lesions throughout the liver, possibly cysts. Decompressed gallbladder limits evaluation. Bilateral hypodense renal lesions. Right adrenal gland hypertrophy. 12 mm left adrenal gland nodule measures approximately 9 Hounsfield units, likely adenoma. -Consulted Cardiology, Dr. Arguelles - f/u recs -01/22: Lasix 40mg IVP daily, Spironolactone 25mg daily. CXR - no interval pathology change. -01/19: HOLD LASIX FOR 1 TO 2 DAYS AND CONT MUCINEX. PT PRERENAL AND APPEARS DRY. ON BOTH LASIX AND SPIRONOLACTONE. -SOB APPEARS TO BE SECONDARY TO PULM ETIOLOGY. IMPROVES WITH NEBS. PT WITH RHONCHI B/L. MAY BENEFIT FROM PULM TOILET. -will attempt to obtain company of [facility] for interrogation. -likely deconditioned. will benefit from rehab -01/16: RAPID called due to SOB. BP 80/50's. Bolused 500cc NS. Ordered BIPAP and ABG, however patient refused. Placed back on NC 3L. ProBNP 4070H (less than # on admission) and KACY negative. -01/16: Decrease to Lasix 40mg PO daily (was BID). Admit to telemetry, BNP 4560 on admission Digoxin 0.125mg Lisinopril 10mg daily Aldactone 25mg PO Daily patient with AICD, will check echo to determine EF CXR 01/03: mild cardiomegaly, mild pulmonary venous congestion. s/p sternotomy, aortic valve replacement, AICD H/O mitral valve replacement with mechanical valve 02/09: INR pending, coninue Coumadin and monitor INR. Patient will be discharged when able. Previous note Cardiac valve replacement 6-7yrs ago Consulted Cardiology, Dr. Arguelles - f/u recs -echocardiogram reviewed. valve leaflets are opening and functional. There is no signficant gradient across the valve. -recommend INR 2.5 to 3.5. STOP Lovenox 3/5 STOP Heparin Drip - cardiac protocol, with bolus (because patient is refusing blood draws) Chronic atrial fibrillation Consulted Cardiology, Dr. Arguelles - f/u recs -Rate controlled -echocardiogram reviewed. valve leaflets are opening and functional. There is no signficant gradient across the valve. -recommend INR 2.5 to 3.5. -See PT/INR trends above Coumadin as above STOP Lovenox 3/5 Cough, acute -Mucinex 600mg PO BID -01/28: cough intermittent -01/24 does not complain of cough -01/19-01/22: Persists. Non-productive. Continue Mucinex. -01/15: patient developed productive cough with yellow sputum today. CAD (coronary artery disease) Consulted Cardiology, Dr. Arguelles - f/u recs -Aware of HR in 140's and SOB after eating and low levels of exertion. -unknown graft status. no evidence of ischemia at present -No current angina History of SD (myocardial infarction) HOLD Crestor 10mg PO HS (last dose 01/18- due to elevated LFTs) ROMIs negative x3 EKG paced Denies chest pain Transaminitis, acute 01/31: AST/ALT normalized; consider resuming crestor. 01/30 patient refusing labs. will re-attempt 01/28-01/29: Improving. hold crestor (since 01/18) 01/27: AST 37 / ALT 124 - continue to hold crestor. 01/25-01/26: Patient refused blood work 01/24: 51/164 AST / ALT down trending 01/22-01/23: AST / ALT down trending - continue to hold Crestor 01/21: AST 57 / ALT 188, decreasing. HOLD Crestor 10mg PO HS (last dose 01/18- due to elevated LFTs) 01/20: AST 75 / ALT 205 01/19: AST 70 / ALT 201 - increasing -> hold crestor for 2 nights 01/19, 01/20 01/16: AST 90 / ALT 164 - increasing -> hold Crestor tonight. - AST 77 / ALT 98 -> previously normal. - Continue to monitor Electrolyte Imbalance 01/30 patient refusing labs, will re-attempt 01/21-01/29: Hyponatremia, stable Hyperkalemia - resolved Hypokalemia, Tachycardia HR grossly WNL, continue to monitor 01/20-01/23: HR WNL 01/13: Patient becomes SOB very easily, desaturating to 82% while ambulating. Anytime he eats or gets up, HR climbs into 140's Continue Digoxin 0.125mg EKG in ER: sinus tachycardia at 100, paced, incomplete RBBB Discontinued cardizem drip of 5mg/h started in the ER Lower extremity edema LE Duplex - negative. see full report. Prophylactic measure Coumadin as above. protonix 40mg daily SCD contraindicated due to LE edema D/C when bed available <Johnnie Otoole Jr. - Last Filed: 02/20/17 16:35> Objective - Vital Signs/Intake and Output Vital Signs (last 24 hours): Temp Pulse Resp BP Pulse Ox 97.5 F L 74 20 99/61 L 99 02/20/17 15:41 02/20/17 15:41 02/20/17 15:41 02/20/17 15:41 02/20/17 15:41 Intake and Output: 02/20/17 02/20/17 06:59 18:59 Intake Total 760 Output Total 1100 Balance -340 - Medications Medications: Current Medications Acetylcysteine (Acetylcysteine 20%) 4 ml INH RQ4 [facility] Last Admin: 02/20/17 16:17 Dose: 4 ml Albuterol Sulfate (Albuterol 0.042% Inhal Laura (1.25mg/3ml) Ud) 1.25 mg INH RQ4 [facility] Last Admin: 02/20/17 16:17 Dose: 1.25 mg Benzocaine/Menthol (Cepacol Sore Throat) 1 sarah MT Q6H PRN PRN Reason: Sore Throat Last Admin: 02/15/17 09:32 Dose: 1 sarah Budesonide (Pulmicort Respules) 0.5 mg INH RQ12 [facility] Last Admin: 02/13/17 07:34 Dose: 0.5 mg Cefpodoxime Proxetil (Vantin) 200 mg PO Q12H [facility] Last Admin: 02/20/17 14:44 Dose: 200 mg Digoxin (Lanoxin) 0.25 mg PO DAILY@1800 [facility] Last Admin: 02/19/17 17:32 Dose: 0.25 mg Famotidine (Pepcid) 20 mg PO DAILY [facility] Last Admin: 02/20/17 11:19 Dose: 20 mg Guaifenesin (Mucinex La) 600 mg PO BID [facility] Last Admin: 02/20/17 11:19 Dose: 600 mg Ipratropium [place] (Atrovent) 0.5 mg IH RQ4 [facility] Last Admin: 02/20/17 16:17 Dose: 0.5 mg Lisinopril (Zestril) 2.5 mg PO DAILY [facility] Last Admin: 02/20/17 11:19 Dose: 2.5 mg Prednisone (Prednisone Tab) 20 mg PO DAILY [facility] Last Admin: 02/20/17 11:19 Dose: 20 mg Spironolactone (Aldactone) 25 mg PO DAILY [facility] Last Admin: 02/20/17 11:19 Dose: 25 mg - Labs Labs: 02/20/17 11:24 02/20/17 11:24 PT 19.9 SECONDS (9.7-12.2) H 02/20/17 11:24 INR 1.7 02/20/17 11:24 APTT 41 SECONDS (21-34) H 02/16/17 13:23 Attending/Attestation - Attestation I have personally seen and examined this patient.: Yes I have fully participated in the care of the patient.: Yes I have reviewed all pertinent clinical information, including history, physical exam and plan: Yes Notes (Text): 02/20/17 16:34 patient seen and examined. Reviewed resident note in plan of care
[2017-02-10] MEDS: Tiotropium 18 mcg Cap For Inhalation INH SCH (08:14)
[2017-02-10] MEDS: Budesonide 0.5 mg/2 ml Inhal Susp UD INH SCH ×2 (08:14→19:51)
[2017-02-10] MEDS: guaiFENesin 600 mg ER Tab PO SCH ×2 (09:58→17:28)
[2017-02-10] MEDS: Digoxin 125 mcg (0.125 mg) Tab PO SCH (17:27)
[2017-02-11] MEDS: Albuterol-Ipratrop 3 mg / 0.5 (3 ml) UD INH SCH ×4 (01:07→19:42)
[2017-02-11] MEDS: Budesonide 0.5 mg/2 ml Inhal Susp UD INH SCH (07:57)
[2017-02-11] MEDS: Tiotropium 18 mcg Cap For Inhalation INH SCH (07:58)
[2017-02-11] MEDS: guaiFENesin 600 mg ER Tab PO SCH ×2 (09:32→17:30)
[2017-02-11 11:11] LABS: BASO % 0.3 % (0.0-2.0); HEMATOCRIT 38.8 % (35.0-51.0); LYMPH # 0.7 K/uL (1.0-4.3); LYMPH % 15.3 % (20.0-40.0); MEAN CORPUSCULAR HEMOGLOBIN 25.3 pg (27.0-31.0); MEAN CORPUSCULAR HGB CONC 31.6 g/dL (33.0-37.0); MEAN PLATELET VOLUME 6.8 fL (7.2-11.7); MONO # 0.5 K/uL (0.0-0.8); MONO % 10.6 % (0.0-10.0); NRBC % 0.1 % (0.0-2.0); WHITE BLOOD COUNT 4.6 K/uL (4.8-10.8)
[2017-02-11 11:17] LABS: INR 3.9
[2017-02-11 11:33] LABS: CHLORIDE 94 mmol/L (98-107); POTASSIUM 3.7 mmol/L (3.6-5.2); SODIUM 131 mmol/L (132-148)
[2017-02-11 11:35] LABS: GFR AFRICAN-AMERICAN > 60
[2017-02-11 11:36] LABS: ALB/GLOB RATIO 1.1 (1.0-2.1); ALKALINE PHOSPHATASE 64 U/L (38-126); ALT/SGPT 67 U/L (21-72); AST/SGOT 40 U/L (17-59); BILIRUBIN,TOTAL 0.3 mg/dL (0.2-1.3); BLOOD UREA NITROGEN 23 mg/dL (9-20); CARBON DIOXIDE 28 mmol/L (22-30); GLUCOSE,RANDOM 110 mg/dL (75-110); TOTAL PROTEIN 5.8 g/dL (6.3-8.3)
[2017-02-11 11:37] LABS: CALCIUM 8.8 mg/dl (8.6-10.4)
--- NOTE | 2017-02-11 11:44 | RAD ---
HISTORY: sob COMPARISON: 01/22/2017 FINDINGS: LUNGS: There is new opacity at the right lung base. There is questionable opacity at the left lung base. PLEURA: No significant pleural effusion identified, no pneumothorax apparent. CARDIOVASCULAR: Mitral valvular replacement. AICD. Mild cardiomegaly. Mild congestive change. OSSEOUS STRUCTURES: No significant abnormalities. VISUALIZED UPPER ABDOMEN: Normal. OTHER FINDINGS: None. IMPRESSION: New opacity at right lung base suspicious for pneumonia. Questionable opacity at left base. Mild congestive change.
[2017-02-11] MEDS: Acetylcysteine 20% Inhal Soln (4ml) INH SCH ×2 (13:39→19:42)
--- NOTE | 2017-02-11 14:07 | CP.PCM.PN ---
<JonathanWale - Last Filed: 02/11/17 14:04> Subjective - Date & Time of Evaluation Date of Evaluation: 02/11/17 Time of Evaluation: 14:04 - Subjective Subjective: PGY-[address] Otoole's service Pt seen and examined at bedside. There was no overnight events. Pt continues to complain of cough and sob. He denies any fevers, chills, chest pain, sob, nausea or vomiting. Objective - Vital Signs/Intake and Output Vital Signs (last 24 hours): Temp Pulse Resp BP Pulse Ox 97.4 F L 86 16 96/64 L 98 02/11/17 07:20 02/11/17 11:24 02/11/17 11:24 02/11/17 11:24 02/11/17 11:24 Intake and Output: 02/11/17 02/11/17 06:59 18:59 Intake Total 420 Output Total 2200 Balance -1780 - Medications Medications: Current Medications Acetylcysteine (Acetylcysteine 20%) 4 ml INH RQ6 [facility] Last Admin: 02/11/17 13:39 Dose: 4 ml Albuterol/Ipratropium (Duoneb 3 Mg/0.5 Mg (3 Ml) Ud) 3 ml INH RQ6 [facility] Last Admin: 02/11/17 13:39 Dose: 3 ml Benzocaine/Menthol (Cepacol Sore Throat) 1 sarah MT Q6H PRN PRN Reason: Sore Throat Last Admin: 02/07/17 01:23 Dose: 1 sarah Budesonide (Pulmicort Respules) 0.5 mg INH RQ12 [facility] Last Admin: 02/11/17 07:57 Dose: 0.5 mg Digoxin (Lanoxin) 0.125 mg PO DAILY@1800 [facility] Last Admin: 02/10/17 17:27 Dose: 0.125 mg Famotidine (Pepcid) 20 mg PO DAILY [facility] Last Admin: 02/11/17 09:36 Dose: 20 mg Furosemide (Lasix) 40 mg PO DAILY [facility] Last Admin: 02/11/17 09:32 Dose: 40 mg Guaifenesin (Mucinex La) 600 mg PO BID [facility] Last Admin: 02/11/17 09:32 Dose: 600 mg Prednisone (Prednisone Tab) 40 mg PO DAILY [facility] Last Admin: 02/11/17 09:32 Dose: 40 mg Rosuvastatin Calcium (Crestor) 10 mg PO HS [facility] Last Admin: 02/10/17 21:06 Dose: 10 mg Spironolactone (Aldactone) 25 mg PO DAILY [facility] Last Admin: 02/11/17 11:40 Dose: Not Given Tiotropium Shiloh (Spiriva) 18 mcg INH RQ24 [facility] Last Admin: 02/11/17 07:58 Dose: 18 mcg - Labs Labs: 02/11/17 10:59 02/11/17 10:59 PT 47.3 SECONDS (9.7-12.2) H* D 02/11/17 10:59 INR 3.9 02/11/17 10:59 APTT 37 SECONDS (21-34) H 02/03/17 13:50 - Constitutional Appears: No Acute Distress, Chronically Ill - Head Exam Head Exam: ATRAUMATIC, NORMOCEPHALIC - Respiratory Exam Respiratory Exam: Rhonchi, NORMAL BREATHING PATTERN - Cardiovascular Exam Cardiovascular Exam: +S1, +S2 - GI/Abdominal Exam GI & Abdominal Exam: Soft, Normal Bowel Sounds - Neurological Exam Neurological Exam: Alert, Awake - Skin Skin Exam: Dry, Warm Assessment and Plan - Assessment and Plan (Free Text) Assessment: - [facility] will accept pt, waiting on pt's to confirm address that pt will be discharged home to. - Pt not a safe discharge to home due to functional status Numbness and tingling - left sided - resolved - CT head - normal head CT Shortness of breath - secondary to chronic COPD vs pneumonia vs malignancy - CT Chest HR 02/05 - No definite CT evidence of interstitial lung disease. Cardiomegaly and [id number] pulmonary vascular congestion. Interval appearance of new round opacities/ nodules in the right upper lobe and left lower lobe since the previous study. The differential diagnosis includes multifocal pneumonia. The possibility of neoplasm is not totally excluded. Follow-up reassessment is recommended. Otherwise no significant interval change since the previous study dated 01/22/2017. COPD (chronic obstructive pulmonary disease) 02/11: Added mucomyst to breathing treatments. Will get repeat CXR 02/05: CT chest with high resolution - see above 02/01: Prednisone 40mg PO daily; Taper on discharge. Will require home oxygen. 01/29: Stop Solumedrol IVP; Start Prednisone 40mg PO daily; Taper on discharge. Will require home oxygen. -01/28: Solumedrol reduced to 40mg IVP Q12H. Prior to discharge, change Solumedrol -> Prednisone -01/19-01/28: Continue BIPAP, patient more compliant (sometimes refuses despite being SOB). -01/16: RAPID called due to SOB. BP 80/50's. Bolused 500cc NS. Ordered BIPAP and ABG, however patient refused. Placed back on NC 3L. -01/14-01/15: Patient complaining of SOB with exertion and orthopnea. Maintain Head of bed elevated 30 degrees. -01/13: PT session: 98% O2 at 2L at rest, 96% room air at rest sitting, 82% room air during ambulation, 88% at 2 liter ambulation. -01/12: Walked 20 steps today down bruno, and patient became dizzy, SOB, and almost collapsed. - Consulted Pulmonology, Dr. Cobb, f/u recs -planning for home O2 - Aware of HR in 140's and SOB after eating and low levels of exertion. -LDH 654H -HIV - negative -persistent shortness of breath - Patient with long history of smoking most likely has underlying COPD. Nebulizer treatment. Inhaled steroids. Spiriva. PFT as out pt Systolic dysfunction with acute on chronic heart failure - 02/11: dig level low, increase to 0.25 - EF 10-15%, mechanical MV- no regurg, tricuspid regurg. see full report -Chest CT 01/22 - Cardiomegaly. Cardiac valve prosthesis. Left-sided AICD. Dense coronary artery calcifications. -Small consolidation (favored to reflect atelectasis rather than pneumonia) at the left lung base. -Bibasilar atelectasis. Small airways disease. Mild ground-glass and fine nodular opacities within the right upper lobe, possibly infectious or inflammatory. -7 mm left upper lobe pulmonary nodule. Guidelines by the Fleischner society (radiology 2005; 237:390 5-400) suggests that in patients with low risk for lung cancer, with nodules less than or equal to 8 mm in diameter should have follow-up in approximately 6-12 months. In patients with high-risk, including smokers, follow-up is recommended 3-6 months. Patient with a known malignancy for risk for metastases should receive 3 month follow-up. -Hepatic capsular calcification. -Numerous low-density lesions throughout the liver, possibly cysts. Decompressed gallbladder limits evaluation. Bilateral hypodense renal lesions. Right adrenal gland hypertrophy. 12 mm left adrenal gland nodule measures approximately 9 Hounsfield units, likely adenoma. -Consulted Cardiology, Dr. Arguelles - f/u recs -01/22: Lasix 40mg IVP daily, Spironolactone 25mg daily. CXR - no interval pathology change. -01/19: HOLD LASIX FOR 1 TO 2 DAYS AND CONT MUCINEX. PT PRERENAL AND APPEARS DRY. ON BOTH LASIX AND SPIRONOLACTONE. -SOB APPEARS TO BE SECONDARY TO PULM ETIOLOGY. IMPROVES WITH NEBS. PT WITH RHONCHI B/L. MAY BENEFIT FROM PULM TOILET. -will attempt to obtain company of [facility] for interrogation. -likely deconditioned. will benefit from rehab -01/16: RAPID called due to SOB. BP 80/50's. Bolused 500cc NS. Ordered BIPAP and ABG, however patient refused. Placed back on NC 3L. ProBNP 4070H (less than # on admission) and KACY negative. -01/16: Decrease to Lasix 40mg PO daily (was BID). Admit to telemetry, BNP 4560 on admission Lisinopril 10mg daily Aldactone 25mg PO Daily patient with AICD, will check echo to determine EF CXR 01/03: mild cardiomegaly, mild pulmonary venous congestion. s/p sternotomy, aortic valve replacement, AICD H/O mitral valve replacement with mechanical valve 02/09: INR pending, coninue Coumadin and monitor INR. Patient will be discharged when able. Previous note Cardiac valve replacement 6-7yrs ago Consulted Cardiology, Dr. Arguelles - f/u recs -echocardiogram reviewed. valve leaflets are opening and functional. There is no signficant gradient across the valve. -recommend INR 2.5 to 3.5. STOP Lovenox 3/5 STOP Heparin Drip - cardiac protocol, with bolus (because patient is refusing blood draws) Chronic atrial fibrillation Consulted Cardiology, Dr. Blane Walker f/u recs -Rate controlled -echocardiogram reviewed. valve leaflets are opening and functional. There is no signficant gradient across the valve. -recommend INR 2.5 to 3.5. -See PT/INR trends above Coumadin as above STOP Lovenox 01/11 Cough, acute - will add mucocyst -Mucinex 600mg PO BID -01/28: cough intermittent -01/24 does not complain of cough -01/19-01/22: Persists. Non-productive. Continue Mucinex. -01/15: patient developed productive cough with yellow sputum today. CAD (coronary artery disease) Consulted Cardiology, Dr. Arguelles - f/u recs -Aware of HR in 140's and SOB after eating and low levels of exertion. -unknown graft status. no evidence of ischemia at present -No current angina History of OH (myocardial infarction) HOLD Crestor 10mg PO HS (last dose 01/18- due to elevated LFTs) ROMIs negative x3 EKG paced Denies chest pain Transaminitis, acute 01/31: AST/ALT normalized; consider resuming crestor. 01/30 patient refusing labs. will re-attempt 01/28-01/29: Improving. hold crestor (since 01/18) 01/27: AST 37 / ALT 124 - continue to hold crestor. 01/25-01/26: Patient refused blood work 01/24: 51/164 AST / ALT down trending 01/22-01/23: AST / ALT down trending - continue to hold Crestor 01/21: AST 57 / ALT 188, decreasing. HOLD Crestor 10mg PO HS (last dose 01/18- due to elevated LFTs) 01/20: AST 75 / ALT 205 01/19: AST 70 / ALT 201 - increasing -> hold crestor for 2 nights 01/19, 01/20 01/16: AST 90 / ALT 164 - increasing -> hold Crestor tonight. - AST 77 / ALT 98 -> previously normal. - Continue to monitor Electrolyte Imbalance 01/30 patient refusing labs, will re-attempt 01/21-01/29: Hyponatremia, stable Hyperkalemia - resolved Hypokalemia, Tachycardia HR grossly WNL, continue to monitor 01/20-01/23: HR WNL 01/13: Patient becomes SOB very easily, desaturating to 82% while ambulating. Anytime he eats or gets up, HR climbs into 140's EKG in ER: sinus tachycardia at 100, paced, incomplete RBBB Discontinued cardizem drip of 5mg/h started in the ER Lower extremity edema LE Duplex - negative. see full report. Prophylactic measure Coumadin as above. protonix 40mg daily SCD contraindicated due to LE edema D/C when bed available <Melissa Davila V - Last Filed: 02/13/17 07:27> Objective - Vital Signs/Intake and Output Vital Signs (last 24 hours): Temp Pulse Resp BP Pulse Ox 97.3 F L 81 20 126/83 100 02/12/17 23:45 02/13/17 01:28 02/12/17 23:45 02/12/17 23:45 02/12/17 23:45 Intake and Output: 02/12/17 02/13/17 18:59 06:59 Intake Total 710 300 Output Total 500 Balance 710 -200 - Medications Medications: Current Medications Acetylcysteine (Acetylcysteine 20%) 4 ml INH RQ6 [facility] Last Admin: 02/13/17 01:30 Dose: Not Given Benzocaine/Menthol (Cepacol Sore Throat) 1 sarah MT Q6H PRN PRN Reason: Sore Throat Last Admin: 02/07/17 01:23 Dose: 1 sarah Budesonide (Pulmicort Respules) 0.5 mg INH RQ12 [facility] Last Admin: 02/12/17 19:00 Dose: 0.5 mg Digoxin (Lanoxin) 0.25 mg PO DAILY@1800 [facility] Last Admin: 02/12/17 18:18 Dose: 0.25 mg Famotidine (Pepcid) 20 mg PO DAILY [facility] Last Admin: 02/12/17 10:21 Dose: 20 mg Furosemide (Lasix) 40 mg PO DAILY [facility] Last Admin: 02/12/17 10:23 Dose: Not Given Guaifenesin (Mucinex La) 600 mg PO BID [facility] Last Admin: 02/12/17 18:18 Dose: 600 mg Prednisone (Prednisone Tab) 40 mg PO DAILY [facility] Last Admin: 02/12/17 10:21 Dose: 40 mg Rosuvastatin Calcium (Crestor) 10 mg PO HS [facility] Last Admin: 02/12/17 21:32 Dose: 10 mg Spironolactone (Aldactone) 25 mg PO DAILY [facility] Last Admin: 02/12/17 10:23 Dose: Not Given Tiotropium Shiloh (Spiriva) 18 mcg INH RQ24 [facility] Last Admin: 02/12/17 08:41 Dose: 18 mcg - Labs Labs: 02/11/17 10:59 02/11/17 10:59 PT 42.7 SECONDS (9.7-12.2) H* 02/12/17 11:44 INR 3.6 02/12/17 11:44 APTT 37 SECONDS (21-34) H 02/03/17 13:50 Attending/Attestation - Attestation I have personally seen and examined this patient.: Yes I have fully participated in the care of the patient.: Yes I have reviewed all pertinent clinical information, including history, physical exam and plan: Yes Notes (Text): Hospitalist covering for Dr. Otoole's service This is late computer entry for 02/11/17. Patient seen, examined and case discussed with day-time resident. Patient reporting productive cough, non bloody. Will attempt to dry out secretions for the patient. He is afebrile. Patient reports he is unhappy because multiple people came by to draw his blood and feels pain. I indicated to the patient, I need to check his INR for his heart valve and Digoxin since has not had in awhile and the blood work is to see any electrolyte imbalances which could precipitate abnormal heart rhythms. Patient reordered for chest xray given persistent cough. Discharge planning in progress by primary attending Assessment/Plan Systolic dysfunction with acute on chronic heart failure * Digoxin 0.125mg PO daily * Crestor 10mg PO QHS * Aldactone 25mg PO daily * beta erich side effect: bronchospasm * Was previously on Cardizem drip; has noted to to be borderline hypotensive during admission * Cardiology (Dr. Arguelles) on the case * Patient restarted on low dose ghada-inhibitor * 01/03/17: EF: 10-15%, severely impaired (further findings per report) * Patient is on coumadin for mitral valve replacement with mechanical valve H/O mitral valve replacement with mechanical valve * INR: 3.9 coninue Coumadin 4mg PO X1; per discussion with resident, per Dr. Otoole, patient has history of dropping his INR too quickly and will need the high dose of Coumadin-->follow- INR * Per cardiology: goal is 2.5-3.5 * Echo (01/03/17): no gradient noted across the valve COPD (chronic obstructive pulmonary disease) * Dr. Cobb (pulm) on board * Patient previously on IV steroids and has been tapered of to Prednisone 40mg PO daily since 02/03/17 * CT Chest HR 02/05 - No definite CT evidence of interstitial lung disease. Cardiomegaly and [id number] pulmonary vascular congestion. Interval appearance of new round opacities/ nodules in the right upper lobe and left lower lobe since the previous study. The differential diagnosis includes multifocal pneumonia. The possibility of neoplasm is not totally excluded. Follow-up reassessment is recommended. Otherwise no significant interval change since the previous study dated 01/22/2017. * Acteylcystenie 4ml INH Q6H * Cepacol 1 lozenge MT Q 6 PRN short throast * Mucines 600mg PO bid * Pulmicort 0.5mg INH Q 12 * Spiriva 18mcg inhaled RQ24 hours * Smoking history * Repeat Chest xray (02/11/17): possible new opacity? f/u pulm Pulmonary nodule * Pulmonary on board * 7 mm left upper lobe pulmonary nodule. Guidelines by the Fleischner society ( radiology 2005; 237:390 5-400) suggests that in patients with low risk for lung cancer, with nodules less than or equal to 8 mm in diameter should have follow- up in approximately 6-12 months. In patients with high-risk, including smokers , follow-up is recommended 3-6 months. Patient with a known malignancy for risk for metastases should receive 3 month follow-up. Hepatic capsular calcification. Chronic atrial fibrillation * Patient is on Coumadin; and rate controlled without rate control agent at this time * Cardiology (Dr. Arguelles) on board Cough, Chronic * Patient with history of cough, worsening by lung conditions per review of chart * Pulmonary (Dr. Cobb) on board * Noted further under "Shortness of breath" and "COPD" CAD (coronary artery disease) * Patient is on statin; follow-up Liver function tests; which have normalized * Cardiology: Dr. Arguelles on board * History of OH (myocardial infarction) * c/w Crestor 10mg POqHS; monitor LFTs * started on low dose Lisinopril 2.5mg PO Daily * c/w Aldactone 25mg PO daily * Patient is on Coumadin for mitral valve prosthesis following mitral valve surgery * Cardiology on board * prior ROMIs negative x3 Transaminitis * normalized * Patient is on Crestor 10mg POqhs Electrolyte Imbalance * Patient has history of refusing blood work during hospitalization; permitted blood work with me today * No electrolyte imbalances noted Numbness and tingling - left sided * no acute complaints today * CT head (02/05/17) normal Shortness of breath * secondary to chronic COPD vs acute on chronic systolic heart failure * CT Chest HR 02/05 - No definite CT evidence of interstitial lung disease. Cardiomegaly and [id number] pulmonary vascular congestion. Interval appearance of new round opacities/ nodules in the right upper lobe and left lower lobe since the previous study. The differential diagnosis includes multifocal pneumonia. The possibility of neoplasm is not totally excluded. Follow-up reassessment is recommended. Otherwise no significant interval change since the previous study dated 01/22/2017. * Dr Cobb (pulm) on the case * Dr. Arguelles (cardiology) on the case * Acteylcystenie 4ml INH Q6H * Cepacol 1 lozenge MT Q 6 PRN short throast * Mucines 600mg PO bid * See under COPD Lower extremity edema * LE Duplex - negative. see full report. Prophylactic measure * Coumadin as above. * protonix 40mg daily * SCD contraindicated due to LE edema * Discharge planning on going
[2017-02-11] MEDS: Digoxin 250 mcg (0.25 mg) Tab PO SCH (17:30)
[2017-02-12] MEDS: Acetylcysteine 20% Inhal Soln (4ml) INH SCH ×4 (01:06→19:00)
[2017-02-12] MEDS: Albuterol-Ipratrop 3 mg / 0.5 (3 ml) UD INH SCH ×4 (01:06→19:00)
[2017-02-12] MEDS: Tiotropium 18 mcg Cap For Inhalation INH SCH (08:41)
[2017-02-12] MEDS: Budesonide 0.5 mg/2 ml Inhal Susp UD INH SCH ×2 (08:41→19:00)
--- NOTE | 2017-02-12 10:16 | CP.PCM.PN ---
<JonathanWale - Last Filed: 02/12/17 13:28> Subjective - Date & Time of Evaluation Date of Evaluation: 02/12/17 Time of Evaluation: 10:05 - Subjective Subjective: PGY-[address] Otoole's service Pt seen and examined at bedside. Pt without any overnight events. Pt has cough and sob. He reports not being up and walking around very much, stating that he becomes sob. Denies fevers, chills, chest pain, nausea or vomiting. Objective - Vital Signs/Intake and Output Vital Signs (last 24 hours): Temp Pulse Resp BP Pulse Ox 97.6 F 89 20 123/79 97 02/12/17 07:00 02/12/17 08:00 02/12/17 07:00 02/12/17 07:00 02/12/17 07:00 Intake and Output: 02/12/17 02/12/17 06:59 18:59 Output Total 600 Balance -600 - Medications Medications: Current Medications Acetylcysteine (Acetylcysteine 20%) 4 ml INH RQ6 [facility] Last Admin: 02/12/17 08:41 Dose: 4 ml Albuterol/Ipratropium (Duoneb 3 Mg/0.5 Mg (3 Ml) Ud) 3 ml INH RQ6 [facility] Last Admin: 02/12/17 08:41 Dose: 3 ml Benzocaine/Menthol (Cepacol Sore Throat) 1 sarah MT Q6H PRN PRN Reason: Sore Throat Last Admin: 02/07/17 01:23 Dose: 1 sarah Budesonide (Pulmicort Respules) 0.5 mg INH RQ12 [facility] Last Admin: 02/12/17 08:41 Dose: 0.5 mg Digoxin (Lanoxin) 0.25 mg PO DAILY@1800 [facility] Last Admin: 02/11/17 17:30 Dose: 0.25 mg Famotidine (Pepcid) 20 mg PO DAILY [facility] Last Admin: 02/11/17 09:36 Dose: 20 mg Furosemide (Lasix) 40 mg PO DAILY [facility] Last Admin: 02/11/17 09:32 Dose: 40 mg Guaifenesin (Mucinex La) 600 mg PO BID [facility] Last Admin: 02/11/17 17:30 Dose: 600 mg Prednisone (Prednisone Tab) 40 mg PO DAILY [facility] Last Admin: 02/11/17 09:32 Dose: 40 mg Rosuvastatin Calcium (Crestor) 10 mg PO HS [facility] Last Admin: 02/10/17 21:06 Dose: 10 mg Spironolactone (Aldactone) 25 mg PO DAILY [facility] Last Admin: 02/11/17 11:40 Dose: Not Given Tiotropium [place] (Spiriva) 18 mcg INH RQ24 [facility] Last Admin: 02/12/17 08:41 Dose: 18 mcg - Labs Labs: 02/11/17 10:59 02/11/17 10:59 PT 47.3 SECONDS (9.7-12.2) H* D 02/11/17 10:59 INR 3.9 02/11/17 10:59 APTT 37 SECONDS (21-34) H 02/03/17 13:50 - Constitutional Appears: No Acute Distress, Chronically Ill - Head Exam Head Exam: ATRAUMATIC, NORMOCEPHALIC - ENT Exam ENT Exam: Mucous Membranes Moist - Respiratory Exam Respiratory Exam: Rhonchi, NORMAL BREATHING PATTERN - Cardiovascular Exam Cardiovascular Exam: +S1, +S2 - GI/Abdominal Exam GI & Abdominal Exam: Soft, Normal Bowel Sounds - Neurological Exam Neurological Exam: Alert, Awake - Skin Skin Exam: Dry, Warm Assessment and Plan - Assessment and Plan (Free Text) Assessment: Assessment: - [facility] will accept pt, waiting on pt's to confirm address that pt will be discharged home to. - Pt not a safe discharge to home due to functional status Numbness and tingling - left sided - resolved - CT head - normal head CT Shortness of breath - secondary to chronic COPD vs pneumonia vs malignancy - CXR 02/11 - New opacity at right lung base suspicious for pneumonia. Questionable opacity at left base. Mild congestive change. - CT Chest HR 02/05 - No definite CT evidence of interstitial lung disease. Cardiomegaly and [id number] pulmonary vascular congestion. Interval appearance of new round opacities/ nodules in the right upper lobe and left lower lobe since the previous study. The differential diagnosis includes multifocal pneumonia. The possibility of neoplasm is not totally excluded. Follow-up reassessment is recommended. Otherwise no significant interval change since the previous study dated 01/22/2017. COPD (chronic obstructive pulmonary disease) 4/5: Added mucomyst to breathing treatments. Will get repeat CXR 02/05: CT chest with high resolution - see above 02/01: Prednisone 40mg PO daily; Taper on discharge. Will require home oxygen. 01/29: Stop Solumedrol IVP; Start Prednisone 40mg PO daily; Taper on discharge. Will require home oxygen. -01/28: Solumedrol reduced to 40mg IVP Q12H. Prior to discharge, change Solumedrol -> Prednisone -01/19-01/28: Continue BIPAP, patient more compliant (sometimes refuses despite being SOB). -01/16: RAPID called due to SOB. BP 80/50's. Bolused 500cc NS. Ordered BIPAP and ABG, however patient refused. Placed back on NC 3L. -01/14-01/15: Patient complaining of SOB with exertion and orthopnea. Maintain Head of bed elevated 30 degrees. -01/13: PT session: 98% O2 at 2L at rest, 96% room air at rest sitting, 82% room air during ambulation, 88% at 2 liter ambulation. -01/12: Walked 20 steps today down [address]uno, and patient became dizzy, SOB, and almost collapsed. - Consulted Pulmonology, Dr. Cobb, f/u recs -planning for home O2 - Aware of HR in 140's and SOB after eating and low levels of exertion. -LDH 654H -HIV - negative -persistent shortness of breath - Patient with long history of smoking most likely has underlying COPD. Nebulizer treatment. Inhaled steroids. Spiriva. PFT as out pt Systolic dysfunction with acute on chronic heart failure - 02/11: dig level low, increase to 0.25 - EF 10-15%, mechanical MV- no regurg, tricuspid regurg. see full report -Chest CT 01/22 - Cardiomegaly. Cardiac valve prosthesis. Left-sided AICD. Dense coronary artery calcifications. -Small consolidation (favored to reflect atelectasis rather than pneumonia) at the left lung base. -Bibasilar atelectasis. Small airways disease. Mild ground-glass and fine nodular opacities within the right upper lobe, possibly infectious or inflammatory. -7 mm left upper lobe pulmonary nodule. Guidelines by the Fleischner society (radiology 2005; 237:390 5-400) suggests that in patients with low risk for lung cancer, with nodules less than or equal to 8 mm in diameter should have follow-up in approximately 6-12 months. In patients with high-risk, including smokers, follow-up is recommended 3-6 months. Patient with a known malignancy for risk for metastases should receive 3 month follow-up. -Hepatic capsular calcification. -Numerous low-density lesions throughout the liver, possibly cysts. Decompressed gallbladder limits evaluation. Bilateral hypodense renal lesions. Right adrenal gland hypertrophy. 12 mm left adrenal gland nodule measures approximately 9 Hounsfield units, likely adenoma. -Consulted Cardiology, Dr. Arguelles - f/u recs -01/22: Lasix 40mg IVP daily, Spironolactone 25mg daily. CXR - no interval pathology change. -01/19: HOLD LASIX FOR 1 TO 2 DAYS AND CONT MUCINEX. PT PRERENAL AND APPEARS DRY. ON BOTH LASIX AND SPIRONOLACTONE. -SOB APPEARS TO BE SECONDARY TO PULM ETIOLOGY. IMPROVES WITH NEBS. PT WITH RHONCHI B/L. MAY BENEFIT FROM PULM TOILET. -will attempt to obtain company of [facility] for interrogation. -likely deconditioned. will benefit from rehab -01/16: RAPID called due to SOB. BP 80/50's. Bolused 500cc NS. Ordered BIPAP and ABG, however patient refused. Placed back on NC 3L. ProBNP 4070H (less than # on admission) and KACY negative. -01/16: Decrease to Lasix 40mg PO daily (was BID). Admit to telemetry, BNP 4560 on admission Lisinopril 10mg daily Aldactone 25mg PO Daily patient with AICD, will check echo to determine EF CXR 01/03: mild cardiomegaly, mild pulmonary venous congestion. s/p sternotomy, aortic valve replacement, AICD H/O mitral valve replacement with mechanical valve Monitor INR and adjust Coumadin as necessary Cardiac valve replacement 6-7yrs ago Consulted Cardiology, Dr. Arguelles - f/u recs -echocardiogram reviewed. valve leaflets are opening and functional. There is no signficant gradient across the valve. -recommend INR 2.5 to 3.5. STOP Lovenox 3/5 STOP Heparin Drip - cardiac protocol, with bolus (because patient is refusing blood draws) Chronic atrial fibrillation Consulted Cardiology, Dr. Blane Walker f/u recs -Rate controlled -echocardiogram reviewed. valve leaflets are opening and functional. There is no signficant gradient across the valve. -recommend INR 2.5 to 3.5. -See PT/INR trends above Coumadin as above STOP Lovenox 01/11 Cough, acute - will add mucocyst -Mucinex 600mg PO BID -01/28: cough intermittent -01/24 does not complain of cough -01/19-01/22: Persists. Non-productive. Continue Mucinex. -01/15: patient developed productive cough with yellow sputum today. CAD (coronary artery disease) Consulted Cardiology, Dr. Arguelles - f/u recs -Aware of HR in 140's and SOB after eating and low levels of exertion. -unknown graft status. no evidence of ischemia at present -No current angina History of ID (myocardial infarction) HOLD Crestor 10mg PO HS (last dose 01/18- due to elevated LFTs) ROMIs negative x3 EKG paced Denies chest pain Transaminitis, acute 01/31: AST/ALT normalized; consider resuming crestor. 01/30 patient refusing labs. will re-attempt 01/28-01/29: Improving. hold crestor (since 01/18) 01/27: AST 37 / ALT 124 - continue to hold crestor. 01/25-01/26: Patient refused blood work 01/24: 51/164 AST / ALT down trending 01/22-01/23: AST / ALT down trending - continue to hold Crestor 01/21: AST 57 / ALT 188, decreasing. HOLD Crestor 10mg PO HS (last dose 01/18- due to elevated LFTs) 01/20: AST 75 / ALT 205 01/19: AST 70 / ALT 201 - increasing -> hold crestor for 2 nights 01/19, 01/20 01/16: AST 90 / ALT 164 - increasing -> hold Crestor tonight. - AST 77 / ALT 98 -> previously normal. - Continue to monitor Electrolyte Imbalance 01/30 patient refusing labs, will re-attempt 01/21-01/29: Hyponatremia, stable Hyperkalemia - resolved Hypokalemia, Tachycardia HR grossly WNL, continue to monitor 01/20-01/23: HR WNL 01/13: Patient becomes SOB very easily, desaturating to 82% while ambulating. Anytime he eats or gets up, HR climbs into 140's EKG in ER: sinus tachycardia at 100, paced, incomplete RBBB Discontinued cardizem drip of 5mg/h started in the ER Lower extremity edema LE Duplex - negative. see full report. Prophylactic measure Coumadin as above. protonix 40mg daily SCD contraindicated due to LE edema D/C when bed available <Jax Shepherd - Last Filed: 02/12/17 16:19> Objective - Vital Signs/Intake and Output Vital Signs (last 24 hours): Temp Pulse Resp BP Pulse Ox 98 F 87 20 100/69 99 02/12/17 15:49 02/12/17 15:49 02/12/17 15:49 02/12/17 15:49 02/12/17 15:49 Intake and Output: 02/12/17 02/12/17 06:59 18:59 Output Total 600 Balance -600 - Medications Medications: Current Medications Acetylcysteine (Acetylcysteine 20%) 4 ml INH RQ6 [facility] Last Admin: 02/12/17 13:25 Dose: 4 ml Albuterol/Ipratropium (Duoneb 3 Mg/0.5 Mg (3 Ml) Ud) 3 ml INH RQ6 [facility] Last Admin: 02/12/17 13:25 Dose: 3 ml Benzocaine/Menthol (Cepacol Sore Throat) 1 sarah MT Q6H PRN PRN Reason: Sore Throat Last Admin: 02/07/17 01:23 Dose: 1 sarah Budesonide (Pulmicort Respules) 0.5 mg INH RQ12 [facility] Last Admin: 02/12/17 08:41 Dose: 0.5 mg Digoxin (Lanoxin) 0.25 mg PO DAILY@1800 [facility] Last Admin: 02/11/17 17:30 Dose: 0.25 mg Famotidine (Pepcid) 20 mg PO DAILY [facility] Last Admin: 02/12/17 10:21 Dose: 20 mg Furosemide (Lasix) 40 mg PO DAILY [facility] Last Admin: 02/12/17 10:23 Dose: Not Given Guaifenesin (Mucinex La) 600 mg PO BID [facility] Last Admin: 02/12/17 10:22 Dose: 600 mg Prednisone (Prednisone Tab) 40 mg PO DAILY [facility] Last Admin: 02/12/17 10:21 Dose: 40 mg Rosuvastatin Calcium (Crestor) 10 mg PO HS [facility] Last Admin: 02/10/17 21:06 Dose: 10 mg Spironolactone (Aldactone) 25 mg PO DAILY [facility] Last Admin: 02/12/17 10:23 Dose: Not Given Tiotropium [place] (Spiriva) 18 mcg INH RQ24 [facility] Last Admin: 02/12/17 08:41 Dose: 18 mcg - Labs Labs: 02/11/17 10:59 02/11/17 10:59 PT 42.7 SECONDS (9.7-12.2) H* 02/12/17 11:44 INR 3.6 02/12/17 11:44 APTT 37 SECONDS (21-34) H 02/03/17 13:50 Attending/Attestation - Attestation I have personally seen and examined this patient.: Yes I have fully participated in the care of the patient.: Yes I have reviewed all pertinent clinical information, including history, physical exam and plan: Yes Notes (Text): 02/12/17 16:17 Patient seen and examined at bedside with the resident Patient's symptoms complains of cough for with expectoration We will refer to pulmonary for starting antibiotics if needed Patient's INR is 3.6 today. However patient received to 4 mg of Coumadin yesterday with INR of 3.9 and his INR dropped to 3.6 today. Patient's INR is difficult to maintain with the therapeutic range therefore we will give another 4 mg tonight and check INR tomorrow. Discussed the plan of care with the resident and agree with the above history and physical and assessment/plan by the resident Discharge planning is in progress
[2017-02-12] MEDS: guaiFENesin 600 mg ER Tab PO SCH ×2 (10:22→18:18)
[2017-02-12 12:01] LABS: INR 3.6
[2017-02-12] MEDS: Digoxin 250 mcg (0.25 mg) Tab PO SCH (18:18)
[2017-02-13] MEDS: Acetylcysteine 20% Inhal Soln (4ml) INH SCH ×4 (01:30→19:32)
[2017-02-13] MEDS: Budesonide 0.5 mg/2 ml Inhal Susp UD INH SCH (07:34)
[2017-02-13] MEDS: Tiotropium 18 mcg Cap For Inhalation INH SCH (07:35)
[2017-02-13] MEDS: guaiFENesin 600 mg ER Tab PO SCH ×2 (10:05→17:50)
--- NOTE | 2017-02-13 10:39 | CP.PCM.PN ---
<Lacey Walters - Last Filed: 02/13/17 10:36> Subjective - Date & Time of Evaluation Date of Evaluation: 02/13/17 Time of Evaluation: 07:35 - Subjective Subjective: PGY-[address] Gonzalez (covering for DR. Otoole): Pt seen and examined at bedside. Pt without any overnight events. Pt has cough and sob. He reports not being up and walking around very much, stating that he becomes sob. Denies fevers, chills, chest pain, nausea or vomiting. He was again refusing blood work this morning. Other than that he is tolerating his diet, having bowel movement, and denies urinary complaints. Objective - Vital Signs/Intake and Output Vital Signs (last 24 hours): Temp Pulse Resp BP Pulse Ox 97.4 F L 75 18 103/65 100 02/13/17 07:20 02/13/17 07:20 02/13/17 07:20 02/13/17 10:05 02/13/17 07:20 Intake and Output: 02/13/17 02/13/17 06:59 18:59 Intake Total 300 Output Total 500 Balance -200 - Medications Medications: Current Medications Acetylcysteine (Acetylcysteine 20%) 4 ml INH RQ6 ON LICENSE OF [facility] Last Admin: 02/13/17 07:35 Dose: 4 ml Benzocaine/Menthol (Cepacol Sore Throat) 1 sarah MT Q6H PRN PRN Reason: Sore Throat Last Admin: 02/07/17 01:23 Dose: 1 sarah Budesonide (Pulmicort Respules) 0.5 mg INH RQ12 ON LICENSE OF [facility] Last Admin: 02/13/17 07:34 Dose: 0.5 mg Digoxin (Lanoxin) 0.25 mg PO DAILY@1800 ON LICENSE OF [facility] Famotidine (Pepcid) 20 mg PO DAILY ON [facility] OF [facility] Last Admin: 02/13/17 10:05 Dose: 20 mg Furosemide (Lasix) 40 mg PO DAILY ON [facility] OF [facility] Last Admin: 02/13/17 10:05 Dose: 40 mg Guaifenesin (Mucinex La) 600 mg PO BID ON [facility] OF [facility] Last Admin: 02/13/17 10:05 Dose: 600 mg Lisinopril (Zestril) 2.5 mg PO DAILY ON [facility] OF [facility] Last Admin: 02/13/17 10:06 Dose: Not Given Prednisone (Prednisone Tab) 40 mg PO DAILY ON [facility] Last Admin: 02/13/17 10:05 Dose: 40 mg Rosuvastatin Calcium (Crestor) 10 mg PO HS ON [facility] OF [facility] Last Admin: 02/12/17 21:32 Dose: 10 mg Spironolactone (Aldactone) 25 mg PO DAILY ON [facility] OF [facility] Last Admin: 02/13/17 10:06 Dose: Not Given Tiotropium [place] (Spiriva) 18 mcg INH RQ24 ON LICENSE OF [facility] Last Admin: 02/13/17 07:35 Dose: 18 mcg - Labs Labs: 02/11/17 10:59 02/11/17 10:59 PT 42.7 SECONDS (9.7-12.2) H* 02/12/17 11:44 INR 3.6 02/12/17 11:44 APTT 37 SECONDS (21-34) H 02/03/17 13:50 - Constitutional Appears: Non-toxic, No Acute Distress, Chronically Ill - Head Exam Head Exam: ATRAUMATIC, NORMAL INSPECTION - Eye Exam Eye Exam: EOMI, Normal appearance, PERRL Pupil Exam: NORMAL ACCOMODATION - ENT Exam ENT Exam: Mucous Membranes Moist - Respiratory Exam Respiratory Exam: Clear to Ausculation Bilateral, Wheezes, NORMAL BREATHING PATTERN. absent: Accessory Muscle Use, Decreased Breath Sounds, Respiratory Distress - Cardiovascular Exam Cardiovascular Exam: REGULAR RHYTHM, +S1, +S2 - GI/Abdominal Exam GI & Abdominal Exam: Soft, Diminished Bowel Sounds, Normal Bowel Sounds. absent : Distended, Firm, Guarding, Tenderness - Extremities Exam Extremities Exam: Normal Inspection. absent: Calf Tenderness, Pedal Edema - Back Exam Back Exam: NORMAL INSPECTION. absent: CVA tenderness (L), CVA tenderness (R), paraspinal tenderness - Neurological Exam Neurological Exam: Alert, Awake, CN II-XII Intact, Oriented x3 Neuro motor strength exam: Left Upper Extremity: 5, Right Upper Extremity: 5, Left Lower Extremity: 5, Right Lower Extremity: 5 - Psychiatric Exam Psychiatric exam: Normal Affect, Normal Mood - Skin Skin Exam: Dry, Intact, Normal Color, Warm Assessment and Plan - Assessment and Plan (Free Text) Assessment: Assessment: - [facility] will accept pt, waiting on pt's to confirm address that pt will be discharged home to. - Pt not a safe discharge to home due to functional status Numbness and tingling - left sided - resolved - CT head - normal head CT Shortness of breath - secondary to chronic COPD vs pneumonia vs malignancy - CXR 02/11 - New opacity at right lung base suspicious for pneumonia. Questionable opacity at left base. Mild congestive change. - CT Chest HR 02/05 - No definite CT evidence of interstitial lung disease. Cardiomegaly and [id number] pulmonary vascular congestion. Interval appearance of new round opacities/ nodules in the right upper lobe and left lower lobe since the previous study. The differential diagnosis includes multifocal pneumonia. The possibility of neoplasm is not totally excluded. Follow-up reassessment is recommended. Otherwise no significant interval change since the previous study dated 01/22/2017. COPD (chronic obstructive pulmonary disease) 02/13: Duonebs every 4 hours for SOB 02/11: Added mucomyst to breathing treatments. Will get repeat CXR 02/05: CT chest with high resolution - see above 02/01: Prednisone 40mg PO daily; Taper on discharge. Will require home oxygen. 01/29: Stop Solumedrol IVP; Start Prednisone 40mg PO daily; Taper on discharge. Will require home oxygen. -01/28: Solumedrol reduced to 40mg IVP Q12H. Prior to discharge, change Solumedrol -> Prednisone -01/19-01/28: Continue BIPAP, patient more compliant (sometimes refuses despite being SOB). -01/16: RAPID called due to SOB. BP 80/50's. Bolused 500cc NS. Ordered BIPAP and ABG, however patient refused. Placed back on NC 3L. -01/14-01/15: Patient complaining of SOB with exertion and orthopnea. Maintain Head of bed elevated 30 degrees. -01/13: PT session: 98% O2 at 2L at rest, 96% room air at rest sitting, 82% room air during ambulation, 88% at 2 liter ambulation. -01/12: Walked 20 steps today down bruno, and patient became dizzy, SOB, and almost collapsed. - Consulted Pulmonology, Dr. Cobb, f/u recs -planning for home O2 - Aware of HR in 140's and SOB after eating and low levels of exertion. -LDH 654H -HIV - negative -persistent shortness of breath - Patient with long history of smoking most likely has underlying COPD. Nebulizer treatment. Inhaled steroids. Spiriva. PFT as out pt Systolic dysfunction with acute on chronic heart failure - 02/11: dig level low, increase to 0.25 - EF 10-15%, mechanical MV- no regurg, tricuspid regurg. see full report -Chest CT 01/22 - Cardiomegaly. Cardiac valve prosthesis. Left-sided AICD. Dense coronary artery calcifications. -Small consolidation (favored to reflect atelectasis rather than pneumonia) at the left lung base. -Bibasilar atelectasis. Small airways disease. Mild ground-glass and fine nodular opacities within the right upper lobe, possibly infectious or inflammatory. -7 mm left upper lobe pulmonary nodule. Guidelines by the Fleischner society (radiology 2005; 237:390 5-400) suggests that in patients with low risk for lung cancer, with nodules less than or equal to 8 mm in diameter should have follow-up in approximately 6-12 months. In patients with high-risk, including smokers, follow-up is recommended 3-6 months. Patient with a known malignancy for risk for metastases should receive 3 month follow-up. -Hepatic capsular calcification. -Numerous low-density lesions throughout the liver, possibly cysts. Decompressed gallbladder limits evaluation. Bilateral hypodense renal lesions. Right adrenal gland hypertrophy. 12 mm left adrenal gland nodule measures approximately 9 Hounsfield units, likely adenoma. -Consulted Cardiology, Dr. Arguelles - f/u recs -01/22: Lasix 40mg IVP daily, Spironolactone 25mg daily. CXR - no interval pathology change. -01/19: HOLD LASIX FOR 1 TO 2 DAYS AND CONT MUCINEX. PT PRERENAL AND APPEARS DRY. ON BOTH LASIX AND SPIRONOLACTONE. -SOB APPEARS TO BE SECONDARY TO PULM ETIOLOGY. IMPROVES WITH NEBS. PT WITH RHONCHI B/L. MAY BENEFIT FROM PULM TOILET. -will attempt to obtain company of [facility] for interrogation. -likely deconditioned. will benefit from rehab -01/16: RAPID called due to SOB. BP 80/50's. Bolused 500cc NS. Ordered BIPAP and ABG, however patient refused. Placed back on NC 3L. ProBNP 4070H (less than # on admission) and KACY negative. -01/16: Decrease to Lasix 40mg PO daily (was BID). Admit to telemetry, BNP 4560 on admission Lisinopril 10mg daily Aldactone 25mg PO Daily patient with AICD, will check echo to determine EF CXR 01/03: mild cardiomegaly, mild pulmonary venous congestion. s/p sternotomy, aortic valve replacement, AICD H/O mitral valve replacement with mechanical valve Monitor INR and adjust Coumadin as necessary Cardiac valve replacement 6-7yrs ago Consulted Cardiology, Dr. Arguelles - f/u recs -echocardiogram reviewed. valve leaflets are opening and functional. There is no signficant gradient across the valve. -recommend INR 2.5 to 3.5. STOP Lovenox 3/5 STOP Heparin Drip - cardiac protocol, with bolus (because patient is refusing blood draws) Chronic atrial fibrillation Consulted Cardiology, Dr. Arguelles - f/u recs -Rate controlled -echocardiogram reviewed. valve leaflets are opening and functional. There is no significant gradient across the valve. -recommend INR 2.5 to 3.5. -See PT/INR trends above Coumadin as above - Patient's INR is difficult to maintain with the therapeutic range therefore we will give another 4 mg tonight and check INR tomorrow. Will try to convince the patient to get bloodwork done today. STOP Lovenox / Cough, acute - will add mucocyst -Mucinex 600mg PO BID -01/28: cough intermittent -01/24 does not complain of cough -01/19-01/22: Persists. Non-productive. Continue Mucinex. -01/15: patient developed productive cough with yellow sputum today. CAD (coronary artery disease) Consulted Cardiology, Dr. Arguelles - f/u recs -Aware of HR in 140's and SOB after eating and low levels of exertion. -unknown graft status. no evidence of ischemia at present -No current angina History of DC (myocardial infarction) Crestor 10mg PO HS resumed HOLD Crestor 10mg PO HS (last dose 01/18- due to elevated LFTs) ROMIs negative x3 EKG paced Denies chest pain Transaminitis, acute Crestor resumed 01/31: AST/ALT normalized; consider resuming crestor. 01/30 patient refusing labs. will re-attempt 01/28-01/29: Improving. hold crestor (since 01/18) 01/27: AST 37 / ALT 124 - continue to hold crestor. 01/25-01/26: Patient refused blood work 01/24: 51/164 AST / ALT down trending 01/22-01/23: AST / ALT down trending - continue to hold Crestor 01/21: AST 57 / ALT 188, decreasing. HOLD Crestor 10mg PO HS (last dose 01/18- due to elevated LFTs) 01/20: AST 75 / ALT 205 01/19: AST 70 / ALT 201 - increasing -> hold crestor for 2 nights 01/19, 01/20 01/16: AST 90 / ALT 164 - increasing -> hold Crestor tonight. - AST 77 / ALT 98 -> previously normal. - Continue to monitor Electrolyte Imbalance 01/30 patient refusing labs, will re-attempt 01/21-01/29: Hyponatremia, stable Hyperkalemia - resolved Hypokalemia, Tachycardia HR grossly WNL, continue to monitor 01/20-01/23: HR WNL 01/13: Patient becomes SOB very easily, desaturating to 82% while ambulating. Anytime he eats or gets up, HR climbs into 140's EKG in ER: sinus tachycardia at 100, paced, incomplete RBBB Discontinued cardizem drip of 5mg/h started in the ER Lower extremity edema LE Duplex - negative. see full report. Prophylactic measure Coumadin as above. protonix 40mg daily SCD contraindicated due to LE edema D/C when bed available <Lenny Gonzalez - Last Filed: 02/13/17 15:34> Objective - Vital Signs/Intake and Output Vital Signs (last 24 hours): Temp Pulse Resp BP Pulse Ox 97.4 F L 85 18 103/65 99 02/13/17 07:20 02/13/17 10:10 02/13/17 10:10 02/13/17 10:10 02/13/17 10:10 Intake and Output: 02/13/17 02/13/17 06:59 18:59 Intake Total 300 Output Total 500 Balance -200 - Medications Medications: Current Medications Acetylcysteine (Acetylcysteine 20%) 4 ml INH RQ6 JC Last Admin: 02/13/17 13:15 Dose: 4 ml Benzocaine/Menthol (Cepacol Sore Throat) 1 sarah MT Q6H PRN PRN Reason: Sore Throat Last Admin: 02/07/17 01:23 Dose: 1 sarah Budesonide (Pulmicort Respules) 0.5 mg INH RQ12 ON LICENSE OF [facility] Last Admin: 02/13/17 07:34 Dose: 0.5 mg Digoxin (Lanoxin) 0.25 mg PO DAILY@1800 ON [facility] Famotidine (Pepcid) 20 mg PO DAILY ON [facility] Last Admin: 02/13/17 10:05 Dose: 20 mg Furosemide (Lasix) 40 mg PO DAILY ON [facility] Last Admin: 02/13/17 10:05 Dose: 40 mg Guaifenesin (Mucinex La) 600 mg PO BID ON [facility] Last Admin: 02/13/17 10:05 Dose: 600 mg Ciprofloxacin (Cipro 400mg/200ml Dsw) 200 mls @ 133.333 mls/hr IVPB Q8H ON LICENSE OF [facility] Last Admin: 02/13/17 14:49 Dose: 133.333 mls/hr Cefepime HCl (Maxipime Iv 2 Gm Premix) 100 mls @ 100 mls/hr IVPB Q12 ON [facility] OF [facility] Stop: 02/18/17 22:01 Vancomycin/Sodium Chloride (Vancocin) 200 mls @ 100 mls/hr IVPB DAILY ON LICENSE OF [facility] Ipratropium [place] (Atrovent Hfa) 2 puff IH RQ4 ON LICENSE OF [facility] Lisinopril (Zestril) 2.5 mg PO DAILY ON [facility] OF [facility] Last Admin: 02/13/17 10:06 Dose: Not Given Prednisone (Prednisone Tab) 20 mg PO DAILY ON [facility] Rosuvastatin Calcium (Crestor) 10 mg PO HS ON LICENSE [facility] Last Admin: 02/12/17 21:32 Dose: 10 mg Spironolactone (Aldactone) 25 mg PO DAILY ON [facility] Last Admin: 02/13/17 10:06 Dose: Not Given Tiotropium [place] (Spiriva) 18 mcg INH RQ24 ON [facility] Last Admin: 02/13/17 07:35 Dose: 18 mcg Warfarin Sodium (Coumadin) 4 mg PO 1800 ON [facility] Stop: 02/13/17 18:01 - Labs Labs: 02/13/17 14:55 02/13/17 14:55 PT 44.9 SECONDS (9.7-12.2) H* 02/13/17 14:35 INR 3.7 02/13/17 14:35 APTT 37 SECONDS (21-34) H 02/03/17 13:50 Attending/Attestation - Attestation I have personally seen and examined this patient.: Yes I have fully participated in the care of the patient.: Yes I have reviewed all pertinent clinical information, including history, physical exam and plan: Yes Notes (Text): 02/13/17 15:32 Medical attending: Patient was seen and examined by me, agrees the above note by medical practice assistant. At this time the patient does not have any acute changes however review of her most recent chest x-ray suggests that he does have a pneumonia going on. At this time the resident has started IV antibiotics, I agree with this -my concern is that because the patient has been here for a very prolonged period of time that this is very likely hospital-acquired pneumonia/healthcare acquired pneumonia. Continue to monitor the patient's white blood cell count, temperature fevers, cultures Thank you, Lenny Gonzalez
[2017-02-13] MEDS: Albuterol-Ipratrop 3 mg / 0.5 (3 ml) UD INH SCH (13:16)
[2017-02-13] MEDS ORDERED: Ipratropium 17 mcg/puff-200 puff/12.5 gm HFA Inh IH SCH ×2 (14:00→16:00)
[2017-02-13] MEDS: Ciprofloxacin 400mg/200ml D5W 200 ML IVPB SCH ×2 (14:49→22:16)
[2017-02-13 14:52] LABS: INR 3.7
[2017-02-13 15:02] LABS: BASO % 0.3 % (0.0-2.0); EOS % 0.5 % (0.0-4.0); LYMPH # 0.5 K/uL (1.0-4.3); LYMPH % 10.2 % (20.0-40.0); MEAN CELL VOLUME 81.8 fL (80.0-94.0); MEAN CORPUSCULAR HEMOGLOBIN 25.6 pg (27.0-31.0); MEAN CORPUSCULAR HGB CONC 31.3 g/dL (33.0-37.0); MEAN PLATELET VOLUME 7.7 fL (7.2-11.7); MONO # 0.5 K/uL (0.0-0.8); MONO % 9.3 % (0.0-10.0); NRBC % 0.1 % (0.0-2.0); RED CELL DISTRIBUTION WIDTH 17.8 % (11.5-14.5); WHITE BLOOD COUNT 5.1 K/uL (4.8-10.8)
[2017-02-13 15:09] LABS: CHLORIDE 93 mmol/L (98-107); SODIUM 133 mmol/L (132-148)
[2017-02-13 15:11] LABS: ALKALINE PHOSPHATASE 71 U/L (38-126); AST/SGOT 65 U/L (17-59); BILIRUBIN,TOTAL 0.4 mg/dL (0.2-1.3); CARBON DIOXIDE 29 mmol/L (22-30); GFR AFRICAN-AMERICAN > 60; TOTAL PROTEIN 6.6 g/dL (6.3-8.3)
[2017-02-13 15:12] LABS: ALT/SGPT 124 U/L (21-72); BLOOD UREA NITROGEN 24 mg/dL (9-20); CALCIUM 9.3 mg/dl (8.6-10.4); GLUCOSE,RANDOM 173 mg/dL (75-110)
[2017-02-13 15:13] LABS: POTASSIUM 5.7 mmol/L (3.6-5.2)
--- NOTE | 2017-02-13 15:52 | CP.PCM.CON ---
History of Present Illness - History of Present Illness History of Present Illness: dictated Past Patient History - Infectious Disease Hx of Infectious Diseases: None - Past Medical History & Family History Past Medical History?: Yes - Past Social History Smoking Status: Light Smoker < 10 Cigarettes Daily - CARDIAC Hx Cardiac Disorders: (A-fib) Hx Congestive Heart Failure: Yes Hx Hypertension: Yes - PULMONARY Hx Chronic Obstructive Pulmonary Disease (COPD): Yes - MUSCULOSKELETAL/RHEUMATOLOGICAL Hx Falls: No - PSYCHIATRIC Hx Substance Use: No - SURGICAL HISTORY Hx Coronary Artery Bypass Graft: Yes (4 yrs ago) - ANESTHESIA Hx Anesthesia: Yes Hx Anesthesia Reactions: No Hx Malignant Hyperthermia: No Meds Home Medications: Home Medication List Medication Instructions Recorded Confirmed Type Albuterol/Ipratropium [Duoneb 3 3 ml INH RQ6 neb 01/29/17 Rx mg/0.5 mg (3 ml) UD] Budesonide [Pulmicort Respules] 0.5 mg INH RQ12 neb 01/29/17 Rx Digoxin [Lanoxin] 0.125 mg PO DAILY@1800 tab 01/29/17 Rx Furosemide [Lasix] 40 mg PO DAILY tab 01/29/17 Rx Rosuvastatin Calcium [Crestor] 10 mg PO HS tab 01/29/17 Rx Spironolactone [Aldactone] 25 mg PO DAILY tab 01/29/17 Rx Tiotropium [Spiriva] 18 mcg INH RQ24 cap 01/29/17 Rx Warfarin [Coumadin] 3 mg PO 1800 tab 01/29/17 Rx Warfarin [Coumadin] 4 mg PO 1800 tab 01/29/17 Rx guaiFENesin [Mucinex LA] 600 mg PO BID tab 01/29/17 Rx predniSONE [predniSONE Tab] 40 mg PO DAILY tab 01/29/17 Rx Allergies/Adverse Reactions: Allergies Allergy/AdvReac Type Severity Reaction Status Date / Time No Known Allergies Allergy Verified 01/03/17 12:47 - Medications Medications: Current Medications Acetylcysteine (Acetylcysteine 20%) 4 ml INH RQ6 JC Last Admin: 02/13/17 13:15 Dose: 4 ml Benzocaine/Menthol (Cepacol Sore Throat) 1 sarah MT Q6H PRN PRN Reason: Sore Throat Last Admin: 02/07/17 01:23 Dose: 1 sarah Budesonide (Pulmicort Respules) 0.5 mg INH RQ12 JC Last Admin: 02/13/17 07:34 Dose: 0.5 mg Digoxin (Lanoxin) 0.25 mg PO DAILY@1800 [facility] Famotidine (Pepcid) 20 mg PO DAILY [facility] Last Admin: 02/13/17 10:05 Dose: 20 mg Furosemide (Lasix) 40 mg PO DAILY [facility] Last Admin: 02/13/17 10:05 Dose: 40 mg Guaifenesin (Mucinex La) 600 mg PO BID [facility] Last Admin: 02/13/17 10:05 Dose: 600 mg Ciprofloxacin (Cipro 400mg/200ml Dsw) 200 mls @ 133.333 mls/hr IVPB Q8H [facility] Last Admin: 02/13/17 14:49 Dose: 133.333 mls/hr Cefepime HCl (Maxipime Iv 2 Gm Premix) 100 mls @ 100 mls/hr IVPB Q12 [facility] Stop: 02/18/17 22:01 Vancomycin/Sodium Chloride (Vancocin) 200 mls @ 100 mls/hr IVPB DAILY [facility] Ipratropium [place] (Atrovent Hfa) 2 puff IH RQ4 [facility] Lisinopril (Zestril) 2.5 mg PO DAILY [facility] Last Admin: 02/13/17 10:06 Dose: Not Given Prednisone (Prednisone Tab) 20 mg PO DAILY [facility] Rosuvastatin Calcium (Crestor) 10 mg PO HS [facility] Last Admin: 02/12/17 21:32 Dose: 10 mg Spironolactone (Aldactone) 25 mg PO DAILY [facility] Last Admin: 02/13/17 10:06 Dose: Not Given Tiotropium [place] (Spiriva) 18 mcg INH RQ24 [facility] Last Admin: 02/13/17 07:35 Dose: 18 mcg Warfarin Sodium (Coumadin) 4 mg PO 1800 [facility] Stop: 02/13/17 18:01 Results - Vital Signs Recent Vital Signs: Last Vital Signs Temp 98.1 F 02/13/17 15:41 Pulse 73 02/13/17 15:41 Resp 20 02/13/17 15:41 BP 103/66 02/13/17 15:41 Pulse Ox 99 02/13/17 15:41 - Labs Result Diagrams: 02/13/17 14:55 02/13/17 14:55 Labs: Laboratory Results - last 24 hr 02/13/17 02/13/17 14:35 14:55 WBC 5.1 RBC 5.02 Hgb 12.8 Hct 41.0 MCV 81.8 MCH 25.6 L MCHC 31.3 L RDW 17.8 H Plt Count 195 MPV 7.7 Neut % (Auto) 79.7 H Lymph % (Auto) 10.2 L Garvin % (Auto) 9.3 Eos % (Auto) 0.5 Baso % (Auto) 0.3 Neut # 4.1 Lymph # 0.5 L Garvin # 0.5 Eos # 0.0 Baso # 0.0 PT 44.9 H* INR 3.7 Sodium 133 Potassium 5.7 H Chloride 93 L Carbon Dioxide 29 Anion Gap 17 BUN 24 H Creatinine 0.9 Est GFR ( Amer) > 60 Est GFR (Non-Af Amer) > 60 Random Glucose 173 H Calcium 9.3 Total Bilirubin 0.4 AST 65 H D ALT 124 H D Alkaline Phosphatase 71 Total Protein 6.6 Albumin 3.4 L Globulin 3.3 Albumin/Globulin Ratio 1.0
[2017-02-13] MEDS: Vancomycin 1 gm/NS 200 ml 200 ML IVPB SCH (16:47)
[2017-02-13] MEDS: Digoxin 250 mcg (0.25 mg) Tab PO SCH (17:50)
[2017-02-13] MEDS ORDERED: Digoxin 125 mcg (0.125 mg) Tab PO SCH (18:00)
[2017-02-13] MEDS: Ipratropium 0.02% Inhal Soln (0.5 mg/2.5 ml) UD IH SCH (19:32)
[2017-02-13] MEDS: Albuterol 0.042% Inhal Sol (1.25 mg/3 mL) UD INH SCH ×2 (19:32→23:52)
--- NOTE | 2017-02-13 22:08 | CON ---
DATE: 02/13/2017 He has been here since December. I was called because he had a new infiltrate on his x-ray. He has a history which was done on 12/11. A 71-year-old with history of [place], coronary artery disease, CABG, history of valve replacement, came i n. He was complaining of shortness of breath and dizziness, and was getting worse. He also had pres sure, and he has been worked up. He has history of coronary artery disease, [place], arrhythmias. He was traveling from [place], and he is basically homeless. He has been here with respiratory symptoms as well as cardiac symptoms, and has been taking care of. He has received antibiotics before, and now the antibiotics have been restarted as there is a new infiltrate, and I am asked to evaluate it. PAST MEDICAL HISTORY: Significant for coronary artery disease, [place], arrhythmias. He had had valve re placement, it seems aortic valve, CABG with vessel harvest from right leg. FAMILY HISTORY: Negative. SOCIAL HISTORY: He smokes 2-3 cigarettes for 60 years. Denies alcohol, drug abuse. He is homeless. He used to live in a car, and he was traveling from [place]. He denies any fever or chills at this time. He is coughing up yellowish phlegm he says. He remains afebrile. Temperature is 98.1, pulse is 73, blood pressure is 103/66, respirations are 20 . That is noted. On admission, he came in with lethargy. He has history of COPD, and CABG. He has no known allergies. On examination I find his vitals I already discussed. HEAD: Atraumatic, normocephalic. He is elderly male. NECK: Supple. EYES: Unremarkable. Mucous membrane is moist. LUNGS: Have bilateral expiratory wheezing and rales. HEART: S1, S2 is regular. No murmurs appreciated. ABDOMEN: Soft, nontender, no guarding, no rigidity present. EXTREMITIES: Did have ankle edema bilaterally. SKIN: Warm to touch. He has no fever, however, he says he is producing yellowish sputum. White count is 5.1, hemoglobin 12.8, hematocrit 41, platelet count is 195, and potassium was 5.7. Hi s liver enzymes are: AST 65, ALT is 124, albumin is 3.4. Chest x-ray showed new opacity at the right lung base suspicious for pneumonia, questionable opacity at left lung. Mild congestive changes. So, at this time, he is started on vancomycin. He is started on Maxipime, as well as Cipro. Will re peat the labs tomorrow. Also of interest would be to do a BNP tomorrow, as he does have a history of severe cardiac history with valve replacement, and will follow. To do vancomycin peak and trough on the 3rd dose, and monitor the x-ray, and to continue his respiratory treatments as advised by the lmonary. George Parra MD cc: [id number] TT: 02/13/2017 22:07:34 Confirmation # [id number] Dictation # [id number]
[2017-02-13] MEDS: Cefepime IV 2 gm in Dextrose 100 ML IVPB SCH (22:15)
--- NOTE | 2017-02-14 01:25 | CP.PCM.PN ---
<Wale Castillo - Last Filed: 02/14/17 01:22> Subjective - Date & Time of Evaluation Date of Evaluation: 02/14/17 Time of Evaluation: 01:22 - Subjective Subjective: PGY-[address] Diaz service (hospitalist covering) Pt seen and examined at bedside. Pt states that the breathing treatments help minimally. He continues to have cough and sob with any ambulation. Denies any fevers, chills, chest pain, nausea or vomiting. Objective - Vital Signs/Intake and Output Vital Signs (last 24 hours): Temp Pulse Resp BP Pulse Ox 98.1 F 73 20 103/66 99 02/13/17 15:41 02/13/17 16:00 02/13/17 15:41 02/13/17 15:41 02/13/17 15:41 Intake and Output: 02/13/17 02/14/17 18:59 06:59 Intake Total 420 250 Output Total 400 Balance 420 -150 - Medications Medications: Current Medications Acetylcysteine (Acetylcysteine 20%) 4 ml INH RQ6 [facility] Last Admin: 02/13/17 19:32 Dose: 4 ml Albuterol Sulfate (Albuterol 0.042% Inhal Laura (1.25mg/3ml) Ud) 1.25 mg INH RQ4 [facility] Last Admin: 02/13/17 23:52 Dose: Not Given Benzocaine/Menthol (Cepacol Sore Throat) 1 sarah MT Q6H PRN PRN Reason: Sore Throat Last Admin: 02/07/17 01:23 Dose: 1 sarah Budesonide (Pulmicort Respules) 0.5 mg INH RQ12 [facility] Last Admin: 02/13/17 07:34 Dose: 0.5 mg Digoxin (Lanoxin) 0.25 mg PO DAILY@1800 [facility] Last Admin: 02/13/17 17:50 Dose: 0.25 mg Famotidine (Pepcid) 20 mg PO DAILY [facility] Last Admin: 02/13/17 10:05 Dose: 20 mg Furosemide (Lasix) 40 mg PO DAILY [facility] Last Admin: 02/13/17 10:05 Dose: 40 mg Guaifenesin (Mucinex La) 600 mg PO BID [facility] Last Admin: 02/13/17 17:50 Dose: 600 mg Ciprofloxacin (Cipro 400mg/200ml Dsw) 200 mls @ 133.333 mls/hr IVPB Q8H [facility] Last Admin: 02/13/17 22:16 Dose: 133.333 mls/hr Cefepime HCl (Maxipime Iv 2 Gm Premix) 100 mls @ 100 mls/hr IVPB Q12 [facility] Stop: 02/18/17 22:01 Last Admin: 02/13/17 22:15 Dose: 100 mls/hr Vancomycin/Sodium Chloride (Vancocin) 200 mls @ 100 mls/hr IVPB DAILY [facility] Last Admin: 02/13/17 16:47 Dose: 100 mls/hr Ipratropium [place] (Atrovent) 0.5 mg IH RQ4 [facility] Last Admin: 02/13/17 19:32 Dose: 0.5 mg Lisinopril (Zestril) 2.5 mg PO DAILY [facility] Last Admin: 02/13/17 10:06 Dose: Not Given Prednisone (Prednisone Tab) 20 mg PO DAILY [facility] Rosuvastatin Calcium (Crestor) 10 mg PO HS [facility] Last Admin: 02/13/17 22:15 Dose: 10 mg Spironolactone (Aldactone) 25 mg PO DAILY [facility] Last Admin: 02/13/17 10:06 Dose: Not Given Tiotropium [place] (Spiriva) 18 mcg INH RQ24 [facility] Last Admin: 02/13/17 07:35 Dose: 18 mcg - Labs Labs: 02/13/17 14:55 02/13/17 14:55 PT 44.9 SECONDS (9.7-12.2) H* 02/13/17 14:35 INR 3.7 02/13/17 14:35 APTT 37 SECONDS (21-34) H 02/03/17 13:50 - Constitutional Appears: Non-toxic, No Acute Distress - Head Exam Head Exam: ATRAUMATIC, NORMOCEPHALIC - Eye Exam Eye Exam: Normal appearance - ENT Exam ENT Exam: Mucous Membranes Moist - Respiratory Exam Respiratory Exam: Rhonchi, NORMAL BREATHING PATTERN - Cardiovascular Exam Cardiovascular Exam: +S1, +S2 - GI/Abdominal Exam GI & Abdominal Exam: Soft, Normal Bowel Sounds - Neurological Exam Neurological Exam: Alert, Awake - Skin Skin Exam: Dry, Warm Assessment and Plan - Assessment and Plan (Free Text) Assessment: - [facility] will accept pt, waiting on pt's to confirm address that pt will be discharged home to. - Pt not a safe discharge to home due to functional status Numbness and tingling - left sided - resolved - CT head - normal head CT Shortness of breath - secondary to chronic COPD vs pneumonia - Cefepime, Vanc and Cipro started (02/13) - ID consulted (Fidel) help appreciated - f/u recs - Blood and sputum Cxs (02/13) f/u - CXR 02/11 - New opacity at right lung base suspicious for pneumonia. Questionable opacity at left base. Mild congestive change. - CT Chest HR 02/05 - No definite CT evidence of interstitial lung disease. Cardiomegaly and [id number] pulmonary vascular congestion. Interval appearance of new round opacities/ nodules in the right upper lobe and left lower lobe since the previous study. The differential diagnosis includes multifocal pneumonia. The possibility of neoplasm is not totally excluded. Follow-up reassessment is recommended. Otherwise no significant interval change since the previous study dated 01/22/2017. COPD (chronic obstructive pulmonary disease) 02/13: Duonebs every 4 hours for SOB 02/11: Added mucomyst to breathing treatments. Will get repeat CXR 02/05: CT chest with high resolution - see above 02/01: Prednisone 40mg PO daily; Taper on discharge. Will require home oxygen. 01/29: Stop Solumedrol IVP; Start Prednisone 40mg PO daily; Taper on discharge. Will require home oxygen. -01/28: Solumedrol reduced to 40mg IVP Q12H. Prior to discharge, change Solumedrol -> Prednisone -01/19-01/28: Continue BIPAP, patient more compliant (sometimes refuses despite being SOB). -01/16: RAPID called due to SOB. BP 80/50's. Bolused 500cc NS. Ordered BIPAP and ABG, however patient refused. Placed back on NC 3L. -01/14-01/15: Patient complaining of SOB with exertion and orthopnea. Maintain Head of bed elevated 30 degrees. -01/13: PT session: 98% O2 at 2L at rest, 96% room air at rest sitting, 82% room air during ambulation, 88% at 2 liter ambulation. -01/12: Walked 20 steps today down bruno, and patient became dizzy, SOB, and almost collapsed. - Consulted Pulmonology, Dr. Cobb, f/u recs -planning for home O2 - Aware of HR in 140's and SOB after eating and low levels of exertion. -LDH 654H -HIV - negative -persistent shortness of breath - Patient with long history of smoking most likely has underlying COPD. Nebulizer treatment. Inhaled steroids. Spiriva. PFT as out pt Systolic dysfunction with acute on chronic heart failure - 02/11: dig level low, increase to 0.25 - EF 10-15%, mechanical MV- no regurg, tricuspid regurg. see full report -Chest CT 01/22 - Cardiomegaly. Cardiac valve prosthesis. Left-sided AICD. Dense coronary artery calcifications. -Small consolidation (favored to reflect atelectasis rather than pneumonia) at the left lung base. -Bibasilar atelectasis. Small airways disease. Mild ground-glass and fine nodular opacities within the right upper lobe, possibly infectious or inflammatory. -7 mm left upper lobe pulmonary nodule. Guidelines by the Fleischner society (radiology 2005; 237:390 5-400) suggests that in patients with low risk for lung cancer, with nodules less than or equal to 8 mm in diameter should have follow-up in approximately 6-12 months. In patients with high-risk, including smokers, follow-up is recommended 3-6 months. Patient with a known malignancy for risk for metastases should receive 3 month follow-up. -Hepatic capsular calcification. -Numerous low-density lesions throughout the liver, possibly cysts. Decompressed gallbladder limits evaluation. Bilateral hypodense renal lesions. Right adrenal gland hypertrophy. 12 mm left adrenal gland nodule measures approximately 9 Hounsfield units, likely adenoma. -Consulted Cardiology, Dr. Arguelles - f/u recs -01/22: Lasix 40mg IVP daily, Spironolactone 25mg daily. CXR - no interval pathology change. -01/19: HOLD LASIX FOR 1 TO 2 DAYS AND CONT MUCINEX. PT PRERENAL AND APPEARS DRY. ON BOTH LASIX AND SPIRONOLACTONE. -SOB APPEARS TO BE SECONDARY TO PULM ETIOLOGY. IMPROVES WITH NEBS. PT WITH RHONCHI B/L. MAY BENEFIT FROM PULM TOILET. -will attempt to obtain company of [facility] for interrogation. -likely deconditioned. will benefit from rehab -01/16: RAPID called due to SOB. BP 80/50's. Bolused 500cc NS. Ordered BIPAP and ABG, however patient refused. Placed back on NC 3L. ProBNP 4070H (less than # on admission) and KACY negative. -01/16: Decrease to Lasix 40mg PO daily (was BID). Admit to telemetry, BNP 4560 on admission Lisinopril 10mg daily Aldactone 25mg PO Daily patient with AICD, will check echo to determine EF CXR 01/03: mild cardiomegaly, mild pulmonary venous congestion. s/p sternotomy, aortic valve replacement, AICD H/O mitral valve replacement with mechanical valve Monitor INR and adjust Coumadin as necessary Cardiac valve replacement 6-7yrs ago Consulted Cardiology, Dr. Arguelles - f/u recs -echocardiogram reviewed. valve leaflets are opening and functional. There is no signficant gradient across the valve. -recommend INR 2.5 to 3.5. STOP Lovenox 3/5 STOP Heparin Drip - cardiac protocol, with bolus (because patient is refusing blood draws) Chronic atrial fibrillation Consulted Cardiology, Dr. Arguelles - f/u recs -Rate controlled -echocardiogram reviewed. valve leaflets are opening and functional. There is no significant gradient across the valve. -recommend INR 2.5 to 3.5. -See PT/INR trends above Coumadin as above - Patient's INR is difficult to maintain with the therapeutic range therefore we will give another 4 mg tonight and check INR tomorrow. Will try to convince the patient to get bloodwork done today. STOP Lovenox 3/5 Cough, acute - will add mucocyst -Mucinex 600mg PO BID -01/28: cough intermittent -01/24 does not complain of cough -01/19-01/22: Persists. Non-productive. Continue Mucinex. -01/15: patient developed productive cough with yellow sputum today. CAD (coronary artery disease) Consulted Cardiology, Dr. Arguelles - f/u recs -Aware of HR in 140's and SOB after eating and low levels of exertion. -unknown graft status. no evidence of ischemia at present -No current angina History of IN (myocardial infarction) Crestor 10mg PO HS resumed HOLD Crestor 10mg PO HS (last dose 01/18- due to elevated LFTs) ROMIs negative x3 EKG paced Denies chest pain Transaminitis, acute Crestor resumed 01/31: AST/ALT normalized; consider resuming crestor. 01/30 patient refusing labs. will re-attempt 01/28-01/29: Improving. hold crestor (since 01/18) 01/27: AST 37 / ALT 124 - continue to hold crestor. 01/25-01/26: Patient refused blood work 01/24: 51/164 AST / ALT down trending 01/22-01/23: AST / ALT down trending - continue to hold Crestor 01/21: AST 57 / ALT 188, decreasing. HOLD Crestor 10mg PO HS (last dose 01/18- due to elevated LFTs) 01/20: AST 75 / ALT 205 01/19: AST 70 / ALT 201 - increasing -> hold crestor for 2 nights 01/19, 01/20 01/16: AST 90 / ALT 164 - increasing -> hold Crestor tonight. - AST 77 / ALT 98 -> previously normal. - Continue to monitor Electrolyte Imbalance 01/30 patient refusing labs, will re-attempt 01/21-01/29: Hyponatremia, stable Hyperkalemia - resolved Hypokalemia, Tachycardia HR grossly WNL, continue to monitor 01/20-01/23: HR WNL 01/13: Patient becomes SOB very easily, desaturating to 82% while ambulating. Anytime he eats or gets up, HR climbs into 140's EKG in ER: sinus tachycardia at 100, paced, incomplete RBBB Discontinued cardizem drip of 5mg/h started in the ER Lower extremity edema LE Duplex - negative. see full report. Prophylactic measure Coumadin as above. protonix 40mg daily SCD contraindicated due to LE edema D/C when bed available <Lenny Gonzalez H - Last Filed: 02/14/17 10:41> Objective - Vital Signs/Intake and Output Vital Signs (last 24 hours): Temp Pulse Resp BP Pulse Ox 97.7 F 83 18 110/63 100 02/14/17 07:15 02/14/17 09:46 02/14/17 07:15 02/14/17 09:46 02/14/17 07:15 Intake and Output: 02/14/17 02/14/17 06:59 18:59 Intake Total 250 Output Total 975 Balance -725 - Medications Medications: Current Medications Acetylcysteine (Acetylcysteine 20%) 4 ml INH RQ6 [facility] Last Admin: 02/14/17 07:15 Dose: 4 ml Albuterol Sulfate (Albuterol 0.042% Inhal Laura (1.25mg/3ml) Ud) 1.25 mg INH RQ4 [facility] Last Admin: 02/14/17 07:15 Dose: 1.25 mg Benzocaine/Menthol (Cepacol Sore Throat) 1 sarah MT Q6H PRN PRN Reason: Sore Throat Last Admin: 02/14/17 09:39 Dose: 1 sarah Budesonide (Pulmicort Respules) 0.5 mg INH RQ12 [facility] Last Admin: 02/13/17 07:34 Dose: 0.5 mg Digoxin (Lanoxin) 0.25 mg PO DAILY@1800 [facility] Last Admin: 02/13/17 17:50 Dose: 0.25 mg Famotidine (Pepcid) 20 mg PO DAILY [facility] Last Admin: 02/14/17 09:40 Dose: 20 mg Furosemide (Lasix) 40 mg PO DAILY [facility] Last Admin: 02/13/17 10:05 Dose: 40 mg Guaifenesin (Mucinex La) 600 mg PO BID [facility] Last Admin: 02/14/17 09:40 Dose: 600 mg Ciprofloxacin (Cipro 400mg/200ml Dsw) 200 mls @ 133.333 mls/hr IVPB Q8H [facility] Last Admin: 02/14/17 06:54 Dose: 133.333 mls/hr Cefepime HCl (Maxipime Iv 2 Gm Premix) 100 mls @ 100 mls/hr IVPB Q12 [facility] Stop: 02/18/17 22:01 Last Admin: 02/14/17 09:39 Dose: 100 mls/hr Vancomycin/Sodium Chloride (Vancocin) 200 mls @ 100 mls/hr IVPB DAILY [facility] Last Admin: 02/13/17 16:47 Dose: 100 mls/hr Ipratropium [place] (Atrovent) 0.5 mg IH RQ4 [facility] Last Admin: 02/14/17 07:15 Dose: 0.5 mg Lisinopril (Zestril) 2.5 mg PO DAILY [facility] Last Admin: 02/14/17 09:41 Dose: 2.5 mg Prednisone (Prednisone Tab) 20 mg PO DAILY [facility] Last Admin: 02/14/17 09:40 Dose: 20 mg Rosuvastatin Calcium (Crestor) 10 mg PO HS [facility] Last Admin: 02/13/17 22:15 Dose: 10 mg Spironolactone (Aldactone) 25 mg PO DAILY [facility] Last Admin: 02/14/17 09:39 Dose: 25 mg Tiotropium [place] (Spiriva) 18 mcg INH RQ24 [facility] Last Admin: 02/14/17 08:00 Dose: 18 mcg - Labs Labs: 02/13/17 14:55 02/13/17 14:55 PT 44.9 SECONDS (9.7-12.2) H* 02/13/17 14:35 INR 3.7 02/13/17 14:35 APTT 37 SECONDS (21-34) H 02/03/17 13:50 Attending/Attestation - Attestation I have personally seen and examined this patient.: Yes I have fully participated in the care of the patient.: Yes I have reviewed all pertinent clinical information, including history, physical exam and plan: Yes Notes (Text): Medical attending: Patient was seen and examined by me. Agree with the above note by the resident. This is a patient who has been at [facility] for quite some time now. A recent chest XRAY shows he does have suspicious new findings for pneumonia and he currently is started on three abx. Cultures taken, will repeat the CXRAY, he may benefit from some lasix as well in case the new CXRAY suggest fluid / congestion as he does have a history of CHF and a low EF as well as history of valvular disease
[2017-02-14] MEDS: Ipratropium 0.02% Inhal Soln (0.5 mg/2.5 ml) UD IH SCH ×5 (03:19→19:30)
[2017-02-14] MEDS: Albuterol 0.042% Inhal Sol (1.25 mg/3 mL) UD INH SCH ×5 (03:19→19:30)
[2017-02-14] MEDS: Acetylcysteine 20% Inhal Soln (4ml) INH SCH ×4 (03:19→19:30)
[2017-02-14] MEDS: Ciprofloxacin 400mg/200ml D5W 200 ML IVPB SCH ×3 (06:54→22:23)
[2017-02-14] MEDS: Tiotropium 18 mcg Cap For Inhalation INH SCH (08:00)
[2017-02-14] MEDS: Benzocaine/Menthol (Cepacol) Lozenge MT PRN (09:39)
[2017-02-14] MEDS: Cefepime IV 2 gm in Dextrose 100 ML IVPB SCH ×2 (09:39→22:00)
[2017-02-14] MEDS: guaiFENesin 600 mg ER Tab PO SCH ×2 (09:40→18:22)
[2017-02-14 11:24] LABS: BASO % 0.7 % (0.0-2.0); EOS % 0.6 % (0.0-4.0); HEMATOCRIT 40.5 % (35.0-51.0); LYMPH % 16.2 % (20.0-40.0); MEAN CELL VOLUME 81.4 fL (80.0-94.0); MEAN CORPUSCULAR HEMOGLOBIN 25.6 pg (27.0-31.0); MEAN CORPUSCULAR HGB CONC 31.5 g/dL (33.0-37.0); MEAN PLATELET VOLUME 7.2 fL (7.2-11.7); MONO # 0.7 K/uL (0.0-0.8); MONO % 11.4 % (0.0-10.0); WHITE BLOOD COUNT 6.3 K/uL (4.8-10.8)
--- NOTE | 2017-02-14 11:34 | RAD ---
HISTORY: shortness of breath COMPARISON: 02/11/2017 FINDINGS: LUNGS: Moderate venous congestion. Right hilar prominence. PLEURA: No significant pleural effusion identified, no pneumothorax apparent. CARDIOVASCULAR: Cardiomegaly. Left-sided pacemaker. Valve replacement. OSSEOUS STRUCTURES: No significant abnormalities. VISUALIZED UPPER ABDOMEN: Normal. OTHER FINDINGS: None. IMPRESSION: Moderate venous congestion. Right hilar prominence.
[2017-02-14] MEDS: Vancomycin 1 gm/NS 200 ml 200 ML IVPB SCH (11:42)
[2017-02-14] MEDS: Digoxin 250 mcg (0.25 mg) Tab PO SCH (18:23)
--- NOTE | 2017-02-14 20:18 | CP.PCM.PN ---
Subjective - Date & Time of Evaluation Date of Evaluation: 02/14/17 Time of Evaluation: 19:30 - Subjective Subjective: patient seen and examined. Complaining of cough and shortness of breath chest x-ray consistent with venous congestion Objective - Vital Signs/Intake and Output Vital Signs (last 24 hours): Temp Pulse Resp BP Pulse Ox 97.8 F 86 22 96/64 L 96 02/14/17 16:00 02/14/17 16:00 02/14/17 16:00 02/14/17 16:00 02/14/17 16:00 Intake and Output: 02/14/17 02/15/17 18:59 06:59 Intake Total 740 Output Total 2200 Balance -1460 - Medications Medications: Current Medications Acetylcysteine (Acetylcysteine 20%) 4 ml INH RQ6 [facility] Last Admin: 02/14/17 19:30 Dose: 4 ml Albuterol Sulfate (Albuterol 0.042% Inhal Laura (1.25mg/3ml) Ud) 1.25 mg INH RQ4 [facility] Last Admin: 02/14/17 19:30 Dose: 1.25 mg Benzocaine/Menthol (Cepacol Sore Throat) 1 sarah MT Q6H PRN PRN Reason: Sore Throat Last Admin: 02/14/17 09:39 Dose: 1 sarah Budesonide (Pulmicort Respules) 0.5 mg INH RQ12 [facility] Last Admin: 02/13/17 07:34 Dose: 0.5 mg Digoxin (Lanoxin) 0.25 mg PO DAILY@1800 [facility] Last Admin: 02/14/17 18:23 Dose: 0.25 mg Famotidine (Pepcid) 20 mg PO DAILY [facility] Last Admin: 02/14/17 09:40 Dose: 20 mg Guaifenesin (Mucinex La) 600 mg PO BID [facility] Last Admin: 02/14/17 18:22 Dose: 600 mg Ciprofloxacin (Cipro 400mg/200ml Dsw) 200 mls @ 133.333 mls/hr IVPB Q8H [facility] Last Admin: 02/14/17 14:10 Dose: 133.333 mls/hr Cefepime HCl (Maxipime Iv 2 Gm Premix) 100 mls @ 100 mls/hr IVPB Q12 [facility] Stop: 02/18/17 22:01 Last Admin: 02/14/17 09:39 Dose: 100 mls/hr Vancomycin/Sodium Chloride (Vancocin) 200 mls @ 100 mls/hr IVPB DAILY [facility] Last Admin: 02/14/17 11:42 Dose: 100 mls/hr Ipratropium [place] (Atrovent) 0.5 mg IH RQ4 [facility] Last Admin: 02/14/17 19:30 Dose: 0.5 mg Lisinopril (Zestril) 2.5 mg PO DAILY [facility] Last Admin: 02/14/17 09:41 Dose: 2.5 mg Prednisone (Prednisone Tab) 20 mg PO DAILY [facility] Last Admin: 02/14/17 09:40 Dose: 20 mg Rosuvastatin Calcium (Crestor) 10 mg PO HS [facility] Last Admin: 02/13/17 22:15 Dose: 10 mg Spironolactone (Aldactone) 25 mg PO DAILY [facility] Last Admin: 02/14/17 09:39 Dose: 25 mg Tiotropium [place] (Spiriva) 18 mcg INH RQ24 [facility] Last Admin: 02/14/17 08:00 Dose: 18 mcg - Labs Labs: 02/14/17 10:45 02/13/17 14:55 PT 44.9 SECONDS (9.7-12.2) H* 02/13/17 14:35 INR 3.7 02/13/17 14:35 APTT 37 SECONDS (21-34) H 02/03/17 13:50 - Head Exam Head Exam: ATRAUMATIC, NORMOCEPHALIC - Eye Exam Eye Exam: Normal appearance - ENT Exam ENT Exam: Mucous Membranes Moist - Neck Exam Neck Exam: Normal Inspection - Respiratory Exam Respiratory Exam: Rales, Rhonchi - Cardiovascular Exam Cardiovascular Exam: REGULAR RHYTHM - GI/Abdominal Exam GI & Abdominal Exam: Soft, Normal Bowel Sounds - Extremities Exam Extremities Exam: Normal Inspection Assessment and Plan (1) COPD (chronic obstructive pulmonary disease) Assessment & Plan: Antibiotics Continue bronchodilators and steroids Status: Acute (2) Acute exacerbation of CHF (congestive heart failure) Status: Acute (3) Chronic atrial fibrillation Status: Chronic
--- NOTE | 2017-02-15 01:22 | CP.PCM.PN ---
Subjective - Date & Time of Evaluation Date of Evaluation: 02/15/17 Time of Evaluation: 01:00 - Subjective Subjective: PGY-[address] Joe escamilla (hospitalist covering) Pt seen and examined at bedside. Pt states that the breathing treatments help minimally. He states he is getting them only once a day but he is actually getting them more often. He continues to have cough and sob with any ambulation. He also is refusing blood work. Denies any fevers, chills, chest pain, nausea or vomiting. Objective - Vital Signs/Intake and Output Vital Signs (last 24 hours): Temp Pulse Resp BP Pulse Ox 97.8 F 86 22 96/64 L 96 02/14/17 16:00 02/14/17 16:00 02/14/17 16:00 02/14/17 16:00 02/14/17 16:00 Intake and Output: 02/14/17 02/15/17 18:59 06:59 Intake Total 740 250 Output Total 2200 500 Balance -1460 -250 - Medications Medications: Current Medications Acetylcysteine (Acetylcysteine 20%) 4 ml INH RQ6 [facility] Last Admin: 02/14/17 19:30 Dose: 4 ml Albuterol Sulfate (Albuterol 0.042% Inhal Laura (1.25mg/3ml) Ud) 1.25 mg INH RQ4 [facility] Last Admin: 02/14/17 19:30 Dose: 1.25 mg Benzocaine/Menthol (Cepacol Sore Throat) 1 sarah MT Q6H PRN PRN Reason: Sore Throat Last Admin: 02/14/17 09:39 Dose: 1 sarah Budesonide (Pulmicort Respules) 0.5 mg INH RQ12 [facility] Last Admin: 02/13/17 07:34 Dose: 0.5 mg Digoxin (Lanoxin) 0.25 mg PO DAILY@1800 [facility] Last Admin: 02/14/17 18:23 Dose: 0.25 mg Famotidine (Pepcid) 20 mg PO DAILY [facility] Last Admin: 02/14/17 09:40 Dose: 20 mg Guaifenesin (Mucinex La) 600 mg PO BID [facility] Last Admin: 02/14/17 18:22 Dose: 600 mg Ciprofloxacin (Cipro 400mg/200ml Dsw) 200 mls @ 133.333 mls/hr IVPB Q8H [facility] Last Admin: 02/14/17 22:23 Dose: 133.333 mls/hr Cefepime HCl (Maxipime Iv 2 Gm Premix) 100 mls @ 100 mls/hr IVPB Q12 [facility] Stop: 02/18/17 22:01 Last Admin: 02/14/17 22:00 Dose: 100 mls/hr Vancomycin/Sodium Chloride (Vancocin) 200 mls @ 100 mls/hr IVPB DAILY [facility] Last Admin: 02/14/17 11:42 Dose: 100 mls/hr Ipratropium [place] (Atrovent) 0.5 mg IH RQ4 [facility] Last Admin: 02/14/17 19:30 Dose: 0.5 mg Lisinopril (Zestril) 2.5 mg PO DAILY [facility] Last Admin: 02/14/17 09:41 Dose: 2.5 mg Prednisone (Prednisone Tab) 20 mg PO DAILY [facility] Last Admin: 02/14/17 09:40 Dose: 20 mg Rosuvastatin Calcium (Crestor) 10 mg PO HS [facility] Last Admin: 02/14/17 22:23 Dose: 10 mg Spironolactone (Aldactone) 25 mg PO DAILY [facility] Last Admin: 02/14/17 09:39 Dose: 25 mg Tiotropium [place] (Spiriva) 18 mcg INH RQ24 [facility] Last Admin: 02/14/17 08:00 Dose: 18 mcg - Labs Labs: 02/14/17 10:45 02/13/17 14:55 PT 44.9 SECONDS (9.7-12.2) H* 02/13/17 14:35 INR 3.7 02/13/17 14:35 APTT 37 SECONDS (21-34) H 02/03/17 13:50 - Constitutional Appears: Non-toxic, No Acute Distress, Chronically Ill - Head Exam Head Exam: ATRAUMATIC, NORMAL INSPECTION - Eye Exam Eye Exam: EOMI, Normal appearance, PERRL Pupil Exam: NORMAL ACCOMODATION - ENT Exam ENT Exam: Mucous Membranes Moist - Respiratory Exam Respiratory Exam: Rales, Wheezes. absent: Accessory Muscle Use, Chest Wall Tenderness, Respiratory Distress, NORMAL BREATHING PATTERN - Cardiovascular Exam Cardiovascular Exam: REGULAR RHYTHM, +S1, +S2 - GI/Abdominal Exam GI & Abdominal Exam: Soft, Normal Bowel Sounds. absent: Distended, Firm, Guarding, Tenderness - Extremities Exam Extremities Exam: Normal Inspection, Pedal Edema. absent: Calf Tenderness - Back Exam Back Exam: NORMAL INSPECTION. absent: CVA tenderness (L), CVA tenderness (R), paraspinal tenderness - Neurological Exam Neurological Exam: Alert, Awake, Oriented x3 - Psychiatric Exam Psychiatric exam: Normal Affect, Normal Mood - Skin Skin Exam: Intact, Normal Color, Warm Assessment and Plan - Assessment and Plan (Free Text) Assessment: Assessment: - [facility] will accept pt, waiting on pt's to confirm address that pt will be discharged home to. - Pt not a safe discharge to home due to functional status Numbness and tingling - left sided - resolved - CT head - normal head CT Shortness of breath - secondary to chronic COPD vs pneumonia (hospital acquired) - Cefepime, Vanc and Cipro started (02/13) - Have not been able to get vanc trough because patient refusing blood work - ID consulted (Fidel) help appreciated - f/u recs - Blood and sputum Cxs (02/13) f/u - CXR 02/11 - New opacity at right lung base suspicious for pneumonia. Questionable opacity at left base. Mild congestive change. - CT Chest HR 02/05 - No definite CT evidence of interstitial lung disease. Cardiomegaly and [id number] pulmonary vascular congestion. Interval appearance of new round opacities/ nodules in the right upper lobe and left lower lobe since the previous study. The differential diagnosis includes multifocal pneumonia. The possibility of neoplasm is not totally excluded. Follow-up reassessment is recommended. Otherwise no significant interval change since the previous study dated 01/22/2017. COPD (chronic obstructive pulmonary disease) 02/13: Duonebs every 4 hours for SOB 02/11: Added mucomyst to breathing treatments. Will get repeat CXR 02/05: CT chest with high resolution - see above 02/01: Prednisone 40mg PO daily; Taper on discharge. Will require home oxygen. 01/29: Stop Solumedrol IVP; Start Prednisone 40mg PO daily; Taper on discharge. Will require home oxygen. -01/28: Solumedrol reduced to 40mg IVP Q12H. Prior to discharge, change Solumedrol -> Prednisone -01/19-01/28: Continue BIPAP, patient more compliant (sometimes refuses despite being SOB). -01/16: RAPID called due to SOB. BP 80/50's. Bolused 500cc NS. Ordered BIPAP and ABG, however patient refused. Placed back on NC 3L. -01/14-01/15: Patient complaining of SOB with exertion and orthopnea. Maintain Head of bed elevated 30 degrees. -01/13: PT session: 98% O2 at 2L at rest, 96% room air at rest sitting, 82% room air during ambulation, 88% at 2 liter ambulation. -01/12: Walked 20 steps today down [address]uno, and patient became dizzy, SOB, and almost collapsed. - Consulted Pulmonology, Dr. Cobb, f/u recs -planning for home O2 - Aware of HR in 140's and SOB after eating and low levels of exertion. -LDH 654H -HIV - negative -persistent shortness of breath - Patient with long history of smoking most likely has underlying COPD. Nebulizer treatment. Inhaled steroids. Spiriva. PFT as out pt Systolic dysfunction with acute on chronic heart failure - 02/11: dig level low, increase to 0.25 - EF 10-15%, mechanical MV- no regurg, tricuspid regurg. see full report -Chest CT 01/22 - Cardiomegaly. Cardiac valve prosthesis. Left-sided AICD. Dense coronary artery calcifications. -Small consolidation (favored to reflect atelectasis rather than pneumonia) at the left lung base. -Bibasilar atelectasis. Small airways disease. Mild ground-glass and fine nodular opacities within the right upper lobe, possibly infectious or inflammatory. -7 mm left upper lobe pulmonary nodule. Guidelines by the Fleischner society (radiology 2005; 237:390 5-400) suggests that in patients with low risk for lung cancer, with nodules less than or equal to 8 mm in diameter should have follow-up in approximately 6-12 months. In patients with high-risk, including smokers, follow-up is recommended 3-6 months. Patient with a known malignancy for risk for metastases should receive 3 month follow-up. -Hepatic capsular calcification. -Numerous low-density lesions throughout the liver, possibly cysts. Decompressed gallbladder limits evaluation. Bilateral hypodense renal lesions. Right adrenal gland hypertrophy. 12 mm left adrenal gland nodule measures approximately 9 Hounsfield units, likely adenoma. -Consulted Cardiology, Dr. Arguelles - f/u recs -01/22: Lasix 40mg IVP daily, Spironolactone 25mg daily. CXR - no interval pathology change. -01/19: HOLD LASIX FOR 1 TO 2 DAYS AND CONT MUCINEX. PT PRERENAL AND APPEARS DRY. ON BOTH LASIX AND SPIRONOLACTONE. -SOB APPEARS TO BE SECONDARY TO PULM ETIOLOGY. IMPROVES WITH NEBS. PT WITH RHONCHI B/L. MAY BENEFIT FROM PULM TOILET. -will attempt to obtain company of [facility] for interrogation. -likely deconditioned. will benefit from rehab -01/16: RAPID called due to SOB. BP 80/50's. Bolused 500cc NS. Ordered BIPAP and ABG, however patient refused. Placed back on NC 3L. ProBNP 4070H (less than # on admission) and KACY negative. -01/16: Decrease to Lasix 40mg PO daily (was BID). Admit to telemetry, BNP 4560 on admission Lisinopril 10mg daily Aldactone 25mg PO Daily patient with AICD, will check echo to determine EF CXR 01/03: mild cardiomegaly, mild pulmonary venous congestion. s/p sternotomy, aortic valve replacement, AICD H/O mitral valve replacement with mechanical valve Monitor INR and adjust Coumadin as necessary Cardiac valve replacement 6-7yrs ago Consulted Cardiology, Dr. Arguelles - f/u recs -echocardiogram reviewed. valve leaflets are opening and functional. There is no signficant gradient across the valve. -recommend INR 2.5 to 3.5. STOP Lovenox 3/5 STOP Heparin Drip - cardiac protocol, with bolus (because patient is refusing blood draws) Chronic atrial fibrillation Consulted Cardiology, Dr. Arguelles - f/u recs -Rate controlled -echocardiogram reviewed. valve leaflets are opening and functional. There is no significant gradient across the valve. -recommend INR 2.5 to 3.5. -See PT/INR trends above Coumadin as above - Patient's INR is difficult to maintain with the therapeutic range therefore we will give another 3 mg tonight and check INR tomorrow. Will try to convince the patient to get bloodwork done today. STOP Lovenox 3/5 Cough, acute - will add mucocyst -Mucinex 600mg PO BID -01/28: cough intermittent -01/24 does not complain of cough -01/19-01/22: Persists. Non-productive. Continue Mucinex. -01/15: patient developed productive cough with yellow sputum today. CAD (coronary artery disease) Consulted Cardiology, Dr. Arguelles - f/u recs -Aware of HR in 140's and SOB after eating and low levels of exertion. -unknown graft status. no evidence of ischemia at present -No current angina History of MD (myocardial infarction) Crestor 10mg PO HS resumed HOLD Crestor 10mg PO HS (last dose 01/18- due to elevated LFTs) ROMIs negative x3 EKG paced Denies chest pain Transaminitis, acute Crestor resumed 01/31: AST/ALT normalized; consider resuming crestor. 01/30 patient refusing labs. will re-attempt 01/28-01/29: Improving. hold crestor (since 01/18) 01/27: AST 37 / ALT 124 - continue to hold crestor. 01/25-01/26: Patient refused blood work 01/24: 51/164 AST / ALT down trending 01/22-01/23: AST / ALT down trending - continue to hold Crestor 01/21: AST 57 / ALT 188, decreasing. HOLD Crestor 10mg PO HS (last dose 01/18- due to elevated LFTs) 01/20: AST 75 / ALT 205 01/19: AST 70 / ALT 201 - increasing -> hold crestor for 2 nights 01/19, 01/20 01/16: AST 90 / ALT 164 - increasing -> hold Crestor tonight. - AST 77 / ALT 98 -> previously normal. - Continue to monitor Electrolyte Imbalance 01/30 patient refusing labs, will re-attempt 01/21-01/29: Hyponatremia, stable Hyperkalemia - resolved Hypokalemia, Tachycardia HR grossly WNL, continue to monitor 01/20-01/23: HR WNL 01/13: Patient becomes SOB very easily, desaturating to 82% while ambulating. Anytime he eats or gets up, HR climbs into 140's EKG in ER: sinus tachycardia at 100, paced, incomplete RBBB Discontinued cardizem drip of 5mg/h started in the ER Lower extremity edema LE Duplex - negative. see full report. Prophylactic measure Coumadin as above. protonix 40mg daily SCD contraindicated due to LE edema D/C when bed available
[2017-02-15] MEDS: Ipratropium 0.02% Inhal Soln (0.5 mg/2.5 ml) UD IH SCH ×7 (01:33→19:54)
[2017-02-15] MEDS: Albuterol 0.042% Inhal Sol (1.25 mg/3 mL) UD INH SCH ×7 (01:33→19:53)
[2017-02-15] MEDS: Acetylcysteine 20% Inhal Soln (4ml) INH SCH ×4 (01:33→19:51)
[2017-02-15] MEDS: Ciprofloxacin 400mg/200ml D5W 200 ML IVPB SCH ×3 (06:54→22:15)
[2017-02-15] MEDS: Tiotropium 18 mcg Cap For Inhalation INH SCH (08:18)
[2017-02-15] MEDS: guaiFENesin 600 mg ER Tab PO SCH ×2 (09:31→17:50)
[2017-02-15] MEDS: Benzocaine/Menthol (Cepacol) Lozenge MT PRN (09:32)
[2017-02-15] MEDS: Cefepime IV 2 gm in Dextrose 100 ML IVPB SCH ×2 (09:34→22:13)
[2017-02-15] MEDS: Vancomycin 1 gm/NS 200 ml 200 ML IVPB SCH (10:56)
[2017-02-15] MEDS: Digoxin 250 mcg (0.25 mg) Tab PO SCH (17:50)
[2017-02-16] MEDS: Ipratropium 0.02% Inhal Soln (0.5 mg/2.5 ml) UD IH SCH ×6 (01:47→20:43)
[2017-02-16] MEDS: Acetylcysteine 20% Inhal Soln (4ml) INH SCH ×3 (01:47→20:42)
[2017-02-16] MEDS: Albuterol 0.042% Inhal Sol (1.25 mg/3 mL) UD INH SCH ×6 (01:47→20:43)
[2017-02-16] MEDS: Ciprofloxacin 400mg/200ml D5W 200 ML IVPB SCH (06:12)
[2017-02-16] MEDS: Vancomycin 1 gm/NS 200 ml 200 ML IVPB SCH (08:23)
[2017-02-16] MEDS: Cefepime IV 2 gm in Dextrose 100 ML IVPB SCH ×3 (08:23→21:39)
[2017-02-16] MEDS: Tiotropium 18 mcg Cap For Inhalation INH SCH (08:42)
[2017-02-16] MEDS: guaiFENesin 600 mg ER Tab PO SCH ×2 (10:46→18:19)
[2017-02-16 13:27] LABS: BASO % 0.6 % (0.0-2.0); EOS % 0.6 % (0.0-4.0); HEMATOCRIT 40.2 % (35.0-51.0); LYMPH % 16.6 % (20.0-40.0); MEAN CELL VOLUME 81.3 fL (80.0-94.0); MEAN CORPUSCULAR HEMOGLOBIN 25.7 pg (27.0-31.0); MEAN CORPUSCULAR HGB CONC 31.6 g/dL (33.0-37.0); MEAN PLATELET VOLUME 7.6 fL (7.2-11.7); MONO # 0.7 K/uL (0.0-0.8); MONO % 11.2 % (0.0-10.0); RED CELL DISTRIBUTION WIDTH 17.9 % (11.5-14.5); WHITE BLOOD COUNT 6.3 K/uL (4.8-10.8)
[2017-02-16 13:42] LABS: CHLORIDE 98 mmol/L (98-107)
[2017-02-16 13:43] LABS: POTASSIUM 4.5 mmol/L (3.6-5.2); SODIUM 133 mmol/L (132-148)
[2017-02-16 13:45] LABS: ALKALINE PHOSPHATASE 62 U/L (38-126); ALT/SGPT 128 U/L (21-72); AST/SGOT 65 U/L (17-59); BILIRUBIN,TOTAL 0.4 mg/dL (0.2-1.3); BLOOD UREA NITROGEN 25 mg/dL (9-20); CARBON DIOXIDE 27 mmol/L (22-30); GFR AFRICAN-AMERICAN > 60; TOTAL PROTEIN 6.3 g/dL (6.3-8.3)
[2017-02-16 13:46] LABS: CALCIUM 9.2 mg/dl (8.6-10.4); GLUCOSE,RANDOM 92 mg/dL (75-110)
--- NOTE | 2017-02-16 17:08 | CP.PCM.PN ---
<James Lee - Last Filed: 02/16/17 17:05> Subjective - Date & Time of Evaluation Date of Evaluation: 02/16/17 Time of Evaluation: 10:14 - Subjective Subjective: Pt seen and examined. Pt reports that he has difficulty breathing and is coughing. He reports pain in his chest when he coughs. Pt denies fever, chills, resting chest pain, nausea, vomiting, diarrhea. Objective - Vital Signs/Intake and Output Vital Signs (last 24 hours): Temp Pulse Resp BP Pulse Ox 98.7 F 80 18 98/68 L 99 02/16/17 07:35 02/16/17 07:35 02/16/17 07:35 02/16/17 07:35 02/16/17 07:35 Intake and Output: 02/16/17 02/16/17 06:59 18:59 Intake Total 690 350 Output Total 1800 Balance -1110 350 - Medications Medications: Current Medications Acetylcysteine (Acetylcysteine 20%) 4 ml INH RQ6 [facility] Last Admin: 02/16/17 08:40 Dose: 4 ml Albuterol Sulfate (Albuterol 0.042% Inhal Laura (1.25mg/3ml) Ud) 1.25 mg INH RQ4 [facility] Last Admin: 02/16/17 16:02 Dose: 1.25 mg Benzocaine/Menthol (Cepacol Sore Throat) 1 sarah MT Q6H PRN PRN Reason: Sore Throat Last Admin: 02/15/17 09:32 Dose: 1 sarah Budesonide (Pulmicort Respules) 0.5 mg INH RQ12 [facility] Last Admin: 02/13/17 07:34 Dose: 0.5 mg Digoxin (Lanoxin) 0.25 mg PO DAILY@1800 [facility] Last Admin: 02/15/17 17:50 Dose: 0.25 mg Famotidine (Pepcid) 20 mg PO DAILY [facility] Last Admin: 02/16/17 10:46 Dose: 20 mg Guaifenesin (Mucinex La) 600 mg PO BID [facility] Last Admin: 02/16/17 10:46 Dose: 600 mg Cefepime HCl (Maxipime Iv 2 Gm Premix) 100 mls @ 100 mls/hr IVPB Q12 [facility] Stop: 02/18/17 22:01 Last Admin: 02/15/17 22:13 Dose: 100 mls/hr Vancomycin/Sodium Chloride (Vancocin) 200 mls @ 100 mls/hr IVPB DAILY [facility] Last Admin: 02/15/17 10:56 Dose: 100 mls/hr Ipratropium [place] (Atrovent) 0.5 mg IH RQ4 [facility] Last Admin: 02/16/17 16:02 Dose: 0.5 mg Lisinopril (Zestril) 2.5 mg PO DAILY [facility] Last Admin: 02/16/17 10:46 Dose: 2.5 mg Prednisone (Prednisone Tab) 20 mg PO DAILY [facility] Last Admin: 02/16/17 10:46 Dose: 20 mg Rosuvastatin Calcium (Crestor) 10 mg PO HS [facility] Last Admin: 02/15/17 22:13 Dose: 10 mg Spironolactone (Aldactone) 25 mg PO DAILY [facility] Last Admin: 02/16/17 10:46 Dose: 25 mg Tiotropium [place] (Spiriva) 18 mcg INH RQ24 [facility] Last Admin: 02/16/17 08:42 Dose: Not Given - Labs Labs: 02/16/17 13:23 02/16/17 13:23 PT 36.3 SECONDS (9.7-12.2) H* D 02/16/17 13:23 INR 3.0 02/16/17 13:23 APTT 41 SECONDS (21-34) H 02/16/17 13:23 - Constitutional Appears: No Acute Distress, Chronically Ill - Head Exam Head Exam: ATRAUMATIC, NORMOCEPHALIC - Eye Exam Eye Exam: EOMI, PERRL - ENT Exam ENT Exam: Mucous Membranes Moist. absent: Mucous Membranes Dry - Neck Exam Neck Exam: Full ROM. absent: Lymphadenopathy - Respiratory Exam Respiratory Exam: Rhonchi - Cardiovascular Exam Cardiovascular Exam: Gallop, +S1, +S2 - GI/Abdominal Exam GI & Abdominal Exam: Soft. absent: Tenderness - Extremities Exam Extremities Exam: Full ROM. absent: Pedal Edema - Neurological Exam Neurological Exam: Alert, Awake, Oriented x3 - Psychiatric Exam Psychiatric exam: Normal Affect, Normal Mood - Skin Skin Exam: Normal Color, Warm Assessment and Plan - Assessment and Plan (Free Text) Assessment: -Pt pending discharge to [facility] once confirms pt's address and permanent residence. Pt not clear for discharge until is contacted. [facility] has been unable to contact thus far. Pt is medically stable for discharge to [facility]. Numbness and tingling - left sided - resolved - CT head - normal head CT Shortness of breath - secondary to chronic COPD vs pneumonia (hospital acquired) - Cefepime, Vanc and Cipro started (02/13) - Have not been able to get vanc trough because patient refusing blood work - ID consulted (Fidel) help appreciated - f/u recs - Blood and sputum Cxs (02/13) f/u - CXR 02/11 - New opacity at right lung base suspicious for pneumonia. Questionable opacity at left base. Mild congestive change. - CT Chest HR 02/05 - No definite CT evidence of interstitial lung disease. Cardiomegaly and [id number] pulmonary vascular congestion. Interval appearance of new round opacities/ nodules in the right upper lobe and left lower lobe since the previous study. The differential diagnosis includes multifocal pneumonia. The possibility of neoplasm is not totally excluded. Follow-up reassessment is recommended. Otherwise no significant interval change since the previous study dated 01/22/2017. COPD (chronic obstructive pulmonary disease) 02/13: Duonebs every 4 hours for SOB 02/11: Added mucomyst to breathing treatments. Will get repeat CXR 02/05: CT chest with high resolution - see above 02/01: Prednisone 40mg PO daily; Taper on discharge. Will require home oxygen. 01/29: Stop Solumedrol IVP; Start Prednisone 40mg PO daily; Taper on discharge. Will require home oxygen. -01/28: Solumedrol reduced to 40mg IVP Q12H. Prior to discharge, change Solumedrol -> Prednisone -01/19-01/28: Continue BIPAP, patient more compliant (sometimes refuses despite being SOB). -01/16: RAPID called due to SOB. BP 80/50's. Bolused 500cc NS. Ordered BIPAP and ABG, however patient refused. Placed back on NC 3L. -01/14-01/15: Patient complaining of SOB with exertion and orthopnea. Maintain Head of bed elevated 30 degrees. -01/13: PT session: 98% O2 at 2L at rest, 96% room air at rest sitting, 82% room air during ambulation, 88% at 2 liter ambulation. -01/12: Walked 20 steps today down bruno, and patient became dizzy, SOB, and almost collapsed. - Consulted Pulmonology, Dr. Cobb, f/u recs -planning for home O2 - Aware of HR in 140's and SOB after eating and low levels of exertion. -LDH 654H -HIV - negative -persistent shortness of breath - Patient with long history of smoking most likely has underlying COPD. Nebulizer treatment. Inhaled steroids. Spiriva. PFT as out pt Systolic dysfunction with acute on chronic heart failure - 02/11: dig level low, increase to 0.25 - EF 10-15%, mechanical MV- no regurg, tricuspid regurg. see full report -Chest CT 01/22 - Cardiomegaly. Cardiac valve prosthesis. Left-sided AICD. Dense coronary artery calcifications. -Small consolidation (favored to reflect atelectasis rather than pneumonia) at the left lung base. -Bibasilar atelectasis. Small airways disease. Mild ground-glass and fine nodular opacities within the right upper lobe, possibly infectious or inflammatory. -7 mm left upper lobe pulmonary nodule. Guidelines by the Fleischner society (radiology 2005; 237:390 5-400) suggests that in patients with low risk for lung cancer, with nodules less than or equal to 8 mm in diameter should have follow-up in approximately 6-12 months. In patients with high-risk, including smokers, follow-up is recommended 3-6 months. Patient with a known malignancy for risk for metastases should receive 3 month follow-up. -Hepatic capsular calcification. -Numerous low-density lesions throughout the liver, possibly cysts. Decompressed gallbladder limits evaluation. Bilateral hypodense renal lesions. Right adrenal gland hypertrophy. 12 mm left adrenal gland nodule measures approximately 9 Hounsfield units, likely adenoma. -Consulted Cardiology, Dr. Arguelles - f/u recs -01/22: Lasix 40mg IVP daily, Spironolactone 25mg daily. CXR - no interval pathology change. -01/19: HOLD LASIX FOR 1 TO 2 DAYS AND CONT MUCINEX. PT PRERENAL AND APPEARS DRY. ON BOTH LASIX AND SPIRONOLACTONE. -SOB APPEARS TO BE SECONDARY TO PULM ETIOLOGY. IMPROVES WITH NEBS. PT WITH RHONCHI B/L. MAY BENEFIT FROM PULM TOILET. -will attempt to obtain company of AICD for interrogation. -likely deconditioned. will benefit from rehab -01/16: RAPID called due to SOB. BP 80/50's. Bolused 500cc NS. Ordered BIPAP and ABG, however patient refused. Placed back on NC 3L. ProBNP 4070H (less than # on admission) and KACY negative. -01/16: Decrease to Lasix 40mg PO daily (was BID). Admit to telemetry, BNP 4560 on admission Lisinopril 10mg daily Aldactone 25mg PO Daily patient with AICD, will check echo to determine EF CXR 01/03: mild cardiomegaly, mild pulmonary venous congestion. s/p sternotomy, aortic valve replacement, AICD H/O mitral valve replacement with mechanical valve Monitor INR and adjust Coumadin as necessary Cardiac valve replacement 6-7yrs ago Consulted Cardiology, Dr. Arguelles - f/u recs -echocardiogram reviewed. valve leaflets are opening and functional. There is no signficant gradient across the valve. -recommend INR 2.5 to 3.5. STOP Lovenox 3/5 STOP Heparin Drip - cardiac protocol, with bolus (because patient is refusing blood draws) Chronic atrial fibrillation Consulted Cardiology, Dr. Arguelles - f/u recs -Rate controlled -echocardiogram reviewed. valve leaflets are opening and functional. There is no significant gradient across the valve. -recommend INR 2.5 to 3.5. -See PT/INR trends above Coumadin as above - Patient's INR is difficult to maintain with the therapeutic range therefore we will give another 3 mg tonight and check INR tomorrow. Will try to convince the patient to get bloodwork done today. STOP Lovenox 3/5 Cough, acute - will add mucocyst -Mucinex 600mg PO BID -01/28: cough intermittent -01/24 does not complain of cough -01/19-01/22: Persists. Non-productive. Continue Mucinex. -01/15: patient developed productive cough with yellow sputum today. CAD (coronary artery disease) Consulted Cardiology, Dr. Arguelles - f/u recs -Aware of HR in 140's and SOB after eating and low levels of exertion. -unknown graft status. no evidence of ischemia at present -No current angina History of [place] (myocardial infarction) Crestor 10mg PO HS resumed HOLD Crestor 10mg PO HS (last dose 01/18- due to elevated LFTs) ROMIs negative x3 EKG paced Denies chest pain Transaminitis, acute Crestor resumed 01/31: AST/ALT normalized; consider resuming crestor. 01/30 patient refusing labs. will re-attempt 01/28-01/29: Improving. hold crestor (since 01/18) 01/27: AST 37 / ALT 124 - continue to hold crestor. 01/25-01/26: Patient refused blood work 01/24: 51/164 AST / ALT down trending 01/22-01/23: AST / ALT down trending - continue to hold Crestor 01/21: AST 57 / ALT 188, decreasing. HOLD Crestor 10mg PO HS (last dose 01/18- due to elevated LFTs) 01/20: AST 75 / ALT 205 01/19: AST 70 / ALT 201 - increasing -> hold crestor for 2 nights 01/19, 01/20 01/16: AST 90 / ALT 164 - increasing -> hold Crestor tonight. - AST 77 / ALT 98 -> previously normal. - Continue to monitor Electrolyte Imbalance 01/30 patient refusing labs, will re-attempt 01/21-01/29: Hyponatremia, stable Hyperkalemia - resolved Hypokalemia, Tachycardia HR grossly WNL, continue to monitor 01/20-01/23: HR WNL 01/13: Patient becomes SOB very easily, desaturating to 82% while ambulating. Anytime he eats or gets up, HR climbs into 140's EKG in ER: sinus tachycardia at 100, paced, incomplete RBBB Discontinued cardizem drip of 5mg/h started in the ER Lower extremity edema LE Duplex - negative. see full report. Prophylactic measure Coumadin as above. protonix 40mg daily SCD contraindicated due to LE edema D/C when bed available <Johnnie Otoole Jr. - Last Filed: 02/20/17 16:43> Objective - Vital Signs/Intake and Output Vital Signs (last 24 hours): Temp Pulse Resp BP Pulse Ox 97.5 F L 74 20 99/61 L 99 02/20/17 15:41 02/20/17 15:41 02/20/17 15:41 02/20/17 15:41 02/20/17 15:41 Intake and Output: 02/20/17 02/20/17 06:59 18:59 Intake Total 760 Output Total 1100 Balance -340 - Medications Medications: Current Medications Acetylcysteine (Acetylcysteine 20%) 4 ml INH RQ4 [facility] Last Admin: 02/20/17 16:17 Dose: 4 ml Albuterol Sulfate (Albuterol 0.042% Inhal Laura (1.25mg/3ml) Ud) 1.25 mg INH RQ4 [facility] Last Admin: 02/20/17 16:17 Dose: 1.25 mg Benzocaine/Menthol (Cepacol Sore Throat) 1 sarah MT Q6H PRN PRN Reason: Sore Throat Last Admin: 02/15/17 09:32 Dose: 1 sarah Budesonide (Pulmicort Respules) 0.5 mg INH RQ12 [facility] Last Admin: 02/13/17 07:34 Dose: 0.5 mg Cefpodoxime Proxetil (Vantin) 200 mg PO Q12H [facility] Last Admin: 02/20/17 14:44 Dose: 200 mg Digoxin (Lanoxin) 0.25 mg PO DAILY@1800 [facility] Last Admin: 02/19/17 17:32 Dose: 0.25 mg Famotidine (Pepcid) 20 mg PO DAILY [facility] Last Admin: 02/20/17 11:19 Dose: 20 mg Guaifenesin (Mucinex La) 600 mg PO BID [facility] Last Admin: 02/20/17 11:19 Dose: 600 mg Ipratropium [place] (Atrovent) 0.5 mg IH RQ4 [facility] Last Admin: 02/20/17 16:17 Dose: 0.5 mg Lisinopril (Zestril) 2.5 mg PO DAILY [facility] Last Admin: 02/20/17 11:19 Dose: 2.5 mg Prednisone (Prednisone Tab) 20 mg PO DAILY [facility] Last Admin: 02/20/17 11:19 Dose: 20 mg Spironolactone (Aldactone) 25 mg PO DAILY [facility] Last Admin: 02/20/17 11:19 Dose: 25 mg - Labs Labs: 02/20/17 11:24 02/20/17 11:24 PT 19.9 SECONDS (9.7-12.2) H 02/20/17 11:24 INR 1.7 02/20/17 11:24 APTT 41 SECONDS (21-34) H 02/16/17 13:23 Attending/Attestation - Attestation I have personally seen and examined this patient.: Yes I have fully participated in the care of the patient.: Yes I have reviewed all pertinent clinical information, including history, physical exam and plan: Yes Notes (Text): 02/20/17 16:42 Patient seen and examined. Agree with resident notes and finding
[2017-02-16] MEDS: Digoxin 250 mcg (0.25 mg) Tab PO SCH (18:19)
[2017-02-17] MEDS: Ipratropium 0.02% Inhal Soln (0.5 mg/2.5 ml) UD IH SCH ×6 (00:34→19:25)
[2017-02-17] MEDS: Albuterol 0.042% Inhal Sol (1.25 mg/3 mL) UD INH SCH ×6 (00:34→19:24)
[2017-02-17] MEDS: Acetylcysteine 20% Inhal Soln (4ml) INH SCH ×5 (01:11→19:23)
[2017-02-17] MEDS: Tiotropium 18 mcg Cap For Inhalation INH SCH (07:34)
[2017-02-17] MEDS: Cefepime IV 2 gm in Dextrose 100 ML IVPB SCH ×2 (10:05→21:02)
[2017-02-17] MEDS: guaiFENesin 600 mg ER Tab PO SCH ×2 (11:05→17:15)
[2017-02-17] MEDS: Vancomycin 1 gm/NS 200 ml 200 ML IVPB SCH (11:05)
--- NOTE | 2017-02-17 14:53 | CP.PCM.PN ---
Subjective - Date & Time of Evaluation Date of Evaluation: 02/17/17 Time of Evaluation: 09:30 - Subjective Subjective: Pt seen and examined at bedside in need of O2 support; breathed comfortably for exam when O2 NC 3.5L was re-applied. Pt complained of SOB and cough. Pt denied CP, abdominal pain, sputum or productive cough PMH: CAD, CT, arrythmias PSH: CABAG Social:Smoking 2-3 cigarets/day 60 years Objective - Vital Signs/Intake and Output Vital Signs (last 24 hours): Temp Pulse Resp BP Pulse Ox 97.9 F 70 100 H 100/63 100 02/17/17 07:35 02/17/17 07:55 02/17/17 07:35 02/17/17 07:35 02/17/17 07:35 Intake and Output: 02/17/17 02/17/17 06:59 18:59 Intake Total 740 Output Total 2200 Balance -1460 - Medications Medications: Current Medications Acetylcysteine (Acetylcysteine 20%) 4 ml INH RQ6 [facility] Last Admin: 02/17/17 13:45 Dose: Not Given Albuterol Sulfate (Albuterol 0.042% Inhal Laura (1.25mg/3ml) Ud) 1.25 mg INH RQ4 [facility] Last Admin: 02/17/17 11:29 Dose: 1.25 mg Benzocaine/Menthol (Cepacol Sore Throat) 1 sarah MT Q6H PRN PRN Reason: Sore Throat Last Admin: 02/15/17 09:32 Dose: 1 sarah Budesonide (Pulmicort Respules) 0.5 mg INH RQ12 [facility] Last Admin: 02/13/17 07:34 Dose: 0.5 mg Digoxin (Lanoxin) 0.25 mg PO DAILY@1800 [facility] Last Admin: 02/16/17 18:19 Dose: 0.25 mg Famotidine (Pepcid) 20 mg PO DAILY [facility] Last Admin: 02/17/17 11:05 Dose: 20 mg Guaifenesin (Mucinex La) 600 mg PO BID [facility] Last Admin: 02/17/17 11:05 Dose: 600 mg Cefepime HCl (Maxipime Iv 2 Gm Premix) 100 mls @ 100 mls/hr IVPB Q12 [facility] Stop: 02/18/17 22:01 Last Admin: 02/17/17 10:05 Dose: Not Given Vancomycin/Sodium Chloride (Vancocin) 200 mls @ 100 mls/hr IVPB DAILY [facility] Last Admin: 02/17/17 11:05 Dose: Not Given Ipratropium [place] (Atrovent) 0.5 mg IH RQ4 [facility] Last Admin: 02/17/17 11:29 Dose: 0.5 mg Lisinopril (Zestril) 2.5 mg PO DAILY [facility] Last Admin: 02/17/17 11:05 Dose: 2.5 mg Prednisone (Prednisone Tab) 20 mg PO DAILY [facility] Last Admin: 02/17/17 11:05 Dose: 20 mg Rosuvastatin Calcium (Crestor) 10 mg PO HS [facility] Last Admin: 02/16/17 21:38 Dose: 10 mg Spironolactone (Aldactone) 25 mg PO DAILY [facility] Last Admin: 02/17/17 11:06 Dose: 25 mg Tiotropium [place] (Spiriva) 18 mcg INH RQ24 [facility] Last Admin: 02/17/17 07:34 Dose: Not Given - Labs Labs: 02/16/17 13:23 02/16/17 13:23 PT 36.3 SECONDS (9.7-12.2) H* D 02/16/17 13:23 INR 3.0 02/16/17 13:23 APTT 41 SECONDS (21-34) H 02/16/17 13:23 - Constitutional Appears: Well, No Acute Distress - Head Exam Head Exam: ATRAUMATIC, NORMOCEPHALIC - Respiratory Exam Respiratory Exam: Rhonchi (ALYSSA and RLL ant. and RLL and L lobes), NORMAL BREATHING PATTERN. absent: Clear to Ausculation Bilateral - Cardiovascular Exam Cardiovascular Exam: Irregular Rhythm, +S1, +S2. absent: REGULAR RHYTHM, JVD, Murmur - Neurological Exam Neurological Exam: Alert, Awake, Oriented x3 - Psychiatric Exam Psychiatric exam: Normal Affect, Normal Mood - Skin Skin Exam: Dry, Intact, Normal Color, Warm Assessment and Plan (1) COPD (chronic obstructive pulmonary disease) Assessment & Plan: CXR 02/14/17 moderate venous congestion; R hilar prominence Antibiotics Continue bronchodilators and steroids Continue current management and follow up if needed Status: Acute (2) Acute exacerbation of CHF (congestive heart failure) Status: Acute (3) Chronic atrial fibrillation Status: Chronic
--- NOTE | 2017-02-17 16:43 | CP.PCM.PN ---
<James Lee - Last Filed: 02/17/17 16:40> Subjective - Date & Time of Evaluation Date of Evaluation: 02/17/17 Time of Evaluation: 09:07 - Subjective Subjective: Pt seen and examined. Pt reports that he is short of breath and coughing. Pt denies fever, chills, chest pain, nausea, vomiting. Objective - Vital Signs/Intake and Output Vital Signs (last 24 hours): Temp Pulse Resp BP Pulse Ox 97.4 F L 82 20 95/64 L 99 02/17/17 16:25 02/17/17 16:25 02/17/17 16:25 02/17/17 16:25 02/17/17 16:25 Intake and Output: 02/17/17 02/17/17 06:59 18:59 Intake Total 740 Output Total 2200 Balance -1460 - Medications Medications: Current Medications Acetylcysteine (Acetylcysteine 20%) 4 ml INH RQ6 [facility] Last Admin: 02/17/17 13:45 Dose: Not Given Albuterol Sulfate (Albuterol 0.042% Inhal Laura (1.25mg/3ml) Ud) 1.25 mg INH RQ4 [facility] Last Admin: 02/17/17 15:56 Dose: 1.25 mg Benzocaine/Menthol (Cepacol Sore Throat) 1 sarah MT Q6H PRN PRN Reason: Sore Throat Last Admin: 02/15/17 09:32 Dose: 1 sarah Budesonide (Pulmicort Respules) 0.5 mg INH RQ12 [facility] Last Admin: 02/13/17 07:34 Dose: 0.5 mg Digoxin (Lanoxin) 0.25 mg PO DAILY@1800 [facility] Last Admin: 02/16/17 18:19 Dose: 0.25 mg Famotidine (Pepcid) 20 mg PO DAILY [facility] Last Admin: 02/17/17 11:05 Dose: 20 mg Guaifenesin (Mucinex La) 600 mg PO BID [facility] Last Admin: 02/17/17 11:05 Dose: 600 mg Cefepime HCl (Maxipime Iv 2 Gm Premix) 100 mls @ 100 mls/hr IVPB Q12 JC Stop: 02/18/17 22:01 Last Admin: 02/17/17 10:05 Dose: Not Given Vancomycin/Sodium Chloride (Vancocin) 200 mls @ 100 mls/hr IVPB DAILY [facility] Last Admin: 02/17/17 11:05 Dose: Not Given Ipratropium [place] (Atrovent) 0.5 mg IH RQ4 [facility] Last Admin: 02/17/17 15:56 Dose: 0.5 mg Lisinopril (Zestril) 2.5 mg PO DAILY [facility] Last Admin: 02/17/17 11:05 Dose: 2.5 mg Prednisone (Prednisone Tab) 20 mg PO DAILY [facility] Last Admin: 02/17/17 11:05 Dose: 20 mg Rosuvastatin Calcium (Crestor) 10 mg PO HS [facility] Last Admin: 02/16/17 21:38 Dose: 10 mg Spironolactone (Aldactone) 25 mg PO DAILY [facility] Last Admin: 02/17/17 11:06 Dose: 25 mg Tiotropium [place] (Spiriva) 18 mcg INH RQ24 [facility] Last Admin: 02/17/17 07:34 Dose: Not Given - Labs Labs: 02/16/17 13:23 02/16/17 13:23 PT 36.3 SECONDS (9.7-12.2) H* D 02/16/17 13:23 INR 3.0 02/16/17 13:23 APTT 41 SECONDS (21-34) H 02/16/17 13:23 - Constitutional Appears: Toxic - Head Exam Head Exam: ATRAUMATIC, NORMOCEPHALIC - Eye Exam Eye Exam: EOMI, PERRL - ENT Exam ENT Exam: Mucous Membranes Moist. absent: Mucous Membranes Dry - Neck Exam Neck Exam: Full ROM - Respiratory Exam Respiratory Exam: Rhonchi, Wheezes - Cardiovascular Exam Cardiovascular Exam: Gallop, +S1, +S2 - GI/Abdominal Exam GI & Abdominal Exam: Soft. absent: Guarding, Rigid, Tenderness - Extremities Exam Extremities Exam: Full ROM. absent: Pedal Edema - Neurological Exam Neurological Exam: Alert, Awake, Oriented x3 - Psychiatric Exam Psychiatric exam: Normal Affect, Normal Mood - Skin Skin Exam: Normal Color, Warm Assessment and Plan - Assessment and Plan (Free Text) Assessment: Pt pending discharge to [facility] once confirms pt's address and permanent residence. Pt not clear for discharge until is contacted. [facility] has been unable to contact thus far. Pt is medically stable for discharge to [facility]. Shortness of breath - secondary to chronic COPD vs pneumonia (hospital acquired) - Cefepime, Vanc and Cipro started (02/13) - Have not been able to get vanc trough because patient refusing blood work - ID consulted (Fidel) help appreciated - f/u recs - Blood and sputum Cxs (02/13) f/u - CXR 02/11 - New opacity at right lung base suspicious for pneumonia. Questionable opacity at left base. Mild congestive change. - CT Chest HR 02/05 - No definite CT evidence of interstitial lung disease. Cardiomegaly and [id number] pulmonary vascular congestion. Interval appearance of new round opacities/ nodules in the right upper lobe and left lower lobe since the previous study. The differential diagnosis includes multifocal pneumonia. The possibility of neoplasm is not totally excluded. Follow-up reassessment is recommended. Otherwise no significant interval change since the previous study dated 01/22/2017. COPD (chronic obstructive pulmonary disease) Exacerbation 02/13: Duonebs every 4 hours for SOB 02/11: Added mucomyst to breathing treatments. Will get repeat CXR 02/05: CT chest with high resolution - see above 02/01: Prednisone 40mg PO daily; Taper on discharge. Will require home oxygen. 01/29: Stop Solumedrol IVP; Start Prednisone 40mg PO daily; Taper on discharge. Will require home oxygen. -01/28: Solumedrol reduced to 40mg IVP Q12H. Prior to discharge, change Solumedrol -> Prednisone -01/19-01/28: Continue BIPAP, patient more compliant (sometimes refuses despite being SOB). -01/16: RAPID called due to SOB. BP 80/50's. Bolused 500cc NS. Ordered BIPAP and ABG, however patient refused. Placed back on NC 3L. -01/14-01/15: Patient complaining of SOB with exertion and orthopnea. Maintain Head of bed elevated 30 degrees. -01/13: PT session: 98% O2 at 2L at rest, 96% room air at rest sitting, 82% room air during ambulation, 88% at 2 liter ambulation. -01/12: Walked 20 steps today down bruno, and patient became dizzy, SOB, and almost collapsed. - Consulted Pulmonology, Dr. Cobb, f/u recs -planning for home O2 - Aware of HR in 140's and SOB after eating and low levels of exertion. -LDH 654H -HIV - negative -persistent shortness of breath - Patient with long history of smoking most likely has underlying COPD. Nebulizer treatment. Inhaled steroids. Spiriva. PFT as out pt Systolic dysfunction with acute on chronic heart failure - 02/11: dig level low, increase to 0.25 - EF 10-15%, mechanical MV- no regurg, tricuspid regurg. see full report -Chest CT 01/22 - Cardiomegaly. Cardiac valve prosthesis. Left-sided AICD. Dense coronary artery calcifications. -Small consolidation (favored to reflect atelectasis rather than pneumonia) at the left lung base. -Bibasilar atelectasis. Small airways disease. Mild ground-glass and fine nodular opacities within the right upper lobe, possibly infectious or inflammatory. -7 mm left upper lobe pulmonary nodule. Guidelines by the Fleischner society (radiology 2005; 237:390 5-400) suggests that in patients with low risk for lung cancer, with nodules less than or equal to 8 mm in diameter should have follow-up in approximately 6-12 months. In patients with high-risk, including smokers, follow-up is recommended 3-6 months. Patient with a known malignancy for risk for metastases should receive 3 month follow-up. -Hepatic capsular calcification. -Numerous low-density lesions throughout the liver, possibly cysts. Decompressed gallbladder limits evaluation. Bilateral hypodense renal lesions. Right adrenal gland hypertrophy. 12 mm left adrenal gland nodule measures approximately 9 Hounsfield units, likely adenoma. -Consulted Cardiology, Dr. Arguelles - f/u recs -01/22: Lasix 40mg IVP daily, Spironolactone 25mg daily. CXR - no interval pathology change. -01/19: HOLD LASIX FOR 1 TO 2 DAYS AND CONT MUCINEX. PT PRERENAL AND APPEARS DRY. ON BOTH LASIX AND SPIRONOLACTONE. -SOB APPEARS TO BE SECONDARY TO PULM ETIOLOGY. IMPROVES WITH NEBS. PT WITH RHONCHI B/L. MAY BENEFIT FROM PULM TOILET. -will attempt to obtain company [facility] for interrogation. -likely deconditioned. will benefit from rehab -01/16: RAPID called due to SOB. BP 80/50's. Bolused 500cc NS. Ordered BIPAP and ABG, however patient refused. Placed back on NC 3L. ProBNP 4070H (less than # on admission) and KACY negative. -01/16: Decrease to Lasix 40mg PO daily (was BID). Admit to telemetry, BNP 4560 on admission Lisinopril 10mg daily Aldactone 25mg PO Daily patient with AICD, will check echo to determine EF CXR 01/03: mild cardiomegaly, mild pulmonary venous congestion. s/p sternotomy, aortic valve replacement, AICD H/O mitral valve replacement with mechanical valve Monitor INR and adjust Coumadin as necessary Cardiac valve replacement 6-7yrs ago Consulted Cardiology, Dr. Arguelles - f/u recs -echocardiogram reviewed. valve leaflets are opening and functional. There is no signficant gradient across the valve. -recommend INR 2.5 to 3.5. STOP Lovenox 3/5 STOP Heparin Drip - cardiac protocol, with bolus (because patient is refusing blood draws) Chronic atrial fibrillation Consulted Cardiology, Dr. Arguelles - f/u recs -Rate controlled -echocardiogram reviewed. valve leaflets are opening and functional. There is no significant gradient across the valve. -recommend INR 2.5 to 3.5. -See PT/INR trends above Coumadin as above - Patient's INR is difficult to maintain with the therapeutic range therefore we will give another 3 mg tonight and check INR tomorrow. Will try to convince the patient to get bloodwork done today. STOP Lovenox 3/5 Cough, acute - will add mucocyst -Mucinex 600mg PO BID -01/28: cough intermittent -01/24 does not complain of cough -01/19-01/22: Persists. Non-productive. Continue Mucinex. -01/15: patient developed productive cough with yellow sputum today. CAD (coronary artery disease) Consulted Cardiology, Dr. Arguelles - f/u recs -Aware of HR in 140's and SOB after eating and low levels of exertion. -unknown graft status. no evidence of ischemia at present -No current angina History of RI (myocardial infarction) Crestor 10mg PO HS resumed HOLD Crestor 10mg PO HS (last dose 01/18- due to elevated LFTs) ROMIs negative x3 EKG paced Denies chest pain Transaminitis, acute Crestor resumed 01/31: AST/ALT normalized; consider resuming crestor. 01/30 patient refusing labs. will re-attempt 01/28-01/29: Improving. hold crestor (since 01/18) 01/27: AST 37 / ALT 124 - continue to hold crestor. 01/25-01/26: Patient refused blood work 01/24: 51/164 AST / ALT down trending 01/22-01/23: AST / ALT down trending - continue to hold Crestor 01/21: AST 57 / ALT 188, decreasing. HOLD Crestor 10mg PO HS (last dose 01/18- due to elevated LFTs) 01/20: AST 75 / ALT 205 01/19: AST 70 / ALT 201 - increasing -> hold crestor for 2 nights 01/19, 01/20 01/16: AST 90 / ALT 164 - increasing -> hold Crestor tonight. - AST 77 / ALT 98 -> previously normal. - Continue to monitor Electrolyte Imbalance 01/30 patient refusing labs, will re-attempt 01/21-01/29: Hyponatremia, stable Hyperkalemia - resolved Hypokalemia, Tachycardia HR grossly WNL, continue to monitor 01/20-01/23: HR WNL 01/13: Patient becomes SOB very easily, desaturating to 82% while ambulating. Anytime he eats or gets up, HR climbs into 140's EKG in ER: sinus tachycardia at 100, paced, incomplete RBBB Discontinued cardizem drip of 5mg/h started in the ER Lower extremity edema LE Duplex - negative. see full report. Prophylactic measure Coumadin as above. protonix 40mg daily SCD contraindicated due to LE edema D/C when bed available <Johnnie Otoole Jr. - Last Filed: 02/20/17 16:46> Objective - Vital Signs/Intake and Output Vital Signs (last 24 hours): Temp Pulse Resp BP Pulse Ox 97.5 F L 74 20 99/61 L 99 02/20/17 15:41 02/20/17 15:41 02/20/17 15:41 02/20/17 15:41 02/20/17 15:41 Intake and Output: 02/20/17 02/20/17 06:59 18:59 Intake Total 760 Output Total 1100 Balance -340 - Medications Medications: Current Medications Acetylcysteine (Acetylcysteine 20%) 4 ml INH RQ4 [facility] Last Admin: 02/20/17 16:17 Dose: 4 ml Albuterol Sulfate (Albuterol 0.042% Inhal Laura (1.25mg/3ml) Ud) 1.25 mg INH RQ4 [facility] Last Admin: 02/20/17 16:17 Dose: 1.25 mg Benzocaine/Menthol (Cepacol Sore Throat) 1 sarah MT Q6H PRN PRN Reason: Sore Throat Last Admin: 02/15/17 09:32 Dose: 1 sarah Budesonide (Pulmicort Respules) 0.5 mg INH RQ12 [facility] Last Admin: 02/13/17 07:34 Dose: 0.5 mg Cefpodoxime Proxetil (Vantin) 200 mg PO Q12H [facility] Last Admin: 02/20/17 14:44 Dose: 200 mg Digoxin (Lanoxin) 0.25 mg PO DAILY@1800 [facility] Last Admin: 02/19/17 17:32 Dose: 0.25 mg Famotidine (Pepcid) 20 mg PO DAILY [facility] Last Admin: 02/20/17 11:19 Dose: 20 mg Guaifenesin (Mucinex La) 600 mg PO BID [facility] Last Admin: 02/20/17 11:19 Dose: 600 mg Ipratropium [place] (Atrovent) 0.5 mg IH RQ4 [facility] Last Admin: 02/20/17 16:17 Dose: 0.5 mg Lisinopril (Zestril) 2.5 mg PO DAILY [facility] Last Admin: 02/20/17 11:19 Dose: 2.5 mg Prednisone (Prednisone Tab) 20 mg PO DAILY [facility] Last Admin: 02/20/17 11:19 Dose: 20 mg Spironolactone (Aldactone) 25 mg PO DAILY [facility] Last Admin: 02/20/17 11:19 Dose: 25 mg - Labs Labs: 02/20/17 11:24 02/20/17 11:24 PT 19.9 SECONDS (9.7-12.2) H 02/20/17 11:24 INR 1.7 02/20/17 11:24 APTT 41 SECONDS (21-34) H 02/16/17 13:23 Attending/Attestation - Attestation I have personally seen and examined this patient.: Yes I have fully participated in the care of the patient.: Yes I have reviewed all pertinent clinical information, including history, physical exam and plan: Yes Notes (Text): 02/20/17 16:45 Patient seen and examined. Reviewed resident note and plan of care and findings as discussed
[2017-02-17] MEDS: Digoxin 250 mcg (0.25 mg) Tab PO SCH (17:15)
[2017-02-18] MEDS: Albuterol 0.042% Inhal Sol (1.25 mg/3 mL) UD INH SCH ×6 (00:30→19:16)
[2017-02-18] MEDS: Ipratropium 0.02% Inhal Soln (0.5 mg/2.5 ml) UD IH SCH ×6 (00:30→19:17)
[2017-02-18] MEDS: Acetylcysteine 20% Inhal Soln (4ml) INH SCH ×5 (01:19→19:16)
--- NOTE | 2017-02-18 05:45 | CP.PCM.PN ---
Subjective - Date & Time of Evaluation Date of Evaluation: 02/17/17 Time of Evaluation: 08:35 - Subjective Subjective: patient is sitting in bed. Has productive cough Objective - Vital Signs/Intake and Output Vital Signs (last 24 hours): Temp Pulse Resp BP Pulse Ox 98.3 F 83 20 132/66 97 02/17/17 23:25 02/17/17 23:30 02/17/17 23:25 02/17/17 23:25 02/17/17 23:25 - Medications Medications: Current Medications Acetylcysteine (Acetylcysteine 20%) 4 ml INH RQ6 [facility] Last Admin: 02/18/17 01:19 Dose: Not Given Albuterol Sulfate (Albuterol 0.042% Inhal Laura (1.25mg/3ml) Ud) 1.25 mg INH RQ4 [facility] Last Admin: 02/18/17 00:30 Dose: Not Given Benzocaine/Menthol (Cepacol Sore Throat) 1 sarah MT Q6H PRN PRN Reason: Sore Throat Last Admin: 02/15/17 09:32 Dose: 1 sarah Budesonide (Pulmicort Respules) 0.5 mg INH RQ12 [facility] Last Admin: 02/13/17 07:34 Dose: 0.5 mg Digoxin (Lanoxin) 0.25 mg PO DAILY@1800 [facility] Last Admin: 02/17/17 17:15 Dose: 0.25 mg Famotidine (Pepcid) 20 mg PO DAILY [facility] Last Admin: 02/17/17 11:05 Dose: 20 mg Guaifenesin (Mucinex La) 600 mg PO BID [facility] Last Admin: 02/17/17 17:15 Dose: 600 mg Cefepime HCl (Maxipime Iv 2 Gm Premix) 100 mls @ 100 mls/hr IVPB Q12 JC Stop: 02/18/17 22:01 Last Admin: 02/17/17 21:02 Dose: Not Given Vancomycin/Sodium Chloride (Vancocin) 200 mls @ 100 mls/hr IVPB DAILY [facility] Last Admin: 02/17/17 11:05 Dose: Not Given Ipratropium [place] (Atrovent) 0.5 mg IH RQ4 [facility] Last Admin: 02/18/17 00:30 Dose: Not Given Lisinopril (Zestril) 2.5 mg PO DAILY [facility] Last Admin: 02/17/17 11:05 Dose: 2.5 mg Prednisone (Prednisone Tab) 20 mg PO DAILY [facility] Last Admin: 02/17/17 11:05 Dose: 20 mg Spironolactone (Aldactone) 25 mg PO DAILY [facility] Last Admin: 02/17/17 11:06 Dose: 25 mg Tiotropium [place] (Spiriva) 18 mcg INH RQ24 [facility] Last Admin: 02/17/17 07:34 Dose: Not Given - Labs Labs: 02/16/17 13:23 02/16/17 13:23 PT 36.3 SECONDS (9.7-12.2) H* D 02/16/17 13:23 INR 3.0 02/16/17 13:23 APTT 41 SECONDS (21-34) H 02/16/17 13:23 - Constitutional Appears: Non-toxic - Head Exam Head Exam: NORMAL INSPECTION - Eye Exam Eye Exam: Normal appearance - ENT Exam ENT Exam: Mucous Membranes Moist - Neck Exam Neck Exam: Full ROM - Respiratory Exam Respiratory Exam: Decreased Breath Sounds, Wheezes - Cardiovascular Exam Cardiovascular Exam: REGULAR RHYTHM - GI/Abdominal Exam GI & Abdominal Exam: Normal Bowel Sounds - Rectal Exam Rectal Exam: Deferred - Extremities Exam Extremities Exam: Full ROM - Back Exam Back Exam: NORMAL INSPECTION - Neurological Exam Neurological Exam: Alert - Psychiatric Exam Psychiatric exam: Normal Affect - Skin Skin Exam: Normal Color Assessment and Plan (1) Systolic dysfunction with acute on chronic heart failure Assessment & Plan: imporving. current status seems more pulmonary in origin Status: Acute (2) Chronic atrial fibrillation Assessment & Plan: coumadin Status: Chronic (3) CAD (coronary artery disease) Status: Chronic (4) H/O mitral valve replacement with mechanical valve Assessment & Plan: INR 2.5-3.5 Status: Chronic
[2017-02-18] MEDS: guaiFENesin 600 mg ER Tab PO SCH ×2 (09:40→17:20)
[2017-02-18] MEDS: Cefepime IV 2 gm in Dextrose 100 ML IVPB SCH ×2 (11:18→21:10)
[2017-02-18] MEDS: Vancomycin 1 gm/NS 200 ml 200 ML IVPB SCH (11:20)
--- NOTE | 2017-02-18 13:02 | CP.PCM.PN ---
<James Lee - Last Filed: 02/18/17 12:59> Subjective - Date & Time of Evaluation Date of Evaluation: 02/18/17 Time of Evaluation: 07:17 - Subjective Subjective: Pt seen and examined. Pt complaining of shortness of breath and cough. Pt denies fever, chills, chest pain, nausea, and vomiting. Objective - Vital Signs/Intake and Output Vital Signs (last 24 hours): Temp Pulse Resp BP Pulse Ox 97.8 F 65 18 93/51 L 96 02/18/17 07:15 02/18/17 07:15 02/18/17 07:15 02/18/17 07:15 02/18/17 07:15 Intake and Output: 02/18/17 02/18/17 06:59 18:59 Output Total 900 Balance -900 - Medications Medications: Current Medications Acetylcysteine (Acetylcysteine 20%) 4 ml INH RQ4 [facility] Last Admin: 02/18/17 11:18 Dose: 4 ml Albuterol Sulfate (Albuterol 0.042% Inhal Laura (1.25mg/3ml) Ud) 1.25 mg INH RQ4 [facility] Last Admin: 02/18/17 11:18 Dose: 1.25 mg Benzocaine/Menthol (Cepacol Sore Throat) 1 sarah MT Q6H PRN PRN Reason: Sore Throat Last Admin: 02/15/17 09:32 Dose: 1 sarah Budesonide (Pulmicort Respules) 0.5 mg INH RQ12 [facility] Last Admin: 02/13/17 07:34 Dose: 0.5 mg Digoxin (Lanoxin) 0.25 mg PO DAILY@1800 [facility] Last Admin: 02/17/17 17:15 Dose: 0.25 mg Famotidine (Pepcid) 20 mg PO DAILY [facility] Last Admin: 02/18/17 09:41 Dose: 20 mg Guaifenesin (Mucinex La) 600 mg PO BID [facility] Last Admin: 02/18/17 09:40 Dose: 600 mg Cefepime HCl (Maxipime Iv 2 Gm Premix) 100 mls @ 100 mls/hr IVPB Q12 [facility] Stop: 02/18/17 22:01 Last Admin: 02/18/17 11:18 Dose: Not Given Vancomycin/Sodium Chloride (Vancocin) 200 mls @ 100 mls/hr IVPB DAILY [facility] Last Admin: 02/18/17 11:20 Dose: Not Given Ipratropium Fitzwilliam (Atrovent) 0.5 mg IH RQ4 [facility] Last Admin: 02/18/17 11:18 Dose: 0.5 mg Lisinopril (Zestril) 2.5 mg PO DAILY [facility] Last Admin: 02/18/17 09:40 Dose: 2.5 mg Prednisone (Prednisone Tab) 20 mg PO DAILY [facility] Last Admin: 02/18/17 09:40 Dose: 20 mg Spironolactone (Aldactone) 25 mg PO DAILY [facility] Last Admin: 02/18/17 09:40 Dose: 25 mg - Labs Labs: 02/16/17 13:23 02/16/17 13:23 PT 23.9 SECONDS (9.7-12.2) H D 02/18/17 11:13 INR 2.0 D 02/18/17 11:13 APTT 41 SECONDS (21-34) H 02/16/17 13:23 - Constitutional Appears: No Acute Distress - Head Exam Head Exam: ATRAUMATIC, NORMOCEPHALIC - Eye Exam Eye Exam: EOMI, PERRL - ENT Exam ENT Exam: Mucous Membranes Moist. absent: Mucous Membranes Dry - Respiratory Exam Respiratory Exam: Rhonchi, Wheezes - Cardiovascular Exam Cardiovascular Exam: Gallop, +S1, +S2 - GI/Abdominal Exam GI & Abdominal Exam: Soft. absent: Distended, Tenderness - Extremities Exam Extremities Exam: Full ROM. absent: Pedal Edema - Neurological Exam Neurological Exam: Alert, Awake, Oriented x3 - Psychiatric Exam Psychiatric exam: Normal Affect, Normal Mood - Skin Skin Exam: Normal Color, Warm Assessment and Plan - Assessment and Plan (Free Text) Assessment: Assessment: Pt pending discharge to [facility] once confirms pt's address and permanent residence. Pt not clear for discharge until is contacted. [facility] has been unable to contact thus far. Pt is medically stable for discharge to [facility]. Pt receiving daily coumadin. Pt has been refusing blood work daily, but agreed to have his INR drawn today. F/U INR. Shortness of breath - secondary to chronic COPD vs pneumonia (hospital acquired) - Cefepime, Vanc and Cipro started (02/13) - Have not been able to get vanc trough because patient refusing blood work - ID consulted (Fidel) help appreciated - f/u recs - Blood and sputum Cxs (02/13) f/u - CXR 02/11 - New opacity at right lung base suspicious for pneumonia. Questionable opacity at left base. Mild congestive change. - CT Chest HR 02/05 - No definite CT evidence of interstitial lung disease. Cardiomegaly and [id number] pulmonary vascular congestion. Interval appearance of new round opacities/ nodules in the right upper lobe and left lower lobe since the previous study. The differential diagnosis includes multifocal pneumonia. The possibility of neoplasm is not totally excluded. Follow-up reassessment is recommended. Otherwise no significant interval change since the previous study dated 01/22/2017. COPD (chronic obstructive pulmonary disease) Exacerbation 02/13: Duonebs every 4 hours for SOB 02/11: Added mucomyst to breathing treatments. Will get repeat CXR 02/05: CT chest with high resolution - see above 02/01: Prednisone 40mg PO daily; Taper on discharge. Will require home oxygen. 01/29: Stop Solumedrol IVP; Start Prednisone 40mg PO daily; Taper on discharge. Will require home oxygen. -01/28: Solumedrol reduced to 40mg IVP Q12H. Prior to discharge, change Solumedrol -> Prednisone -01/19-01/28: Continue BIPAP, patient more compliant (sometimes refuses despite being SOB). -01/16: RAPID called due to SOB. BP 80/50's. Bolused 500cc NS. Ordered BIPAP and ABG, however patient refused. Placed back on NC 3L. -01/14-01/15: Patient complaining of SOB with exertion and orthopnea. Maintain Head of bed elevated 30 degrees. -01/13: PT session: 98% O2 at 2L at rest, 96% room air at rest sitting, 82% room air during ambulation, 88% at 2 liter ambulation. -01/12: Walked 20 steps today down bruno, and patient became dizzy, SOB, and almost collapsed. - Consulted Pulmonology, Dr. Cobb, f/u recs -planning for home O2 - Aware of HR in 140's and SOB after eating and low levels of exertion. -LDH 654H -HIV - negative -persistent shortness of breath - Patient with long history of smoking most likely has underlying COPD. Nebulizer treatment. Inhaled steroids. Spiriva. PFT as out pt Systolic dysfunction with acute on chronic heart failure - 02/11: dig level low, increase to 0.25 - EF 10-15%, mechanical MV- no regurg, tricuspid regurg. see full report -Chest CT 01/22 - Cardiomegaly. Cardiac valve prosthesis. Left-sided AICD. Dense coronary artery calcifications. -Small consolidation (favored to reflect atelectasis rather than pneumonia) at the left lung base. -Bibasilar atelectasis. Small airways disease. Mild ground-glass and fine nodular opacities within the right upper lobe, possibly infectious or inflammatory. -7 mm left upper lobe pulmonary nodule. Guidelines by the Fleischner society (radiology 2005; 237:390 5-400) suggests that in patients with low risk for lung cancer, with nodules less than or equal to 8 mm in diameter should have follow-up in approximately 6-12 months. In patients with high-risk, including smokers, follow-up is recommended 3-6 months. Patient with a known malignancy for risk for metastases should receive 3 month follow-up. -Hepatic capsular calcification. -Numerous low-density lesions throughout the liver, possibly cysts. Decompressed gallbladder limits evaluation. Bilateral hypodense renal lesions. Right adrenal gland hypertrophy. 12 mm left adrenal gland nodule measures approximately 9 Hounsfield units, likely adenoma. -Consulted Cardiology, Dr. Arguelles - f/u recs -01/22: Lasix 40mg IVP daily, Spironolactone 25mg daily. CXR - no interval pathology change. -01/19: HOLD LASIX FOR 1 TO 2 DAYS AND CONT MUCINEX. PT PRERENAL AND APPEARS DRY. ON BOTH LASIX AND SPIRONOLACTONE. -SOB APPEARS TO BE SECONDARY TO PULM ETIOLOGY. IMPROVES WITH NEBS. PT WITH RHONCHI B/L. MAY BENEFIT FROM PULM TOILET. -will attempt to obtain company of [facility] for interrogation. -likely deconditioned. will benefit from rehab -01/16: RAPID called due to SOB. BP 80/50's. Bolused 500cc NS. Ordered BIPAP and ABG, however patient refused. Placed back on NC 3L. ProBNP 4070H (less than # on admission) and KACY negative. -01/16: Decrease to Lasix 40mg PO daily (was BID). Admit to telemetry, BNP 4560 on admission Lisinopril 10mg daily Aldactone 25mg PO Daily patient with AICD, will check echo to determine EF CXR 01/03: mild cardiomegaly, mild pulmonary venous congestion. s/p sternotomy, aortic valve replacement, AICD H/O mitral valve replacement with mechanical valve Monitor INR and adjust Coumadin as necessary Cardiac valve replacement 6-7yrs ago Consulted Cardiology, Dr. Arguelles - f/u recs -echocardiogram reviewed. valve leaflets are opening and functional. There is no signficant gradient across the valve. -recommend INR 2.5 to 3.5. STOP Lovenox 3/5 STOP Heparin Drip - cardiac protocol, with bolus (because patient is refusing blood draws) Chronic atrial fibrillation Consulted Cardiology, Dr. Arguelles - f/u recs -Rate controlled -echocardiogram reviewed. valve leaflets are opening and functional. There is no significant gradient across the valve. -recommend INR 2.5 to 3.5. -See PT/INR trends above Coumadin as above - Patient's INR is difficult to maintain with the therapeutic range therefore we will give another 3 mg tonight and check INR tomorrow. Will try to convince the patient to get bloodwork done today. STOP Lovenox 01/11 Cough, acute - will add mucocyst -Mucinex 600mg PO BID -01/28: cough intermittent -01/24 does not complain of cough -01/19-01/22: Persists. Non-productive. Continue Mucinex. -01/15: patient developed productive cough with yellow sputum today. CAD (coronary artery disease) Consulted Cardiology, Dr. Arguelles - f/u recs -Aware of HR in 140's and SOB after eating and low levels of exertion. -unknown graft status. no evidence of ischemia at present -No current angina History of NV (myocardial infarction) Crestor 10mg PO HS resumed HOLD Crestor 10mg PO HS (last dose 01/18- due to elevated LFTs) ROMIs negative x3 EKG paced Denies chest pain Transaminitis, acute Crestor resumed 01/31: AST/ALT normalized; consider resuming crestor. 01/30 patient refusing labs. will re-attempt 01/28-01/29: Improving. hold crestor (since 01/18) 01/27: AST 37 / ALT 124 - continue to hold crestor. 01/25-01/26: Patient refused blood work 01/24: 51/164 AST / ALT down trending 01/22-01/23: AST / ALT down trending - continue to hold Crestor 01/21: AST 57 / ALT 188, decreasing. HOLD Crestor 10mg PO HS (last dose 01/18- due to elevated LFTs) 01/20: AST 75 / ALT 205 01/19: AST 70 / ALT 201 - increasing -> hold crestor for 2 nights 01/19, 01/20 01/16: AST 90 / ALT 164 - increasing -> hold Crestor tonight. - AST 77 / ALT 98 -> previously normal. - Continue to monitor Electrolyte Imbalance 01/30 patient refusing labs, will re-attempt 01/21-01/29: Hyponatremia, stable Hyperkalemia - resolved Hypokalemia, Tachycardia HR grossly WNL, continue to monitor 01/20-01/23: HR WNL 01/13: Patient becomes SOB very easily, desaturating to 82% while ambulating. Anytime he eats or gets up, HR climbs into 140's EKG in ER: sinus tachycardia at 100, paced, incomplete RBBB Discontinued cardizem drip of 5mg/h started in the ER Lower extremity edema LE Duplex - negative. see full report. Prophylactic measure Coumadin as above. protonix 40mg daily SCD contraindicated due to LE edema D/C when bed available <Johnnie Otoole Jr. - Last Filed: 02/20/17 16:49> Objective - Vital Signs/Intake and Output Vital Signs (last 24 hours): Temp Pulse Resp BP Pulse Ox 97.5 F L 74 20 99/61 L 99 02/20/17 15:41 02/20/17 15:41 02/20/17 15:41 02/20/17 15:41 02/20/17 15:41 Intake and Output: 02/20/17 02/20/17 06:59 18:59 Intake Total 760 Output Total 1100 Balance -340 - Medications Medications: Current Medications Acetylcysteine (Acetylcysteine 20%) 4 ml INH RQ4 [facility] Last Admin: 02/20/17 16:17 Dose: 4 ml Albuterol Sulfate (Albuterol 0.042% Inhal Laura (1.25mg/3ml) Ud) 1.25 mg INH RQ4 [facility] Last Admin: 02/20/17 16:17 Dose: 1.25 mg Benzocaine/Menthol (Cepacol Sore Throat) 1 sarah MT Q6H PRN PRN Reason: Sore Throat Last Admin: 02/15/17 09:32 Dose: 1 sarah Budesonide (Pulmicort Respules) 0.5 mg INH RQ12 [facility] Last Admin: 02/13/17 07:34 Dose: 0.5 mg Cefpodoxime Proxetil (Vantin) 200 mg PO Q12H [facility] Last Admin: 02/20/17 14:44 Dose: 200 mg Digoxin (Lanoxin) 0.25 mg PO DAILY@1800 [facility] Last Admin: 02/19/17 17:32 Dose: 0.25 mg Famotidine (Pepcid) 20 mg PO DAILY [facility] Last Admin: 02/20/17 11:19 Dose: 20 mg Guaifenesin (Mucinex La) 600 mg PO BID [facility] Last Admin: 02/20/17 11:19 Dose: 600 mg Ipratropium Fitzwilliam (Atrovent) 0.5 mg IH RQ4 [facility] Last Admin: 02/20/17 16:17 Dose: 0.5 mg Lisinopril (Zestril) 2.5 mg PO DAILY [facility] Last Admin: 02/20/17 11:19 Dose: 2.5 mg Prednisone (Prednisone Tab) 20 mg PO DAILY [facility] Last Admin: 02/20/17 11:19 Dose: 20 mg Spironolactone (Aldactone) 25 mg PO DAILY [facility] Last Admin: 02/20/17 11:19 Dose: 25 mg - Labs Labs: 02/20/17 11:24 02/20/17 11:24 PT 19.9 SECONDS (9.7-12.2) H 02/20/17 11:24 INR 1.7 02/20/17 11:24 APTT 41 SECONDS (21-34) H 02/16/17 13:23 Attending/Attestation - Attestation I have personally seen and examined this patient.: Yes I have fully participated in the care of the patient.: Yes I have reviewed all pertinent clinical information, including history, physical exam and plan: Yes Notes (Text): 02/20/17 16:49 Patient seen and examined. Reviewed resident note and agree with findings and plan of care
[2017-02-18] MEDS: Digoxin 250 mcg (0.25 mg) Tab PO SCH (17:20)
[2017-02-19] MEDS: Albuterol 0.042% Inhal Sol (1.25 mg/3 mL) UD INH SCH ×6 (00:30→19:06)
[2017-02-19] MEDS: Ipratropium 0.02% Inhal Soln (0.5 mg/2.5 ml) UD IH SCH ×6 (00:30→19:06)
[2017-02-19] MEDS: Acetylcysteine 20% Inhal Soln (4ml) INH SCH ×6 (00:30→19:05)
[2017-02-19] MEDS: guaiFENesin 600 mg ER Tab PO SCH ×2 (10:10→17:31)
[2017-02-19 11:03] LABS: INR 1.7
--- NOTE | 2017-02-19 15:36 | CP.PCM.PN ---
<James Lee - Last Filed: 02/19/17 15:33> Subjective - Date & Time of Evaluation Date of Evaluation: 02/19/17 Time of Evaluation: 09:14 - Subjective Subjective: Pt seen and examined. Pt complaining of shortness of breath and cough. Pt denies fever, chills, chest pain, shortness of breath, nausea, and vomiting. Objective - Vital Signs/Intake and Output Vital Signs (last 24 hours): Temp Pulse Resp BP Pulse Ox 97.6 F 66 20 96/64 L 98 02/19/17 08:19 02/19/17 08:19 02/19/17 08:19 02/19/17 08:19 02/18/17 23:30 Intake and Output: 02/19/17 02/19/17 06:59 18:59 Output Total 800 Balance -800 - Medications Medications: Current Medications Acetylcysteine (Acetylcysteine 20%) 4 ml INH RQ4 [facility] Last Admin: 02/19/17 11:16 Dose: 4 ml Albuterol Sulfate (Albuterol 0.042% Inhal Laura (1.25mg/3ml) Ud) 1.25 mg INH RQ4 [facility] Last Admin: 02/19/17 11:16 Dose: 1.25 mg Benzocaine/Menthol (Cepacol Sore Throat) 1 sarah MT Q6H PRN PRN Reason: Sore Throat Last Admin: 02/15/17 09:32 Dose: 1 sarah Budesonide (Pulmicort Respules) 0.5 mg INH RQ12 [facility] Last Admin: 02/13/17 07:34 Dose: 0.5 mg Cefpodoxime Proxetil (Vantin) 200 mg PO Q12H [facility] Digoxin (Lanoxin) 0.25 mg PO DAILY@1800 [facility] Last Admin: 02/18/17 17:20 Dose: 0.25 mg Famotidine (Pepcid) 20 mg PO DAILY [facility] Last Admin: 02/19/17 10:09 Dose: 20 mg Guaifenesin (Mucinex La) 600 mg PO BID [facility] Last Admin: 02/19/17 10:10 Dose: 600 mg Vancomycin/Sodium Chloride (Vancocin) 200 mls @ 100 mls/hr IVPB DAILY [facility] Last Admin: 02/18/17 11:20 Dose: Not Given Ipratropium [place] (Atrovent) 0.5 mg IH RQ4 [facility] Last Admin: 02/19/17 11:16 Dose: 0.5 mg Lisinopril (Zestril) 2.5 mg PO DAILY [facility] Last Admin: 02/19/17 10:10 Dose: 2.5 mg Prednisone (Prednisone Tab) 20 mg PO DAILY [facility] Last Admin: 02/19/17 10:09 Dose: 20 mg Spironolactone (Aldactone) 25 mg PO DAILY [facility] Last Admin: 02/19/17 10:09 Dose: 25 mg Warfarin Sodium (Coumadin) 3 mg PO 1800 [facility] Stop: 02/19/17 18:01 - Labs Labs: 02/16/17 13:23 02/16/17 13:23 PT 19.4 SECONDS (9.7-12.2) H 02/19/17 10:51 INR 1.7 02/19/17 10:51 APTT 41 SECONDS (21-34) H 02/16/17 13:23 - Constitutional Appears: Toxic, No Acute Distress - Head Exam Head Exam: ATRAUMATIC, NORMOCEPHALIC - Eye Exam Eye Exam: EOMI, PERRL - ENT Exam ENT Exam: Mucous Membranes Moist - Neck Exam Neck Exam: Full ROM. absent: Lymphadenopathy - Respiratory Exam Respiratory Exam: Rhonchi, Wheezes - Cardiovascular Exam Cardiovascular Exam: Gallop, +S1, +S2 - GI/Abdominal Exam GI & Abdominal Exam: Soft. absent: Tenderness - Extremities Exam Extremities Exam: Full ROM. absent: Pedal Edema - Neurological Exam Neurological Exam: Alert, Awake, Oriented x3 - Psychiatric Exam Psychiatric exam: Normal Affect, Normal Mood - Skin Skin Exam: Normal Color, Warm Assessment and Plan - Assessment and Plan (Free Text) Assessment: Assessment: 02/19/17: Pt pending discharge to [facility] once confirms pt's address and permanent residence. Pt not clear for discharge until is contacted. [facility] has been unable to contact thus far. Pt is medically stable for discharge to [facility]. Pt receiving daily coumadin. Pt's INR 1.7 today. Will continue giving coumadin. Discontinued vancomycin. On Vantin, as per ID, Dr. Parra. Shortness of breath - secondary to chronic COPD vs pneumonia (hospital acquired) - Cefepime, Vanc and Cipro started (02/13) - Have not been able to get vanc trough because patient refusing blood work - ID consulted (Fidel) help appreciated - f/u recs - Blood and sputum Cxs (02/13) f/u - CXR 02/11 - New opacity at right lung base suspicious for pneumonia. Questionable opacity at left base. Mild congestive change. - CT Chest HR 02/05 - No definite CT evidence of interstitial lung disease. Cardiomegaly and yibr-ji-sucoztyt pulmonary vascular congestion. Interval appearance of new round opacities/ nodules in the right upper lobe and left lower lobe since the previous study. The differential diagnosis includes multifocal pneumonia. The possibility of neoplasm is not totally excluded. Follow-up reassessment is recommended. Otherwise no significant interval change since the previous study dated 01/22/2017. COPD (chronic obstructive pulmonary disease) Exacerbation 02/13: Duonebs every 4 hours for SOB 02/11: Added mucomyst to breathing treatments. Will get repeat CXR 02/05: CT chest with high resolution - see above 02/01: Prednisone 40mg PO daily; Taper on discharge. Will require home oxygen. 01/29: Stop Solumedrol IVP; Start Prednisone 40mg PO daily; Taper on discharge. Will require home oxygen. -01/28: Solumedrol reduced to 40mg IVP Q12H. Prior to discharge, change Solumedrol -> Prednisone -01/19-01/28: Continue BIPAP, patient more compliant (sometimes refuses despite being SOB). -01/16: RAPID called due to SOB. BP 80/50's. Bolused 500cc NS. Ordered BIPAP and ABG, however patient refused. Placed back on NC 3L. -01/14-01/15: Patient complaining of SOB with exertion and orthopnea. Maintain Head of bed elevated 30 degrees. -01/13: PT session: 98% O2 at 2L at rest, 96% room air at rest sitting, 82% room air during ambulation, 88% at 2 liter ambulation. -01/12: Walked 20 steps today down bruno, and patient became dizzy, SOB, and almost collapsed. - Consulted Pulmonology, Dr. Cobb, f/u recs -planning for home O2 - Aware of HR in 140's and SOB after eating and low levels of exertion. -LDH 654H -HIV - negative -persistent shortness of breath - Patient with long history of smoking most likely has underlying COPD. Nebulizer treatment. Inhaled steroids. Spiriva. PFT as out pt Systolic dysfunction with acute on chronic heart failure - 02/11: dig level low, increase to 0.25 - EF 10-15%, mechanical MV- no regurg, tricuspid regurg. see full report -Chest CT 01/22 - Cardiomegaly. Cardiac valve prosthesis. Left-sided AICD. Dense coronary artery calcifications. -Small consolidation (favored to reflect atelectasis rather than pneumonia) at the left lung base. -Bibasilar atelectasis. Small airways disease. Mild ground-glass and fine nodular opacities within the right upper lobe, possibly infectious or inflammatory. -7 mm left upper lobe pulmonary nodule. Guidelines by the Fleischner society (radiology 2005; 237:390 5-400) suggests that in patients with low risk for lung cancer, with nodules less than or equal to 8 mm in diameter should have follow-up in approximately 6-12 months. In patients with high-risk, including smokers, follow-up is recommended 3-6 months. Patient with a known malignancy for risk for metastases should receive 3 month follow-up. -Hepatic capsular calcification. -Numerous low-density lesions throughout the liver, possibly cysts. Decompressed gallbladder limits evaluation. Bilateral hypodense renal lesions. Right adrenal gland hypertrophy. 12 mm left adrenal gland nodule measures approximately 9 Hounsfield units, likely adenoma. -Consulted Cardiology, Dr. Arguelles - f/u recs -01/22: Lasix 40mg IVP daily, Spironolactone 25mg daily. CXR - no interval pathology change. -01/19: HOLD LASIX FOR 1 TO 2 DAYS AND CONT MUCINEX. PT PRERENAL AND APPEARS DRY. ON BOTH LASIX AND SPIRONOLACTONE. -SOB APPEARS TO BE SECONDARY TO PULM ETIOLOGY. IMPROVES WITH NEBS. PT WITH RHONCHI B/L. MAY BENEFIT FROM PULM TOILET. -will attempt to obtain company of [facility] for interrogation. -likely deconditioned. will benefit from rehab -01/16: RAPID called due to SOB. BP 80/50's. Bolused 500cc NS. Ordered BIPAP and ABG, however patient refused. Placed back on NC 3L. ProBNP 4070H (less than # on admission) and KACY negative. -01/16: Decrease to Lasix 40mg PO daily (was BID). Admit to telemetry, BNP 4560 on admission Lisinopril 10mg daily Aldactone 25mg PO Daily patient with AICD, will check echo to determine EF CXR 01/03: mild cardiomegaly, mild pulmonary venous congestion. s/p sternotomy, aortic valve replacement, AICD H/O mitral valve replacement with mechanical valve Monitor INR and adjust Coumadin as necessary Cardiac valve replacement 6-7yrs ago Consulted Cardiology, Dr. Arguelles - f/u recs -echocardiogram reviewed. valve leaflets are opening and functional. There is no signficant gradient across the valve. -recommend INR 2.5 to 3.5. STOP Lovenox 3/5 STOP Heparin Drip - cardiac protocol, with bolus (because patient is refusing blood draws) Chronic atrial fibrillation Consulted Cardiology, Dr. Arguelles - f/u recs -Rate controlled -echocardiogram reviewed. valve leaflets are opening and functional. There is no significant gradient across the valve. -recommend INR 2.5 to 3.5. -See PT/INR trends above Coumadin as above - Patient's INR is difficult to maintain with the therapeutic range therefore we will give another 3 mg tonight and check INR tomorrow. Will try to convince the patient to get bloodwork done today. STOP Lovenox / Cough, acute mucomyst -Mucinex 600mg PO BID -01/28: cough intermittent -01/24 does not complain of cough -01/19-01/22: Persists. Non-productive. Continue Mucinex. -01/15: patient developed productive cough with yellow sputum today. CAD (coronary artery disease) Consulted Cardiology, Dr. Arguelles - f/u recs -Aware of HR in 140's and SOB after eating and low levels of exertion. -unknown graft status. no evidence of ischemia at present -No current angina History of [place] (myocardial infarction) Crestor 10mg PO HS resumed HOLD Crestor 10mg PO HS (last dose 01/18- due to elevated LFTs) ROMIs negative x3 EKG paced Denies chest pain Lower extremity edema LE Duplex - negative. see full report. Prophylactic measure Coumadin as above. protonix 40mg daily SCD contraindicated due to LE edema D/C when bed available <Johnnie Otoole Jr. - Last Filed: 02/20/17 16:56> Objective - Vital Signs/Intake and Output Vital Signs (last 24 hours): Temp Pulse Resp BP Pulse Ox 97.5 F L 74 20 99/61 L 99 02/20/17 15:41 02/20/17 15:41 02/20/17 15:41 02/20/17 15:41 02/20/17 15:41 Intake and Output: 02/20/17 02/20/17 06:59 18:59 Intake Total 760 Output Total 1100 Balance -340 - Medications Medications: Current Medications Acetylcysteine (Acetylcysteine 20%) 4 ml INH RQ4 [facility] Last Admin: 02/20/17 16:17 Dose: 4 ml Albuterol Sulfate (Albuterol 0.042% Inhal Laura (1.25mg/3ml) Ud) 1.25 mg INH RQ4 [facility] Last Admin: 02/20/17 16:17 Dose: 1.25 mg Benzocaine/Menthol (Cepacol Sore Throat) 1 sarah MT Q6H PRN PRN Reason: Sore Throat Last Admin: 02/15/17 09:32 Dose: 1 sarah Budesonide (Pulmicort Respules) 0.5 mg INH RQ12 [facility] Last Admin: 02/13/17 07:34 Dose: 0.5 mg Cefpodoxime Proxetil (Vantin) 200 mg PO Q12H [facility] Last Admin: 02/20/17 14:44 Dose: 200 mg Digoxin (Lanoxin) 0.25 mg PO DAILY@1800 [facility] Last Admin: 02/19/17 17:32 Dose: 0.25 mg Famotidine (Pepcid) 20 mg PO DAILY [facility] Last Admin: 02/20/17 11:19 Dose: 20 mg Guaifenesin (Mucinex La) 600 mg PO BID [facility] Last Admin: 02/20/17 11:19 Dose: 600 mg Ipratropium [place] (Atrovent) 0.5 mg IH RQ4 [facility] Last Admin: 02/20/17 16:17 Dose: 0.5 mg Lisinopril (Zestril) 2.5 mg PO DAILY [facility] Last Admin: 02/20/17 11:19 Dose: 2.5 mg Prednisone (Prednisone Tab) 20 mg PO DAILY [facility] Last Admin: 02/20/17 11:19 Dose: 20 mg Spironolactone (Aldactone) 25 mg PO DAILY [facility] Last Admin: 02/20/17 11:19 Dose: 25 mg - Labs Labs: 02/20/17 11:24 02/20/17 11:24 PT 19.9 SECONDS (9.7-12.2) H 02/20/17 11:24 INR 1.7 02/20/17 11:24 APTT 41 SECONDS (21-34) H 02/16/17 13:23 Attending/Attestation - Attestation I have personally seen and examined this patient.: Yes I have fully participated in the care of the patient.: Yes I have reviewed all pertinent clinical information, including history, physical exam and plan: Yes Notes (Text): 02/20/17 16:56 Patient seen and examined. Reviewed resident note and agree with Plan of Care and Findings
[2017-02-19] MEDS: Cefpodoxime (Vantin) 200 mg Tab PO SCH (15:45)
[2017-02-19] MEDS: Digoxin 250 mcg (0.25 mg) Tab PO SCH (17:32)
[2017-02-20] MEDS: Albuterol 0.042% Inhal Sol (1.25 mg/3 mL) UD INH SCH ×7 (01:46→23:51)
[2017-02-20] MEDS: Ipratropium 0.02% Inhal Soln (0.5 mg/2.5 ml) UD IH SCH ×7 (01:46→23:51)
[2017-02-20] MEDS: Acetylcysteine 20% Inhal Soln (4ml) INH SCH ×7 (01:46→23:51)
[2017-02-20] MEDS: Cefpodoxime (Vantin) 200 mg Tab PO SCH ×2 (02:02→14:44)
[2017-02-20] MEDS: guaiFENesin 600 mg ER Tab PO SCH ×2 (11:19→18:31)
[2017-02-20 11:40] LABS: INR 1.7
[2017-02-20 11:41] LABS: BASO % 0.3 % (0.0-2.0); EOS % 0.3 % (0.0-4.0); HEMATOCRIT 37.2 % (35.0-51.0); LYMPH % 12.7 % (20.0-40.0); MEAN CELL VOLUME 81.2 fL (80.0-94.0); MEAN CORPUSCULAR HEMOGLOBIN 26.1 pg (27.0-31.0); MEAN CORPUSCULAR HGB CONC 32.2 g/dL (33.0-37.0); MEAN PLATELET VOLUME 7.4 fL (7.2-11.7); MONO % 13.2 % (0.0-10.0); PLATELET COUNT 248 K/uL (130-400); RED CELL DISTRIBUTION WIDTH 18.2 % (11.5-14.5); WHITE BLOOD COUNT 7.7 K/uL (4.8-10.8)
[2017-02-20 12:05] LABS: CHLORIDE 98 mmol/L (98-107)
[2017-02-20 12:06] LABS: POTASSIUM 4.2 mmol/L (3.6-5.2); SODIUM 134 mmol/L (132-148)
[2017-02-20 12:07] LABS: GFR AFRICAN-AMERICAN > 60
[2017-02-20 12:08] LABS: ALB/GLOB RATIO 1.1 (1.0-2.1); ALKALINE PHOSPHATASE 55 U/L (38-126); ALT/SGPT 103 U/L (21-72); AST/SGOT 79 U/L (17-59); BILIRUBIN,TOTAL 0.4 mg/dL (0.2-1.3); BLOOD UREA NITROGEN 25 mg/dL (9-20); CARBON DIOXIDE 29 mmol/L (22-30); GLUCOSE,RANDOM 85 mg/dL (75-110); PHOSPHOROUS 2.9 mg/dL (2.5-4.5); TOTAL PROTEIN 5.7 g/dL (6.3-8.3)
[2017-02-20 12:09] LABS: CALCIUM 9.2 mg/dl (8.6-10.4); MAGNESIUM 2.1 mg/dL (1.6-2.3)
[2017-02-20 12:12] LABS: MYELOCYTE 2 % (0-0); NEUTROPHIL 66 % (50-75); TOTAL CELLS COUNTED 100
[2017-02-20] MEDS: Digoxin 250 mcg (0.25 mg) Tab PO SCH (18:31)
--- NOTE | 2017-02-20 23:15 | CP.PCM.PN ---
<James Lee - Last Filed: 02/20/17 23:11> Subjective - Date & Time of Evaluation Date of Evaluation: 02/20/17 Time of Evaluation: 07:52 - Subjective Subjective: Pt seen and examined. Pt still has complaints of shortness of breath and cough. Pt denies fever, chills, chest pain, nausea, and vomiting. Objective - Vital Signs/Intake and Output Vital Signs (last 24 hours): Temp Pulse Resp BP Pulse Ox 97.5 F L 74 20 99/61 L 99 02/20/17 15:41 02/20/17 16:00 02/20/17 15:41 02/20/17 15:41 02/20/17 15:41 - Medications Medications: Current Medications Acetylcysteine (Acetylcysteine 20%) 4 ml INH RQ4 [facility] Last Admin: 02/20/17 19:30 Dose: 4 ml Albuterol Sulfate (Albuterol 0.042% Inhal Laura (1.25mg/3ml) Ud) 1.25 mg INH RQ4 [facility] Last Admin: 02/20/17 19:30 Dose: 1.25 mg Benzocaine/Menthol (Cepacol Sore Throat) 1 sarah MT Q6H PRN PRN Reason: Sore Throat Last Admin: 02/15/17 09:32 Dose: 1 sarah Budesonide (Pulmicort Respules) 0.5 mg INH RQ12 [facility] Last Admin: 02/13/17 07:34 Dose: 0.5 mg Cefpodoxime Proxetil (Vantin) 200 mg PO Q12H [facility] Last Admin: 02/20/17 14:44 Dose: 200 mg Digoxin (Lanoxin) 0.25 mg PO DAILY@1800 [facility] Last Admin: 02/20/17 18:31 Dose: 0.25 mg Famotidine (Pepcid) 20 mg PO DAILY [facility] Last Admin: 02/20/17 11:19 Dose: 20 mg Guaifenesin (Mucinex La) 600 mg PO BID [facility] Last Admin: 02/20/17 18:31 Dose: 600 mg Ipratropium [place] (Atrovent) 0.5 mg IH RQ4 [facility] Last Admin: 02/20/17 19:30 Dose: 0.5 mg Lisinopril (Zestril) 2.5 mg PO DAILY [facility] Last Admin: 02/20/17 11:19 Dose: 2.5 mg Prednisone (Prednisone Tab) 20 mg PO DAILY [facility] Last Admin: 02/20/17 11:19 Dose: 20 mg Spironolactone (Aldactone) 25 mg PO DAILY [facility] Last Admin: 02/20/17 11:19 Dose: 25 mg - Labs Labs: 02/20/17 11:24 02/20/17 11:24 PT 19.9 SECONDS (9.7-12.2) H 02/20/17 11:24 INR 1.7 02/20/17 11:24 APTT 41 SECONDS (21-34) H 02/16/17 13:23 - Constitutional Appears: No Acute Distress - Head Exam Head Exam: ATRAUMATIC, NORMOCEPHALIC - Eye Exam Eye Exam: EOMI, PERRL - ENT Exam ENT Exam: Mucous Membranes Moist. absent: Mucous Membranes Dry - Neck Exam Neck Exam: Full ROM - Respiratory Exam Respiratory Exam: Rhonchi, Wheezes. absent: Clear to Ausculation Bilateral - Cardiovascular Exam Cardiovascular Exam: Gallop, +S1, +S2. absent: Rubs, Murmur - GI/Abdominal Exam GI & Abdominal Exam: Soft, Normal Bowel Sounds. absent: Distended, Tenderness - Extremities Exam Extremities Exam: Full ROM. absent: Pedal Edema - Neurological Exam Neurological Exam: Alert, Awake, Oriented x3 - Psychiatric Exam Psychiatric exam: Normal Affect, Normal Mood - Skin Skin Exam: Normal Color, Warm Assessment and Plan - Assessment and Plan (Free Text) Assessment: 02/20/17: Pt pending discharge to [facility] once confirms pt's address and permanent residence. Pt not clear for discharge until is contacted. [facility] has been unable to contact thus far. Pt is medically stable for discharge to [facility]. Pt receiving daily coumadin 3 mg. Pt's INR 1.7 today. Will continue giving coumadin. On Vantin, as per ID, Dr. Parra. Shortness of breath - secondary to chronic COPD vs pneumonia (hospital acquired) - Cefepime, Vanc and Cipro started (02/13) - Have not been able to get vanc trough because patient refusing blood work - ID consulted (Fidel) help appreciated - f/u recs - Blood and sputum Cxs (02/13) f/u - CXR 02/11 - New opacity at right lung base suspicious for pneumonia. Questionable opacity at left base. Mild congestive change. - CT Chest HR 02/05 - No definite CT evidence of interstitial lung disease. Cardiomegaly and qyuw-ok-ysmekubv pulmonary vascular congestion. Interval appearance of new round opacities/ nodules in the right upper lobe and left lower lobe since the previous study. The differential diagnosis includes multifocal pneumonia. The possibility of neoplasm is not totally excluded. Follow-up reassessment is recommended. Otherwise no significant interval change since the previous study dated 01/22/2017. COPD (chronic obstructive pulmonary disease) Exacerbation 02/13: Duonebs every 4 hours for SOB 02/11: Added mucomyst to breathing treatments. Will get repeat CXR 02/05: CT chest with high resolution - see above 02/01: Prednisone 40mg PO daily; Taper on discharge. Will require home oxygen. 01/29: Stop Solumedrol IVP; Start Prednisone 40mg PO daily; Taper on discharge. Will require home oxygen. -01/28: Solumedrol reduced to 40mg IVP Q12H. Prior to discharge, change Solumedrol -> Prednisone -01/19-01/28: Continue BIPAP, patient more compliant (sometimes refuses despite being SOB). -01/16: RAPID called due to SOB. BP 80/50's. Bolused 500cc NS. Ordered BIPAP and ABG, however patient refused. Placed back on NC 3L. -01/14-01/15: Patient complaining of SOB with exertion and orthopnea. Maintain Head of bed elevated 30 degrees. -01/13: PT session: 98% O2 at 2L at rest, 96% room air at rest sitting, 82% room air during ambulation, 88% at 2 liter ambulation. -01/12: Walked 20 steps today down bruno, and patient became dizzy, SOB, and almost collapsed. - Consulted Pulmonology, Dr. Cobb, f/u recs -planning for home O2 - Aware of HR in 140's and SOB after eating and low levels of exertion. -LDH 654H -HIV - negative -persistent shortness of breath - Patient with long history of smoking most likely has underlying COPD. Nebulizer treatment. Inhaled steroids. Spiriva. PFT as out pt Systolic dysfunction with acute on chronic heart failure - 02/11: dig level low, increase to 0.25 - EF 10-15%, mechanical MV- no regurg, tricuspid regurg. see full report -Chest CT 01/22 - Cardiomegaly. Cardiac valve prosthesis. Left-sided AICD. Dense coronary artery calcifications. -Small consolidation (favored to reflect atelectasis rather than pneumonia) at the left lung base. -Bibasilar atelectasis. Small airways disease. Mild ground-glass and fine nodular opacities within the right upper lobe, possibly infectious or inflammatory. -7 mm left upper lobe pulmonary nodule. Guidelines by the Fleischner society (radiology 2005; 237:390 5-400) suggests that in patients with low risk for lung cancer, with nodules less than or equal to 8 mm in diameter should have follow-up in approximately 6-12 months. In patients with high-risk, including smokers, follow-up is recommended 3-6 months. Patient with a known malignancy for risk for metastases should receive 3 month follow-up. -Hepatic capsular calcification. -Numerous low-density lesions throughout the liver, possibly cysts. Decompressed gallbladder limits evaluation. Bilateral hypodense renal lesions. Right adrenal gland hypertrophy. 12 mm left adrenal gland nodule measures approximately 9 Hounsfield units, likely adenoma. -Consulted Cardiology, Dr. Arguelles - f/u recs -01/22: Lasix 40mg IVP daily, Spironolactone 25mg daily. CXR - no interval pathology change. -01/19: HOLD LASIX FOR 1 TO 2 DAYS AND CONT MUCINEX. PT PRERENAL AND APPEARS DRY. ON BOTH LASIX AND SPIRONOLACTONE. -SOB APPEARS TO BE SECONDARY TO PULM ETIOLOGY. IMPROVES WITH NEBS. PT WITH RHONCHI B/L. MAY BENEFIT FROM PULM TOILET. -will attempt to obtain company of [facility] for interrogation. -likely deconditioned. will benefit from rehab -01/16: RAPID called due to SOB. BP 80/50's. Bolused 500cc NS. Ordered BIPAP and ABG, however patient refused. Placed back on NC 3L. ProBNP 4070H (less than # on admission) and KACY negative. -01/16: Decrease to Lasix 40mg PO daily (was BID). Admit to telemetry, BNP 4560 on admission Lisinopril 10mg daily Aldactone 25mg PO Daily patient with AICD, will check echo to determine EF CXR 01/03: mild cardiomegaly, mild pulmonary venous congestion. s/p sternotomy, aortic valve replacement, AICD H/O mitral valve replacement with mechanical valve Monitor INR and adjust Coumadin as necessary Cardiac valve replacement 6-7yrs ago Consulted Cardiology, Dr. Arguelles - f/u recs -echocardiogram reviewed. valve leaflets are opening and functional. There is no signficant gradient across the valve. -recommend INR 2.5 to 3.5. STOP Lovenox 3/5 STOP Heparin Drip - cardiac protocol, with bolus (because patient is refusing blood draws) Chronic atrial fibrillation Consulted Cardiology, Dr. Arguelles - f/u recs -Rate controlled -echocardiogram reviewed. valve leaflets are opening and functional. There is no significant gradient across the valve. -recommend INR 2.5 to 3.5. -See PT/INR trends above Coumadin as above - Patient's INR is difficult to maintain with the therapeutic range therefore we will give another 3 mg tonight and check INR tomorrow. Will try to convince the patient to get bloodwork done today. STOP Lovenox 3/ Cough, acute mucomyst -Mucinex 600mg PO BID -01/28: cough intermittent -01/24 does not complain of cough -01/19-01/22: Persists. Non-productive. Continue Mucinex. -01/15: patient developed productive cough with yellow sputum today. CAD (coronary artery disease) Consulted Cardiology, Dr. Arguelles - f/u recs -Aware of HR in 140's and SOB after eating and low levels of exertion. -unknown graft status. no evidence of ischemia at present -No current angina History of [place] (myocardial infarction) Crestor 10mg PO HS resumed HOLD Crestor 10mg PO HS (last dose 01/18- due to elevated LFTs) ROMIs negative x3 EKG paced Denies chest pain Lower extremity edema LE Duplex - negative. see full report. Prophylactic measure Coumadin as above. protonix 40mg daily SCD contraindicated due to LE edema D/C when bed available <Johnnie Otoole Jr. - Last Filed: 03/08/17 13:39> Objective - Vital Signs/Intake and Output Vital Signs (last 24 hours): Temp Pulse Resp BP Pulse Ox 97.4 F L 97 H 20 100/62 96 02/26/17 15:22 02/26/17 16:00 02/26/17 15:22 02/26/17 15:22 02/26/17 15:22 - Labs Labs: 02/23/17 10:58 02/23/17 10:58 PT 12.4 SECONDS (9.7-12.2) H D 02/25/17 16:50 INR 1.1 D 02/25/17 16:50 APTT 30 SECONDS (21-34) 02/23/17 10:58 Attending/Attestation - Attestation I have personally seen and examined this patient.: Yes I have fully participated in the care of the patient.: Yes I have reviewed all pertinent clinical information, including history, physical exam and plan: Yes Notes (Text): 03/08/17 13:38 Agree with resident note and findings
--- NOTE | 2017-02-21 00:02 | CP.PCM.PN ---
<SamanthaCitlalli - Last Filed: 02/20/17 23:59> Subjective - Date & Time of Evaluation Date of Evaluation: 02/21/17 Time of Evaluation: 00:00 - Subjective Subjective: Pt seen and examined. Pt complains of cough. Pt denies fever, chills, chest pain , nausea, and vomiting. Objective - Vital Signs/Intake and Output Vital Signs (last 24 hours): Temp Pulse Resp BP Pulse Ox 97.5 F L 74 20 99/61 L 99 02/20/17 15:41 02/20/17 16:00 02/20/17 15:41 02/20/17 15:41 02/20/17 15:41 - Medications Medications: Current Medications Acetylcysteine (Acetylcysteine 20%) 4 ml INH RQ4 [facility] Last Admin: 02/20/17 23:51 Dose: Not Given Albuterol Sulfate (Albuterol 0.042% Inhal Laura (1.25mg/3ml) Ud) 1.25 mg INH RQ4 [facility] Last Admin: 02/20/17 23:51 Dose: Not Given Benzocaine/Menthol (Cepacol Sore Throat) 1 sarah MT Q6H PRN PRN Reason: Sore Throat Last Admin: 02/15/17 09:32 Dose: 1 sarah Budesonide (Pulmicort Respules) 0.5 mg INH RQ12 [facility] Last Admin: 02/13/17 07:34 Dose: 0.5 mg Cefpodoxime Proxetil (Vantin) 200 mg PO Q12H [facility] Last Admin: 02/20/17 14:44 Dose: 200 mg Digoxin (Lanoxin) 0.25 mg PO DAILY@1800 [facility] Last Admin: 02/20/17 18:31 Dose: 0.25 mg Famotidine (Pepcid) 20 mg PO DAILY [facility] Last Admin: 02/20/17 11:19 Dose: 20 mg Guaifenesin (Mucinex La) 600 mg PO BID [facility] Last Admin: 02/20/17 18:31 Dose: 600 mg Ipratropium [place] (Atrovent) 0.5 mg IH RQ4 [facility] Last Admin: 02/20/17 23:51 Dose: Not Given Lisinopril (Zestril) 2.5 mg PO DAILY [facility] Last Admin: 02/20/17 11:19 Dose: 2.5 mg Prednisone (Prednisone Tab) 20 mg PO DAILY [facility] Last Admin: 02/20/17 11:19 Dose: 20 mg Spironolactone (Aldactone) 25 mg PO DAILY [facility] Last Admin: 02/20/17 11:19 Dose: 25 mg - Labs Labs: 02/20/17 11:24 02/20/17 11:24 PT 19.9 SECONDS (9.7-12.2) H 02/20/17 11:24 INR 1.7 02/20/17 11:24 APTT 41 SECONDS (21-34) H 02/16/17 13:23 - Constitutional Appears: No Acute Distress - Head Exam Head Exam: ATRAUMATIC, NORMAL INSPECTION, NORMOCEPHALIC - Eye Exam Eye Exam: EOMI, PERRL - ENT Exam ENT Exam: Mucous Membranes Moist - Neck Exam Neck Exam: Full ROM - Respiratory Exam Respiratory Exam: Rhonchi, Wheezes - Cardiovascular Exam Cardiovascular Exam: +S1, +S2. absent: Murmur - GI/Abdominal Exam GI & Abdominal Exam: Soft, Normal Bowel Sounds. absent: Tenderness - Extremities Exam Extremities Exam: Normal Inspection. absent: Pedal Edema, Tenderness - Neurological Exam Neurological Exam: Alert, Awake, Oriented x3 - Psychiatric Exam Psychiatric exam: Normal Affect, Normal Mood - Skin Skin Exam: Intact, Normal Color Assessment and Plan - Assessment and Plan (Free Text) Assessment: Shortness of breath - secondary to chronic COPD vs pneumonia (hospital acquired) - Cefepime, Vanc and Cipro started (02/13) - Have not been able to get vanc trough because patient refusing blood work - ID consulted (Fidel) help appreciated - f/u recs - Blood and sputum Cxs (02/13) f/u - CXR 02/11 - New opacity at right lung base suspicious for pneumonia. Questionable opacity at left base. Mild congestive change. - CT Chest HR 02/05 - No definite CT evidence of interstitial lung disease. Cardiomegaly and [id number] pulmonary vascular congestion. Interval appearance of new round opacities/ nodules in the right upper lobe and left lower lobe since the previous study. The differential diagnosis includes multifocal pneumonia. The possibility of neoplasm is not totally excluded. Follow-up reassessment is recommended. Otherwise no significant interval change since the previous study dated 01/22/2017. COPD (chronic obstructive pulmonary disease) Exacerbation 02/13: Duonebs every 4 hours for SOB 02/11: Added mucomyst to breathing treatments. Will get repeat CXR 02/05: CT chest with high resolution - see above 02/01: Prednisone 40mg PO daily; Taper on discharge. Will require home oxygen. 01/29: Stop Solumedrol IVP; Start Prednisone 40mg PO daily; Taper on discharge. Will require home oxygen. -01/28: Solumedrol reduced to 40mg IVP Q12H. Prior to discharge, change Solumedrol -> Prednisone -01/19-01/28: Continue BIPAP, patient more compliant (sometimes refuses despite being SOB). -01/16: RAPID called due to SOB. BP 80/50's. Bolused 500cc NS. Ordered BIPAP and ABG, however patient refused. Placed back on NC 3L. -01/14-01/15: Patient complaining of SOB with exertion and orthopnea. Maintain Head of bed elevated 30 degrees. -01/13: PT session: 98% O2 at 2L at rest, 96% room air at rest sitting, 82% room air during ambulation, 88% at 2 liter ambulation. -01/12: Walked 20 steps today down bruno, and patient became dizzy, SOB, and almost collapsed. - Consulted Pulmonology, Dr. Cobb, f/u recs -planning for home O2 - Aware of HR in 140's and SOB after eating and low levels of exertion. -LDH 654H -HIV - negative -persistent shortness of breath - Patient with long history of smoking most likely has underlying COPD. Nebulizer treatment. Inhaled steroids. Spiriva. PFT as out pt Systolic dysfunction with acute on chronic heart failure - 02/11: dig level low, increase to 0.25 - EF 10-15%, mechanical MV- no regurg, tricuspid regurg. see full report -Chest CT 01/22 - Cardiomegaly. Cardiac valve prosthesis. Left-sided AICD. Dense coronary artery calcifications. -Small consolidation (favored to reflect atelectasis rather than pneumonia) at the left lung base. -Bibasilar atelectasis. Small airways disease. Mild ground-glass and fine nodular opacities within the right upper lobe, possibly infectious or inflammatory. -7 mm left upper lobe pulmonary nodule. Guidelines by the Fleischner society (radiology 2005; 237:390 5-400) suggests that in patients with low risk for lung cancer, with nodules less than or equal to 8 mm in diameter should have follow-up in approximately 6-12 months. In patients with high-risk, including smokers, follow-up is recommended 3-6 months. Patient with a known malignancy for risk for metastases should receive 3 month follow-up. -Hepatic capsular calcification. -Numerous low-density lesions throughout the liver, possibly cysts. Decompressed gallbladder limits evaluation. Bilateral hypodense renal lesions. Right adrenal gland hypertrophy. 12 mm left adrenal gland nodule measures approximately 9 Hounsfield units, likely adenoma. -Consulted Cardiology, Dr. Arguelles - f/u recs -01/22: Lasix 40mg IVP daily, Spironolactone 25mg daily. CXR - no interval pathology change. -01/19: HOLD LASIX FOR 1 TO 2 DAYS AND CONT MUCINEX. PT PRERENAL AND APPEARS DRY. ON BOTH LASIX AND SPIRONOLACTONE. -SOB APPEARS TO BE SECONDARY TO PULM ETIOLOGY. IMPROVES WITH NEBS. PT WITH RHONCHI B/L. MAY BENEFIT FROM PULM TOILET. -will attempt to obtain company of [facility] for interrogation. -likely deconditioned. will benefit from rehab -01/16: RAPID called due to SOB. BP 80/50's. Bolused 500cc NS. Ordered BIPAP and ABG, however patient refused. Placed back on NC 3L. ProBNP 4070H (less than # on admission) and KACY negative. -01/16: Decrease to Lasix 40mg PO daily (was BID). Admit to telemetry, BNP 4560 on admission Lisinopril 10mg daily Aldactone 25mg PO Daily patient with AICD, will check echo to determine EF CXR 01/03: mild cardiomegaly, mild pulmonary venous congestion. s/p sternotomy, aortic valve replacement, AICD H/O mitral valve replacement with mechanical valve Coumadin 3 mg po today. Check INR Monitor INR and adjust Coumadin as necessary Cardiac valve replacement 6-7yrs ago Consulted Cardiology, Dr. Arguelles - f/u recs -echocardiogram reviewed. valve leaflets are opening and functional. There is no signficant gradient across the valve. -recommend INR 2.5 to 3.5. STOP Lovenox 3/5 STOP Heparin Drip - cardiac protocol, with bolus (because patient is refusing blood draws) Chronic atrial fibrillation Consulted Cardiology, Dr. Arguelles - f/u recs -Rate controlled -echocardiogram reviewed. valve leaflets are opening and functional. There is no significant gradient across the valve. -recommend INR 2.5 to 3.5. -See PT/INR trends above Coumadin as above - Patient's INR is difficult to maintain with the therapeutic range therefore we will give another 3 mg tonight and check INR tomorrow. Will try to convince the patient to get bloodwork done today. STOP Lovenox 01/11 Cough, acute mucomyst -Mucinex 600mg PO BID -01/28: cough intermittent -01/24 does not complain of cough -01/19-01/22: Persists. Non-productive. Continue Mucinex. -01/15: patient developed productive cough with yellow sputum today. CAD (coronary artery disease) Consulted Cardiology, Dr. Arguleles - f/u recs -Aware of HR in 140's and SOB after eating and low levels of exertion. -unknown graft status. no evidence of ischemia at present -No current angina History of [place] (myocardial infarction) Crestor 10mg PO HS resumed HOLD Crestor 10mg PO HS (last dose 01/18- due to elevated LFTs) ROMIs negative x3 EKG paced Denies chest pain Lower extremity edema LE Duplex - negative. see full report. Prophylactic measure Coumadin as above. protonix 40mg daily SCD contraindicated due to LE edema D/C when bed available <Johnnie Otoole Jr. - Last Filed: 03/08/17 13:40> Objective - Vital Signs/Intake and Output Vital Signs (last 24 hours): Temp Pulse Resp BP Pulse Ox 97.4 F L 97 H 20 100/62 96 02/26/17 15:22 02/26/17 16:00 02/26/17 15:22 02/26/17 15:22 02/26/17 15:22 - Labs Labs: 02/23/17 10:58 02/23/17 10:58 PT 12.4 SECONDS (9.7-12.2) H D 02/25/17 16:50 INR 1.1 D 02/25/17 16:50 APTT 30 SECONDS (21-34) 04/17/17 10:58 Attending/Attestation - Attestation I have personally seen and examined this patient.: Yes I have fully participated in the care of the patient.: Yes I have reviewed all pertinent clinical information, including history, physical exam and plan: Yes Notes (Text): 03/08/17 13:40 Agree with findings and plan
[2017-02-21] MEDS: Cefpodoxime (Vantin) 200 mg Tab PO SCH ×2 (03:00→14:21)
[2017-02-21] MEDS: Acetylcysteine 20% Inhal Soln (4ml) INH SCH ×5 (04:19→19:11)
[2017-02-21] MEDS: Albuterol 0.042% Inhal Sol (1.25 mg/3 mL) UD INH SCH ×3 (04:20→19:11)
[2017-02-21] MEDS: Ipratropium 0.02% Inhal Soln (0.5 mg/2.5 ml) UD IH SCH ×4 (04:20→19:12)
[2017-02-21] MEDS: guaiFENesin 600 mg ER Tab PO SCH ×2 (09:49→18:20)
[2017-02-21] MEDS: Benzocaine/Menthol (Cepacol) Lozenge MT PRN (09:49)
[2017-02-21 17:46] LABS: INR 1.8
[2017-02-21] MEDS: Digoxin 250 mcg (0.25 mg) Tab PO SCH (18:18)
[2017-02-22] MEDS: Albuterol 0.042% Inhal Sol (1.25 mg/3 mL) UD INH SCH ×6 (00:41→21:12)
[2017-02-22] MEDS: Ipratropium 0.02% Inhal Soln (0.5 mg/2.5 ml) UD IH SCH ×6 (00:41→21:12)
[2017-02-22] MEDS: Acetylcysteine 20% Inhal Soln (4ml) INH SCH ×6 (00:41→21:12)
[2017-02-22] MEDS: Cefpodoxime (Vantin) 200 mg Tab PO SCH ×2 (02:45→15:01)
--- NOTE | 2017-02-22 08:57 | CP.PCM.PN ---
<Fabienne Nelson I - Last Filed: 02/22/17 09:11> Subjective - Date & Time of Evaluation Date of Evaluation: 02/22/17 Time of Evaluation: 08:40 - Subjective Subjective: PGY3 on Medicine Service Patient seen and examined at bedside. States that he feels, "so-so". Denies chest pain, worsening SOB, headache, dizziness, fevers, chills, abdominal pain, nausea, vomiting or difficulty ambulating or tolerating diet. Objective - Vital Signs/Intake and Output Vital Signs (last 24 hours): Temp Pulse Resp BP Pulse Ox 97.5 F L 62 20 134/62 98 02/22/17 08:39 02/22/17 08:39 02/22/17 08:39 02/21/17 23:35 02/22/17 08:39 Intake and Output: 02/22/17 02/22/17 06:59 18:59 Output Total 800 Balance -800 - Medications Medications: Current Medications Acetylcysteine (Acetylcysteine 20%) 4 ml INH RQ4 [facility] Last Admin: 02/22/17 03:14 Dose: Not Given Albuterol Sulfate (Albuterol 0.042% Inhal Laura (1.25mg/3ml) Ud) 1.25 mg INH RQ4 [facility] Last Admin: 02/22/17 03:14 Dose: Not Given Benzocaine/Menthol (Cepacol Sore Throat) 1 sarah MT Q6H PRN PRN Reason: Sore Throat Last Admin: 02/21/17 09:49 Dose: 1 sarah Budesonide (Pulmicort Respules) 0.5 mg INH RQ12 [facility] Last Admin: 02/13/17 07:34 Dose: 0.5 mg Cefpodoxime Proxetil (Vantin) 200 mg PO Q12H [facility] Last Admin: 02/21/17 14:21 Dose: 200 mg Digoxin (Lanoxin) 0.25 mg PO DAILY@1800 [facility] Last Admin: 02/21/17 18:18 Dose: 0.25 mg Famotidine (Pepcid) 20 mg PO DAILY [facility] Last Admin: 02/21/17 09:49 Dose: 20 mg Guaifenesin (Mucinex La) 600 mg PO BID [facility] Last Admin: 02/21/17 18:20 Dose: 600 mg Ipratropium [place] (Atrovent) 0.5 mg IH RQ4 [facility] Last Admin: 02/22/17 03:15 Dose: Not Given Lisinopril (Zestril) 2.5 mg PO DAILY [facility] Last Admin: 02/21/17 09:49 Dose: 2.5 mg Prednisone (Prednisone Tab) 20 mg PO DAILY [facility] Last Admin: 02/21/17 09:49 Dose: 20 mg Spironolactone (Aldactone) 25 mg PO DAILY [facility] Last Admin: 02/21/17 09:49 Dose: 25 mg - Labs Labs: 02/20/17 11:24 02/20/17 11:24 PT 20.2 SECONDS (9.7-12.2) H 02/21/17 17:31 INR 1.8 02/21/17 17:31 APTT 41 SECONDS (21-34) H 02/16/17 13:23 - Constitutional Appears: Chronically Ill - Head Exam Head Exam: ATRAUMATIC, NORMAL INSPECTION, NORMOCEPHALIC - Eye Exam Eye Exam: Normal appearance - ENT Exam ENT Exam: Mucous Membranes Moist - Respiratory Exam Respiratory Exam: Decreased Breath Sounds, Prolonged Expiratory Phase, Rales. absent: Accessory Muscle Use, Chest Wall Tenderness, Respiratory Distress - Cardiovascular Exam Cardiovascular Exam: REGULAR RHYTHM, RRR, +S1, +S2 - GI/Abdominal Exam GI & Abdominal Exam: Soft, Normal Bowel Sounds. absent: Tenderness - Extremities Exam Extremities Exam: Normal Inspection. absent: Pedal Edema - Neurological Exam Neurological Exam: Alert, Oriented x3 - Psychiatric Exam Psychiatric exam: Normal Affect, Normal Mood - Skin Skin Exam: Dry, Normal Color, Warm Assessment and Plan - Assessment and Plan (Free Text) Assessment: Shortness of breath - secondary to chronic COPD vs pneumonia (hospital acquired) - Cefepime, Vanc and Cipro started (02/13) - Have not been able to get vanc trough because patient refusing blood work - ID consulted (Fidel) help appreciated - f/u recs - Blood and sputum Cxs (02/13) f/u - CXR 02/11 - New opacity at right lung base suspicious for pneumonia. Questionable opacity at left base. Mild congestive change. - CT Chest HR 02/05 - No definite CT evidence of interstitial lung disease. Cardiomegaly and [id number] pulmonary vascular congestion. Interval appearance of new round opacities/ nodules in the right upper lobe and left lower lobe since the previous study. The differential diagnosis includes multifocal pneumonia. The possibility of neoplasm is not totally excluded. Follow-up reassessment is recommended. Otherwise no significant interval change since the previous study dated 01/22/2017. COPD (chronic obstructive pulmonary disease) Exacerbation 02/13: Duonebs every 4 hours for SOB 02/11: Added mucomyst to breathing treatments. Will get repeat CXR 02/05: CT chest with high resolution - see above 02/01: Prednisone 40mg PO daily; Taper on discharge. Will require home oxygen. 01/29: Stop Solumedrol IVP; Start Prednisone 40mg PO daily; Taper on discharge. Will require home oxygen. -01/28: Solumedrol reduced to 40mg IVP Q12H. Prior to discharge, change Solumedrol -> Prednisone -01/19-01/28: Continue BIPAP, patient more compliant (sometimes refuses despite being SOB). -01/16: RAPID called due to SOB. BP 80/50's. Bolused 500cc NS. Ordered BIPAP and ABG, however patient refused. Placed back on NC 3L. -01/14-01/15: Patient complaining of SOB with exertion and orthopnea. Maintain Head of bed elevated 30 degrees. -01/13: PT session: 98% O2 at 2L at rest, 96% room air at rest sitting, 82% room air during ambulation, 88% at 2 liter ambulation. -01/12: Walked 20 steps today down bruno, and patient became dizzy, SOB, and almost collapsed. - Consulted Pulmonology, Dr. Cobb, f/u recs -planning for home O2 - Aware of HR in 140's and SOB after eating and low levels of exertion. -LDH 654H -HIV - negative -persistent shortness of breath - Patient with long history of smoking most likely has underlying COPD. Nebulizer treatment. Inhaled steroids. Spiriva. PFT as out pt Systolic dysfunction with acute on chronic heart failure - 02/11: dig level low, increase to 0.25 - EF 10-15%, mechanical MV- no regurg, tricuspid regurg. see full report -Chest CT 01/22 - Cardiomegaly. Cardiac valve prosthesis. Left-sided AICD. Dense coronary artery calcifications. -Small consolidation (favored to reflect atelectasis rather than pneumonia) at the left lung base. -Bibasilar atelectasis. Small airways disease. Mild ground-glass and fine nodular opacities within the right upper lobe, possibly infectious or inflammatory. -7 mm left upper lobe pulmonary nodule. Guidelines by the Fleischner society (radiology 2005; 237:390 5-400) suggests that in patients with low risk for lung cancer, with nodules less than or equal to 8 mm in diameter should have follow-up in approximately 6-12 months. In patients with high-risk, including smokers, follow-up is recommended 3-6 months. Patient with a known malignancy for risk for metastases should receive 3 month follow-up. -Hepatic capsular calcification. -Numerous low-density lesions throughout the liver, possibly cysts. Decompressed gallbladder limits evaluation. Bilateral hypodense renal lesions. Right adrenal gland hypertrophy. 12 mm left adrenal gland nodule measures approximately 9 Hounsfield units, likely adenoma. -Consulted Cardiology, Dr. Arguelles - f/u recs -01/22: Lasix 40mg IVP daily, Spironolactone 25mg daily. CXR - no interval pathology change. -01/19: HOLD LASIX FOR 1 TO 2 DAYS AND CONT MUCINEX. PT PRERENAL AND APPEARS DRY. ON BOTH LASIX AND SPIRONOLACTONE. -SOB APPEARS TO BE SECONDARY TO PULM ETIOLOGY. IMPROVES WITH NEBS. PT WITH RHONCHI B/L. MAY BENEFIT FROM PULM TOILET. -will attempt to obtain company of [facility] for interrogation. -likely deconditioned. will benefit from rehab -01/16: RAPID called due to SOB. BP 80/50's. Bolused 500cc NS. Ordered BIPAP and ABG, however patient refused. Placed back on NC 3L. ProBNP 4070H (less than # on admission) and KACY negative. -01/16: Decrease to Lasix 40mg PO daily (was BID). Admit to telemetry, BNP 4560 on admission Lisinopril 10mg daily Aldactone 25mg PO Daily patient with AICD, will check echo to determine EF CXR 01/03: mild cardiomegaly, mild pulmonary venous congestion. s/p sternotomy, aortic valve replacement, AICD H/O mitral valve replacement with mechanical valve Coumadin 3 mg po today. Check INR Monitor INR and adjust Coumadin as necessary Cardiac valve replacement 6-7yrs ago Consulted Cardiology, Dr. Arguelles - f/u recs -echocardiogram reviewed. valve leaflets are opening and functional. There is no signficant gradient across the valve. -recommend INR 2.5 to 3.5. STOP Lovenox 3/5 STOP Heparin Drip - cardiac protocol, with bolus (because patient is refusing blood draws) Chronic atrial fibrillation Consulted Cardiology, Dr. Arguelles - f/u recs -Rate controlled -echocardiogram reviewed. valve leaflets are opening and functional. There is no significant gradient across the valve. -recommend INR 2.5 to 3.5. -See PT/INR trends above Coumadin as above - Patient's INR is difficult to maintain with the therapeutic range therefore we will give another 3 mg tonight and check INR tomorrow. Will try to convince the patient to get bloodwork done today. STOP Lovenox 3/5 Cough, acute mucomyst -Mucinex 600mg PO BID -01/28: cough intermittent -01/24 does not complain of cough -01/19-01/22: Persists. Non-productive. Continue Mucinex. -01/15: patient developed productive cough with yellow sputum today. CAD (coronary artery disease) Consulted Cardiology, Dr. Arguelles - f/u recs -Aware of HR in 140's and SOB after eating and low levels of exertion. -unknown graft status. no evidence of ischemia at present -No current angina History of [place] (myocardial infarction) Crestor 10mg PO HS resumed HOLD Crestor 10mg PO HS (last dose 01/18- due to elevated LFTs) ROMIs negative x3 EKG paced Denies chest pain Lower extremity edema LE Duplex - negative. see full report. Prophylactic measure Coumadin as above. protonix 40mg daily SCD contraindicated due to LE edema D/C when bed available <Johnnie Otoole Jr. - Last Filed: 03/08/17 13:42> Objective - Vital Signs/Intake and Output Vital Signs (last 24 hours): Temp Pulse Resp BP Pulse Ox 97.4 F L 97 H 20 100/62 96 02/26/17 15:22 02/26/17 16:00 02/26/17 15:22 02/26/17 15:22 02/26/17 15:22 - Labs Labs: 02/23/17 10:58 02/23/17 10:58 PT 12.4 SECONDS (9.7-12.2) H D 02/25/17 16:50 INR 1.1 D 02/25/17 16:50 APTT 30 SECONDS (21-34) 02/23/17 10:58 Attending/Attestation - Attestation I have personally seen and examined this patient.: Yes I have fully participated in the care of the patient.: Yes I have reviewed all pertinent clinical information, including history, physical exam and plan: Yes Notes (Text): 03/08/17 13:42 Agree with findings and plan
[2017-02-22] MEDS: Benzocaine/Menthol (Cepacol) Lozenge MT PRN (09:09)
[2017-02-22] MEDS: guaiFENesin 600 mg ER Tab PO SCH ×2 (09:09→17:25)
[2017-02-22] MEDS: Digoxin 250 mcg (0.25 mg) Tab PO SCH (17:25)
[2017-02-22 20:04] LABS: INR 1.8
[2017-02-23] MEDS: Ipratropium 0.02% Inhal Soln (0.5 mg/2.5 ml) UD IH SCH ×5 (01:15→19:11)
[2017-02-23] MEDS: Acetylcysteine 20% Inhal Soln (4ml) INH SCH ×6 (01:15→19:13)
[2017-02-23] MEDS: Albuterol 0.042% Inhal Sol (1.25 mg/3 mL) UD INH SCH ×3 (01:15→08:34)
[2017-02-23] MEDS: Cefpodoxime (Vantin) 200 mg Tab PO SCH ×2 (02:24→14:10)
[2017-02-23] MEDS: guaiFENesin 600 mg ER Tab PO SCH ×2 (09:21→18:35)
[2017-02-23 11:12] LABS: BASO % 0.4 % (0.0-2.0); EOS % 0.2 % (0.0-4.0); HEMATOCRIT 38.9 % (35.0-51.0); LYMPH # 0.9 K/uL (1.0-4.3); MEAN CORPUSCULAR HGB CONC 32.1 g/dL (33.0-37.0); MEAN PLATELET VOLUME 7.4 fL (7.2-11.7); MONO # 1.2 K/uL (0.0-0.8); MONO % 15.8 % (0.0-10.0); RED CELL DISTRIBUTION WIDTH 18.1 % (11.5-14.5); WHITE BLOOD COUNT 7.8 K/uL (4.8-10.8)
[2017-02-23 11:20] LABS: CHLORIDE 97 mmol/L (98-107)
[2017-02-23 11:21] LABS: POTASSIUM 4.5 mmol/L (3.6-5.2); SODIUM 133 mmol/L (132-148)
[2017-02-23 11:23] LABS: ALB/GLOB RATIO 1.2 (1.0-2.1); AST/SGOT 49 U/L (17-59); BILIRUBIN,TOTAL 0.5 mg/dL (0.2-1.3); BLOOD UREA NITROGEN 23 mg/dL (9-20); CARBON DIOXIDE 31 mmol/L (22-30); GFR AFRICAN-AMERICAN > 60; TOTAL PROTEIN 5.9 g/dL (6.3-8.3)
[2017-02-23 11:24] LABS: ALKALINE PHOSPHATASE 55 U/L (38-126); ALT/SGPT 82 U/L (21-72); CALCIUM 9.3 mg/dl (8.6-10.4); GLUCOSE,RANDOM 85 mg/dL (75-110)
--- NOTE | 2017-02-23 17:40 | CP.PCM.PN ---
<James Lee - Last Filed: 02/23/17 17:30> Subjective - Date & Time of Evaluation Date of Evaluation: 02/23/17 Time of Evaluation: 07:24 - Subjective Subjective: Pt seen and examined. Pt complaining of shortness of breath. Pt reports that he gets very short of breath and light headed upon ambulation to the restroom. Pt denies fever, chills, chest pain, nausea, and vomiting. Objective - Vital Signs/Intake and Output Vital Signs (last 24 hours): Temp Pulse Resp BP Pulse Ox 97.8 F 70 20 95/60 L 99 02/23/17 07:45 02/23/17 08:00 02/23/17 07:45 02/23/17 07:45 02/23/17 07:45 Intake and Output: 02/23/17 02/23/17 06:59 18:59 Output Total 650 Balance -650 - Medications Medications: Current Medications Acetylcysteine (Acetylcysteine 20%) 4 ml INH RQ4 [facility] Last Admin: 02/23/17 15:42 Dose: 4 ml Benzocaine/Menthol (Cepacol Sore Throat) 1 sarah MT Q6H PRN PRN Reason: Sore Throat Last Admin: 02/22/17 09:09 Dose: 1 sarah Budesonide (Pulmicort Respules) 0.5 mg INH RQ12 [facility] Last Admin: 02/13/17 07:34 Dose: 0.5 mg Cefpodoxime Proxetil (Vantin) 200 mg PO Q12H [facility] Last Admin: 02/23/17 14:10 Dose: 200 mg Digoxin (Lanoxin) 0.25 mg PO DAILY@1800 [facility] Last Admin: 02/22/17 17:25 Dose: 0.25 mg Famotidine (Pepcid) 20 mg PO DAILY [facility] Last Admin: 02/23/17 09:18 Dose: 20 mg Guaifenesin (Mucinex La) 600 mg PO BID [facility] Last Admin: 02/23/17 09:21 Dose: 600 mg Ipratropium [place] (Atrovent) 0.5 mg IH RQ4 [facility] Last Admin: 02/23/17 15:42 Dose: 0.5 mg Lisinopril (Zestril) 2.5 mg PO DAILY [facility] Last Admin: 04/17/17 09:19 Dose: 2.5 mg Prednisone (Prednisone Tab) 20 mg PO DAILY [facility] Last Admin: 02/23/17 09:18 Dose: 20 mg Spironolactone (Aldactone) 25 mg PO DAILY [facility] Last Admin: 02/23/17 09:18 Dose: 25 mg - Labs Labs: 02/23/17 10:58 02/23/17 10:58 PT 20.3 SECONDS (9.7-12.2) H 02/22/17 19:56 INR 1.8 02/22/17 19:56 APTT 30 SECONDS (21-34) 02/23/17 10:58 - Constitutional Appears: Toxic, No Acute Distress - Head Exam Head Exam: ATRAUMATIC, NORMOCEPHALIC - Eye Exam Eye Exam: EOMI, PERRL - ENT Exam ENT Exam: Mucous Membranes Moist. absent: Mucous Membranes Dry - Respiratory Exam Respiratory Exam: Rhonchi - Cardiovascular Exam Cardiovascular Exam: +S1, +S2. absent: Gallop, Rubs - GI/Abdominal Exam GI & Abdominal Exam: Soft. absent: Tenderness - Extremities Exam Extremities Exam: absent: Pedal Edema - Neurological Exam Neurological Exam: Alert, Awake, Oriented x3 - Psychiatric Exam Psychiatric exam: Normal Affect, Normal Mood - Skin Skin Exam: Normal Color, Warm Assessment and Plan - Assessment and Plan (Free Text) Assessment: Assessment: 02/23/17: Pt pending discharge to [facility] once confirms pt's address and permanent residence. Pt not clear for discharge until is contacted. [facility] has been unable to contact thus far. Pt is medically stable for discharge to [facility]. Pt receiving daily coumadin 3 mg. Pt's INR 1.7 today. Will continue giving coumadin. On Vantin, as per ID, Dr. Parra. Shortness of breath - secondary to chronic COPD vs pneumonia (hospital acquired) - Cefepime, Vanc and Cipro started (02/13) - Have not been able to get vanc trough because patient refusing blood work - ID consulted (Fidel) help appreciated - f/u recs - Blood and sputum Cxs (02/13) f/u - CXR 02/11 - New opacity at right lung base suspicious for pneumonia. Questionable opacity at left base. Mild congestive change. - CT Chest HR 02/05 - No definite CT evidence of interstitial lung disease. Cardiomegaly and bkqz-eh-sddxzvmi pulmonary vascular congestion. Interval appearance of new round opacities/ nodules in the right upper lobe and left lower lobe since the previous study. The differential diagnosis includes multifocal pneumonia. The possibility of neoplasm is not totally excluded. Follow-up reassessment is recommended. Otherwise no significant interval change since the previous study dated 01/22/2017. COPD (chronic obstructive pulmonary disease) Exacerbation 02/13: Duonebs every 4 hours for SOB 02/11: Added mucomyst to breathing treatments. Will get repeat CXR 02/05: CT chest with high resolution - see above 02/01: Prednisone 40mg PO daily; Taper on discharge. Will require home oxygen. 01/29: Stop Solumedrol IVP; Start Prednisone 40mg PO daily; Taper on discharge. Will require home oxygen. -01/28: Solumedrol reduced to 40mg IVP Q12H. Prior to discharge, change Solumedrol -> Prednisone -01/19-01/28: Continue BIPAP, patient more compliant (sometimes refuses despite being SOB). -01/16: RAPID called due to SOB. BP 80/50's. Bolused 500cc NS. Ordered BIPAP and ABG, however patient refused. Placed back on NC 3L. -01/14-01/15: Patient complaining of SOB with exertion and orthopnea. Maintain Head of bed elevated 30 degrees. -01/13: PT session: 98% O2 at 2L at rest, 96% room air at rest sitting, 82% room air during ambulation, 88% at 2 liter ambulation. -01/12: Walked 20 steps today down bruno, and patient became dizzy, SOB, and almost collapsed. - Consulted Pulmonology, Dr. Cobb, f/u recs -planning for home O2 - Aware of HR in 140's and SOB after eating and low levels of exertion. -LDH 654H -HIV - negative -persistent shortness of breath - Patient with long history of smoking most likely has underlying COPD. Nebulizer treatment. Inhaled steroids. Spiriva. PFT as out pt Systolic dysfunction with acute on chronic heart failure - 02/11: dig level low, increase to 0.25 - EF 10-15%, mechanical MV- no regurg, tricuspid regurg. see full report -Chest CT 01/22 - Cardiomegaly. Cardiac valve prosthesis. Left-sided AICD. Dense coronary artery calcifications. -Small consolidation (favored to reflect atelectasis rather than pneumonia) at the left lung base. -Bibasilar atelectasis. Small airways disease. Mild ground-glass and fine nodular opacities within the right upper lobe, possibly infectious or inflammatory. -7 mm left upper lobe pulmonary nodule. Guidelines by the Fleischner society (radiology 2005; 237:390 5-400) suggests that in patients with low risk for lung cancer, with nodules less than or equal to 8 mm in diameter should have follow-up in approximately 6-12 months. In patients with high-risk, including smokers, follow-up is recommended 3-6 months. Patient with a known malignancy for risk for metastases should receive 3 month follow-up. -Hepatic capsular calcification. -Numerous low-density lesions throughout the liver, possibly cysts. Decompressed gallbladder limits evaluation. Bilateral hypodense renal lesions. Right adrenal gland hypertrophy. 12 mm left adrenal gland nodule measures approximately 9 Hounsfield units, likely adenoma. -Consulted Cardiology, Dr. Arguelles - f/u recs -01/22: Lasix 40mg IVP daily, Spironolactone 25mg daily. CXR - no interval pathology change. -01/19: HOLD LASIX FOR 1 TO 2 DAYS AND CONT MUCINEX. PT PRERENAL AND APPEARS DRY. ON BOTH LASIX AND SPIRONOLACTONE. -SOB APPEARS TO BE SECONDARY TO PULM ETIOLOGY. IMPROVES WITH NEBS. PT WITH RHONCHI B/L. MAY BENEFIT FROM PULM TOILET. -will attempt to obtain company of [facility] for interrogation. -likely deconditioned. will benefit from rehab -01/16: RAPID called due to SOB. BP 80/50's. Bolused 500cc NS. Ordered BIPAP and ABG, however patient refused. Placed back on NC 3L. ProBNP 4070H (less than # on admission) and KACY negative. -01/16: Decrease to Lasix 40mg PO daily (was BID). Admit to telemetry, BNP 4560 on admission Lisinopril 10mg daily Aldactone 25mg PO Daily patient with AICD, will check echo to determine EF CXR 01/03: mild cardiomegaly, mild pulmonary venous congestion. s/p sternotomy, aortic valve replacement, AICD H/O mitral valve replacement with mechanical valve Monitor INR and adjust Coumadin as necessary Cardiac valve replacement 6-7yrs ago Consulted Cardiology, Dr. Arguelles - f/u recs -echocardiogram reviewed. valve leaflets are opening and functional. There is no signficant gradient across the valve. -recommend INR 2.5 to 3.5. STOP Lovenox 3/5 STOP Heparin Drip - cardiac protocol, with bolus (because patient is refusing blood draws) Chronic atrial fibrillation Consulted Cardiology, Dr. Arguelles - f/u recs -Rate controlled -echocardiogram reviewed. valve leaflets are opening and functional. There is no significant gradient across the valve. -recommend INR 2.5 to 3.5. -See PT/INR trends above Coumadin as above - Patient's INR is difficult to maintain with the therapeutic range therefore we will give another 3 mg tonight and check INR tomorrow. Will try to convince the patient to get bloodwork done today. STOP Lovenox 3/5 Cough, acute mucomyst -Mucinex 600mg PO BID -01/28: cough intermittent -01/24 does not complain of cough -01/19-01/22: Persists. Non-productive. Continue Mucinex. -01/15: patient developed productive cough with yellow sputum today. CAD (coronary artery disease) Consulted Cardiology, Dr. Arguelles - f/u recs -Aware of HR in 140's and SOB after eating and low levels of exertion. -unknown graft status. no evidence of ischemia at present -No current angina History of [place] (myocardial infarction) Crestor 10mg PO HS resumed HOLD Crestor 10mg PO HS (last dose 01/18- due to elevated LFTs) ROMIs negative x3 EKG paced Denies chest pain Prophylactic measure Coumadin as above protonix 40mg daily <Johnnie Otoole Jr. - Last Filed: 03/08/17 13:44> Objective - Vital Signs/Intake and Output Vital Signs (last 24 hours): Temp Pulse Resp BP Pulse Ox 97.4 F L 97 H 20 100/62 96 02/26/17 15:22 02/26/17 16:00 02/26/17 15:22 02/26/17 15:22 02/26/17 15:22 - Labs Labs: 02/23/17 10:58 02/23/17 10:58 PT 12.4 SECONDS (9.7-12.2) H D 02/25/17 16:50 INR 1.1 D 02/25/17 16:50 APTT 30 SECONDS (21-34) 02/23/17 10:58 Attending/Attestation - Attestation I have personally seen and examined this patient.: Yes I have fully participated in the care of the patient.: Yes I have reviewed all pertinent clinical information, including history, physical exam and plan: Yes Notes (Text): 03/08/17 13:44 Agree with findings and plan
[2017-02-23] MEDS: Digoxin 250 mcg (0.25 mg) Tab PO SCH (18:35)
[2017-02-23] MEDS: Budesonide 0.5 mg/2 ml Inhal Susp UD INH SCH (19:12)
[2017-02-24] MEDS: Acetylcysteine 20% Inhal Soln (4ml) INH SCH ×6 (00:49→20:34)
[2017-02-24] MEDS: Ipratropium 0.02% Inhal Soln (0.5 mg/2.5 ml) UD IH SCH ×7 (00:49→20:34)
[2017-02-24] MEDS: Cefpodoxime (Vantin) 200 mg Tab PO SCH ×2 (02:17→14:18)
[2017-02-24] MEDS: guaiFENesin 600 mg ER Tab PO SCH ×2 (10:10→17:46)
[2017-02-24 15:57] VITALS: RESP 20
--- NOTE | 2017-02-24 16:56 | CP.PCM.DIS ---
Provider - Provider Date of Admission: 01/03/17 15:01 Attending physician: Johnnie Otoole Jr, MD Time Spent in preparation of Discharge (in minutes): 57 Hospital Course - Lab Results Lab Results: Micro Results 02/13/17 Unknown Sputum Gram Stain - Final 02/13/17 Unknown Sputum Sputum Culture - Final NORMAL ORAL ITZEL Most Recent Lab Values WBC 7.8 K/uL (4.8-10.8) 02/23/17 10:58 RBC 4.80 Mil/uL (4.40-5.90) 02/23/17 10:58 Hgb 12.5 g/dL (12.0-18.0) 02/23/17 10:58 Hct 38.9 % (35.0-51.0) 02/23/17 10:58 MCV 81.0 fL (80.0-94.0) 02/23/17 10:58 MCH 26.0 pg (27.0-31.0) L 02/23/17 10:58 MCHC 32.1 g/dL (33.0-37.0) L 02/23/17 10:58 RDW 18.1 % (11.5-14.5) H 02/23/17 10:58 Plt Count 210 K/uL (130-400) 02/23/17 10:58 MPV 7.4 fL (7.2-11.7) 02/23/17 10:58 Neut % (Auto) 71.6 % (50.0-75.0) 02/23/17 10:58 Lymph % (Auto) 12.0 % (20.0-40.0) L 02/23/17 10:58 [place] % (Auto) 15.8 % (0.0-10.0) H 02/23/17 10:58 Eos % (Auto) 0.2 % (0.0-4.0) 02/23/17 10:58 Baso % (Auto) 0.4 % (0.0-2.0) 02/23/17 10:58 Neut # 5.6 K/uL (1.8-7.0) 02/23/17 10:58 Lymph # 0.9 K/uL (1.0-4.3) L 02/23/17 10:58 [place] # 1.2 K/uL (0.0-0.8) H 02/23/17 10:58 Eos # 0.0 K/uL (0.0-0.7) 02/23/17 10:58 Baso # 0.0 K/uL (0.0-0.2) 02/23/17 10:58 Neutrophils % (Manual) 66 % (50-75) 02/20/17 11:24 Band Neutrophils % 8 % (0-2) H 02/20/17 11:24 Lymphocytes % (Manual) 16 % (20-40) L 02/20/17 11:24 Reactive Lymphs % 2 % (0-0) H 01/17/17 10:32 Monocytes % (Manual) 8 % (0-10) 02/20/17 11:24 Eosinophils % (Manual) 1 % (0-4) 01/12/17 11:01 Basophils % (Manual) 1 % (0-2) 01/12/17 11:01 Myelocytes % 2 % (0-0) H 02/20/17 11:24 Differential Comment Cancelled 02/20/17 11:24 Toxic Granulation Present 01/18/17 10:50 Platelet Estimate Normal (NORMAL) 02/20/17 11:24 Large Platelets Present 01/29/17 17:03 RBC Morphology Normal 01/20/17 17:09 Polychromasia Slight 01/18/17 10:50 Hypochromasia (manual) Slight 02/20/17 11:24 Poikilocytosis (manual Slight 02/20/17 11:24 Anisocytosis (manual) Slight 02/20/17 11:24 Microcytosis (manual) Slight 01/29/17 17:03 Macrocytosis (manual) Slight 01/24/17 11:33 Tear Drop Cells Slight 01/28/17 14:59 Ovalocytes Slight 02/20/17 11:24 [place]vy Cells Slight 01/28/17 14:59 PT 20.3 SECONDS (9.7-12.2) H 02/22/17 19:56 INR 1.8 02/22/17 19:56 APTT 30 SECONDS (21-34) 02/23/17 10:58 D-Dimer, Quantitative < 200 ng/mlDDU (0-243) 01/03/17 16:01 Sodium 133 mmol/L (132-148) 02/23/17 10:58 Potassium 4.5 mmol/L (3.6-5.2) 02/23/17 10:58 Chloride 97 mmol/L (98-107) L 02/23/17 10:58 Carbon Dioxide 31 mmol/L (22-30) H 02/23/17 10:58 Anion Gap 10 (10-20) 02/23/17 10:58 BUN 23 mg/dL (9-20) H 02/23/17 10:58 Creatinine 0.9 MG/DL (0.8-1.5) 02/23/17 10:58 Est GFR ( Amer) > 60 02/23/17 10:58 Est GFR (Non-Af Amer) > 60 02/23/17 10:58 POC Glucose (mg/dL) 83 mg/dL (65-110) 02/21/17 11:48 Random Glucose 85 mg/dL (75-110) 02/23/17 10:58 Calcium 9.3 mg/dl (8.6-10.4) 02/23/17 10:58 Phosphorus 2.9 mg/dL (2.5-4.5) 02/20/17 11:24 Magnesium 2.1 mg/dL (1.6-2.3) 02/20/17 11:24 Total Bilirubin 0.5 mg/dL (0.2-1.3) 02/23/17 10:58 AST 49 U/L (17-59) 02/23/17 10:58 ALT 82 U/L (21-72) H D 02/23/17 10:58 Alkaline Phosphatase 55 U/L (38-126) 02/23/17 10:58 Lactate Dehydrogenase 654 U/L (313-618) H 01/14/17 13:54 Total Creatine Kinase 37 U/L (55-170) L 01/16/17 13:03 CK-MB (Mass) 1.57 ng/mL (0.0-3.38) 01/16/17 13:03 Troponin I 0.0360 ng/mL (0.00-0.120) 01/03/17 13:23 Troponin I, Quant < 0.0120 ng/mL (0.00-0.120) 01/16/17 13:03 NT-Pro-B Natriuret Pep 4070 pg/mL (0-900) H 01/16/17 13:03 Total Protein 5.9 g/dL (6.3-8.3) L 02/23/17 10:58 Albumin 3.2 g/dL (3.5-5.0) L 02/23/17 10:58 Globulin 2.7 gm/dL (2.2-3.9) 02/23/17 10:58 Albumin/Globulin Ratio 1.2 (1.0-2.1) 02/23/17 10:58 Triglycerides 70 mg/dL (0-149) 01/04/17 03:44 Cholesterol 134 mg/dL (0-199) 01/04/17 03:44 LDL Cholesterol Direct 92 mg/dL (0-129) 01/04/17 03:44 HDL Cholesterol 33 mg/dL (30-70) 01/04/17 03:44 Thyroxine (T4) 7.17 ug/dL (5.5-11.0) 01/04/17 03:44 TSH 3rd Generation 1.02 mIU/L (0.46-4.68) 01/04/17 03:44 Urine Color Yellow (YELLOW) 01/03/17 21:37 Urine Clarity Clear (Clear) 01/03/17 21:37 Urine pH 5.0 (5.0-8.0) 01/03/17 21:37 Ur Specific [place] 1.013 (1.003-1.030) 01/03/17 21:37 Urine Protein Negative mg/dL (NEGATIVE) 01/03/17 21:37 Urine Glucose (UA) Normal mg/dL (Normal) 01/03/17 21:37 Urine Ketones Negative mg/dL (NEGATIVE) 01/03/17 21:37 Urine Blood Negative (NEGATIVE) 01/03/17 21:37 Urine Nitrate Negative (NEGATIVE) 01/03/17 21:37 Urine Bilirubin Negative (NEGATIVE) 01/03/17 21:37 Urine Urobilinogen 2.0 mg/dL (0.2-1.0) 01/03/17 21:37 Ur Leukocyte Esterase Neg Robina/uL (Negative) 01/03/17 21:37 Urine RBC (Auto) 2 /hpf (0-3) 01/03/17 21:37 Ur Squamous Epith Cells 8 /hpf (0-5) H 01/03/17 21:37 Digoxin 0.4 ng/mL (0.8-2.0) L 02/11/17 10:59 HIV 1&2 Antibody Screen Negative (NEGATIVE) 01/14/17 13:54 - Hospital Course Hospital Course: HPI: Pt is a 71 year old male with past medical history including CT, CAD with history of CABG and valve replacement 6-7 years ago. Patient reports that for the 2-3 days prior to admission he had shortness of breath and dizziness that had been getting progressively worse. Patient also reported right sided chest pain that is reproducible on palpation. Patient stated that he had been living in his car and had not had medical care recently since moving to [place] from [place]. Patient denied palpitations, chest pressure, abdominal pain, nausea, or vomiting. Patient also reported taking 5mg of coumadin nightly but did not know for what condition he takes it. Patient denied history of blood clots Hospital Course: Pt was admitted for COPD exacterbation and end stage lung disease. CT Chest revealed no evidence of interstitial lung disease. Cardiomegaly and [id number] pulmonary vascular congestion. Interval appearance of new round opacities/ nodules in the right upper lobe and left lower lobe since the previous study. The differential diagnosis includes multifocal pneumonia. The possibility of neoplasm is not totally excluded. Follow-up reassessment is recommended. Otherwise no significant interval change since the previous study dated 01/22/2017 (please see full report). Pt started on Bipap, steroids, and Iv antibiotics. Pt also started on nebulizer treatments and mucomyst. Infectious Disease, Dr. Parra, was consulted. Pt also has a history of systolic CHF. Echocardiogram revealed an ejection fraction of 10-15% . BNP was 4650 on admission. Cardiology, Dr. Arguelles, was consulted. Pt started on lasix, aldactone, and lisinopril. Pt also has a history of atrial fibrillation and mitral valve replacement with placement of a mechanical valve. Pt was continued on coumadin, but on certain days, refused labs so INR was unable to be measured accurately. Pt's crestor was held due to elevated LFTs. Pt was unable to be discharged and kept at the hospital because he was unable to get approval to [facility] since estranged would not answer calls from [facility]. Pt required oxygen thus could not be discharged to home. Pt's eventually came to the hospital and pt was accepted to [facility]. Discharge Exam - Head Exam Head Exam: ATRAUMATIC, NORMOCEPHALIC - Eye Exam Eye Exam: EOMI, PERRL - ENT Exam ENT Exam: Mucous Membranes Moist - Neck Exam Neck exam: Full Rom - Respiratory Exam Respiratory Exam: Rhonchi, Wheezes - Cardiovascular Exam Cardiovascular Exam: Gallop, +S1, +S2, Systolic Murmur - GI/Abdominal Exam GI & Abdominal Exam: absent: Diminished Bowel Sounds, Distended - Extremities Exam Extremities exam: full ROM - Neurological Exam Neurological exam: Alert, Oriented x3 - Psychiatric Exam Psychiatric exam: Normal Affect, Normal Mood - Skin Skin Exam: Normal Color, Warm Discharge Plan - Follow Up Plan Condition: STABLE Disposition: REHAB FACILITY/REHAB UNIT Patient education suggested?: Yes Additional Instructions: Patient is stable for discharge per Dr. Otoole. Patient should resume all medications as outlined in this document. Please note, patient take Coumadin for hx of Mechanical heart valve + Atrial Fibrillation. Please follow INR and adjust coumadin to maintain INR 2.5-3.5. 1. Please make an appointment and follow up with Primary Doctor within one week of discharge. If patient does not have a Primary Doctor, please follow up with [facility] to establish medical care, at [phone]. 2. Please follow up with a Candles Pourer (Dr. Cobb) on discharge to help treat your COPD. He recommends a pulmonary function test as out pt. You will also require home oxygen. 3. Please have a pulmonolgist evaluate and follow your new finding of 7 mm left upper lobe pulmonary nodule. You are considered a high-risk patient due to your smoking history, and follow-up is recommended 3-6 months. 4. Please follow up with a irrigation service technician regarding Numerous low-density lesions throughout the liver, possibly cysts. Patient should return to ED immediately if symptoms return or worsen. Instructions discussed with patient who understood and agreed. Clinical Quality Measures - CQM - Stroke Antithrombotic Prescribed: Yes Anticoagulation Prescribed for Atrial Flutter, Atrial Fibrillation and History of:: Yes Contraindication/Reason for not providing: Other If Other selected, reason for not providing: Trasnaminitis - CQM - VTE Did patient receive overlap therapy during hosptialization?: Yes If yes, what was given to the patient?: coumadin - CQM - Heart Failure Ejection Fraction: Less Than 40 % EMILY Inhibitor Prescribed: Yes Beta-Lexx Prescribed: None Contraindication/Reason for not providing: hypotension Angiotensin II Receptor Lexx Prescribed: No Contraindication/Reason for not providing: on EMILY inhibitor AnticoagulationTherapy for Atrial Fibrillation/Atrialflutter: Yes Aldosterone Antagonist Prescribed: Yes Hydralazine Nitrate Prescribed: No Contraindication/Reason for not providing: on EMILY inhibitor Implantable Cardioverter Defibrillator Therapy: No Contraindication/Reason for not providing: going to [facility] Cardiac Resynchronization Therapy Prescribed: Yes Will be discharged to: [facility]
[2017-02-24] MEDS: Digoxin 250 mcg (0.25 mg) Tab PO SCH (17:46)
--- NOTE | 2017-02-24 17:52 | PCM.HF ---
Heart Failure Core Measure - Heart Failure Ejection Fraction: Less Than 40 % (lvef 12%) EMILY Inhibitor Prescribed: Yes Beta-Lexx Prescribed: None Contraindication/Reason for not providing: copd Angiotensin II Receptor Lexx Prescribed: No Contraindication/Reason for not providing: on emily AnticoagulationTherapy for Atrial Fibrillation/Atrialflutter: Yes Aldosterone Antagonist Prescribed: No Contraindication/Reason for not providing: renal dysfunction Hydralazine Nitrate Prescribed: No Contraindication/Reason for not providing: renal dysfunction Implantable Cardioverter Defibrillator Therapy: Yes Cardiac Resynchronization Therapy Prescribed: No Contraindication/Reason for not providing: pacemaker - Follow up [facility] Follow Up Date (must be within 7 days from discharge): 02/27/17 Follow Up Time: 09:00
[2017-02-25] MEDS: Ipratropium 0.02% Inhal Soln (0.5 mg/2.5 ml) UD IH SCH ×5 (07:46→23:50)
[2017-02-25] MEDS: Acetylcysteine 20% Inhal Soln (4ml) INH SCH ×5 (07:46→23:48)
[2017-02-25] MEDS: guaiFENesin 600 mg ER Tab PO SCH ×2 (10:40→17:40)
[2017-02-25 17:00] LABS: INR 1.1
[2017-02-25] MEDS: Digoxin 250 mcg (0.25 mg) Tab PO SCH (17:40)
--- NOTE | 2017-02-25 22:47 | CP.PCM.PN ---
<James Lee - Last Filed: 02/25/17 22:44> Subjective - Date & Time of Evaluation Date of Evaluation: 02/25/17 Time of Evaluation: 07:54 - Subjective Subjective: Pt seen and examined. Pt reports shortness of breath. Pt denies fever, chills, chest pain, nausea, and vomiting. Objective - Vital Signs/Intake and Output Vital Signs (last 24 hours): Temp Pulse Resp BP Pulse Ox 97.1 F L 73 20 94/61 L 100 02/25/17 15:28 02/25/17 16:00 02/25/17 15:28 02/25/17 15:28 02/25/17 15:28 - Medications Medications: Current Medications Acetylcysteine (Acetylcysteine 20%) 4 ml INH RQ4 [facility] Last Admin: 02/25/17 19:48 Dose: 4 ml Benzocaine/Menthol (Cepacol Sore Throat) 1 sarah MT Q6H PRN PRN Reason: Sore Throat Last Admin: 02/22/17 09:09 Dose: 1 sarah Budesonide (Pulmicort Respules) 0.5 mg INH RQ12 [facility] Last Admin: 02/23/17 19:12 Dose: 0.5 mg Digoxin (Lanoxin) 0.25 mg PO DAILY@1800 [facility] Last Admin: 02/25/17 17:40 Dose: 0.25 mg Famotidine (Pepcid) 20 mg PO DAILY [facility] Last Admin: 02/25/17 10:37 Dose: 20 mg Guaifenesin (Mucinex La) 600 mg PO BID [facility] Last Admin: 02/25/17 17:40 Dose: 600 mg Ipratropium Zwingle (Atrovent) 0.5 mg IH RQ4 [facility] Last Admin: 02/25/17 19:48 Dose: 0.5 mg Lisinopril (Zestril) 2.5 mg PO DAILY [facility] Last Admin: 02/25/17 10:40 Dose: 2.5 mg Prednisone (Prednisone Tab) 20 mg PO DAILY [facility] Last Admin: 02/25/17 10:37 Dose: 20 mg Spironolactone (Aldactone) 25 mg PO DAILY [facility] Last Admin: 02/25/17 10:37 Dose: 25 mg Warfarin Sodium (Coumadin) 3 mg PO 1800 [facility] Last Admin: 02/25/17 17:40 Dose: 3 mg - Labs Labs: 02/23/17 10:58 02/23/17 10:58 PT 12.4 SECONDS (9.7-12.2) H D 02/25/17 16:50 INR 1.1 D 02/25/17 16:50 APTT 30 SECONDS (21-34) 02/23/17 10:58 - Constitutional Appears: No Acute Distress, Chronically Ill - Head Exam Head Exam: ATRAUMATIC, NORMOCEPHALIC - Eye Exam Eye Exam: EOMI - ENT Exam ENT Exam: Mucous Membranes Moist. absent: Mucous Membranes Dry - Respiratory Exam Respiratory Exam: Rhonchi - Cardiovascular Exam Cardiovascular Exam: Gallop, Irregular Rhythm - GI/Abdominal Exam GI & Abdominal Exam: Soft. absent: Tenderness - Extremities Exam Extremities Exam: Full ROM. absent: Pedal Edema - Neurological Exam Neurological Exam: Alert, Awake, Oriented x3 - Psychiatric Exam Psychiatric exam: Normal Affect, Normal Mood - Skin Skin Exam: Normal Color, Warm Assessment and Plan - Assessment and Plan (Free Text) Assessment: Pt pending discharge to [facility] once insurance accepts. Coumadin 3 mg po given. INR 1.1 today. Shortness of breath - secondary to chronic COPD vs pneumonia (hospital acquired) - Cefepime, Vanc and Cipro started (02/13) - Have not been able to get vanc trough because patient refusing blood work - ID consulted (Fidel) help appreciated - f/u recs - Blood and sputum Cxs (02/13) f/u - CXR 02/11 - New opacity at right lung base suspicious for pneumonia. Questionable opacity at left base. Mild congestive change. - CT Chest HR 02/05 - No definite CT evidence of interstitial lung disease. Cardiomegaly and [id number] pulmonary vascular congestion. Interval appearance of new round opacities/ nodules in the right upper lobe and left lower lobe since the previous study. The differential diagnosis includes multifocal pneumonia. The possibility of neoplasm is not totally excluded. Follow-up reassessment is recommended. Otherwise no significant interval change since the previous study dated 01/22/2017. COPD (chronic obstructive pulmonary disease) Exacerbation 02/13: Duonebs every 4 hours for SOB 02/11: Added mucomyst to breathing treatments. Will get repeat CXR 02/05: CT chest with high resolution - see above 02/01: Prednisone 40mg PO daily; Taper on discharge. Will require home oxygen. 01/29: Stop Solumedrol IVP; Start Prednisone 40mg PO daily; Taper on discharge. Will require home oxygen. -01/28: Solumedrol reduced to 40mg IVP Q12H. Prior to discharge, change Solumedrol -> Prednisone -01/19-01/28: Continue BIPAP, patient more compliant (sometimes refuses despite being SOB). -01/16: RAPID called due to SOB. BP 80/50's. Bolused 500cc NS. Ordered BIPAP and ABG, however patient refused. Placed back on NC 3L. -01/14-01/15: Patient complaining of SOB with exertion and orthopnea. Maintain Head of bed elevated 30 degrees. -01/13: PT session: 98% O2 at 2L at rest, 96% room air at rest sitting, 82% room air during ambulation, 88% at 2 liter ambulation. -01/12: Walked 20 steps today down bruno, and patient became dizzy, SOB, and almost collapsed. - Consulted Pulmonology, Dr. Cobb, f/u recs -planning for home O2 - Aware of HR in 140's and SOB after eating and low levels of exertion. -LDH 654H -HIV - negative -persistent shortness of breath - Patient with long history of smoking most likely has underlying COPD. Nebulizer treatment. Inhaled steroids. Spiriva. PFT as out pt Systolic dysfunction with acute on chronic heart failure - 02/11: dig level low, increase to 0.25 - EF 10-15%, mechanical MV- no regurg, tricuspid regurg. see full report -Chest CT 01/22 - Cardiomegaly. Cardiac valve prosthesis. Left-sided AICD. Dense coronary artery calcifications. -Small consolidation (favored to reflect atelectasis rather than pneumonia) at the left lung base. -Bibasilar atelectasis. Small airways disease. Mild ground-glass and fine nodular opacities within the right upper lobe, possibly infectious or inflammatory. -7 mm left upper lobe pulmonary nodule. Guidelines by the Fleischner society (radiology 2005; 237:390 5-400) suggests that in patients with low risk for lung cancer, with nodules less than or equal to 8 mm in diameter should have follow-up in approximately 6-12 months. In patients with high-risk, including smokers, follow-up is recommended 3-6 months. Patient with a known malignancy for risk for metastases should receive 3 month follow-up. -Hepatic capsular calcification. -Numerous low-density lesions throughout the liver, possibly cysts. Decompressed gallbladder limits evaluation. Bilateral hypodense renal lesions. Right adrenal gland hypertrophy. 12 mm left adrenal gland nodule measures approximately 9 Hounsfield units, likely adenoma. -Consulted Cardiology, Dr. Arguelles - f/u recs -01/22: Lasix 40mg IVP daily, Spironolactone 25mg daily. CXR - no interval pathology change. -01/19: HOLD LASIX FOR 1 TO 2 DAYS AND CONT MUCINEX. PT PRERENAL AND APPEARS DRY. ON BOTH LASIX AND SPIRONOLACTONE. -SOB APPEARS TO BE SECONDARY TO PULM ETIOLOGY. IMPROVES WITH NEBS. PT WITH RHONCHI B/L. MAY BENEFIT FROM PULM TOILET. -will attempt to obtain company of [facility] for interrogation. -likely deconditioned. will benefit from rehab -01/16: RAPID called due to SOB. BP 80/50's. Bolused 500cc NS. Ordered BIPAP and ABG, however patient refused. Placed back on NC 3L. ProBNP 4070H (less than # on admission) and KACY negative. -01/16: Decrease to Lasix 40mg PO daily (was BID). Admit to telemetry, BNP 4560 on admission Lisinopril 10mg daily Aldactone 25mg PO Daily patient with AICD, will check echo to determine EF CXR 01/03: mild cardiomegaly, mild pulmonary venous congestion. s/p sternotomy, aortic valve replacement, AICD H/O mitral valve replacement with mechanical valve Monitor INR and adjust Coumadin as necessary Cardiac valve replacement 6-7yrs ago Consulted Cardiology, Dr. Arguelles - f/u recs -echocardiogram reviewed. valve leaflets are opening and functional. There is no signficant gradient across the valve. -recommend INR 2.5 to 3.5. STOP Lovenox 3/5 STOP Heparin Drip - cardiac protocol, with bolus (because patient is refusing blood draws) Chronic atrial fibrillation Consulted Cardiology, Dr. Arguelles - f/u recs -Rate controlled -echocardiogram reviewed. valve leaflets are opening and functional. There is no significant gradient across the valve. -recommend INR 2.5 to 3.5. -See PT/INR trends above Coumadin as above - Patient's INR is difficult to maintain with the therapeutic range therefore we will give another 3 mg tonight and check INR tomorrow. Will try to convince the patient to get bloodwork done today. STOP Lovenox 01/11 Cough, acute mucomyst -Mucinex 600mg PO BID -01/28: cough intermittent -01/24 does not complain of cough -01/19-01/22: Persists. Non-productive. Continue Mucinex. -01/15: patient developed productive cough with yellow sputum today. CAD (coronary artery disease) Consulted Cardiology, Dr. Arguelles - f/u recs -Aware of HR in 140's and SOB after eating and low levels of exertion. -unknown graft status. no evidence of ischemia at present -No current angina History of MD (myocardial infarction) Crestor 10mg PO HS resumed HOLD Crestor 10mg PO HS (last dose 01/18- due to elevated LFTs) ROMIs negative x3 EKG paced Denies chest pain Prophylactic measure Coumadin as above protonix 40mg daily <Johnnie Otoole Jr. - Last Filed: 03/08/17 13:48> Objective - Vital Signs/Intake and Output Vital Signs (last 24 hours): Temp Pulse Resp BP Pulse Ox 97.4 F L 97 H 20 100/62 96 02/26/17 15:22 02/26/17 16:00 02/26/17 15:22 02/26/17 15:22 02/26/17 15:22 - Labs Labs: 02/23/17 10:58 02/23/17 10:58 PT 12.4 SECONDS (9.7-12.2) H D 02/25/17 16:50 INR 1.1 D 02/25/17 16:50 APTT 30 SECONDS (21-34) 02/23/17 10:58 Attending/Attestation - Attestation I have personally seen and examined this patient.: Yes I have fully participated in the care of the patient.: Yes I have reviewed all pertinent clinical information, including history, physical exam and plan: Yes Notes (Text): 03/08/17 13:48 Agree with findings and plan
[2017-02-26] MEDS: Acetylcysteine 20% Inhal Soln (4ml) INH SCH ×4 (03:13→16:17)
[2017-02-26] MEDS: Ipratropium 0.02% Inhal Soln (0.5 mg/2.5 ml) UD IH SCH ×4 (03:13→16:17)
[2017-02-26] MEDS: guaiFENesin 600 mg ER Tab PO SCH ×2 (10:00→17:09)
[2017-02-26 15:23] VITALS: BP 100/62; PULSE 97; TEMP 97.4; O2SAT 96
[2017-02-26] MEDS: Digoxin 250 mcg (0.25 mg) Tab PO SCH (17:09)
[2017-02-26 17:10] VITALS: PULSE 85
--- NOTE | 2017-02-26 23:26 | CP.PCM.DIS ---
Provider - Provider Date of Admission: 01/03/17 15:01 Attending physician: Johnnie Otoole Jr, MD Time Spent in preparation of Discharge (in minutes): 31 Hospital Course - Lab Results Lab Results: Micro Results 02/13/17 Unknown Sputum Gram Stain - Final 02/13/17 Unknown Sputum Sputum Culture - Final NORMAL ORAL ITZEL Most Recent Lab Values WBC 7.8 K/uL (4.8-10.8) 02/23/17 10:58 RBC 4.80 Mil/uL (4.40-5.90) 02/23/17 10:58 Hgb 12.5 g/dL (12.0-18.0) 02/23/17 10:58 Hct 38.9 % (35.0-51.0) 02/23/17 10:58 MCV 81.0 fL (80.0-94.0) 02/23/17 10:58 MCH 26.0 pg (27.0-31.0) L 02/23/17 10:58 MCHC 32.1 g/dL (33.0-37.0) L 02/23/17 10:58 RDW 18.1 % (11.5-14.5) H 02/23/17 10:58 Plt Count 210 K/uL (130-400) 02/23/17 10:58 MPV 7.4 fL (7.2-11.7) 02/23/17 10:58 Neut % (Auto) 71.6 % (50.0-75.0) 02/23/17 10:58 Lymph % (Auto) 12.0 % (20.0-40.0) L 02/23/17 10:58 Baker % (Auto) 15.8 % (0.0-10.0) H 02/23/17 10:58 Eos % (Auto) 0.2 % (0.0-4.0) 02/23/17 10:58 Baso % (Auto) 0.4 % (0.0-2.0) 02/23/17 10:58 Neut # 5.6 K/uL (1.8-7.0) 02/23/17 10:58 Lymph # 0.9 K/uL (1.0-4.3) L 02/23/17 10:58 Baker # 1.2 K/uL (0.0-0.8) H 02/23/17 10:58 Eos # 0.0 K/uL (0.0-0.7) 02/23/17 10:58 Baso # 0.0 K/uL (0.0-0.2) 02/23/17 10:58 Neutrophils % (Manual) 66 % (50-75) 02/20/17 11:24 Band Neutrophils % 8 % (0-2) H 02/20/17 11:24 Lymphocytes % (Manual) 16 % (20-40) L 02/20/17 11:24 Reactive Lymphs % 2 % (0-0) H 01/17/17 10:32 Monocytes % (Manual) 8 % (0-10) 02/20/17 11:24 Eosinophils % (Manual) 1 % (0-4) 01/12/17 11:01 Basophils % (Manual) 1 % (0-2) 01/12/17 11:01 Myelocytes % 2 % (0-0) H 02/20/17 11:24 Differential Comment Cancelled 02/20/17 11:24 Toxic Granulation Present 01/18/17 10:50 Platelet Estimate Normal (NORMAL) 02/20/17 11:24 Large Platelets Present 01/29/17 17:03 RBC Morphology Normal 01/20/17 17:09 Polychromasia Slight 01/18/17 10:50 Hypochromasia (manual) Slight 02/20/17 11:24 Poikilocytosis (manual Slight 02/20/17 11:24 Anisocytosis (manual) Slight 02/20/17 11:24 Microcytosis (manual) Slight 01/29/17 17:03 Macrocytosis (manual) Slight 01/24/17 11:33 Tear Drop Cells Slight 01/28/17 14:59 Ovalocytes Slight 02/20/17 11:24 [place] Cells Slight 01/28/17 14:59 PT 12.4 SECONDS (9.7-12.2) H D 02/25/17 16:50 INR 1.1 D 02/25/17 16:50 APTT 30 SECONDS (21-34) 02/23/17 10:58 D-Dimer, Quantitative < 200 ng/mlDDU (0-243) 01/03/17 16:01 Sodium 133 mmol/L (132-148) 02/23/17 10:58 Potassium 4.5 mmol/L (3.6-5.2) 02/23/17 10:58 Chloride 97 mmol/L (98-107) L 02/23/17 10:58 Carbon Dioxide 31 mmol/L (22-30) H 02/23/17 10:58 Anion Gap 10 (10-20) 02/23/17 10:58 BUN 23 mg/dL (9-20) H 02/23/17 10:58 Creatinine 0.9 MG/DL (0.8-1.5) 02/23/17 10:58 Est GFR ( Amer) > 60 02/23/17 10:58 Est GFR (Non-Af Amer) > 60 02/23/17 10:58 POC Glucose (mg/dL) 83 mg/dL (65-110) 02/21/17 11:48 Random Glucose 85 mg/dL (75-110) 02/23/17 10:58 Calcium 9.3 mg/dl (8.6-10.4) 02/23/17 10:58 Phosphorus 2.9 mg/dL (2.5-4.5) 02/20/17 11:24 Magnesium 2.1 mg/dL (1.6-2.3) 02/20/17 11:24 Total Bilirubin 0.5 mg/dL (0.2-1.3) 02/23/17 10:58 AST 49 U/L (17-59) 02/23/17 10:58 ALT 82 U/L (21-72) H D 02/23/17 10:58 Alkaline Phosphatase 55 U/L (38-126) 02/23/17 10:58 Lactate Dehydrogenase 654 U/L (313-618) H 01/14/17 13:54 Total Creatine Kinase 37 U/L (55-170) L 01/16/17 13:03 CK-MB (Mass) 1.57 ng/mL (0.0-3.38) 01/16/17 13:03 Troponin I 0.0360 ng/mL (0.00-0.120) 01/03/17 13:23 Troponin I, Quant < 0.0120 ng/mL (0.00-0.120) 01/16/17 13:03 NT-Pro-B Natriuret Pep 4070 pg/mL (0-900) H 01/16/17 13:03 Total Protein 5.9 g/dL (6.3-8.3) L 02/23/17 10:58 Albumin 3.2 g/dL (3.5-5.0) L 02/23/17 10:58 Globulin 2.7 gm/dL (2.2-3.9) 02/23/17 10:58 Albumin/Globulin Ratio 1.2 (1.0-2.1) 02/23/17 10:58 Triglycerides 70 mg/dL (0-149) 01/04/17 03:44 Cholesterol 134 mg/dL (0-199) 01/04/17 03:44 LDL Cholesterol Direct 92 mg/dL (0-129) 01/04/17 03:44 HDL Cholesterol 33 mg/dL (30-70) 01/04/17 03:44 Thyroxine (T4) 7.17 ug/dL (5.5-11.0) 01/04/17 03:44 TSH 3rd Generation 1.02 mIU/L (0.46-4.68) 01/04/17 03:44 Urine Color Yellow (YELLOW) 01/03/17 21:37 Urine Clarity Clear (Clear) 01/03/17 21:37 Urine pH 5.0 (5.0-8.0) 01/03/17 21:37 Ur Specific [place] 1.013 (1.003-1.030) 01/03/17 21:37 Urine Protein Negative mg/dL (NEGATIVE) 01/03/17 21:37 Urine Glucose (UA) Normal mg/dL (Normal) 01/03/17 21:37 Urine Ketones Negative mg/dL (NEGATIVE) 01/03/17 21:37 Urine Blood Negative (NEGATIVE) 01/03/17 21:37 Urine Nitrate Negative (NEGATIVE) 01/03/17 21:37 Urine Bilirubin Negative (NEGATIVE) 01/03/17 21:37 Urine Urobilinogen 2.0 mg/dL (0.2-1.0) 01/03/17 21:37 Ur Leukocyte Esterase Neg Robina/uL (Negative) 01/03/17 21:37 Urine RBC (Auto) 2 /hpf (0-3) 01/03/17 21:37 Ur Squamous Epith Cells 8 /hpf (0-5) H 01/03/17 21:37 Digoxin 0.4 ng/mL (0.8-2.0) L 02/11/17 10:59 HIV 1&2 Antibody Screen Negative (NEGATIVE) 01/14/17 13:54 - Hospital Course Hospital Course: HPI: Pt is a 71 year old male with past medical history including [place], CAD with history of CABG and valve replacement 6-7 years ago. Patient reports that for the 2-3 days prior to admission he had shortness of breath and dizziness that had been getting progressively worse. Patient also reported right sided chest pain that is reproducible on palpation. Patient stated that he had been living in his car and had not had medical care recently since moving to [place] from [place]. Patient denied palpitations, chest pressure, abdominal pain, nausea, or vomiting. Patient also reported taking 5mg of coumadin nightly but did not know for what condition he takes it. Patient denied history of blood clots Hospital Course: Pt was admitted for COPD exacterbation and end stage lung disease. CT Chest revealed no evidence of interstitial lung disease. Cardiomegaly and [id number] pulmonary vascular congestion. Interval appearance of new round opacities/ nodules in the right upper lobe and left lower lobe since the previous study. The differential diagnosis includes multifocal pneumonia. The possibility of neoplasm is not totally excluded. Follow-up reassessment is recommended. Otherwise no significant interval change since the previous study dated 01/22/2017 (please see full report). Pt started on Bipap, steroids, and Iv antibiotics. Pt also started on nebulizer treatments and mucomyst. Infectious Disease, Dr. Parra, was consulted. Pt also has a history of systolic CHF. Echocardiogram revealed an ejection fraction of 10-15% . BNP was 4650 on admission. Cardiology, Dr. Arguelles, was consulted. Pt started on lasix, aldactone, and lisinopril. Pt also has a history of atrial fibrillation and mitral valve replacement with placement of a mechanical valve. Pt was continued on coumadin, but on certain days, refused labs so INR was unable to be measured accurately. Pt's crestor was held due to elevated LFTs. Pt was unable to be discharged and kept at the hospital because he was unable to get approval to [facility] since estranged would not answer calls from [facility]. Pt required oxygen thus could not be discharged to home. Pt's eventually came to the hospital and pt was accepted to [facility]. Discharge Exam - Head Exam Head Exam: ATRAUMATIC, NORMOCEPHALIC - Eye Exam Eye Exam: EOMI, PERRL - ENT Exam ENT Exam: Mucous Membranes Moist. absent: Mucous Membranes Dry - Respiratory Exam Respiratory Exam: Clear to PA & Lateral. absent: Rales, Rhonchi - Cardiovascular Exam Cardiovascular Exam: Gallop, +S1, +S2. absent: Rubs - GI/Abdominal Exam GI & Abdominal Exam: Soft. absent: Distended, Rebound - Extremities Exam Extremities exam: full ROM - Neurological Exam Neurological exam: Alert, Oriented x3 - Psychiatric Exam Psychiatric exam: Normal Affect, Normal Mood - Skin Skin Exam: Normal Color, Warm Discharge Plan - Discharge Medications Prescriptions: Lisinopril [Zestril] 2.5 mg PO DAILY #30 tab - Follow Up Plan Condition: STABLE Disposition: REHAB FACILITY/REHAB UNIT Patient education suggested?: Yes Instructions: Heart Failure (DC), Heart Healthy Diet (DC) Additional Instructions: Patient is stable for discharge per Dr. Otoole. Patient should resume all medications as outlined in this document. Please note, patient take Coumadin for hx of Mechanical heart valve + Atrial Fibrillation. Please follow INR and adjust coumadin to maintain INR 2.5-3.5. 1. Please make an appointment and follow up with Primary Doctor within one week of discharge. If patient does not have a Primary Doctor, please follow up with [facility] to establish medical care, at [phone]. 2. Please follow up with a Wildlife Biostation Research Ecologist (Dr. Cobb) on discharge to help treat your COPD. He recommends a pulmonary function test as out pt. You will also require home oxygen. 3. Please have a pulmonolgist evaluate and follow your new finding of 7 mm left upper lobe pulmonary nodule. You are considered a high-risk patient due to your smoking history, and follow-up is recommended 3-6 months. 4. Please follow up with a irrigation engineer regarding Numerous low-density lesions throughout the liver, possibly cysts. Patient should return to ED immediately if symptoms return or worsen. Instructions discussed with patient who understood and agreed. Referrals: Greg Cobb MD [Staff Provider] - Johnnie Otoole Jr., MD [Medical Doctor] -
== END 2017-02-26 17:45 | DRG 291 ==
LOC: C.ER 12:24 → C.9E 15:01 → C.6T 18:32
PROVIDERS: ADMIT Internal Medicine; ATTEND Internal Medicine
PROC: 5A09557 Assistance with Respiratory Ventilation, Greater than 96 Consecutive Hours, Continuous Positive Airway Pressure (ICD-10-PCS; principal; 2017-01-16)
DX: I11.0 Hypertensive heart disease with heart failure (principal); J18.9 Pneumonia, unspecified organism; J44.1 Chronic obstructive pulmonary disease with (acute) exacerbation; I82.409 Acute embolism and thrombosis of unspecified deep veins of unspecified lower extremity; E87.5 Hyperkalemia; I48.2 Chronic atrial fibrillation; I45.10 Unspecified right bundle-branch block; I25.10 Atherosclerotic heart disease of native coronary artery without angina pectoris; F17.210 Nicotine dependence, cigarettes, uncomplicated; Z95.1 Presence of aortocoronary bypass graft; Z79.01 Long term (current) use of anticoagulants; Z95.2 Presence of prosthetic heart valve; Z95.0 Presence of cardiac pacemaker; I25.2 Old myocardial infarction; I50.23 Acute on chronic systolic (congestive) heart failure; Z59.0 Homelessness

== ENCOUNTER 2017-11-11 09:31 | Inpatient (IN) | payer MEDICARE, OTHER ==
[2017-11-11 09:31] VITALS: BMI 29.1
--- NOTE | 2017-11-11 09:54 | C.PDOC ---
History Of Present Illness 71 y/o male with PMHx of [place], CAD with CABG, CHF and uncertain of compliance brought to ED by EMS for worsening sob. Upon arrival to ED patient complaints of chest pain. Patient is speaking in full sentences and denies fever, cough, nausea, vomiting or any other complaints at this time. Time Seen by Provider: 11/11/17 09:40 Chief Complaint (Nursing): Chest Pain History Per: Patient History/Exam Limitations: no limitations Onset/Duration Of Symptoms: Hrs Current Symptoms Are (Timing): Still Present Initiating Event: Upper Respiratory Illness Quality: "Pain" Past Medical History Reviewed: Historical Data, Nursing Documentation, Vital Signs Vital Signs: Last Vital Signs Temp 98.0 F 11/11/17 16:17 Pulse 76 11/11/17 16:17 Resp 20 11/11/17 16:17 BP 105/56 L 11/11/17 16:17 Pulse Ox 95 11/11/17 16:17 - Medical History PMH: Atrial Fibrillation, CAD, Cardia Arrhythmia, CHF, COPD, HTN Surgical History: CABG (4 yrs ago), Pacemaker - [employer] Procedures ASSISTANCE WITH RESPIRATORY VENTILATION, >96 HRS, CPAP (01/03/17) Family History: States: No Known Family Hx - Social History Hx Tobacco Use: Yes Hx Alcohol Use: No Hx Substance Use: No - Immunization History Hx Tetanus Toxoid Vaccination: No Hx Influenza Vaccination: No Hx Pneumococcal Vaccination: No Review Of Systems Constitutional: Negative for: Fever, Chills Cardiovascular: Positive for: Chest Pain Respiratory: Positive for: Shortness of Breath. Negative for: Cough Gastrointestinal: Negative for: Nausea, Vomiting Skin: Negative for: Rash Physical Exam - Physical Exam Appears: Non-toxic, No Acute Distress Skin: Normal Color, Warm, Dry, No Rash Head: Atraumatic, Normacephalic Oral Mucosa: Moist Neck: Normal ROM, Supple Cardiovascular: Rhythm Regular, Other (Tachycardic) Respiratory: Normal Breath Sounds, No Rales, No Rhonchi, No Wheezing, Other ( Tachypneic) Gastrointestinal/Abdominal: Soft, No Tenderness, No Guarding, No Rebound Back: No CVA Tenderness Extremity: Normal ROM, No Pedal Edema, No Deformity, No Swelling Neurological/Psych: Oriented x3, Normal Speech (Speaking in full sentences) ED Course And Treatment - Laboratory Results Result Diagrams: 11/11/17 09:58 11/11/17 09:58 ECG: Interpreted By Me, Viewed By Me ECG Rhythm: Atrial Fibrillation, R BBB Interpretation Of ECG: A-fib with RVR and RBBB Rate From EC (BPM) O2 Sat by Pulse Oximetry: 100 (RA) Pulse Ox Interpretation: Normal Critical Care Time - Critical Care Note Total Time (in mins): 40 Documented critical care: time excludes all time spent performing seperately billable procedures. Medical Decision Making Medical Decision Makin: Patient refused VBG with lactate Discussed with Dr. Otoole will accept patient under service cxr pulm vasc congestion as read by me. pt afebrile, no leukoctyosis, exam consistent with chf , less likely pna Disposition - Disposition Disposition: HOSPITALIZED Disposition Time: 10:48 Condition: GUARDED - Clinical Impression Clinical Impression: CHF (congestive heart failure) - Scribe Statement The provider has reviewed the documentation as recorded by the Scribe Radha Figueredo All medical record entries made by the Scribe were at my direction and personally dictated by me. I have reviewed the chart and agree that the record accurately reflects my personal performance of the history, physical exam, medical decision making, and the department course for this patient. I have also personally directed, reviewed, and agree with the discharge instructions and disposition. Decision To Admit - Pt Status Changed To: Hospital Disposition Of: Inpatient - Admit Certification Admit to Inpatient:: After my assessment, the patient will require hospitalization for at least two midnights. This is because of the severity of symptoms shown, intensity of services needed, and/or the medical risk in this patient being treated as an outpatient. - InPatient: Physician Admission Certification: I certify that this patient requires 2 or more midnights of care for the following reason:: needs iv diuresis - . Bed Request Type: Telemetry Admitting Physician: Johnnie Otoole Jr. Patient Diagnosis: CHF (congestive heart failure)
[2017-11-11 10:01] LABS: BASO # 0.1 K/uL (0.0-0.2); BASO % 0.7 % (0.0-2.0); EOS % 0.6 % (0.0-4.0); HEMOGLOBIN 12.1 g/dL (12.0-18.0); LYMPH # 0.6 K/uL (1.0-4.3); LYMPH % 7.9 % (20.0-40.0); MEAN CELL VOLUME 83.7 fL (80.0-94.0); MEAN CORPUSCULAR HEMOGLOBIN 26.4 pg (27.0-31.0); MEAN CORPUSCULAR HGB CONC 31.6 g/dL (33.0-37.0); MEAN PLATELET VOLUME 8.7 fL (7.2-11.7); MONO # 0.7 K/uL (0.0-0.8); MONO % 9.9 % (0.0-10.0); NEUT # 5.9 K/uL (1.8-7.0); NEUT % 80.9 % (50.0-75.0); PLATELET COUNT 248 K/uL (130-400); RBC 4.59 Mil/uL (4.40-5.90); RED CELL DISTRIBUTION WIDTH 17.8 % (11.5-14.5); WHITE BLOOD COUNT 7.3 K/uL (4.8-10.8)
[2017-11-11 10:09] LABS: INR 1.5; PROTHROMBIN TIME 16.8 SECONDS (9.7-12.2)
[2017-11-11 10:19] LABS: ALB/GLOB RATIO 1.2 (1.0-2.1); ALT/SGPT 27 U/L (21-72); AST/SGOT 29 U/L (17-59); BLOOD UREA NITROGEN 24 mg/dL (9-20); CALCIUM 11.7 mg/dl (8.6-10.4); GFR AFRICAN-AMERICAN > 60; GFR NON-AFRICAN AMERICAN > 60
[2017-11-11 10:26] LABS: EOSINOPHIL 1 % (0-4); LYMPHOCYTE 8 % (20-40); MONOCYTE 7 % (0-10); NEUTROPHIL 84 % (50-75); PLATELET ESTIMATE NORMAL (NORMAL); TOTAL CELLS COUNTED 100
[2017-11-11 10:27] LABS: ANISOCYTOSIS SLIGHT; HYPOCHROMIC SLIGHT; POIKILOCYTOSIS SLIGHT
[2017-11-11 10:28] LABS: OVALOCYTES SLIGHT; TEARDROP CELLS SLIGHT
[2017-11-11 10:30] LABS: B-TYPE NATRIURETIC PEPTIDE 8160 pg/mL (0-900)
[2017-11-11] MEDS ORDERED: Enoxaparin 150 mg Syringe SC STA (10:40)
[2017-11-11] MEDS ORDERED: Enoxaparin 60 mg Syringe ONE (10:48)
[2017-11-11] MEDS ORDERED: Enoxaparin 30 mg Syringe ONE (10:48)
--- NOTE | 2017-11-11 11:32 | RAD ---
PROCEDURE: CHEST RADIOGRAPH, 1 VIEW HISTORY: chest pain COMPARISON: 02/14/2017 FINDINGS: LUNGS: Opacity at right lung base may represent pneumonia. Followup advised. No other opacity appreciated. Left base obscured by left heart border. PLEURA: Minimal hazy opacity at right costophrenic angle may reflect small pleural effusion. No evidence of left pleural effusion. No pneumothorax. CARDIOVASCULAR: Minimal cardiomegaly. AICD. Mitral valve prosthesis. No congestive change. OSSEOUS STRUCTURES: No significant abnormalities. VISUALIZED UPPER ABDOMEN: Normal. OTHER FINDINGS: None. IMPRESSION: Right basilar opacity may reflect pneumonia. Follow-up advised. Possible very small right pleural effusion
--- NOTE | 2017-11-11 13:26 | CP.PCM.HP ---
History of Present Illness - History of Present Illness History of Present Illness: CC: "chest pain" HPI: Patient is a 71 y.o. male with PMHx of HTN, AR, CHF, CAD with CABG, who was brought to the ED by EMS with complaints of chest pain. Patient's history was provided by him and his . Patient states that he started experiencing chest pains on 11/10/17 while watching TV. He reports that the pain is localized to left sided chest, and left shoulder with no radiation. Patient describes the pain as dull and constant, and rates it at 10/10 when it started, and currently at 6/10. He denies any palliative or provocative factors. He also complains of cough, shortness of breath, and leg swelling which all started about one week ago. His states that he has not been taking any medications except Aspirin 81 mg for the last month because he is overwhelmed by the amount of medication. At his baseline, patient states that he is unable to walk half a block without being short of breath. Patient states that he had a similar episode ~2 months ago and was hospitalized. Patient follows Patient denies headache, vision changes, abdominal pain, nausea, vomiting, diarrhea, constipation, dysuria, urinary frequency, urinary hesitancy, joint pain, loss of balance. Pulm: Dr. Idris Sommers PMD: [facility] PMHx: AR, Atrial fibrillation, CAD, CHF, HTN PSHx: CABG in 2009 (patient unsure of exact year), mechanical valve placement Medications: Midodrine 5 mg, Memantine 5 mg, Meclizine 12.5 mg, Aspirin 81 mg, Metoprolol 25 mg Social Hx: Smokes cigarettes 1 pack/week since age 13, used to drink alcohol in his 20s, denies any recreational drug use. Lives at home with . Allergies: NKDA Present on Admission - Present on Admission Any Indicators Present on Admission: No History of DVT/PE: No History of Uncontrolled Diabetes: No Urinary Catheter: No Decubitus Ulcer Present: No Review of Systems - Constitutional Constitutional: Weakness. absent: Daytime Sleepiness - Cardiovascular Cardiovascular: Chest Pain, Dyspnea, Edema. absent: Palpitations - Respiratory Respiratory: Cough, Chest Congestion - Gastrointestinal Gastrointestinal: absent: Abdominal Pain, Diarrhea, Nausea, Vomiting - Genitourinary Genitourinary: absent: Difficulty Urinating, Dysuria - Musculoskeletal Musculoskeletal: absent: Numbness, Tingling - Integumentary Integumentary: absent: Rash - Neurological Neurological: Dizziness. absent: Headaches Past Patient History - Infectious Disease Hx of Infectious Diseases: None - Past Medical History & Family History Past Medical History?: Yes - Past Social History Smoking Status: Heavy Smoker > 10 Cigarettes Daily - CARDIAC Hx Atrial Fibrillation: Yes Hx Cardia Arrhythmia: Yes Hx Congestive Heart Failure: Yes Hx Hypertension: Yes Hx Pacemaker: Yes - PULMONARY Hx Chronic Obstructive Pulmonary Disease (COPD): Yes - NEUROLOGICAL Hx Alzheimer's Disease: Yes Hx Dementia: Yes - MUSCULOSKELETAL/RHEUMATOLOGICAL Hx Falls: No - PSYCHIATRIC Hx Substance Use: No - SURGICAL HISTORY Hx Coronary Artery Bypass Graft: Yes (4 yrs ago) - ANESTHESIA Hx Anesthesia: Yes Hx Anesthesia Reactions: No Hx Malignant Hyperthermia: No Meds Allergies/Adverse Reactions: Allergies Allergy/AdvReac Type Severity Reaction Status Date / Time No Known Allergies Allergy Verified 11/11/17 09:54 Physical Exam - Constitutional Appears: Non-toxic, No Acute Distress - Head Exam Head Exam: absent: ATRAUMATIC, NORMAL INSPECTION, NORMOCEPHALIC - Eye Exam Eye Exam: EOMI, Normal appearance - ENT Exam ENT Exam: Mucous Membranes Dry - Respiratory Exam Respiratory Exam: Rales, NORMAL BREATHING PATTERN. absent: Wheezes - Cardiovascular Exam Cardiovascular Exam: Irregular Rhythm, +S1, +S2 - GI/Abdominal Exam GI & Abdominal Exam: Normal Bowel Sounds, Soft. absent: Tenderness - Extremities Exam Extremities exam: Positive for: pedal edema, tenderness - Back Exam Back exam: NORMAL INSPECTION - Neurological Exam Neurological exam: Alert, Oriented x3 - Psychiatric Exam Psychiatric exam: Normal Affect, Normal Mood - Skin Skin Exam: Intact, Normal Color, Warm Results - Vital Signs Recent Vital Signs: Last Vital Signs Temp Pulse 84 11/11/17 12:53 Resp 24 11/11/17 12:53 BP 118/88 11/11/17 12:53 Pulse Ox 100 11/11/17 11:36 - Labs Result Diagrams: 11/11/17 09:58 11/11/17 09:58 Labs: Laboratory Results - last 24 hr 11/11/17 11/11/17 11/11/17 09:58 09:58 09:58 WBC 7.3 RBC 4.59 Hgb 12.1 Hct 38.4 MCV 83.7 D MCH 26.4 L MCHC 31.6 L RDW 17.8 H Plt Count 248 MPV 8.7 Neut % (Auto) 80.9 H Lymph % (Auto) 7.9 L [place] % (Auto) 9.9 Eos % (Auto) 0.6 Baso % (Auto) 0.7 Neut # 5.9 Lymph # 0.6 L [place] # 0.7 Eos # 0.0 Baso # 0.1 Neutrophils % (Manual) 84 H Lymphocytes % (Manual) 8 L Monocytes % (Manual) 7 Eosinophils % (Manual) 1 Platelet Estimate Normal Hypochromasia (manual) Slight Poikilocytosis (manual Slight Anisocytosis (manual) Slight Tear Drop Cells Slight Ovalocytes Slight PT 16.8 H INR 1.5 APTT 23 Sodium 135 Potassium 3.9 Chloride 102 Carbon Dioxide 25 Anion Gap 12 BUN 24 H Creatinine 1.0 Est GFR ( Amer) > 60 Est GFR (Non-Af Amer) > 60 Random Glucose 112 H Calcium 11.7 H Total Bilirubin 1.9 H AST 29 ALT 27 Alkaline Phosphatase 91 Troponin I 0.0510 NT-Pro-B Natriuret Pep 8160 H Total Protein 7.3 Albumin 4.0 Globulin 3.3 Albumin/Globulin Ratio 1.2 Digoxin 11/11/17 09:58 WBC RBC Hgb Hct MCV MCH MCHC RDW Plt Count MPV Neut % (Auto) Lymph % (Auto) [place] % (Auto) Eos % (Auto) Baso % (Auto) Neut # Lymph # [place] # Eos # Baso # Neutrophils % (Manual) Lymphocytes % (Manual) Monocytes % (Manual) Eosinophils % (Manual) Platelet Estimate Hypochromasia (manual) Poikilocytosis (manual Anisocytosis (manual) Tear Drop Cells Ovalocytes PT INR APTT Sodium Potassium Chloride Carbon Dioxide Anion Gap BUN Creatinine Est GFR ( Amer) Est GFR (Non-Af Amer) Random Glucose Calcium Total Bilirubin AST ALT Alkaline Phosphatase Troponin I NT-Pro-B Natriuret Pep Total Protein Albumin Globulin Albumin/Globulin Ratio Digoxin < 0.4 L Assessment & Plan - Assessment and Plan (Free Text) Assessment: CHF exacerbation -Lasix 60 mg given in ED -Lasix 40mg q8h -Echo: 01/03/17: LVEF 12% -Repeat ECHO -BNP: 8160 Afib -Cardizem 20 mg given in ED -restart home med Metoprolol 12.5 mg po BID -INR: 1.5 -Chadsvasc score: 4- High risk for stroke -Hasbled: 2 Moderate risk for bleeding -Lovenox 90 mg sc given in ED -Lovenox 90 mg sc q12h -Coumadin 5mg daily -Cardiology, Dr. Arguelles, consulted Vertigo -Midodrine 5mg po daily -Meclizine 12.5mg po daily Dementia -Memantine 5mg po daily Prophylaxis -Pepcid 20 mg po daily - SCDs contraindicated due to b/l LE edema
--- NOTE | 2017-11-11 18:56 | CP.PCM.CON ---
History of Present Illness - History of Present Illness History of Present Illness: I was asked to evaluate patient by Dr Otoole. Patient is a 71 year old male with PMH HTN, CAD s/p CABG, mechanical MVR, ischemic cardiomyopathy s/p AICD who presents with dsypnea. The patient states symptoms began about 2 weeks ago. the patient developed progressive dsypnea and lower extremity edema. He was admitted for further management. Review of Systems - Constitutional Constitutional: absent: As Per HPI, Anorexia, Chills, Daytime Sleepiness, Excessive Sweating, Fatigue, Fever, Frequent Falls, Headache, Increased Appetite , Lethargy, Malaise, Night Sweats, Snoring, Sleep Apnea, Weight Gain, Weight Loss, Weakness, Other - EENT Eyes: absent: As Per HPI, Blind Spots, Blurred Vision, Change in Vision, Decreased Night Vision, Diplopia, Discharge, Dry Eye, Exophthalmos, Floaters, Irritation, Itchy Eyes, Loss of Peripheral Vision, Pain, Photophobia, Requires Corrective Lenses, Sees Flashes, Spots in Vision, Tunnel Vision, Other Visual Disturbances, Loss of Vision, Other Ears: absent: As Per HPI, Decreased Hearing, Ear Discharge, Ear Pain, Tinnitus, Abnormal Hearing, Disequilibrium, Dizziness, Other Nose/Mouth/Throat: absent: As Per HPI, Epistaxis, Nasal Congestion, Nasal Discharge, Nasal Obstruction, Nasal Trauma, Nose Pain, Post Nasal Drip, Sinus Pain, Sinus Pressure, Bleeding Gums, Change in Voice, Dental Pain, Dry Mouth, Dysphagia, Halitosis, Hoarsness, Lip Swelling, Mouth Lesions, Mouth Pain, Odynophagia, Sore Throat, Throat Swelling, Tongue Swelling, Facial Pain, Neck Pain, Neck Mass, Other - Cardiovascular Cardiovascular: Dyspnea, Dyspnea on Exertion, Leg Edema - Respiratory Respiratory: absent: As Per HPI, Cough, Dyspnea, Hemoptysis, Dyspnea on Exertion , Wheezing, Snoring, Stridor, Pain on Inspiration, Chest Congestion, Excessive Mucous Production, Change in Mucous Color, Pain with Coughing, Other - Gastrointestinal Gastrointestinal: absent: As Per HPI, Abdominal Pain, Belching, Bloating, Change in Bowel Habits, Change in Stool Character, Coffee Ground Emesis, Constipation, Cramping, Diarrhea, Dyspepsia, Dysphagia, Early Satiety, Excessive Flatus, Fecal Incontinence, Heartburn, Hematemesis, Hematochezia, Loose Stools, Melena, Nausea, Odynophagia, Temesmus, Vomiting, Other - Genitourinary Genitourinary: absent: As Per HPI, Change in Urinary Stream, Difficulty Urinating, Dysuria, Flank Pain, Hematuria, Pyuria, Nocturia, Urinary Incontinence, Urinary Frequency, Urinary Hesitance, Urinary Urgency, Voiding Freq/Small Amts, Freq UTI, Hx Renal/Bladder Calculi, Hx /Renal Surgery, Bladder Distension, Other - Musculoskeletal Musculoskeletal: absent: As Per HPI, Abnormal Gait, Arthralgias, Atrophy, Back Pain, Deformity, Joint Swelling, Limited Range of Motion, Loss of Height, Muscle Cramps, Muscle Weakness, Myalgias, Neck Pain, Numbness, Radiating Pain into Limb, Stiffness, Tingling, Other - Integumentary Integumentary: absent: As Per HPI, Acne, Alopecia, Bleeding Lesions, Change in Hair, Change in Nails, Change in Pigmentation, Changing Lesions, Dry Skin, Erythema, Furuncle, Hirsutism, Lesions, New Lesions, Non-Healing Lesions, Photosensitivity, Pruritus, Rash, Skin Pain, Skin Ulcer, Sores, Striae, Swelling , Unusual Bruising, Wounds, Jaundice, Other - Neurological Neurological: absent: As Per HPI, Abnormal Gait, Abnormal Hearing, Abnormal Movements, Abnormal Speech, Behavioral Changes, Burning Sensations, Confusion, Convulsions, Disequilibrium, Dizziness, Numbness, Focal Weakness, Frequent Falls , Headaches, Lack of Coordination, Loss of Vision, Memory Loss, Paresthesias, Radicular Pain, Restless Legs, Sensory Deficit, Syncope, Tingling, Tremor, Vertigo, Weakness, Other Visual Disturbances, Other - Psychiatric Psychiatric: absent: As Per HPI, Abnormal Sleep Pattern, Anhedonia, Anxiety, Auditory Hallucinations, Behavioral Changes, Change in Appetite, Change in Libido, Confusion, Depression, Difficulty Concentrating, Hallucinations, Homicidal Ideation, Hopelessness, Irritability, Memory Loss, Mood Swings, Panic Attacks, Paranoia, Suicidal Ideation, Visual Hallucinations, Tactile Hallucinations, Other - Endocrine Endocrine: absent: As Per HPI, Change in Body Appearance, Change in Libido, Cold Intolorance, Deepening of Voice, Excessive Sweating, Fatigue, Flushing, Heat Intolorance, Increase in Ring/Shoe/Hat Size, Palpitations, Polydipsia, Polyphagia, Polyuria, Other - Hematologic/Lymphatic Hematologic: absent: As Per HPI, Easy Bleeding, Easy Bruising, Lymphadenopathy, Other Past Patient History - Infectious Disease Hx of Infectious Diseases: None - Past Medical History & Family History Past Medical History?: Yes - Past Social History Smoking Status: Heavy Smoker > 10 Cigarettes Daily - CARDIAC Hx Atrial Fibrillation: Yes Hx Cardia Arrhythmia: Yes Hx Congestive Heart Failure: Yes Hx Hypertension: Yes Hx Pacemaker: Yes - PULMONARY Hx Chronic Obstructive Pulmonary Disease (COPD): Yes - NEUROLOGICAL Hx Alzheimer's Disease: Yes Hx Dementia: Yes - MUSCULOSKELETAL/RHEUMATOLOGICAL Hx Falls: No - PSYCHIATRIC Hx Substance Use: No - SURGICAL HISTORY Hx Coronary Artery Bypass Graft: Yes (4 yrs ago) - ANESTHESIA Hx Anesthesia: Yes Hx Anesthesia Reactions: No Hx Malignant Hyperthermia: No Meds Allergies/Adverse Reactions: Allergies Allergy/AdvReac Type Severity Reaction Status Date / Time No Known Allergies Allergy Verified 11/11/17 09:54 - Medications Medications: Current Medications Enoxaparin Sodium (Lovenox) 90 mg SC Q12 [facility] Famotidine (Pepcid) 20 mg PO DAILY [facility] Furosemide (Lasix) 40 mg IVP Q8H [facility] Last Admin: 11/11/17 14:41 Dose: Not Given Meclizine HCl (Antivert) 12.5 mg PO DAILY [facility] Last Admin: 11/11/17 14:46 Dose: 12.5 mg Memantine (Namenda) 5 mg PO DAILY [facility] Metoprolol Tartrate (Lopressor) 12.5 mg PO BID [facility] Last Admin: 11/11/17 17:53 Dose: 12.5 mg Midodrine (Proamatine) 5 mg PO DAILY [facility] Physical Exam - Constitutional Appears: Non-toxic - Head Exam Head Exam: NORMAL INSPECTION - Eye Exam Eye Exam: Normal appearance - ENT Exam ENT Exam: Mucous Membranes Moist - Neck Exam Neck exam: Positive for: Full Rom - Respiratory Exam Respiratory Exam: Decreased Breath Sounds - Cardiovascular Exam Cardiovascular Exam: REGULAR RHYTHM - GI/Abdominal Exam GI & Abdominal Exam: Normal Bowel Sounds - Rectal Exam Rectal Exam: Deferred - Extremities Exam Extremities exam: Negative for: pedal edema - Back Exam Back exam: NORMAL INSPECTION - Neurological Exam Neurological exam: Alert, Oriented x3 - Psychiatric Exam Psychiatric exam: Normal Affect - Skin Skin Exam: Normal Color Results - Vital Signs Recent Vital Signs: Last Vital Signs Temp 98.0 F 11/11/17 16:17 Pulse 76 01/03/18 16:17 Resp 20 11/11/17 16:17 BP 105/56 L 11/11/17 16:17 Pulse Ox 100 11/11/17 17:26 - Labs Result Diagrams: 11/11/17 09:58 11/11/17 09:58 Labs: Laboratory Results - last 24 hr 11/11/17 11/11/17 11/11/17 09:58 09:58 09:58 WBC 7.3 RBC 4.59 Hgb 12.1 Hct 38.4 MCV 83.7 D MCH 26.4 L MCHC 31.6 L RDW 17.8 H Plt Count 248 MPV 8.7 Neut % (Auto) 80.9 H Lymph % (Auto) 7.9 L [place] % (Auto) 9.9 Eos % (Auto) 0.6 Baso % (Auto) 0.7 Neut # 5.9 Lymph # 0.6 L [place] # 0.7 Eos # 0.0 Baso # 0.1 Neutrophils % (Manual) 84 H Lymphocytes % (Manual) 8 L Monocytes % (Manual) 7 Eosinophils % (Manual) 1 Platelet Estimate Normal Hypochromasia (manual) Slight Poikilocytosis (manual Slight Anisocytosis (manual) Slight Tear Drop Cells Slight Ovalocytes Slight PT 16.8 H INR 1.5 APTT 23 Sodium 135 Potassium 3.9 Chloride 102 Carbon Dioxide 25 Anion Gap 12 BUN 24 H Creatinine 1.0 Est GFR ( Amer) > 60 Est GFR (Non-Af Amer) > 60 Random Glucose 112 H Calcium 11.7 H Total Bilirubin 1.9 H AST 29 ALT 27 Alkaline Phosphatase 91 Troponin I 0.0510 NT-Pro-B Natriuret Pep 8160 H Total Protein 7.3 Albumin 4.0 Globulin 3.3 Albumin/Globulin Ratio 1.2 Digoxin 11/11/17 09:58 WBC RBC Hgb Hct MCV MCH MCHC RDW Plt Count MPV Neut % (Auto) Lymph % (Auto) [place] % (Auto) Eos % (Auto) Baso % (Auto) Neut # Lymph # [place] # Eos # Baso # Neutrophils % (Manual) Lymphocytes % (Manual) Monocytes % (Manual) Eosinophils % (Manual) Platelet Estimate Hypochromasia (manual) Poikilocytosis (manual Anisocytosis (manual) Tear Drop Cells Ovalocytes PT INR APTT Sodium Potassium Chloride Carbon Dioxide Anion Gap BUN Creatinine Est GFR ( Amer) Est GFR (Non-Af Amer) Random Glucose Calcium Total Bilirubin AST ALT Alkaline Phosphatase Troponin I NT-Pro-B Natriuret Pep Total Protein Albumin Globulin Albumin/Globulin Ratio Digoxin < 0.4 L - EKG Data EKG Interpreted by: Myself Assessment & Plan (1) Systolic dysfunction with acute on chronic heart failure Assessment and Plan: will need increased diuresis Status: Acute (2) CAD (coronary artery disease) Assessment and Plan: ASA therapy Status: Chronic (3) Chronic atrial fibrillation Assessment and Plan: will maintain coumadin, goal INR 2.5-3.5 given MVR Status: Chronic (4) H/O mitral valve replacement with mechanical valve Assessment and Plan: as above Status: Chronic
[2017-11-11] MEDS: Enoxaparin 100 mg Syringe SC SCH (21:21)
[2017-11-11] MEDS ORDERED: Furosemide 100 MG in Sodium Chloride 0.9% 90 ML IVP SCH (23:30)
[2017-11-12] MEDS ORDERED: Digoxin 250 mcg (0.25 mg) Tab PO STA (02:53)
[2017-11-12] MEDS ORDERED: Pneumococcal 23-Valent Vaccine IM ONE (10:00)
[2017-11-12] MEDS: Enoxaparin 100 mg Syringe SC SCH ×2 (10:08→21:57)
--- NOTE | 2017-11-12 10:17 | CP.PCM.PN ---
Subjective - Date & Time of Evaluation Date of Evaluation: 11/12/17 Time of Evaluation: 10:16 - Subjective Subjective: Medicine Progress Note: Dr Otoole Service Patient seen and examined at bedside. Patient states that he is still short of breath. He is speaking in full sentences however states that he is tired. Patient also refusing labs this morning, addressing machine operator attempted this afternoon, however was not able to draw the blood. Reports that he is urinating a normal amount. Patient currently denies headaches, dizziness, cp, palpitations, sob, abdominal pain, urinary symptoms, changes in bowel habits. Objective - Vital Signs/Intake and Output Vital Signs (last 24 hours): Temp Pulse Resp BP Pulse Ox 97.3 F L 140 H 20 111/82 95 11/12/17 08:26 11/12/17 08:26 11/12/17 00:28 11/12/17 08:26 11/12/17 00:28 - Medications Medications: Current Medications Enoxaparin Sodium (Lovenox) 90 mg SC Q12 [facility] Last Admin: 11/11/17 21:21 Dose: 90 mg Famotidine (Pepcid) 20 mg PO DAILY [facility] Furosemide 100 mg/ Sodium (Chloride) 100 mls @ 4 mls/hr IVP .Q24H JC; 4 MG/HR PRN Reason: Protocol Last Admin: 11/12/17 00:21 Dose: 4 mls/hr Meclizine HCl (Antivert) 12.5 mg PO DAILY [facility] Last Admin: 11/11/17 14:46 Dose: 12.5 mg Memantine (Namenda) 5 mg PO DAILY [facility] Metoprolol Tartrate (Lopressor) 12.5 mg PO BID [facility] Midodrine (Proamatine) 5 mg PO DAILY [facility] - Labs Labs: 11/11/17 09:58 11/11/17 09:58 PT 16.8 SECONDS (9.7-12.2) H 11/11/17 09:58 INR 1.5 11/11/17 09:58 APTT 23 SECONDS (21-34) 11/11/17 09:58 - Head Exam Head Exam: ATRAUMATIC, NORMAL INSPECTION - Eye Exam Eye Exam: EOMI, Normal appearance - ENT Exam ENT Exam: Mucous Membranes Moist - Neck Exam Neck Exam: Full ROM - Respiratory Exam Respiratory Exam: Decreased Breath Sounds, Rales, Respiratory Distress. absent : Accessory Muscle Use, Wheezes - Cardiovascular Exam Cardiovascular Exam: Tachycardia, +S1, +S2 - GI/Abdominal Exam GI & Abdominal Exam: Soft, Normal Bowel Sounds. absent: Firm, Guarding, Rigid, Tenderness - Rectal Exam Rectal Exam: Deferred - Extremities Exam Extremities Exam: absent: Calf Tenderness Additional comments: +2 pitting edema bilaterally - Neurological Exam Neurological Exam: Alert, Awake, Oriented x3 - Psychiatric Exam Psychiatric exam: Anxious, Normal Affect, Normal Mood - Skin Skin Exam: Dry, Normal Color, Warm Assessment and Plan - Assessment and Plan (Free Text) Assessment: Acute on chronic CHF exacerbation -CXR showed pulmonary venous congestion, small R pleural effusion, bibasilar atelectasis/infiltrate -Lasix 60 mg given in ED -Patient was started on Lasix drip last night -Order changed to Lasix 40mg q12h -Midodrine 5mg PO daily -Echo from 01/03/17 showed LVEF 12% -Repeat ECHO -BNP on admission: 8160 -Bipap prn (patient does refuse the bipap and tries to take it off, educated the patient on importance of keeping bipap on) -Cardiology on consult, Dr. Arguelles, help appreciated Chronic Atrial fibrillation, Mechanical Mitral Valve -Cardizem 20 mg given in ED, recieved Digoxin 0.25mg last night -Continue Metoprolol 12.5 mg po BID with holding parameters -INR: 1.5 on admission (subtherapeutic), goal INR 2.5-3.5 -Chadsvasc score: 4- High risk for stroke, Hasbled: 2- Moderate risk for bleeding -Lovenox 90 mg sc q12h -Coumadin 5mg daily -Cardiology on consult, Dr. Arguelles, help appreciated Vertigo -Midodrine 5mg po daily -Meclizine 12.5mg po daily Dementia -Memantine 5mg po daily Prophylaxis -Pepcid 20 mg po daily -SCDs contraindicated due to b/l LE edema Further management as per Dr Otoole
--- NOTE | 2017-11-12 10:47 | CP.PCM.PN ---
Subjective - Date & Time of Evaluation Date of Evaluation: 11/12/17 Time of Evaluation: 10:00 - Subjective Subjective: patient remains dyspneic. Objective - Vital Signs/Intake and Output Vital Signs (last 24 hours): Temp Pulse Resp BP Pulse Ox 97.3 F L 140 H 20 111/82 95 11/12/17 08:26 11/12/17 08:26 11/12/17 00:28 11/12/17 08:26 11/12/17 00:28 - Medications Medications: Current Medications Enoxaparin Sodium (Lovenox) 90 mg SC Q12 [facility] Last Admin: 11/11/17 21:21 Dose: 90 mg Famotidine (Pepcid) 20 mg PO DAILY [facility] Furosemide 100 mg/ Sodium (Chloride) 100 mls @ 4 mls/hr IVP .Q24H J[facility]; 4 MG/HR PRN Reason: Protocol Last Admin: 11/12/17 00:21 Dose: 4 mls/hr Meclizine HCl (Antivert) 12.5 mg PO DAILY [facility] Last Admin: 11/11/17 14:46 Dose: 12.5 mg Memantine (Namenda) 5 mg PO DAILY [facility] Metoprolol Tartrate (Lopressor) 12.5 mg PO BID [facility] Midodrine (Proamatine) 5 mg PO DAILY [facility] - Labs Labs: 11/11/17 09:58 11/11/17 09:58 PT 16.8 SECONDS (9.7-12.2) H 11/11/17 09:58 INR 1.5 11/11/17 09:58 APTT 23 SECONDS (21-34) 11/11/17 09:58 - Constitutional Appears: Non-toxic - Head Exam Head Exam: NORMAL INSPECTION - Eye Exam Eye Exam: Normal appearance - ENT Exam ENT Exam: Mucous Membranes Moist - Neck Exam Neck Exam: Full ROM - Respiratory Exam Respiratory Exam: Decreased Breath Sounds, Rales - Cardiovascular Exam Cardiovascular Exam: REGULAR RHYTHM - GI/Abdominal Exam GI & Abdominal Exam: Normal Bowel Sounds - Rectal Exam Rectal Exam: Deferred - Extremities Exam Extremities Exam: Pedal Edema - Back Exam Back Exam: NORMAL INSPECTION - Neurological Exam Neurological Exam: Alert - Psychiatric Exam Psychiatric exam: Normal Affect - Skin Skin Exam: Normal Color Assessment and Plan (1) Systolic dysfunction with acute on chronic heart failure Assessment & Plan: will increase diuresis Status: Acute (2) CAD (coronary artery disease) Assessment & Plan: asa therapy Status: Chronic (3) Chronic atrial fibrillation Assessment & Plan: maintain coumadin. Status: Chronic (4) H/O mitral valve replacement with mechanical valve Assessment & Plan: goal INR 2.5-3.5 Status: Chronic
--- NOTE | 2017-11-12 12:55 | RAD ---
HISTORY: sob COMPARISON: Chest x-ray performed 11/11/17 TECHNIQUE: Chest, one view. FINDINGS: LUNGS: Pulmonary venous congestion. Small right pleural effusion. Bibasilar atelectasis/infiltrates. No definite pneumothorax. CARDIOVASCULAR: Median sternotomy wires. Left-sided AICD. Cardiomegaly. Prosthetic cardiac valve. OSSEOUS STRUCTURES: Osseous demineralization. Degenerative changes. VISUALIZED UPPER ABDOMEN: Unremarkable. OTHER FINDINGS: None. IMPRESSION: Pulmonary venous congestion. Small right pleural effusion. Bibasilar atelectasis/infiltrates. Median sternotomy wires. Left-sided AICD. Cardiomegaly. Prosthetic cardiac valve.
--- NOTE | 2017-11-12 14:48 | CARD ---
APPROVED REPORT EKG Measurement Heart [id number] <Conclusion> Atrial fibrillation with rapid ventricular response Left axis deviation Right bundle branch block Inferior infarct, age undetermined T wave abnormality, consider lateral ischemia Abnormal ECG
[2017-11-12] MEDS ORDERED: Furosemide 100 MG in Dextrose 5% In Water 90 ML IVP SCH (18:45)
[2017-11-12] MEDS: Furosemide 100 MG in Sodium Chloride 0.9% 90 ML IVP SCH (19:43)
[2017-11-12] MEDS ORDERED: MethylPREDNISolone 40 mg Vial IM STA (23:02)
[2017-11-12] MEDS: MethylPREDNISolone 40 mg Vial IV SCH (23:35)
[2017-11-13] MEDS: MethylPREDNISolone 40 mg Vial IV SCH ×4 (04:25→23:16)
--- NOTE | 2017-11-13 07:21 | CP.PCM.PN ---
Subjective - Date & Time of Evaluation Date of Evaluation: 11/13/17 Time of Evaluation: 07:16 - Subjective Subjective: PGY-[address] Otoole. No acute events overnight. Patient refused his morning lab work yesterday. He also occasionally refuses bipap. Patient states that he is still short of breath. He is speaking in full sentences however states that he is tired. Patient currently denies headaches, dizziness, cp, palpitations, sob, abdominal pain, urinary symptoms, changes in bowel habits. Objective - Vital Signs/Intake and Output Vital Signs (last 24 hours): Temp Pulse Resp BP Pulse Ox 97.1 F L 105 H 22 112/82 96 11/13/17 00:00 11/13/17 00:00 11/13/17 00:00 11/13/17 00:00 11/13/17 00:00 - Medications Medications: Current Medications Enoxaparin Sodium (Lovenox) 90 mg SC Q12 [facility] Last Admin: 11/12/17 21:57 Dose: 90 mg Famotidine (Pepcid) 20 mg PO DAILY [facility] Last Admin: 11/12/17 10:07 Dose: 20 mg Furosemide 100 mg/ Sodium (Chloride) 100 mls @ 4 mls/hr IVP .Q24H [facility] PRN Reason: 4 MG/HR Last Admin: 11/12/17 19:43 Dose: 4 mls/hr Meclizine HCl (Antivert) 12.5 mg PO DAILY [facility] Last Admin: 11/12/17 10:07 Dose: 12.5 mg Memantine (Namenda) 5 mg PO DAILY [facility] Last Admin: 11/12/17 10:07 Dose: 5 mg Methylprednisolone (Solu-Medrol) 40 mg IV Q6H [facility] Last Admin: 11/13/17 04:25 Dose: Not Given Metoprolol Tartrate (Lopressor) 12.5 mg PO BID [facility] Last Admin: 11/12/17 18:42 Dose: 12.5 mg Midodrine (Proamatine) 5 mg PO DAILY [facility] Last Admin: 11/12/17 10:07 Dose: 5 mg - Labs Labs: 11/11/17 09:58 11/11/17 09:58 PT 16.8 SECONDS (9.7-12.2) H 11/11/17 09:58 INR 1.5 11/11/17 09:58 APTT 23 SECONDS (21-34) 11/11/17 09:58 - Additional Findings Additional findings: - Head Exam Head Exam: ATRAUMATIC, NORMAL INSPECTION - Eye Exam Eye Exam: EOMI, Normal appearance - ENT Exam ENT Exam: Mucous Membranes Moist - Neck Exam Neck Exam: Full ROM - Respiratory Exam Respiratory Exam: Decreased Breath Sounds, Rales, Respiratory Distress. absent : Accessory Muscle Use, Wheezes - Cardiovascular Exam Cardiovascular Exam: Tachycardia, +S1, +S2 - GI/Abdominal Exam GI & Abdominal Exam: Soft, Normal Bowel Sounds. absent: Firm, Guarding, Rigid, Tenderness - Rectal Exam Rectal Exam: Deferred - Extremities Exam Extremities Exam: absent: Calf Tenderness Additional comments: +2 pitting edema bilaterally - Neurological Exam Neurological Exam: Alert, Awake, Oriented x3 - Psychiatric Exam Psychiatric exam: Anxious, Normal Affect, Normal Mood - Skin Skin Exam: Dry, Normal Color, Warm Assessment and Plan - Assessment and Plan (Free Text) Assessment: Systolic dysfunction with acute on chronic heart failure -Cardiology on consult, Dr. Arguelles, help appreciated -Bipap prn (patient does refuse the bipap and tries to take it off, educated the patient on importance of keeping bipap on) -BNP on admission: 8160 -Monitor Ins/Outs Imaging: -CXR 11/12/17: showed pulmonary venous congestion, small R pleural effusion, bibasilar atelectasis/infiltrate -Echo from 01/03/17 showed LVEF 12% -F/U Repeat ECHO Meds: -Lasix 60 mg given in ED -Patient was started on Lasix drip 11/12/17 -Not on ACEi/ARB due to chronic hypotension -Metoprolol Tartrate 12.5mg PO BID Chronic Atrial fibrillation w/ AICD -Cardiology on consult, Dr. Arguelles, help appreciated -Chadsvasc score: 4- High risk for stroke, Hasbled: 2- Moderate risk for bleeding Meds: -Cardizem 20 mg given in ED, recieved one dose Digoxin 0.25mg 11/11/17 -Continue Metoprolol 12.5 mg po BID with holding parameters -Lovenox 90 mg sc q12h Mechanical Mitral Valve -INR: 1.5 on admission (subtherapeutic), goal INR 2.5-3.5 -Coumadin 5mg daily Coronary Artery Disease Aspirin 81mg PO QD History of COPD -Solumedrol 40mg IV QID -Will not start Duonebs due to high HR Vertigo -Con't home med Meclizine 12.5mg po daily Orthostatic Hypotension -Con't home med Midodrine 5mg po daily Dementia -Con't home med Memantine 5mg po daily Prophylaxis -Pepcid 20 mg po daily -SCDs contraindicated due to b/l LE edema -Already on Lovenox 90mg SC BID -Heart Healthy Diet Further management as per Dr Otoole
[2017-11-13 08:23] LABS: BASO % 0.3 % (0.0-2.0); EOS % 0.1 % (0.0-4.0); HEMOGLOBIN 12.1 g/dL (12.0-18.0); INR 1.7; LYMPH # 0.4 K/uL (1.0-4.3); LYMPH % 7.7 % (20.0-40.0); MEAN CELL VOLUME 82.7 fL (80.0-94.0); MEAN CORPUSCULAR HEMOGLOBIN 27.1 pg (27.0-31.0); MEAN CORPUSCULAR HGB CONC 32.7 g/dL (33.0-37.0); MEAN PLATELET VOLUME 8.8 fL (7.2-11.7); MONO # 0.2 K/uL (0.0-0.8); MONO % 3.2 % (0.0-10.0); NEUT # 4.2 K/uL (1.8-7.0); NEUT % 88.7 % (50.0-75.0); NRBC % 0.1 % (0.0-2.0); PLATELET COUNT 226 K/uL (130-400); PROTHROMBIN TIME 19.1 SECONDS (9.7-12.2); RBC 4.46 Mil/uL (4.40-5.90); RED CELL DISTRIBUTION WIDTH 17.4 % (11.5-14.5); WHITE BLOOD COUNT 4.7 K/uL (4.8-10.8)
--- NOTE | 2017-11-13 08:30 | CP.PCM.PN ---
Subjective - Date & Time of Evaluation Date of Evaluation: 11/13/17 Time of Evaluation: 08:10 - Subjective Subjective: patient has less dyspnea Objective - Vital Signs/Intake and Output Vital Signs (last 24 hours): Temp Pulse Resp BP Pulse Ox 97.1 F L 105 H 22 112/82 96 11/13/17 00:00 11/13/17 00:00 11/13/17 00:00 11/13/17 00:00 11/13/17 00:00 - Medications Medications: Current Medications Aspirin (Aspirin Chewable) 81 mg PO DAILY [facility] Enoxaparin Sodium (Lovenox) 90 mg SC Q12 [facility] Last Admin: 11/12/17 21:57 Dose: 90 mg Famotidine (Pepcid) 20 mg PO DAILY [facility] Last Admin: 11/12/17 10:07 Dose: 20 mg Furosemide 100 mg/ Sodium (Chloride) 100 mls @ 4 mls/hr IVP .Q24H [facility] PRN Reason: 4 MG/HR Last Admin: 11/12/17 19:43 Dose: 4 mls/hr Meclizine HCl (Antivert) 12.5 mg PO DAILY [facility] Last Admin: 11/12/17 10:07 Dose: 12.5 mg Memantine (Namenda) 5 mg PO DAILY [facility] Last Admin: 11/12/17 10:07 Dose: 5 mg Methylprednisolone (Solu-Medrol) 40 mg IV Q6H [facility] Last Admin: 11/13/17 04:25 Dose: Not Given Metoprolol Tartrate (Lopressor) 12.5 mg PO BID [facility] Last Admin: 11/12/17 18:42 Dose: 12.5 mg Midodrine (Proamatine) 5 mg PO DAILY [facility] Last Admin: 11/12/17 10:07 Dose: 5 mg Warfarin Sodium (Coumadin) 5 mg PO 1800 [facility] Stop: 11/13/17 18:01 - Labs Labs: 11/13/17 07:58 11/11/17 09:58 PT 16.8 SECONDS (9.7-12.2) H 11/11/17 09:58 INR 1.5 11/11/17 09:58 APTT 23 SECONDS (21-34) 11/11/17 09:58 - Constitutional Appears: Non-toxic - Head Exam Head Exam: NORMAL INSPECTION - Eye Exam Eye Exam: Normal appearance - ENT Exam ENT Exam: Mucous Membranes Moist - Neck Exam Neck Exam: Full ROM - Respiratory Exam Respiratory Exam: NORMAL BREATHING PATTERN - Cardiovascular Exam Cardiovascular Exam: REGULAR RHYTHM - GI/Abdominal Exam GI & Abdominal Exam: Normal Bowel Sounds - Rectal Exam Rectal Exam: Deferred - Extremities Exam Extremities Exam: absent: Pedal Edema - Back Exam Back Exam: NORMAL INSPECTION - Neurological Exam Neurological Exam: Alert - Psychiatric Exam Psychiatric exam: Normal Affect - Skin Skin Exam: Normal Color Assessment and Plan (1) Systolic dysfunction with acute on chronic heart failure Assessment & Plan: continue diuresis Status: Acute (2) CAD (coronary artery disease) Assessment & Plan: medical therapy Status: Chronic (3) Chronic atrial fibrillation Assessment & Plan: conitnue coumadin Status: Chronic (4) H/O mitral valve replacement with mechanical valve Assessment & Plan: continue couamdin Status: Chronic
[2017-11-13 08:44] LABS: ALB/GLOB RATIO 1.2 (1.0-2.1); ALBUMIN 3.8 g/dL (3.5-5.0); ALT/SGPT 39 U/L (21-72); AST/SGOT 44 U/L (17-59); BLOOD UREA NITROGEN 31 mg/dL (9-20); CALCIUM 11.7 mg/dl (8.6-10.4); GFR AFRICAN-AMERICAN > 60; GFR NON-AFRICAN AMERICAN > 60; MAGNESIUM 1.8 mg/dL (1.6-2.3)
[2017-11-13 09:31] LABS: MONOCYTE 3 % (0-10); TOTAL CELLS COUNTED 100
[2017-11-13 09:32] LABS: ANISOCYTOSIS SLIGHT; LYMPHOCYTE 7 % (20-40); MICROCYTOSIS SLIGHT; NEUTROPHIL 90 % (50-75); OVALOCYTES SLIGHT; PLATELET ESTIMATE NORMAL (NORMAL); POIKILOCYTOSIS SLIGHT
[2017-11-13] MEDS: Enoxaparin 100 mg Syringe SC SCH ×2 (10:47→22:34)
[2017-11-13] MEDS: Furosemide 100 MG in Sodium Chloride 0.9% 90 ML IVP SCH (19:34)
[2017-11-14] MEDS: MethylPREDNISolone 40 mg Vial IV SCH ×4 (04:00→23:24)
[2017-11-14 08:36] LABS: INR 1.8; PROTHROMBIN TIME 21.1 SECONDS (9.7-12.2)
--- NOTE | 2017-11-14 08:38 | CP.PCM.PN ---
Subjective - Date & Time of Evaluation Date of Evaluation: 11/14/17 Time of Evaluation: 09:00 - Subjective Subjective: Dr. Otoole progress note: Patient is seen and examined in room. He is resting comfortably in room is breathing well on room air. He has agreed that he needs BIPAP and that he needs medication through the IV. Objective - Vital Signs/Intake and Output Vital Signs (last 24 hours): Temp Pulse Resp BP Pulse Ox 97.7 F 101 H 22 113/81 97 11/13/17 23:41 11/14/17 00:00 11/13/17 23:41 11/13/17 23:41 11/13/17 23:41 Intake and Output: 11/14/17 11/14/17 06:59 18:59 Intake Total 100 Balance 100 - Medications Medications: Current Medications Aspirin (Aspirin Chewable) 81 mg PO DAILY [facility] Last Admin: 11/13/17 10:46 Dose: 81 mg Enoxaparin Sodium (Lovenox) 90 mg SC Q12 [facility] Last Admin: 11/13/17 22:34 Dose: 90 mg Famotidine (Pepcid) 20 mg PO DAILY [facility] Last Admin: 11/13/17 10:47 Dose: 20 mg Furosemide 100 mg/ Sodium (Chloride) 100 mls @ 4 mls/hr IVP .Q24H [facility] PRN Reason: 4 MG/HR Last Admin: 11/13/17 19:34 Dose: Not Given Meclizine HCl (Antivert) 12.5 mg PO DAILY [facility] Last Admin: 11/13/17 10:47 Dose: 12.5 mg Memantine (Namenda) 5 mg PO DAILY [facility] Last Admin: 11/13/17 10:46 Dose: 5 mg Methylprednisolone (Solu-Medrol) 40 mg IV Q6H [facility] Last Admin: 11/14/17 04:00 Dose: Not Given Metoprolol Tartrate (Lopressor) 12.5 mg PO BID [facility] Last Admin: 11/13/17 19:07 Dose: 12.5 mg Midodrine (Proamatine) 5 mg PO DAILY [facility] Last Admin: 11/13/17 10:46 Dose: 5 mg Warfarin Sodium (Coumadin) 5 mg PO 1800 [facility] Stop: 11/14/17 18:01 - Labs Labs: 11/13/17 07:58 11/13/17 07:58 PT 19.1 SECONDS (9.7-12.2) H 11/13/17 07:58 INR 1.7 11/13/17 07:58 APTT 23 SECONDS (21-34) 11/11/17 09:58 - Constitutional Appears: Non-toxic, No Acute Distress - Eye Exam Eye Exam: Normal appearance - Respiratory Exam Respiratory Exam: Decreased Breath Sounds. absent: Rales, Rhonchi, Wheezes - Cardiovascular Exam Cardiovascular Exam: REGULAR RHYTHM, RRR, +S1, +S2. absent: Gallop, Rubs - GI/Abdominal Exam GI & Abdominal Exam: Soft, Normal Bowel Sounds. absent: Tenderness - Extremities Exam Extremities Exam: Pedal Edema. absent: Normal Inspection - Neurological Exam Neurological Exam: Alert - Skin Skin Exam: Normal Color, Warm Assessment and Plan - Assessment and Plan (Free Text) Assessment: Systolic dysfunction with acute on chronic heart failure 11/14: Will get a PICC line so patient can get IV medications, will given PO lasix. BIPAP as needed. Echo pending. Cardiology on consult, Dr. Arguelles, help appreciated -Bipap prn (patient does refuse the bipap and tries to take it off, educated the patient on importance of keeping bipap on) -BNP on admission: 8160 -Monitor Ins/Outs Imaging: -CXR 11/12/17: showed pulmonary venous congestion, small R pleural effusion, bibasilar atelectasis/infiltrate -Echo from 01/03/17 showed LVEF 12% -F/U Repeat ECHO Meds: -Lasix 60 mg given in ED -Patient was started on Lasix drip 11/12/17 -Not on ACEi/ARB due to chronic hypotension -Metoprolol Tartrate 12.5mg PO BID Chronic Atrial fibrillation w/ AICD -Cardiology on consult, Dr. Arguelles, help appreciated -Chadsvasc score: 4- High risk for stroke, Hasbled: 2- Moderate risk for bleeding Meds: -Cardizem 20 mg given in ED, recieved one dose Digoxin 0.25mg 11/11/17 -Continue Metoprolol 12.5 mg po BID with holding parameters -Lovenox 90 mg sc q12h Mechanical Mitral Valve -11/14: Coumadin given, continue to bridge with theraputic Lovenox. INR: 1.5 on admission (subtherapeutic), goal INR 2.5-3.5 -Coumadin 5mg daily Coronary Artery Disease Aspirin 81mg PO QD History of COPD -Solumedrol 40mg IV QID -Will not start Duonebs due to high HR Vertigo -Con't home med Meclizine 12.5mg po daily Orthostatic Hypotension -Con't home med Midodrine 5mg po daily Dementia -Con't home med Memantine 5mg po daily Prophylaxis -Pepcid 20 mg po daily -SCDs contraindicated due to b/l LE edema -Already on Lovenox 90mg SC BID -Heart Healthy Diet Further management as per Dr Otoole
[2017-11-14] MEDS: Enoxaparin 100 mg Syringe SC SCH ×2 (10:18→21:16)
[2017-11-14] MEDS: Furosemide 100 MG in Sodium Chloride 0.9% 90 ML IVP SCH (19:00)
[2017-11-15] MEDS: MethylPREDNISolone 40 mg Vial IV SCH ×4 (06:45→21:48)
--- NOTE | 2017-11-15 09:57 | CP.PCM.PN ---
Subjective - Date & Time of Evaluation Date of Evaluation: 11/15/17 Time of Evaluation: 11:00 - Subjective Subjective: Dr. Otoole note: Patient is seen and examined in room. Patient is on BIPAP but in no distress. I set patient up in bed and explained to him his need for sitting up to help him breath. Objective - Vital Signs/Intake and Output Vital Signs (last 24 hours): Temp Pulse Resp BP Pulse Ox 97.3 F L 119 H 20 117/85 98 11/14/17 23:30 11/14/17 23:30 11/14/17 23:30 11/14/17 23:30 11/14/17 23:30 - Medications Medications: Current Medications Aspirin (Aspirin Chewable) 81 mg PO DAILY [facility] Last Admin: 11/14/17 10:17 Dose: 81 mg Enoxaparin Sodium (Lovenox) 90 mg SC Q12 [facility] Last Admin: 11/14/17 21:16 Dose: 90 mg Famotidine (Pepcid) 20 mg PO DAILY [facility] Last Admin: 11/14/17 10:19 Dose: 20 mg Furosemide (Lasix) 20 mg PO BID [facility] Last Admin: 11/14/17 21:16 Dose: 20 mg Furosemide 100 mg/ Sodium (Chloride) 100 mls @ 4 mls/hr IVP .Q24H [facility] PRN Reason: 4 MG/HR Last Admin: 11/14/17 19:00 Dose: Not Given Meclizine HCl (Antivert) 12.5 mg PO DAILY [facility] Last Admin: 11/14/17 10:16 Dose: 12.5 mg Memantine (Namenda) 5 mg PO DAILY [facility] Last Admin: 11/14/17 10:19 Dose: 5 mg Methylprednisolone (Solu-Medrol) 40 mg IV Q6H [facility] Last Admin: 11/15/17 06:45 Dose: Not Given Metoprolol Tartrate (Lopressor) 12.5 mg PO BID [facility] Last Admin: 11/14/17 17:37 Dose: 12.5 mg Midodrine (Proamatine) 5 mg PO DAILY [facility] Last Admin: 11/14/17 10:20 Dose: 5 mg - Labs Labs: 11/13/17 07:58 11/13/17 07:58 PT 21.1 SECONDS (9.7-12.2) H 11/14/17 08:23 INR 1.8 11/14/17 08:23 APTT 23 SECONDS (21-34) 11/11/17 09:58 - Constitutional Appears: Non-toxic, No Acute Distress - Eye Exam Eye Exam: Normal appearance Pupil Exam: NORMAL ACCOMODATION - Respiratory Exam Respiratory Exam: Clear to Ausculation Bilateral. absent: Decreased Breath Sounds, Rales, Rhonchi, Wheezes - Cardiovascular Exam Cardiovascular Exam: REGULAR RHYTHM, RRR, +S1, +S2, Murmur. absent: Gallop, Rubs - GI/Abdominal Exam GI & Abdominal Exam: Soft, Normal Bowel Sounds. absent: Tenderness - Extremities Exam Extremities Exam: Normal Inspection. absent: Pedal Edema - Back Exam Back Exam: NORMAL INSPECTION - Neurological Exam Neurological Exam: Oriented x3 - Psychiatric Exam Psychiatric exam: Normal Affect, Normal Mood - Skin Skin Exam: Normal Color, Warm Assessment and Plan - Assessment and Plan (Free Text) Assessment: Systolic dysfunction with acute on chronic heart failure 11/15: Patient will need to continue BIPAP as needed, Echo pending, Lasix PO for now until we get PICC line. 11/14: Will get a PICC line so patient can get IV medications, will given PO lasix. BIPAP as needed. Echo pending. Cardiology on consult, Dr. Arguelles, help appreciated -Bipap prn (patient does refuse the bipap and tries to take it off, educated the patient on importance of keeping bipap on) -BNP on admission: 8160 -Monitor Ins/Outs Imaging: -CXR 11/12/17: showed pulmonary venous congestion, small R pleural effusion, bibasilar atelectasis/infiltrate -Echo from 01/03/17 showed LVEF 12% -F/U Repeat ECHO Meds: -Lasix 60 mg given in ED -Patient was started on Lasix drip 11/12/17 -Not on ACEi/ARB due to chronic hypotension -Metoprolol Tartrate 12.5mg PO BID Chronic Atrial fibrillation w/ AICD -Cardiology on consult, Dr. Arguelles, help appreciated -Chadsvasc score: 4- High risk for stroke, Hasbled: 2- Moderate risk for bleeding Meds: -Cardizem 20 mg given in ED, recieved one dose Digoxin 0.25mg 11/11/17 -Continue Metoprolol 12.5 mg po BID with holding parameters -Lovenox 90 mg sc q12h Mechanical Mitral Valve -11/15: continue Coumadin, INR 2.3. Continue to bridge with therapeutic Lovenox. INR GOAL IS 2.5-3.5. 11/14: Coumadin given, continue to bridge with theraputic Lovenox. INR: 1.5 on admission (subtherapeutic), goal INR 2.5-3.5 -Coumadin 5mg daily Coronary Artery Disease Aspirin 81mg PO QD History of COPD -Solumedrol 40mg IV QID -Will not start Duonebs due to high HR Vertigo -Con't home med Meclizine 12.5mg po daily Orthostatic Hypotension -Con't home med Midodrine 5mg po daily Dementia -Con't home med Memantine 5mg po daily Prophylaxis -Pepcid 20 mg po daily -SCDs contraindicated due to b/l LE edema -Already on Lovenox 90mg SC BID -Heart Healthy Diet Further management as per Dr Otoole
[2017-11-15] MEDS: Enoxaparin 100 mg Syringe SC SCH ×2 (10:48→22:29)
--- NOTE | 2017-11-15 15:04 | CP.PCM.CON ---
History of Present Illness - History of Present Illness History of Present Illness: reason for consultation: shortness of breath 71-year-old male with VT, atrial fibrillation, CHF, long history of smoking was brought to emergency room for chest pain and shortness of breath. Patient also complaining of cough and swelling of legs. patient was placed on BiPAP for respiratory distress. Denies fever or chills. patient being treated for CHF. PMHx: VT, Atrial fibrillation, CAD, CHF, HTN PSHx: CABG in 2009 (patient unsure of exact year), mechanical valve placement Medications: Midodrine 5 mg, Memantine 5 mg, Meclizine 12.5 mg, Aspirin 81 mg, Metoprolol 25 mg Social Hx: Smokes cigarettes 1 pack/week since age 13, used to drink alcohol in his 20s, denies any recreational drug use. Lives at home with . Allergies: NKDA Review of Systems - Review of Systems All systems: reviewed and no additional remarkable complaints except (shortness of breath and cough) Past Patient History - Infectious Disease Hx of Infectious Diseases: None - Past Medical History & Family History Past Medical History?: Yes - Past Social History Smoking Status: Heavy Smoker > 10 Cigarettes Daily - CARDIAC Hx Atrial Fibrillation: Yes Hx Cardia Arrhythmia: Yes Hx Congestive Heart Failure: Yes Hx Hypertension: Yes Hx Pacemaker: Yes - PULMONARY Hx Chronic Obstructive Pulmonary Disease (COPD): Yes - NEUROLOGICAL Hx Alzheimer's Disease: Yes Hx Dementia: Yes - MUSCULOSKELETAL/RHEUMATOLOGICAL Hx Falls: No - PSYCHIATRIC Hx Substance Use: No - SURGICAL HISTORY Hx Coronary Artery Bypass Graft: Yes (4 yrs ago) - ANESTHESIA Hx Anesthesia: Yes Hx Anesthesia Reactions: No Hx Malignant Hyperthermia: No Meds Allergies/Adverse Reactions: Allergies Allergy/AdvReac Type Severity Reaction Status Date / Time No Known Allergies Allergy Verified 11/11/17 09:54 - Medications Medications: Current Medications Aspirin (Aspirin Chewable) 81 mg PO DAILY [facility] Last Admin: 11/15/17 10:43 Dose: 81 mg Enoxaparin Sodium (Lovenox) 90 mg SC Q12 [facility] Last Admin: 11/15/17 10:48 Dose: 90 mg Famotidine (Pepcid) 20 mg PO DAILY [facility] Last Admin: 11/15/17 10:43 Dose: 20 mg Furosemide (Lasix) 20 mg PO BID [facility] Last Admin: 11/15/17 10:44 Dose: 20 mg Meclizine HCl (Antivert) 12.5 mg PO DAILY [facility] Last Admin: 11/15/17 10:48 Dose: 12.5 mg Memantine (Namenda) 5 mg PO DAILY [facility] Last Admin: 11/15/17 10:43 Dose: 5 mg Methylprednisolone (Solu-Medrol) 40 mg IV Q6H [facility] Last Admin: 11/15/17 10:50 Dose: Not Given Metoprolol Tartrate (Lopressor) 25 mg PO BID [facility] Midodrine (Proamatine) 5 mg PO DAILY [facility] Last Admin: 11/15/17 10:48 Dose: 5 mg Warfarin Sodium (Coumadin) 5 mg PO 1800 [facility] Stop: 11/15/17 18:01 Physical Exam - Head Exam Head Exam: ATRAUMATIC, NORMOCEPHALIC - Eye Exam Eye Exam: Normal appearance - ENT Exam ENT Exam: Mucous Membranes Moist - Neck Exam Neck exam: Positive for: Normal Inspection - Respiratory Exam Respiratory Exam: Rales - Cardiovascular Exam Cardiovascular Exam: Irregular Rhythm - GI/Abdominal Exam GI & Abdominal Exam: Normal Bowel Sounds, Soft Results - Vital Signs Recent Vital Signs: Last Vital Signs Temp 97.3 F L 11/14/17 23:30 Pulse 119 H 11/14/17 23:30 Resp 20 11/14/17 23:30 BP 109/67 11/15/17 10:44 Pulse Ox 98 11/14/17 23:30 - Labs Result Diagrams: 11/13/17 07:58 11/13/17 07:58 Assessment & Plan (1) Acute exacerbation of CHF (congestive heart failure) Status: Acute Comment: continue IV Lasix. Cardiology workup (2) COPD (chronic obstructive pulmonary disease) Status: Acute Comment: Patient with known history of smoking. Start nebulizer treatment. Pulmonary function test once patient is stable. Continue BiPAP (3) Chronic atrial fibrillation Status: Chronic
[2017-11-15 18:09] LABS: INR 2.3
[2017-11-15 18:11] LABS: PROTHROMBIN TIME 26.5 SECONDS (9.7-12.2)
[2017-11-15] MEDS: Budesonide 0.5 mg/2 ml Inhal Susp UD INH SCH (21:00)
[2017-11-15] MEDS: Albuterol-Ipratrop 3 mg / 0.5 (3 ml) UD INH SCH (21:00)
[2017-11-16] MEDS: Albuterol-Ipratrop 3 mg / 0.5 (3 ml) UD INH SCH ×4 (02:16→19:13)
[2017-11-16] MEDS: MethylPREDNISolone 40 mg Vial IV SCH ×3 (05:21→21:20)
[2017-11-16] MEDS: Budesonide 0.5 mg/2 ml Inhal Susp UD INH SCH ×2 (07:16→19:12)
[2017-11-16 08:52] LABS: BASO % 0.5 % (0.0-2.0); EOS % 0.6 % (0.0-4.0); HEMOGLOBIN 11.9 g/dL (12.0-18.0); LYMPH # 0.9 K/uL (1.0-4.3); LYMPH % 11.9 % (20.0-40.0); MEAN CELL VOLUME 82.3 fL (80.0-94.0); MEAN CORPUSCULAR HEMOGLOBIN 25.6 pg (27.0-31.0); MEAN CORPUSCULAR HGB CONC 31.1 g/dL (33.0-37.0); MEAN PLATELET VOLUME 8.5 fL (7.2-11.7); MONO % 12.9 % (0.0-10.0); NEUT # 5.5 K/uL (1.8-7.0); NEUT % 74.1 % (50.0-75.0); NRBC % 0.2 % (0.0-2.0); RBC 4.66 Mil/uL (4.40-5.90); RED CELL DISTRIBUTION WIDTH 17.4 % (11.5-14.5)
[2017-11-16 08:53] LABS: WHITE BLOOD COUNT 7.4 K/uL (4.8-10.8)
[2017-11-16 09:09] LABS: INR 2.8
[2017-11-16 09:10] LABS: PROTHROMBIN TIME 33.2 SECONDS (9.7-12.2)
[2017-11-16 09:34] LABS: ALB/GLOB RATIO 1.3 (1.0-2.1); ALBUMIN 3.9 g/dL (3.5-5.0); ALT/SGPT 236 U/L (21-72); AST/SGOT 127 U/L (17-59); BLOOD UREA NITROGEN 47 mg/dL (9-20); CALCIUM 11.3 mg/dl (8.6-10.4); GFR AFRICAN-AMERICAN > 60; GFR NON-AFRICAN AMERICAN 60; MAGNESIUM 2.1 mg/dL (1.6-2.3)
--- NOTE | 2017-11-16 11:40 | CP.PCM.PN ---
Subjective - Date & Time of Evaluation Date of Evaluation: 11/16/17 Time of Evaluation: 11:38 - Subjective Subjective: Medicine Progress Note: Dr Otoole Service Patient seen and examined at bedside. Per nursing no acute events overnight. Patient is refusing telemetry. Patient asking where he is and why is he still here. States breathing is improving and states that he is thirsty. Denies headaches, dizziness, cp, palpitations, sob, abdominal pain, urinary symptoms, changes in bowel habits. Objective - Vital Signs/Intake and Output Vital Signs (last 24 hours): Temp Pulse Resp BP Pulse Ox 97.2 F L 106 H 20 118/74 98 11/16/17 07:00 11/16/17 07:00 11/16/17 07:00 11/16/17 11:02 11/16/17 07:00 - Medications Medications: Current Medications Albuterol/Ipratropium (Duoneb 3 Mg/0.5 Mg (3 Ml) Ud) 3 ml INH RQ6 [facility] Last Admin: 11/16/17 07:16 Dose: Not Given Aspirin (Aspirin Chewable) 81 mg PO DAILY [facility] Last Admin: 11/16/17 11:02 Dose: 81 mg Budesonide (Pulmicort Respules) 0.5 mg INH RQ12 [facility] Last Admin: 11/16/17 07:16 Dose: Not Given Famotidine (Pepcid) 20 mg PO DAILY [facility] Last Admin: 11/16/17 11:02 Dose: 20 mg Furosemide (Lasix) 20 mg IVP BID [facility] Meclizine HCl (Antivert) 12.5 mg PO DAILY [facility] Last Admin: 11/15/17 10:48 Dose: 12.5 mg Memantine (Namenda) 5 mg PO DAILY [facility] Last Admin: 11/16/17 11:03 Dose: 5 mg Methylprednisolone (Solu-Medrol) 40 mg IV Q8 [facility] Last Admin: 11/16/17 05:21 Dose: Not Given Metoprolol Tartrate (Lopressor) 25 mg PO BID [facility] Last Admin: 11/16/17 11:02 Dose: 25 mg Midodrine (Proamatine) 5 mg PO DAILY [facility] Last Admin: 11/15/17 10:48 Dose: 5 mg - Labs Labs: 11/16/17 08:44 11/16/17 08:44 PT 33.2 SECONDS (9.7-12.2) H* D 11/16/17 09:10 INR 2.8 D 11/16/17 09:10 APTT 23 SECONDS (21-34) 11/11/17 09:58 - Additional Findings Additional findings: - Constitutional Appears: Non-toxic, No Acute Distress - Eye Exam Eye Exam: Normal appearance Pupil Exam: NORMAL ACCOMODATION - Respiratory Exam Respiratory Exam: Decreased breath sounds absent: Rales, Rhonchi, Wheezes - Cardiovascular Exam Cardiovascular Exam: REGULAR RHYTHM, RRR, +S1, +S2, Murmur. absent: Gallop, Rubs - GI/Abdominal Exam GI & Abdominal Exam: Soft, Normal Bowel Sounds. absent: Tenderness - Extremities Exam Extremities Exam: +1 non pitting edema, no calf tenderness absent: Pedal Edema - Back Exam Back Exam: NORMAL INSPECTION - Neurological Exam Neurological Exam: Oriented x3 - Psychiatric Exam Psychiatric exam: Normal Affect, Normal Mood - Skin Skin Exam: Normal Color, Warm Assessment and Plan - Assessment and Plan (Free Text) Assessment: 1) Systolic dysfunction with Acute on Chronic heart failure -Stable, afebrile -BNP on admission: 8160 -CXR 11/12/17: showed pulmonary venous congestion, small R pleural effusion, bibasilar atelectasis/infiltrate -Echo from 01/03/17 showed LVEF 12% -Shortness of breath is improving -Patient received Midline today -IV Lasix 20mg BID -Daily weights, Fluid restriction, Keep HOB elevated, Monitor I/Os -Cardiology on consult, Dr Arguelles, help appreciated -Not on ACEi/ARB due to chronic hypotension -Metoprolol Tartrate 25mg PO BID -Bipap prn (patient does refuse the bipap and tries to take it off, educated the patient on importance of keeping bipap on) -Physical Therapy 2) Chronic Atrial fibrillation w/ AICD -Cardiology on consult, Dr. Arguelles, help appreciated -Chadsvasc score: 4- High risk for stroke, Hasbled: 2- Moderate risk for bleeding -Cardizem 20 mg given in ED, recieved one dose Digoxin 0.25mg 11/11/17 -Continue Metoprolol 25mg PO BID with holding parameters -Lovenox 90 mg SC q12h discontinued -Coumadin 5mg PO daily 3) History of Mechanical Mitral Valve -INR: 1.5 on admission (subtherapeutic), goal INR 2.5-3.5 -Patient was bridged with Lovenox 90mg Q12H (discontinued) -INR today 2.8, which is in the therapeutic range -Coumadin 5mg daily 4) History of Coronary Artery Disease -Aspirin 81mg PO QD 5) History of COPD -Solumedrol 40mg IV Q8H -Pulmicort 0.5mg Q12H -Pulm on consult, Dr Cobb, Help appreciated 6) Vertigo -Con't home med Meclizine 12.5mg PO daily 7) Orthostatic Hypotension -Con't home med Midodrine 5mg PO daily 8) Dementia -Con't home med Memantine 5mg PO daily Prophylactic Measures -Pepcid 20 mg po daily -SCDs contraindicated due to b/l LE edema -Coumadin 5mg PO daily -Heart Healthy Diet
[2017-11-16] MEDS: Enoxaparin 100 mg Syringe SC SCH (11:57)
--- NOTE | 2017-11-16 18:10 | CP.PCM.PN ---
Subjective - Date & Time of Evaluation Date of Evaluation: 11/16/17 Time of Evaluation: 09:30 - Subjective Subjective: Patient was seen and evaluated at bedside. Pt sitting in chair on room air. Complains of orthopnea that improves with sitting up, shortness of breath with exertion, and bilateral leg swelling. Denies chest pain, fever, chills. Objective - Vital Signs/Intake and Output Vital Signs (last 24 hours): Temp Pulse Resp BP Pulse Ox 97.9 F 56 L 20 100/75 98 11/16/17 16:03 11/16/17 16:03 11/16/17 16:03 11/16/17 16:03 11/16/17 16:03 - Medications Medications: Current Medications Albuterol/Ipratropium (Duoneb 3 Mg/0.5 Mg (3 Ml) Ud) 3 ml INH RQ6 [facility] Last Admin: 11/16/17 13:19 Dose: Not Given Aspirin (Aspirin Chewable) 81 mg PO DAILY [facility] Last Admin: 11/16/17 11:02 Dose: 81 mg Budesonide (Pulmicort Respules) 0.5 mg INH RQ12 [facility] Last Admin: 11/16/17 07:16 Dose: Not Given Famotidine (Pepcid) 20 mg PO DAILY [facility] Last Admin: 11/16/17 11:02 Dose: 20 mg Furosemide (Lasix) 20 mg IVP BID [facility] Last Admin: 11/16/17 13:09 Dose: Not Given Meclizine HCl (Antivert) 12.5 mg PO DAILY [facility] Last Admin: 11/16/17 11:57 Dose: 12.5 mg Memantine (Namenda) 5 mg PO DAILY [facility] Last Admin: 11/16/17 11:03 Dose: 5 mg Methylprednisolone (Solu-Medrol) 40 mg IV Q8 [facility] Last Admin: 11/16/17 14:56 Dose: 40 mg Metoprolol Tartrate (Lopressor) 25 mg PO BID [facility] Last Admin: 11/16/17 11:02 Dose: 25 mg Midodrine (Proamatine) 5 mg PO DAILY [facility] Last Admin: 11/16/17 11:57 Dose: 5 mg - Labs Labs: 11/16/17 08:44 11/16/17 08:44 PT 33.2 SECONDS (9.7-12.2) H* D 11/16/17 09:10 INR 2.8 D 11/16/17 09:10 APTT 23 SECONDS (21-34) 11/11/17 09:58 - Head Exam Head Exam: ATRAUMATIC, NORMOCEPHALIC - Eye Exam Eye Exam: Normal appearance - ENT Exam ENT Exam: Mucous Membranes Moist - Neck Exam Neck Exam: Normal Inspection - Respiratory Exam Respiratory Exam: Decreased Breath Sounds - Cardiovascular Exam Cardiovascular Exam: REGULAR RHYTHM - GI/Abdominal Exam GI & Abdominal Exam: Soft, Normal Bowel Sounds - Neurological Exam Neurological Exam: Alert Assessment and Plan (1) Acute exacerbation of CHF (congestive heart failure) Status: Acute (2) COPD (chronic obstructive pulmonary disease) Assessment & Plan: Continue nebulizer treatment Continue BiPAP Follow up ABG Discontinue Lovenox- INR 2.8 today Status: Acute (3) Chronic atrial fibrillation Status: Chronic
[2017-11-17] MEDS: Albuterol-Ipratrop 3 mg / 0.5 (3 ml) UD INH SCH ×4 (01:32→19:43)
[2017-11-17] MEDS: MethylPREDNISolone 40 mg Vial IV SCH ×3 (06:27→21:23)
[2017-11-17 07:27] LABS: BASO % 0.2 % (0.0-2.0); HEMOGLOBIN 12.1 g/dL (12.0-18.0); LYMPH # 0.3 K/uL (1.0-4.3); LYMPH % 4.4 % (20.0-40.0); MEAN CELL VOLUME 82.9 fL (80.0-94.0); MEAN CORPUSCULAR HEMOGLOBIN 26.4 pg (27.0-31.0); MEAN CORPUSCULAR HGB CONC 31.9 g/dL (33.0-37.0); MEAN PLATELET VOLUME 8.7 fL (7.2-11.7); MONO # 0.3 K/uL (0.0-0.8); MONO % 4.5 % (0.0-10.0); NEUT % 90.9 % (50.0-75.0); NRBC % 0.1 % (0.0-2.0); PLATELET COUNT 305 K/uL (130-400); RBC 4.57 Mil/uL (4.40-5.90); RED CELL DISTRIBUTION WIDTH 17.7 % (11.5-14.5); WHITE BLOOD COUNT 7.7 K/uL (4.8-10.8)
[2017-11-17 07:37] LABS: INR 3.9
[2017-11-17 07:45] LABS: PROTHROMBIN TIME 46.3 SECONDS (9.7-12.2)
[2017-11-17] MEDS: Budesonide 0.5 mg/2 ml Inhal Susp UD INH SCH ×2 (07:51→19:43)
[2017-11-17 08:28] LABS: ALB/GLOB RATIO 1.3 (1.0-2.1); ALT/SGPT 225 U/L (21-72); AST/SGOT 98 U/L (17-59); BLOOD UREA NITROGEN 49 mg/dL (9-20); GFR AFRICAN-AMERICAN > 60; GFR NON-AFRICAN AMERICAN 54
[2017-11-17 08:41] LABS: ANISOCYTOSIS SLIGHT; LYMPHOCYTE 7 % (20-40); MONOCYTE 5 % (0-10); NEUTROPHIL 88 % (50-75); PLATELET ESTIMATE NORMAL (NORMAL); TOTAL CELLS COUNTED 100
[2017-11-17 08:42] LABS: HYPOCHROMIC SLIGHT; OVALOCYTES SLIGHT; POLYCHROMIC SLIGHT
[2017-11-17 08:43] LABS: TARGET CELLS SLIGHT
--- NOTE | 2017-11-17 11:37 | CP.PCM.PN ---
Subjective - Date & Time of Evaluation Date of Evaluation: 11/17/17 Time of Evaluation: 11:36 - Subjective Subjective: Medicine Progress Note: Dr Otoole Service Patient seen and examined at bedside. Patient is doing well, offers no complaints at this time. Still SOB. Denies headaches, dizziness, cp, palpitations, abdominal pain, urinary symptoms, changes in bowel habits. Objective - Vital Signs/Intake and Output Vital Signs (last 24 hours): Temp Pulse Resp BP Pulse Ox 97.2 F L 114 H 22 118/65 98 11/17/17 08:00 11/17/17 08:00 11/17/17 08:00 11/17/17 10:36 11/17/17 08:00 Intake and Output: 11/17/17 11/17/17 06:59 18:59 Intake Total 150 Balance 150 - Medications Medications: Current Medications Albuterol/Ipratropium (Duoneb 3 Mg/0.5 Mg (3 Ml) Ud) 3 ml INH RQ6 [facility] Last Admin: 11/17/17 07:51 Dose: 3 ml Aspirin (Aspirin Chewable) 81 mg PO DAILY [facility] Last Admin: 11/17/17 10:36 Dose: 81 mg Budesonide (Pulmicort Respules) 0.5 mg INH RQ12 [facility] Last Admin: 11/17/17 07:51 Dose: 0.5 mg Digoxin (Lanoxin) 0.125 mg PO DAILY@1800 [facility] Famotidine (Pepcid) 20 mg PO DAILY [facility] Last Admin: 11/17/17 10:36 Dose: 20 mg Furosemide 120 mg/ Sodium (Chloride) 112 mls @ 3.73 mls/hr IVP .Q24H [facility] PRN Reason: 4 MG/HR Methylprednisolone (Solu-Medrol) 40 mg IV Q8 [facility] Last Admin: 11/17/17 06:27 Dose: 40 mg Metolazone (Zaroxolyn) 5 mg PO TID [facility] Metoprolol Tartrate (Lopressor) 25 mg PO BID [facility] Last Admin: 11/17/17 10:36 Dose: 25 mg Midodrine (Proamatine) 5 mg PO DAILY [facility] Last Admin: 11/16/17 11:57 Dose: 5 mg - Labs Labs: 11/17/17 07:21 11/17/17 07:21 PT 46.3 SECONDS (9.7-12.2) H* D 11/17/17 07:21 INR 3.9 D 11/17/17 07:21 APTT 23 SECONDS (21-34) 11/11/17 09:58 - Constitutional Appears: Well, No Acute Distress - Head Exam Head Exam: ATRAUMATIC, NORMAL INSPECTION - Eye Exam Eye Exam: EOMI, Normal appearance - ENT Exam ENT Exam: Mucous Membranes Moist - Respiratory Exam Respiratory Exam: Decreased Breath Sounds, NORMAL BREATHING PATTERN. absent: Rales, Rhonchi, Wheezes - Cardiovascular Exam Cardiovascular Exam: REGULAR RHYTHM, +S1, +S2, Murmur - GI/Abdominal Exam GI & Abdominal Exam: Soft, Normal Bowel Sounds. absent: Firm, Guarding, Rigid, Tenderness - Extremities Exam Additional comments: +1 non-pitting edema, +pedal pulses - Neurological Exam Neurological Exam: Alert, Awake, Normal Gait - Psychiatric Exam Psychiatric exam: Normal Affect, Normal Mood - Skin Skin Exam: Dry, Normal Color, Warm Assessment and Plan - Assessment and Plan (Free Text) Assessment: 1) Systolic dysfunction with Acute on Chronic heart failure -Stable, afebrile -BNP on admission: 8160 -CXR 11/12/17: showed pulmonary venous congestion, small R pleural effusion, bibasilar atelectasis/infiltrate -Echo from 01/03/17 showed LVEF 12%, echo repeated today, f/u official report -Shortness of breath is improving -Patient s/p Midline -Lasix drip ordered -Patient started on Digoxin 0.125mg and Metolazone 5mg PO TID -Metoprolol Tartrate 25mg PO BID -Daily weights, Fluid restriction, Keep HOB elevated, Monitor I/Os -Cardiology on consult, Dr Arguelles, help appreciated -Not on ACEi/ARB due to chronic hypotension -Bipap prn (patient does refuse the bipap and tries to take it off, educated the patient on importance of keeping bipap on) -Physical Therapy on board 2) Chronic Atrial fibrillation w/ AICD -Cardiology on consult, Dr. Arguelles, help appreciated -Chadsvasc score: 4- High risk for stroke, Hasbled: 2- Moderate risk for bleeding -Cardizem 20 mg given in ED, recieved one dose Digoxin 0.25mg 11/11/17 -Continue Metoprolol 25mg PO BID with holding parameters -Lovenox 90 mg SC q12h discontinued -Coumadin on hold today 3) History of Mechanical Mitral Valve -INR: 1.5 on admission (subtherapeutic), goal INR 2.5-3.5 -Patient was bridged with Lovenox 90mg Q12H (discontinued) -INR today 3.9 -Coumadin on hold, will likely restart tomorrow 4) History of Coronary Artery Disease -Aspirin 81mg PO QD 5) History of COPD -Solumedrol 40mg IV Q8H -Pulmicort 0.5mg Q12H -Pulm on consult, Dr Cobb, Help appreciated 6) Vertigo -Con't home med Meclizine 12.5mg PO daily 7) Orthostatic Hypotension -Con't home med Midodrine 5mg PO daily 8) Dementia -Will hold Memantine at this time Prophylactic Measures -Pepcid 20 mg po daily -SCDs contraindicated due to b/l LE edema -Coumadin 5mg PO daily (on hold) -Heart Healthy Diet
[2017-11-17] MEDS: metOLazone 5 MG TAB PO SCH ×2 (13:09→18:20)
[2017-11-17] MEDS ORDERED: Furosemide 100 MG in Sodium Chloride 0.9% 90 ML IVP SCH (16:00)
[2017-11-17] MEDS: Digoxin 125 mcg (0.125 mg) Tab PO SCH (18:21)
--- NOTE | 2017-11-17 18:32 | CP.PCM.PN ---
Subjective - Date & Time of Evaluation Date of Evaluation: 11/17/17 Time of Evaluation: 13:30 - Subjective Subjective: Pt was seen and evaluated at bedside. Pt sitting in chair comfortably. NAD. Pt states he feels much better and shortness of breath has resolved. complains of persitent cough and bilateral leg swelling. Denies chest pain and fever. Objective - Vital Signs/Intake and Output Vital Signs (last 24 hours): Temp Pulse Resp BP Pulse Ox 98.5 F 90 22 100/61 96 11/17/17 15:00 11/17/17 15:00 11/17/17 15:00 11/17/17 18:20 11/17/17 15:00 Intake and Output: 11/17/17 11/17/17 06:59 18:59 Intake Total 150 Balance 150 - Medications Medications: Current Medications Albuterol/Ipratropium (Duoneb 3 Mg/0.5 Mg (3 Ml) Ud) 3 ml INH RQ6 [facility] Last Admin: 11/17/17 13:11 Dose: Not Given Aspirin (Aspirin Chewable) 81 mg PO DAILY [facility] Last Admin: 11/17/17 10:36 Dose: 81 mg Budesonide (Pulmicort Respules) 0.5 mg INH RQ12 [facility] Last Admin: 11/17/17 07:51 Dose: 0.5 mg Digoxin (Lanoxin) 0.125 mg PO DAILY@1800 [facility] Last Admin: 11/17/17 18:21 Dose: 0.125 mg Famotidine (Pepcid) 20 mg PO DAILY [facility] Last Admin: 11/17/17 10:36 Dose: 20 mg Furosemide 100 mg/ Sodium (Chloride) 100 mls @ 4 mls/hr IVP .Q24H [facility] PRN Reason: 4 MG/HR Last Admin: 11/17/17 17:32 Dose: 4 mls/hr Methylprednisolone (Solu-Medrol) 40 mg IV Q8 [facility] Last Admin: 11/17/17 13:09 Dose: 40 mg Metolazone (Zaroxolyn) 5 mg PO TID [facility] Last Admin: 11/17/17 18:20 Dose: 5 mg Metoprolol Tartrate (Lopressor) 25 mg PO BID [facility] Last Admin: 11/17/17 18:20 Dose: 25 mg Midodrine (Proamatine) 5 mg PO DAILY [facility] Last Admin: 11/17/17 13:07 Dose: 5 mg - Labs Labs: 11/17/17 07:21 11/17/17 07:21 PT 46.3 SECONDS (9.7-12.2) H* D 11/17/17 07:21 INR 3.9 D 11/17/17 07:21 APTT 23 SECONDS (21-34) 11/11/17 09:58 Assessment and Plan (1) Acute exacerbation of CHF (congestive heart failure) Status: Acute (2) COPD (chronic obstructive pulmonary disease) Status: Acute (3) Chronic atrial fibrillation Status: Chronic
[2017-11-18] MEDS: Albuterol-Ipratrop 3 mg / 0.5 (3 ml) UD INH SCH ×2 (01:19→07:44)
[2017-11-18] MEDS: MethylPREDNISolone 40 mg Vial IV SCH ×3 (05:23→21:49)
[2017-11-18 07:09] LABS: BASO % 0.3 % (0.0-2.0); HEMOGLOBIN 12.3 g/dL (12.0-18.0); LYMPH # 0.4 K/uL (1.0-4.3); LYMPH % 2.8 % (20.0-40.0); MEAN CELL VOLUME 81.9 fL (80.0-94.0); MEAN CORPUSCULAR HEMOGLOBIN 26.2 pg (27.0-31.0); MEAN CORPUSCULAR HGB CONC 31.9 g/dL (33.0-37.0); MEAN PLATELET VOLUME 8.7 fL (7.2-11.7); MONO # 0.7 K/uL (0.0-0.8); MONO % 4.8 % (0.0-10.0); NEUT # 13.5 K/uL (1.8-7.0); NEUT % 92.1 % (50.0-75.0); NRBC % 0.2 % (0.0-2.0); PLATELET COUNT 338 K/uL (130-400); RED CELL DISTRIBUTION WIDTH 17.5 % (11.5-14.5); WHITE BLOOD COUNT 14.6 K/uL (4.8-10.8)
[2017-11-18 07:13] LABS: INR 5.2
[2017-11-18 07:24] LABS: PROTHROMBIN TIME 62.4 SECONDS (9.7-12.2)
[2017-11-18] MEDS: Budesonide 0.5 mg/2 ml Inhal Susp UD INH SCH ×2 (07:44→20:44)
[2017-11-18 07:48] LABS: ALB/GLOB RATIO 1.3 (1.0-2.1); CALCIUM 10.2 mg/dl (8.6-10.4)
--- NOTE | 2017-11-18 07:52 | CARD ---
APPROVED REPORT EXAM: Two-dimensional and M-mode echocardiogram with Doppler and color Doppler. Other Information Quality : [employer] : INDICATION Congestive Heart Failure 2D DIMENSIONS IVSd1.2 (0.7-1.1cm)LVDd6.5 (3.9-5.9cm) PWd1.1 (0.7-1.1cm)LVDs6.3 (2.5-4.0cm) FS (%) 4.1 %LVEF (%)9.0 (>50%) M-Mode DIMENSIONS Left Atrium (MM)5.95 (2.5-4.0cm)Aortic Root3.58 (2.2-3.7cm) Aortic Cusp Exc.1.56 (1.5-2.0cm) Mitral Valve MV E Xdrvsdwy318.9cm/sMV E Peak Gr.11mmHgMV A Kuqacisz58.2cm/s MV E Mean Gr.3mmHgMV [id number]/A ratio2.3 MVA (PHT)2.44cm2 TDI E/Lateral E'0.0E/Medial E'0.0 Tricuspid Valve TR Peak [id number]/sTR Peak Gr.[id number] LEFT VENTRICLE The Left Ventricle is severely dilated. There is normal left ventricular wall thickness. Left ventricle systolic function is severely impaired. The Ejection Fraction is 10-15%. There is severe global hypokinesis of the left ventricle. The left ventricular diastolic function is normal. No left ventricle thrombus noted on this study. RIGHT VENTRICLE The right ventricle is moderately dilated. There is normal right ventricular wall thickness. Systolic function is severely reduced. There is a pacemaker lead in the right ventricle. ATRIA The left atrium is severely dilated. The right atrium is moderately dilated. A pacemaker is seen in the right atrium. The interatrial septum is intact with no evidence for an atrial septal defect. AORTIC VALVE The aortic valve is normal in structure. No aortic regurgitation is present. There is no aortic valvular stenosis. There is no aortic valvular vegetation. MITRAL VALVE The mitral valve is normal in structure. Mitral annular calcification is moderate. There is no evidence of mitral valve prolapse. Mitral regurgitation is mild. The prosthetic mitral valve is not well visualized due to imaging artifacts from the prosthesis. TRICUSPID VALVE The tricuspid valve is normal in structure. There is mild to moderate tricuspid regurgitation. Right ventricular systolic pressure is estimated at 30-40 mmHg. There is mild pulmonary hypertension. PULMONIC VALVE The pulmonic valve is not well visualized. There is no pulmonic valvular regurgitation. GREAT VESSELS The aortic root is normal in size. PERICARDIAL EFFUSION There is no significant pericardial effusion. <Conclusion> Left ventricle systolic function is severely impaired. The Ejection Fraction is 10-15%. No aortic regurgitation is present. Mitral regurgitation is mild. The prosthetic mitral valve is not well visualized due to imaging artifacts from the prosthesis. There is mild to moderate tricuspid regurgitation. There is mild pulmonary hypertension. There is no pulmonic valvular regurgitation.
[2017-11-18 09:07] LABS: ANISOCYTOSIS SLIGHT; HYPOCHROMIC SLIGHT; LYMPHOCYTE 2 % (20-40); MONOCYTE 3 % (0-10); NEUTROPHIL 95 % (50-75); PLATELET ESTIMATE NORMAL (NORMAL); TOTAL CELLS COUNTED 100
[2017-11-18] MEDS ORDERED: Levalbuterol 0.63 MG/3 ML Inhal Soln UD INH PRN (09:07)
[2017-11-18 09:08] LABS: OVALOCYTES SLIGHT; POLYCHROMIC SLIGHT; TARGET CELLS SLIGHT
--- NOTE | 2017-11-18 09:13 | CP.PCM.PN ---
Subjective - Date & Time of Evaluation Date of Evaluation: 11/18/17 Time of Evaluation: 09:10 - Subjective Subjective: Medicine Progress Note: Dr Otoole Service Patient seen and examined at bedside. Per nursing, patients INR was 5.6 this morning, will continue to hold coumadin and monitor. Patient still SOB on ambulation, currently on Lasix drip. Denies headaches, dizziness, cp, palpitations, abdominal pain, urinary symptoms, changes in bowel habits. Last BM was 2 days ago. Objective - Vital Signs/Intake and Output Vital Signs (last 24 hours): Temp Pulse Resp BP Pulse Ox 97.1 F L 98 H 22 101/64 98 11/17/17 22:48 11/17/17 23:10 11/17/17 22:48 11/17/17 22:48 11/17/17 22:48 Intake and Output: 11/18/17 11/18/17 06:59 18:59 Intake Total 532 Balance 532 - Medications Medications: Current Medications Aspirin (Aspirin Chewable) 81 mg PO DAILY [facility] Last Admin: 11/17/17 10:36 Dose: 81 mg Budesonide (Pulmicort Respules) 0.5 mg INH RQ12 [facility] Last Admin: 11/18/17 07:44 Dose: 0.5 mg Digoxin (Lanoxin) 0.125 mg PO DAILY@1800 [facility] Last Admin: 11/17/17 18:21 Dose: 0.125 mg Famotidine (Pepcid) 20 mg PO DAILY [facility] Last Admin: 11/17/17 10:36 Dose: 20 mg Furosemide 100 mg/ Sodium (Chloride) 100 mls @ 4 mls/hr IVP .Q24H [facility] PRN Reason: 4 MG/HR Last Admin: 11/17/17 17:32 Dose: 4 mls/hr Levalbuterol HCl (Xopenex) 0.63 mg INH RQ6 [facility] Methylprednisolone (Solu-Medrol) 40 mg IV Q8 [facility] Last Admin: 11/18/17 05:23 Dose: 40 mg Metolazone (Zaroxolyn) 5 mg PO TID [facility] Last Admin: 11/17/17 18:20 Dose: 5 mg Metoprolol Tartrate (Lopressor) 25 mg PO BID [facility] Last Admin: 11/17/17 18:20 Dose: 25 mg Midodrine (Proamatine) 5 mg PO DAILY [facility] Last Admin: 11/17/17 13:07 Dose: 5 mg - Labs Labs: 11/18/17 07:02 11/18/17 07:02 PT 62.4 SECONDS (9.7-12.2) H* D 11/18/17 07:02 INR 5.2 D 11/18/17 07:02 APTT 23 SECONDS (21-34) 11/11/17 09:58 - Constitutional Appears: Well, No Acute Distress - Head Exam Head Exam: ATRAUMATIC, NORMAL INSPECTION, NORMOCEPHALIC - Eye Exam Eye Exam: EOMI, Normal appearance - ENT Exam ENT Exam: Mucous Membranes Moist - Neck Exam Neck Exam: Full ROM - Respiratory Exam Respiratory Exam: Decreased Breath Sounds, NORMAL BREATHING PATTERN. absent: Rales, Rhonchi, Wheezes, Respiratory Distress - Cardiovascular Exam Cardiovascular Exam: Tachycardia, +S1, +S2 - GI/Abdominal Exam GI & Abdominal Exam: Soft, Normal Bowel Sounds. absent: Distended, Firm, Guarding, Rigid, Tenderness - Extremities Exam Extremities Exam: Pedal Edema Additional comments: +1 pitting edema bilaterally +pedal pulses +midline in right upper arm - Back Exam Back Exam: NORMAL INSPECTION - Neurological Exam Neurological Exam: Alert, Awake, Normal Gait - Psychiatric Exam Psychiatric exam: Normal Affect, Normal Mood - Skin Skin Exam: Normal Color, Warm Assessment and Plan - Assessment and Plan (Free Text) Assessment: 1) Systolic dysfunction with Acute on Chronic heart failure -Stable, afebrile -BNP on admission: 8160 -CXR 11/12/17: showed pulmonary venous congestion, small R pleural effusion, bibasilar atelectasis/infiltrate -Echo from 01/03/17 showed LVEF 12%, -Echo report: EF 10-15%, Systolic dysfunction severely impaired, mild to mod TR , mild Pulm HTN (see full report) -Will order repeat CXR today -Continue Lasix drip, hold is SBP < 90 -Continue Digoxin 0.125mg and Metolazone 5mg PO TID -Metoprolol Tartrate 25mg PO BID -Daily weights, Fluid restriction, Keep HOB elevated, Monitor I/Os -Cardiology on consult, Dr Arguelles, help appreciated -Not on ACEi/ARB due to chronic hypotension -Bipap prn (patient does refuse the bipap and tries to take it off, educated the patient on importance of keeping bipap on) -Physical Therapy on board -LFTs elevated but downtrending, likely secondary to worsening CHF, will continue to monitor 2) Chronic Atrial fibrillation w/ AICD -Cardiology on consult, Dr. Arguelles, help appreciated -Chadsvasc score: 4- High risk for stroke, Hasbled: 2- Moderate risk for bleeding -Cardizem 20 mg given in ED, recieved one dose Digoxin 0.25mg 11/11/17 -Continue Metoprolol 25mg PO BID with holding parameters -Continue Digoxin 0.125mg daily -Lovenox 90 mg SC q12h discontinued -Coumadin on hold today 3) History of Mechanical Mitral Valve -INR: 1.5 on admission (subtherapeutic), goal INR 2.5-3.5 -Patient was bridged with Lovenox 90mg Q12H (discontinued) -INR today 5.2, supratherapeutic -Coumadin on hold -Monitor INR closely 4) History of Coronary Artery Disease -Aspirin 81mg PO QD 5) History of COPD -Solumedrol 40mg IV Q8H -Pulmicort 0.5mg Q12H -Duonebs -Pulm on consult, Dr Cobb, Help appreciated 6) Vertigo -Meclizine 12.5mg discontinued 7) Orthostatic Hypotension -Con't home med Midodrine 5mg PO daily 8) Dementia -Will hold Memantine at this time 9) Acute Kidney Injury -BUN 59/1.7 -F/U urine sodium and urine creatinine -Will continue to monitor at this time Prophylactic Measures -Pepcid 20 mg po daily -SCDs contraindicated due to b/l LE edema -Coumadin 5mg PO daily (on hold) -Heart Healthy Diet
[2017-11-18] MEDS: metOLazone 5 MG TAB PO SCH ×3 (09:35→18:20)
--- NOTE | 2017-11-18 10:14 | RAD ---
HISTORY: SOB COMPARISON: Comparison chest 11/12/17 FINDINGS: LUNGS: Mild vascular congestive changes with what slight improvement previously noted bilateral lower lobe alveolar-type infiltrates. Small residual right-sided effusion. Questionable tiny left effusion. PLEURA: No significant pleural effusion identified, no pneumothorax apparent. CARDIOVASCULAR: Sternotomy wires and prosthetic valve unchanged. Multi lead pacemaker/ defibrillator also unchanged. Heart remains enlarged. Heart remains enlarged. OSSEOUS STRUCTURES: No significant abnormalities. VISUALIZED UPPER ABDOMEN: Normal. OTHER FINDINGS: None. IMPRESSION: Mild vascular congestive changes with what slight improvement previously noted bilateral lower lobe alveolar-type infiltrates. Small residual right-sided effusion. Questionable tiny left effusion.
[2017-11-18 12:43] LABS: CREATININE, RANDOM URINE 51.2 mg/dL
[2017-11-18] MEDS: Albuterol 0.042% Inhal Sol (1.25 mg/3 mL) UD INH SCH ×2 (13:21→20:44)
[2017-11-18 13:27] VITALS: RESP 20
--- NOTE | 2017-11-18 15:42 | CP.PCM.PN ---
Subjective - Date & Time of Evaluation Date of Evaluation: 11/18/17 Time of Evaluation: 12:05 - Subjective Subjective: Pt was seen and evaluated at bedside. Pt in NAD, sitting in chair. On 3L NC. Staes he feels "so-so," but offers no specific complaints at this time. O2 saturation decreases to 93-94 when on room air, increases to 97-100 on 3L oxygen. As per nurse, pt has been difficult, not cooperating and hiding in bathrooms. Objective - Vital Signs/Intake and Output Vital Signs (last 24 hours): Temp Pulse Resp BP Pulse Ox 97.3 F L 84 20 121/64 97 11/18/17 11:00 11/18/17 11:27 11/18/17 11:00 11/18/17 11:00 11/18/17 11:00 Intake and Output: 11/18/17 11/18/17 06:59 18:59 Intake Total 532 240 Balance 532 240 - Medications Medications: Current Medications Albuterol Sulfate (Albuterol 0.042% Inhal Laura (1.25mg/3ml) Ud) 1.25 mg INH RQ6 [facility] Last Admin: 11/18/17 13:21 Dose: 1.25 mg Aspirin (Aspirin Chewable) 81 mg PO DAILY [facility] Last Admin: 11/18/17 09:35 Dose: 81 mg Budesonide (Pulmicort Respules) 0.5 mg INH RQ12 [facility] Last Admin: 11/18/17 07:44 Dose: 0.5 mg Digoxin (Lanoxin) 0.125 mg PO DAILY@1800 [facility] Last Admin: 11/17/17 18:21 Dose: 0.125 mg Famotidine (Pepcid) 20 mg PO DAILY [facility] Last Admin: 11/18/17 09:35 Dose: 20 mg Furosemide 100 mg/ Sodium (Chloride) 100 mls @ 4 mls/hr IVP .Q24H [facility] PRN Reason: 4 MG/HR Last Admin: 11/17/17 17:32 Dose: 4 mls/hr Methylprednisolone (Solu-Medrol) 40 mg IV Q8 [facility] Last Admin: 11/18/17 13:33 Dose: 40 mg Metolazone (Zaroxolyn) 5 mg PO TID [facility] Last Admin: 11/18/17 13:33 Dose: 5 mg Metoprolol Tartrate (Lopressor) 25 mg PO BID [facility] Last Admin: 11/18/17 09:35 Dose: Not Given Midodrine (Proamatine) 5 mg PO DAILY [facility] Last Admin: 11/18/17 09:41 Dose: 5 mg - Labs Labs: 11/18/17 07:02 11/18/17 07:02 PT 62.4 SECONDS (9.7-12.2) H* D 11/18/17 07:02 INR 5.2 D 11/18/17 07:02 APTT 23 SECONDS (21-34) 11/11/17 09:58 Assessment and Plan (1) Acute exacerbation of CHF (congestive heart failure) Status: Acute (2) COPD (chronic obstructive pulmonary disease) Status: Acute (3) Chronic atrial fibrillation Status: Chronic
[2017-11-18] MEDS: Furosemide 100 MG in Sodium Chloride 0.9% 90 ML IVP SCH (16:52)
[2017-11-18] MEDS: Digoxin 125 mcg (0.125 mg) Tab PO SCH (18:19)
[2017-11-19] MEDS: Albuterol 0.042% Inhal Sol (1.25 mg/3 mL) UD INH SCH ×4 (01:25→19:46)
[2017-11-19] MEDS: MethylPREDNISolone 40 mg Vial IV SCH ×3 (05:30→21:14)
[2017-11-19 07:27] LABS: BASO % 0.1 % (0.0-2.0); HEMOGLOBIN 11.4 g/dL (12.0-18.0); LYMPH # 0.1 K/uL (1.0-4.3); LYMPH % 1.3 % (20.0-40.0); MEAN CORPUSCULAR HEMOGLOBIN 25.8 pg (27.0-31.0); MEAN CORPUSCULAR HGB CONC 31.5 g/dL (33.0-37.0); MEAN PLATELET VOLUME 8.5 fL (7.2-11.7); MONO # 0.6 K/uL (0.0-0.8); NEUT # 10.7 K/uL (1.8-7.0); NEUT % 93.6 % (50.0-75.0); NRBC % 0.2 % (0.0-2.0); PLATELET COUNT 295 K/uL (130-400); RBC 4.43 Mil/uL (4.40-5.90); RED CELL DISTRIBUTION WIDTH 17.7 % (11.5-14.5); WHITE BLOOD COUNT 11.4 K/uL (4.8-10.8)
[2017-11-19 07:37] LABS: PROTHROMBIN TIME 46.8 SECONDS (9.7-12.2)
[2017-11-19] MEDS: Budesonide 0.5 mg/2 ml Inhal Susp UD INH SCH ×2 (07:50→19:46)
[2017-11-19 08:28] LABS: ALB/GLOB RATIO 1.4 (1.0-2.1); ALBUMIN 3.8 g/dL (3.5-5.0); CALCIUM 9.6 mg/dl (8.6-10.4)
[2017-11-19 08:50] LABS: ANISOCYTOSIS SLIGHT; HYPOCHROMIC SLIGHT; LYMPHOCYTE 1 % (20-40); MONOCYTE 2 % (0-10); NEUTROPHIL 97 % (50-75); PLATELET ESTIMATE NORMAL (NORMAL); TOTAL CELLS COUNTED 100
[2017-11-19 08:51] LABS: OVALOCYTES SLIGHT; POLYCHROMIC SLIGHT; TARGET CELLS SLIGHT
[2017-11-19] MEDS: metOLazone 5 MG TAB PO SCH ×3 (09:31→17:33)
[2017-11-19] MEDS ORDERED: Potassium Chloride 20 mEq ER Tab PO ONE (10:14)
--- NOTE | 2017-11-19 10:16 | CP.PCM.PN ---
Subjective - Date & Time of Evaluation Date of Evaluation: 11/19/17 Time of Evaluation: 10:16 - Subjective Subjective: Medicine Progress Note: Dr Otoole Service Patient seen and examined at bedside. Per nursing no acute events overnight. Patient states that he has a cough with clear sputum production. Everytime he coughs he gets epigastric discomfort. SOB improving. Denies headaches, dizziness , cp, palpitations, abdominal pain, urinary symptoms, changes in bowel habits. Objective - Vital Signs/Intake and Output Vital Signs (last 24 hours): Temp Pulse Resp BP Pulse Ox 97.2 F L 114 H 20 107/69 97 11/18/17 23:40 11/19/17 01:42 11/18/17 23:40 11/19/17 09:30 11/18/17 23:40 Intake and Output: 11/19/17 11/19/17 06:59 18:59 Intake Total 804 Balance 804 - Medications Medications: Current Medications Albuterol Sulfate (Albuterol 0.042% Inhal Laura (1.25mg/3ml) Ud) 1.25 mg INH RQ6 [facility] Last Admin: 11/19/17 07:50 Dose: 1.25 mg Aspirin (Aspirin Chewable) 81 mg PO DAILY [facility] Last Admin: 11/19/17 09:30 Dose: 81 mg Budesonide (Pulmicort Respules) 0.5 mg INH RQ12 [facility] Last Admin: 11/19/17 07:50 Dose: 0.5 mg Digoxin (Lanoxin) 0.125 mg PO DAILY@1800 [facility] Last Admin: 11/18/17 18:19 Dose: 0.125 mg Famotidine (Pepcid) 20 mg PO DAILY [facility] Last Admin: 11/19/17 09:30 Dose: 20 mg Guaifenesin (Robitussin) 100 mg PO Q4H PRN PRN Reason: Cough Furosemide 100 mg/ Sodium (Chloride) 100 mls @ 4 mls/hr IVP .Q24H [facility] PRN Reason: 4 MG/HR Last Admin: 11/18/17 16:52 Dose: 4 mls/hr Methylprednisolone (Solu-Medrol) 40 mg IV Q8 [facility] Last Admin: 11/19/17 05:30 Dose: 40 mg Metolazone (Zaroxolyn) 5 mg PO TID [facility] Last Admin: 11/19/17 09:31 Dose: 5 mg Metoprolol Tartrate (Lopressor) 25 mg PO BID [facility] Last Admin: 11/19/17 09:30 Dose: 25 mg Midodrine (Proamatine) 5 mg PO DAILY [facility] Last Admin: 11/19/17 09:31 Dose: 5 mg - Labs Labs: 11/19/17 07:21 11/19/17 07:21 PT 46.8 SECONDS (9.7-12.2) H* D 11/19/17 07:21 INR 4.0 D 11/19/17 07:21 APTT 23 SECONDS (21-34) 11/11/17 09:58 - Constitutional Appears: Non-toxic, No Acute Distress - Head Exam Head Exam: ATRAUMATIC, NORMAL INSPECTION - Eye Exam Eye Exam: EOMI, Normal appearance - ENT Exam ENT Exam: Mucous Membranes Moist - Neck Exam Neck Exam: Full ROM - Respiratory Exam Respiratory Exam: Decreased Breath Sounds, Clear to Ausculation Bilateral, NORMAL BREATHING PATTERN. absent: Rales, Rhonchi, Wheezes - Cardiovascular Exam Cardiovascular Exam: REGULAR RHYTHM, +S1, +S2 - GI/Abdominal Exam GI & Abdominal Exam: Soft, Normal Bowel Sounds. absent: Guarding, Rigid, Tenderness - Extremities Exam Extremities Exam: Normal Capillary Refill Additional comments: +1 pitting edema bilaterally - Neurological Exam Neurological Exam: Alert, Awake, Normal Gait - Psychiatric Exam Psychiatric exam: Normal Affect, Normal Mood - Skin Skin Exam: Dry, Normal Color, Warm Assessment and Plan - Assessment and Plan (Free Text) Assessment: 1) Systolic dysfunction with Acute on Chronic heart failure -Stable, afebrile -BNP on admission: 8160 -CXR 11/12/17: showed pulmonary venous congestion, small R pleural effusion, bibasilar atelectasis/infiltrate -Echo from 01/03/17 showed LVEF 12%, -Echo report: EF 10-15%, Systolic dysfunction severely impaired, mild to mod TR , mild Pulm HTN (see full report) -Continue Lasix drip, hold is SBP < 90 -Continue Digoxin 0.125mg and Metolazone 5mg PO TID -Metoprolol Tartrate 25mg PO BID -Daily weights, Fluid restriction, Keep HOB elevated, Monitor I/Os -Cardiology on consult, Dr Arguelles, help appreciated -Not on ACEi/ARB due to chronic hypotension -Bipap prn (patient does refuse the bipap and tries to take it off, educated the patient on importance of keeping bipap on) -Physical Therapy on board -LFTs elevated but downtrending, likely secondary to worsening CHF, will continue to monitor 2) Chronic Atrial fibrillation w/ AICD -Cardiology on consult, Dr. Arguelles, help appreciated -Chadsvasc score: 4- High risk for stroke, Hasbled: 2- Moderate risk for bleeding -Cardizem 20 mg given in ED, recieved one dose Digoxin 0.25mg 11/11/17 -Continue Metoprolol 25mg PO BID with holding parameters -Continue Digoxin 0.125mg daily -Lovenox 90 mg SC q12h discontinued -Coumadin on hold today 3) History of Mechanical Mitral Valve -INR: 1.5 on admission (subtherapeutic), goal INR 2.5-3.5 -Patient was bridged with Lovenox 90mg Q12H (discontinued) -INR today 4.0, supratherapeutic -Coumadin on hold -Monitor INR closely 4) History of Coronary Artery Disease -Aspirin 81mg PO QD 5) History of COPD -Decreased Solumedrol 40mg IV Q12H -Pulmicort 0.5mg Q12H -Duonebs -Pulm on consult, Dr Cobb, Help appreciated 6) Vertigo -Meclizine 12.5mg discontinued 7) Orthostatic Hypotension -Con't home med Midodrine 5mg PO daily 8) Dementia -Will hold Memantine at this time 9) Acute Kidney Injury -BUN 66/1.7 -F/U urine sodium, urine creatinine, urine urea -Will continue to monitor at this time Prophylactic Measures -Pepcid 20 mg po daily -SCDs contraindicated due to b/l LE edema -Coumadin 5mg PO daily (on hold) -Heart Healthy Diet
[2017-11-19] MEDS: guaiFENesin 100 mg/5 ml Syrup UD PO PRN (10:32)
[2017-11-19] MEDS: Furosemide 100 MG in Sodium Chloride 0.9% 90 ML IVP SCH (16:42)
[2017-11-19] MEDS: Digoxin 125 mcg (0.125 mg) Tab PO SCH (17:34)
--- NOTE | 2017-11-19 18:35 | CP.PCM.PN ---
Subjective - Date & Time of Evaluation Date of Evaluation: 11/19/17 Time of Evaluation: 16:00 - Subjective Subjective: the patient seen and examined Complaining of dyspnea on minimal exertion Awake responsive Afebrile No chest pain Objective - Vital Signs/Intake and Output Vital Signs (last 24 hours): Temp Pulse Resp BP Pulse Ox 98.8 F 73 20 106/67 96 11/19/17 16:12 11/19/17 16:12 11/19/17 16:12 11/19/17 17:34 11/19/17 16:12 Intake and Output: 11/19/17 11/19/17 06:59 18:59 Intake Total 804 332 Output Total 700 Balance 804 -368 - Medications Medications: Current Medications Albuterol Sulfate (Albuterol 0.042% Inhal Laura (1.25mg/3ml) Ud) 1.25 mg INH RQ6 [facility] Last Admin: 11/19/17 14:38 Dose: Not Given Aspirin (Aspirin Chewable) 81 mg PO DAILY [facility] Last Admin: 11/19/17 09:30 Dose: 81 mg Budesonide (Pulmicort Respules) 0.5 mg INH RQ12 [facility] Last Admin: 11/19/17 07:50 Dose: 0.5 mg Digoxin (Lanoxin) 0.125 mg PO DAILY@1800 [facility] Last Admin: 11/19/17 17:34 Dose: 0.125 mg Famotidine (Pepcid) 20 mg PO DAILY [facility] Last Admin: 11/19/17 09:30 Dose: 20 mg Guaifenesin (Robitussin) 100 mg PO Q4H PRN PRN Reason: Cough Last Admin: 11/19/17 10:32 Dose: 100 mg Furosemide 100 mg/ Sodium (Chloride) 100 mls @ 4 mls/hr IVP .Q24H [facility] PRN Reason: 4 MG/HR Last Admin: 11/19/17 16:42 Dose: 4 mls/hr Methylprednisolone (Solu-Medrol) 40 mg IV Q12 [facility] Metolazone (Zaroxolyn) 5 mg PO TID [facility] Last Admin: 11/19/17 17:33 Dose: 5 mg Metoprolol Tartrate (Lopressor) 25 mg PO BID [facility] Last Admin: 11/19/17 17:34 Dose: 25 mg Midodrine (Proamatine) 5 mg PO DAILY [facility] Last Admin: 11/19/17 09:31 Dose: 5 mg - Labs Labs: 11/19/17 07:21 11/19/17 07:21 PT 46.8 SECONDS (9.7-12.2) H* D 11/19/17 07:21 INR 4.0 D 11/19/17 07:21 APTT 23 SECONDS (21-34) 11/11/17 09:58 - Head Exam Head Exam: ATRAUMATIC, NORMOCEPHALIC - Eye Exam Eye Exam: Normal appearance - ENT Exam ENT Exam: Mucous Membranes Moist - Neck Exam Neck Exam: Normal Inspection - Respiratory Exam Respiratory Exam: Rales - Cardiovascular Exam Cardiovascular Exam: REGULAR RHYTHM Assessment and Plan (1) Acute exacerbation of CHF (congestive heart failure) Assessment & Plan: Continue diuretics and cardiac management Status: Acute (2) COPD (chronic obstructive pulmonary disease) Assessment & Plan: continue nebulizer treatment, IV steroids and BiPAP as needed Status: Acute (3) Chronic atrial fibrillation Status: Chronic
[2017-11-20] MEDS: Albuterol 0.042% Inhal Sol (1.25 mg/3 mL) UD INH SCH ×4 (01:16→19:29)
[2017-11-20 01:36] LABS: CREATININE, RANDOM URINE 31.5 mg/dL
[2017-11-20 07:39] LABS: INR 2.9
[2017-11-20 07:43] LABS: BASO % 0.1 % (0.0-2.0); EOS % 0.1 % (0.0-4.0); HEMOGLOBIN 11.7 g/dL (12.0-18.0); LYMPH # 0.2 K/uL (1.0-4.3); LYMPH % 2.1 % (20.0-40.0); MEAN CELL VOLUME 81.4 fL (80.0-94.0); MEAN CORPUSCULAR HEMOGLOBIN 26.1 pg (27.0-31.0); MEAN PLATELET VOLUME 8.7 fL (7.2-11.7); MONO # 0.8 K/uL (0.0-0.8); MONO % 7.1 % (0.0-10.0); NEUT # 10.3 K/uL (1.8-7.0); NEUT % 90.6 % (50.0-75.0); NRBC % 0.4 % (0.0-2.0); PLATELET COUNT 302 K/uL (130-400); RED CELL DISTRIBUTION WIDTH 17.7 % (11.5-14.5); WHITE BLOOD COUNT 11.4 K/uL (4.8-10.8)
[2017-11-20] MEDS: Budesonide 0.5 mg/2 ml Inhal Susp UD INH SCH ×2 (08:14→19:29)
[2017-11-20 08:21] LABS: ALB/GLOB RATIO 1.4 (1.0-2.1); ALBUMIN 3.9 g/dL (3.5-5.0); CALCIUM 9.4 mg/dl (8.6-10.4)
--- NOTE | 2017-11-20 09:25 | CP.PCM.PN ---
Subjective - Date & Time of Evaluation Date of Evaluation: 11/20/17 Time of Evaluation: 09:24 - Subjective Subjective: Medicine Progress Note: Dr Otoole Service Patient seen and examined at bedside. Per nursing no acute events overnight. Patient was confused, and asking why he was here. States that SOB improving and so is the cough. Swelling in lower extremities also improving. Denies headaches , dizziness, cp, palpitations, abdominal pain, urinary symptoms, changes in bowel habits. Objective - Vital Signs/Intake and Output Vital Signs (last 24 hours): Temp Pulse Resp BP Pulse Ox 97.2 F L 99 H 20 119/67 95 11/20/17 08:33 11/20/17 08:33 11/20/17 08:33 11/20/17 08:33 11/20/17 08:33 Intake and Output: 11/20/17 11/20/17 06:59 18:59 Intake Total 232 Output Total 600 Balance -368 - Medications Medications: Current Medications Albuterol Sulfate (Albuterol 0.042% Inhal Laura (1.25mg/3ml) Ud) 1.25 mg INH RQ6 [facility] Last Admin: 11/20/17 08:14 Dose: 1.25 mg Aspirin (Aspirin Chewable) 81 mg PO DAILY [facility] Last Admin: 11/19/17 09:30 Dose: 81 mg Budesonide (Pulmicort Respules) 0.5 mg INH RQ12 [facility] Last Admin: 11/20/17 08:14 Dose: 0.5 mg Digoxin (Lanoxin) 0.125 mg PO DAILY@1800 [facility] Last Admin: 11/19/17 17:34 Dose: 0.125 mg Famotidine (Pepcid) 20 mg PO DAILY [facility] Last Admin: 11/19/17 09:30 Dose: 20 mg Guaifenesin (Robitussin) 100 mg PO Q4H PRN PRN Reason: Cough Last Admin: 11/19/17 10:32 Dose: 100 mg Furosemide 100 mg/ Sodium (Chloride) 100 mls @ 4 mls/hr IVP .Q24H [facility] PRN Reason: 4 MG/HR Last Admin: 11/19/17 16:42 Dose: 4 mls/hr Methylprednisolone (Solu-Medrol) 40 mg IV Q12 [facility] Last Admin: 11/19/17 21:14 Dose: 40 mg Metolazone (Zaroxolyn) 5 mg PO TID [facility] Last Admin: 11/19/17 17:33 Dose: 5 mg Metoprolol Tartrate (Lopressor) 25 mg PO BID [facility] Last Admin: 11/19/17 17:34 Dose: 25 mg Midodrine (Proamatine) 5 mg PO DAILY [facility] Last Admin: 11/19/17 09:31 Dose: 5 mg Warfarin Sodium (Coumadin) 3 mg PO 1800 [facility] Stop: 11/20/17 18:01 - Labs Labs: 11/20/17 07:14 11/20/17 07:14 PT 34.0 SECONDS (9.7-12.2) H* D 11/20/17 07:14 INR 2.9 D 11/20/17 07:14 APTT 23 SECONDS (21-34) 11/11/17 09:58 - Additional Findings Additional findings: - Constitutional Appears: Non-toxic, No Acute Distress - Head Exam Head Exam: ATRAUMATIC, NORMAL INSPECTION - Eye Exam Eye Exam: EOMI, Normal appearance - ENT Exam ENT Exam: Mucous Membranes Moist - Neck Exam Neck Exam: Full ROM - Respiratory Exam Respiratory Exam: Decreased Breath Sounds, Clear to Ausculation Bilateral, NORMAL BREATHING PATTERN. absent: Rales, Rhonchi, Wheezes - Cardiovascular Exam Cardiovascular Exam: REGULAR RHYTHM, +S1, +S2 - GI/Abdominal Exam GI & Abdominal Exam: Soft, Normal Bowel Sounds. absent: Guarding, Rigid, Tenderness - Extremities Exam Extremities Exam: Normal Capillary Refill Additional comments: +1 pitting edema bilaterally - Neurological Exam Neurological Exam: Alert, Awake, Normal Gait - Psychiatric Exam Psychiatric exam: Normal Affect, Normal Mood - Skin Skin Exam: Dry, Normal Color, Warm Assessment and Plan - Assessment and Plan (Free Text) Assessment: 1) Systolic dysfunction with Acute on Chronic heart failure -Stable, afebrile -BNP on admission: 8160 -CXR 11/12/17: showed pulmonary venous congestion, small R pleural effusion, bibasilar atelectasis/infiltrate -Echo from 01/03/17 showed LVEF 12%, -Echo report: EF 10-15%, Systolic dysfunction severely impaired, mild to mod TR , mild Pulm HTN (see full report) -Continue Lasix drip, hold is SBP < 90 -Continue Digoxin 0.125mg -Metolazone 5mg PO TID on hold due to KEYANA -Metoprolol Tartrate 25mg PO BID -Daily weights, Fluid restriction, Keep HOB elevated, Monitor I/Os -Cardiology on consult, Dr Arguelles, help appreciated -Not on ACEi/ARB due to chronic hypotension -Bipap prn (patient does refuse the bipap and tries to take it off, educated the patient on importance of keeping bipap on) -Physical Therapy on board -LFTs elevated but downtrending, likely secondary to worsening CHF, will continue to monitor 2) Chronic Atrial fibrillation w/ AICD -Cardiology on consult, Dr. Arguelles, help appreciated -Chadsvasc score: 4- High risk for stroke, Hasbled: 2- Moderate risk for bleeding -Cardizem 20 mg given in ED, recieved one dose Digoxin 0.25mg 11/11/17 -Continue Metoprolol 25mg PO BID with holding parameters -Continue Digoxin 0.125mg daily -Lovenox 90 mg SC q12h discontinued -Coumadin 3mg PO today 3) History of Mechanical Mitral Valve -INR: 1.5 on admission (subtherapeutic), goal INR 2.5-3.5 -Patient was bridged with Lovenox 90mg Q12H (discontinued) -INR today 2.9 -Coumadin 3mg ordered -Monitor INR closely 4) History of Coronary Artery Disease -Aspirin 81mg PO QD 5) History of COPD -Solumedrol 40mg IV Q12H -Pulmicort 0.5mg Q12H -Duonebs -Pulm on consult, Dr Cobb, Help appreciated 6) Vertigo -Meclizine 12.5mg discontinued 7) Orthostatic Hypotension -Midodrine 5mg PO daily 8) Dementia -Will hold Memantine at this time 9) Acute Kidney Injury -BUN 71/1.7 today -Will hold Metolazone 5mg TID at this time and monitor kidney function -FeUrea 34.3% suggesting pre-renal etiology -Will continue to monitor at this time Prophylactic Measures -Pepcid 20 mg po daily -SCDs contraindicated due to b/l LE edema -Coumadin 3mg PO daily -Heart Healthy Diet DISPO: Patient is clear for discharge home, however unable to get in touch with the patients son for discharge. Will DC once family can be contacted for transportation.
[2017-11-20 10:57] LABS: LYMPHOCYTE 2 % (20-40); MONOCYTE 6 % (0-10); NEUTROPHIL 92 % (50-75); PLATELET ESTIMATE NORMAL (NORMAL); TOTAL CELLS COUNTED 100
[2017-11-20 10:58] LABS: ANISOCYTOSIS SLIGHT; OVALOCYTES SLIGHT
[2017-11-20] MEDS: metOLazone 5 MG TAB PO SCH ×2 (11:04→14:03)
[2017-11-20] MEDS: MethylPREDNISolone 40 mg Vial IV SCH ×2 (11:04→22:26)
[2017-11-20] MEDS: guaiFENesin 100 mg/5 ml Syrup UD PO PRN ×2 (11:05→22:52)
--- NOTE | 2017-11-20 12:47 | CP.PCM.PN ---
Subjective - Date & Time of Evaluation Date of Evaluation: 11/20/17 Time of Evaluation: 09:40 - Subjective Subjective: patient seen and examined Shortness of breath and cough improving Afebrile Objective - Vital Signs/Intake and Output Vital Signs (last 24 hours): Temp Pulse Resp BP Pulse Ox 97.2 F L 102 H 20 118/75 95 11/20/17 08:33 11/20/17 11:35 11/20/17 08:33 11/20/17 11:04 11/20/17 08:33 Intake and Output: 11/20/17 11/20/17 06:59 18:59 Intake Total 232 Output Total 600 Balance -368 - Medications Medications: Current Medications Albuterol Sulfate (Albuterol 0.042% Inhal Laura (1.25mg/3ml) Ud) 1.25 mg INH RQ6 [facility] Last Admin: 11/20/17 08:14 Dose: 1.25 mg Aspirin (Aspirin Chewable) 81 mg PO DAILY [facility] Last Admin: 11/20/17 11:05 Dose: 81 mg Budesonide (Pulmicort Respules) 0.5 mg INH RQ12 [facility] Last Admin: 11/20/17 08:14 Dose: 0.5 mg Digoxin (Lanoxin) 0.125 mg PO DAILY@1800 [facility] Last Admin: 11/19/17 17:34 Dose: 0.125 mg Famotidine (Pepcid) 20 mg PO DAILY [facility] Last Admin: 11/20/17 11:05 Dose: 20 mg Guaifenesin (Robitussin) 100 mg PO Q4H PRN PRN Reason: Cough Last Admin: 11/20/17 11:05 Dose: 100 mg Furosemide 100 mg/ Sodium (Chloride) 100 mls @ 4 mls/hr IVP .Q24H [facility] PRN Reason: 4 MG/HR Last Admin: 11/19/17 16:42 Dose: 4 mls/hr Methylprednisolone (Solu-Medrol) 40 mg IV Q12 [facility] Last Admin: 11/20/17 11:04 Dose: 40 mg Metolazone (Zaroxolyn) 5 mg PO TID [facility] Last Admin: 11/20/17 11:04 Dose: 5 mg Metoprolol Tartrate (Lopressor) 25 mg PO BID [facility] Last Admin: 11/20/17 11:04 Dose: 25 mg Midodrine (Proamatine) 5 mg PO DAILY [facility] Last Admin: 11/20/17 11:03 Dose: 5 mg Warfarin Sodium (Coumadin) 3 mg PO 1800 [facility] Stop: 11/20/17 18:01 - Labs Labs: 11/20/17 07:14 11/20/17 07:14 PT 34.0 SECONDS (9.7-12.2) H* D 11/20/17 07:14 INR 2.9 D 11/20/17 07:14 APTT 23 SECONDS (21-34) 11/11/17 09:58 - Eye Exam Eye Exam: EOMI - ENT Exam ENT Exam: Mucous Membranes Moist - Neck Exam Neck Exam: Normal Inspection - Respiratory Exam Respiratory Exam: Decreased Breath Sounds Assessment and Plan (1) Acute exacerbation of CHF (congestive heart failure) Assessment & Plan: continue present treatment Status: Acute (2) COPD (chronic obstructive pulmonary disease) Assessment & Plan: continue BiPAP as needed Taper steroids Nebulizer treatment Status: Acute (3) Chronic atrial fibrillation Status: Chronic
[2017-11-20] MEDS: Furosemide 100 MG in Sodium Chloride 0.9% 90 ML IVP SCH (17:00)
[2017-11-20] MEDS: Digoxin 125 mcg (0.125 mg) Tab PO SCH (17:20)
[2017-11-21] MEDS: Albuterol 0.042% Inhal Sol (1.25 mg/3 mL) UD INH SCH ×4 (01:44→19:37)
[2017-11-21] MEDS: Budesonide 0.5 mg/2 ml Inhal Susp UD INH SCH ×2 (08:18→19:37)
[2017-11-21] MEDS: MethylPREDNISolone 40 mg Vial IV SCH ×2 (10:11→21:04)
--- NOTE | 2017-11-21 15:32 | CP.PCM.PN ---
Subjective - Date & Time of Evaluation Date of Evaluation: 11/21/17 Time of Evaluation: 11:00 - Subjective Subjective: PGY2 medicine progress note for Dr. Otoole Patient seen and examined. Patient states he feels well and is eating well. Patient states he cannot leave because he does not know where to go. Patient's family not returning calls. Patient refusing labs and IV. Objective - Vital Signs/Intake and Output Vital Signs (last 24 hours): Temp Pulse Resp BP Pulse Ox 97.3 F L 64 20 107/70 100 11/21/17 11:00 11/21/17 11:00 11/21/17 11:00 11/21/17 11:00 11/21/17 11:00 Intake and Output: 11/21/17 11/21/17 06:59 18:59 Output Total 300 Balance -300 - Medications Medications: Current Medications Albuterol Sulfate (Albuterol 0.042% Inhal Laura (1.25mg/3ml) Ud) 1.25 mg INH RQ6 [facility] Last Admin: 11/21/17 14:05 Dose: 1.25 mg Aspirin (Aspirin Chewable) 81 mg PO DAILY [facility] Last Admin: 11/21/17 10:32 Dose: 81 mg Budesonide (Pulmicort Respules) 0.5 mg INH RQ12 [facility] Last Admin: 11/21/17 08:18 Dose: 0.5 mg Digoxin (Lanoxin) 0.125 mg PO DAILY@1800 [facility] Last Admin: 11/20/17 17:20 Dose: 0.125 mg Famotidine (Pepcid) 20 mg PO DAILY [facility] Last Admin: 11/21/17 10:32 Dose: 20 mg Furosemide (Lasix) 40 mg PO DAILY [facility] Guaifenesin (Robitussin) 100 mg PO Q4H PRN PRN Reason: Cough Last Admin: 11/20/17 22:52 Dose: 100 mg Methylprednisolone (Solu-Medrol) 40 mg IV Q12 [facility] Last Admin: 11/21/17 10:11 Dose: Not Given Metolazone (Zaroxolyn) 2.5 mg PO DAILY [facility] Metoprolol Tartrate (Lopressor) 25 mg PO BID [facility] Last Admin: 11/21/17 10:32 Dose: 25 mg Midodrine (Proamatine) 5 mg PO DAILY [facility] Last Admin: 11/21/17 10:37 Dose: Not Given - Labs Labs: 11/20/17 07:14 11/20/17 07:14 PT 34.0 SECONDS (9.7-12.2) H* D 11/20/17 07:14 INR 2.9 D 11/20/17 07:14 APTT 23 SECONDS (21-34) 11/11/17 09:58 - Constitutional Appears: No Acute Distress, Chronically Ill - Head Exam Head Exam: ATRAUMATIC, NORMOCEPHALIC - Eye Exam Eye Exam: EOMI - ENT Exam ENT Exam: Mucous Membranes Moist - Respiratory Exam Respiratory Exam: Rales (b/l bases) - Cardiovascular Exam Cardiovascular Exam: Irregular Rhythm, +S1, +S2 - GI/Abdominal Exam GI & Abdominal Exam: Soft, Normal Bowel Sounds. absent: Tenderness - Extremities Exam Extremities Exam: Pedal Edema Additional comments: b/l lower extremity stasis color changes - Neurological Exam Neurological Exam: Alert, Awake - Psychiatric Exam Psychiatric exam: Normal Affect - Skin Skin Exam: Warm Assessment and Plan - Assessment and Plan (Free Text) Assessment: 1) Systolic dysfunction with Acute on Chronic heart failure -Stable, afebrile -BNP on admission: 8160 -CXR 11/12/17: showed pulmonary venous congestion, small R pleural effusion, bibasilar atelectasis/infiltrate -Echo from 01/03/17 showed LVEF 12%, -Echo report 11/17/17: EF 10-15%, Systolic dysfunction severely impaired, mild to mod TR, mild Pulm HTN (see full report) -Cardiology on consult, Dr Arguelles, help appreciated -LFTs elevated but downtrending, likely secondary to worsening CHF, will continue to monitor -LFTs elevated but downtrending, likely secondary to worsening CHF, will continue to monitor -Not on ACEi/ARB due to chronic hypotension -Continue Digoxin 0.125mg -Metolazone 2.5mg PO daily -Lasix 40mg PO daily -Metoprolol Tartrate 25mg PO BID -Daily weights, Fluid restriction, Keep HOB elevated, Monitor I/Os -Bipap prn (patient does refuse the bipap and tries to take it off, educated the patient on importance of keeping bipap on) 2) Chronic Atrial fibrillation w/ AICD -Cardiology on consult, Dr. Arguelles, help appreciated -Chadsvasc score: 4- High risk for stroke, Hasbled: 2- Moderate risk for bleeding -Cardizem 20 mg given in ED, recieved one dose Digoxin 0.25mg 11/11/17 -Continue Metoprolol 25mg PO BID with holding parameters -Continue Digoxin 0.125mg daily -Coumadin 3mg PO tonight 3) History of Mechanical Mitral Valve -INR: 1.5 on admission (subtherapeutic), goal INR 2.5-3.5 -Patient was bridged with Lovenox 90mg Q12H (discontinued) -INR today 2.9 -Coumadin 3mg ordered -Monitor INR closely 4) History of Coronary Artery Disease -Aspirin 81mg PO QD 5) History of COPD -Solumedrol 40mg IV Q12H (started 11/19/17) -Pulmicort 0.5mg Q12H -Duonebs -Pulm on consult, Dr Cobb, Help appreciated 6) Vertigo -Meclizine 12.5mg discontinued due to sedation 7) Orthostatic Hypotension -Midodrine 5mg PO daily 8) Dementia -Will hold Memantine at this time 9) Acute Kidney Injury -BUN 71/1.7 yesterday, pt refused labs today -Will continue to monitor at this time -will decrease metolazone to 2.5mg daily rather than TID Prophylactic Measures -Pepcid 20 mg po daily -SCDs contraindicated due to b/l LE edema -Coumadin 3mg PO daily -Heart Healthy Diet DISPO: Patient is clear for discharge home, however unable to get in touch with the patients son for discharge. Will DC once family can be contacted for transportation. Patient seen and examined with Dr. Otoole. All medical management as per Dr. Otoole.
--- NOTE | 2017-11-21 17:22 | CP.PCM.PN ---
Subjective - Date & Time of Evaluation Date of Evaluation: 11/21/17 Time of Evaluation: 15:10 - Subjective Subjective: Patient seen and examined the Complaining of dyspnea on exertion Also complaining of cough Afebrile No chest pain Objective - Vital Signs/Intake and Output Vital Signs (last 24 hours): Temp Pulse Resp BP Pulse Ox 98.2 F 84 20 95/64 L 95 11/21/17 15:00 11/21/17 16:29 11/21/17 15:00 11/21/17 15:00 11/21/17 15:00 Intake and Output: 11/21/17 11/21/17 06:59 18:59 Intake Total 300 Output Total 300 Balance -300 300 - Medications Medications: Current Medications Albuterol Sulfate (Albuterol 0.042% Inhal Laura (1.25mg/3ml) Ud) 1.25 mg INH RQ6 [facility] Last Admin: 11/21/17 14:05 Dose: 1.25 mg Aspirin (Aspirin Chewable) 81 mg PO DAILY [facility] Last Admin: 11/21/17 10:32 Dose: 81 mg Budesonide (Pulmicort Respules) 0.5 mg INH RQ12 [facility] Last Admin: 11/21/17 08:18 Dose: 0.5 mg Digoxin (Lanoxin) 0.125 mg PO DAILY@1800 [facility] Last Admin: 11/20/17 17:20 Dose: 0.125 mg Famotidine (Pepcid) 20 mg PO DAILY [facility] Last Admin: 11/21/17 10:32 Dose: 20 mg Furosemide (Lasix) 40 mg PO DAILY [facility] Guaifenesin (Robitussin) 100 mg PO Q4H PRN PRN Reason: Cough Last Admin: 11/20/17 22:52 Dose: 100 mg Methylprednisolone (Solu-Medrol) 40 mg IV Q12 [facility] Last Admin: 11/21/17 10:11 Dose: Not Given Metolazone (Zaroxolyn) 2.5 mg PO DAILY [facility] Metoprolol Tartrate (Lopressor) 25 mg PO BID [facility] Last Admin: 11/21/17 10:32 Dose: 25 mg Midodrine (Proamatine) 5 mg PO DAILY [facility] Last Admin: 11/21/17 10:37 Dose: Not Given Warfarin Sodium (Coumadin) 3 mg PO 1800 [facility] Stop: 11/21/17 18:01 - Labs Labs: 11/20/17 07:14 11/20/17 07:14 PT 34.0 SECONDS (9.7-12.2) H* D 11/20/17 07:14 INR 2.9 D 11/20/17 07:14 APTT 23 SECONDS (21-34) 11/11/17 09:58 - Head Exam Head Exam: ATRAUMATIC, NORMOCEPHALIC - Eye Exam Eye Exam: Normal appearance - ENT Exam ENT Exam: Mucous Membranes Moist - Neck Exam Neck Exam: Normal Inspection - Respiratory Exam Respiratory Exam: Decreased Breath Sounds - Cardiovascular Exam Cardiovascular Exam: Irregular Rhythm - GI/Abdominal Exam GI & Abdominal Exam: Soft, Normal Bowel Sounds Assessment and Plan (1) Acute exacerbation of CHF (congestive heart failure) Assessment & Plan: continue diuretics on Coumadin Status: Acute (2) COPD (chronic obstructive pulmonary disease) Assessment & Plan: taper IV steroids Continue budesonide Continue nebulizer treatment Status: Acute (3) Chronic atrial fibrillation Status: Chronic
[2017-11-21 17:23] LABS: BASO % 0.1 % (0.0-2.0); HEMOGLOBIN 12.5 g/dL (12.0-18.0); LYMPH # 0.3 K/uL (1.0-4.3); LYMPH % 3.3 % (20.0-40.0); MEAN CELL VOLUME 80.5 fL (80.0-94.0); MEAN CORPUSCULAR HEMOGLOBIN 26.7 pg (27.0-31.0); MEAN CORPUSCULAR HGB CONC 33.2 g/dL (33.0-37.0); MEAN PLATELET VOLUME 8.3 fL (7.2-11.7); MONO # 1.1 K/uL (0.0-0.8); MONO % 11.5 % (0.0-10.0); NEUT # 8.4 K/uL (1.8-7.0); NEUT % 85.1 % (50.0-75.0); NRBC % 0.2 % (0.0-2.0); PLATELET COUNT 238 K/uL (130-400); RBC 4.68 Mil/uL (4.40-5.90); RED CELL DISTRIBUTION WIDTH 17.6 % (11.5-14.5); WHITE BLOOD COUNT 9.9 K/uL (4.8-10.8)
[2017-11-21] MEDS: Digoxin 125 mcg (0.125 mg) Tab PO SCH (17:39)
[2017-11-21 17:40] LABS: ALB/GLOB RATIO 1.3 (1.0-2.1); ALBUMIN 3.7 g/dL (3.5-5.0); ALT/SGPT 210 U/L (21-72); AST/SGOT 101 U/L (17-59); BLOOD UREA NITROGEN 68 mg/dL (9-20); CALCIUM 9.4 mg/dl (8.6-10.4); GFR AFRICAN-AMERICAN > 60; GFR NON-AFRICAN AMERICAN 50
[2017-11-21 17:56] LABS: INR 1.9; PROTHROMBIN TIME 21.6 SECONDS (9.7-12.2)
[2017-11-21 18:57] LABS: BANDS 5 % (0-2); LYMPHOCYTE 5 % (20-40); MONOCYTE 14 % (0-10); NEUTROPHIL 76 % (50-75); PLATELET ESTIMATE NORMAL (NORMAL); TOTAL CELLS COUNTED 100
[2017-11-21 18:58] LABS: ANISOCYTOSIS SLIGHT; HYPOCHROMIC MODERATE; LARGE PLATELETS PRESENT; MICROCYTOSIS SLIGHT; POIKILOCYTOSIS SLIGHT; SMUDGE CELLS PRESENT; TOXIC GRANULATION PRESENT
[2017-11-21] MEDS ORDERED: Potassium Chloride 20 mEq ER Tab PO ONE ×2 (20:15→22:00)
[2017-11-21] MEDS: guaiFENesin 100 mg/5 ml Syrup UD PO PRN (21:17)
[2017-11-22] MEDS: Albuterol 0.042% Inhal Sol (1.25 mg/3 mL) UD INH SCH ×3 (08:10→20:06)
[2017-11-22] MEDS: Budesonide 0.5 mg/2 ml Inhal Susp UD INH SCH ×2 (08:10→20:05)
[2017-11-22] MEDS ORDERED: Potassium Chloride 20 mEq ER Tab PO ONE (08:59)
[2017-11-22] MEDS: MethylPREDNISolone 40 mg Vial IV SCH ×2 (09:35→21:54)
[2017-11-22] MEDS ORDERED: metOLazone 5 MG TAB PO SCH (10:00)
[2017-11-22] MEDS: metOLazone 2.5 MG TAB PO SCH (10:52)
[2017-11-22 11:46] LABS: INR 1.9; PROTHROMBIN TIME 22.5 SECONDS (9.7-12.2)
[2017-11-22 11:52] LABS: BASO % 0.1 % (0.0-2.0); EOS % 0.1 % (0.0-4.0); HEMOGLOBIN 12.7 g/dL (12.0-18.0); LYMPH # 0.2 K/uL (1.0-4.3); LYMPH % 1.6 % (20.0-40.0); MEAN CELL VOLUME 81.3 fL (80.0-94.0); MEAN PLATELET VOLUME 8.2 fL (7.2-11.7); MONO # 1.2 K/uL (0.0-0.8); NEUT # 9.7 K/uL (1.8-7.0); NEUT % 87.2 % (50.0-75.0); NRBC % 0.1 % (0.0-2.0); PLATELET COUNT 268 K/uL (130-400); RED CELL DISTRIBUTION WIDTH 17.9 % (11.5-14.5); WHITE BLOOD COUNT 11.1 K/uL (4.8-10.8)
[2017-11-22 12:17] LABS: ALB/GLOB RATIO 1.3 (1.0-2.1); ALBUMIN 3.8 g/dL (3.5-5.0); ALT/SGPT 257 U/L (21-72); AST/SGOT 123 U/L (17-59); BLOOD UREA NITROGEN 54 mg/dL (9-20); CALCIUM 9.4 mg/dl (8.6-10.4); GFR AFRICAN-AMERICAN > 60; GFR NON-AFRICAN AMERICAN 54
[2017-11-22 12:19] LABS: BANDS 1 % (0-2); LYMPHOCYTE 1 % (20-40); MONOCYTE 11 % (0-10); NEUTROPHIL 86 % (50-75); PLATELET ESTIMATE NORMAL (NORMAL); REACTIVE LYMPHOCYTES 1 % (0-0); TOTAL CELLS COUNTED 100
[2017-11-22 12:20] LABS: HYPOCHROMIC SLIGHT; OVALOCYTES SLIGHT; POIKILOCYTOSIS SLIGHT; POLYCHROMIC SLIGHT
[2017-11-22 12:21] LABS: LARGE PLATELETS PRESENT
[2017-11-22 12:23] LABS: ANISOCYTOSIS MODERATE
--- NOTE | 2017-11-22 14:34 | CP.PCM.PN ---
Subjective - Date & Time of Evaluation Date of Evaluation: 11/22/17 Time of Evaluation: 09:30 - Subjective Subjective: PGY2 medicine progress note for Dr. Otoole Patient seen and examined. Per nursing staff, patient was agitated earlier this morning, but patient is now calm and resting in chair. Patient is not walking around much and states he cannot walk far. Patient denies other complaints at this time. Objective - Vital Signs/Intake and Output Vital Signs (last 24 hours): Temp Pulse Resp BP Pulse Ox 97.5 F L 91 H 20 114/60 95 11/22/17 07:00 11/22/17 07:00 11/22/17 07:00 11/22/17 09:32 11/22/17 07:00 Intake and Output: 11/22/17 11/22/17 06:59 18:59 Intake Total 600 Balance 600 - Medications Medications: Current Medications Albuterol Sulfate (Albuterol 0.042% Inhal Laura (1.25mg/3ml) Ud) 1.25 mg INH RQ6 [facility] Last Admin: 11/22/17 13:54 Dose: 1.25 mg Aspirin (Aspirin Chewable) 81 mg PO DAILY [facility] Last Admin: 11/22/17 09:32 Dose: 81 mg Budesonide (Pulmicort Respules) 0.5 mg INH RQ12 [facility] Last Admin: 11/22/17 08:10 Dose: 0.5 mg Digoxin (Lanoxin) 0.125 mg PO DAILY@1800 [facility] Last Admin: 11/21/17 17:39 Dose: 0.125 mg Famotidine (Pepcid) 20 mg PO DAILY [facility] Last Admin: 11/22/17 09:31 Dose: 20 mg Furosemide (Lasix) 40 mg PO DAILY [facility] Last Admin: 11/22/17 09:31 Dose: 40 mg Guaifenesin (Robitussin) 100 mg PO Q4H PRN PRN Reason: Cough Last Admin: 11/21/17 21:17 Dose: 100 mg Methylprednisolone (Solu-Medrol) 20 mg IV Q12 [facility] Last Admin: 11/22/17 09:35 Dose: 20 mg Metolazone (Zaroxolyn) 2.5 mg PO DAILY [facility] Last Admin: 11/22/17 10:52 Dose: 2.5 mg Metoprolol Tartrate (Lopressor) 25 mg PO BID [facility] Last Admin: 11/22/17 09:32 Dose: 25 mg Midodrine (Proamatine) 5 mg PO DAILY [facility] Last Admin: 11/22/17 09:32 Dose: 5 mg Warfarin Sodium (Coumadin) 3 mg PO 1800 [facility] Stop: 11/22/17 18:01 - Labs Labs: 11/22/17 11:32 11/22/17 11:32 PT 22.5 SECONDS (9.7-12.2) H 11/22/17 11:32 INR 1.9 11/22/17 11:32 APTT 30 SECONDS (21-34) 11/21/17 17:16 - Constitutional Appears: No Acute Distress, Unkempt, Chronically Ill - Head Exam Head Exam: ATRAUMATIC - Eye Exam Eye Exam: EOMI - ENT Exam ENT Exam: Mucous Membranes Moist - Respiratory Exam Respiratory Exam: Rales - Cardiovascular Exam Cardiovascular Exam: Irregular Rhythm, +S1, +S2 - GI/Abdominal Exam GI & Abdominal Exam: Soft. absent: Tenderness - Extremities Exam Additional comments: 1+ pitting edema with chronic stasis color changes - Neurological Exam Neurological Exam: Alert, Awake - Skin Skin Exam: Warm Assessment and Plan - Assessment and Plan (Free Text) Assessment: 1) Systolic dysfunction with Acute on Chronic heart failure -Stable, afebrile -BNP on admission: 8160 -CXR 11/12/17: showed pulmonary venous congestion, small R pleural effusion, bibasilar atelectasis/infiltrate -Echo from 01/03/17 showed LVEF 12%, -Echo report 11/17/17: EF 10-15%, Systolic dysfunction severely impaired, mild to mod TR, mild Pulm HTN (see full report) -Cardiology on consult, Dr Arguelles, help appreciated -LFTs elevated but downtrending, likely secondary to worsening CHF, will continue to monitor -LFTs elevated but downtrending, likely secondary to worsening CHF, will continue to monitor -Not on ACEi/ARB due to chronic hypotension -Continue Digoxin 0.125mg -Metolazone 2.5mg PO daily -Lasix 40mg PO daily -Metoprolol Tartrate 25mg PO BID -Daily weights, Fluid restriction, Keep HOB elevated, Monitor I/Os -Bipap prn (patient does refuse the bipap and tries to take it off, educated the patient on importance of keeping bipap on) 2) Chronic Atrial fibrillation w/ AICD -Cardiology on consult, Dr. Arguelles, help appreciated -Chadsvasc score: 4- High risk for stroke, Hasbled: 2- Moderate risk for bleeding -Cardizem 20 mg given in ED, recieved one dose Digoxin 0.25mg 11/11/17 -Continue Metoprolol 25mg PO BID with holding parameters -Continue Digoxin 0.125mg daily -Coumadin 3mg PO tonight 3) History of Mechanical Mitral Valve -INR: 1.5 on admission (subtherapeutic), goal INR 2.5-3.5 -Patient was bridged with Lovenox 90mg Q12H (discontinued) -INR today 1.9 -Coumadin 3mg ordered -Monitor INR closely -diet to exclude leafy green vegetables 4) History of Coronary Artery Disease -Aspirin 81mg PO QD 5) History of COPD -Solumedrol 20mg IV Q12H (started 11/22/17) -Pulmicort 0.5mg Q12H -Duonebs -Pulm on consult, Dr Cobb, Help appreciated 6) Vertigo -Meclizine 12.5mg discontinued due to sedation 7) Orthostatic Hypotension -Midodrine 5mg PO daily 8) Dementia -Will hold Memantine at this time 9) Acute Kidney Injury -BUN 54/1.3 today, improved since decreasing diuretics -Will continue to monitor at this time Prophylactic Measures -Pepcid 20 mg po daily -SCDs contraindicated due to b/l LE edema -Coumadin 3mg PO daily -Heart Healthy Diet DISPO: Patient is clear for discharge home, however unable to get in touch with the patients son for discharge. Will DC once family can be contacted for transportation. All medical management as per Dr. Otoole.
[2017-11-22] MEDS: Digoxin 125 mcg (0.125 mg) Tab PO SCH (17:15)
[2017-11-23] MEDS: Albuterol 0.042% Inhal Sol (1.25 mg/3 mL) UD INH SCH ×4 (01:34→19:04)
[2017-11-23] MEDS: Budesonide 0.5 mg/2 ml Inhal Susp UD INH SCH ×2 (07:06→19:04)
--- NOTE | 2017-11-23 07:46 | CP.PCM.PN ---
Subjective - Date & Time of Evaluation Date of Evaluation: 11/23/17 Time of Evaluation: 07:46 - Subjective Subjective: Medicine Progress note for Dr. Otoole's service Patient was seen and examined at bedside in no acute distress. Patient was sitting in chair. He reports feeling short of breath, but otherwise has no complaints. He says his shortness of breath worsens when laying down, which is affecting his sleep. Patient denies having chest pain, abdominal pain, headaches , leg pain, nausea, vomiting, diarrhea/constipation. Objective - Vital Signs/Intake and Output Vital Signs (last 24 hours): Temp Pulse Resp BP Pulse Ox 97.9 F 96 H 20 94/58 L 96 11/22/17 23:58 11/23/17 01:40 11/22/17 23:58 11/22/17 23:58 11/22/17 23:58 - Medications Medications: Current Medications Albuterol Sulfate (Albuterol 0.042% Inhal Laura (1.25mg/3ml) Ud) 1.25 mg INH RQ6 [facility] Last Admin: 11/23/17 07:06 Dose: Not Given Aspirin (Aspirin Chewable) 81 mg PO DAILY [facility] Last Admin: 11/22/17 09:32 Dose: 81 mg Budesonide (Pulmicort Respules) 0.5 mg INH RQ12 [facility] Last Admin: 11/23/17 07:06 Dose: Not Given Digoxin (Lanoxin) 0.125 mg PO DAILY@1800 [facility] Last Admin: 11/22/17 17:15 Dose: 0.125 mg Famotidine (Pepcid) 20 mg PO DAILY [facility] Last Admin: 11/22/17 09:31 Dose: 20 mg Furosemide (Lasix) 40 mg PO DAILY [facility] Last Admin: 11/22/17 09:31 Dose: 40 mg Guaifenesin (Robitussin) 100 mg PO Q4H PRN PRN Reason: Cough Last Admin: 11/21/17 21:17 Dose: 100 mg Methylprednisolone (Solu-Medrol) 20 mg IV Q12 [facility] Last Admin: 11/22/17 21:54 Dose: 20 mg Metolazone (Zaroxolyn) 2.5 mg PO DAILY [facility] Last Admin: 11/22/17 10:52 Dose: 2.5 mg Metoprolol Tartrate (Lopressor) 25 mg PO BID [facility] Last Admin: 11/22/17 17:15 Dose: 25 mg Midodrine (Proamatine) 5 mg PO DAILY [facility] Last Admin: 11/22/17 09:32 Dose: 5 mg - Labs Labs: 11/22/17 11:32 11/22/17 11:32 PT 22.5 SECONDS (9.7-12.2) H 11/22/17 11:32 INR 1.9 11/22/17 11:32 APTT 30 SECONDS (21-34) 11/21/17 17:16 - Constitutional Appears: No Acute Distress - Head Exam Head Exam: ATRAUMATIC, NORMAL INSPECTION - Eye Exam Eye Exam: EOMI - ENT Exam ENT Exam: Mucous Membranes Moist - Respiratory Exam Respiratory Exam: Decreased Breath Sounds, Rales. absent: Clear to Ausculation Bilateral - Cardiovascular Exam Cardiovascular Exam: Irregular Rhythm, +S1, +S2 - GI/Abdominal Exam GI & Abdominal Exam: Soft, Normal Bowel Sounds. absent: Distended, Firm, Tenderness - Extremities Exam Extremities Exam: Pedal Edema (extending from knee down to ankle b/l). absent: Tenderness - Neurological Exam Neurological Exam: Alert, Awake - Psychiatric Exam Psychiatric exam: Normal Affect, Normal Mood - Skin Skin Exam: Dry, Intact, Warm Assessment and Plan - Assessment and Plan (Free Text) Plan: 1) Systolic dysfunction with Acute on Chronic heart failure -Stable, afebrile -BNP on admission: 8160 -CXR 11/12/17: showed pulmonary venous congestion, small R pleural effusion, bibasilar atelectasis/infiltrate -Echo from 01/03/17 showed LVEF 12%, -Echo report 11/17/17: EF 10-15%, Systolic dysfunction severely impaired, mild to mod TR, mild Pulm HTN (see full report) -Cardiology on consult, Dr Arguelles, help appreciated -LFTs elevated but downtrending, likely secondary to worsening CHF, will continue to monitor -LFTs elevated but downtrending, likely secondary to worsening CHF, will continue to monitor -Not on ACEi/ARB due to chronic hypotension -Continue Digoxin 0.125mg -Metolazone 2.5mg PO daily -Lasix 40mg PO daily -Metoprolol Tartrate 25mg PO BID -Daily weights, Fluid restriction, Keep HOB elevated, Monitor I/Os -Bipap prn (patient does refuse the bipap and tries to take it off, educated the patient on importance of keeping bipap on) 2) Chronic Atrial fibrillation w/ AICD -Cardiology on consult, Dr. Arguelles, help appreciated -Chadsvasc score: 4- High risk for stroke, Hasbled: 2- Moderate risk for bleeding -Cardizem 20 mg given in ED, received one dose Digoxin 0.25mg 11/11/17 -Continue Metoprolol 25mg PO BID with holding parameters -Continue Digoxin 0.125mg daily -Coumadin 3mg PO tonight 3) History of Mechanical Mitral Valve -INR: 1.5 on admission (subtherapeutic), goal INR 2.5-3.5 -Patient was bridged with Lovenox 90mg Q12H (discontinued) -INR today 1.9 on 11/22 -Coumadin 3mg ordered -Monitor INR closely -diet to exclude leafy green vegetables 4) History of Coronary Artery Disease -Aspirin 81mg PO QD 5) History of COPD -Solumedrol 20mg IV Q12H (started 11/22/17) -Pulmicort 0.5mg Q12H -Duonebs -Pulm on consult, Dr Cobb, Help appreciated 6) Vertigo -Meclizine 12.5mg discontinued due to sedation 7) Orthostatic Hypotension -Midodrine 5mg PO daily 8) Dementia -Will hold Memantine at this time 9) Acute Kidney Injury -BUN 54/1.3 on 11/22, improved since decreasing diuretics -Will continue to monitor at this time Prophylactic Measures -Pepcid 20 mg po daily -SCDs contraindicated due to b/l LE edema -Coumadin 3mg PO daily -Heart Healthy Diet DISPO: Patient is clear for discharge home, however unable to get in touch with the patients son for discharge. Will DC once family can be contacted for transportation. Will discuss with Dr. Otoole.
[2017-11-23] MEDS: MethylPREDNISolone 40 mg Vial IV SCH ×2 (10:45→21:31)
[2017-11-23] MEDS: metOLazone 2.5 MG TAB PO SCH (10:45)
[2017-11-23] MEDS: Digoxin 125 mcg (0.125 mg) Tab PO SCH (17:55)
--- NOTE | 2017-11-23 18:12 | CP.PCM.PN ---
Subjective - Date & Time of Evaluation Date of Evaluation: 11/23/17 Time of Evaluation: 08:30 - Subjective Subjective: patient seen and examined Cough and shortness of breath much improved but still has dyspnea on exertion Afebrile Denies any chest pain Off BiPAP Ambulatory Objective - Vital Signs/Intake and Output Vital Signs (last 24 hours): Temp Pulse Resp BP Pulse Ox 97.7 F 75 20 99/62 L 94 L 11/23/17 16:00 11/23/17 16:00 11/23/17 16:00 11/23/17 16:00 11/23/17 16:00 - Medications Medications: Current Medications Albuterol Sulfate (Albuterol 0.042% Inhal Laura (1.25mg/3ml) Ud) 1.25 mg INH RQ6 [facility] Last Admin: 11/23/17 13:21 Dose: 1.25 mg Aspirin (Aspirin Chewable) 81 mg PO DAILY [facility] Last Admin: 11/23/17 10:44 Dose: 81 mg Budesonide (Pulmicort Respules) 0.5 mg INH RQ12 [facility] Last Admin: 11/23/17 07:06 Dose: Not Given Digoxin (Lanoxin) 0.125 mg PO DAILY@1800 [facility] Last Admin: 11/23/17 17:55 Dose: 0.125 mg Famotidine (Pepcid) 20 mg PO DAILY [facility] Last Admin: 11/23/17 10:44 Dose: 20 mg Furosemide (Lasix) 40 mg PO DAILY [facility] Last Admin: 11/23/17 10:44 Dose: 40 mg Guaifenesin (Robitussin) 100 mg PO Q4H PRN PRN Reason: Cough Last Admin: 11/21/17 21:17 Dose: 100 mg Methylprednisolone (Solu-Medrol) 20 mg IV Q12 [facility] Last Admin: 11/23/17 10:45 Dose: 20 mg Metolazone (Zaroxolyn) 2.5 mg PO DAILY [facility] Last Admin: 11/23/17 10:45 Dose: Not Given Metoprolol Tartrate (Lopressor) 25 mg PO BID [facility] Last Admin: 11/23/17 17:50 Dose: Not Given Midodrine (Proamatine) 5 mg PO DAILY [facility] Last Admin: 11/23/17 10:44 Dose: 5 mg Warfarin Sodium (Coumadin) 3 mg PO 1800 [facility] Stop: 11/23/17 18:01 - Labs Labs: 11/22/17 11:32 11/22/17 11:32 PT 22.5 SECONDS (9.7-12.2) H 11/22/17 11:32 INR 1.9 11/22/17 11:32 APTT 30 SECONDS (21-34) 11/21/17 17:16 Assessment and Plan (1) Acute exacerbation of CHF (congestive heart failure) Status: Acute (2) COPD (chronic obstructive pulmonary disease) Status: Acute (3) Chronic atrial fibrillation Status: Chronic
[2017-11-24] MEDS: Albuterol 0.042% Inhal Sol (1.25 mg/3 mL) UD INH SCH ×4 (01:40→19:43)
--- NOTE | 2017-11-24 06:46 | CP.PCM.PN ---
Subjective - Date & Time of Evaluation Date of Evaluation: 11/24/17 Time of Evaluation: 06:46 - Subjective Subjective: Medicine progress note for Dr. Otoole's service Patient was seen and examined at bedside in no acute distress. Patient was complaining of shortness of breath/difficultly breathing; however, he still does not want to use BiPap. He also states he sometimes feels dizzy if he stands up quickly. Patient denies chest pain, abdominal pain, leg pain, nausea, vomiting, fevers, and headaches. Objective - Vital Signs/Intake and Output Vital Signs (last 24 hours): Temp Pulse Resp BP Pulse Ox 97 F L 97 H 20 109/75 95 11/23/17 23:30 11/24/17 01:06 11/23/17 23:30 11/23/17 23:30 11/23/17 23:30 - Medications Medications: Current Medications Albuterol Sulfate (Albuterol 0.042% Inhal Laura (1.25mg/3ml) Ud) 1.25 mg INH RQ6 [facility] Last Admin: 11/24/17 01:40 Dose: Not Given Aspirin (Aspirin Chewable) 81 mg PO DAILY [facility] Last Admin: 11/23/17 10:44 Dose: 81 mg Budesonide (Pulmicort Respules) 0.5 mg INH RQ12 [facility] Last Admin: 11/23/17 19:04 Dose: 0.5 mg Digoxin (Lanoxin) 0.125 mg PO DAILY@1800 [facility] Last Admin: 11/23/17 17:55 Dose: 0.125 mg Famotidine (Pepcid) 20 mg PO DAILY [facility] Last Admin: 11/23/17 10:44 Dose: 20 mg Furosemide (Lasix) 40 mg PO DAILY [facility] Last Admin: 11/23/17 10:44 Dose: 40 mg Guaifenesin (Robitussin) 100 mg PO Q4H PRN PRN Reason: Cough Last Admin: 11/21/17 21:17 Dose: 100 mg Methylprednisolone (Solu-Medrol) 20 mg IV Q12 [facility] Last Admin: 11/23/17 21:31 Dose: 20 mg Metolazone (Zaroxolyn) 2.5 mg PO DAILY [facility] Last Admin: 11/23/17 10:45 Dose: Not Given Metoprolol Tartrate (Lopressor) 25 mg PO BID [facility] Last Admin: 11/23/17 17:50 Dose: Not Given Midodrine (Proamatine) 5 mg PO DAILY [facility] Last Admin: 11/23/17 10:44 Dose: 5 mg Warfarin Sodium (Coumadin) 3 mg PO 1800 [facility] Stop: 11/23/17 18:01 - Labs Labs: 11/22/17 11:32 11/22/17 11:32 PT 22.5 SECONDS (9.7-12.2) H 11/22/17 11:32 INR 1.9 11/22/17 11:32 APTT 30 SECONDS (21-34) 11/21/17 17:16 - Additional Findings Additional findings: - Constitutional Appears: No Acute Distress - Head Exam Head Exam: ATRAUMATIC, NORMAL INSPECTION - Eye Exam Eye Exam: EOMI - ENT Exam ENT Exam: Mucous Membranes Moist - Respiratory Exam Respiratory Exam: Decreased Breath Sounds, Rales, wheezing. absent: Clear to Ausculation Bilateral - Cardiovascular Exam Cardiovascular Exam: Irregular Rhythm, +S1, +S2 - GI/Abdominal Exam GI & Abdominal Exam: Soft, Normal Bowel Sounds. absent: Distended, Firm, Tenderness - Extremities Exam Extremities Exam: Pedal Edema (extending from knee down to ankle b/l). absent: Tenderness - Neurological Exam Neurological Exam: Alert, Awake - Psychiatric Exam Psychiatric exam: Normal Affect, Normal Mood - Skin Skin Exam: Dry, Intact, Warm Assessment and Plan - Assessment and Plan (Free Text) Plan: 1) Systolic dysfunction with Acute on Chronic heart failure * Stable, afebrile * BNP on admission: 8160 * CXR 11/12/17: showed pulmonary venous congestion, small R pleural effusion, bibasilar atelectasis/infiltrate * Echo from 01/03/17 showed LVEF 12%, * Echo report 11/17/17: EF 10-15%, Systolic dysfunction severely impaired, mild to mod TR, mild Pulm HTN (see full report) * Cardiology on consult, Dr Arguelles, help appreciated * LFTs elevated but downtrending, likely secondary to worsening CHF, will continue to monitor * Not on ACEi/ARB due to chronic hypotension * Continue Digoxin 0.125mg * Metolazone 2.5mg PO daily * Lasix 40mg PO daily * Metoprolol Tartrate 25mg PO BID * Daily weights, Fluid restriction, Keep HOB elevated, Monitor I/Os * Bipap prn (patient does refuse the bipap and tries to take it off, educated the patient on importance of keeping bipap on) * Patient CO2 increased to 40 on 11/24/17-- need to enforce use of BiPap; discussed and educated patient importance of using bipap. * Repeat CXR (11/24/17): moderate cardiomegaly; improving pulmonary venous congestion and persistent small right pleural effusion. 2) Chronic Atrial fibrillation w/ AICD * Cardiology on consult, Dr. Arguelles, help appreciated * Chadsvasc score: 4- High risk for stroke, Hasbled: 2- Moderate risk for bleeding * Cardizem 20 mg given in ED, received one dose Digoxin 0.25mg 11/11/17 * Continue Metoprolol 25mg PO BID with holding parameters * Continue Digoxin 0.125mg daily * Coumadin 3mg PO tonight 3) History of Mechanical Mitral Valve * INR: 1.5 on admission (subtherapeutic), goal INR 2.5-3.5 * Patient was bridged with Lovenox 90mg Q12H (discontinued) * Coumadin 3mg ordered * Diet to exclude leafy green vegetables * Monitor INR closely * 11/23- patient refused blood work. pharmacy will not authorize giving coumadin unless INR is drawn. Coumadin was not given on 11/23/17. * INR was drawn on 11/24/17-- INR 1.5. Coumadin 3mg PO ordered for tonight. Coumadin must be given nightly to reach therapeutic range. 4) History of Coronary Artery Disease * Aspirin 81mg PO QD 5) History of COPD * Solumedrol 20mg IV Q12H (started 11/22/17) * Pulmicort 0.5mg Q12H * Duonebs * Pulm on consult, Dr Cobb, Help appreciated 6) Vertigo * Meclizine 12.5mg discontinued due to sedation 7) Orthostatic Hypotension * Midodrine 5mg PO daily 8) Dementia * Will hold Memantine at this time 9) Acute Kidney Injury * BUN 47/1.2 on 11/24, improved since decreasing diuretics * Will continue to monitor at this time Prophylactic Measures * Pepcid 20 mg po daily * SCDs contraindicated due to b/l LE edema * Coumadin 3mg PO daily * Heart Healthy Diet DISPO: Pending placement in rehab. Discussed with Dr. Otoole.
[2017-11-24] MEDS: Budesonide 0.5 mg/2 ml Inhal Susp UD INH SCH ×2 (07:22→19:43)
[2017-11-24] MEDS: MethylPREDNISolone 40 mg Vial IV SCH ×2 (09:38→21:10)
[2017-11-24] MEDS: metOLazone 2.5 MG TAB PO SCH (09:39)
[2017-11-24] MEDS: guaiFENesin 100 mg/5 ml Syrup UD PO PRN (09:40)
[2017-11-24 10:20] LABS: EOS % 0.1 % (0.0-4.0); LYMPH # 0.3 K/uL (1.0-4.3); LYMPH % 2.5 % (20.0-40.0); MEAN CELL VOLUME 80.8 fL (80.0-94.0); MEAN CORPUSCULAR HEMOGLOBIN 25.6 pg (27.0-31.0); MEAN CORPUSCULAR HGB CONC 31.7 g/dL (33.0-37.0); MEAN PLATELET VOLUME 8.4 fL (7.2-11.7); MONO # 1.3 K/uL (0.0-0.8); MONO % 9.8 % (0.0-10.0); NEUT # 11.7 K/uL (1.8-7.0); NEUT % 87.6 % (50.0-75.0); PLATELET COUNT 255 K/uL (130-400); RBC 5.05 Mil/uL (4.40-5.90); RED CELL DISTRIBUTION WIDTH 17.5 % (11.5-14.5); WHITE BLOOD COUNT 13.4 K/uL (4.8-10.8)
[2017-11-24 10:31] LABS: INR 1.5; PROTHROMBIN TIME 17.7 SECONDS (9.7-12.2)
[2017-11-24 10:37] LABS: ALBUMIN 3.5 g/dL (3.5-5.0); ALT/SGPT 169 U/L (21-72); AST/SGOT 54 U/L (17-59); BLOOD UREA NITROGEN 47 mg/dL (9-20); CALCIUM 9.4 mg/dl (8.6-10.4); GFR AFRICAN-AMERICAN > 60; GFR NON-AFRICAN AMERICAN 60
[2017-11-24 11:12] LABS: ANISOCYTOSIS SLIGHT; LYMPHOCYTE 3 % (20-40); MONOCYTE 11 % (0-10); NEUTROPHIL 86 % (50-75); PLATELET ESTIMATE NORMAL (NORMAL); TOTAL CELLS COUNTED 100
[2017-11-24 11:13] LABS: OVALOCYTES SLIGHT; POIKILOCYTOSIS SLIGHT; TARGET CELLS SLIGHT
--- NOTE | 2017-11-24 13:55 | RAD ---
HISTORY: Shortness of breath COMPARISON: 11/18/2017. FINDINGS: LUNGS: The lungs are well inflated. There is haziness in the right lower lobe. There is interval mild improvement in mild pulmonary venous congestion. PLEURA: Small right pleural effusion. No pneumothorax apparent. CARDIOVASCULAR: There is persistent moderate cardiomegaly. Status post CABG and aortic valve replacement. There is stable position of a left-sided transvenous permanent pacing device. OSSEOUS STRUCTURES: No significant abnormalities. VISUALIZED UPPER ABDOMEN: Normal. OTHER FINDINGS: None. IMPRESSION: Moderate cardiomegaly, improving pulmonary venous congestion and persistent small right pleural effusion.
[2017-11-24] MEDS: Digoxin 125 mcg (0.125 mg) Tab PO SCH (17:39)
--- NOTE | 2017-11-24 18:14 | CP.PCM.PN ---
Subjective - Date & Time of Evaluation Date of Evaluation: 11/24/17 Time of Evaluation: 11:00 - Subjective Subjective: Pt was seen and evaluated at bedside. Pt in NAD, sitting in chair. On 2L NC. Complains of some shortness of breath and occassional cough, which has improved overall. Pt denies chest pain, hemoptysis, fever, and chills. Exam: Clinically improved Lungs: Slightly diminsihed breath sounds bilaterally Ext: bilateral lower extremity edema R>L, slight improvement A/P: CHF continue present treatment COPD continue nebulizer continue budesonide Taper steroid Pt may be discharged from pulmonary standpoint with PO steroids 11/24/17-Moderate cardiomegaly, improving pulmonary venous congestion and persistent small right pleural effusion. Objective - Vital Signs/Intake and Output Vital Signs (last 24 hours): Temp Pulse Resp BP Pulse Ox 97.5 F L 90 20 110/80 98 11/24/17 07:00 11/24/17 08:00 11/24/17 07:00 11/24/17 17:39 11/24/17 07:00 - Medications Medications: Current Medications Albuterol Sulfate (Albuterol 0.042% Inhal Laura (1.25mg/3ml) Ud) 1.25 mg INH RQ6 [facility] Last Admin: 11/24/17 13:22 Dose: 1.25 mg Aspirin (Aspirin Chewable) 81 mg PO DAILY [facility] Last Admin: 11/24/17 09:37 Dose: 81 mg Budesonide (Pulmicort Respules) 0.5 mg INH RQ12 [facility] Last Admin: 11/24/17 07:22 Dose: 0.5 mg Digoxin (Lanoxin) 0.125 mg PO DAILY@1800 [facility] Last Admin: 11/24/17 17:39 Dose: 0.125 mg Famotidine (Pepcid) 20 mg PO DAILY [facility] Last Admin: 11/24/17 09:37 Dose: 20 mg Furosemide (Lasix) 40 mg PO DAILY [facility] Last Admin: 11/24/17 09:37 Dose: 40 mg Guaifenesin (Robitussin) 100 mg PO Q4H PRN PRN Reason: Cough Last Admin: 11/24/17 09:40 Dose: 100 mg Methylprednisolone (Solu-Medrol) 20 mg IV Q12 [facility] Last Admin: 11/24/17 09:38 Dose: 20 mg Metolazone (Zaroxolyn) 2.5 mg PO DAILY [facility] Last Admin: 11/24/17 09:39 Dose: 2.5 mg Metoprolol Tartrate (Lopressor) 25 mg PO BID [facility] Last Admin: 11/24/17 17:39 Dose: 25 mg Midodrine (Proamatine) 5 mg PO DAILY [facility] Last Admin: 11/24/17 09:38 Dose: 5 mg - Labs Labs: 11/24/17 10:05 11/24/17 10:05 PT 17.7 SECONDS (9.7-12.2) H 11/24/17 10:05 INR 1.5 11/24/17 10:05 APTT 29 SECONDS (21-34) 11/24/17 10:05 Assessment and Plan (1) Acute exacerbation of CHF (congestive heart failure) Status: Acute (2) COPD (chronic obstructive pulmonary disease) Status: Acute (3) Chronic atrial fibrillation Status: Chronic
[2017-11-25] MEDS: Albuterol 0.042% Inhal Sol (1.25 mg/3 mL) UD INH SCH ×4 (02:23→19:26)
--- NOTE | 2017-11-25 07:13 | CP.PCM.PN ---
Subjective - Date & Time of Evaluation Date of Evaluation: 11/25/17 Time of Evaluation: 07:13 - Subjective Subjective: Medicine progress note for Dr. Otoole's service Patient was seen and examined at bedside in no acute distress. Patient reports his shortness of breath/difficultly breathing is slightly better today. Patient reports he is eating well and has normal bowel movements. Patient denies chest pain, abdominal pain, leg pain, nausea, vomiting, fevers, and headaches. Objective - Vital Signs/Intake and Output Vital Signs (last 24 hours): Temp Pulse Resp BP Pulse Ox 98.4 F 93 H 20 110/80 98 11/24/17 14:00 11/25/17 01:00 11/24/17 14:00 11/24/17 17:39 11/24/17 14:00 - Medications Medications: Current Medications Albuterol Sulfate (Albuterol 0.042% Inhal Laura (1.25mg/3ml) Ud) 1.25 mg INH RQ6 [facility] Last Admin: 11/25/17 02:23 Dose: Not Given Aspirin (Aspirin Chewable) 81 mg PO DAILY [facility] Last Admin: 11/24/17 09:37 Dose: 81 mg Budesonide (Pulmicort Respules) 0.5 mg INH RQ12 [facility] Last Admin: 11/24/17 19:43 Dose: 0.5 mg Digoxin (Lanoxin) 0.125 mg PO DAILY@1800 [facility] Last Admin: 11/24/17 17:39 Dose: 0.125 mg Famotidine (Pepcid) 20 mg PO DAILY [facility] Last Admin: 11/24/17 09:37 Dose: 20 mg Furosemide (Lasix) 40 mg PO DAILY [facility] Last Admin: 11/24/17 09:37 Dose: 40 mg Guaifenesin (Robitussin) 100 mg PO Q4H PRN PRN Reason: Cough Last Admin: 11/24/17 09:40 Dose: 100 mg Methylprednisolone (Solu-Medrol) 20 mg IV Q12 [facility] Last Admin: 11/24/17 21:10 Dose: 20 mg Metolazone (Zaroxolyn) 2.5 mg PO DAILY [facility] Last Admin: 11/24/17 09:39 Dose: 2.5 mg Metoprolol Tartrate (Lopressor) 25 mg PO BID [facility] Last Admin: 11/24/17 17:39 Dose: 25 mg Midodrine (Proamatine) 5 mg PO DAILY [facility] Last Admin: 11/24/17 09:38 Dose: 5 mg Warfarin Sodium (Coumadin) 3 mg PO 1800 [facility] Stop: 11/25/17 18:01 - Labs Labs: 11/24/17 10:05 11/24/17 10:05 PT 17.7 SECONDS (9.7-12.2) H 11/24/17 10:05 INR 1.5 11/24/17 10:05 APTT 29 SECONDS (21-34) 11/24/17 10:05 - Additional Findings Additional findings: - Constitutional Appears: No Acute Distress - Head Exam Head Exam: ATRAUMATIC, NORMAL INSPECTION - Eye Exam Eye Exam: EOMI - ENT Exam ENT Exam: Mucous Membranes Moist - Respiratory Exam Respiratory Exam: Decreased Breath Sounds, Rales, wheezing. absent: Clear to Ausculation Bilateral - Cardiovascular Exam Cardiovascular Exam: Irregular Rhythm, +S1, +S2 - GI/Abdominal Exam GI & Abdominal Exam: Soft, Normal Bowel Sounds. absent: Distended, Firm, Tenderness - Extremities Exam Extremities Exam: Pedal Edema (extending from knee down to ankle b/l). absent: Tenderness - Neurological Exam Neurological Exam: Alert, Awake - Psychiatric Exam Psychiatric exam: Normal Affect, Normal Mood - Skin Skin Exam: Dry, Intact, Warm Assessment and Plan - Assessment and Plan (Free Text) Plan: 1) Systolic dysfunction with Acute on Chronic heart failure * Stable, afebrile * BNP on admission: 8160 * CXR 11/12/17: showed pulmonary venous congestion, small R pleural effusion, bibasilar atelectasis/infiltrate * Echo from 01/03/17 showed LVEF 12%, * Echo report 11/17/17: EF 10-15%, Systolic dysfunction severely impaired, mild to mod TR, mild Pulm HTN (see full report) * Cardiology on consult, Dr Arguelles, help appreciated * LFTs elevated but downtrending, likely secondary to worsening CHF, will continue to monitor * Not on ACEi/ARB due to chronic hypotension * Continue Digoxin 0.125mg * Metolazone 2.5mg PO daily * Lasix 40mg PO daily * Metoprolol Tartrate 25mg PO BID * Daily weights, Fluid restriction, Keep HOB elevated, Monitor I/Os * Bipap prn (patient does refuse the bipap and tries to take it off, educated the patient on importance of keeping bipap on) * Patient CO2 increased to 40 on 11/24/17-- need to enforce use of BiPap; discussed and educated patient importance of using bipap. * Repeat CXR (11/24/17): moderate cardiomegaly; improving pulmonary venous congestion and persistent small right pleural effusion. 2) Chronic Atrial fibrillation w/ AICD * Cardiology on consult, Dr. Arguelles, help appreciated * Chadsvasc score: 4- High risk for stroke, Hasbled: 2- Moderate risk for bleeding * Cardizem 20 mg given in ED, received one dose Digoxin 0.25mg 11/11/17 * Continue Metoprolol 25mg PO BID with holding parameters * Continue Digoxin 0.125mg daily * Coumadin 3mg PO tonight 3) History of Mechanical Mitral Valve * INR: 1.5 on admission (subtherapeutic), goal INR 2.5-3.5 * Patient was bridged with Lovenox 90mg Q12H (discontinued) * Coumadin 3mg * Diet to exclude leafy green vegetables * Monitor INR closely * 11/23- patient refused blood work. pharmacy will not authorize giving coumadin unless INR is drawn. Coumadin was not given on 11/23/17. * INR was drawn on 11/24/17-- INR 1.5. Coumadin 3mg PO ordered for tonight. Coumadin must be given nightly to reach therapeutic range. * INR 1.4 on 11/25- gave Coumadin 6mg PO 4) History of Coronary Artery Disease * Aspirin 81mg PO QD 5) History of COPD * Solumedrol 20mg IV Q12H (started 11/22/17) * Pulmicort 0.5mg Q12H * Duonebs * Pulm on consult, Dr Cobb, Help appreciated 6) Vertigo * Meclizine 12.5mg discontinued due to sedation 7) Orthostatic Hypotension * Midodrine 5mg PO daily 8) Dementia * Will hold Memantine at this time 9) Acute Kidney Injury * BUN 47/1.2 on 11/24, improved since decreasing diuretics * Will continue to monitor at this time Prophylactic Measures * Pepcid 20 mg po daily * SCDs contraindicated due to b/l LE edema * Coumadin 3mg PO daily * Heart Healthy Diet DISPO: Pending placement in rehab. Continue to give Coumadin to achieve therapeutic range.
[2017-11-25 08:22] LABS: INR 1.4; PROTHROMBIN TIME 16.6 SECONDS (9.7-12.2)
[2017-11-25] MEDS: Budesonide 0.5 mg/2 ml Inhal Susp UD INH SCH ×2 (08:23→19:26)
[2017-11-25] MEDS: metOLazone 2.5 MG TAB PO SCH (09:29)
[2017-11-25] MEDS: MethylPREDNISolone 40 mg Vial IV SCH ×3 (09:30→21:23)
[2017-11-25] MEDS: Digoxin 125 mcg (0.125 mg) Tab PO SCH (17:02)
[2017-11-26] MEDS: Albuterol 0.042% Inhal Sol (1.25 mg/3 mL) UD INH SCH ×4 (01:08→19:24)
--- NOTE | 2017-11-26 07:03 | CP.PCM.PN ---
Subjective - Date & Time of Evaluation Date of Evaluation: 11/26/17 Time of Evaluation: 07:03 Objective - Vital Signs/Intake and Output Vital Signs (last 24 hours): Temp Pulse Resp BP Pulse Ox 97.5 F L 97 H 20 105/68 95 11/25/17 23:30 11/26/17 01:00 11/25/17 23:30 11/25/17 23:30 11/25/17 23:30 Intake and Output: 11/26/17 11/26/17 06:59 18:59 Intake Total 800 Balance 800 - Medications Medications: Current Medications Albuterol Sulfate (Albuterol 0.042% Inhal Laura (1.25mg/3ml) Ud) 1.25 mg INH RQ6 [facility] Last Admin: 11/26/17 01:08 Dose: Not Given Aspirin (Aspirin Chewable) 81 mg PO DAILY [facility] Last Admin: 11/25/17 09:29 Dose: 81 mg Budesonide (Pulmicort Respules) 0.5 mg INH RQ12 [facility] Last Admin: 11/25/17 19:26 Dose: 0.5 mg Digoxin (Lanoxin) 0.125 mg PO DAILY@1800 [facility] Last Admin: 11/25/17 17:02 Dose: 0.125 mg Famotidine (Pepcid) 20 mg PO DAILY [facility] Last Admin: 11/25/17 09:29 Dose: 20 mg Furosemide (Lasix) 40 mg PO DAILY [facility] Last Admin: 11/25/17 09:29 Dose: 40 mg Guaifenesin (Robitussin) 100 mg PO Q4H PRN PRN Reason: Cough Last Admin: 11/24/17 09:40 Dose: 100 mg Methylprednisolone (Solu-Medrol) 20 mg IV Q12 [facility] Last Admin: 11/25/17 21:23 Dose: 20 mg Metolazone (Zaroxolyn) 2.5 mg PO DAILY [facility] Last Admin: 11/25/17 09:29 Dose: 2.5 mg Metoprolol Tartrate (Lopressor) 25 mg PO BID [facility] Last Admin: 11/25/17 17:04 Dose: Not Given Midodrine (Proamatine) 5 mg PO DAILY [facility] Last Admin: 11/25/17 09:29 Dose: 5 mg - Labs Labs: 11/24/17 10:05 11/24/17 10:05 PT 16.6 SECONDS (9.7-12.2) H 11/25/17 08:04 INR 1.4 11/25/17 08:04 APTT 26 SECONDS (21-34) 11/25/17 08:04
[2017-11-26] MEDS: Budesonide 0.5 mg/2 ml Inhal Susp UD INH SCH ×2 (07:36→19:25)
[2017-11-26] MEDS: metOLazone 2.5 MG TAB PO SCH (09:42)
[2017-11-26] MEDS: MethylPREDNISolone 40 mg Vial IV SCH (09:44)
[2017-11-26 12:00] LABS: BASO % 0.2 % (0.0-2.0); HEMOGLOBIN 14.1 g/dL (12.0-18.0); LYMPH # 0.4 K/uL (1.0-4.3); LYMPH % 3.4 % (20.0-40.0); MEAN CELL VOLUME 80.3 fL (80.0-94.0); MEAN CORPUSCULAR HEMOGLOBIN 25.9 pg (27.0-31.0); MEAN CORPUSCULAR HGB CONC 32.2 g/dL (33.0-37.0); MEAN PLATELET VOLUME 8.1 fL (7.2-11.7); MONO # 1.5 K/uL (0.0-0.8); MONO % 12.6 % (0.0-10.0); NEUT # 9.8 K/uL (1.8-7.0); NEUT % 83.8 % (50.0-75.0); NRBC % 0.1 % (0.0-2.0); PLATELET COUNT 268 K/uL (130-400); RBC 5.45 Mil/uL (4.40-5.90); RED CELL DISTRIBUTION WIDTH 17.3 % (11.5-14.5); WHITE BLOOD COUNT 11.8 K/uL (4.8-10.8)
[2017-11-26 12:03] LABS: INR 1.3; PROTHROMBIN TIME 14.7 SECONDS (9.7-12.2)
[2017-11-26 12:16] LABS: ALB/GLOB RATIO 1.2 (1.0-2.1); ALBUMIN 3.6 g/dL (3.5-5.0); ALT/SGPT 156 U/L (21-72); AST/SGOT 61 U/L (17-59); BLOOD UREA NITROGEN 44 mg/dL (9-20); CALCIUM 9.5 mg/dl (8.6-10.4); GFR AFRICAN-AMERICAN > 60; GFR NON-AFRICAN AMERICAN > 60
[2017-11-26 12:43] LABS: ANISOCYTOSIS SLIGHT; HYPOCHROMIC SLIGHT; LYMPHOCYTE 7 % (20-40); MONOCYTE 5 % (0-10); NEUTROPHIL 88 % (50-75); PLATELET ESTIMATE NORMAL (NORMAL); TOTAL CELLS COUNTED 100
[2017-11-26 12:44] LABS: POLYCHROMIC SLIGHT; TARGET CELLS SLIGHT
--- NOTE | 2017-11-26 13:21 | CP.PCM.PN ---
Subjective - Date & Time of Evaluation Date of Evaluation: 11/26/17 Time of Evaluation: 11:00 - Subjective Subjective: patient denies chest pain. He feels better. Objective - Vital Signs/Intake and Output Vital Signs (last 24 hours): Temp Pulse Resp BP Pulse Ox 97.3 F L 75 20 106/67 100 11/26/17 07:00 11/26/17 07:00 11/26/17 07:00 11/26/17 09:43 11/26/17 07:00 Intake and Output: 11/26/17 11/26/17 06:59 18:59 Intake Total 800 Balance 800 - Medications Medications: Current Medications Albuterol Sulfate (Albuterol 0.042% Inhal Laura (1.25mg/3ml) Ud) 1.25 mg INH RQ6 [facility] Last Admin: 11/26/17 07:36 Dose: 1.25 mg Aspirin (Aspirin Chewable) 81 mg PO DAILY [facility] Last Admin: 11/26/17 09:43 Dose: 81 mg Budesonide (Pulmicort Respules) 0.5 mg INH RQ12 [facility] Last Admin: 11/26/17 07:36 Dose: Not Given Digoxin (Lanoxin) 0.125 mg PO DAILY@1800 [facility] Last Admin: 11/25/17 17:02 Dose: 0.125 mg Famotidine (Pepcid) 20 mg PO DAILY [facility] Last Admin: 11/26/17 09:42 Dose: 20 mg Furosemide (Lasix) 40 mg PO DAILY [facility] Last Admin: 11/26/17 09:43 Dose: 40 mg Guaifenesin (Robitussin) 100 mg PO Q4H PRN PRN Reason: Cough Last Admin: 11/24/17 09:40 Dose: 100 mg Methylprednisolone (Solu-Medrol) 20 mg IV Q12 [facility] Last Admin: 11/26/17 09:44 Dose: 20 mg Metolazone (Zaroxolyn) 2.5 mg PO DAILY [facility] Last Admin: 11/26/17 09:42 Dose: 2.5 mg Metoprolol Tartrate (Lopressor) 25 mg PO BID [facility] Last Admin: 11/26/17 09:41 Dose: 25 mg Midodrine (Proamatine) 5 mg PO DAILY [facility] Last Admin: 11/26/17 09:41 Dose: 5 mg - Labs Labs: 11/26/17 11:48 11/26/17 11:48 PT 14.7 SECONDS (9.7-12.2) H 11/26/17 11:48 INR 1.3 11/26/17 11:48 APTT 25 SECONDS (21-34) 11/26/17 11:48 - Constitutional Appears: Non-toxic - Head Exam Head Exam: NORMAL INSPECTION - Eye Exam Eye Exam: Normal appearance - ENT Exam ENT Exam: Mucous Membranes Moist - Neck Exam Neck Exam: Full ROM - Respiratory Exam Respiratory Exam: Decreased Breath Sounds - Cardiovascular Exam Cardiovascular Exam: REGULAR RHYTHM - GI/Abdominal Exam GI & Abdominal Exam: Normal Bowel Sounds - Rectal Exam Rectal Exam: Deferred - Extremities Exam Extremities Exam: Pedal Edema - Back Exam Back Exam: NORMAL INSPECTION - Neurological Exam Neurological Exam: Alert - Psychiatric Exam Psychiatric exam: Normal Affect - Skin Skin Exam: Normal Color Assessment and Plan (1) Systolic dysfunction with acute on chronic heart failure Assessment & Plan: improving. continue current medication Status: Acute (2) CAD (coronary artery disease) Status: Chronic (3) Chronic atrial fibrillation Assessment & Plan: coitnue coumadin Status: Chronic (4) H/O mitral valve replacement with mechanical valve Assessment & Plan: coumadin therapy Status: Chronic
--- NOTE | 2017-11-26 15:18 | CP.PCM.DIS ---
Provider - Provider Date of Admission: 11/11/17 10:47 Attending physician: Johnnie Otoole Jr, MD Primary care physician: Dr. Hanks Consults: Cardiology: Dr. Arguelles Pulmonology: Dr. Cobb Time Spent in preparation of Discharge (in minutes): 45 Hospital Course - Lab Results Lab Results: Most Recent Lab Values WBC 11.8 K/uL (4.8-10.8) H 11/26/17 11:48 RBC 5.45 Mil/uL (4.40-5.90) 11/26/17 11:48 Hgb 14.1 g/dL (12.0-18.0) 11/26/17 11:48 Hct 43.8 % (35.0-51.0) 11/26/17 11:48 MCV 80.3 fL (80.0-94.0) 11/26/17 11:48 MCH 25.9 pg (27.0-31.0) L 11/26/17 11:48 MCHC 32.2 g/dL (33.0-37.0) L 11/26/17 11:48 RDW 17.3 % (11.5-14.5) H 11/26/17 11:48 Plt Count 268 K/uL (130-400) 11/26/17 11:48 MPV 8.1 fL (7.2-11.7) 11/26/17 11:48 Neut % (Auto) 83.8 % (50.0-75.0) H 11/26/17 11:48 Lymph % (Auto) 3.4 % (20.0-40.0) L 11/26/17 11:48 Page % (Auto) 12.6 % (0.0-10.0) H 11/26/17 11:48 Eos % (Auto) 0.0 % (0.0-4.0) 11/26/17 11:48 Baso % (Auto) 0.2 % (0.0-2.0) 11/26/17 11:48 Neut # 9.8 K/uL (1.8-7.0) H 11/26/17 11:48 Lymph # 0.4 K/uL (1.0-4.3) L 11/26/17 11:48 Page # 1.5 K/uL (0.0-0.8) H 11/26/17 11:48 Eos # 0.0 K/uL (0.0-0.7) 11/26/17 11:48 Baso # 0.0 K/uL (0.0-0.2) 11/26/17 11:48 Neutrophils % (Manual) 88 % (50-75) H 11/26/17 11:48 Band Neutrophils % 1 % (0-2) 11/22/17 11:32 Lymphocytes % (Manual) 7 % (20-40) L 11/26/17 11:48 Reactive Lymphs % 1 % (0-0) H 11/22/17 11:32 Monocytes % (Manual) 5 % (0-10) 11/26/17 11:48 Eosinophils % (Manual) 1 % (0-4) 11/11/17 09:58 Smudge Cells Present 11/21/17 17:16 Toxic Granulation Present 11/21/17 17:16 Platelet Estimate Normal (NORMAL) 11/26/17 11:48 Large Platelets Present 11/22/17 11:32 Polychromasia Slight 11/26/17 11:48 Hypochromasia (manual) Slight 11/26/17 11:48 Poikilocytosis (manual Slight 11/24/17 10:05 Anisocytosis (manual) Slight 11/26/17 11:48 Microcytosis (manual) Slight 11/21/17 17:16 Target Cells Slight 11/26/17 11:48 Tear Drop Cells Slight 11/11/17 09:58 Ovalocytes Slight 11/24/17 10:05 PT 14.7 SECONDS (9.7-12.2) H 11/26/17 11:48 INR 1.3 11/26/17 11:48 APTT 25 SECONDS (21-34) 11/26/17 11:48 Sodium 128 mmol/L (132-148) L 11/26/17 11:48 Potassium 3.9 mmol/L (3.6-5.2) 11/26/17 11:48 Chloride 82 mmol/L (98-107) L 11/26/17 11:48 Carbon Dioxide 39 mmol/L (22-30) H 11/26/17 11:48 Anion Gap 12 (10-20) 11/26/17 11:48 BUN 44 mg/dL (9-20) H 11/26/17 11:48 Creatinine 1.0 mg/dL (0.8-1.5) 11/26/17 11:48 Est GFR ( Amer) > 60 11/26/17 11:48 Est GFR (Non-Af Amer) > 60 11/26/17 11:48 POC Glucose (mg/dL) 208 mg/dL (65-110) H 11/17/17 11:13 Random Glucose 213 mg/dL (75-110) H 11/26/17 11:48 Calcium 9.5 mg/dl (8.6-10.4) 11/26/17 11:48 Phosphorus 2.4 mg/dL (2.5-4.5) L 11/16/17 08:44 Magnesium 2.1 mg/dL (1.6-2.3) 11/16/17 08:44 Total Bilirubin 0.9 mg/dL (0.2-1.3) 11/26/17 11:48 AST 61 U/L (17-59) H 11/26/17 11:48 ALT 156 U/L (21-72) H 11/26/17 11:48 Alkaline Phosphatase 110 U/L (38-126) 11/26/17 11:48 Troponin I 0.0510 ng/mL (0.00-0.120) 11/11/17 09:58 NT-Pro-B Natriuret Pep 8160 pg/mL (0-900) H 11/11/17 09:58 Total Protein 6.6 g/dL (6.3-8.3) 11/26/17 11:48 Albumin 3.6 g/dL (3.5-5.0) 11/26/17 11:48 Globulin 2.9 gm/dL (2.2-3.9) 11/26/17 11:48 Albumin/Globulin Ratio 1.2 (1.0-2.1) 11/26/17 11:48 Ur Random Creatinine 31.5 mg/dL 11/20/17 01:20 Ur Random Sodium 66 mmol/L 11/20/17 01:20 Ur Random Urea Nitrogn 451 mg/dL 11/20/17 01:23 Digoxin < 0.4 ng/mL (0.8-2.0) L 11/11/17 09:58 - Hospital Course Hospital Course: CC: "chest pain" HPI: Patient is a 71 y.o. male with PMHx of HTN, ID, CHF, CAD with CABG, who was brought to the ED by EMS with complaints of chest pain. Patient's history was provided by him and his . Patient states that he started experiencing chest pains on 11/10/17 while watching TV. He reports that the pain is localized to left sided chest, and left shoulder with no radiation. Patient describes the pain as dull and constant, and rates it at 10/10 when it started, and currently at 6/10. He denies any palliative or provocative factors. He also complains of cough, shortness of breath, and leg swelling which all started about one week ago. His states that he has not been taking any medications except Aspirin 81 mg for the last month because he is overwhelmed by the amount of medication. At his baseline, patient states that he is unable to walk half a block without being short of breath. Patient states that he had a similar episode ~2 months ago and was hospitalized. Patient follows Patient denies headache, vision changes, abdominal pain, nausea, vomiting, diarrhea, constipation, dysuria, urinary frequency, urinary hesitancy, joint pain, loss of balance. Pulm: Dr. Idris Sommers PMD: [facility] PMHx: ID, Atrial fibrillation, CAD, CHF, HTN PSHx: CABG in 2009 (patient unsure of exact year), mechanical valve placement Medications: Midodrine 5 mg, Memantine 5 mg, Meclizine 12.5 mg, Aspirin 81 mg, Metoprolol 25 mg Social Hx: Smokes cigarettes 1 pack/week since age 13, used to drink alcohol in his 20s, denies any recreational drug use. Lives at home with . Allergies: NKDA Discharge Exam - Head Exam Head Exam: NORMAL INSPECTION - Eye Exam Eye Exam: EOMI, Normal appearance - ENT Exam ENT Exam: Mucous Membranes Moist - Respiratory Exam Respiratory Exam: Decreased Breath Sounds, Rhonchi, Wheezes. absent: Respiratory Distress - Cardiovascular Exam Cardiovascular Exam: +S1, +S2. absent: Bradycardia, Tachycardia - GI/Abdominal Exam GI & Abdominal Exam: Normal Bowel Sounds, Unremarkable. absent: Distended, Soft , Tenderness - Extremities Exam Extremities exam: pedal edema - Neurological Exam Neurological exam: Alert, Oriented x3 - Psychiatric Exam Psychiatric exam: Normal Affect, Normal Mood - Skin Skin Exam: Dry, Intact, Warm Discharge Plan - Discharge Medications Prescriptions: Aspirin [Aspirin Chewable] 81 mg PO DAILY #30 chew Furosemide [Lasix] 40 mg PO BID #60 tablet Methylprednisolone [Medrol Dose Pack (21 tabs)] 4 mg PO DAILY #21 mg Metoprolol Tartrate [Lopressor] 25 mg PO BID #60 tab Midodrine [Proamatine] 5 mg PO DAILY #30 tab Warfarin [Coumadin] 3 mg PO 1800 #30 tab - Follow Up Plan Condition: GUARDED Disposition: REHAB FACILITY/REHAB UNIT Instructions: Warfarin (By mouth), Heart Failure (DC), Heart Healthy Diet (DC) , Vitamin K in Foods (DC) Additional Instructions: Patient is clear for discharge to rehab, [facility]. Please continue medications as prescribed. Continue to monitor INR. Please follow up with PMD, Dr. Otoole, within 1-2 weeks of discharge Please follow up with Cardiology upon discharge If symptoms reoccur or worsen, patient should return to the ED. Referrals: Johnnie Otoole Jr., MD [Medical Doctor] - Tara Arguelles MD [Staff Provider] -
[2017-11-26 18:00] VITALS: PULSE 80; TEMP 98.1; O2SAT 95
[2017-11-26 18:46] VITALS: BP 107/69; PULSE 82
[2017-11-26] MEDS: Digoxin 125 mcg (0.125 mg) Tab PO SCH (18:46)
--- NOTE | 2017-11-27 07:25 | PCM.HF ---
Heart Failure Core Measure - Heart Failure Ejection Fraction: Less Than 40 % EMILY Inhibitor Prescribed: No Contraindication/Reason for not providing: RENAL FUNCTION Beta-Lexx Prescribed: Metoprolol Succinate Angiotensin II Receptor Lexx Prescribed: No Contraindication/Reason for not providing: RENAL FUNCTION AnticoagulationTherapy for Atrial Fibrillation/Atrialflutter: Yes Aldosterone Antagonist Prescribed: No Contraindication/Reason for not providing: LOW BP Hydralazine Nitrate Prescribed: No Contraindication/Reason for not providing: LOW BP Implantable Cardioverter Defibrillator Therapy: Yes Cardiac Resynchronization Therapy Prescribed: No Contraindication/Reason for not providing: PACEMAKER
== END 2017-11-26 19:25 | DRG 292 ==
LOC: C.ER 09:31 → C.9E 10:47 → C.5S 13:45
PROVIDERS: ADMIT Internal Medicine; ATTEND Internal Medicine
PROC: 5A09557 Assistance with Respiratory Ventilation, Greater than 96 Consecutive Hours, Continuous Positive Airway Pressure (ICD-10-PCS; 2017-11-12)
PROC: 02HV33Z Insertion of Infusion Device into Superior Vena Cava, Percutaneous Approach (ICD-10-PCS; principal; 2017-11-16)
DX: I11.0 Hypertensive heart disease with heart failure (principal); N17.9 Acute kidney failure, unspecified; I27.20 Pulmonary hypertension, unspecified; J44.1 Chronic obstructive pulmonary disease with (acute) exacerbation; I48.2 Chronic atrial fibrillation; J98.11 Atelectasis; G30.9 Alzheimer's disease, unspecified; F02.80 Dementia in other diseases classified elsewhere, unspecified severity, without behavioral disturbance, psychotic disturbance, mood disturbance, and anxiety; I25.5 Ischemic cardiomyopathy; I25.10 Atherosclerotic heart disease of native coronary artery without angina pectoris; I50.23 Acute on chronic systolic (congestive) heart failure; I95.1 Orthostatic hypotension; F17.210 Nicotine dependence, cigarettes, uncomplicated; Z95.0 Presence of cardiac pacemaker; I25.2 Old myocardial infarction; Z95.2 Presence of prosthetic heart valve; Z95.1 Presence of aortocoronary bypass graft